=== PATIENT | male | born 1950 | race Caucasian/White ===

== ENCOUNTER 2018-01-22 11:37 | Emergency (ER) | payer BC, OTHER ==
--- OUTSIDE RECORDS SUMMARY | 2018-01-22 11:40 | XMS REPORT | Clinical Summary ---
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 Last Filed Vital Signs Not on file Plan of Treatment Health Maintenance Due Date Last Done Comments COLON CANCER SCREENING 2001 SHINGRIX VACCINE (1 of 2) 2001 ZOSTER VACCINE 2011 PNEUMOCOCCAL POLYSACCHARIDE VACCINE AGE 65 AND OVER 01/29/2016 PNEUMOCOCCAL-13 01/29/2016 INFLUENZA VACCINE 09/21/2017 Procedures Procedure Name Priority Date/Time Associated Diagnosis Comments CARDIAC MRI Routine 02/15/2017 12:24 PM Disorder of iron Results for this FUNCTION ONLY NON INDOOR LANDSCAPE ARCHITECT metabolism procedure are in CONTRAST Hepatic cirrhosis the results due to primary section. biliary cholangitis after 01/21/2017 Results Cardiac mri heart fx only noncontrast (02/15/2017 12:24 PM INDOOR LANDSCAPE ARCHITECT) Narrative Performed At [facility] CMR Report Name: DORIAN TOMAS :1950 Scan Date: 2017-02-15 12:15:13 Signed by Bakari Dykes M.D. (uid:20) 14:18:55. SUMMARY LIMITED STUDY TO ASSESS FOR IRON OVERLOAD. 1.There is no CMR criteria for cardiac iron overload (cardiac T2* 28 msec). Borderline criteria for hepatic iron overload (T2* 8msec ). CORE EXAM MEASUREMENTS IRON QUANTIFICATION MYOCARDIAL T2*:28 msec LIVER T2*:8 msec VASCULAR SCAN INFO GENERAL SEDATION SEDATION USED?:No CONTRAST AGENT FEMALE:No OR BLACK:Unknown VITALS HEIGHT:70 in HEIGHT:177.8 cm BODY WEIGHT:284.99 lbs BODY WEIGHT:129.27 kgs BSA::2.43 m^2 SYSTOLIC BP:131 mmHg DIASTOLIC BP:66 mmHg HEART RATE:68 BPM HEART RHYTHM:Sinus Rhythm PULSE SEQUENCE PULSE SEQUENCES:Other... OTHER, DESCRIBE::Spoiled gradient echo SETUP TYPE:Clinical INPATIENT:No LOCATION:[facility] INCOMPLETE SCAN:No REASON(S) FOR SCAN:Iron Overload Assessment ATTENDING PHYSICIAN:Segundo Canales TECHNICIANS:Cuate MORA ASSISTANTS:1) Jennifer Berman RN 2) Hugh Humphries Patient Account [id number] CPT Codes 25308 ICD10 Codes E83.19 Procedure Note Interface, Radiology Results In - 02/16/2017 2:19 PM RIMA [facility]on CMR Report Name: DORIAN TOMAS : 1950 Scan Date: 2017-02-15 12:15:13 Signed by Bakari Dykes M.D. (uid:20) 14:18:55. SUMMARY LIMITED STUDY TO ASSESS FOR IRON OVERLOAD. 1. There is no CMR criteria for cardiac iron overload (cardiac T2* 28 msec). Borderline criteria for hepatic iron overload (T2* 8 msec ). CORE EXAM MEASUREMENTS IRON QUANTIFICATION MYOCARDIAL T2*: 28 msec LIVER T2*: 8 msec VASCULAR SCAN INFO GENERAL SEDATION SEDATION USED?: No CONTRAST AGENT FEMALE: No OR BLACK: Unknown VITALS HEIGHT: 70 in HEIGHT: 177.8 cm BODY WEIGHT: 284.99 lbs BODY WEIGHT: 129.27 kgs BSA:: 2.43 m^2 SYSTOLIC BP: 131 mmHg DIASTOLIC BP: 66 mmHg HEART RATE: 68 BPM HEART RHYTHM: Sinus Rhythm PULSE SEQUENCE PULSE SEQUENCES: Other... OTHER, DESCRIBE:: Spoiled gradient echo SETUP TYPE: Clinical INPATIENT: No LOCATION: [facility] INCOMPLETE SCAN: No REASON(S) FOR SCAN: Iron Overload Assessment ATTENDING PHYSICIAN: Segundo Canales TECHNICIANS: Cuate Alonso RT ASSISTANTS: 1) Jennifer Berman RN 2) Hugh Humphries Patient Account [id number] CPT Codes 76685 ICD10 Codes E83.19 Performing Organization Address City/State/Zipcode Phone Number [facility] [address] [place] [address] after 01/21/2017 Insurance Payer Benefit Plan / Group Subscriber ID Type Phone Address BCBS BCBS CHOICE PPO/FEDERAL EMPL PPO xxxxxxxxxxxx PPO Advance Directives Patient has advance care planning documents on file. For more information, please contact:Chace Britton[address] [place] [address]
[2018-01-22 13:15] LABS: Absolute Lymphocytes (CBC) 1.2 K/uL (0.7-4.9); Absolute Monocytes 0.9 K/uL (0.1-1.3); Absolute Neutrophil 5.6 K/uL (1.8-8.0); Basophils % 0.5 % (0-1.3); Eosinophils % 0.6 % (0-4.4); Hematocrit 39.1 % (39.6-49.0); Lymphocytes % 15.8 % (15.3-44.8); MCV 101.1 fL (80-100); Monocytes % 11.2 % (3.3-12.3); RBC Red Blood Cell Count 3.87 M/uL (4.33-5.43)
[2018-01-22 13:19] LABS: Protime INR 1.18
[2018-01-22] MEDS ORDERED: NA CHLORIDE 0.9% 1,000 ML ONE (13:20)
[2018-01-22] MEDS ORDERED: ONDANSETRON 4 MG/2 ML VIAL ONE (13:20)
[2018-01-22] MEDS ORDERED: FENTANYL CITR 100 MCG/2 ML ONE (13:20)
[2018-01-22 13:33] LABS: Albumin 2.6 g/dL (3.4-5.0); Bilirubin Total 2.4 mg/dL (0.2-1.0); Potassium 4.1 mmol/L (3.5-5.1); Protein, Total 6.9 g/dL (6.4-8.2)
--- NOTE | 2018-01-22 13:40 | RAD REPORT ---
EXAM DESCRIPTION: CT - Spine Lumbar Wo Con - 01/22/2018 1:24 pm CLINICAL HISTORY: Back pain, radiculopathy COMPARISON: CT abdomen December 2014 -multiplanar reconstruction performed at the time of the study TECHNIQUE: Thin section axial imaging of the lumbar spine was performed. Sagittal and coronal recon struction images were generated and reviewed. All CT scans are performed using dose optimization technique as appropriate and may include automated exposure control or mA/KV adjustment according to patient size. FINDINGS: L2 body shows approximately 30% compression fracture deformity primarily involving the olegario tral aspect of the superior endplate. Posterior wall height is preserved. No acute fracture line seen in 2014 CT study shows this to be a stable finding. Remaining lumbar bodies are normal in height. Endplate spurring is seen in the lumbar spine. No lytic , sclerotic or expansile bony destructive process. Canal is 11 mm at the L1-2 disc level. Mild broad-based bulging of disc material seen at L2-3 with ce ntral canal 12 mm. Facet degenerative changes are present at this level. Mild disc bulging present at L3-4 with facet degenerative change. Thecal sac is 11 mm. No significant foraminal encroachment. Advanced L4-5 facet joint degenerative change along with disc bulge. There is encroachment on all shweta es of the thecal sac with the canal borderline stenotic at 10 mm. Bilateral foraminal encroachment pr esent. L5-S1 shows no central spinal stenosis. Facet degenerative change contributes to bilateral foraminal encroachment. IMPRESSION: L4-5 borderline central spinal stenosis along with bilateral foraminal encroachment from prominent facet hypertrophy, endplate spurring and disc bulge. Bilateral L5-S1 foraminal encroachment from uncovertebral joint hypertrophy, disc bulge and facet hyp ertrophy. Approximately 30% L2 compression fracture deformity along the superior endplate. This is stable.
--- NOTE | 2018-01-22 14:12 | EDPHYS ---
Physician Documentation [facility] Name: Dorian Cruz Age: 67 yrs Sex: Male : 1950 Arrival Date: 01/22/2018 Time: 11:43 Bed 23 Private MD: Jan Kenney ED Physician Fredrick Bell HPI: 01/22 12:53 This 67 yrs old Male presents to ER via Wheelchair with complaints of Leg ranjan Swelling, Leg Pain. 12:53 The patient presents with decreased range of motion. The complaints affect the lateral ranjan aspect of right thigh, right hamstring, medial aspect of right thigh and right quadriceps. Context: The problem was sustained at an unknown site. Onset: The symptoms/episode began/occurred 2 day(s) ago. Modifying factors: The symptoms are alleviated by remaining still, the symptoms are aggravated by movement. Associated signs and symptoms: The patient has no apparent associated signs or symptoms. Severity of symptoms: At their worst the symptoms were mild, moderate, in the emergency department the symptoms are unchanged. The patient has not experienced similar symptoms in the past. Historical: - Allergies: 12:26 No Known Allergies; aj1 - Home Meds: 12:26 Diuretic oral tab [Active]; aj1 - PMHx: 12:26 Cirrhosis; Hepatitis; aj1 - PSHx: 12:26 steel plate in left knee; Tonsillectomy; aj1 - Immunization history:: Flu vaccine is not up to date. - Social history:: Smoking status: Patient/guardian denies using tobacco. - Ebola Screening: : Patient denies travel to an Ebola-affected area in the 21 days before illness onset. - Family history:: not pertinent. ROS: 12:53 Constitutional: Negative for fever, chills, and weight loss, Eyes: Negative for injury, ranjan pain, redness, and discharge, ENT: Negative for injury, pain, and discharge, Neck: Negative for injury, pain, and swelling, Cardiovascular: Negative for chest pain, palpitations, and edema, Respiratory: Negative for shortness of breath, cough, wheezing, and pleuritic chest pain, Abdomen/GI: Negative for abdominal pain, nausea, vomiting, diarrhea, and constipation, : Negative for injury, bleeding, discharge, and swelling, Skin: Negative for injury, rash, and discoloration, Neuro: Negative for headache, weakness, numbness, tingling, and seizure, Psych: Negative for depression, anxiety, suicide ideation, homicidal ideation, and hallucinations, Allergy/Immunology: Negative for hives, rash, and allergies, Endocrine: Negative for neck swelling, polydipsia, polyuria, polyphagia, and marked weight changes, Hematologic/Lymphatic: Negative for swollen nodes, abnormal bleeding, and unusual bruising. 12:53 Back: Positive for decreased range of motion, pain at rest, of the lumbar area. Exam: 12:53 Constitutional: This is a well developed, well nourished patient who is awake, alert, ranjan and in no acute distress. Head/Face: Normocephalic, atraumatic. Eyes: Pupils equal round and reactive to light, extra-ocular motions intact. Lids and lashes normal. Conjunctiva and sclera are non-icteric and not injected. Cornea within normal limits. Periorbital areas with no swelling, redness, or edema. ENT: Nares patent. No nasal discharge, no septal abnormalities noted. Tympanic membranes are normal and external auditory canals are clear. Oropharynx with no redness, swelling, or masses, exudates, or evidence of obstruction, uvula midline. Mucous membranes moist. Neck: Trachea midline, no thyromegaly or masses palpated, and no cervical lymphadenopathy. Supple, full range of motion without nuchal rigidity, or vertebral point tenderness. No Meningismus. Chest/axilla: Normal chest wall appearance and motion. Nontender with no deformity. No lesions are appreciated. Cardiovascular: Regular rate and rhythm with a normal S1 and S2. No gallops, murmurs, or rubs. Normal PMI, no JVD. No pulse deficits. Respiratory: Lungs have equal breath sounds bilaterally, clear to auscultation and percussion. No rales, rhonchi or wheezes noted. No increased work of breathing, no retractions or nasal flaring. Abdomen/GI: Soft, non-tender, with normal bowel sounds. No distension or tympany. No guarding or rebound. No evidence of tenderness throughout. Back: No spinal tenderness. No costovertebral tenderness. Full range of motion. Skin: Warm, dry with normal turgor. Normal color with no rashes, no lesions, and no evidence of cellulitis. Neuro: Awake and alert, GCS 15, oriented to person, place, time, and situation. Cranial nerves II-XII grossly intact. Motor strength 5/5 in all extremities. Sensory grossly intact. Cerebellar exam normal. Normal gait. Psych: Awake, alert, with orientation to person, place and time. Behavior, mood, and affect are within normal limits. 12:53 Musculoskeletal/extremity: ROM: intact in all extremities, full active range of motion, Pulses: noted to be 4+ in the bilateral radial, brachial, femoral, popliteal, posterior tibial and and dorsalis pedis arteries., Sensation intact. Compartment Syndrome exam of affected extremity: is normal. DVT Exam: no swelling, negative Homans' sign noted on exam, no appreciated bluish discoloration, no erythema, no increased warmth, pain, tenderness. Vital Signs: 12:26 BP 117 / 56; Pulse 85; Resp 18; Temp 99.8(O); Pulse Ox 99% on R/A; Weight 134.[address] [facility] (R); Height 5 ft. 10 in. (177.80 cm) (R); Pain 6/10; 12:50 BP 122 / 75; Pulse 80; Resp 18; Pulse Ox 97% on R/A; aj1 14:06 BP 110 / 69; Pulse 79; Resp 18; Pulse Ox 97% on R/A; aj1 12:26 Body Mass Index 42.47 (134.26 kg, 177.[address] cm) [facility] MDM: 12:50 Patient medically screened. [facility] 12 12:53 Order name: CBC with Diff; Complete Time: 13:59 [facility] 01/22 12:53 Order name: Comprehensive Metabolic Panel; Complete Time: 13:59 [facility] 01/22 12:53 Order name: Lipase; Complete Time: 13:59 [facility] 01/22 12:53 Order name: AMMONIA; Complete Time: 13:59 [facility] 01/22 12:53 Order name: PT-INR; Complete Time: 13:59 [facility] 01/22 12:53 Order name: CT Lumbar Spine Wo Con; Complete Time: 13:59 [facility] 01/22 12:57 Order name: US Extremity Venous W Compression Laurent ranjan Administered Medications: 13:36 Drug: NS 0.9% 1000 ml Route: IV; Rate: 125 ml/hr; Site: right antecubital; [facility] 15:00 Follow up: IV Status: Completed infusion; IV Intake: 250ml [facility] 13:36 Drug: fentaNYL (PF) 25 mcg Route: IVP; Site: right antecubital; aj1 14:00 Follow up: Response: No adverse reaction aj1 13:36 Drug: Zofran 4 mg Route: IVP; Site: right antecubital; aj1 14:00 Follow up: Response: No adverse reaction aj1 14:43 Drug: Decadron - Dexamethasone 10 mg Route: IVP; Site: right antecubital; aj1 15:00 Follow up: Response: No adverse reaction aj1 15:16 Not Given (Patient Refused): fentaNYL (PF) 25 mcg IVP once mg2 Disposition: 01/22/18 14:11 Discharged to Home. Impression: Unspecified cirrhosis of liver, Low back pain, Fracture of second lumbar vertebra - compression , 30%, stable, Spinal stenosis, lumbar region, Sciatica, Obesity, unspecified. - Condition is Stable. - Discharge Instructions: Back Pain, Adult, Chronic Back Pain, Musculoskeletal Pain, Obesity, Adult, Back Injury Prevention, Twza-kg-Sjsd, Back Pain, Adult, Qsoz-ar-[id number]. - Prescriptions for Valium 2 mg Oral Tablet - take 1 tablet by ORAL route every 8 hours As needed; 20 tablet. Tramadol 50 mg Oral Tablet - take 1 tablet by ORAL route every 8 hours as needed; 24 tablet. Medrol (Nakul) 4 mg Oral Tablets, Dose Pack - take 1 tablet by ORAL route as directed - follow package instructions; 1 packet. - Medication Reconciliation Form, Thank You Letter, Antibiotic Education, Prescription Opioid Use, Work release form form. - Follow up: Jan Kenney MD; When: 2 - 3 days; Reason: Recheck today's complaints, Continuance of care, Re-evaluation by your physician. - Problem is new. - Symptoms have improved. Signatures: Dispatcher [employer] EDNH Luz Li RN RN aj1 Fredrick Bell MD MD cha Gardose, Michele RN RN mg2 Corrections: (The following items were deleted from the chart) 14:35 12:30 Extremity Venous Uni Ltd+[email or web address] ordered. [facility] 15:18 14:11 01/22/2018 14:11 Discharged to Home. Impression: Unspecified cirrhosis of liver; mg2 Low back pain; Fracture of second lumbar vertebra - compression , 30%, stable; Spinal stenosis, lumbar region; Sciatica; Obesity, unspecified. Condition is Stable. Forms are Medication Reconciliation Form, Thank You Letter, Antibiotic Education, Prescription Opioid Use. Follow up: Jan Kenney; When: 2 - 3 days; Reason: Recheck today's complaints, Continuance of care, Re-evaluation by your physician. Problem is new. Symptoms have improved. ranjan
--- NOTE | 2018-01-22 14:12 | ER ---
Nurse's Notes [facility] Name: Dorian Cruz Age: 67 yrs Sex: Male : 1950 Arrival Date: 01/22/2018 Time: 11:43 Bed 23 Private MD: Jan Kenney Diagnosis: Unspecified cirrhosis of liver;Low back pain;Fracture of second lumbar vertebra-compression , 30%, stable;Spinal stenosis, lumbar region;Sciatica;Obesity, unspecified Presentation: 01/22 12:24 Presenting complaint: Patient states: "Jere night I thought I had a bruise on my aj1 right hip, yesterday I tried icy hot and a heading pad and they didn't do a thing for me. My sister is telling me that my right leg is bigger than my left and I'm afraid that I might have a blood clot." Patient reports that blood clots run in his family. Transition of care: patient was not received from another setting of care. Onset of symptoms was January 20, 2018. Risk Assessment: Do you want to hurt yourself or someone else? Patient reports no desire to harm self or others. Initial Sepsis Screen: Does the patient meet any 2 criteria? No. Patient's initial sepsis screen is negative. Does the patient have a suspected source of infection? No. Patient's initial sepsis screen is negative. Care prior to arrival: None. 12:24 Method Of Arrival: Wheelchair aj1 12:24 Acuity: NGOC 3 aj1 Triage Assessment: 12:26 General: Appears in no apparent distress. uncomfortable, Behavior is calm, cooperative, aj1 appropriate for age. Pain: Complains of pain in right leg Pain currently is 6 out of 10 on a pain scale. Neuro: Level of Consciousness is awake, alert, obeys commands. Cardiovascular: Patient's skin is warm and dry. Respiratory: Airway is patent Respiratory effort is even, unlabored, Respiratory pattern is regular, symmetrical. Historical: - Allergies: 12:26 No Known Allergies; aj1 - Home Meds: 12:26 Diuretic oral tab [Active]; aj1 - PMHx: 12:26 Cirrhosis; Hepatitis; aj1 - PSHx: 12:26 steel plate in left knee; Tonsillectomy; aj1 - Immunization history:: Flu vaccine is not up to date. - Social history:: Smoking status: Patient/guardian denies using tobacco. - Ebola Screening: : Patient denies travel to an Ebola-affected area in the 21 days before illness onset. - Family history:: not pertinent. Screenin:50 Abuse screen: Denies threats or abuse. Denies injuries from another. Nutritional aj1 screening: No deficits noted. Tuberculosis screening: No symptoms or risk factors identified. 15:18 Fall Risk IV access (20 points). Ambulatory Aid- None/Bed Rest/Nurse Assist (0 pts). mg2 Assessment: 12:50 General: Appears in no apparent distress. uncomfortable, Behavior is calm, cooperative, aj1 appropriate for age. Pain: Complains of pain in low back area and right leg. Neuro: Level of Consciousness is awake, alert, obeys commands. Cardiovascular: Heart tones S1 S2 present Patient's skin is warm and dry. Rhythm is regular. Respiratory: Airway is patent Respiratory effort is even, unlabored, Respiratory pattern is regular, symmetrical, Denies shortness of breath. GI: No signs and/or symptoms were reported involving the gastrointestinal system. : No signs and/or symptoms were reported regarding the genitourinary system. EENT: No signs and/or symptoms were reported regarding the EENT system. Derm: No signs and/or symptoms reported regarding the dermatologic system. Skin is pink, warm \\T\\ dry. normal. Musculoskeletal: Swelling present in right leg. 14:06 Reassessment: Patient appears in no apparent distress at this time. No changes from aj1 previously documented assessment. Patient and/or family updated on plan of care and expected duration. Pain level reassessed. Patient is alert, oriented x 3, equal unlabored respirations, skin warm/dry/pink. Vital Signs: 12:26 BP 117 / 56; Pulse 85; Resp 18; Temp 99.8(O); Pulse Ox 99% on R/A; Weight 134.26 kg aj1 (R); Height 5 ft. 10 in. (177.80 cm) (R); Pain 6/10; 12:50 BP 122 / 75; Pulse 80; Resp 18; Pulse Ox 97% on R/A; aj1 14:06 BP 110 / 69; Pulse 79; Resp 18; Pulse Ox 97% on R/A; aj1 12:26 Body Mass Index 42.47 (134.26 kg, 177.80 cm) aj1 ED Course: 11:43 Patient arrived in ED. sb2 11:43 Jan Kenney MD is Private Physician. sb2 12:25 Triage completed. aj1 12:26 Arm band placed on Patient placed in waiting room, Patient notified of wait time. aj1 12:50 Fredrick Bell MD is Attending Physician. ranjan 12:50 Patient has correct armband on for positive identification. Placed in gown. Bed in low aj1 position. Call light in reach. nuclear monitoring technician on. Pulse ox on. NIBP on. 12:50 No provider procedures requiring assistance completed. Inserted saline lock: 22 gauge aj1 in right antecubital area, using aseptic technique. Blood collected. 12:53 Luz Li, RN is Primary Nurse. aj1 13:23 CT completed. Patient moved to CT via stretcher. Patient moved back from CT. cw1 13:24 CT Lumbar Spine Wo Con In Process Unspecified. EDMS 14:08 Jan Kenney MD is Referral Physician. ranjan 14:35 US Extremity Venous W Compression Laurent In Process Unspecified. EDMS 15:18 IV discontinued, intact, bleeding controlled, No redness/swelling at site. Pressure mg2 dressing applied. Administered Medications: 13:36 Drug: NS 0.9% 1000 ml Route: IV; Rate: 125 ml/hr; Site: right antecubital; aj1 15:00 Follow up: IV Status: Completed infusion; IV Intake: 250ml aj1 13:36 Drug: fentaNYL (PF) 25 mcg Route: IVP; Site: right antecubital; aj1 14:00 Follow up: Response: No adverse reaction aj1 13:36 Drug: Zofran 4 mg Route: IVP; Site: right antecubital; aj1 14:00 Follow up: Response: No adverse reaction aj1 14:43 Drug: Decadron - Dexamethasone 10 mg Route: IVP; Site: right antecubital; aj1 15:00 Follow up: Response: No adverse reaction aj1 15:16 Not Given (Patient Refused): fentaNYL (PF) 25 mcg IVP once mg2 Intake: 15:00 IV: 250ml; Total: 250ml. aj1 Outcome: 14:11 Discharge ordered by . ranjan 15:18 Discharged to home via wheelchair, with family. mg2 15:18 Condition: stable 15:18 Discharge instructions given to patient, family, Instructed on discharge instructions, follow up and referral plans. medication usage, Demonstrated understanding of instructions, follow-up care, medications, Prescriptions given X 3. 15:18 Patient left the ED. mg2 Signatures: Dispatcher [employer] EDLuz So, RN RN aj1 Fredrick Bell MD MD cha Woodley, Crystal cw1 Stephanie Gandhi sb2 Robin Oliver RN RN mg2
[2018-01-22] MEDS ORDERED: DEXAMETHASONE 10 MG/ML VIAL ONE (14:44)
--- NOTE | 2018-01-22 14:55 | RAD REPORT ---
EXAM DESCRIPTION: US - Extrem Venous W Compress Laurent - 01/22/2018 2:34 pm CLINICAL HISTORY: Bilateral leg pain and swelling COMPARISON: None. TECHNIQUE: Real-time sonographic evaluation of the bilateral lower extremity common femoral, superfi cial femoral, popliteal and posterior tibial veins was performed. FINDINGS: Normal compressibility, flow augmentation, phasic flow and spontaneous flow are identified in the left and right lower extremity common femoral, superficial femoral, popliteal and posterior t ibial veins. No intraluminal filling defects seen. IMPRESSION: No DVT in either lower extremity.
== END 2018-01-22 15:18 | disposition home or self-care (01) ==
LOC: ER 11:37
DX: S32.028A Other fracture of second lumbar vertebra, initial encounter for closed fracture (principal); M48.061 Spinal stenosis, lumbar region without neurogenic claudication; M54.30 Sciatica, unspecified side; K74.60 Unspecified cirrhosis of liver; E66.9 Obesity, unspecified
CPT/HCPCS: 36415; 72131; 80053; 82140; 83690; 85025; 85610; 93970; 96361; 96374; 96375; 99285; J1100; J2405; J3010; J7030

== ENCOUNTER 2018-07-24 08:36 | Day surgery (SDC) | payer OTHER ==
--- OUTSIDE RECORDS SUMMARY | 2018-07-24 08:50 | XMS REPORT ---
:1950 Author Organization [employer] Care Team Providers Name Role Phone TobarRenato Provider Role Unavailable Allergies, Adverse Reactions, Alerts Substance Reaction Event Type codeine Info Not Available Drug Allergy Problems Problem Type Condition Code Onset Dates Condition Status Problem Sciatica, right side M54.31 Active Problem Strain of left patellar tendon, S86.812A Active initial encounter Problem Pain, joint, knee, left M25.562 Active Assessment Strain of left patellar tendon, S86.812D Active subsequent encounter Assessment Sciatica, right side M54.31 Active Assessment Pain, joint, knee, left M25.562 Active Medications Medication Code Code Instructions Start End Status Dosage System Date Date spironolactone NDC 0 Active not defined Furosemide NDC 0 Active not defined Meloxicam [facility] [id number] 15 MG Orally Mar 29, June 27, Active 1 tablet Once a day 2018 2018 Results No Known Results Summary Purpose [employer] Submission
--- OUTSIDE RECORDS SUMMARY | 2018-07-24 08:50 | XMS REPORT | Clinical Summary ---
:1950 Author Organization [facility] Address [address] [place] [address] Care Team Providers Name Role Phone Jan Kenney MD Primary Care Provider Allergies Not on File Medications Not on file Active Problems Not on file Social History Tobacco Use Types Packs/Day Years [...] Last Done Comments COLON CANCER SCREENING 2001 SHINGLES VACCINES (#1) 2001 65+ PNEUMOCOCCAL VACCINE (1 of 2 - PCV13) 01/29/2016 PNEUMOCOCCAL POLYSACCHARIDE VACCINE AGE 65 AND OVER 01/29/2016 INFLUENZA VACCINE 09/21/2018 Results Not on fileafter 07/23/2017 Advance Directives Patient has advance care planning documents on file. For more information, please contact:[address] [address]
[2018-07-24] MEDS ORDERED: BALANCED SALT IRRIG PLAIN 500 ML BTL IRR ONE (09:26)
[2018-07-24] MEDS ORDERED: EPINEPHRINE/PF 1 MG/ML AMP ONE (09:26)
[2018-07-24] MEDS ORDERED: NS 0.9% VIAL 10 ML ONE (09:26)
[2018-07-24] MEDS ORDERED: MOXIFLOXACIN HCL 10 DROPS/ML **OR USE OPTH ONE (09:26)
[2018-07-24] MEDS ORDERED: DUOVISC 1 KIT OPTH ONE (09:26)
[2018-07-24] MEDS ORDERED: LIDOCAINE 2% MPF 5 ML VIAL ONE ×2 (09:35→10:40)
[2018-07-24] MEDS ORDERED: BUPIVACAINE 0.25% PF 10 ML VIAL ONE (09:36)
[2018-07-24] MEDS ORDERED: NA CHLORIDE 0.9% 500 ML ONE (09:36)
[2018-07-24] MEDS ORDERED: TETRACAINE HCL 0.5% 4ML OPTH ONE (09:36)
[2018-07-24] MEDS: CYCLOPENTOLATE 1% OPTH 2 ML ONE ×3 (09:49→10:01)
[2018-07-24] MEDS: PHENYLEPHRINE 10% OPTH 5ML ONE ×3 (09:49→10:01)
[2018-07-24] MEDS ORDERED: PROPOFOL 200 MG/20 ML VIAL IV ONE (10:40)
--- NOTE | 2018-07-24 11:26 | P.BOP ---
Preoperative diagnosis: Nuclear sclerotic, anterior and posterior subcapsular cataract OD Postoperative diagnosis: Same Primary procedure: Phacoemulsification with IOL OD Estimated blood loss: None Anesthesia: Local (Subtenon's infusion with anesthesia for cataract surgery) Complications: None Implants: [id number] +12.0 Transferred to: Other (Day surgery) Condition: Good
--- NOTE | 2018-07-24 22:48 | OP ---
Date of Procedure: 07/24/2018 Surgeon: Ernestina Milian MD Anesthesiologist: Shazia Dick CRNA; Chuy Ferris MD. Preoperative Diagnoses: Nuclear sclerotic cataract, anterior and posterior subcapsular cataract, rig ht eye. Operation Performed: Phacoemulsification with intraocular lens implant, right eye. Anesthesia: Per cataract surgery. Complications: None. Description Of Procedure: In day surgery, the patient was prepped with Betadine and draped. A conju nctival incision was made in the inferior nasal quadrant with Fredi scissors. A sub-Tenon block c onsisting of a 1:1 mixture of 2% Xylocaine and 0.25% bupivacaine was placed through the conjunctival incision with a blunt cannula. A Honan balloon was placed over the eye and the patient was transferr ed to the operating room. In the operating room the patient was prepped and draped in the usual sterile fashion for ophthalmic surgery. A lid speculum was placed in the right eye. Two paracentesis sites were made superiorly an d inferiorly in the limbal cornea. Viscoat was placed in the anterior chamber and a crescent blade w as used to make a corneal groove and tunnel, and a keratome was used to enter the anterior chamber. Provisc was placed in the anterior chamber and a 360 degree capsulotomy was performed with a cystitom e. The lens was hydrodissected with BSS and rotated freely. The lens was removed with a stop and ch op technique. 17.78 Phaco CDE was used to remove the lens. Residual cortex was removed with the irr igation and aspiration. Provisc was placed in the capsular bag. A ZCB00 +12.0 lens was placed in th e capsular bag without complications. Irrigation and aspiration were used to remove residual viscoel astic. The paracentesis sites were hydrated with BSS. The wound and paracentesis sites were inspect ed and found to be watertight. Vigamox 0.07 cc was placed intracamerally at the end of the procedure . The eye was irrigated with balanced salt solution. The eye was patched with a soft cotton patch a nd Cade metal shield. The patient was returned to day surgery in good condition. Comments: Discharge Instructions: Mr. Cruz is discharged to home in good condition and is to follow up with Dr Shelby Milian in the morning. JAIRO/MODL Voice ID: [id number] Report ID: [id number]
== END 2018-07-24 11:59 | disposition home or self-care (01) ==
LOC: OR 08:36
PROVIDERS: ATTEND Ophthalmology Retina Specialist
PROC: 08RJ3JZ Replacement of Right Lens with Synthetic Substitute, Percutaneous Approach (ICD-10-PCS; principal; 2018-07-24 10:45)
DX: H25.11 Age-related nuclear cataract, right eye (principal); H25.031 Anterior subcapsular polar age-related cataract, right eye; H25.041 Posterior subcapsular polar age-related cataract, right eye; Z88.6 Allergy status to analgesic agent; Z83.3 Family history of diabetes mellitus; Z83.518 Family history of other specified eye disorder
CPT/HCPCS: 66984; J2704; J0171

== ENCOUNTER → 2018-09-18 | Day surgery (SDC) | payer OTHER ==
[~2018-09-18] MED LIST: BALANCED SALT IRRIG PLAIN 500 ML BTL IRR ONE; BSS OPTHALMIC SOL 15 ML BOT OPTH ONE; BUPIVACAINE 0.25% PF 10 ML VIAL ONE; DUOVISC 1 KIT OPTH ONE; EPINEPHRINE/PF 1 MG/ML AMP ONE; LIDOCAINE 1% MPF 2 ML AMPULE ONE; LIDOCAINE 2% MPF 5 ML VIAL ONE; LIDOCAINE HCL/PF 3.5% OPTH GEL ONE; MIDAZOLAM HCL 2 MG/2 ML INJ ONE; MOXIFLOXACIN HCL 10 DROPS/ML **OR USE OPTH ONE; NA CHLORIDE 0.9% 500 ML ONE; TETRACAINE HCL 0.5% 4ML OPTH ONE
--- OUTSIDE RECORDS SUMMARY | 2018-09-18 11:33 | XMS REPORT ---
[...] Furosemide NDC 0 Active not defined Meloxicam [facility] [id number] 15 MG Orally Mar 29, June 27, Active 1 tablet Once a day 2018 2018 Results No Known Results Summary Purpose eClinicalWorks Submission
--- OUTSIDE RECORDS SUMMARY | 2018-09-18 11:33 | XMS REPORT | Clinical Summary ---
:1950 [address] [facility] Address [address] [place] [address] Care Team Providers Name Role Phone Jan [...] Health Maintenance Due Date Last Done Comments COLONOSCOPY SCREENING 2001 SHINGLES VACCINES (#1) 2001 65+ PNEUMOCOCCAL VACCINE (1 of 2 - PCV13) 01/29/2016 INFLUENZA VACCINE 09/21/2018 Results Not on fileafter 09/17/2017 Advance Directives Patient has advance care planning documents on file. For more information, please contact:[place] [id number] [place] [address]
[2018-09-18] MEDS: PHENYLEPHRINE 10% OPTH 5ML ONE ×3 (12:30→12:40)
[2018-09-18] MEDS: CYCLOPENTOLATE 1% OPTH 2 ML ONE ×3 (12:30→12:40)
--- NOTE | 2018-09-18 13:59 | P.BOP ---
Preoperative diagnosis: Nuclear sclerotic, anterior and posterior subcapsular cataract OS Postoperative diagnosis: Same Primary procedure: Phacoemulsification with IOL OS Estimated blood loss: None Anesthesia: Local (Topical with anesthesia for cataract surgery) Complications: None Implants: ZCB00 +14.0 Transferred to: Other (Day surgery) Condition: Good
--- NOTE | 2018-09-19 00:58 | OP ---
Surgeon: Ernestina Milian MD Anesthesiologist: Luis Felipe CRNA and Nadeem Herrera MD Preoperative Diagnosis: Nuclear sclerotic anterior and posterior subcapsular cataract, left eye. Procedure Performed: Phacoemulsification with intraocular lens implant, left eye. Anesthesia: Per cataract surgery. Complications: None. Description Of Procedure: In the operating room the patient was prepped and draped in the usual ster ile fashion for ophthalmic surgery. A lid speculum was placed in the OS. Two paracentesis sites wer e made superiorly and inferiorly in the limbal cornea. Viscoat was placed in the anterior chamber an d a crescent blade was used to make a corneal groove and tunnel, and a keratome was used to enter the anterior chamber. Provisc was placed in the anterior chamber and a 360 degree capsulotomy was perfo rmed with a cystitome. The lens was hydrodissected with BSS and rotated freely. The lens was remove d with a stop and chop technique. 8.7 phaco CDE was used to remove the lens. Residual cortex was re moved with the irrigation and aspiration. Provisc was placed in the capsular bag. A ZCB00 +14.0 sandor s was placed in the capsular bag without complications. Irrigation and aspiration was used to remove residual viscoelastic. The paracentesis sites were hydrated with BSS. The wound and paracentesis s ites were inspected and found to be watertight. Vigamox 0.07 cc was placed intracamerally at the end of the procedure. The eye was irrigated with balanced salt solution. The eye was patched with a so ft cotton patch and Cade metal shield. Comments: Akten was placed in the eye in Day Surgery and irrigated out of the eye with BSS in the OR . Preservative-free 1% lidocaine was placed in the anterior chamber prior to Viscoat. The lens was slightly loose. Discharge Instructions: Mr. Cruz was discharged to home in good condition and is to follow up with Shobha Milian in the morning. JAIRO/AMPARO Voice ID: [id number] Report ID: [id number]
== END | disposition home or self-care (01) ==
LOC: OR 11:25
PROVIDERS: ATTEND Ophthalmology Retina Specialist
PROC: 08RK3JZ Replacement of Left Lens with Synthetic Substitute, Percutaneous Approach (ICD-10-PCS; principal; 2018-09-18 11:30)
DX: H25.012 Cortical age-related cataract, left eye (principal); H25.042 Posterior subcapsular polar age-related cataract, left eye
CPT/HCPCS: 66984; 36415; 84132; J0171; J2250; J2001

== ENCOUNTER 2020-02-02 13:24 | Emergency (ER) | payer OTHER ==
--- OUTSIDE RECORDS SUMMARY | 2020-02-02 13:26 | XMS REPORT | Summary of Care ---
:1950 Author Organization [facility] Address [address] [place] [address] Care Team Providers Name Role Phone Pcp, Patient Does Not Have A Primary Care Provider +1-000-00 0-0000 Encounter Details Date Type Department Care Team Description 12/25/2019 Letter (Out) [facility] [employer] Message s Doctor Unassigned, No [address] [facility] [place] [address] [address] [facility] [phone] [place] [address] Allergies Not on Filedocumented as of this encounter (statuses as of 12/25/2019) Medications Not on filedocumented as of this encounter (statuses as of 12/25/2019) Active Problems Not on filedocumented as of this encounter (statuses as of 12/25/2019) Social History Tobacco Use Types Packs/Day Years Used Date Never Assessed Sex Assigned at Date Recorded Not on file documented as of this encounter Last Filed Vital Signs Not on filedocumented in this encounter Plan of Treatment Date Type Specialty Care Team Description 12/25/2019 Laboratory Only Family Medicine Ammy Patten, FN P [address] [facility] [address] [place] [address] [phone] Contact with or Lab, Adc Fam Pob I exposure to viral disease (Primar y Dx) Health Maintenance Due Date Last Done Comments HEPATITIS C (HCV) SCREEN 1950 Depression Screening 1962 DTaP,Tdap,and Td Vaccines (1 - Tdap) 1970 COLON CANCER SCREENING ANNUAL FIT/FOBT 2001 COLON CANCER SCREENING FIT DNA EVERY 3 YEARS 2001 COLON CANCER SCREENING SIGMOIDOSCOPY EVERY 5 YEARS 2001 COLONOSCOPY 2001 Colorectal Cancer Screening 2001 Zoster Recombinant Vaccine (SHINGRIX) (1 of 2) 2001 Medicare Wellness Visit 01/29/2016 PNEUMOCOCCAL VACCINES 65+ (1 of 1 - PPSV23) 01/29/2016 INFLUENZA VACCINE (#1) 2019 documented as of this encounter Results Not on filedocumented in this encounter Insurance Payer Benefit Plan / Subscriber ID Effective Dates Phone Addre ss Type Group MEDICARE MEDICARE PART [id number] 2017-Subhash [phone] Medicare A [address] t [id number] [place] [id number] documented as of this encounter
--- OUTSIDE RECORDS SUMMARY | 2020-02-02 13:26 | XMS REPORT | Summary of Care ---
:1950 Author Organization [facility] [place] Address [address] [place] [address] Care Team Providers Name Role Phone Pcp, Patient Does Not Have A Primary Care Provider +1-000-00 0-0000 Reason for Visit Reason Comments LAB covid testing- weakness and fatigue Encounter Details Date Type Department Care Team Description 12/25/2019 Laboratory Only [facility] Ammy Calzada, SOFTBALL CORE MOLDER [address] [facility] [address] [place] [address] Contact with or Medicine - [facility], Adc Fam Pob I exposure to viral [address] [facility] disease (P rimary Dx) [place] [address] Allergies Not on Filedocumented as of this encounter (statuses as of 12/25/2019) Medications Not on filedocumented as of this encounter (statuses as of 12/25/2019) Active Problems Not on filedocumented as of this encounter (statuses as of 12/25/2019) Social History Tobacco Use Types Packs/Day Years Used Date Never Assessed Sex Assigned at Date Recorded Not on file COVID-19 Exposure Response Date Recorded In the last month, have you been in contact with No / Unsure 12/25/2019 5:05 PM RECREATION ADVISER someone who was confirmed or suspected to have Coronavirus / COVID-19? documented as of this encounter Last Filed Vital Signs Not on filedocumented in this encounter Nursing Notes Yumi Billings MA - 12/25/2019 5:00 PM CSTMitthomas Cruz is a 69 year old male here for COVID Screening with a Nasopharyngeal Swab All droplet and contact precautions taken with appropriate PPE worn while interacting with patient. ? Goggles ? N95 Mask ? Gloves ? Gown RR 20 Pulse Ox 93-94% Patient educated on plan of care for visit, swabbing technique, risks and benefits of test and length of time to receive results. Verbal consent obtained to perform test. CDC Fact Sheet for Patients nCoV Diagnostic Panel dated 05/06/2019 and Factsheet What to Do if Sick with COVID 19 04/16/19 provided. Patient swabbed per appropriate nasopharyngeal technique, and patient tolerated well. Patient was discharged from the testing clinic in stable condition. Yumi Stone MA 12/25/2019 5:06 PM Bilate nares swabbed during COVID19 nasopharyngeal swab. EATION ADVISER documented in this encounter Plan of Treatment Name Type Priority Associated Diagnoses Order S chedule COVID-19 ([facility] Routine Contact with or exposure Expected: 12/25/2019, TESTING) to viral disease Expires: Health Maintenance Due Date Last Done Comments [...] Results Not on filedocumented in this encounter Visit Diagnoses Diagnosis Contact with or exposure to viral diseas e - Primary Contact with or exposure to other viral diseases documented in this encounter Additional Health Concerns Infection Onset Date Last Indicated Resolved Time COVID-19 Rule Out 12/25/2019 12/25/2019 documented as of this encounter Insurance Payer Benefit Plan / Subscriber ID Effective Dates Phone Addre ss Type Group MEDICARE MEDICARE PART [id number] 2017-Subhash [phone] [address] [facility] Medicare A & B t 2 [id number] [place] [id number] documented as of this encounter
--- OUTSIDE RECORDS SUMMARY | 2020-02-02 13:26 | XMS REPORT | Clinical Summary ---
:1950 Author Organization [facility] Address [address] [place] [address] Care Team Providers Name Role Phone MD Anne Marie Primary Care Provider Allergies Not on File Medications Not on file Active Problems Not on file Social History Tobacco Use Types Packs/Day Years Used Date Never Assessed Sex Assigned at Date Recorded Not on file Last Filed Vital Signs Not on file Plan of Treatment Health Maintenance Due Date Last Done Comments COLONOSCOPY SCREENING 2001 SHINGLES VACCINES (#1) 2001 65+ PNEUMOCOCCAL VACCINE (1 of 1 - PPSV23) 01/29/2016 INFLUENZA VACCINE 09/22/2019 Results Not on fileafter 02/01/2019 Advance Directives For more information, please contact: [phone] Type Date Recorded 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
--- OUTSIDE RECORDS SUMMARY | 2020-02-02 13:26 | XMS REPORT | Summary of Care ---
:1950 Author Organization [facility] Address [address] [place] [address] Care Team Providers Name Role Phone Pcp, Patient Does Not Have A Primary Care Provider +1-000-00 0-0000 Reason for Visit Reason Comments LAB covid testing- weakness and fatigue Encounter Details Date Type Department Care Team Description 12/25/2019 Laboratory Only [facility] Ammy Calzada, FLIGHT SERVICE AGENT [address] [facility] [address] [place] [address] Contact with or Medicine - [facility], Adc Fam Pob I exposure to viral [address] [facility] disease (P rimary Dx) [place] [address] Allergies Not on Filedocumented as [...] with No / Unsure 12/25/2019 5:05 PM REACTOR KETTLE OPERATOR someone who was confirmed or suspected to [...] Bilate nares swabbed during COVID19 nasopharyngeal swab. TOR KETTLE OPERATOR documented in this encounter Plan of Treatment Date Type Specialty Care Team Description 12/25/2019 Urgent Care Family Medicine Ammy Patten, GERARDO P [address] [facility] [address] [place] [address] [phone] Provider, [facility] Name Type Priority Associated Diagnoses Order S [...] Addre ss Type Group MEDICARE MEDICARE PART [id number] 2017-Subhash [phone] Medicare A & B t 2 [id number] [place] [id number] documented as of this encounter
--- OUTSIDE RECORDS SUMMARY | 2020-02-02 13:26 | XMS REPORT | Summary of Care ---
:1950 Author Organization [facility] - [facility] Address [address] [place] [id number] Care Team Providers Name Role Phone Pcp, Patient Does Not Have A Primary Care Provider [id number] Reason for Visit Reason Comments Shortness of Breath 2 weeks WHEEZING 2 weeks Cough 2 weeks Encounter Details Date Type Department Care Team Description 12/25/2019 Urgent Care [facility] Ammy Calzada, LEASE PICKER [address] [facility] [address] [facility] [address] [place], [place] [address] Viral illness (Primary Dx); Medicine - [place] Provider, [facility] Urgent Care Cough; [address] [facility] SOB (short ness of breath); Drive Exposure to COVID-19 [place] [id number] Allergies No Known Allergiesdocumented as of this encounter (statuses as of 12/25/2019) Medications Medication Sig Dispensed Refills Start Date End Date Status albuterol 90 Inhale 2 Puffs 8.5 g 0 12/25/2019 A ctive mcg/actuation every 6 (six) hours inhalerIndications: as needed for Cough, SOB (shortness Wheezing, Shortness of breath) of Breath or Chest tightness. documented as of this encounter (statuses as of 12/25/2019) Active Problems No known active problemsdocumented as of this encounter (statuses as of 12/25/2019) Social History Tobacco Use Types Packs/Day Years Used Date Never Smoker Smokeless Tobacco: Never Used Sex Assigned at Date Recorded Not on file COVID-19 Exposure Response Date Recorded In the last month, have you been in contact with No / Unsure 12/25/2019 5:05 PM CADDY/CADDIE SUPERVISOR someone who was confirmed or suspected to have Coronavirus / COVID-19? documented as of this encounter Last Filed Vital Signs Vital Sign Reading Time Taken Comments Blood Pressure 129/71 12/25/2019 5:13 PM CADDY/CADDIE SUPERVISOR Pulse 73 12/25/2019 5:13 PM CADDY/CADDIE SUPERVISOR Temperature 37.3 C (99.1 F) 12/25/2019 5:13 PM CADDY/CADDIE SUPERVISOR Respiratory Rate 20 12/25/2019 5:13 PM CADDY/CADDIE SUPERVISOR Oxygen Saturation 94% 12/25/2019 5:15 PM CADDY/CADDIE SUPERVISOR Inhaled Oxygen Concentration - - Weight 124.7 kg (275 lb) 12/25/2019 5:13 PM CADDY/CADDIE SUPERVISOR Height 177.8 cm (5' 10") 12/25/2019 5:13 PM CADDY/CADDIE SUPERVISOR Body Mass Index 39.46 12/25/2019 5:13 PM CADDY/CADDIE SUPERVISOR documented in this encounter Patient Instructions Patient InstructionsAmmy Patten FNP - 12/25/2019 5:20 PM CST1. Viral illness 2. Cough 3. SOB (shortness of breath) - albuterol 90 mcg/actuation inhaler; Inhale 2 Puffs every 6 (six) hours as needed for Wheezing, Shortness of Breath or Chest tightness. Dispense: 8.5 g; Refill: 0 - XR CHEST 2 VW; Future - counseled patient about at home care: Use Advil Cold/Sinus as needed for fever and/or congestion Use Robitussin DM or Mucinex DM to help with cough Tylenol and Ibuprofen as needed for pain and fever Rest Raise head of bed Increase fluids -HYDRATION WITH CLEAR LIQUIDS Vitamin C Warm salt water gargles or CEPACOL sprays for sore throat. Breath humidified air (steam) SIPPING WARM DRINKS may help. Warm Compresses (if sinus pressure or pain). HAND HYGIENE (with alcohol gels or hand washing) Advised to take Tylenol or Ibuprofen as per label recommendation as needed for pain or fever Honey 10mL (2 teaspoons) has been shown to relieve cough at bedtime. Dark Chocolate helps with cough (xanthenes) Avoidance of cigarette smoke, alcoholic drinks, diving into deep water and air travel is useful. Irrigate your nose with normal saline moisture spray 2 or 3 times a day. You may use a spray, squeeze bottle, or nasal pot. ? Nasal Congestion (Stopped Up): Oxymetazoline HCl (Afrin, 4-Way, & more) 0.05 % nasal spray, 1 spray each nostril at bedtime. Limit to 5 nights. If use twice a day then limit to 3 days. - Advised to follow up with PCP, return to Urgent Care, or go to the nearest Emergency Department sooner for any new, worsening, persistent, or concerning symptoms. 4. Exposure to COVID-19 virus - COVID-19 (PCR MOLECULAR TESTING); Future - COVID-19 (PCR MOLECULAR TESTING) - Quarantine until your COVID results are back Criteria met - Covid testing - pending. This test can take 2-3 days to be resulted. While the test is pending...Please socially isolate your self - do not go out to stores or out in public. We will contact you once we have the results. If you are negative - continue with symptomatic treatment. (see below) Patients who have positive results will be contacted by the health department to enforce quarantine measures and for additional community contact tracing. The Infection Control Department will also undertake evaluation of exposures in our healthcare facility. If symptoms worsen - please call your Primary Care Doctor - do not go into the clinic. Call first. Educated on the following at home care: - Discussed likely viral diagnosis and treatment plan with pt. - pt advised on frequent effective handwashing - pt advised to increase fluid intake , stay hydrated and get plenty of rest. - advised to have the pt take OTC to treat symptoms. - Pt advised to administer Tylenol as per label recommendation as needed for pain or fever - Cover mouth when coughing, wear mask - Stay in your own bedroom and use a separate bathroom - Keep at least 6 feet from you and others - Avoid sharing personal household items, dishes, glasses, cups, towels -Clean high traffic/touch areas daily. These include but not limited to: doorknobs, refrigerator/cabinet handles, phones, keyboards, tablets, light switches. - AVS and Written/handout materials appropriate to problem and teaching provided. - advised to go to the nearest Emergency Department sooner for any new, worsening, persistent, or concerning symptoms - Patient verbalized understanding of all instructions - Follow-up with PCP as needed, if no improvement EDUCATION: Handouts given: Patient educated on plan of care for visit, swabbing technique,risks and benefits of test and lengthof time to receive results. Verbal consent obtained to perform test. CDC Fact Sheet for patients nCoV Diagnostic Panel dated 05/06/2019 provided. "What to do if you are sick with COVID-19" CDC information guide reviewed with the patient and handout given to patient Education given to self quarantine until results are back. Will notify patient with results. Patient states understanding and all questions answered. Plan of care, goals and medications discussed with patient. Patient voices understanding. Barriers to care: none Ability to manage care: good FOLLOW UP: Pt advised to call 911 or go to the nearest Emergency Department sooner for any worsening, persistent, or concerning symptoms ER precautions given Plan of care, desired health behaviors, goals, and medication discussed with patient. Education resources provided and reviewed with AVS. Patient/guardian/family verbalized understanding & agrees to plan of care. Urgent Care precautions and follow up : 1. Return to clinic if your symptoms should worsen or fail to improve within 72 hours. 2. The care provided in the urgent care was for acute problems only. 3. You should follow up with your primary care provider within 72 hours. 4. Fill and take all your medications as prescribed. 5. Make sure you are staying adequately hydrated. MAY FOLLOW-UP WITH A PROVIDER OF YOUR CHOICE, SUCH : 1. A PHYSICIAN OF YOUR CHOICE OR, IF YOU WISH TO FOLLOW-UP WITHIN THE [facility], MAY TRY THESE OPTIONS (CLINIC APPOINTMENTS AVAILABLE ON RAPL-DC-BSOG BASIS): 1. SCHEDULE AN APPOINTMENT ONLINE AT WWW[facility] 2. OR CALL THE [facility] ACCESS CENTER AT OR 3. OR CALL YOUR [facility] PHYSICIAN'S OFFICE DIRECTLY IF YOU ARE ALREADY AN ESTABLISHED [facility] PATIENT. After hours care nurse access center available by calling [phone] 24 hours 7 days per week. Ammy MCDONALD [facility] Y/CADDIE SUPERVISOR documented in this encounter Progress Notes Ammy Patten FNP - 12/25/2019 5:20 PM CST Cc: Chief Complaint Patient presents with Shortness of Breath 2 weeks WHEEZING 2 weeks Cough 2 weeks Dorian Anthony is a 69 year old male presents with concern for cough and sob. He started about 2 weekago with cough. Now with worsening cough. Some sinus congestion and drainage. He's not taking any otc medications. Some sob when coughing. Denies any fever, chills or body aches. Eating/drinking good.His cousin tested positive for covid. URI Presenting symptoms: congestion, cough and rhinorrhea Presenting symptoms: no ear pain, no facial pain, no fatigue, no fever and no sore throat Congestion: Location: Nasal Interferes with sleep: no Interferes with eating/drinking: no Cough: Cough characteristics: Dry Severity: Mild Onset quality: Gradual Duration: 2 weeks Timing: Intermittent Progression: Unchanged Chronicity: New Rhinorrhea: Quality: Clear Severity: Mild Duration: 2 weeks Timing: Intermittent Progression: Unchanged Severity: Mild Onset quality: Gradual Duration: 2 weeks Timing: Intermittent Progression: Unchanged Chronicity: New Relieved by: None tried Worsened by: Nothing Ineffective treatments: None tried Associated symptoms: sneezing Associated symptoms: no arthralgias, no headaches, no myalgias, no neck pain, no sinus pain, no swollen glands and no wheezing Risk factors: being elderly and sick contacts Risk factors: no immunosuppression, no recent illness and no recent travel Allergies Dorian has No Known Allergies. Medications No outpatient medications prior to visit. No facility-administered medications prior to visit. Histories History reviewed. No pertinent past medical history. History reviewed. No pertinent surgical history. Social History Socioeconomic History Marital status: Single Spouse name: Not on file Number of children: Not on file Years of education: Not on file Highest education level: Not on file Occupational History Not on file Social Needs Financial resource strain: Not on file Food insecurity Worry: Not on file Inability: Not on file Transportation needs Medical: Not on file Non-medical: Not on file Tobacco Use Smoking status: Never Smoker Smokeless tobacco: Never Used Substance and Sexual Activity Alcohol use: Not on file Drug use: Not on file Sexual activity: Not on file Lifestyle Physical activity Days per week: Not on file Minutes per session: Not on file Stress: Not on file Relationships Social connections Talks on phone: Not on file Gets together: Not on file Attends mandaeism service: Not on file Active member of club or organization: Not on file Attends meetings of clubs or organizations: Not on file Relationship status: Not on file Intimate partner violence Fear of current or ex partner: Not on file Emotionally abused: Not on file Physically abused: Not on file Forced sexual activity: Not on file Other Topics Concern Not on file Social History Narrative Not on file History reviewed. No pertinent family history. Review of Systems Constitutional: Negative for activity change, appetite change, chills, fatigue and fever. HENT: Positive for congestion, postnasal drip, rhinorrhea and sneezing. Negative for ear pain, sinuspain and sore throat. Respiratory: Positive for cough and shortness of breath. Negative for wheezing and stridor. Gastrointestinal: Negative for diarrhea, nausea and vomiting. Musculoskeletal: Negative for arthralgias, myalgias and neck pain. Skin: Negative for rash. Neurological: Negative for dizziness, weakness and headaches. All other systems reviewed and are negative. Vital Signs BP 129/71 | Pulse 73 | Temp 37.3 C (99.1 F) (Oral) | Resp 20 | Ht 5' 10" (1.778 m) | Wt 275lb (124.7 kg) | SpO2 94% | BMI 39.46 kg/m Physical Exam Vitals signs and nursing note reviewed. Constitutional: Appearance: He is well-developed. HENT: Head: Normocephalic and atraumatic. Right Ear: Tympanic membrane, ear canal and external ear normal. Left Ear: Tympanic membrane, ear canal and external ear normal. Nose: Congestion and rhinorrhea present. No nasal tenderness. Mouth/Throat: Lips: [place]. Mouth: Mucous membranes are moist. Pharynx: Oropharynx is clear. No pharyngeal swelling, oropharyngeal exudate, posterior oropharyngeal erythema or uvula swelling. Tonsils: No tonsillar exudate or tonsillar abscesses. 1+ on the right. 1+ on the left. Eyes: Conjunctiva/sclera: Conjunctivae normal. Neck: Musculoskeletal: Normal range of motion and neck supple. Cardiovascular: Rate and Rhythm: Normal rate and regular rhythm. Heart sounds: Normal heart sounds. No murmur. No friction rub. No gallop. Pulmonary: Effort: Pulmonary effort is normal. No accessory muscle usage or respiratory distress. Breath sounds: Normal breath sounds. No decreased breath sounds, wheezing, rhonchi or rales. Musculoskeletal: Normal range of motion. Skin: General: Skin is warm and dry. Findings: No rash. Neurological: Mental Status: He is alert and oriented to person, place, and time. Psychiatric: Behavior: Behavior normal. Assessment/Plan Dorian Cruz is a 69 year old male presents with concern for cough and sob. 1. Viral illness 2. Cough 3. SOB (shortness of breath) - albuterol 90 mcg/actuation inhaler; Inhale 2 Puffs every 6 (six) hours as needed for Wheezing, Shortness of Breath or Chest tightness. Dispense: 8.5 g; Refill: 0 - XR CHEST 2 VW; Future - counseled patient about at home care: Use Advil Cold/Sinus as needed for fever and/or congestion Use Robitussin DM or Mucinex DM to help with cough Tylenol and Ibuprofen as needed for pain and fever Rest Raise head of bed Increase fluids -HYDRATION WITH CLEAR LIQUIDS Vitamin C Warm salt water gargles or CEPACOL sprays for sore throat. Breath humidified air (steam) SIPPING WARM DRINKS may help. Warm Compresses (if sinus pressure or pain). HAND HYGIENE (with alcohol gels or hand washing) Advised to take Tylenol or Ibuprofen as per label recommendation as needed for pain or fever Honey 10mL (2 teaspoons) has been shown to relieve cough at bedtime. Dark Chocolate helps with cough (xanthenes) Avoidance of cigarette smoke, alcoholic drinks, diving into deep water and air travel is useful. Irrigate your nose with normal saline moisture spray 2 or 3 times a day. You may use a spray, squeeze bottle, or nasal pot. ? Nasal Congestion (Stopped Up): Oxymetazoline HCl (Afrin, 4-Way, & more) 0.05 % nasal spray, 1 spray each nostril at bedtime. Limit to 5 nights. If use twice a day then limit to 3 days. - Advised to follow up with PCP, return to Urgent Care, or go to the nearest Emergency Department sooner for any new, worsening, persistent, or concerning symptoms. 4. Exposure to COVID-19 virus - COVID-19 (PCR MOLECULAR TESTING); Future - COVID-19 (PCR MOLECULAR TESTING) - Quarantine until your COVID results are back Criteria met - Covid testing - pending. This test can take 2-3 days to be resulted. While the test is pending...Please socially isolate your self - do not go out to stores or out in public. We will contact you once we have the results. If you are negative - continue with symptomatic treatment. (see below) Patients who have positive results will be contacted by the health department to enforce quarantine measures and for additional community contact tracing. The Infection Control Department will also undertake evaluation of exposures in our healthcare facility. If symptoms worsen - please call your Primary Care Doctor - do not go into the clinic. Call first. Educated on the following at home care: - Discussed likely viral diagnosis and treatment plan with pt. - pt advised on frequent effective handwashing - pt advised to increase fluid intake , stay hydrated and get plenty of rest. - advised to have the pt take OTC to treat symptoms. - Pt advised to administer Tylenol as per label recommendation as needed for pain or fever - Cover mouth when coughing, wear mask - Stay in your own bedroom and use a separate bathroom - Keep at least 6 feet from you and others - Avoid sharing personal household items, dishes, glasses, cups, towels -Clean high traffic/touch areas daily. These include but not limited to: doorknobs, refrigerator/cabinet handles, phones, keyboards, tablets, light switches. - AVS and Written/handout materials appropriate to problem and teaching provided. - advised to go to the nearest Emergency Department sooner for any new, worsening, persistent, or concerning symptoms - Patient verbalized understanding of all instructions - Follow-up with PCP as needed, if no improvement EDUCATION: Handouts given: Patient educated on plan of care for visit, swabbing technique,risks and benefits of test and lengthof time to receive results. Verbal consent obtained to perform test. CDC Fact Sheet for patients nCoV Diagnostic Panel dated 05/06/2019 provided. "What to do if you are sick with COVID-19" CDC information guide reviewed with the patient and handout given to patient Education given to self quarantine until results are back. Will notify patient with results. Patient states understanding and all questions answered. Plan of care, goals and medications discussed with patient. Patient voices understanding. Barriers to care: none Ability to manage care: good FOLLOW UP: Pt advised to call 911 or go to the nearest Emergency Department sooner for any worsening, persistent, or concerning symptoms ER precautions given Plan of care, desired health behaviors, goals, and medication discussed with patient. Education resources provided and reviewed with AVS. Patient/guardian/family verbalized understanding & agrees to plan of care. Urgent Care precautions and follow up : 1. Return to clinic if your symptoms should worsen or fail to improve within 72 hours. 2. The care provided in the urgent care was for acute problems only. 3. You should follow up with your primary care provider within 72 hours. 4. Fill and take all your medications as prescribed. 5. Make sure you are staying adequately hydrated. MAY FOLLOW-UP WITH A PROVIDER OF YOUR CHOICE, SUCH : 1. A PHYSICIAN OF YOUR CHOICE OR, IF YOU WISH TO FOLLOW-UP WITHIN THE [facility], MAY TRY THESE OPTIONS (CLINIC APPOINTMENTS AVAILABLE ON [id number] BASIS): 1. SCHEDULE AN APPOINTMENT ONLINE AT WWW[facility] 2. OR CALL THE [facility] AT OR 3. OR CALL YOUR [facility] PHYSICIAN'S OFFICE DIRECTLY IF YOU ARE ALREADY AN ESTABLISHED [facility] PATIENT. After hours care nurse access center available by calling [phone] 24 hours 7 days per week. Ammy MCDONALD [facility] documented in this encounter Plan of Treatment Name Type Priority Associated Diagnoses Date/Ti me XR CHEST 2 VW IMAGING STAT Cough 12/25/2019 6:15 PM CADDY/CADDIE SUPERVISOR SOB (shortness of breath) Name Type Priority Associated Diagnoses Order S chedule XR CHEST 2 VW IMAGING STAT Cough Expected: 12/25/2019, SOB (shortness of breath) Ex ligia: 12/24/2020 Health Maintenance Due Date Last Done Comments [...] filedocumented in this encounter Visit Diagnoses Diagnosis Viral illness - Primary Unspecified viral infection, in conditio ns classified elsewhere and of unspecified site Cough SOB (shortness of breath) Shortness of breath Exposure to COVID-19 virus documented in this encounter Additional Health Concerns Infection Onset Date Last Indicated Resolved Time COVID-19 Rule Out 12/25/2019 12/25/2019 documented as of this encounter Insurance Payer Benefit Plan / Subscriber ID Effective Dates Phone Addre ss Type Group MEDICARE MEDICARE PART [id number] 2017-Subhash [phone] Medicare A & B t [address] [id number] [place] [id number] documented as of this encounter
--- OUTSIDE RECORDS SUMMARY | 2020-02-02 13:26 | XMS REPORT | Continuity of Care Document ---
:1950 Author Organization [facility] t Address [address] [place] [address] Care Team Providers Name Role Phone Anne Marie WARD Primary Care Physician Provider, Urgent Care Attending Clinician Unavailable Problems Condition Condition Condition Status Onset Resolution Last Treating Co mments Source Name Details Category Date Date Treatment Clinician Date Sciatica, Sciatica, Diagnosis Active [facility] right side right side [facility] Strain of Strain of Problem Active [facility] patellar patellar [facility] tendon, tendon, l initial initial Outpati encounter encounter ent Clinics Pain, Pain, Diagnosis Active [facility] joint, joint, [facility], left knee, left [facility] Strain of Strain of Diagnosis Active [facility] left left [facility] patellar patellar [facility] tendon, tendon, l subsequent subsequent Ou tpati encounter encounter ent Clinics Allergies, Adverse Reactions, Alerts Allergy Allergy Status Severity Reaction(s) Onset Inactive Treating Comm ents Source Name Type Date Date Clinician codeine Adverse Active Info Not [facility] Reaction Available [facility] Social History Social Habit Start Date Stop Date Quantity Comments Source Sex Assigned At Nina Britton Medications Ordered Filled Start Stop Current Ordering Indication Dosage Frequency Signature Comments Components Source Medication Medication Date Date Medication? Clinician (SIG) Name Name Meloxicam Meloxicam 2019- No Renato [address] [facility] [id number] Amadou Tracy - 00:00: 00:00 [facility] spironolact spironolact Yes Renato not [facility] one one Amadou defined [facility] Furosemide Furosemide Yes Renato not [facility] defined [facility] Procedures This patient has no known procedures. Plan of Care Planned Activity Planned Date Details Comments Source Future Scheduled 2019-09-22 INFLUENZA VACCINE [place] [facility] 00:00:00 [code = INFLUENZA VACCINE] Future Scheduled 2016-01-29 65+ PNEUMOCOCCAL [facility] Test 00:00:00 VACCINE (1 of 1 - PPSV23) [code = 65+ PNEUMOCOCCAL VACCINE (1 of 1 - PPSV23)] Future Scheduled 2001 COLONOSCOPY SCREENING [place] [facility] Test 00:00:00 [code = COLONOSCOPY SCREENING] Future Scheduled 2001 SHINGLES VACCINES (#1) [place] [facility] Test 00:00:00 [code = SHINGLES VACCINES (#1)] Encounters Start End Encounter Admission Attending Care Care Encounter Source Date/Time Date/Time Type Type Clinicians Facility Department ID 2020-01-04 2020-01-04 Urgent Provider, [facility] [id number] 11:30:05 11:50:05 Care [facility] [id number] Care [place] [id number] Professio [phone] nal [address] 2019-12-25 2019-12-25 Urgent Provider, [facility] [id number] 17:09:55 18:06:32 Care [facility] [id number] Care [place] [id number] Professio [phone] nal [address] 2018-05-01 2018-05-01 [facility] [id number] 15:00:00 15:00:00 [facility] Results This patient has no known results.
--- OUTSIDE RECORDS SUMMARY | 2020-02-02 13:27 | XMS REPORT | Summary of Care ---
:1950 Author Organization [facility] Address [address] [place] [address] Care Team Providers Name Role Phone Pcp, Patient Does Not Have A Primary Care Provider +[id number] 0-0000 Reason for Visit Reason Comments Fever since yesterday felt feveris h Diarrhea >15 yesterday Encounter Details Date Type Department Care Team Description 01/04/2020 Urgent Care [facility] Family Vicky Davis PA [address] [place] [phone] Diarrhea, unspecified type (Primary Dx); [facility] Provider, [facility] Exposure to SARS-associated coronavirus; [address] [place] [address] [place] [phone] Allergies No Known Allergiesdocumented as of this encounter (statuses as of 01/04/2020) Medications Medication Sig Dispensed Refills Start Date End Date Status albuterol 90 Inhale 2 Puffs 8.5 g 0 12/25/2019 A ctive mcg/actuation every 6 (six) inhalerIndications: hours as needed Cough, SOB for Wheezing, (shortness of Shortness of breath) Breath or Chest tightness. benzonatate Take 1 capsule by 42 capsule 0 01/04/2020 01/18/20 20 Active (TESSALON PERLES) mouth 3 (three) 100 mg times daily for capsuleIndications: 14 days. Cough documented as of this encounter (statuses as of 01/04/2020) Active Problems No known active problemsdocumented as of this encounter (statuses as of 01/04/2020) Social History Tobacco Use Types Packs/Day Years Used Date Never Smoker Smokeless Tobacco: Never Used Sex Assigned at Date Recorded Not on file COVID-19 Exposure Response Date Recorded In the last month, have you been in contact with No / Unsure 01/04/2020 11:36 AM REPEAT CHIEF someone who was confirmed or suspected to have Coronavirus / COVID-19? documented as of this encounter Last Filed Vital Signs Vital Sign Reading Time Taken Comments Blood Pressure 135/72 01/04/2020 11:33 AM REPEAT CHIEF Pulse 78 01/04/2020 11:33 AM REPEAT CHIEF Temperature 37.5 C (99.5 F) 01/04/2020 11:33 AM REPEAT CHIEF Respiratory Rate 20 01/04/2020 11:33 AM REPEAT CHIEF Oxygen Saturation 96% 01/04/2020 11:33 AM REPEAT CHIEF Inhaled Oxygen Concentration - - Weight 122.5 kg (270 lb) 01/04/2020 11:33 AM REPEAT CHIEF Height 177.8 cm (5' 10") 01/04/2020 11:33 AM REPEAT CHIEF Body Mass Index 38.74 01/04/2020 11:33 AM REPEAT CHIEF documented in this encounter Patient Instructions Patient InstructionsMali Denny FNP - 01/04/2020 11:20 AM REPEAT CHIEF Patient Education Treating Diarrhea Diarrhea happens when you have loose, watery, or frequent bowel movements. It is a common problem with many causes. Most cases of diarrhea clear up on their own. But certain cases may need treatment. Be sure to see your healthcare providerif your symptoms don't get better in a few days. Getting relief Treatment of diarrhea depends on its cause. Diarrhea caused by bacterial or parasite infection is often treated with antibiotics. Diarrhea caused by other factors, such as a stomach virus, often improves with simple home treatment. The tips below may also help ease your symptoms. Drink plenty of fluids. This helps prevent too much fluid loss (dehydration). Water, clear soups,and electrolyte solutions are good choices. Don't take alcohol, coffee, tea, or milk. These can irritate your intestines andmake symptoms worse. Suck on ice chips if drinking makes you queasy. Return to your normal diet slowly. You may want to eat bland foods at first, such as rice and toast. Also, you may need to stay away from certain foods for a while, such as dairy products. These canmake symptoms worse. Ask yourhealthcare providerif there are any other foods you should stay away from. If you were prescribed antibiotics, take them as directed. Don't take anti-diarrhea medicines without asking yourproviderfirst. Call your healthcare provider Call your healthcare provider if you have any of the following: A fever of 100.4 F ( 38.0C) or higher, or as directed by your provider Chills Severe pain Worsening diarrhea or diarrhea for more than 2 days Bloody vomit or stool Signs of dehydration (dizziness, dry mouth and tongue, rapid pulse, dark urine) [employer] last reviewed this educational content on 07/22/201819990801-5102 [employer]. [address] [place] [address]. All rights reserved. This information is not intended as a substitute for professional medical care. Always follow your healthcare professional's instructions. Patient Education Preventing Common Respiratory Infections Respiratory infections such as colds and the flu (influenza) are common in winter. These infections are often caused by viruses. They may share some symptoms. But not all respiratory infections are thesame. Some make you more sick than others. You can take steps to prevent common respiratory infections. And if you get sick, you can take care of yourself to keep the infection from getting worse. What is a cold? Symptoms include runny nose, coughing and sneezing, and sore throat. Cold symptoms tend to be milder than flu symptoms. Symptoms tend to come on slowly. They last for a few days to about a week. With a cold, you can still do most of the things you normally do. What is the flu? Symptoms include fever, headache, extreme tiredness (fatigue), cough, sore throat, runny nose, and muscle aches. Children may have upset stomach and vomiting, but adults often dont. Symptoms tend to come on quickly. Some, such as fatigue and cough, can last a few weeks. With the flu, you may feel worn out and not able to do normal activities. Its most likely not the flu if an adult has vomiting or diarrhea for a day or two. This so-called stomach flu is probably a GI (gastrointestinal) infection. When the infection gets worse Without proper care, a respiratory infection can get worse. It can lead to serious complications anddeath. If you arent getting better, call your healthcare provider. Complications can include: Bronchitis (infection of the airways that leads to shortness of breath and coughing up thick yellow or green mucus) Pneumonia (infection of the lungs in which fluid and mucus settle in the lungs, making breathing difficult) Worsening of chronic conditions such as heart failure, chronic lung disease, asthma, or diabetes Severe dehydration (loss of fluids) Sinus problems Ear infections Get a flu vaccine A fluvaccine protects you from influenza (but not other colds or infections). Get a vaccine each fall, before flu season starts. This can be done at a clinic, healthcare providers office, pharmacy, select specialty hospital center, or through your workplace. Get pneumococcal vaccines Pneumonia can be a complication of influenza. There are 2 pneumococcal pneumonia vaccines that protect against many types of pneumonia. Talk with your healthcare provider about these important vaccines. Keep germs from spreading No one likes getting sick. To protect yourself and others from cold and flu germs: Wash your hands often with warm water and soap. Scrub them for 15 to 20 seconds. Use alcohol-based hand radio reporter when you dont have access to soap and water. Dont touch your eyes, nose, and mouth. This may help you keep germs out of your body. Try to stay away from people with respiratory infections. You may want to stay out of crowds during flu season (winter). Ask your healthcare provider if you should get a pneumonia vaccination. Don't smoke and don't let others smoke in your home or car How to wash your hands Use warm water and plenty of soap. Work up a good lather. Clean your whole hand, under your nails, between your fingers, and up your wrists. Wash for at least 15 to 20 seconds. Dont just wiperub well. Rinse. Let the water run down your fingertips, not up your wrists. In a public restroom, use a paper towel to turn off the faucet and open the door. [employer] last reviewed this educational content on 12/22/201819996464-2939 [employer]. All rights reserved. This information is not intended as a substitute for professional medical care. Always follow your healthcare professional's instructions. AT CHIEF documented in this encounter Progress Notes Mali Denny FNP - 01/04/2020 11:20 AM CST Cc: Chief Complaint Patient presents with Fever since yesterday felt feverish Diarrhea >15 yesterday Dorian Cruz is a 69 year old male. Patient is here with diarrhea, he was seen on 12/24 for his URI symptoms. He continues to have cough, states his cough. Covid test was negative at the time, chest X-ray unremarkable. Diarrhea Quality: Semi-solid Severity: Moderate Onset quality: Gradual Number of episodes: 10 Duration: 1 day Timing: Intermittent Progression: Improving Relieved by: Nothing Worsened by: Nothing Ineffective treatments: None tried Associated symptoms: cough Associated symptoms: no abdominal pain, no chills and no vomiting Cough: Cough characteristics: Productive Sputum characteristics: Nondescript Severity: Moderate Onset quality: Gradual Timing: Intermittent Progression: Unchanged Chronicity: New Risk factors: no recent antibiotic use, no sick contacts and no suspicious food intake Allergies Dorian has No Known Allergies. Medications Outpatient Medications Prior to Visit Medication Sig Dispense Refill albuterol 90 mcg/actuation inhaler Inhale 2 Puffs every 6 (six) hours as needed for Wheezing, Shortness of Breath or Chest tightness. 8.5 g 0 No facility-administered medications prior to visit. Histories No past medical history on file. No past surgical history on file. Social History Socioeconomic History Marital status: Single [...] file Gets together: Not on file Attends mosque service: Not on file Active member of [...] file Social History Narrative Not on file No family history on file. Review of Systems Constitutional: Negative. Negative for chills. Eyes: Negative. Respiratory: Negative for chest tightness and shortness of breath. Cardiovascular: Negative. Negative for chest pain and palpitations. Gastrointestinal: Positive for diarrhea. Negative for abdominal pain and vomiting. Neurological: Negative. Negative for syncope, weakness and light-headedness. Psychiatric/Behavioral: Negative. Endocrine: Endocrine negative Vital Signs BP 135/72 | Pulse 78 | Temp 37.5 C (99.5 F) (Oral) | Resp 20 | Ht 5' 10" (1.778 m) | Wt 270lb (122.5 kg) | SpO2 96% | BMI 38.74 kg/m Physical Exam Vitals signs and nursing note reviewed. Constitutional: General: He is not in acute distress. Appearance: He is well-developed. HENT: Head: Normocephalic. Right Ear: Hearing and external ear normal. Left Ear: External ear normal. Nose: Nose normal. Mouth/Throat: Lips: [place]. Mouth: Mucous membranes are moist. Pharynx: Oropharynx is clear. Eyes: Conjunctiva/sclera: Conjunctivae normal. Cardiovascular: Rate and Rhythm: Normal rate and regular rhythm. Heart sounds: Normal heart sounds. No murmur. No friction rub. No gallop. Pulmonary: Effort: Pulmonary effort is normal. No respiratory distress. Breath sounds: Normal breath sounds. No stridor. No wheezing or rales. Chest: Chest wall: No tenderness. Abdominal: General: Bowel sounds are normal. There is no distension. Palpations: Abdomen is soft. Tenderness: There is no abdominal tenderness. There is no right CVA tenderness or left CVA tenderness. Lymphadenopathy: Head: Right side of head: No submental, submandibular, tonsillar, preauricular or posterior auricular adenopathy. Left side of head: No submental, submandibular, tonsillar, preauricular or posterior auricular adenopathy. Cervical: No cervical adenopathy. Skin: General: Skin is warm and dry. Capillary Refill: Capillary refill takes less than 2 seconds. Neurological: Mental Status: He is alert and oriented to person, place, and time. Psychiatric: Mood and Affect: Mood normal. Assessment/Plan Diarrhea, unspecified type (primary encounter diagnosis) Comment: let it take it's course, if no improvement in 2 days, take OTC imodium or pepto as needed and as directed Plan: RTC if no improvement or worse Exposure to SARS-associated coronavirus Comment: will re-test due to new symptoms Plan: COVID-19 (MOLECULAR TESTING NUCLEIC ACID AMPLIFICATION), COVID-19 (MOLECULAR TESTING NUCLEIC ACID AMPLIFICATION) cough Comment: will ad benzonate Plan: benzonatate (TESSALON PERLES) 100 mg capsule Educated on the following at home care: -Take OTC Mucinex DM or Robitussin DM or tessalon (patient already has at home) as needed -Increase water intake -Take over the counter vitamin C/multivitamin with vitamin C -Take Tylenol as needed, avoid nsaids -REST -Wash hands often -Cover mouth when coughing -Wear mask with in the same room/car as others -Gargle with warm salt water as needed -Drink warm liquids as needed. -Throat lozenges as needed -Quarantine until your COVID results are back -Stay in your own bedroom and use a separate bathroom -Keep at least 6 feet from you and others -Avoid sharing personal household items, dishes, glasses, cups, towels -Clean high traffic/touch areas daily. These include but not limited to: doorknobs, refrigerator/cabinet handles, phones, keyboards, tablets, light switches. -Monitor your symptoms. Take your temperature 2 times daily. -Follow-up with PCP as needed, if no improvement. -Monitor your symptoms. Go to the ED if worsening symptoms: chest pain, difficulty breathing, coughing up blood, weakness, dizziness, passing out, AMS. -CDC handout provided Plan of care, desired health behaviors, goals, and medication discussed with patient. Education resources provided and reviewed with AVS. Patient/guardian/family verbalized understanding & agrees to plan of care. This visit did not involve counseling and coordination that comprised more than 50% of the visit time. If applicable, the [place] [employer] database was accessed to review any controlled substance prescription claims data. The [employer] prescription claims data in [employer] was reviewed to assess patient compliance with the medication treatment plan. AT CHIEF documented in this encounter Plan of Treatment Name Type Priority Associated Diagnoses Order S chedule COVID-19 (MOLECULAR LAB Routine Exposure to Expected : 01/04/2020, TESTING SARS-associated Expires: 021 NUCLEIC ACID coronavirus AMPLIFICATION) Health Maintenance Due Date Last Done Comments [...] filedocumented in this encounter Visit Diagnoses Diagnosis Diarrhea, unspecified type - Primary Exposure to SARS-associated coronavirus Cough documented in this encounter Additional Health Concerns Infection Onset Date Last Indicated Resolved Time COVID-19 Rule Out 01/04/2020 01/04/2020 documented as of this encounter Insurance Payer Benefit Plan / Subscriber ID Effective Dates Phone Addre ss Type Group MEDICARE MEDICARE PART [id number] 2017-Subhash [phone] [address] Medicare A & B t 2 [id number] KATIANA CARPIO [id number] MALLORY ROGERS [id number] 2020-Pres PPO ent documented as of this encounter
--- OUTSIDE RECORDS SUMMARY | 2020-02-02 13:27 | XMS REPORT | Summary of Care ---
:1950 Author Organization [facility] Address [address] [place] [address] Care Team Providers Name Role Phone Pcp, Patient Does Not Have A Primary Care Provider +1-000-00 0-0000 Reason for Visit Reason Comments Shortness of Breath 2 weeks WHEEZING 2 weeks Cough 2 weeks Encounter Details Date Type Department Care Team Description 12/25/2019 Urgent Care [facility] Ammy Calzada, SCHOOL ADMINISTRATOR [address] [facility] [address] [place], [place] [phone] Viral illness (Primary Dx); Medicine - [place] Provider, [facility] Cough; [address] [facility] SOB (short ness of breath); Drive Exposure to COVID-19 [place] [phone] Allergies No Known Allergiesdocumented as of this [...] with No / Unsure 12/25/2019 5:05 PM WAGE AND SALARY ADMINISTRATOR someone who was confirmed or suspected to have Coronavirus / COVID-19? documented as of this encounter Last Filed Vital Signs Vital Sign Reading Time Taken Comments Blood Pressure 129/71 12/25/2019 5:13 PM WAGE AND SALARY ADMINISTRATOR Pulse 73 12/25/2019 5:13 PM WAGE AND SALARY ADMINISTRATOR Temperature 37.3 C (99.1 F) 12/25/2019 5:13 PM WAGE AND SALARY ADMINISTRATOR Respiratory Rate 20 12/25/2019 5:13 PM WAGE AND SALARY ADMINISTRATOR Oxygen Saturation 94% 12/25/2019 5:15 PM WAGE AND SALARY ADMINISTRATOR Inhaled Oxygen Concentration - - Weight 124.7 kg (275 lb) 12/25/2019 5:13 PM WAGE AND SALARY ADMINISTRATOR Height 177.8 cm (5' 10") 12/25/2019 5:13 PM WAGE AND SALARY ADMINISTRATOR Body Mass Index 39.46 12/25/2019 5:13 PM WAGE AND SALARY ADMINISTRATOR documented in this encounter Patient Instructions Patient [...] IF YOU WISH TO FOLLOW-UP WITHIN THE [facility], MAY TRY THESE OPTIONS (CLINIC APPOINTMENTS AVAILABLE ON [id number] BASIS): 1. SCHEDULE AN APPOINTMENT ONLINE AT [email or web address] 2. OR CALL THE [facility] AT OR 3. OR CALL YOUR [facility] PHYSICIAN'S OFFICE DIRECTLY IF YOU ARE ALREADY AN ESTABLISHED [facility] PATIENT. After hours care nurse access center available by calling [phone] 24 hours 7 days per week. Ammy MCDONALD [facility] AND SALARY ADMINISTRATOR documented in this encounter Progress Notes Ammy [...] file Gets together: Not on file Attends nondenominational service: Not on file Active member of [...] rhinorrhea present. No nasal tenderness. Mouth/Throat: Lips: [place]. Mouth: Mucous membranes are moist. Pharynx: Oropharynx [...] place, and time. Psychiatric: Behavior: Behavior normal. Study Result XR CHEST 2 VW HISTORY: cough and sob COMPARISON: None available IMPRESSION FINDINGS/IMPRESSION: 1. Linear peripheral infiltrates in the right lower lung likely represent subsegmental atelectasis. Atypical infectious process cannot be excluded. 2. No pneumothorax or pleural effusion. The heart size is within normal limits. 3. No acute osseous abnormality. Preliminary Report Dictated by Resident: Cecil Cohen Assessment/Plan Dorian Cruz is a 69 year [...] IF YOU WISH TO FOLLOW-UP WITHIN THE [facility], MAY TRY THESE OPTIONS (CLINIC APPOINTMENTS AVAILABLE ON [id number] BASIS): 1. SCHEDULE AN APPOINTMENT ONLINE AT [email or web address] 2. OR CALL THE [facility] AT OR 3. OR CALL YOUR [facility] PHYSICIAN'S OFFICE DIRECTLY IF YOU ARE ALREADY AN ESTABLISHED [facility] PATIENT. After hours care nurse access center available by calling [phone] 24 hours 7 days per week. Ammy MCDONALD [facility] documented in this encounter Plan of Treatment Name Type Priority Associated Diagnoses Date/Ti me XR CHEST 2 VW IMAGING STAT Cough 12/25/2019 6:15 PM WAGE AND SALARY ADMINISTRATOR SOB (shortness of breath) Health Maintenance Due Date Last Done Comments [...] Addre ss Type Group MEDICARE MEDICARE PART [id number] 2017-Subhash [phone] [address] Medicare A & B t 2 [id number] KATIANA CARPIO [id number] documented as of this encounter
--- OUTSIDE RECORDS SUMMARY | 2020-02-02 13:27 | XMS REPORT | Summary of Care ---
:1950 Author Organization [facility] Address [address] [place] [address] Care Team Providers Name Role Phone Pcp, Patient Does Not Have A Primary Care Provider +1-000-00 0-0000 Reason for Visit Auth/Cert Status Reason Specialty Diagnoses / Procedures Referred By Maria Elena potts Referred To Contact Radiology [facility] [address] [place] [address] Phone: Fax: Encounter Details Date Type Department Care Team Description 12/25/2019 Hospital Encounter [facility] Maria Elena Patten FNP Arrived [place] [facility] [address] [facility] [address] [facility] [place] [address] [address] [place], [place] [address] Allergies No Known Allergiesdocumented as of this encounter (statuses as of 12/26/2019) Medications Medication Sig Dispensed Refills Start Date End Date Status albuterol 90 Inhale 2 Puffs 8.5 g 0 12/25/2019 A ctive mcg/actuation every 6 (six) hours inhalerIndications: as needed for Cough, SOB (shortness Wheezing, Shortness of breath) of Breath or Chest tightness. documented as of this encounter (statuses as of 12/26/2019) Active Problems No known active problemsdocumented as of this encounter (statuses as of 12/26/2019) Social History Tobacco Use Types Packs/Day Years Used Date Never Smoker Smokeless Tobacco: Never Used Sex Assigned at Date Recorded Not on file COVID-19 Exposure Response Date Recorded In the last month, have you been in contact with No / Unsure 12/25/2019 5:05 PM MANAGER PRIMARY CARE someone who was confirmed or suspected to have Coronavirus / COVID-19? documented as of this encounter Last Filed Vital Signs Not on filedocumented in this encounter Plan of Treatment Health Maintenance Due Date [...] (#1) 2019 documented as of this encounter Procedures Procedure Name Priority Date/Time Associated Diagnosis Comme nts XR CHEST 2 VW STAT 12/25/2019 6:15 PM Cough Results for this MANAGER PRIMARY CARE SOB (shortness of procedure are in the breath) results section . documented in this encounter Results XR CHEST 2 VW (12/25/2019 6:15 PM MANAGER PRIMARY CARE) Specimen Impressions Performed At FINDINGS/IMPRESSION: PACS/VR/DOSE 1. Linear peripheral opacities in the right lower dandre ng likely represent subsegmental atelectasis and/or attenuation artifact. Atypical infectious process cannot be excluded. 2. No pneumothorax or pleural effusion. The heart si ze is within normal limits. 3. No acute osseous abnormality. Preliminary Report Dictated by Resident: Yuko Cui MD., have reviewe d this study and agree with the above report. Narrative Performed At XR CHEST 2 VW PACS/VR/DOSE HISTORY: cough and sob COMPARISON: None available Procedure Note [facility], Radiant Results Inft User - 2019 8:56 PM MANAGER PRIMARY CARE XR CHEST 2 VW HISTORY: cough and sob COMPARISON: None available IMPRESSION FINDINGS/IMPRESSION: 1. Linear peripheral opacities in the r ight lower lung likely represent subsegmental atelectasis and/or attenuat ion artifact. Atypical infectious process cannot be excluded. 2. No pneumothorax or pleural effusion. The heart size is within normal limits. 3. No acute osseous abnormality. Preliminary Report Dictated by Resident: Yuko Cui MD., have reviewed this study and agree with the above report. Performing Organization Address City/State/Zipcode Phone Number PACS/VR/DOSE documented in this encounter Visit Diagnoses Diagnosis Cough SOB (shortness of breath) Shortness of breath documented in this encounter Additional Health Concerns Infection Onset Date Last Indicated Resolved Time COVID-19 Rule Out 12/25/2019 12/25/2019 documented as of this encounter Insurance Payer Benefit Plan / Subscriber ID Effective Dates Phone Addre ss Type Group MEDICARE MEDICARE PART [id number] 2017-Subhash [phone] [address] Medicare A & B t 2 [id number] KATIANA CARPIO [id number] documented as of this encounter
--- OUTSIDE RECORDS SUMMARY | 2020-02-02 13:27 | XMS REPORT | Summary of Care ---
:1950 Author Organization [facility] - [facility] Address [address] [place] [id number] Care Team Providers Name Role Phone Pcp, Patient Does Not Have A Primary Care Provider +[id number] Reason for Visit Reason Comments Shortness of Breath 2 weeks WHEEZING 2 weeks Cough 2 weeks Auth/Cert Status Reason Specialty Diagnoses / Procedures Referred By Maria Elena potts Referred To Contact Radiology [facility] [address] [place] [address] Phone: Fax: Encounter Details Date Type Department Care Team Description 12/25/2019 Urgent Care [facility] Family Sandor, Ammy, COSMETIC SURGEON [address] [facility] [address] [place] [address] Viral illness (Primary Dx); Medicine - [place] Provider, [facility] Cough; [address] [facility] SOB (short ness of breath); Drive Exposure to COVID-19 [place] [id number] Allergies No Known Allergiesdocumented as of this [...] with No / Unsure 12/25/2019 5:05 PM SOX ANALYST someone who was confirmed or suspected to have Coronavirus / COVID-19? documented as of this encounter Last Filed Vital Signs Vital Sign Reading Time Taken Comments Blood Pressure 129/71 12/25/2019 5:13 PM SOX ANALYST Pulse 73 12/25/2019 5:13 PM SOX ANALYST Temperature 37.3 C (99.1 F) 12/25/2019 5:13 PM SOX ANALYST Respiratory Rate 20 12/25/2019 5:13 PM SOX ANALYST Oxygen Saturation 94% 12/25/2019 5:15 PM SOX ANALYST Inhaled Oxygen Concentration - - Weight 124.7 kg (275 lb) 12/25/2019 5:13 PM SOX ANALYST Height 177.8 cm (5' 10") 12/25/2019 5:13 PM SOX ANALYST Body Mass Index 39.46 12/25/2019 5:13 PM SOX ANALYST documented in this encounter Patient Instructions Patient [...] IF YOU WISH TO FOLLOW-UP WITHIN THE [facility], MAY TRY THESE OPTIONS (CLINIC APPOINTMENTS AVAILABLE ON TWXC-XT-OGEA BASIS): 1. SCHEDULE AN APPOINTMENT ONLINE AT [facility] 2. OR CALL THE [facility] ACCESS CENTER AT OR 3. OR CALL YOUR [facility] PHYSICIAN'S OFFICE DIRECTLY IF YOU ARE ALREADY AN ESTABLISHED [facility] PATIENT. After [facility] care nurse access center available by calling [phone] 24 hours 7 days per week. Ammy [facility]CDON[facility] ANALYST documented in this encounter Progress Notes Ammy Patten FNP - 12/25/2019 5:20 PM CST Cc: Chief Complaint Patient presents with Shortness of Breath 2 weeks WHEEZING 2 weeks Cough 2 weeks Dorian Cruz is a 69 year old [...] file Gets together: Not on file Attends [employer] service: Not on file Active member of [...] rhinorrhea present. No nasal tenderness. Mouth/Throat: Lips: [place]. Mouth: Mucous membranes are moist. Pharynx: Oropharynx [...] IF YOU WISH TO FOLLOW-UP WITHIN THE [facility], MAY TRY THESE OPTIONS (CLINIC APPOINTMENTS AVAILABLE ON DCTZ-WD-HEPP BASIS): 1. SCHEDULE AN APPOINTMENT ONLINE AT [facility] 2. OR CALL THE [facility] AT OR 3. OR CALL YOUR [facility] PHYSICIAN'S OFFICE DIRECTLY IF YOU ARE ALREADY AN ESTABLISHED [facility] PATIENT. After hours care nurse access center available by calling [phone] 24 hours 7 days per week. Ammy [facility]ON[facility] documented in this encounter Plan of Treatment Health [...] 2019 documented as of this encounter Results XR CHEST 2 VW (12/25/2019 6:15 PM SOX ANALYST) Specimen Impressions Performed At FINDINGS/IMPRESSION: PACS/VR/DOSE 1. [...] Results Inft User - 2019 8:56 PM SOX ANALYST XR CHEST 2 VW HISTORY: cough and [...] documented in this encounter Visit Diagnoses Diagnosis Viral [...] Addre ss Type Group MEDICARE MEDICARE PART [id number] 2017-Subhash [phone] Medicare A & B t 2 [id number] [place] CARPIO [phone] documented as of this encounter
[2020-02-02] MEDS ORDERED: ACETAMINOPHEN 500 MG TAB ONE (14:30)
[2020-02-02 15:28] LABS: Absolute Lymphocytes (CBC) 0.7 K/uL (0.7-4.9); Basophils % 0.1 % (0-1.3); Hematocrit 42.3 % (39.6-49.0); Lymphocytes % 6.5 % (15.3-44.8); MPV 8.4 fL (7.6-11.3); RBC Red Blood Cell Count 4.12 M/uL (4.33-5.43)
[2020-02-02] MEDS ORDERED: CEFTRIAXONE/SWI 1gm 1 GM/10 ML SYR ONE (15:31)
--- NOTE | 2020-02-02 15:37 | RAD REPORT ---
[facility] 3[facility]15 pm CLINICAL HISTORY: Cough COMPARISON: 2009 FINDINGS: The lungs appear clear of acute infiltrate. The heart is normal size. Elevation of the ri ght hemidiaphragm unchanged
[2020-02-02 15:55] LABS: Albumin 2.8 g/dL (3.4-5.0); Bilirubin Direct 1.7 mg/dL (0-0.2); CKMB Creatine Kinase MB 2.2 ng/mL (0.3-3.6); Ferritin 295.7 ng/mL (26-388); Potassium 4.1 mmol/L (3.5-5.1); Protein, Total 5.8 g/dL (6.4-8.2); Troponin (Emerg Dept Use Only) 0.02 ng/mL (0.0-0.045)
[2020-02-02 15:58] LABS: Protime INR 1.27
[2020-02-02 16:00] LABS: Bilirubin Total 5.4 mg/dL (0.2-1.0)
[2020-02-02] MEDS ORDERED: NA CHLORIDE 0.9% 500 ML ONE (16:26)
[2020-02-02] MEDS ORDERED: ALBUTEROL 2.5 MG/3 ML NEB SOL ONE (17:54)
[2020-02-02] MEDS ORDERED: predniSONE 20 MG TAB ONE (17:54)
[2020-02-02] MEDS ORDERED: HYDROCODONE/CHLORPHEN 5 ML/OSYR ONE (17:54)
[2020-02-02] MEDS ORDERED: IPRATROPIUM BROM 0.5MG/2.5ML ONE (17:54)
--- NOTE | 2020-02-02 18:36 | ER ---
[facility] Name: Dorian Cruz Age: 70 yrs Sex: Male : 1950 Arrival Date: 02/02/2020 Time: 13:26 Bed 17 Private MD: Diagnosis: Acute upper respiratory infection, unspecified Presentation: 02/01 13:58 Chief complaint: Patient states: Cough \T\ shortness of breath x 5 weeks and fever for jl7 unknown amount of time. Bloating and epigastric pain x 3 weeks. Coronavirus screen: Client denies travel out of the [place] in the last 14 days. cough unrelated to allergies, diarrhea, fever, shortness of breath, Client presents with at least one sign or symptom that may indicate coronavirus-19. Standard/surgical mask placed on the client. Provider contacted for isolation considerations. The client reports previous COVID testing was negative. Date of collection: December 25, 2019. Coronavirus screen: The client reports previous COVID testing was negative. Date of collection: January 11, 2020. Ebola Screen: No symptoms or risks identified at this time. Initial Sepsis Screen: Does the patient meet any 2 criteria? RR > 20 per min. Temp <36.0*C (96.8*F)) or > 38.3*C (100.9*F). HR > 90 bpm. Yes Does the patient have a suspected source of infection? Yes: Productive cough/pneumonia. Risk Assessment: Do you want to hurt yourself or someone else? Patient reports no desire to harm self or others. Onset of symptoms was December 2019. Care prior to arrival: None. 13:58 Method Of Arrival: Wheelchair [facility] 13:58 Acuity: NGOC 2 jl7 Triage Assessment: 14:08 General: Appears in no apparent distress. uncomfortable, Behavior is calm, cooperative, jl7 appropriate for age. Pain: Complains of pain in epigastric area Pain currently is 2 out of 10 on a pain scale. Neuro: Historical: - Allergies: 14:08 No Known Allergies; jl7 - Home Meds: 14:08 Diuretic Oral tab [Active]; jl7 14:11 furosemide 20 mg Oral tab [Active]; Spironolactone Oral [Active]; jl7 - PMHx: 14:08 Cirrhosis; Hepatitis; jl7 - PSHx: 14:08 Tonsillectomy; steel plate in left knee; jl7 - Immunization history:: Adult Immunizations not up to date. - Social history:: Smoking status: Patient denies any tobacco usage or history of. Screenin:30 Abuse screen: Denies threats or abuse. Denies injuries from another. Nutritional ca1 screening: No deficits noted. Tuberculosis screening: No symptoms or risk factors identified. Fall Risk IV access (20 points). Assessment: 14:30 General: Appears in no apparent distress. comfortable, Behavior is calm, cooperative, ca1 appropriate for age, Reports fever for 1-2 days, feeling ill for 1-2 days. Pain: Denies pain. Neuro: Level of Consciousness is awake, alert, obeys commands, Oriented to person, place, time, situation. Cardiovascular: Heart tones S1 S2 present Capillary refill < 3 seconds Patient's skin is warm and dry. Rhythm is sinus tachycardia. Respiratory: Reports shortness of breath on exertion cough that is Airway is patent Respiratory effort is even, unlabored, Respiratory pattern is regular, symmetrical, Breath sounds are clear bilaterally. GI: Abdomen is round non-distended, Bowel sounds present X 4 quads. Abd is soft and non tender X 4 quads. : No signs and/or symptoms were reported regarding the genitourinary system. EENT: No signs and/or symptoms were reported regarding the EENT system. Derm: Skin is intact, is healthy with good turgor, Skin is pink, warm \T\ dry. Musculoskeletal: Circulation, motion, and sensation intact. Capillary refill < 3 seconds. 15:30 Reassessment: Patient appears in no apparent distress at this time. Patient and/or ca1 family updated on plan of care and expected duration. Pain level reassessed. Patient is alert, oriented x 3, equal unlabored respirations, skin warm/dry/pink. 16:30 Reassessment: Patient appears in no apparent distress at this time. Patient and/or ca1 family updated on plan of care and expected duration. Pain level reassessed. Patient is alert, oriented x 3, equal unlabored respirations, skin warm/dry/pink. Refused straight cath. Attempted to urinate a few times, unuccessful. 17:30 Reassessment: Patient appears in no apparent distress at this time. Patient and/or ca1 family updated on plan of care and expected duration. Pain level reassessed. Patient is alert, oriented x 3, equal unlabored respirations, skin warm/dry/pink. 18:37 Reassessment: Patient appears in no apparent distress at this time. Patient and/or ca1 family updated on plan of care and expected duration. Pain level reassessed. Patient is alert, oriented x 3, equal unlabored respirations, skin warm/dry/pink. Vital Signs: 13:58 BP 141 / 61; Pulse 102; Resp 27; Temp 102.5; Pulse Ox 92% ; Weight 136.08 kg; Height 5 jl7 ft. 8 in. (172.72 cm); Pain 2/10; 14:45 BP 96 / 51; Pulse 103; Resp 20 S; Pulse Ox 94% on R/A; ca1 15:31 BP 108 / 45; Pulse 98; Resp 22 S; Temp 99.6; Pulse Ox 95% on R/A; ca1 16:13 BP 128 / 62; Pulse 110; Resp 23 S; Pulse Ox 94% on R/A; ca1 17:30 BP 122 / 59; Pulse 101; Resp 22 S; Pulse Ox 100% on R/A; ca1 18:37 BP 105 / 64; Pulse 100; Resp 16 S; Temp 99.6(O); Pulse Ox 97% on R/A; ca1 13:58 Body Mass Index 45.61 (136.08 kg, 172.72 cm) jl7 ED Course: 13:26 Patient arrived in ED. ag5 14:04 Triage completed. jl7 14:08 Arm band placed on right wrist. jl7 14:30 Patient has correct armband on for positive identification. Placed in gown. Bed in low ca1 position. Call light in reach. Side rails up X2. residential monitor on. Pulse ox on. NIBP on. 14:31 Jaimie Dacosta, JENNIFER is Primary Nurse. ca1 14:32 Tavo Gutierrez NP is PHCP. pm1 14:32 Fredrick Bell MD is Attending Physician. pm1 14:50 Inserted saline lock: 20 gauge in right antecubital area, using aseptic technique. ca1 Blood collected. 14:50 Initial lab(s) drawn, by nv, sent to lab. First set of blood cultures drawn by nv. ca1 14:56 Flu Sent. ca1 14:56 Strep Sent. ca1 15:15 Chest Single View XRAY In Process Unspecified. EDMS 16:01 Notified Nurse Practitioner and/or Physician Auto Collision Repair Instructor of a critical lab result(s), T ca1 Laurent 5.4. 16:03 Second set of blood cultures drawn by lab staff. ca1 18:41 No provider procedures requiring assistance completed. ca1 18:46 IV discontinued, intact, bleeding controlled, No redness/swelling at site. Pressure ca1 dressing applied. Administered Medications: 14:20 Drug: Tylenol 1000 mg Route: PO; jl7 15:30 Follow up: Response: No adverse reaction; Temperature is decreased ca1 14:57 Not Given (Physician Discretion): NS 0.9% (30 ml/kg) 30 ml/kg IV at bolus once; Sepsis ca1 Protocol 16:04 Drug: Rocephin 1 grams Route: IV; Rate: calculated rate; Site: right antecubital; ca1 16:30 Follow up: Response: No adverse reaction; IV Status: Completed infusion ca1 16:36 Drug: NS 0.9% 500 ml Route: IV; Rate: bolus; Site: right antecubital; ca1 17:10 Follow up: Response: No adverse reaction; IV Status: Completed infusion; IV Intake: ca1 500ml 17:38 Drug: Tussionex Pennkinetic ER 5 ml Route: PO; ca1 18:15 Follow up: Response: No adverse reaction; Marked relief of symptoms ca1 17:39 Drug: predniSONE 60 mg Route: PO; ca1 18:10 Follow up: Response: No adverse reaction ca1 17:40 Drug: Albuterol - atroVENT (3:1) (2.5 mg - 0.5 mg) 3 ml Route: Nebulizer; ca1 18:13 Follow up: Response: No adverse reaction; Marked relief of symptoms ca1 Intake: 17:10 IV: 500ml; Total: 500ml. ca1 Outcome: 18:34 Discharge ordered by . pm1 18:46 Discharged to home ambulatory, with family. ca1 18:46 Condition: stable 18:46 Discharge instructions given to patient, family, sister Instructed on discharge instructions, follow up and referral plans. medication usage, Demonstrated understanding of instructions, follow-up care, medications, Prescriptions given X 3. 18:46 Patient left the ED. ca1 Addendum: 02/05/2020 09:35 Addendum: Culture Results: Positive blood culture. Bacteria is resistant to, has s v intermediate sensitivity, or is not tested against prescribed antibiotics. Report given to XIAO for further evaluation and then to seed technician for follow up with patient. Prescription called-in to pharmacy of choice. [facility] [place]. Signatures: Dispatcher [employer] EDMS Ava Michaels, RN RN sv Tavo Gutierrez, SOLAR SALES REPRESENTATIVE SOLAR SALES REPRESENTATIVE pm1 Oumou Kumar, RN RN jl7 Jaimie Dacosta RN RN ca1 David De León ag5 Corrections: (The following items were deleted from the chart) 02/01 15:19 15:16 Second set of blood cultures drawn by lab staff. ca1 ca1 15:30 14:56 CORONAVIRUS+MR.LAB.BRZ drawn and sent. ca1 EDMS 18:41 14:30 Respiratory: Airway is patent Respiratory effort is even, unlabored, Respiratory ca1 pattern is regular, symmetrical, Breath sounds are clear bilaterally. ca1
--- NOTE | 2020-02-02 18:36 | EDPHYS ---
Physician Documentation [facility] Name: Dorian Cruz Age: 70 yrs Sex: Male : 1950 Arrival Date: 02/02/2020 Time: 13:26 Bed 17 Private MD: ED Physician Fredrick Bell HPI: 02/01 14:38 This 70 yrs old Male presents to ER via Wheelchair with complaints of Fever, pm1 Cough. 14:38 The patient or guardian reports cough, with productive sputum. Onset: The pm1 symptoms/episode began/occurred 6 week(s) ago. Modifying factors: The symptoms are alleviated by nothing. the symptoms are aggravated by nothing. Associated signs and symptoms: Pertinent positives: shortness of breath, subjective fevers, Pertinent negatives: chest pain, ear ache, nausea, sore throat, vomiting. Severity of symptoms: in the emergency department the symptoms are worse Pain is currently a 0 / 10. Patient seen by his PCP for the same complaint at onset of his symptoms. Patient had negative chest x-ray on 12/24 and has had two negative covid tests since then. 14:38 Patient denied any abdominal pain with me. pm1 Historical: - Allergies: 14:08 No Known Allergies; jl7 - Home Meds: 14:08 Diuretic Oral tab [Active]; jl7 14:11 furosemide 20 mg Oral tab [Active]; Spironolactone Oral [Active]; jl7 - PMHx: 14:08 Cirrhosis; Hepatitis; jl7 - PSHx: 14:08 Tonsillectomy; steel plate in left knee; jl7 - Immunization history:: Adult Immunizations not up to date. - Social history:: Smoking status: Patient denies any tobacco usage or history of. ROS: 14:38 Eyes: Negative for injury, pain, redness, and discharge, ENT: Negative for injury, pm1 pain, and discharge, Neck: Negative for injury, pain, and swelling, Cardiovascular: Negative for chest pain, palpitations, and edema. 14:38 Abdomen/GI: Negative for abdominal pain, nausea, vomiting, diarrhea, and constipation, Back: Negative for injury and pain, MS/Extremity: Negative for injury and deformity, Skin: Negative for injury, rash, and discoloration. 14:38 Neuro: Negative for headache, weakness, numbness, tingling, and seizure. 14:38 Constitutional: Positive for fever, Negative for poor PO intake. 14:38 Respiratory: Positive for cough, shortness of breath. Exam: 14:38 Constitutional: This is a well developed, well nourished patient who is awake, alert, pm1 and in no acute distress. Head/Face: Normocephalic, atraumatic. 14:38 Skin: Warm, dry with normal turgor. Normal color with no rashes, no lesions, and no evidence of cellulitis. MS/ Extremity: Pulses equal, no cyanosis. Neurovascular intact. Full, normal range of motion. 14:38 Cardiovascular: Rate: tachycardic, actual rate is 103 bpm, Rhythm: regular, Pulses: no pulse deficits are appreciated, Edema: pedal edema. 14:38 Respiratory: the patient does not display signs of respiratory distress, Respirations: normal, Breath sounds: are clear throughout. 14:38 Abdomen/GI: Inspection: obese Palpation: abdomen is soft and non-tender, in all quadrants. 14:38 Neuro: Exam negative for acute changes, Orientation: is normal, Mentation: is normal, Motor: moves all fours. Vital Signs: 13:58 BP 141 / 61; Pulse 102; Resp 27; Temp 102.5; Pulse Ox 92% ; Weight 136.08 kg; Height 5 jl7 ft. 8 in. (172.72 cm); Pain 2/10; 14:45 BP 96 / 51; Pulse 103; Resp 20 S; Pulse Ox 94% on R/A; ca1 15:31 BP 108 / 45; Pulse 98; Resp 22 S; Temp 99.6; Pulse Ox 95% on R/A; ca1 16:13 BP 128 / 62; Pulse 110; Resp 23 S; Pulse Ox 94% on R/A; ca1 17:30 BP 122 / 59; Pulse 101; Resp 22 S; Pulse Ox 100% on R/A; ca1 18:37 BP 105 / 64; Pulse 100; Resp 16 S; Temp 99.6(O); Pulse Ox 97% on R/A; ca1 13:58 Body Mass Index 45.61 (136.08 kg, 172.72 cm) jl7 MDM: 14:32 Patient medically screened. ranjan 14:57 ED course: IV fluids not given due to patient with 2+ pitting edema. Breath sounds pm1 clear bilateral. Will reassess and monitor vital signs. 18:09 Data reviewed: vital signs. pm1 18:09 Counseling: I had a detailed discussion with the patient and/or guardian regarding: the pm1 historical points, exam findings, and any diagnostic results supporting the discharge/admit diagnosis, lab results, radiology results, the need for outpatient follow up, to return to the emergency department if symptoms worsen or persist or if there are any questions or concerns that arise at home. 18:09 ED course: Patient presents to the ER with complaint of cough, shortness of breath, and pm1 fever. Negative chest x-ray and WBC and procalcitonin with normal limits. Negative covid, flu, and strep. Patient improved after steroids and breathing treatment. Impression is URI/bronchitis which likely explains duration of cough. Will discharge the patient home with steroids, inhaler, and cough expectorant. Patient educated on return precautions. 02/01 14:38 Order name: Amylase, Serum; Complete Time: 16:24 pm1 02/01 14:38 Order name: Basic Metabolic Panel; Complete Time: 16:24 pm1 02/01 14:38 Order name: Blood Culture Adult (2) pm1 02/01 14:38 Order name: CBC with Diff; Complete Time: 15:35 pm1 02/01 14:38 Order name: Ckmb; Complete Time: 16:24 pm1 02/01 14:38 Order name: CPK; Complete Time: 16:24 pm1 02/01 14:38 Order name: Lactate; Complete Time: 15:43 pm1 02/01 14:38 Order name: LFT's; Complete Time: 16:24 pm1 02/01 14:38 Order name: Lipase; Complete Time: 16:24 pm1 02/01 14:38 Order name: Procalcitonin; Complete Time: 15:54 pm1 02/01 14:38 Order name: Protime (+inr); Complete Time: 16:24 pm1 02/01 14:38 Order name: Ptt, Activated; Complete Time: 16:24 pm1 02/01 14:38 Order name: Troponin (emerg Dept Use Only); Complete Time: 16:24 pm1 02/01 14:38 Order name: Chest Single View XRAY; Complete Time: 15:41 pm1 02/01 14:39 Order name: Ferritin; Complete Time: 16:24 pm1 02/01 14:39 Order name: Flu; Complete Time: 16:24 pm1 02/01 14:39 Order name: Strep; Complete Time: 15:54 pm1 02/01 14:40 Order name: CRP; Complete Time: 15:55 pm1 02/01 15:51 Order name: Throat Culture EDMS 02/01 16:22 Order name: SARS-COV-2 RT PCR; Complete Time: 16:24 EDMS 02/01 14:38 Order name: Cardiac monitoring; Complete Time: 15:33 pm1 02/01 14:38 Order name: EKG - Nurse/Tech; Complete Time: 15:33 pm1 02/01 14:38 Order name: IV Saline Lock - Large Bore; Complete Time: 14:54 pm1 02/01 14:38 Order name: Labs collected and sent; Complete Time: 14:54 pm1 02/01 14:38 Order name: O2 Per Protocol; Complete Time: 14:54 pm1 02/01 14:38 Order name: O2 Sat Monitoring; Complete Time: 14:54 pm1 12 14:39 Order name: Droplet/Contact Precautions; Complete Time: 14:56 pm1 Administered Medications: 14:20 Drug: Tylenol 1000 mg Route: PO; jl7 15:30 Follow up: Response: No adverse reaction; Temperature is decreased ca1 14:57 Not Given (Physician Discretion): NS 0.9% (30 ml/kg) 30 ml/kg IV at bolus once; Sepsis ca1 Protocol 16:04 Drug: Rocephin 1 grams Route: IV; Rate: calculated rate; Site: right antecubital; ca1 16:30 Follow up: Response: No adverse reaction; IV Status: Completed infusion ca1 16:36 Drug: NS 0.9% 500 ml Route: IV; Rate: bolus; Site: right antecubital; ca1 17:10 Follow up: Response: No adverse reaction; IV Status: Completed infusion; IV Intake: ca1 500ml 17:38 Drug: Tussionex Pennkinetic ER 5 ml Route: PO; ca1 18:15 Follow up: Response: No adverse reaction; Marked relief of symptoms ca1 17:39 Drug: predniSONE 60 mg Route: PO; ca1 18:10 Follow up: Response: No adverse reaction ca1 17:40 Drug: Albuterol - atroVENT (3:1) (2.5 mg - 0.5 mg) 3 ml Route: Nebulizer; ca1 18:13 Follow up: Response: No adverse reaction; Marked relief of symptoms ca1 Disposition: 02/02 18:05 Co-signature as Attending Physician, Fredrick Bell MD I agree with the assessment and [facility] plan of care. Disposition: 02/02/20 18:34 Discharged to Home. Impression: Acute upper respiratory infection, unspecified. - Condition is Stable. - Discharge Instructions: Antibiotic Resistance, Upper Respiratory Infection, Adult, Viral Respiratory Infection. - Prescriptions for Tessalon Perles 100 mg Oral Capsule - take 1 capsule by ORAL route every 8 hours As needed; 15 capsule. Medrol (Nakul) 4 mg Oral Tablets, Dose Pack - take 1 tablet by ORAL route as directed - follow package instructions; 1 packet. Albuterol Sulfate 90 mcg/actuation - inhale 1-2 puff by INHALATION route every 4-6 hours; 1 Inhaler. - Medication Reconciliation Form, Thank You Letter, Antibiotic Education, Prescription Opioid Use form. - Follow up: Emergency Department; When: As needed; Reason: Worsening of condition. Follow up: Private Physician; When: 2 - 3 days; Reason: Recheck today's complaints, Continuance of care, Re-evaluation by your physician. - Problem is new. - Symptoms have improved. Signatures: Dispatcher [employer] Fredrick Degroot MD MD cha Marinas, Patrick, CARTRIDGE LOADER CARTRIDGE LOADER pm1 Oumou Kumar, RN RN jl7 Jaimie Dacosta RN RN ca1 Corrections: (The following items were deleted from the chart) 02/01 15:30 14:39 CORONAVIRUS+MR.LAB.BRZ ordered. [facility] 16:37 14:38 Accucheck ordered. pm1 ca1 18:37 14:38 Urine Dipstick-Ancillary ordered. pm1 ca1 18:39 14:39 UA MICROSCOPIC+U.LAB.BRZ ordered. [facility] 18:46 18:34 02/02/2020 18:34 Discharged to Home. Impression: Acute upper respiratory ca1 infection, unspecified. Condition is Stable. Forms are Medication Reconciliation Form, Thank You Letter, Antibiotic Education, Prescription Opioid Use. Follow up: Emergency Department; When: As needed; Reason: Worsening of condition. Follow up: Private Physician; When: 2 - 3 days; Reason: Recheck today's complaints, Continuance of care, Re-evaluation by your physician. Problem is new. Symptoms have improved. pm1
[2020-02-06 18:50] VITALS: TEMP 99.6
[2020-02-06 18:54] VITALS: BP 105/64; O2SAT 97
== END 2020-02-02 18:46 | disposition home or self-care (01) ==
LOC: ER 13:24
DX: J06.9 Acute upper respiratory infection, unspecified (principal); Z20.828 Contact with and (suspected) exposure to other viral communicable diseases
CPT/HCPCS: 96365; 96361; 93005; 87040 ×2; 87070; 85025; 80048; 36415; 82150; 82550; 87205 ×3; 85610; 80076; 87081; 83605 ×2; 85730; 87077 ×2; 87186 ×2; 84484; 82553; 82728; 83690; 84145; 86140; 87804 ×2; 71045; 99285; U0003; J0696; J7040; J7512

== ENCOUNTER 2020-02-16 09:01 | Inpatient (IN) | payer OTHER ==
--- OUTSIDE RECORDS SUMMARY | 2020-02-16 09:04 | XMS REPORT | Continuity of Care Document ---
:1950 Author Organization [facility] t Address [address] [place] [address] Care Team Providers Name Role Phone Anne [...] 2019- No Renato [address] [facility] 03[facility]29 Amadou Tracy - 00:00: 00:00 [facility] 00 [facility] spironolact spironolact Yes Renato not [facility] defined [facility] Furosemide Furosemide Yes Renato not [facility] defined [facility] Procedures This patient has no known procedures. Plan of Care Planned Activity Planned Date Details Comments Source Future Scheduled 2019-09-22 INFLUENZA VACCINE [place] 00:00:00 [code = INFLUENZA VACCINE] Future Scheduled 2016-01-29 65+ PNEUMOCOCCAL [facility] 00:00:00 VACCINE (1 of 1 - PPSV23) [code = 65+ PNEUMOCOCCAL VACCINE (1 of 1 - PPSV23)] Future Scheduled 2001 COLONOSCOPY SCREENING [place] [facility] 00:00:00 [code = COLONOSCOPY SCREENING] Future Scheduled 2001 SHINGLES VACCINES (#1) [facility] 00:00:00 [code = SHINGLES VACCINES (#1)] Future Scheduled 1967 COVID-19 VACCINE (#1) [place] [facility] 00:00:00 [code = COVID-19 VACCINE (#1)] Encounters Start End Encounter Admission Attending Care Care Encounter Source Date/Time Date/Time Type Type Clinicians Facility Department ID 2020-01-04 2020-01-04 Urgent Provider, [facility] [id number] 11:30:05 11:50:05 [facility] [id number] Care [place] [id number] Professio [phone] nal [address] 2019-12-25 2019-12-25 Urgent Provider, [facility] [id number] 17:09:55 18:06:32 [facility] [id number] Care [place] [id number] Professio [phone] nal 044 [address] One 2018-05-01 2018-05-01 [facility] [id number] 15:00:00 15:00:00 t [facility] Results This patient has no known results.
--- OUTSIDE RECORDS SUMMARY | 2020-02-16 09:04 | XMS REPORT | Clinical Summary ---
:1950 Author Organization [facility] Address [address] [place] [id number] Care Team Providers Name Role Phone MD Anne Marie Primary Care Provider Allergies Not on File Medications Not on file Active Problems Not on file Social History Tobacco Use Types Packs/Day Years Used Date Never Assessed Sex Assigned at Date Recorded Not on file Last Filed Vital Signs Not on file Plan of Treatment Health Maintenance Due Date Last Done Comments COVID-19 VACCINE (#1) 1967 COLONOSCOPY SCREENING 2001 SHINGLES VACCINES (#1) 2001 65+ PNEUMOCOCCAL VACCINE (1 of 1 - PPSV23) 01/29/2016 INFLUENZA VACCINE 09/22/2019 Results Not on fileafter 02/15/2019 Advance Directives For more information, please contact: [phone] Type Date 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
[2020-02-16] MEDS ORDERED: FUROSEMIDE 40 MG/4 ML VIAL ONE ×2 (09:56→20:54)
[2020-02-16 10:16] LABS: Protime INR 1.23
[2020-02-16 10:17] LABS: Absolute Lymphocytes (CBC) 1.3 K/uL (0.7-4.9); Basophils % 0.7 % (0-1.3); Hematocrit 37.6 % (39.6-49.0); MPV 9.1 fL (7.6-11.3); RBC Red Blood Cell Count 3.56 M/uL (4.33-5.43)
[2020-02-16 10:35] LABS: Albumin 2.5 g/dL (3.4-5.0); Bilirubin Direct 1.3 mg/dL (0-0.2); Bilirubin Total 4.8 mg/dL (0.2-1.0); Magnesium 2.1 mg/dL (1.8-2.4); Potassium 4.2 mmol/L (3.5-5.1); Protein, Total 5.1 g/dL (6.4-8.2); Troponin (Emerg Dept Use Only) 0.02 ng/mL (0.0-0.045)
[2020-02-16 10:52] LABS: Blood Morphology Comment NOTED (NOT SEEN); Macrocytosis 2+; Platelet Estimate DECR; White Blood Cell Scan OK (OK)
--- NOTE | 2020-02-16 13:23 | RAD REPORT ---
EXAM DESCRIPTION: RAD - Chest Single View - 02/16/2020 10:09 am CLINICAL HISTORY: shortness of breath Chest pain. COMPARISON: Chest Single View dated 02/02/2020; CHEST SINGLE VIEW dated 01/20/2015; CHEST PA AND LAT 2 VIEW dated 08/29/2009 FINDINGS: Portable technique limits examination quality. Moderate pulmonary edema is again noted. The heart is mildly enlarged in size with a tortuous thoraci c aorta. No displaced fractures. IMPRESSION: Moderate CHF.
--- NOTE | 2020-02-16 15:56 | RAD REPORT ---
EXAM DESCRIPTION: CTAbdomen Pelvis W Contrast - 02/16/2020 2:59 pm CLINICAL HISTORY: Abdominal pain. ABDOMINAL SWELLING, SHORTNESS OF BREATH COMPARISON: No comparisons TECHNIQUE: Biphasic CT imaging of the abdomen and pelvis was performed with 100 ml non-ionic IV cont rast. All CT scans are performed using dose optimization technique as appropriate and may include automated exposure control or mA/KV adjustment according to patient size. FINDINGS: The lung bases are clear. The liver is small in size and nodular in contour compatible with cirrhosis. Spleen is normal sized. The pancreas, adrenal glands and kidneys are all normal limits. Small stones may be present in the ga llbladder. Mild ascites is present. There is a significant anasarca pattern noted. No bowel obstruction evident. No free air evident. The appendix is not identified as a discrete structure, however, no secondary f indings of appendicitis are identified. No evidence of significant lymphadenopathy. No lytic or blastic bone lesion. IMPRESSION: Advanced liver cirrhosis. Significant anasarca. Mild ascites. Suspected cholelithiasis.
--- NOTE | 2020-02-16 20:49 | ER ---
Nurse's Notes [facility] Name: Dorian Cruz Age: 70 yrs Sex: Male : 1950 Arrival Date: 02/16/2020 Time: 09:04 Bed 17 Private MD: Jan Kenney Diagnosis: Edema, unspecified Presentation: 02/15 09:13 Chief complaint: Patient states: "I am all swollen, my belly is swollen, my legs are aa5 swollen and my liver doctor said to come to the ER". Pt reports mild SOB. Reports productive cough for weeks, pt reports he had 3 negative COVID-19 test. 09:13 Ebola Screen: Patient negative for fever greater than or equal to 101.5 degrees aa5 Fahrenheit, and additional compatible Ebola Virus Disease symptoms. Initial Sepsis Screen: Does the patient meet any 2 criteria? RR > 20 per min. Does the patient have a suspected source of infection? Yes: Productive cough/pneumonia. Risk Assessment: Do you want to hurt yourself or someone else? Patient reports no desire to harm self or others. Onset of symptoms was January 2020. 09:13 Acuity: NGOC 2 aa5 09:13 Method Of Arrival: Ambulatory aa5 09:13 Coronavirus screen: cough unrelated to allergies, The client reports previous COVID aa5 testing was negative. Triage Assessment: 09:21 General: Appears in no apparent distress. uncomfortable, Behavior is cooperative, bp appropriate for age, anxious. Pain: Complains of pain in right foot and left foot. EENT: No deficits noted. Neuro: No deficits noted. Cardiovascular: Rhythm is sinus rhythm. Respiratory: Airway is patent Respiratory effort is even, unlabored, Breath sounds are coarse bilaterally. GI: Abdomen is round. : No signs and/or symptoms were reported regarding the genitourinary system. Derm: No deficits noted. Musculoskeletal: Swelling present in abdomen, right leg and left leg. Historical: - Allergies: : No Known Allergies; aa5 - Home Meds: : furosemide 20 mg Oral tab [Active]; Spironolactone Oral [Active]; aa5 - PMHx: Cirrhosis; Hepatitis; aa5 - PSHx: : Tonsillectomy; steel plate in left knee; aa5 - Immunization history:: Adult Immunizations up to date. - Social history:: Smoking status: Patient denies any tobacco usage or history of. Screenin:23 Abuse screen: Denies threats or abuse. Denies injuries from another. Nutritional bp screening: No deficits noted. Tuberculosis screening: No symptoms or risk factors identified. Fall Risk None identified. Assessment: 09:22 General: SEE TRIAGE NOTE. bp 10:21 Reassessment: No changes from previously documented assessment. Patient and/or family bp updated on plan of care and expected duration. Pain level reassessed. Patient is alert, oriented x 3, equal unlabored respirations, skin warm/dry/pink. 11:30 Reassessment: No changes from previously documented assessment. Patient and/or family bp updated on plan of care and expected duration. Pain level reassessed. Patient is alert, oriented x 3, equal unlabored respirations, skin warm/dry/pink. PT DIURESING AFTER LASIX IVP. 12:27 Reassessment: No changes from previously documented assessment. Patient and/or family bp updated on plan of care and expected duration. Pain level reassessed. Patient is alert, oriented x 3, equal unlabored respirations, skin warm/dry/pink. PROVIDER AT B/S FOR RE-EVAL AND DISPO. 14:00 Reassessment: No changes from previously documented assessment. Patient and/or family bp updated on plan of care and expected duration. Pain level reassessed. Patient is alert, oriented x 3, equal unlabored respirations, skin warm/dry/pink. PT TO CT. 15:00 Reassessment: No changes from previously documented assessment. Patient and/or family bp updated on plan of care and expected duration. Pain level reassessed. Patient is alert, oriented x 3, equal unlabored respirations, skin warm/dry/pink. PT RETURNED FROM LATEST CT. 16:00 Reassessment: No changes from previously documented assessment. Patient and/or family bp updated on plan of care and expected duration. Pain level reassessed. Patient is alert, oriented x 3, equal unlabored respirations, skin warm/dry/pink. ALL CURRENT ORDERS COMPLETED, DISPO PENDING. 18:00 Reassessment: No changes from previously documented assessment. Patient and/or family bp updated on plan of care and expected duration. Pain level reassessed. Patient is alert, oriented x 3, equal unlabored respirations, skin warm/dry/pink. LAB DRAWN BY PHLEBOTOMY. PT OOB TO B/S COMMODE. 19:00 General: Appears in no apparent distress. pt states he needs urinal. one provided at ll2 bedside. Behavior is calm, cooperative. Vital Signs: 09:13 BP 132 / 77; Pulse 86; Resp 24 S; Temp 98.1(O); Pulse Ox 90% on R/A; aa5 10:21 BP 122 / 64; Pulse 76; Resp 15; Pulse Ox 95% on R/A; bp 11:00 BP 102 / 68; Pulse 82; Resp 21; Pulse Ox 94% ; bp 12:00 BP 106 / 61; Pulse 76; Resp 16; Pulse Ox 94% ; bp 13:00 BP 110 / 54; Pulse 75; Resp 19; Pulse Ox 97% ; bp 14:00 BP 131 / 79; Pulse 87; Resp 17; Pulse Ox 94% ; bp 15:00 BP 126 / 70; Pulse 77; Resp 16; Pulse Ox 95% ; bp 16:00 BP 117 / 66; Pulse 81; Resp 15; Pulse Ox 96% ; bp 17:00 BP 122 / 100; Pulse 75; Resp 20; Pulse Ox 94% ; bp 18:00 BP 136 / 62; Pulse 77; Resp 18; Pulse Ox 96% ; bp ED Course: 09:04 Patient arrived in ED. ag5 09:05 Jan Kenney MD is Private Physician. ag5 09:13 [facility] jmm 09:18 Madi Martin, JENNIFER is Primary Nurse. bp 09:18 Fredrick Bell MD is Attending Physician. ranjan 09:22 Arm band placed on. bp 09:23 Patient has correct armband on for positive identification. Bed in low position. Call bp light in reach. Side rails up X2. 09:24 Triage completed. aa5 09:50 Inserted saline lock: 20 gauge in right antecubital area, using aseptic technique. bp Blood collected. 10:10 XRAY Chest (1 view) In Process Unspecified. EDMS 15:00 CT Abd/Pelvis - IV Contrast Only In Process Unspecified. EDMS 16:16 Transfer center at [facility] contacted to initiate transfer with no answer. em1 16:23 Transfer center at [facility] contacted to initiate transfer, diabetes education coordinator spoke em1 with J[facility] and confirmed bed availability. They are now in the process of coordinating conference with the receiving provider. 18:00 Transfer center at [facility] contacted to inquire on the transfer status with no answer.em1 19:00 Contacted transfer center at [facility] and followed up on the transfer status. Was tt3 informed that they were still waiting to receive a call back from a physician. 20:48 Fran Galvan MD is Hospitalizing Provider. jon Administered Medications: 09:50 Drug: Lasix 40 mg Route: IVP; Site: right antecubital; bp 12:28 Follow up: Response: No adverse reaction bp 21:24 Drug: Lasix 40 mg Route: IVP; Site: left antecubital; ll2 22:15 Follow up: Response: No adverse reaction ll2 22:15 Drug: Lasix 20 mg Route: IVP; Site: left antecubital; ll2 Outcome: 20:48 Decision to Hospitalize by Provider. jon 02/16 10:28 Patient left the ED. iw Signatures: Dispatcher [employer] EDMS Fredrick Bell MD MD cha Mickail, Joel, PA PA Patricia Currie, RN RN Thom Lawrence em1 Laura Warren, RN RN aa5 Madi Martin RN RN David Morales ag5 Lindy Mazariegos, RN RN ll2 Ray Bell tt3 Corrections: (The following items were deleted from the chart) 02/15 16:10 16:00 Reassessment: ALL CURRENT ORDERS COMPLETED, DISPO PENDING bp bp
--- NOTE | 2020-02-16 20:50 | EDPHYS ---
Physician Documentation [facility] Name: Dorian Cruz Age: 70 yrs Sex: Male : 1950 Arrival Date: 02/16/2020 Time: 09:04 Bed 17 Private MD: Jan Kenney ED Physician Fredrick Bell HPI: 02/15 09:32 This 70 yrs old Male presents to ER via Ambulatory with complaints of jmm Abdominal Swelling, Leg Swelling, Feet Swelling. 09:32 The patient has shortness of breath at rest. Onset: The symptoms/episode began/occurred jmm gradually. Duration: The symptoms are continuous. The patient's shortness of breath has no apparent modifying factors. This is a 70 year old male with a history of cirrhosis that presents to the ED with complains of shortness of breath, leg swelling beginning approx 3 month ago. Patient states he did not take his lasix this summer. Began taking it again this fall. Complains of increased weight gain as well. . Historical: - Allergies: 09:26 No Known Allergies; aa5 - Home Meds: 09:26 furosemide 20 mg Oral tab [Active]; Spironolactone Oral [Active]; aa5 - PMHx: 09:26 Cirrhosis; Hepatitis; aa5 - PSHx: 09:26 Tonsillectomy; steel plate in left knee; aa5 - Immunization history:: Adult Immunizations up to date. - Social history:: Smoking status: Patient denies any tobacco usage or history of. ROS: 09:32 Constitutional: Negative for fever, chills, and weight loss. jmm 09:32 Respiratory: Positive for shortness of breath. 09:32 All other systems are negative. Exam: 09:32 Constitutional: This is a well developed, well nourished patient who is awake, alert, jmm and in no acute distress. Head/Face: atraumatic. Eyes: EOMI, no conjunctival erythema appreciated ENT: Moist Mucus Membranes Neck: Trachea midline, Supple Chest/axilla: Normal chest wall appearance and motion. Cardiovascular: Regular rate and rhythm. No edema appreciated Respiratory: Normal respirations, no respiratory distress appreciated 09:32 Abdomen/GI: Inspection: distension, Bowel sounds: normal. 09:32 Musculoskeletal/extremity: swelling noted to the legs bilaterally. 09:32 Neuro: Orientation: is normal, Mentation: is normal, Memory: is normal. 09:32 Psych: Behavior/mood is pleasant, cooperative. Vital Signs: 09:13 BP 132 / 77; Pulse 86; Resp 24 S; Temp 98.1(O); Pulse Ox 90% on R/A; aa5 10:21 BP 122 / 64; Pulse 76; Resp 15; Pulse Ox 95% on R/A; bp 11:00 BP 102 / 68; Pulse 82; Resp 21; Pulse Ox 94% ; bp 12:00 BP 106 / 61; Pulse 76; Resp 16; Pulse Ox 94% ; bp 13:00 BP 110 / 54; Pulse 75; Resp 19; Pulse Ox 97% ; bp 14:00 BP 131 / 79; Pulse 87; Resp 17; Pulse Ox 94% ; bp 15:00 BP 126 / 70; Pulse 77; Resp 16; Pulse Ox 95% ; bp 16:00 BP 117 / 66; Pulse 81; Resp 15; Pulse Ox 96% ; bp 17:00 BP 122 / 100; Pulse 75; Resp 20; Pulse Ox 94% ; bp 18:00 BP 136 / 62; Pulse 77; Resp 18; Pulse Ox 96% ; bp MDM: 09:18 Patient medically screened. ranjan 20:45 Data reviewed: vital signs, nurses notes. Counseling: I had a detailed discussion with verónica the patient and/or guardian regarding: the historical points, exam findings, and any diagnostic results supporting the discharge/admit diagnosis, lab results, the need for further work-up and treatment in the hospital. ED course: Patient developed scrotal swelling during ER evaluation. Due to the anasarca and scrotal edema will admit for IV diuretics. I attempted to contact [facility] but unsuccessful in getting in contact with the patient's lines tender. I did initially discuss the patient's case with Dr. Galvan whom advised to attempt to transfer for continuity of care but otherwise would accept the patient to his service for admission. . 02/15 09:25 Order name: Basic Metabolic Panel; Complete Time: 10:57 [facility] 02/15 09:25 Order name: CBC with Diff; Complete Time: 10:57 [facility] 02/15 09:25 Order name: LFT's; Complete Time: 10:57 [facility] 02/15 09:25 Order name: Magnesium; Complete Time: 10:57 [facility] 02/15 09:25 Order name: NT PRO-BNP; Complete Time: 10:57 [facility] 02/15 09:25 Order name: PT-INR; Complete Time: 10:57 [facility] 02/15 09:25 Order name: Troponin (emerg Dept Use Only); Complete Time: 10:57 [facility] 02/15 09:25 Order name: XRAY Chest (1 view); Complete Time: 13:27 [facility] 02/15 10:37 Order name: CBC Smear Scan; Complete Time: 10:57 [facility] 02/15 16:25 Order name: AMMONIA; Complete Time: 18:00 [facility] 02/15 19:36 Order name: SARS-COV-2 RT PCR; Complete Time: 19:41 [facility] 02/16 04:42 Order name: CBC with Automated Diff [facility] 02/16 05:05 Order name: Comprehensive Metabolic Panel [facility] 02/15 09:25 Order name: EKG; Complete Time: 09:26 [facility] 02/15 09:25 Order name: Cardiac monitoring; Complete Time: 10:21 [facility] 02/15 09:25 Order name: EKG - Nurse/Tech; Complete Time: 10:21 [facility] 02/15 09:25 Order name: IV Saline Lock; Complete Time: 10:02 [facility] 02/15 09:25 Order name: Labs collected and sent; Complete Time: 10:02 [facility] 02/15 09:25 Order name: O2 Per Protocol; Complete Time: 10:02 [facility] 02/15 09:25 Order name: O2 Sat Monitoring; Complete Time: 10:01 [facility] 02/15 13:55 Order name: CT Abd/Pelvis - IV Contrast Only; Complete Time: 15:57 [facility] 02/15 20:32 Order name: Mckay; Complete Time: 21:15 [facility] Administered Medications: 09:50 Drug: Lasix 40 mg Route: IVP; Site: right antecubital; bp 12:28 Follow up: Response: No adverse reaction bp 21:24 Drug: Lasix 40 mg Route: IVP; Site: left antecubital; ll2 22:15 Follow up: Response: No adverse reaction ll2 22:15 Drug: Lasix 20 mg Route: IVP; Site: left antecubital; ll2 Disposition: 02/16 17:05 Co-signature as Attending Physician, Fredrick Bell MD I agree with the assessment and ranjan plan of care. Disposition: 02/16/20 20:48 Hospitalization ordered by Fran Galvan for Observation. Preliminary diagnosis is Edema, unspecified. - Bed requested for Telemetry/MedSurg (observation). - Status is Observation. iw - Condition is Stable. - Problem is new. - Symptoms are unchanged. Signatures: Dispatcher [employer] EDRI Fredrick Bell MD MD cha Mickail, Joel, PA PA [facility] Patricia Watts, RN RN iw Brett, Thom em1 Laura Warren RN RN aa5 Amol Márquez, AGRICULTURAL EQUIPMENT SALESPERSON-C AGRICULTURAL EQUIPMENT SALESPERSON-Cla1 Lien Denson, RN RN cg Madi Martin, RN RN Lindy Addison RN RN ll2 Corrections: (The following items were deleted from the chart) 02/15 18:41 16:13 CORONAVIRUS+MR.LAB.BRZ ordered. [facility] 22:14 20:48 Hospitalization Ordered by Fran Galvan MD for Observation. Preliminary cg diagnosis is Edema, unspecified. Bed requested for Telemetry/MedSurg (observation). Status is Observation. Condition is Stable. Problem is new. Symptoms are unchanged. [facility] 02/16 09:32 02/15 22:14 02/16/2020 20:48 Hospitalization Ordered by Fran Galvan MD for em1 Observation. Preliminary diagnosis is Edema, unspecified. Bed requested for [facility] ER HOLD. Status is Observation. Condition is Stable. Problem is new. Symptoms are unchanged. 02/16 10:28 09:32 02/16/2020 20:48 Hospitalization Ordered by Fran Galvan MD for Observation. iw Preliminary diagnosis is Edema, unspecified. Bed requested for Telemetry/MedSurg (observation). Status is Observation. Condition is Stable. Problem is new. Symptoms are unchanged. em1
[2020-02-16] MEDS ORDERED: FUROSEMIDE 20 MG/ 2ML VIAL ONE (21:58)
--- NOTE | 2020-02-16 23:56 | P.HP ---
Certification for Inpatient Patient admitted to: Observation With expected LOS: <2 Midnights Patient will require the following post-hospital care: None Practitioner: I am a practitioner with admitting privileges, knowledge of patient current condition, hospital course, and medical plan of care. Services: Services provided to patient in accordance with Admission requirements found in Title 42 Section 412.3 of the Code of Federal Regulations Patient History Date of Service: 02/16/20 Reason for admission: Cirrhosis, volume overload History of Present Illness: 70-year-old male with history of cirrhosis secondary to hepatitis presents emergency department for swelling of the lower extremities. Patient sees hepatology at [facility] in takes spironolactone and Lasix. Patient noticed increased swelling to lower extremities over the last couple of weeks. Patient was evaluated in the emergency department, labs relatively unremarkable aside from liver function which is to be expected. ED provider attempted to reach out to [facility] hepatology department but was unable to reach anybody. Initially plan to discharge patient on increased dose of Lasix but during his emergency department stay the patient developed significant scrotal edema. The decision was made to place a Mckay catheter to prevent any urinary retention. Mckay catheter in place, patient was administered 60 mg of Lasix in the emergency department, is diuresing well. ED provider wishes to admit patient for further evaluation and management. When I saw the patient in the ER he was awake, alert, oriented x3. Patient's only complaint is swelling of the lower extremities and scrotum. Will diurese patient overnight, likely discharge tomorrow. Patient made aware that we do not have hepatology or GI operations officer in that this admission is primarily for diuresis. Patient is amenable to this. Allergies Hydrocodone-Acetaminophen Adverse Reaction (Uncoded 09/12/18 11:19) CONFUSION Home Medications: Furosemide [Lasix*] 20 mg PO DAILY 07/21/18 Meloxicam 15 mg PO DAILY 07/21/18 Spironolactone [Aldactone*] 50 mg PO DAILY 07/21/18 - Past Medical/Surgical History -: Cirrhosis secondary to hepatitis -: Left knee surgery Psychosocial/ Personal History: Patient lives at home alone - Family History Family History: Reviewed- Non-Contributory - Social History Smoking Status: Never smoker Alcohol use: No CD- Drugs: No Caffeine use: No Place of Residence: Home Review of Systems 10-point ROS is otherwise unremarkable Cardiovascular: Edema Physical Examination - Physical Exam General: Alert, In no apparent distress HEENT: Atraumatic, PERRLA, Mucous membr. moist/pink Neck: Supple, 2+ carotid pulse no bruit, No LAD Respiratory: Clear to auscultation bilaterally, Normal air movement Cardiovascular: Regular rate/rhythm, Normal S1 S2, Edema (1+ pitting edema bilateral lower extremities, swelling to the scrotum noted.) Gastrointestinal: Normal bowel sounds, No tenderness Musculoskeletal: No tenderness Integumentary: No rashes Neurological: Normal speech, Normal strength at 5/5 x4 extr, Normal tone - Studies Laboratory Data (last 24 hrs) 02/16/20 09:50: PT 14.4 H, INR 1.23 02/16/20 09:50: WBC 8.6 D, Hgb 12.6 L, Hct 37.6 L, Plt Count 84 L 02/16/20 09:50: Sodium 141, Potassium 4.2, BUN 19 H, Creatinine 1.28, Glucose 118 H, Magnesium 2.1, Total Bilirubin 4.8 H, AST 68 H, ALT 68, Alkaline Phosphatase 114 Assessment and Plan - Plan Assessment Volume overload secondary to cirrhosis of the liver Plan Volume overload secondary to cirrhosis of the liver: Mckay catheter placed due to increased scrotal swell, continue with IV diuresis overnight. From a hepatology/gastroenterology standpoint patient need to follow up with his protection mgr. Patient aware of this, states usually his protection mgr tells him to call their office on Tuesday if he is in the ER on the weekend. Patient without any hypoxia at this time, continue with IV diuresis. DVT prophylaxis with SCDs due to patient's low platelet count. Discharge Plan: Home Plan to discharge in: 24 Hours - Advance Directives Does patient have a Living Will: No Does patient have a Durable POA for Healthcare: No - Code Status/Comfort Care Code Status Assessed: Yes (Full code) Critical Care: No Time Spent Managing Pts Care (In Minutes): 55
[2020-02-17 03:45] VITALS: BMI 46.0
[2020-02-17] MEDS ORDERED: MORPHINE 2 MG/ML SYR IV PRN (03:45)
[2020-02-17 04:36] LABS: Absolute Lymphocytes (CBC) 1.1 K/uL (0.7-4.9); Basophils % 0.4 % (0-1.3); Hematocrit 37.2 % (39.6-49.0); Lymphocytes % 10.6 % (15.3-44.8); MPV 9.2 fL (7.6-11.3); RBC Red Blood Cell Count 3.54 M/uL (4.33-5.43)
[2020-02-17 04:53] LABS: Albumin 2.4 g/dL (3.4-5.0); Potassium 4.9 mmol/L (3.5-5.1); Protein, Total 4.9 g/dL (6.4-8.2)
[2020-02-17 05:05] LABS: Bilirubin Total 6.2 mg/dL (0.2-1.0)
[2020-02-17] MEDS: SPIRONOLACTONE 25 MG TABLET PO SCH (09:00)
[2020-02-17] MEDS: FUROSEMIDE 40 MG/4 ML VIAL IV SCH ×2 (09:00→16:34)
--- NOTE | 2020-02-17 09:38 | P.PN ---
Subjective Date of Service: 02/17/20 Chief Complaint: Cirrhosis, volume overload Subjective: Improving (Patient is feeling better been complaining of progressive lower extremity edema and abdominal distention has a history of cirrhosis of the liver) Review of Systems General: Weakness Respiratory: Shortness of Breath Cardiovascular: Edema Physical Examination - Vital Signs Temperature: 98.6 F Blood Pressure: 158/92 Pulse: 91 Respirations: 27 Pulse Ox (%): 94 - Physical Exam General: Alert, In no apparent distress, Oriented x3 Neck: Supple Respiratory: Clear to auscultation bilaterally Cardiovascular: Edema (4+ edema) Gastrointestinal: Normal bowel sounds, Soft and benign, No rebound, No guarding - Studies Laboratory Data (last 24 hrs) 02/16/20 09:50: PT 14.4 H, INR 1.23 02/16/20 09:50: WBC 8.6 D, Hgb 12.6 L, Hct 37.6 L, Plt Count 84 L 02/16/20 09:50: Sodium 141, Potassium 4.2, BUN 19 H, Creatinine 1.28, Glucose 118 H, Magnesium 2.1, Total Bilirubin 4.8 H, AST 68 H, ALT 68, Alkaline Phosphatase 114 Assessment & Plan - Problems (Diagnosis) (1) Cirrhosis of liver Current Visit: Yes Status: Acute Plan: Patient is 70 years of age presented with decompensated cirrhosis of the liver his current worse in the last few days continue with present medications vital s igns reviewed abdomen is not distended Qualifiers: Ascites presence: with ascites
[2020-02-17] MEDS ORDERED: FUROSEMIDE 40 MG/4 ML VIAL ONE (10:13)
[2020-02-18] MEDS: SPIRONOLACTONE 25 MG TABLET PO SCH (09:59)
[2020-02-18] MEDS: FUROSEMIDE 40 MG/4 ML VIAL IV SCH (09:59)
[2020-02-18] MEDS: ALBUMIN HUMAN 25% 12.5 GM, FUROSEMIDE 100 MG in NA CHLORIDE 0.9% 40 ML IV SCH ×3 (14:10→23:20)
[2020-02-19] MEDS: ALBUMIN HUMAN 25% 12.5 GM, FUROSEMIDE 100 MG in NA CHLORIDE 0.9% 40 ML IV SCH ×4 (04:18→20:43)
[2020-02-19] MEDS: SPIRONOLACTONE 25 MG TABLET PO SCH (09:22)
[2020-02-19 11:00] LABS: Basophils % 0.7 % (0-1.3); Hematocrit 31.9 % (39.6-49.0); Lymphocytes % 12.3 % (15.3-44.8); MPV 8.8 fL (7.6-11.3); RBC Red Blood Cell Count 3.06 M/uL (4.33-5.43)
[2020-02-19 11:24] LABS: Albumin 2.6 g/dL (3.4-5.0); Bilirubin Total 4.4 mg/dL (0.2-1.0); Magnesium 2.1 mg/dL (1.8-2.4); Phosphorus 3.1 mg/dL (2.5-4.9); Potassium 3.7 mmol/L (3.5-5.1); Protein, Total 4.8 g/dL (6.4-8.2)
[2020-02-19] MEDS ORDERED: INFLUENZA VACCINE (for 3y+) 0.5 ML DOSE IMVAC ONE (12:00)
[2020-02-19] MEDS ORDERED: LACTULOSE 20 GM/30 ML UCUP PO ONE (13:40)
[2020-02-19] MEDS ORDERED: POTASSIUM 25 MEQ EFFERV TAB PO ONE (13:40)
[2020-02-19 15:14] LABS: Urine Appearance CLEAR; Urine Bilirubin NEGATIVE (NEG); Urine Blood 3+ (NEG); Urine Color YELLOW; Urine Glucose NEGATIVE (NEG); Urine Protein NEGATIVE (NEG)
[2020-02-19 15:19] LABS: Urine Microscopic Reflex ORDER UMIC
[2020-02-19 15:28] LABS: Urine RBC 20-50 /HPF (NONE SEEN)
[2020-02-19 15:29] LABS: Urine Bacteria <20 /HPF (NONE SEEN); Urine Mucus 2+ /HPF (NONE SEEN)
[2020-02-19] MEDS: LACTULOSE 20 GM/30 ML UCUP PO SCH (20:44)
[2020-02-20] MEDS: SPIRONOLACTONE 25 MG TABLET PO SCH (08:47)
[2020-02-20] MEDS: LACTULOSE 20 GM/30 ML UCUP PO SCH ×2 (08:47→20:25)
--- NOTE | 2020-02-20 09:42 | P.PN ---
Subjective Date of Service: 02/18/20 Patient still with significant anasarca diffusely. Patient will be diuresed with an albumin and Lasix drip. Secondary to hypoalbuminemia out from cirrhosis. Patient with a history of alcoholic liver cirrhosis. Review of Systems 10-point ROS is otherwise unremarkable Physical Examination - Vital Signs Temperature: 98.7 F Blood Pressure: 113/53 Pulse: 88 Respirations: 19 Pulse Ox (%): 91 - Physical Exam General: Alert, In no apparent distress, Oriented x3 HEENT: Atraumatic, PERRLA, EOMI Neck: Supple, JVD not distended Respiratory: Diminished, Crackles/rales, Expiratory wheezes Cardiovascular: Regular rate/rhythm, Normal S1 S2, Systolic murmur Gastrointestinal: Normal bowel sounds, Soft and benign, Non-distended, No tenderness Musculoskeletal: No clubbing, No tenderness, Swelling Integumentary: No rashes Neurological: Sensation intact, Cranial nerves 3-12 intact - Studies Medications List Reviewed: Yes Assessment & Plan - Problems (Diagnosis) (1) Alcoholic cirrhosis of liver Current Visit: Yes Status: Acute (2) Anasarca Current Visit: Yes Status: Acute (3) Hypoalbuminemia Current Visit: Yes Status: Acute (4) Scrotal edema Current Visit: Yes Status: Acute - Plan Plan: 1. Continue with albumin/Lasix drip 2. Monitor volume status closely 3. Out of bed and ambulate 4. Check ammonia level 5. Daily weight 6. Strict input and output 7. Monitor LFTs and renal function 8. GI and DVT prophylax is Discharge Plan: Home Plan to discharge in: Greater than 2 days - Advance Directives Does patient have a Living Will: No Does patient have a Durable POA for Healthcare: No - Code Status/Comfort Care Code Status Assessed: Yes Code Status: Full Code Critical Care: No Time Spent Managing PTS Care (In Minutes): 35
--- NOTE | 2020-02-20 09:45 | P.PN ---
Subjective Date of Service: 02/19/20 Patient feeling better. Can tell the swelling has gone down. Had 3 L of urine output. Scrotal edema has improved. Ammonia level is elevated. Started lactulose. Started physical therapy. Arranging for discharge home soon with physical therapy and nursing care at discharge. He will need to follow with the GI doctor or maybe even a general magistrate. Bilirubin has been increased. Review of Systems 10-point ROS is otherwise unremarkable Physical Examination - Vital Signs Temperature: 98.7 F Blood Pressure: 113/53 Pulse: 88 Respirations: 19 Pulse Ox (%): 91 - Physical Exam General: Alert, In no apparent distress, Oriented x3 Respiratory: Crackles/rales Cardiovascular: Regular rate/rhythm, Normal S1 S2, Systolic murmur Gastrointestinal: Normal bowel sounds, Soft and benign, Non-distended, No te nderness Musculoskeletal: No clubbing, No tenderness, Swelling Neurological: Normal strength at 5/5 x4 extr, Sensation intact, Cranial nerves 3-12 intact - Studies Medications List Reviewed: Yes Assessment & Plan - Problems (Diagnosis) (1) Alcoholic cirrhosis of liver Current Visit: Yes Status: Acute (2) Anasarca Current Visit: Yes Status: Acute (3) Hypoalbuminemia Current Visit: Yes Status: Acute (4) Scrotal edema Current Visit: Yes Status: Acute - Plan Plan: Continue with plan of care as mentioned below 1. Will discontinue albumin/Lasix drip today 2. Monitor volume status closely 3. Out of bed and ambulate; appreciate physical therapy assistance 4. Ammonia level elevated and started lactulose 5. Daily weight 6. Strict input and output 7. Monitor LFTs and renal function 8. GI and DVT prophylax is Discharge Plan: Home Plan to discharge in: Greater than 2 days - Advance Directives Does patient have a Living Will: No Does patient have a Durable POA for Healthcare: No - Code Status/Comfort Care Code Status: Full Code Critical Care: No Time Spent Managing PTS Care (In Minutes): 35
[2020-02-20 11:06] LABS: Basophils % 0.3 % (0-1.3); Hematocrit 30.8 % (39.6-49.0); Lymphocytes % 9.3 % (15.3-44.8); MPV 9.3 fL (7.6-11.3); RBC Red Blood Cell Count 2.96 M/uL (4.33-5.43)
[2020-02-20 11:19] LABS: Albumin 2.7 g/dL (3.4-5.0); Bilirubin Total 4.3 mg/dL (0.2-1.0); Potassium 3.4 mmol/L (3.5-5.1); Protein, Total 4.6 g/dL (6.4-8.2)
[2020-02-20 11:45] LABS: Blood Morphology Comment NOT SEEN (NOT SEEN); Platelet Estimate DECR; White Blood Cell Scan OK (OK)
[2020-02-20] MEDS ORDERED: PANTOPRAZOLE 40MG TABLET PO ONE (12:55)
--- NOTE | 2020-02-21 08:39 | P.PN ---
Subjective Date of Service: 02/20/20 Patient is improving. Still has significant scrotal swelling which is making it difficult for him to ambulate. Abdominal is still slightly distended. Will do an abdominal ultrasound scrotal ultrasound. Getting close to discharge over the next 48 hr Review of Systems 10-point ROS is otherwise unremarkable Physical Examination - Vital Signs Temperature: 98.5 F Blood Pressure: 108/50 Pulse: 76 Respirations: 20 Pulse Ox (%): 92 - Physical Exam General: Alert, In no apparent distress, Oriented x3 Respiratory: Clear to auscultation bilaterally, Normal air movement Cardiovascular: Regular rate/rhythm, Normal S1 S2, No murmurs Gastrointestinal: Normal bowel sounds, No tenderness, Distended Musculoskeletal: No clubbing, No swelling, No tenderness Integumentary: No rashes Neurological: Sensation intact, Cranial nerves 3-12 intact External genitalia: Edema - Studies Medications List Reviewed: Yes Assessment & Plan - Problems (Diagnosis) (1) Alcoholic cirrhosis of liver Current Visit: Yes Status: Acute (2) Anasarca Current Visit: Yes Status: Acute (3) Hypoalbuminemia Current Visit: Yes Status: Acute (4) Scrotal edema Current Visit: Yes Status: Acute - Plan Plan: Continue with plan of care as mentioned below 1. Continue gentle diuresing 2. Abdominal ultrasound & scrotal ultrasound 3. Out of bed and ambulate; appreciate physical therapy assistance 4. Ammonia level elevated and started lactulose 5. Daily weight 6. Strict input and output 7. Monitor LFTs and renal function 8. GI and DVT prophylax is Discharge Plan: Home Plan to discharge in: 48 Hours - Advance Directives Does patient have a Living Will: No Does patient have a Durable POA for Healthcare: No - Code Status/Comfort Care Code Status: Full Code Critical Care: No Time Spent Managing PTS Care (In Minutes): 35
[2020-02-21] MEDS: LACTULOSE 20 GM/30 ML UCUP PO SCH ×2 (09:00→21:01)
[2020-02-21] MEDS: SPIRONOLACTONE 25 MG TABLET PO SCH (09:54)
[2020-02-21 10:51] LABS: Absolute Lymphocytes (CBC) 1.1 K/uL (0.7-4.9); Basophils % 0.3 % (0-1.3); Hematocrit 32.1 % (39.6-49.0); Lymphocytes % 12.2 % (15.3-44.8); MPV 8.4 fL (7.6-11.3); RBC Red Blood Cell Count 3.08 M/uL (4.33-5.43)
[2020-02-21 11:41] LABS: Albumin 2.8 g/dL (3.4-5.0); Folic Acid, (Folate) 8.4 ng/mL (3.1-17.5); Magnesium 1.9 mg/dL (1.8-2.4); Potassium 3.5 mmol/L (3.5-5.1); Protein, Total 4.8 g/dL (6.4-8.2)
[2020-02-21 11:42] LABS: Bilirubin Total 5.4 mg/dL (0.2-1.0)
[2020-02-21 11:44] LABS: Protime INR 1.51
[2020-02-21] MEDS: FUROSEMIDE 20 MG/ 2ML VIAL IV SCH ×2 (13:53→17:23)
--- NOTE | 2020-02-21 14:02 | RAD REPORT ---
EXAM DESCRIPTION: US - Abdomen Exam Complete - 02/21/2020 1:00 pm CLINICAL HISTORY: ASCITES , abdominal pain COMPARISON: Abdomen Pelvis W Contrast dated 02/16/2020 FINDINGS: Well filled gallbladder shows multiple 10 mm sized gallstones near the neck of the gallbla dder. No gallbladder wall thickening. Ascites is present matching the CT study. Common bile duct is n ormal with no common duct stone identified. Liver is 13 cm with heterogeneous, coarsened echogenicity and nodular capsular contour. This is a pat tern commonly seen with cirrhosis. No focal liver parenchymal lesions seen. No portal vein abnormalit y identified. Spleen is 14 cm with no focal splenic lesion. The pancreas is grossly normal but partially obscured by bowel. No pancreatic focal abnormality on February 15 CT study. No hydronephrosis or suspicious mass in either kidney. Aorta and IVC show no significant finding. No mass or bulky lymphadenopathy. IMPRESSION: Multi stone cholelithiasis without gallbladder wall thickening. No biliary tree abnormal ity. Cirrhotic liver with no focal liver lesion. Ascites is present matching the CT study.
--- NOTE | 2020-02-21 14:04 | RAD REPORT ---
EXAM DESCRIPTION: US - Scrotum Testicles - 02/21/2020 1:00 pm CLINICAL HISTORY: ASCITES/SCROTAL EDEMA COMPARISON: CT imaging February 15 FINDINGS: Homogeneous testicular tissue with no focal testicular lesion. Doppler evaluation shows no rmal blood flow within the testicular tissue. No epididymis enlargement or hyperemia. No hydrocele or other extratesticular abnormality. Scrotal wall thickening is present, not uncommon in patients with ascites. IMPRESSION: Scrotal wall thickening probably related to the underlying ascites and systemic disease. Normal blood flow within the testicles. No focal testicular lesion.
--- NOTE | 2020-02-21 19:10 | P.PN ---
Subjective Date of Service: 02/21/20 Patient is improving. Still has scrotal swelling which is making it difficult for him to ambulate. The swelling has improved. Abdominal is still slightly distended. Will do an abdominal ultrasound scrotal ultrasound. Getting close to discharge over the next 48 hr Review of Systems 10-point ROS is otherwise unremarkable Physical Examination - Vital Signs Temperature: 98 F Blood Pressure: 125/60 Pulse: 82 Respirations: 19 Pulse Ox (%): 93 - Physical Exam General: Alert, In no apparent distress, Oriented x3 Respiratory: Clear to auscultation bilaterally, Normal air movement Cardiovascular: Regular rate/rhythm, Normal S1 S2, No murmurs Gastrointestinal: Normal bowel sounds, Soft and benign, Non-distended, No tenderness Musculoskeletal: No clubbing, No tenderness, Swelling Integumentary: No rashes Neurological: Normal speech, Normal tone, Cranial nerves 3-12 intact - Studies Medications List Reviewed: Yes Assessment & Plan - Problems (Diagnosis) (1) Alcoholic cirrhosis of liver Status: Acute (2) Anasarca Status: Acute (3) Hypoalbuminemia Status: Acute (4) Scrotal edema Status: Acute - Plan Plan: Continue with plan of care as mentioned below 1. Continue gentle diuresing; abdominal swelling and scrotal swelling is better 2. Abdominal ultrasound & scrotal ultrasound 3. Out of bed and ambulate; appreciate physical therapy assistance 4. Ammonia level elevated and started lactulose 5. Daily weight 6. Strict input and output 7. Monitor LFTs and renal function 8. GI and DVT prophylax is Discharge Plan: Home Plan to discharge in: Greater than 2 days - Advance Directives Does patient have a Living Will: No Does patient have a Durable POA for Healthcare: No - Code Status/Comfort Care Code Status: Full Code Critical Care: No Time Spent Managing PTS Care (In Minutes): 30
[2020-02-21] MEDS ORDERED: FUROSEMIDE 20 MG/ 2ML VIAL IV SCH (20:00)
[2020-02-22] MEDS: FUROSEMIDE 20 MG/ 2ML VIAL IV SCH ×3 (00:36→16:07)
[2020-02-22] MEDS: SPIRONOLACTONE 25 MG TABLET PO SCH (09:36)
[2020-02-22] MEDS: LACTULOSE 20 GM/30 ML UCUP PO SCH ×3 (09:37→21:09)
[2020-02-22 11:14] LABS: Absolute Lymphocytes (CBC) 1.2 K/uL (0.7-4.9); Basophils % 0.4 % (0-1.3); Hematocrit 31.9 % (39.6-49.0); Lymphocytes % 14.4 % (15.3-44.8); MPV 8.6 fL (7.6-11.3); RBC Red Blood Cell Count 3.09 M/uL (4.33-5.43)
[2020-02-22 11:30] LABS: Albumin 2.7 g/dL (3.4-5.0); Potassium 3.3 mmol/L (3.5-5.1); Protein, Total 4.8 g/dL (6.4-8.2)
[2020-02-22] MEDS ORDERED: LACTULOSE 20 GM/30 ML UCUP PO ONE (15:07)
[2020-02-23] MEDS: FUROSEMIDE 20 MG/ 2ML VIAL IV SCH ×2 (01:12→09:57)
[2020-02-23] MEDS: LACTULOSE 20 GM/30 ML UCUP PO SCH ×2 (03:53→09:57)
[2020-02-23 05:37] LABS: Absolute Lymphocytes (CBC) 1.2 K/uL (0.7-4.9); Basophils % 0.4 % (0-1.3); Hematocrit 33.5 % (39.6-49.0); Lymphocytes % 17.6 % (15.3-44.8); RBC Red Blood Cell Count 3.21 M/uL (4.33-5.43)
[2020-02-23 06:06] LABS: Albumin 2.6 g/dL (3.4-5.0); Bilirubin Total 4.4 mg/dL (0.2-1.0); Magnesium 1.9 mg/dL (1.8-2.4); Potassium 3.1 mmol/L (3.5-5.1); Protein, Total 4.6 g/dL (6.4-8.2)
[2020-02-23] MEDS: SPIRONOLACTONE 25 MG TABLET PO SCH (08:38)
--- NOTE | 2020-02-23 08:39 | P.PN ---
Subjective Date of Service: 02/22/20 Patient is improving. plan was to discharge him but his ammonia level came back significantly elevated. Discharge was held and anticipate discharge in the morning. Review of Systems 10-point ROS is otherwise unremarkable Physical Examination - Vital Signs Temperature: 97.4 F Blood Pressure: 101/53 Pulse: 75 Respirations: 18 Pulse Ox (%): 91 - Physical Exam General: Alert, In no apparent distress, Oriented x3 Respiratory: Clear to auscultation bilaterally, Normal air movement Cardiovascular: Regular rate/rhythm, Normal S1 S2, Systolic murmur Gastrointestinal: Normal bowel sounds, Soft and benign, Non-distended, No tenderness Musculoskeletal: No clubbing, Swelling Neurological: Normal gait, Normal tone, Sensation intact, Abnormal strength (S lightly diminished strength at 4+ over 5) - Studies Medications List Reviewed: Yes Assessment & Plan - Problems (Diagnosis) (1) Alcoholic cirrhosis of liver Current Visit: Yes Status: Acute (2) Anasarca Current Visit: Yes Status: Acute (3) Hypoalbuminemia Current Visit: Yes Status: Acute (4) Scrotal edema Current Visit: Yes Status: Acute (5) Hyperammonemia Current Visit: Yes Status: Acute - Plan Plan: Continue with plan of care as mentioned below 1. increase lactulose dosing 2. Abdominal ultrasound & scrotal ultrasound with no substantial fluid collection 3. Out of bed and ambulate; appreciate physical therapy assistance; patient doing well 4. Ammonia level elevated and increase lactulose dosing 5. Daily weight 6. Strict input and output 7. Monitor LFTs and renal function 8. GI and DVT prophylax is Discharge Plan: Home Plan to discharge in: Greater than 2 days - Advance Directives Does patient have a Living Will: No Does patient have a Durable POA for Healthcare: No - Code Status/Comfort Care Code Status: Full Code Critical Care: No Time Spent Managing PTS Care (In Minutes): 35
[2020-02-23 10:33] VITALS: O2SAT 94
--- NOTE | 2020-02-25 23:28 | P.DS ---
Discharge Date: 02/23/20 Disposition: ROUTINE DISCHARGE Discharge Condition: GOOD Reason for Admission: Cirrhosis, volume overload - Problems (1) Alcoholic cirrhosis of liver Status: Acute (2) Anasarca Status: Acute (3) Hypoalbuminemia Status: Acute (4) Scrotal edema Status: Acute (5) Hyperammonemia Status: Acute Brief History of Present Illness: Patient is a 70-year-old male with history of cirrhosis secondary to hepatitis presents emergency department for swelling of the lower extremities. Patient sees hepatology at [facility] in takes spironolactone and Lasix. Patient noticed increased swelling to lower extremities over the last couple of weeks. Patient was evaluated in the emergency department, labs relatively unremarkable aside from liver function which is to be expected. ED provider attempted to reach out to [facility] hepatology department but was unable to reach anybody. Initially plan to discharge patient on increased dose of Lasix but during his emergency department stay the patient developed significant scrotal edema. The decision was made to place a Mckay catheter to prevent any urinary retention. Mckay catheter in place, patient was administered 60 mg of Lasix in the emergency department, is diuresing well. ED provider wishes to admit patient for further evaluation and management. When I saw the patient in the ER he was awake, alert, oriented x3. Patient's only complaint is swelling of the lower extremities and scrotum. Will diurese patient overnight, likely discharge tomorrow. Patient made aware that we do not have hepatology or GI home health occupational therapist in that this admission is primarily for diuresis. Patient is amenable to this. Hospital Course: Patient was diuresed extensively. Patient had significant amount of urine output. Patient's edema improved quite a bit. Patient also has some scrotal edema that has improved. Patient has cirrhosis and we gave him information regarding follow-up with a operations support coordinator. At this time, patient is stable for discharge home with outpatient follow. Vital Signs/Physical Exam: Temp Pulse Resp BP Pulse Ox 97.4 F 79 18 124/59 L 91 02/23/20 08:38 02/23/20 09:57 02/23/20 08:38 02/23/20 09:57 02/23/20 08:38 General: Alert, In no apparent distress, Oriented x3 Laboratory Data at Discharge: WBC 7.0 K/uL (4.3-10.9) D 02/23/20 05:21 Hgb 11.2 g/dL (13.6-17.9) L 02/23/20 05:21 Hct 33.5 % (39.6-49.0) L 02/23/20 05:21 Plt Count 82 K/uL (152-406) L 02/23/20 05:21 PT 17.7 SECONDS (9.5-12.5) H 02/21/20 10:39 INR 1.51 02/21/20 10:39 APTT 34.7 SECONDS (24.3-36.9) 02/21/20 10:39 Sodium 139 mmol/L (136-145) 02/23/20 05:21 Potassium 3.1 mmol/L (3.5-5.1) L 02/23/20 05:21 BUN 23 mg/dL (7-18) H 02/23/20 05:21 Creatinine 1.25 mg/dL (0.55-1.3) 02/23/20 05:21 Glucose 117 mg/dL (74-106) H 02/23/20 05:21 Phosphorus 3.0 mg/dL (2.5-4.9) 02/23/20 05:21 Magnesium 1.9 mg/dL (1.8-2.4) 02/23/20 05:21 Total Bilirubin 4.4 mg/dL (0.2-1.0) H 02/23/20 05:21 AST 40 U/L (15-37) H 02/23/20 05:21 ALT 41 U/L (12-78) 02/23/20 05:21 Alkaline Phosphatase 90 U/L (45-117) 02/23/20 05:21 Home Medications: Meloxicam 15 mg PO DAILY 07/21/18 Spironolactone [Aldactone*] 50 mg PO DAILY 07/21/18 Furosemide [Lasix*] 20 mg PO BID #60 tab 02/23/20 Lactulose [Cephulac*] 30 ml PO Q8HR #2000 ml 02/23/20 Spironolactone [Aldactone*] 25 mg PO BID #30 tab 02/23/20 New Medications: Spironolactone [Aldactone*] 25 mg PO BID #30 tab Lactulose [Cephulac*] 30 ml PO Q8HR #2000 ml Furosemide [Lasix*] 20 mg PO BID #60 tab Patient Discharge Instructions: OK TO DC IV AND DC HOME. FOLLOW-UP WITH PRIMARY CARE PROVIDER IN 1-2 WEEKS. FOLLOW-UP WITH Gastroenterology and Hepatology IN 1-2 WEEKS. RETURN TO THE ER IF symptoms worsen. CALL or TEXT DR. FLORES AT [phone] IF ANY QUESTIONS REGARDING HOSPITAL STAY. PLEASE CALL THE FLOOR AT [phone] IF ANY MEDICATION OR NURSING QUESTIONS. Diet: Renal Activity: Fall precautions Followup: Jan Kenney MD [Primary Care Provider] - Andrew Botello MD [ASSOCIATE-ACTIVE - CAN ADMIT] - Time spent managing pt's care (in minutes): 35
[2020-02-25 23:33] VITALS: BP 125/60; TEMP 98
== END 2020-02-23 12:20 | disposition home or self-care (01) | DRG 433 ==
LOC: ER 09:01 → ERHOLD 22:44 → 2ND 02-17 10:08 → OBSVTOIN 02-17 19:39
PROVIDERS: ADMIT Internal Medicine Sleep Medicine; ATTEND Hospitalist
DX: K70.31 Alcoholic cirrhosis of liver with ascites (principal); E72.20 Disorder of urea cycle metabolism, unspecified; E88.09 Other disorders of plasma-protein metabolism, not elsewhere classified; N50.89 Other specified disorders of the male genital organs; Z88.5 Allergy status to narcotic agent; Z60.2 Problems related to living alone; Z79.899 Other long term (current) drug therapy; Z20.822 Contact with and (suspected) exposure to COVID-19
CPT/HCPCS: 36415; 71045; 74177; 76700; 76870; 80048; 80053; 80076; 81003; 81015; 82140; 82607; 82746; 83540; 83735; 83880; 84100; 84484; 85025; 85610; 85730; 93005; 97110; 97112; 97116; 97161; 97530; 99284; G0378; J1940; P9047; Q9967; U0003

== ENCOUNTER 2020-03-11 15:09 | Inpatient (IN) | payer OTHER ==
--- OUTSIDE RECORDS SUMMARY | 2020-03-11 15:30 | XMS REPORT | Continuity of Care Document ---
:[address] [facility] t Address [address] [place] [address] Care Team Providers Name Role Phone Anne [...] - 00:00: 00:00 [facility] spironolact spironolact Yes Renato not [facility] Furosemide Furosemide Yes Renato not [facility] defined [facility] Procedures This patient has no known procedures. Plan of Care Planned Activity Planned Date Details Comments Source Future Scheduled 2019-09-22 INFLUENZA VACCINE [place] [facility] 00:00:00 [code = INFLUENZA VACCINE] Future Scheduled 2016-01-29 65+ PNEUMOCOCCAL [facility] 00:00:00 VACCINE (1 of 1 - PPSV23) [code = 65+ PNEUMOCOCCAL VACCINE (1 of 1 - PPSV23)] Future Scheduled 2001 [facility] S[facility]ENING [facility] 00:00:00 [code = COLONOSCOPY SCREENING] Future Scheduled 2001 SHINGLES VACCINES (#1) [place] [facility] 00:00:00 [code = SHINGLES VACCINES (#1)] Future Scheduled 1967 COVID-19 VACCINE (1 of [place] [facility] 00:00:00 2) [code = COVID-19 VACCINE (1 of 2)] Encounters Start End Encounter Admission Attending Care Care Encounter Source Date/Time Date/Time Type Type Clinicians Facility Department ID 2020-01-04 2020-01-04 Urgent Provider, [facility] [id number] 11:30:05 11:50:05 Care [facility] [id number] Care [place] [id number] Professio [phone] nal [phone] 2019-12-25 2019-12-25 Urgent Provider, [facility] [id number] 17:09:55 18:06:32 Care [facility] [id number] Care [place] [id number] Professio [phone] nal [phone] [address] 2018-05-01 2018-05-01 [facility] [id number] [address] 15:00:00 15:00:00 [facility] Results This patient has no known results.
--- OUTSIDE RECORDS SUMMARY | 2020-03-11 15:30 | XMS REPORT | Clinical Summary ---
:1950 Author Organization [facility] Address [address] [place] [id number] Care Team Providers Name Role Phone MD Anne Marie Primary Care Provider Allergies Not on File Medications Not on file Active Problems Not on file Social History Tobacco Use Types Packs/Day Years Used Date Never Assessed Sex Assigned at Date Recorded Not on file Last Filed Vital Signs Not on file Plan of Treatment Health Maintenance Due Date Last Done Comments COVID-19 VACCINE (1 of 2) 1967 COLONOSCOPY SCREENING 2001 SHINGLES VACCINES (#1) 2001 65+ PNEUMOCOCCAL VACCINE (1 of 1 - PPSV23) 01/29/2016 INFLUENZA VACCINE 09/22/2019 Results Not on fileafter 03/11/2019 Advance Directives For more information, please contact: [phone] Type Date Recorded 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
[2020-03-11 17:43] LABS: Absolute Lymphocytes (CBC) 1.2 K/uL (0.7-4.9); Basophils % 0.6 % (0-1.3); Hematocrit 34.2 % (39.6-49.0); Lymphocytes % 12.4 % (15.3-44.8); MPV 8.1 fL (7.6-11.3); RBC Red Blood Cell Count 3.22 M/uL (4.33-5.43)
--- NOTE | 2020-03-11 17:43 | RAD REPORT ---
EXAM DESCRIPTION: RAD - Chest Single View - 03/11/2020 4:59 pm CLINICAL HISTORY: SOB COMPARISON: Portable February 16, 2020 TECHNIQUE: AP portable chest image was obtained 03/11/2020 4:59 pm . FINDINGS: Lung volumes are low. Interstitial pattern is increased over on already prominent baseline pattern. Heart size is normal range. Vasculature is mildly prominent. No peripheral consolidation or mass. No measurable pleural effusion and no pneumothorax. No acute bony abnormality seen. No acute a ortic findings suspected. IMPRESSION: Prominent interstitial pattern believed to be mild edema accentuated by large body habit us and low lung volumes.
[2020-03-11 17:45] LABS: Protime INR 1.28
[2020-03-11 17:55] LABS: ALT/SGPT 48 U/L (12-78); AST/SGOT 48 U/L (15-37); Albumin 2.9 g/dL (3.4-5.0); Alkaline Phosphatase 123 U/L (45-117); BUN Blood Urea Nitrogen 25 mg/dL (7-18); Bicarbonate 29 mmol/L (21-32); Bilirubin Direct 1.5 mg/dL (0-0.2); Bilirubin Total 4.6 mg/dL (0.2-1.0); Glucose Level 118 mg/dL (74-106); Magnesium 2.4 mg/dL (1.8-2.4); NT PRO-BNP 205 pg/mL (<125); Potassium 4.4 mmol/L (3.5-5.1); Protein, Total 5.7 g/dL (6.4-8.2); Sodium Level 138 mmol/L (136-145); Troponin (Emerg Dept Use Only) < 0.02 ng/mL (0.0-0.045)
--- NOTE | 2020-03-11 18:25 | RAD REPORT ---
EXAM DESCRIPTION: US - Extrem Venous W Compress Laurent - 03/11/2020 5:59 pm CLINICAL HISTORY: SWELLING COMPARISON: None. TECHNIQUE: Real-time sonographic evaluation of the bilateral lower extremity common femoral, superfi cial femoral, popliteal and posterior tibial veins was performed. FINDINGS: Normal compressibility, flow augmentation, phasic flow and spontaneous flow are identified in the left and right lower extremity common femoral, superficial femoral, and popliteal veins. Bila teral posterior tibial veins were not well visualized. Thrombus is not suspected. No intraluminal alberto ling defects seen. IMPRESSION: No DVT in either lower extremity.
[2020-03-11] MEDS ORDERED: FUROSEMIDE 40 MG/4 ML VIAL ONE (18:52)
[2020-03-11 19:55] LABS: Blood Morphology Comment NOTED (NOT SEEN); Macrocytosis SLIGHT; Platelet Estimate DECR; White Blood Cell Scan OK (OK)
--- NOTE | 2020-03-11 19:55 | RAD REPORT ---
EXAM DESCRIPTION: CT - Chest Abdomen Pelvis W Cont - 03/11/2020 7:16 pm CLINICAL HISTORY: Abdominal distention;SOB COMPARISON: Chest Single View dated 03/11/2020 TECHNIQUE: Following dynamic enhancement using 100 milliliters nonionic IV contrast, axial imaging o f the chest, abdomen and pelvis was performed. Biphasic technique was utilized through the abdomen. No oral contrast. All CT scans are performed using dose optimization technique as appropriate and may include automated exposure control or mA/KV adjustment according to patient size. FINDINGS: No suspicious mass or consolidation identified. Interstitial pattern is thickened suggesti ng underlying edema. No pleural effusion, pleural thickening or pneumothorax. No significant aortic o r pulmonary arterial tree finding. Mediastinal and hilar regions show no mass or abnormal lymphadenop athy. No chest wall mass or axillary lymphadenopathy. The liver is small with a nodular capsular contour. No focal liver lesions identifiable. Gallbladder is difficult to assess being isodense to the ascites. Gallstones are questionable. No biliary tree di latation. No spleen or pancreatic abnormality. Symmetric renal function is seen with no mass or hydronephrosis. No adrenal abnormalities. No bladder abnormality seen. No gastric dilatation or gastric wall thickening. Assessment is limited. The absence of intra lumen c ontent accentuates wall thickness. No dilated large or small bowel loops. A few bowel loops show prom inent wall thickness which is probably a secondary response to the cirrhosis and ascites. Patient has numerous dilated varices near the GE junction and in the right lower abdomen and pelvis. No free air or pneumatosis. Moderately large volume of ascites present. This is primarily collecting around the liver. Patient has significant fluid retention in the subcutaneous fatty tissues. Prominent mid and lower lumbar degenerative change. No acute or pathologic process identifiable. No b ulky lymphadenopathy or suspicious soft tissue mass. No acute vascular finding. IMPRESSION: No significant CT chest finding. Patient likely has interstitial edema. Moderately large volume of ascites with extensive fluid retention in the subcutaneous fatty tissues. Mild wall thickening in several small bowel loops probably a systemic response to the liver disease a nd ascites. Cirrhotic liver changes in the small liver. No focal liver lesion identifiable. Suspected cholelithiasis. No biliary tree dilatation.
--- NOTE | 2020-03-11 20:22 | ER ---
Nurse's Notes [facility] Name: Dorian Cruz Age: 70 yrs Sex: Male : 1950 Arrival Date: 03/11/2020 Time: 15:12 Bed 19 Private MD: Jan Kenney Diagnosis: Pulmonary edema;Unspecified cirrhosis of liver;Ascites;Orthopnea Presentation: 03/11 15:17 Chief complaint: Patient states: I have extra 35 lbs of water on me. Am seeing a liver ca1 specialist Dr. Canales in [place], he prescribed me meds to lose this extra water, but it is not working. Denies abdominal pain. Reports pain and swelling on both scrotum, pain is worse on the R side. Pt has Liver Cirrhosis since 4 years ago. Reports cough and SOB with exertion x 2 weeks. Denies fever. Coronavirus screen: Client denies travel out of the [place] in the last 14 days. cough unrelated to allergies, shortness of breath, Client presents with at least one sign or symptom that may indicate coronavirus-19. Standard/surgical mask placed on the client. Provider contacted for isolation considerations. Ebola Screen: Patient negative for fever greater than or equal to 101.5 degrees Fahrenheit, and additional compatible Ebola Virus Disease symptoms Patient denies exposure to infectious person. Patient denies travel to an Ebola-affected area in the 21 days before illness onset. No symptoms or risks identified at this time. Initial Sepsis Screen: Does the patient meet any 2 criteria? No. Patient's initial sepsis screen is negative. Does the patient have a suspected source of infection? No. Patient's initial sepsis screen is negative. Risk Assessment: Do you want to hurt yourself or someone else? Patient reports no desire to harm self or others. Onset of symptoms was March 11, 2020. 15:17 Method Of Arrival: Wheelchair ca1 15:17 Acuity: NGOC 3 ca1 Triage Assessment: 16:35 General: Appears distressed, uncomfortable, obese, Behavior is cooperative, appropriate bp for age, anxious. Pain: Complains of pain in abdomen. EENT: No deficits noted. Neuro: No deficits noted. Cardiovascular: No deficits noted. Respiratory: No deficits noted. GI: Abdomen is noted to have ascites. : No signs and/or symptoms were reported regarding the genitourinary system. Derm: No deficits noted. Musculoskeletal: No deficits noted. Historical: - Allergies: 15:24 Codeine; ca1 - PMHx: 15:23 Cirrhosis; Hepatitis; ca1 - PSHx: 15:23 Tonsillectomy; steel plate in left knee; ca1 - Immunization history:: Pneumococcal vaccine is not up to date, Flu vaccine is not up to date. - Social history:: Smoking status: Patient denies any tobacco usage or history of. Screenin:36 Abuse screen: Denies threats or abuse. Denies injuries from another. Nutritional bp screening: No deficits noted. Tuberculosis screening: No symptoms or risk factors identified. Fall Risk None identified. Assessment: 16:36 General: SEE TRIAGE NOTE. bp 17:28 Reassessment: No changes from previously documented assessment. Patient and/or family bp updated on plan of care and expected duration. Pain level reassessed. Patient is alert, oriented x 3, equal unlabored respirations, skin warm/dry/pink. U/S PENDING. 18:30 Reassessment: No changes from previously documented assessment. Patient and/or family bp updated on plan of care and expected duration. Pain level reassessed. Patient is alert, oriented x 3, equal unlabored respirations, skin warm/dry/pink. ALL CURRENT ORDERS COMPLETED. 19:00 Reassessment: Patient appears in no apparent distress at this time. Patient and/or jb4 family updated on plan of care and expected duration. Pain level reassessed. Patient is alert, oriented x 3, equal unlabored respirations, skin warm/dry/pink. 20:00 Reassessment: Patient appears in no apparent distress at this time. Patient and/or jb4 family updated on plan of care and expected duration. Pain level reassessed. Patient is alert, oriented x 3, equal unlabored respirations, skin warm/dry/pink. 21:00 Reassessment: Patient appears in no apparent distress at this time. Patient and/or jb4 family updated on plan of care and expected duration. Pain level reassessed. Patient is alert, oriented x 3, equal unlabored respirations, skin warm/dry/pink. Vital Signs: 15:17 BP 133 / 78; Pulse 82; Resp 20 S; Temp 97.9(TE); Pulse Ox 95% on R/A; Weight 138.35 kg ca1 (R); Height 5 ft. 10 in. (177.80 cm) (R); Pain 2/10; 17:28 BP 115 / 53; Pulse 74; Resp 16; Pulse Ox 97% ; bp 18:30 BP 110 / 52; Pulse 72; Resp 16; Pulse Ox 96% ; bp 19:30 BP 119 / 63; Pulse 79; Resp 16; Pulse Ox 99% on R/A; jb4 20:30 BP 114 / 55; Pulse 78; Resp 16; Pulse Ox 95% on R/A; jb4 21:30 BP 126 / 77; Pulse 80; Resp 17; Pulse Ox 98% ; jb4 15:17 Body Mass Index 43.76 (138.35 kg, 177.80 cm) ca1 ED Course: 15:12 Patient arrived in ED. am4 15:13 Jan Kenney MD is Private Physician. am4 15:22 Triage completed. ca1 15:23 Arm band placed on right wrist. ca1 16:30 Fredrick Harris PA is PHCP. cp 16:30 Fredrick Bell MD is Attending Physician. cp 16:33 Madi Martin, JENNIFER is Primary Nurse. bp 16:36 Patient has correct armband on for positive identification. Bed in low position. Call bp light in reach. Side rails up X2. 16:59 XRAY Chest (1 view) In Process Unspecified. EDMS 17:17 Warm blanket given. digital content manager on. Pulse ox on. NIBP on. mh5 17:17 EKG done, by ED staff, reviewed by Fredrick Bell MD. mh5 17:25 Inserted saline lock: 20 gauge in right antecubital area, using aseptic technique. bp Blood collected. 17:59 US Extremity Venous W Compression Laurent In Process Unspecified. EDMS 19:16 CT Chest, Abdomen, Pelvis - W/Contrast In Process Unspecified. EDMS 20:20 Jan Kenney MD is Hospitalizing Provider. cp 21:58 No provider procedures requiring assistance completed. Patient admitted, IV remains in jb4 place. Administered Medications: 18:40 Drug: Lasix 40 mg Route: IVP; Site: right antecubital; bp 21:27 Drug: Lasix 20 mg Route: IVP; Site: right antecubital; jb4 Outcome: 20:21 Decision to Hospitalize by Provider. cp 21:58 Admitted to Med/surg accompanied by tech, via stretcher, with chart. jb4 21:58 Condition: stable 21:58 Discharge instructions given to patient, Instructed on the need for admit, Demonstrated understanding of instructions. 22:19 Patient left the ED. carol ann Signatures: Dispatcher [employer] EDNathan Cardoza RN RN Fredrick Pino PA PA cp Bryson, James RN RN Sandra Carvalho Madi Jeffery RN RN bp Acob, Cheryl, RN RN ca1 Martinez, Ashley am4 Corrections: (The following items were deleted from the chart) 15:24 15:23 Allergies: No Known Allergies; ca1 ca1
--- NOTE | 2020-03-11 20:23 | EDPHYS ---
Physician Documentation [facility] Name: Dorian Cruz Age: 70 yrs Sex: Male : 1950 Arrival Date: 03/11/2020 Time: 15:12 Bed 19 Private MD: Jan Kenney ED Physician Fredrick Bell HPI: 03/11 16:55 This 70 yrs old Male presents to ER via Wheelchair with complaints of Cough, cp Abdominal Swelling. 16:55 The patient or guardian reports cough. cp 16:55 Onset: The symptoms/episode began/occurred gradually, and became worse 2 week(s) ago. cp 16:55 Severity of symptoms: in the emergency department the symptoms are unchanged, despite cp home interventions. Associated signs and symptoms: Pertinent negatives: chest pain, fever, vomiting. The patient has experienced similar episodes in the past, multiple times. Patient reports history of hepatitis with cirrhosis and ascitis. Historical: - Allergies: 15:24 Codeine; ca1 - PMHx: 15:23 Cirrhosis; Hepatitis; ca1 - PSHx: 15:23 Tonsillectomy; steel plate in left knee; ca1 - Immunization history:: Pneumococcal vaccine is not up to date, Flu vaccine is not up to date. - Social history:: Smoking status: Patient denies any tobacco usage or history of. ROS: 17:00 Constitutional: Negative for body aches, chills, fever, poor PO intake. cp 17:00 Eyes: Negative for injury, pain, redness, and discharge. cp 17:00 ENT: Negative for ear pain, sore throat, difficulty swallowing, difficulty handling secretions. 17:00 Cardiovascular: Positive for edema, Negative for chest pain, palpitations. 17:00 Respiratory: Positive for cough, with no reported sputum, shortness of breath, at rest. Negative for wheezing. 17:00 Abdomen/GI: Positive for abdominal distension. 17:00 Back: Negative for pain at rest, pain with movement. 17:00 Neuro: Negative for altered mental status, dizziness, headache, syncope, weakness. 17:00 All other systems are negative. Exam: 17:05 Constitutional: The patient appears in no acute distress, alert, awake, cp non-diaphoretic, non-toxic, well developed, well nourished, obese. 17:05 Head/Face: Normocephalic, atraumatic. cp 17:05 Eyes: Periorbital structures: appear normal, Conjunctiva: normal, no exudate, no injection, Sclera: no appreciated abnormality, Lids and lashes: appear normal, bilaterally. 17:05 ENT: External ear(s): are unremarkable, Nose: is normal, Mouth: Lips: moist, Oral mucosa: moist, Posterior pharynx: Airway: no evidence of obstruction, patent. 17:05 Neck: ROM/movement: is normal, is supple, without pain, no range of motions limitations. 17:05 Chest/axilla: Inspection: normal, Palpation: is normal, no crepitus, no tenderness. 17:05 Cardiovascular: Rate: normal, Rhythm: regular, Edema: pedal edema, that is moderate, ankle edema, that is marked, JVD: is not appreciated. 17:05 Respiratory: the patient does not display signs of respiratory distress, Respirations: labored breathing, that is mild, intercostal retractions, are absent, shallow respirations, are not present, Breath sounds: decreased breath sounds, that are mild, throughout, stridor, is not appreciated, wheezing: is not appreciated. 17:05 Abdomen/GI: Inspection: distension, that is severe, Bowel sounds: active, all quadrants, Palpation: soft, in all quadrants, mild abdominal tenderness, in all quadrants, rebound tenderness, is not appreciated, voluntary guarding, is not appreciated, involuntary guarding, is not appreciated. 17:05 Back: ROM is normal. 17:05 Skin: cellulitis, is not appreciated, no rash present. 17:05 Neuro: Orientation: to person, place \T\ time. Mentation: is normal, Motor: moves all fours, strength is normal, Sensation: no obvious gross deficits. 17:15 ECG was reviewed by the Attending Physician. cp Vital Signs: 15:17 BP 133 / 78; Pulse 82; Resp 20 S; Temp 97.9(TE); Pulse Ox 95% on R/A; Weight 138.35 kg ca1 (R); Height 5 ft. 10 in. (177.80 cm) (R); Pain 2/10; 17:28 BP 115 / 53; Pulse 74; Resp 16; Pulse Ox 97% ; bp 18:30 BP 110 / 52; Pulse 72; Resp 16; Pulse Ox 96% ; bp 19:30 BP 119 / 63; Pulse 79; Resp 16; Pulse Ox 99% on R/A; jb4 20:30 BP 114 / 55; Pulse 78; Resp 16; Pulse Ox 95% on R/A; jb4 21:30 BP 126 / 77; Pulse 80; Resp 17; Pulse Ox 98% ; jb4 15:17 Body Mass Index 43.76 (138.35 kg, 177.80 cm) ca1 MDM: 16:38 Patient medically screened. ranjan 17:20 Differential Diagnosis: Pneumonia Other CHF, ascites, liver failure, DVT. cp 20:15 Data reviewed: vital signs, nurses notes, lab test result(s), EKG, radiologic studies, cp CT scan, plain films, and as a result, I will admit patient. 20:15 Test interpretation: by ED physician or midlevel provider: ECG, plain radiologic cp studies. Counseling: I had a detailed discussion with the patient and/or guardian regarding: the historical points, exam findings, and any diagnostic results supporting the discharge/admit diagnosis, lab results, radiology results, the need for further work-up and treatment in the hospital. 20:17 Physician consultation: Jan Kenney MD was called at 20:15, was contacted at 20:15, regarding admission, to the telemetry unit. patient's condition, would like consultation with Dr. valiente and DR Bryan. 03/11 17:00 Order name: Basic Metabolic Panel 03/11 17:00 Order name: CBC with Diff; Complete Time: 20:05 03/11 18:26 Interpretation: Normal except: RBC 3.22; HGB 11.8; HCT 34.2; MCV 106.0; MCH 36.7; PLT cp 118; RDW 16.7; LYM% 12.4. 03/11 17:00 Order name: LFT's; Complete Time: 18:26 03/11 18:27 Interpretation: Normal except: AST 48; ALK 123; BILIT 4.6; BILID 1.5; TP 5.7; ALB 2.9; cp A/G 1.0. 03/11 17:00 Order name: Magnesium; Complete Time: 18:26 03/11 17:00 Order name: NT PRO-BNP; Complete Time: 18:26 03/11 17:00 Order name: PT-INR; Complete Time: 18:26 03/11 20:08 Interpretation: Reviewed. 03/11 17:00 Order name: Troponin (emerg Dept Use Only); Complete Time: 18:26 03/11 17:00 Order name: Ptt, Activated; Complete Time: 18:26 03/11 17:01 Order name: Basic Metabolic Panel; Complete Time: 18:26 EDIN 03/11 20:07 Interpretation: Normal except: GLUC 118; BUN 25; GFR 56; CA 8.4. 03/11 19:07 Order name: SARS-COV-2 RT PCR; Complete Time: 20:05 EDIN 03/11 19:55 Order name: CBC Smear Scan; Complete Time: 20:05 EDIN 03/11 20:16 Order name: AMMONIA 03/11 20:54 Order name: Basic Metabolic Panel EDIN 03/11 16:39 Order name: XRAY Chest (1 view); Complete Time: 18:26 03/11 17:00 Order name: EKG; Complete Time: 17:01 03/11 17:00 Order name: Cardiac monitoring; Complete Time: 17:14 03/11 17:00 Order name: EKG - Nurse/Tech; Complete Time: 17:13 03/11 17:01 Order name: US Extremity Venous W Compression Laurent; Complete Time: 18:30 03/11 18:28 Order name: CT Chest, Abdomen, Pelvis - W/Contrast; Complete Time: 20:05 03/11 20:54 Order name: Basic Metabolic Panel [facility] 03/11 20:54 Order name: CBC with Automated Diff EDIN 03/11 20:54 Order name: CBC with Automated Diff EDIN 03/11 20:54 Order name: NT PRO-BNP EDIN 03/11 20:54 Order name: NT PRO-BNP EDIN 03/11 20:54 Order name: Troponin I EDIN 03/11 20:54 Order name: Troponin I EDIN 03/11 20:54 Order name: Troponin I EDIN 03/11 17:00 Order name: IV Saline Lock; Complete Time: 17:28 03/11 17:00 Order name: Labs collected and sent; Complete Time: 17:28 03/11 17:00 Order name: O2 Per Protocol; Complete Time: 17:13 03/11 17:00 Order name: O2 Sat Monitoring; Complete Time: 17:13 cp EC:15 Rate is 74 beats/min. Rhythm is regular. UT interval is normal. QRS interval is cp prolonged at 116 msec. QT interval is normal. T waves are Inverted in lead aVR. Interpreted by me. Reviewed by me. Administered Medications: 18:40 Drug: Lasix 40 mg Route: IVP; Site: right antecubital; bp 21:27 Drug: Lasix 20 mg Route: IVP; Site: right antecubital; jb4 Disposition: 03/12 06:33 Co-signature as Attending Physician, Fredrick Bell MD I agree with the assessment and [facility] plan of care. Disposition: 03/11/20 20:21 Hospitalization ordered by Jan Kenney for Inpatient Admission. Preliminary diagnosis are Pulmonary edema, Unspecified cirrhosis of liver, Ascites, Orthopnea. - Bed requested for Telemetry/MedSurg (Inpatient). - Status is Inpatient Admission. sg - Condition is Fair. - Problem is an ongoing problem. - Symptoms have improved. Signatures: Dispatcher [employer] EDMS Nathan Fernandez RN RN sg Anderson, Corey, MD MD cha Page, Corey, PA PA cp Yves Tolentino, JENNIFER RN jb4 Madi Martin RN RN bp Jaimie Dacosta RN RN ca1 Corrections: (The following items were deleted from the chart) 03/11 15:24 15:23 Allergies: No Known Allergies; ca1 ca1 18:17 17:01 CORONAVIRUS+ ordered. EDMS EDMS 18:27 18:26 Normal except: AST 48; ALK 123; BILIT 4.6; BILID 1.5; TP 5.7; ALB 2.9. cp cp 20:07 18:31 Normal except: GLUC 118; BUN 25; GFR 56. cp cp 21:30 20:21 Hospitalization Ordered by Jan Kenney MD for Inpatient Admission. Preliminary sg diagnosis is Pulmonary edema; Unspecified cirrhosis of liver; Ascites; Orthopnea. Bed requested for Telemetry/MedSurg (Inpatient). Status is Inpatient Admission. Condition is Fair. Problem is an ongoing problem. Symptoms have improved. cp 22:19 21:30 03/11/2020 20:21 Hospitalization Ordered by Jan Kenney MD for Inpatient sg Admission. Preliminary diagnosis is Pulmonary edema; Unspecified cirrhosis of liver; Ascites; Orthopnea. Bed requested for Telemetry/MedSurg (Inpatient). Status is Inpatient Admission. Condition is Fair. Problem is an ongoing problem. Symptoms have improved. sg
[2020-03-11] MEDS ORDERED: ONDANSETRON 4 MG/2 ML VIAL IV PRN (20:51)
[2020-03-11] MEDS ORDERED: FUROSEMIDE 20 MG/ 2ML VIAL ONE (21:37)
[2020-03-12 06:11] LABS: Basophils % 0.9 % (0-1.3); Hematocrit 31.7 % (39.6-49.0); Lymphocytes % 12.3 % (15.3-44.8); MPV 7.9 fL (7.6-11.3); RBC Red Blood Cell Count 2.99 M/uL (4.33-5.43)
[2020-03-12 06:33] LABS: Potassium 4.4 mmol/L (3.5-5.1)
[2020-03-12] MEDS: FUROSEMIDE 40 MG/4 ML VIAL IV SCH (08:40)
--- NOTE | 2020-03-12 11:59 | RAD REPORT ---
EXAM DESCRIPTION: US - Abdomen Exam Limited - 03/12/2020 11:13 am CLINICAL HISTORY: Ascites COMPARISON: March 11, 2020 cat scan FINDINGS: Patient presented for a paracentesis. The amount of ascites within the abdomen and pelvis has diminished since the prior exam. Only a relatively small amount of ascites is noted. Examination was discussed with the referring physician and the procedure was canceled. IMPRESSION: Small amount of ascites diminished from the prior exam
--- NOTE | 2020-03-12 12:11 | EKG ---
Test Date: 2020-03-11 Test Time: 17:08:25 Cruise Staff Member: JOSE CRUZ MEASUREMENT RESULTS: Intervals: Rate: 74 MI: 152 QRSD: 116 QT: 406 QTc: 450 [place]: P: 21 MI: 152 QRS: -28 T: 58 INTERPRETIVE STATEMENTS: Normal sinus rhythm Left ventricular hypertrophy with QRS widening Abnormal ECG Compared to ECG 02/16/2020 10:14:11 Left ventricular hypertrophy now present Left-axis deviation no longer present Intraventricular conduction delay no longer present Electronically Signed On 03-12-20 12:10:27 BIOINFORMATICS SUPPORT SPECIALIST by Edson Hernandez
--- NOTE | 2020-03-12 13:13 | ECHO ---
HEIGHT: 5 ft 10 in WEIGHT: 308 lb 0 oz DATE OF STUDY: 03/12/[address]: Edson Hernandez MD 2-DIMENSIONAL: YES M.MODE: YES DOPPLER: NO COLOR FLOW: NO TDS: PORTABLE: DEFINITY: BUBBLE STUDY: DIAGNOSIS: SHORTNESS OF BREATH CARDIAC HISTORY: CATHERIZATION: NO SURGERY: NO PROSTHETIC VALVE: NO PACEMAKER: NO MEASUREMENTS (cm) DIASTOLIC (NORMALS) SYSTOLIC (NORMALS) IVSd 1.1 (0.6-1.2) LA Diam 4.1 (1.9-4.0) LVEF 69% LVIDd 3.0 (3.5-5.7) LVIDs 1.9 (2.0-3.5) %FS 37% LVPWd 1.2 (0.6-1.2) Ao Diam 2.7 (2.0-3.7) 2 DIMENSIONAL ASSESSMENT: RIGHT ATRIUM: NORMAL LEFT ATRIUM: NORMAL RIGHT VENTRICLE: NORMAL LEFT VENTRICLE: NORMAL TRICUSPID VALVE: NORMAL MITRAL VALVE: NORMAL PULMONIC VALVE: NORMAL AORTIC VALVE: NORMAL PERICARDIAL EFFUSION: NONE AORTIC ROOT: NORMAL LEFT VENTRICULAR WALL MOTION: NORMAL DOPPLER/COLOR FLOW: NOT REQUESTED COMMENTS: NORMAL 2-DIMENSIONAL ECHOCARDIOGRAM. NORMAL EJECTION FRACTION. NO WALL MOTION ABNORMALITY. NO EFFUSION. TECHNOLOGIST: YUAN MURO
[2020-03-12] MEDS: SPIRONOLACTONE 25 MG TABLET PO SCH (22:11)
[2020-03-13 06:00] VITALS: BMI 43.7
[2020-03-13 06:04] LABS: Potassium 4.3 mmol/L (3.5-5.1)
[2020-03-13 06:11] LABS: Absolute Lymphocytes (CBC) 1.2 K/uL (0.7-4.9); Basophils % 0.7 % (0-1.3); Lymphocytes % 14.6 % (15.3-44.8); MPV 8.3 fL (7.6-11.3); RBC Red Blood Cell Count 3.15 M/uL (4.33-5.43)
[2020-03-13] MEDS: SPIRONOLACTONE 25 MG TABLET PO SCH ×2 (08:38→21:21)
[2020-03-13] MEDS: FUROSEMIDE 40 MG/4 ML VIAL IV SCH (08:38)
--- NOTE | 2020-03-13 11:01 | CON ---
Reason For Consultation: Cirrhosis, ascites. History Of Presenting Illness: The patient is a 70-year-old gentleman with known history of hepatiti s C, cirrhosis, ascites, who [facility], specifically Dr. Canales, but he was on diuret ics, but since April of last year the patient states that he has not taken any diuretics because he r an out and never followed up. He recently was restarted back on diuretics after he had spoken on the phone with Dr. Canales's office, but his swelling got worse and he came to the ER. When I saw the abigail clifford, he already had improved somewhat with IV diuretics. Initial CT head revealed a large volume a scites, but repeat imaging show a decreased amount of ascites. Allergies: CODEINE. Past Medical History: History of cirrhosis, hepatitis C. Past Surgical History: Tonsillectomy, steel plate in the left knee. Family History: Noncontributory. Social History: History of alcohol abuse in the past. Review of Systems: GI: As in HPI, otherwise negative. Remainder of 10-point review of systems is negative. Physical Examination: Vital Signs: Blood pressure 133/78, pulse 82, respiratory rate 20, temperature 97.9. HEENT: Head is atraumatic and normocephalic. Pupils equally reactive. Neck: Supple. Chest: Bilateral air entry. Abdomen: Mild distention, but abdominal wall thickened due to edema. Laboratory Data: Reviewed. Impression: A 70-year-old gentleman with decompensated cirrhosis, noncompliant with followup, now ge tting fluid overload and anasarca secondary to the lack of diuretics. Appears to have improved alrea dy. Fluid not enough for paracentesis. Plan: Continue current management. Continue Lasix as instructed by Dr. Canales as well I will add sp ironolactone 50 mg b.i.d. to the current regimen. He should follow up with Dr. Canales upon discharge . US/MODL Voice ID: [id number] Report ID: [id number]
--- NOTE | 2020-03-13 11:55 | PN ---
Date of Progress Note: 03/12/2020 The patient states he just does not feel right however, and there was not enough fluid to do a parace ntesis. He has significant cirrhosis and has been seen by physicians in [place]. He was recently ad mitted here as well with altered mental status with liver failure; however, at present, he is fully o rientated. We will discuss further with Dr. Bryan as far as disposition and treatment. HR/MODL Voice ID: [id number] Report ID: [id number]
--- NOTE | 2020-03-13 14:22 | HP ---
Date of Admission: 03/11/2020 Entrance Complaint: Fluid retention, swelling in the abdomen, general malaise. History Of Present Illness: The patient was diagnosed with hepatitis C a number of years ago and the n developed cirrhosis. Since that time, ascites has been an issue. He has been seen in the [facility] [place]. I think was indicated according to the patient. However, he was on diuretics and h as been admitted in the past couple weeks for altered mental status, increased ammonia level and asci asher. Once he was treated, he improved significantly, he was oriented. He was discharged. Continued on medication, to recontact the [facility], which I think he has done by telemedicine only. He st ated over the past few days he has noticed that the swelling has increased again. He was therefore p resented to the emergency room as he felt he needed some diuresis. Past History: As above. Other than a relatively good health. Family History: Noncontributory. Social History: Nonsmoker. The patient has had history of alcohol a number of years ago. Physical Examination: General: The patient is an obese, obese, uncomfortable looking male. Vital signs: Stable . Head and neck: Normocephalic. Pupils are equal and reactive to light accommodation. Fundi negative. Trachea midline. Thyroid not palpable. ENT: Negative. Chest: Clear to P and A. Cardiovascular: PMI midclavicular line. Heart: Sounds normal. Peripheral pulses are present and equal bilaterally. Abdomen: Obese, slightly tender subcostal area, slightly distended. Bowel sounds hyperactive. Extremities: Good tone and movement bilaterally. Reflexes are physiologic. Rectal: Deferred. Impression: Ascites secondary to cirrhosis. Plan: The patient will be admitted and placed on IV diuresis and if necessary a paracentesis will be done and also consult with Dr. Bryan. HR/MODL Voice ID: [id number]
--- NOTE | 2020-03-13 15:40 | PN ---
Date of Progress Note: 03/13/2020 The patient states he feels somewhat better today. His edema is slowly receding. There was not enou gh in the abdomen as mentioned to do a paracentesis. However, his extremities and subcutaneous tissu e did have some fluid which is now going down slowly. On further questioning, the patient states he has been rather erratic, but taken his diuretics and this was emphasized that he has to stay on a reg ular basis in order to at least maintain his status quo. He probably can go home in the a.m. with di uretic been getting IV and p.o. form and spironolactone. HR/MODL Voice ID: [id number] Report ID: [id number]
[2020-03-14] MEDS: FUROSEMIDE 40 MG/4 ML VIAL IV SCH (08:33)
[2020-03-14] MEDS: SPIRONOLACTONE 25 MG TABLET PO SCH (08:33)
[2020-03-14 10:43] LABS: Basophils % 0.5 % (0-1.3); Hematocrit 32.8 % (39.6-49.0); Lymphocytes % 13.2 % (15.3-44.8); MPV 8.3 fL (7.6-11.3); RBC Red Blood Cell Count 3.07 M/uL (4.33-5.43)
[2020-03-14 12:13] VITALS: O2SAT 97
[2020-03-14 16:41] VITALS: BP 114/58; TEMP 97.4
--- NOTE | 2020-03-14 18:20 | PN ---
Date of Progress Note: 03/14/2020 The patient states he feels somewhat better today. He has continued to diurese. Somewhat decreased swelling of his abdomen and legs and upper extremities. I feel he could be discharged to continue on spironolactone, Lasix twice a day and his situation is to follow up with Dr. Suero next week and my self on a p.r.n. basis. He was informed that if he develops some more swelling to return to the ER. HR/MODL Voice ID: [id number] Report ID: [id number]
--- NOTE | 2020-03-17 09:22 | CON ---
Date of Consultation: 03/12/[address] Kenney on 03/11/2020. I saw the patient 03/12/2020. Reason For Consultation: Anasarca, ascites, cough, and possible congestive heart failure. History Of Present Illness: Mr. Alarcon is a 70-year-old, came in with complaint of cough, abdomina l swelling. This has been going on for about 2-4 weeks. He denied any chest pain, fever, or vomitin g. Has had similar episodes in the past. He has a history of chronic hepatitis, chronic cirrhosis, and chronic ascites. He denied palpitation or syncope. Denied any fever or chills. Allergies: INCLUDE CODEINE. Past Medical History: Includes cirrhosis and hepatitis, surgery on his left knee. He has had a tons illectomy before. Review of Systems: Negative. Social History: Negative. Family History: Noncontributory. Medications: At home included Lasix 40 mg b.i.d., spironolactone, and lactulose. Physical Examination: Vital Signs: He weighed 305 pounds. Vital signs were otherwise stable. Afebrile. HEENT: Negative. Neck: Supple with no bruit, lymphadenopathy, JVD, or thyromegaly. Chest: Clear to auscultation and percussion. Cardiac: Revealed a regular rhythm and rate. No murmurs, gallops, or rubs. Abdomen: Obese with ascites. Extremities: Revealed 2 to 3+ edema. He also has scrotal edema. Diagnostic Data: Basically, he had a normal creatinine. Hemoglobin is 11.3. His white count was no rmal. His glucose was 124. Chest x-ray showed mild interstitial edema. EKG showed left ventricular hypertrophy with normal sinus rhythm. Venous Doppler was negative for DVT. Chest and abdominal CT revealed interstitial edema, large ascites, cirrhosis, cholelithiasis. Impression And Plan: I think the patient's interstitial edema, cirrhosis, scrotal edema and lower ex tremity edema are probably more secondary to liver failure than cardiac failure. I agree with his pr esent regimen. I think we need to get a 2D echocardiogram on him to rule out congestive heart failur e and pericardial effusion. I think he needs a GI consultation for possible thoracentesis and parace ntesis. We will see what his echocardiogram shows before making further decisions. I will discuss t he case further with Dr. Kenney. RHONDA/AMPARO Voice ID: [id number] Report ID: [id number]
--- NOTE | 2020-04-28 15:01 | DS ---
Date of Discharge: 03/14/2020 Hospital Course: The patient was admitted to the hospital on 03/11, presented to the emergency room with cough and generalized swelling. The patient's known cirrhosis is secondary to hepatitis C. He has been seen by physicians locally and in [place]. Apparently, there has been some miscommunication as far as taking his diuretic. In any event, he presented with altered mental status and marked gagan ma and was treated accordingly with IV Lasix, put back on his lactulose, and his ammonia level droppe d. When this happened, his altered mental status improved and his general condition also improved. His appetite started to come back. He was placed on Lasix and spironolactone at the time of discharg e and was instructed to follow up with his marketing business analyst, Dr. Canales in [place]. During his hospital stay, the question of CHF was also considered. He was seen by Dr. Hernandez. He felt it was more cirr hotic driven than CHF. He was discharged in fair condition with decreased amount of swelling through out. The anasarca improved considerably. The was enough fluid at this time to do paracen tesis. He was discharged therefore home on , follow up with me, marketing business analyst in [place], in fair c on. Final Diagnoses: Cirrhosis, secondary to hepatitis C, acute exacerbation of chronic ascites. ____ anasarca, altered mental status. HR/MODL Voice ID: [id number] Report ID: [id number]
== END 2020-03-14 18:25 | disposition home health service (06) | DRG 433 ==
LOC: ER 15:09 → ERHOLD 21:46 → 2ND 22:06
PROVIDERS: ADMIT Family Medicine; ATTEND Family Medicine
DX: K74.60 Unspecified cirrhosis of liver (principal); R18.8 Other ascites; Z68.41 Body mass index [BMI] 40.0-44.9, adult; E66.9 Obesity, unspecified; N50.89 Other specified disorders of the male genital organs; Z88.5 Allergy status to narcotic agent; Z20.822 Contact with and (suspected) exposure to COVID-19
CPT/HCPCS: 36415; 71045; 71260; 74177; 76705; 80048; 80076; 82140; 83735; 83880; 84484; 85025; 85610; 85730; 93005; 93307; 93970; 96374; 99285; J1940; Q9967; U0003

== ENCOUNTER 2020-04-24 14:32 | Inpatient (IN) | payer OTHER ==
--- OUTSIDE RECORDS SUMMARY | 2020-04-24 14:35 | XMS REPORT | Continuity of Care Document ---
:1950 Author Organization [facility] t Address [address] Melissa. [address] [place] [address] Care Team Providers Name Role Phone Anne Marie WARD Primary Care Physician Bailee WARD, [facility] Attending Clinician Azeem WARD Attending Clinician Jeannie WARD Attending Clinician Bo Rodarte MD Attending Clinician Provider, Urgent Care Attending Clinician Unavailable AZEEM Admitting Clinician Unavailable Payers Payer Name Policy Type Policy Effective Date Expiration Date Sour ce Number MEDICAREMEDICARE PART [id number] 2017 [facility] AND 00:00:00 Religious [id number] 2017- 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 [id number] 2018 [place] MEDICARE 00:00:00 Religious [id number] 2017-PresentComme rcial Problems Condition Condition Condition Status Onset Resolution Last Treating Co mments Source Name Details Category Date Date Treatment Clinician Date Generalize Generalize Disease Active H eve d edema d edema 04-14 Methodi 00:00: st 00 Hyperammon Hyperammon Disease Active H eve emia emia 04-14 Methodi 00:00: st 00 Hypoalbumi Hypoalbumi Disease Active H eve nemia nemia 04-14 Methodi 00:00: st 00 Neuralgia Neuralgia Disease Active Nina ston of right of right 04-14 Method i sciatic sciatic 00:00: st nerve nerve 00 Pain in Pain in Disease Active [place] left knee left knee 04-14 Meth asif 00:00: st 00 Scrotal Scrotal Disease Active [place] edema edema 04-14 Methodi 00:00: st 00 Strain of Strain of Disease Active Nina ston left left 04-14 Methodi patellar patellar 00:00: st tendon tendon 00 Shortness Shortness Disease Active Nina ston of breath of breath 04-01 Meth asif 00:00: st 00 Hepatic Hepatic Disease Active [place] cirrhosis cirrhosis 04-01 Meth asif 00:00: st 00 Pain, Pain, Diagnosis Active [facility], [facility], left knee, left [facility] Strain of Strain of Diagnosis Active [facility] left left [facility] patellar patellar Memori a tendon, tendon, l subsequent subsequent Ou tpati encounter encounter ent Clinics Sciatica, Sciatica, Diagnosis Active [facility] right side right side Trina kes - [facility] Strain of Strain of Problem Active [facility] left left [facility] - patellar patellar Memori a tendon, tendon, l initial initial Outpati encounter encounter ent Clinics Electrolyt Electrolyt Disease Resolve 2020-04-14 2020-04-14 [place] e and e and d 04-01 00:00:00 08:33:16 Method i fluid fluid 00:00: st disorder disorder 00 Allergies, Adverse Reactions, Alerts Allergy Allergy Status Severity Reaction(s) Onset Inactive Treating Comm ents Source Name Type Date Date Clinician Rudy Vance Active Other (See Yordan martel ty to Comments) 04-01 puts him Metho di adverse 00:00: in other st reaction 00 world s to drug codeine Adverse Active Info Not [facility] Reaction Available [facility] Social History Social Habit Start Date Stop Date Quantity Comments Source History [facility] Meth odist Alcohol Std Drinks History [facility] Meth odist Alcohol Binge Sex Assigned At [facility] ethodist Tobacco use and 2020-04-01 2020-04-01 Never used [facility] ethodist exposure 00:00:00 00:00:00 Alcohol intake 2020-04-01 2020-04-01 Lifetime Mas Me thodist 00:00:00 00:00:00 non-drinker (finding) History SDOH 2020-04-01 2020-04-01 1 Chace Meth odist Alcohol Frequency 00:00:00 00:00:00 Smoking Status Start Date Stop Date Source Never smoker Mas Methodis t Medications Ordered Filled Start Stop Current Ordering Indication Dosage Frequency Signature Comments Components Source Medication Medication Date Date Medication? Clinician (SIG) Name Name lactulose 2020- No 20g Q.[id number] Take 20 g Mas 10 gram/15 -04-14 [id number] by mouth 3 Methodi mL (15 mL) 16:38: 00:00 3D (three) st solution 55 :00 times a day. 4am, 12pm, 8pm spironolact 2020- No 50mg Q.5D Take 50 mg Mas one 04-14 by mouth 2 Methodi (ALDACTONE) 16:38: 00:00 (two) st 50 MG 55 :00 times a tablet day. furosemide 2020- No 40mg Q.5D Take 40 mg Mas (LASIX) 40 04-14 by mouth 2 Me thodi mg tablet 16:38: 00:00 (two) st 55 :00 times a day. cyanocobala Yes 1{tbl} QD Take 1 [place], 2-22 tablet by Methodi vitamin 16:38: mouth st B-12, 53 daily. (VITAMIN B-12 ORAL) COQ10, Yes 1[facility] capsule by Met hodi ORAL 16:38: mouth st 53 daily. SAW Yes 1{capsu QD Take 1 Mas PALMETTO 2-22 le} capsule by Metho di ORAL 16:38: mouth st 53 daily. lactulose Yes 20g Q.25D Take 30 mL [place] 20 gram/30 2-22 (20 g Methodi mL solution 00:00: total) by s t 00 mouth 4 (four) times a day. tamsulosin Yes .4mg QD Take 1 [place] (FLOMAX) 2-22 capsule Methodi 0.4 mg 00:00: (0.[address] capsule 00 total) by mouth daily with dinner. spironolact 2021- Yes 100mg Q.5D Take 1 Mateo martel one 04-14 tablet Methodi (ALDACTONE) 00:00: 23:59 ([address] 100 MG 00 :00 total) by tablet mouth 2 (two) times a day. torsemide 2021- Yes 60mg Q.5D Take 3 [place] (DEMADEX) 04-14 tablets Method i 20 MG 00:00: 23:59 ([address] tablet 00 :00 total) by mouth 2 (two) times a day. midodrine 2020- Yes 5mg Q.[id number] Take 1 Mas (PROAMATINE 04-14 [id number] tablet (5 Methodi ) 5 MG 00:00: 23:59 3D mg total) st tablet 00 :00 by mouth 3 (three) times a day for 30 days. Meloxicam Meloxicam 2019- No Renato [address] [facility] 206 05-07 Amadou Tracy - 00:00: 00:00 Memoria 00 :00 l Outpati ent Clinics spironolact spironolact Yes Renato not [facility] one one Amaodu defined [facility] Furosemide Furosemide Yes Renato not [facility] Amadou defined [facility] Immunizations Ordered Immunization Filled Immunization Date Status Commen ts Source Name Name FLUZONE HIGH-DOSE PF 2020-04-14 Completed Kody lópez 00:00:00 Religious Vital Signs Vital Name Observation Time Observation Value Comments Source Systolic blood 2020-04-14 08:17:47 109 mm[Hg] Christa n Religious pressure Diastolic blood 2020-04-14 08:17:47 55 mm[Hg] Theodore on Religious pressure Heart rate 2020-04-14 08:17:47 74 /min Chace Britton Body temperature 2020-04-14 08:17:47 36.22 Radha Kody Britton Respiratory rate 2020-04-14 08:17:47 20 /min Kody Britton Oxygen saturation in 2020-04-14 08:17:47 98 /min Chace Britton Arterial blood by Pulse oximetry Body weight 2020-04-14 05:14:00 117.618 kg Chace Britton BMI 2020-04-14 05:14:00 37.21 kg/m2 Chace Britton Body height 2020-04-01 00:22:00 177.8 cm Chace Britton Procedures Procedure Date / Time Performing Clinician Source Performed BASIC METABOLIC PANEL 2020-04-14 04:30:00 Vu, Ronna Britton CBC WITH PLATELET AND 2020-04-14 04:30:00 Vu, Ronna Britton DIFFERENTIAL HEPATIC FUNCTION PANEL 2020-04-14 04:30:00 Vu, Ronna Jaimes on Religious MAGNESIUM LEVEL 2020-04-14 04:30:00 Vu, Ronna Mas Meth odist PHOSPHORUS LEVEL 2020-04-14 04:30:00 Vu, Ronna gamez PROTHROMBIN TIME WITH INR 2020-04-14 04:30:00 Vu, Ronna Britton ESTIMATED GFR 2020-04-14 04:30:00 DinakarKrishna Bo MANUAL DIFFERENTIAL 2020-04-14 04:30:00 DinakarKrishna XR PANOREX 2020-04-13 09:17:49 FaIlene gates Hi thodist BASIC METABOLIC PANEL 2020-04-13 05:20:00 Dinakar, Krishna Soriano HC COMPLETE BLD COUNT 2020-04-13 05:20:00 DinKrishna arroyo W/AUTO DIFF Bo MAGNESIUM LEVEL 2020-04-13 05:20:00 DinakarKrishna odist Bo HEPATIC FUNCTION PANEL 2020-04-13 05:20:00 DinjazmynrKrishna Religious Bo PHOSPHORUS LEVEL 2020-04-13 05:20:00 Dinakar, Krishna Mas Met vera Soriano PROTHROMBIN TIME WITH INR 2020-04-13 05:20:00 DinKrishna arroyo Bo ESTIMATED GFR 2020-04-13 05:20:00 DinjazmynrKrishna odist Bo BASIC METABOLIC PANEL 2020-04-12 05:40:00 Dinakar, Krishna mccray Religious Bo HC COMPLETE BLD COUNT 2020-04-12 05:40:00 Dinakar, Krishna mccray Religious W/AUTO DIFF Bo MAGNESIUM LEVEL 2020-04-12 05:40:00 Dinakar, Krishna Umaña odist Bo HEPATIC FUNCTION PANEL 2020-04-12 05:40:00 Dinakar, Krishna Jaimes on Religious Bo PHOSPHORUS LEVEL 2020-04-12 05:40:00 Dinakar, Krishna Mas Met hodrosanna Choprara PROTHROMBIN TIME WITH INR 2020-04-12 05:40:00 Dinakar, Krishna martel Religious Bo ESTIMATED GFR 2020-04-12 05:40:00 Dinakamone, Krishna Umaña odrosanna Bo HC COMPLETE BLD COUNT 2020-04-11 04:30:00 Dinakar, Krishna mccray Religious W/AUTO DIFF Bo PROTHROMBIN TIME WITH INR 2020-04-11 04:30:00 Dinakar, Krishna martel Religious Bo BASIC METABOLIC PANEL 2020-04-11 04:00:00 Dinakar, Krishna mccray Religious Bo MAGNESIUM LEVEL 2020-04-11 04:00:00 Dinakar, Krishna moy Bo HEPATIC FUNCTION PANEL 2020-04-11 04:00:00 Dinakar, Krishna Jaimes on Religious Bo PHOSPHORUS LEVEL 2020-04-11 04:00:00 Dinakar, Krishna Chorpara ESTIMATED GFR 2020-04-11 04:00:00 Dinakar, Krishna Choprara XR ABDOMEN 1 VW PORTABLE 2020-04-10 14:20:49 Ilene Berkowitz Religious US ABDOMINAL LIMITED 2020-04-10 12:30:00 Ilene Berkowitz on Religious HC COMPLETE BLD COUNT 2020-04-10 05:20:00 Dinakar, Krishna mccray Religious W/AUTO DIFF Bo PROTHROMBIN TIME WITH INR 2020-04-10 05:20:00 Dinakar, Krishna martel Religious Bo BASIC METABOLIC PANEL 2020-04-10 04:00:00 Dinakar, Krishna mccray Religious Bo MAGNESIUM LEVEL 2020-04-10 04:00:00 Dinakar, Krishna Umaña odist Bo HEPATIC FUNCTION PANEL 2020-04-10 04:00:00 Dinakar, Krishna Jaimes on Religious Bo PHOSPHORUS LEVEL 2020-04-10 04:00:00 Dinakamone, Krishna Choprara ESTIMATED GFR 2020-04-10 04:00:00 Dinakar, Krishna Umaña odist Bo BASIC METABOLIC PANEL 2020-04-09 06:03:00 Dinakar, Krishna mccray Religious Bo HC COMPLETE BLD COUNT 2020-04-09 06:03:00 Dinakar, Krishna Membrenoist W/AUTO DIFF Bo MAGNESIUM LEVEL 2020-04-09 06:03:00 Dinakar, Krishna Umaña odist Bo HEPATIC FUNCTION PANEL 2020-04-09 06:03:00 Dinakar, rKishna fernández Religious Bo PROTHROMBIN TIME WITH INR 2020-04-09 06:03:00 Dinakar, Krishna martel Religious Bo PHOSPHORUS LEVEL 2020-04-09 06:03:00 Dinakar, Krishna Choprara ESTIMATED GFR 2020-04-09 06:03:00 Dinakar, Krishna Choprara CBC WITH PLATELET AND 2020-04-08 05:20:00 Dinakar, Krishna mccray Religious DIFFERENTIAL Bo PROTHROMBIN TIME WITH INR 2020-04-08 05:20:00 Dinakar, Krishna Membrenoist Bo MANUAL DIFFERENTIAL 2020-04-08 05:20:00 DinakarKrishna Bo BASIC METABOLIC PANEL 2020-04-08 04:00:00 Dinakar, Krishna mccray Religious Bo MAGNESIUM LEVEL 2020-04-08 04:00:00 Dinakar, Krishna Umaña odist Bo HEPATIC FUNCTION PANEL 2020-04-08 04:00:00 Dinakar, Krishna Jaimes on Religious Bo PHOSPHORUS LEVEL 2020-04-08 04:00:00 Dinakar, Krishna Choprara ESTIMATED GFR 2020-04-08 04:00:00 Dinakar, Krishna Umaña odist Bo HC COMPLETE BLD COUNT 2020-04-07 01:35:00 BurnsTyshawn kwan on Religious W/AUTO DIFF BASIC METABOLIC PANEL 2020-04-07 01:35:00 BurnsTyshawn brown on Religious HEPATIC FUNCTION PANEL 2020-04-07 01:35:00 BurnsTyshawn kwan ton Religious MAGNESIUM LEVEL 2020-04-07 01:35:00 Tyshawn Burns Met hodist PROTHROMBIN TIME WITH INR 2020-04-07 01:35:00 Tyshawn Burns Religious ESTIMATED GFR 2020-04-07 01:35:00 Tyshawn Burns Met hodist HC COMPLETE BLD COUNT 2020-04-06 04:00:00 Tyshawn Burns on Religious W/AUTO DIFF BASIC METABOLIC PANEL 2020-04-06 04:00:00 Tyshawn Burns on Religious HEPATIC FUNCTION PANEL 2020-04-06 04:00:00 BurnsTyshawn kwan Religious MAGNESIUM LEVEL 2020-04-06 04:00:00 Tyshawn Burns Met hodist PROTHROMBIN TIME WITH INR 2020-04-06 04:00:00 Tyshawn Burns Religious ESTIMATED GFR 2020-04-06 04:00:00 Tyshawn Burns Met hodist HC COMPLETE BLD COUNT 2020-04-05 05:00:00 Tyshawn Burns on Religious W/AUTO DIFF BASIC METABOLIC PANEL 2020-04-05 05:00:00 BurnsTyshawn kwan on Religious HEPATIC FUNCTION PANEL 2020-04-05 05:00:00 Tyshawn Burns Religious MAGNESIUM LEVEL 2020-04-05 05:00:00 Tyshawn Burns Met hodist PROTHROMBIN TIME WITH INR 2020-04-05 05:00:00 Tyshawn Burns Religious ESTIMATED GFR 2020-04-05 05:00:00 Tyshawn Burns Met hodist HC COMPLETE BLD COUNT 2020-04-04 04:05:00 Tyshawn Burns on Religious W/AUTO DIFF BASIC METABOLIC PANEL 2020-04-04 04:05:00 BurnsTyshawn brownt on Religious HEPATIC FUNCTION PANEL 2020-04-04 04:05:00 BurnsTyshawn brown ton Religious MAGNESIUM LEVEL 2020-04-04 04:05:00 Girma Burnstor Mas Met hodist PROTHROMBIN TIME WITH INR 2020-04-04 04:05:00 Tyshawn Burns Religious ESTIMATED GFR 2020-04-04 04:05:00 Girma Burnstor Mas Met hodist HC COMPLETE BLD COUNT 2020-04-03 05:40:00 Tyshawn Burns on Religious W/AUTO DIFF BASIC METABOLIC PANEL 2020-04-03 05:40:00 BurnsTyshawn kwan on Religious HEPATIC FUNCTION PANEL 2020-04-03 05:40:00 Tyshawn Burns Religious MAGNESIUM LEVEL 2020-04-03 05:40:00 Tyshawn Burns Met hodist PHOSPHORUS LEVEL 2020-04-03 05:40:00 Tyshawn Burns Me thodist PROTHROMBIN TIME WITH INR 2020-04-03 05:40:00 Tyshawn Burns Religious ESTIMATED GFR 2020-04-03 05:40:00 Azeem Tyshawn Mas Met hodist TTE COMPLETE, W CONTRAST, 2020-04-02 22:00:00 Ilene Berkowitz W DOPPLER ([id number]) PROTEIN, MISC FLUID 2020-04-02 10:39:00 Ilene Berkowitz Religious ALBUMIN, MISC FLUID 2020-04-02 10:39:00 Ilene Berkowitz Religious AEROBIC CULTURE 2020-04-02 10:39:00 Vignesh Dennis Meth odist ANAEROBIC CULTURE 2020-04-02 10:39:00 Vignesh Dennis Me thodist GRAM STAIN 2020-04-02 10:39:00 Vignesh Dennis Meth odist CELL COUNT AND 2020-04-02 10:38:00 Vignesh Dennis Meth odist DIFFERENTIAL, BODY FLUID BODY FLUID CONSULT 2020-04-02 10:38:00 Vignesh Dennis ethodist US ABDOMINAL PARACENTESIS 2020-04-02 10:35:00 Vignesh Dennis [place] Religious IMAGING CBC WITH PLATELET AND 2020-04-02 04:40:00 Tyshawn Burns on Religious DIFFERENTIAL BASIC METABOLIC PANEL 2020-04-02 04:40:00 Tyshawn Burns on Religious HEPATIC FUNCTION PANEL 2020-04-02 04:40:00 Tyshawn Burns Religious MAGNESIUM LEVEL 2020-04-02 04:40:00 Tyshawn Burns Met hodist PHOSPHORUS LEVEL 2020-04-02 04:40:00 Tyshawn Burns Me thodist PROTHROMBIN TIME WITH INR 2020-04-02 04:40:00 Tyshawn Burns B NATRIURETIC PEPTIDE 2020-04-02 04:40:00 Tyshawn Burns on Religious ESTIMATED GFR 2020-04-02 04:40:00 Tyshawn Burns Met hodist MANUAL DIFFERENTIAL 2020-04-02 04:40:00 Tyshawn Burns Religious FIBRINOGEN 2020-04-01 15:00:00 Cecy Martinez Met hodist Shirley HC COMPLETE BLD COUNT 2020-04-01 05:00:00 Tyshawn Burns on Religious W/AUTO DIFF BASIC METABOLIC PANEL 2020-04-01 05:00:00 Tyshawn Burns on Religious HEPATIC FUNCTION PANEL 2020-04-01 05:00:00 Tyshawn Burns Religious MAGNESIUM LEVEL 2020-04-01 05:00:00 Tyshawn Burns Met hodist PHOSPHORUS LEVEL 2020-04-01 05:00:00 Tyshawn Burns Me thodist PROTHROMBIN TIME WITH INR 2020-04-01 05:00:00 Tyshawn Burns Religious HEMOGLOBIN A1C 2020-04-01 05:00:00 Tyshawn Burns Met hodist THYROID STIMULATING 2020-04-01 05:00:00 Tyshawn Burns Religious HORMONE T4 2020-04-01 05:00:00 Tyshawn Burns Met hodist B NATRIURETIC PEPTIDE 2020-04-01 05:00:00 Tyshawn Burns on Religious ALPHA FETOPROTEIN 2020-04-01 05:00:00 Tyshawn Burns M ethodist ESTIMATED GFR 2020-04-01 05:00:00 Tyshawn Burns Met hodist URINALYSIS, AUTOMATED WITH 2020-04-01 02:50:00 Tyshawn Burns Religious MICROSCOPY TROPONIN 2020-04-01 01:20:00 Bailee Ronna-Karen [facility] Chace Religious CT ABDOMEN PELVIS WO 2020-04-01 00:53:40 Dawn Figueredo CONTRAST Vanda US ABDOMINAL DOPPLER 2020-04-01 00:10:00 Dawn Figueredo Vanda US ABDOMEN COMPLETE 2020-03-31 23:30:00 Dawn Figueredo COVID-19 QUALITATIVE PCR 2020-03-31 22:33:00 Dawn Figueredo Religiousrosanna Dc PROTHROMBIN TIME WITH INR 2020-03-31 22:26:00 Dawn Figueredo Religiousrosanna Dc PARTIAL THROMBOPLASTIN 2020-03-31 22:26:00 Dawn Figueredo on Religious TIME (PTT) Vanda LIPASE LEVEL 2020-03-31 22:26:00 Dawn Figueredo Meth odist Vanda TROPONIN 2020-03-31 22:26:00 Bailee Ronna-[facility] Chace Religious HC COMPLETE BLD COUNT 2020-03-31 21:12:00 Bailee Ronna-[facility] Felecia prado Religious W/AUTO DIFF COMPREHENSIVE METABOLIC 2020-03-31 21:12:00 Bailee Ronna-[facility]aren [facility] Chace Religious PANEL TROPONIN 2020-03-31 21:12:00 Bailee Ronna-[facility] Chace Religious B NATRIURETIC PEPTIDE 2020-03-31 21:12:00 Morocho[facility] Felecia eve Membrenoist ESTIMATED GFR 2020-03-31 21:12:00 [facility] Religious US DUPLEX VENOUS LOWER 2020-03-31 20:50:00 Dawn Figueredo on Religious EXTREMITY BILATERAL Vanda XR CHEST 1 VW PORTABLE 2020-03-31 20:04:53 Dawn Figueredo on Religious Vanda ECG 12-LEAD 2020-03-31 18:22:47 [facility] Religious Plan of Care Planned Activity Planned Date Details Comments Source Future Scheduled 2016-01-29 65+ PNEUMOCOCCAL Mas Religious Test 00:00:00 VACCINE (1 of 1 - PPSV23) [code = 65+ PNEUMOCOCCAL VACCINE (1 of 1 - PPSV23)] Future Scheduled 2001 COLONOSCOPY SCREENING [place] Religious Test 00:00:00 [code = COLONOSCOPY SCREENING] Future Scheduled 2001 SHINGLES VACCINES (#1) H eve Religious Test 00:00:00 [code = SHINGLES VACCINES (#1)] Future Scheduled 1969 Hepatitis C screening [place] Religious Test 00:00:00 (procedure) [code = 403027078] Future Scheduled 1967 COVID-19 VACCINE (1 of H eve Religious Test 00:00:00 2) [code = COVID-19 VACCINE (1 of 2)] Encounters Start End Encounter Admission Attending Care Care Encounter Source Date/Time Date/Time Type Type Clinicians Facility Department ID 2020-03-31 2020-04-14 Inpatient AZEEM [facility] [id number] [place] 00:00:00 00:00:00 TYSHAWN [address] 2020-01-04 2020-01-04 Urgent Provider, [facility] [id number] 11:30:05 11:50:05 Care [facility] [id number] Care [place] [id number] [place] [id number] nal [address] 2019-12-25 2019-12-25 Urgent Provider, [facility] [id number] 17:09:55 18:06:32 Care [facility] [id number] [facility] [id number] [facility] [id number] nal 0[address] 2018-05-01 2018-05-01 Outpatient Robin Castillo [id number] 15:00:00 15:00:00 [facility] Clinics Results Test Description Test Time Test Comments Results Result Comments Source CBC with platelet and differential 2020-04-14 14:04:20 Test Item Value Reference Range Interpretation Comme nts WBC (test code = 93302-2) 8.57 See_Comment [ Automated message] The system which generated this result transmitted ref erence range: 4.50 - 11.00 k/ uL. The reference range was not used to interpret this result as normal/abnormal . RBC (test code = 31532-9) 2.57 m/uL 4.4-6 L HGB (test code = 718-7) 9.6 g/dL 14-18 L HCT (test code = 4544-3) 28.6 % 41-51 L MCV (test code = 787-2) 111.3 fL 82-100 H MCH (test code = 785-6) 37.4 pg 27-34 H MCHC (test code = 786-4) 33.6 g/dL 31-37 RDW - SD (test code = 24408-5) 60.5 fL 37-55 H MPV (test code = 92945-1) 10.5 fL 8.8-13.2 Platelet count (test code = 95 See_Comment L [Automated message] The system 60837-8) which generated this result transmitted ref erence range: 150 - 400 k/uL. The reference range was not u sed to interpret this result as normal/abnormal. Nucleated RBC (test code = 0.00 See_Comment [Automated message] The system 18716-1) which generated this result transmitted ref erence range: /100 WBC. The r eference range was not used to interpret this result as darling l/abnormal. Neutrophils (test code = 54.0 % 39-69 79413-3) Lymphocytes (test code = 19.0 % 25-45 L 69445-7) Monocytes (test code = 13.0 % 0-10 H 38559-7) Eosinophils (test code = 12.0 % 0-5 H 68886-4) Basophils (test code = 0.0 % 0-1 76627-8) Lab Interpretation (test code Abnormal = 73171-3) [place] [facility] [id number] 14:04:20 Test Item Value Reference Range Interpretation Comments Manual differential (test code = PERFORMED 68076-3) Neutrophils (test code = 54.0 % 39-69 86004-6) Lymphocytes (test code = 19.0 % 25-45 L 79306-9) Monocytes (test code = 42339-2) 13.0 % 0-10 H Eosinophils (test code = 12.0 % 0-5 H 65038-3) Basophils (test code = 03456-0) 0.0 % 0-1 Metamyelocytes (test code = 1 % 740-1) Myelocytes (test code = 749-2) 1 % Promyelocytes (test code = 0 % 783-1) Platelet slide review (test code Smauel slt decr = 50409-2) Toxic granulation (test code = Slight 803-7) Anisocytosis (test code = 702-1) Moderate Polychromasia (test code = Moderate 11674-4) Tear drop cells (test code = Occasional 7791-7) Ovalocytes (test code = 774-0) Moderate Enlarged platelets (test code = Moderate A 52963-5) Lab Interpretation (test code = Abnormal 75461-3) [place] [facility] metabolic [id number] 06:45:54 Test Item Value Reference Range Interpretation Comments Sodium (test code = 140 See_Comment [Automa almita message] 2951-2) The system [employer] generated this result transmit almita reference range : 135 - 148 mEq/L. Th e reference range was not used to interpret this result as normal/abnormal . Potassium (test code = 3.9 See_Comment [Aut omated message] 9083-3) The system [employer] generated this result transmit almita reference range : 3.5 - 5.0 mEq/L. Th e reference range was not used to interpret this result as normal/abnormal . Chloride (test code = 96 See_Comment L [Auto mated message] 2075-0) The system [employer] generated this result transmit almita reference range : 98 - 112 mEq/L. Th e reference range was not used to interpret this result as normal/abnormal . CO2 (test code = 32 See_Comment H [Automated message] 2027-10) The system [employer] generated this result transmit almita reference range : 24 - 31 mEq/L. The reference range was not used to interpret this result as normal/abnormal . Anion gap (test code = 12@ANIO See_Comment [Aut omated message] 55738-9) The system [employer] generated this result transmit almita reference range : 7 - 15 mEq/L. The reference range was not used to interpret this result as normal/abnormal . BUN (test code = 20 mg/dL 8-23 3094-0) Creatinine (test code = 1.15 mg/dL 0.7-1.2 0-0) Glucose (test code = 83 mg/dL 65-99 5-7) Calcium (test code = 9.2 mg/dL 8.8-10.2 50546-5) Lab Interpretation Abnormal (test code = 11662-4) [place] MethodistHepatic function [id number] 06:45:54 Test Item Value Reference Range Interpretation Comments Albumin (test code = 3.8 g/dL 3.5-5 1750-7) Total bilirubin (test 3.6 mg/dL 0-1.2 H code = 1974-03) Bilirubin direct (test 0.7 mg/dL 0-0.3 H code = 1967-08) Alkaline phosphatase 74 U/L 40-129 (test code = 6768-6) Protein (test code = 5.6 g/dL 6.3-8.3 L -[place] n 2885-2) 4.6-7.0 g /dL1 week 4.4-7.6 g/dL 7 months-1year 5.1-7.3 g/dL 1-2 years 5.6-7.5 g/dL>3 years 6.0-8.0 g/fG62-888 6.3-8. 3 g/dL ALT (test code = 1742-6) 25 U/L 5-50 AST (test code = 1920-8) 36 U/L 10-50 Lab Interpretation (test Abnormal code = 67698-9) [place] MethodistMagnesium [id number] 06:45:54 Test Item Value Reference Range Interpretation Comments Magnesium (test code = 86265-2) 2.0 mg/dL 1.6-2.4 Mas MethodistEstimated [id number] 06:45:54 Test Item Value Reference Range Interpretation Comments Estimated GFR (test 64 mL/min/1.73 m2 Tammie zhang Units code = 5488) InterpretationG 1 >=90 Normal or highG2 60-89 Mildly yzfgnkhqcE8x 45-59 Mildly to mode rately lazonvkgoH5w 30-44 Moderately to severely decreasedG4 15-29 Severely decre asedG5 <15 Kidn ey failureThe eGFR was calculated usin g the Chronic Kidney Disease Epidemiology Co llaboration (CKD-EPI) equat ion. Interpretation is based on recommendations of the National Kidney Foundation-Kidn ey Disease Outcomes Qualit y Initiative (NKF-KDOQI) pub lished in 2013. Mas MethodistPhosphorus [id number] 06:45:51 Test Item Value Reference Range Interpretation Comments Phosphorus (test code = 2777-1) 2.7 mg/dL 2.4-4.5 Mas TemiistProthrombin time with [id number] 06:25:18 Test Item Value Reference Range Interpretation Comments Prothrombin time (test 19.1 See_Comment H [Aut omated message] code = 5902-2) The system [employer] generated this result transmitted ref erence range: 11.5 - 1 4.5 sec. The refere nce range was not u sed to interpret this result as normal/abnor mal. INR (test code = 1.6 The Interna tional 20294-2) Normalized Rati o (INR) is a therapeuti c monitoring tool for patients who ar e stable on oral anticoagulant t herapy. An INR of 2.0-3 .0 is suggested for d eep vein thrombosis/pulm onary embolism. Lab Interpretation Abnormal (test code = 31874-4) [facility]ace MethodistXR [id number] 09:25:18Hm Interface, Radiology Results - 04/13/2020 9:28 AM CSTEXAMINATION: XR PANOREXCLINICAL HISTORY: missing teeth rule out infection in setting of hepatic encephalopathyCOMPARISON: NoneIMPRESSION:A single Panorex is provided.There are multiple missing teeth and multiple dental restorations.Noworrisome periapical lucency is identified.[facility]-[id number] MethodistXR Abdomen 1 Vw Portable 2020-04-10 14:24:12Hm Interface, Radiology Results Incoming - 04/10/2020 2:27 PM CSTEXAM: XR ABDOMEN 1 VW PORTABLECLINICAL: Nausea vomiting, rule out ileus or constipationCOMPARISON: None.IMPRESSION: 1.Nonspecific bowel gas pattern without radiographic evidence of obstruction.2.Mild degenerative changes in the spine.[facility]-[id number] MethodistUS Abdominal [id number] 13:01:07Hm Interface, Radiology Results Incoming - 04/10/2020 1:04 PM CSTEXAMINATION: US ABDOMINAL LIMITEDINDICATION: Ascites.COMPARISON: 04/02/2020IMPRESSION:Targeted ultrasound of the 4 quadrants of the abdomen was performed which demonstrates an overall small volume of ascites.[place] MethodistAnaerobic wxazbfj0652-20-52 08:46:23 Test Item Value Reference Range Interpretation Comments Anaerobic No anaerobic Specimen culture isolate organisms InformationS pecimen (test code = isolated. Source: Abdomin al 552) fluidSpecimen S ite: Abdomen [place] MethodistA[facility] [id number] 16:09:29 Test Item Value Reference Range Interpretation Comments Aerobic culture No growth Specimen isolate (test after 3 days. InformationSp ecimen code = 498) Source: Abdomin al fluidSpecimen S ite: Abdomen [place] MethodistTransthoracic Echocardiogram Complete, (w Contrast, Strain and 3D if needed)2020-04-03 15:24:00Interface, Radiology Results In - 04/03/2020 3:25 PM OIL PROCESS [facility] Echocardiography Report [id number]Name: SRIKANTH TOMAS Pat.ID: [id number].Date: 04/02/2020 Refer.MD: VIGNESH DENNIS MD Exam Time: 9:19:00 PM Study Type:Routine Echo Height: 70in Weight: 320lb BSA: 2.55 m2 Age: 12 1950,70Y Sex: MALE BP: 123/56 HR: 81 bpm Sonogrphr: YOMI Montoya /Mikala Krishna, MDPat. Stat.:Inpatient Room: [place] [address] Study Status:Final Echo Event ID:[id number] Order ID: [id number] Reason for Study:fluid overload rule out cardiac etiology, cardiacmurmurProcedures: 2D Echo, Colorflow Doppler, Strain, Portable, IntravenousLumason ContrastRace: D --------- SUMMARY: LV size is normal.Biplane LV EF is 68%. FINDINGS: -LV:LV size is normal. Biplane LV ejection fraction= 68% LV EF is normal. Overall wall motion is normal.RV: RV size is normal. RV free wall strain is normal at -27.8%. RV systolic function is normal.LA: LA volume is moderately enlarged. LA reservior strain is normal at 43.9%.RA: RA size is normal.AO: Aortic root diameter is normal.YOVANY: No pericardial effusion.AV: Mild thickening and calcification of AV leaflets.MV: Mild mitral annular calcification.PV: Pulmonic valve not well seen.TV: No structural TV abnormalities noted.Other: Insufficient TR jet to estimate PA systolic pressure. MEASU REMENTS: 2DParasternal Long Wilson Ao An 2 cm LVPWd 1 cm Ao Rtd 3.3 cm Index 1.3 cm/m2 LA Ds 4.5 cm IVSd 1 cm RWT 0.4 LVIDd 5.5 cm Index 2.1 cm/m2 LV Mass 211.3 g (122-174) LVIDs 3.2 cm LVM Index 82.9 g/m2 LV%fs 41.6 % LVOT 2 cm LV EF Biplane LVEDV 146 ml (65-193) Index 57.2 ml/m2 LV CI 3.1 l/m/m2 LVESV 46.7 ml Index18.3 ml/m2 LV SV 99.3 ml LV EF 68 % (63-77) HR81 bpm LV CO 8 l/min LA Sng Plane LA Area 28.4 cm2 (8.8-23.4) LA Vol 111.1 ml Index 43.6 ml/m2 LA LngAx 5.9 cm RA Sng Plane RA Vol 27 ml Index 10.6 ml/m2 RA LngAx 5.6 cm RA Area 13.5 cm2 (8.3-19.5)LVOT LVOT Area 3.2 cm2 DOPPLERAVFor Flow/LIZETTE AV pkVel 188.7 cm/s (100-170) AV AC/ET 0.2 AV mnVel 153.3 cm/s AV TVI 36.5 cm AV pkPG 14.2 mmHg AVpkAcRt 6393.3 cm/s2 AV Mean G 10.5 mmHg AV DeRt 791.4 cm/s2 AV ET 238 msec AV AC 57 msec (83-118)Aortic Valve AV DI 0.9 AV Area 2.8 cm2 (3-5)LVOT For Flow LVOT TVI 32.5 cm LVOTpkPG 10.2 mmHg LVOTpkVel 159.6 cm/s LVOTmnPG 6.3 mmHgLVOT LVOT SV 103.5 ml LVOT CO 8.4 l/min SVi 40.6 ml/m2 LVOT CI 3.3 l/m/m2LVOT Stroke Vol & CardiacOut HR 81 bpm Mitral Valve MV pkE 117.5 cm/s (60-130) MV pkA 105.2 cm/s Signed 04/03/2020 03:24 PMSherif Keisha Deluna MethodistCell count and differential, body fluid 2020-04-03 13:57:23 Test Item Value Reference Range Interpretation Comments [facility] [place] Paracentesis (test code = 63070-6) Color, fluid (test Yellow code = 6824-7) Appearance, fluid Slightly hazy (test code = 9335-1) RBC, fluid (test SEE COMMENT See_Comment 1+ (0 - 500 RBC/CMM) code = 17216-1) [Automated m essage] The system Naveraic h generated this result transmit almita reference range : /CMM. The refer ence range was not u sed to interpret th is result as normal/abnormal . Nucleated cells, 424 See_Comment [Automated message] fluid (test code = The syste m which 53109-0) generated this result transmit almita reference range : /CMM. The refer ence range was not u sed to interpret th is result as normal/abnormal . Fluid mononuclear See Diff cell (test code = 1407) Neutrophils, fluid 46 % (test code = 39632-5) Lymphocytes, fluid 4 % (test code = 64194-2) Mesothelial cells, 13 % fluid (test code = 36703-0) Macrophages, fluid 37 % (test code = 23575-1) [facility] wwfchht5750-94-02 13:57:23 Test Item Value Reference Range Interpretation Comments Body fluid consult Done Reactive mesthelial cells (test code = 987) with mixed inflammation( including macro phages, neutrophils and lymphocytes.Rev iewed by Ruth Sosa M.D. [facility] HospitalGram qbshn2592-29-57 18:42:13Gram stain isolateFew WBC'sNo organisms seen Comment: Specimen InformationSpecimen Source: Abdominal fluidSpecimen Site: Abdomen [facility] [id number] 15:53:03Hm Interface, Radiology Results Incoming - 04/02/2020 3:56 PM CSTPROCEDURE:Ultrasound-guided paracen tesisAttending Physician: Dr. CedilloPerforming Clinician:Ccey Martinez [facility] Assistants:NonePre Procedure Diagnosis:ASCITESPost Procedure Diagnosis:ASCITESIndication:AscitesComplications:No immediate post procedure complications.IMPRESSION:1.Technically successful ultrasound-guided diagnostic/therapeutic paracentesis.2.There is a moderate simple ascites.3.No residual ascites is seen on postprocedure ultrasound.PLAN:The patient will be monitored in the recovery area for approximately 30 minutesto evaluate vital signs and blood pressure. PROCEDURE SUMMARY:Access of the peritoneal space using ultrasound guidancePROCEDURE DETAILS:Pre-procedure:Comparison studies: NoneWritten and informed consent for the procedure and monitored conscious sedation was obtained from the patient.Prophylactic antibiotics: NonePreparation: Theright upper quadrant of the abdomen was prepared and draped using all elements of maximal sterile barrier technique including sterile gloves, sterile gown, catheter, mask, large sterile sheet, sterile ultrasound probe cover, hand hygiene and cutaneous antisepsis using chlorhexidine.Anesthesia/Sedation:Level of anesthesia: None (Lidocaine only)Medications used: 1% lidocaineDuration of anesthesia/sedation: N/AAccess:Local anesthesia was administered. The right upper quadrant was evaluated with preprocedure ultrasound. Real-time ultrasound was used to visualize needle entry into the peritoneal space.Access technique:One-step CatheterParacentesis:Fluid Color: YellowVolume Removed: 3200 mLFluid Analysis: The fluid was sent for laboratory tests ordered by the primary teamClosure:The One-step catheterwas removed and hemostasis was achieved with manual compression. A sterile dressing was applied.Additional details:Estimated blood loss: Less than 10 [facility]-[id number] [facility] [place] 2020-04-02 12:27:20 Test Item Value Reference Range Interpretation Comments Fluid type (test Ascitic code = 76787-9) Albumin, fluid <0.2 g/dL The reference interval(s) (test code = and other metho d performance 1747-5) specifications have not been established for this body fluid. The test results must be integrated i nto the clinical contex t for interpretation. This test has been modified f rom the manufacturers i nstructions. The performance characteristics were determined by Felecia sevilla in a manner consiste nt with CLIA requirements. This test has not been cleare d or approved by the U.[place] Gali d and Drug Administration. Chace BrittonProtein, [facility] [id number] 12:27:20 Test Item Value Reference Range Interpretation Comments Fluid type (test Ascitic code = 04047-1) Protein, fluid 0.8 g/dL The reference interval(s) (test code = and other metho d 2881-1) performance spe cifications have not been e stablished for this body f luid. The test results mu st be integrated into the clinical contex t for interpretation. This test has been modifi ed from the manufacturers i nstructions. The performanc e characteristics were determined by Felecia sevilla in a manner consiste nt with CLIA requirements. This test has not been cl eared or approved by the U.S. Food and Drug Admini stration. Chace BrittonB natriuretic nwkqavz1852-85-31 10:10:42 Test Item Value Reference Range Interpretation Comments BNP (test code = 19833-7) 136 pg/mL 0-100 H Lab Interpretation (test code = Abnormal 04019-6) Chace BrittonBtazfqcefRtgdxkynlf7416-04-26 16:25:45 Test Item Value Reference Range Interpretation Comments Fibrinogen (test code = 53163-1) 228 mg/dL 200-450 Chcae BrittonECG 12 unjh6437-26-96 16:11:35 Test Item Value Reference Range Interpretation Comments Ventricular rate 75 (test code = 253) Atrial rate (test 75 code = 255) TX interval (test 166 code = 266) QRSD interval (test 116 code = 260) QT interval (test 394 code = 264) QTC interval (test 439 code = 265) P axis 1 (test code = 16 267) QRS axis 1 (test code -23 = 268) T wave axis (test 66 code = 270) EKG impression (test Normal sinus rhythm-Left code = 273) ventricular hypertrophy with QRS widening and repolarization abnormality-Abnormal ECG-No previous ECGs available- Chace BrittonHemoglobin [id number] 08:24:10 Test Item Value Reference Range Interpretation Comments Hemoglobin A1C (test 4.5 % 4-5.6 HbA1c c utoffs for code = 58246-2) diagnosing d iabetes:4.0% - 5.6% = normal 5.7% - 6.4% = increase d risk for diabetes (prediabetes)9> =6.5% = pqhdmgne3Xqxfj for glycemic contro l (ADA 2016)< 7.0% Ta rget for non tuan lts with diabetes. More or less stringent targe ts may be appropriate for individual gaby ents. <7.5% Target for Children and ad olescents with type 1 sonia betes. Chace MembrenoistAlpha brgyvwmwyrv4615-74-61 06:10:58 Test Item Value Reference Range Interpretation Comments Alpha fetoprotein 1.9 ng/mL 0-8.3 The Unique 8000 AFP (test code = immunoassay was used. 34629-9) Results obtaine d with different assay methods or kits should not be used interchang eably and may be differen t. Chace BrittonWxobysbunO77171-17-26 06:05:31 Test Item Value Reference Range Interpretation Comments T4 (test code = 3026-2) 4.0 ug/dL 4.5-11.7 L Lab Interpretation (test code = Abnormal 98980-9) Chace BrittonThyroid stimulating zhpfzki9912-69-05 06:05:31 Test Item Value Reference Range Interpretation Comments TSH (test code = 3016-3) 4.63 See_Comment H [A utomated message] The system YaBattle generated this result transmitted ref erence range: 0.27 - 4 .20 uIU/mL. The ref erence range was not u sed to interpret this result as normal/abnor mal. Lab Interpretation (test Abnormal code = 10176-5) Chace BrittonCOVID-19 qualitative [id number] 04:32:42 Test Item Value Reference Range Interpretation Comments Interpretation (test Negative results do code = 5752196) not preclude 2019-nCoV infection and should not be used as the sole basis for treatment or other patient management decisions. Negative results must be combined with clinical observations, patient history, and epidemiological information. COVID-19 qualitative Not-Detected Not-Detected PCR result (test code = 23523-9) COVID-19 qualitative See link below for C ase Number: PCR (test code = PDF Lab Report [id number]) [place] MethodistUrinalysis, automated with jqycucxcpg8235-66-16 03:55:01 Test Item Value Reference Range Interpretation Comments Color, UA (test code = Straw 5778-6) Appearance, UA (test Clear code = 5767-9) Specific gravity, UA 1.011 1.001-1.035 (test code = 5811-5) pH, UA (test code = 6.0 5.0-8.5 5803-2) Protein, UA (test code = Negative Negative 33558-1) Glucose, UA (test code = Negative Negative 37871-1) Ketones, UA (test code = Negative Negative 2514-8) Bilirubin, UA (test code Negative Negative = 5770-3) Blood, UA (test code = Negative Negative 5794-3) Nitrite, UA (test code = Negative Negative 5802-4) Urobilinogen, UA (test <2.0 <2.0 code = 72690-6) Leukocyte esterase, UA Negative Negative (test code = 5799-2) Epithelial cells, UA <1 See_Comment [Autom ated message] (test code = 5787-7) The sys tem which generated this result transmit almita reference range : /HPF. The refer ence range was not u sed to interpret th is result as normal/abnormal . WBC, UA (test code = 2 See_Comment H [Autom ated message] 5821-4) The system Naveraic GigsTime generated this result transmit almita reference range : 0 - 1 /HPF. The reference range was not used to interpret this result as normal/abnormal . RBC, UA (test code = 2 See_Comment [Autom ated message] 53457-0) The system Naveraic h generated this result transmit almita reference range : 0 - 5 /HPF. The reference range was not used to interpret this result as normal/abnormal . Bacteria, UA (test code None seen None seen = 77953-3) Hyaline casts, UA (test 3 See_Comment [Au tomated message] code = 5796-8) The system SimpleMist generated this result transmit almita reference range : /LPF. The refer ence range was not u sed to interpret th is result as normal/abnormal . Yeast, UA (test code = None seen 78163-5) Yeast with pseudohyphae, None seen UA (test code = 25743-9) Lab Interpretation (test Abnormal code = 78020-0) Chace DavisHbkgtrrrgXojtqhcx3381-90-46 02:10:12 Test Item Value Reference Range Interpretation Comments Troponin (test code 0.008 ng/mL 0-0.04 In patie nts suspected = 48581-8) of having a marnie cardial infarction, antonio de los santos with all other appro priate clinical measur es and actions includi ng ECG and other diagn ostics as appropriate, measure Ultra TnI at 0 hrs and at 3 hrs.Myocar dial infarction VERY LIKELYThe 0 hr TnI level is > 0.10 ng/mL -------- -------- -------- --------Myocard ial infarction LIKE LYThe 0 hr TnI level is > 0.04 ng/mL and 3 hr level is increased or de creased by at least 0.0 20 ng/mL -------- -------- -------- ---Myocardial infarction VERY UNLIKELYBoth th e 0 hr and 3 hr TnI le vels <= 0.04 ng/mL(with in normal limits) OR 0 hr is > 0.04 ng/mL and 3 hr is increased OR decreased by le ss than 0.020 ng/mL Chace Le Abdominal Uartnif5945-72-69 01:18:53Hm Interface, Radiology Results - 04/01/2020 1:22 AM CSTEXAMINATION: US ABDOMINAL DOPPLERC LINICAL HISTORY: r o thrombusCOMPARISON: Complete abdominal ultrasound performed on the same dayTECHNIQUE: Ortiz scale, color Doppler and spectral waveform analysis of the hepatic vasculature.IMPRESSION:1. PORTAL VEINS: *Main portal vein: The main portal vein is patent. Portal vein velocity is 16.6 c m/sec. The main portal vein measures 0.8 cm.*Left Portal Vein: The left portal vein is patent.*RightPortal Vein:The right portal vein is patent.2. HEPATIC VEINS: *Right Hepatic Vein: The right hepaticvein is patent.*Middle Hepatic Vein: The middle hepatic vein is patent.*Left Hepatic Vein: The left hepatic vein is patent.3. HEPATIC ARTERIES: *Right Hepatic Artery: The right hepatic artery is patent. Peak systolic velocity is 62.5 cm/s.*Left Hepatic Artery: The left hepatic artery is patent. Peak systolic velocity is 36.6 cm/s.*Proper hepatic artery: The proper hepatic artery is patent. Peak systolic velocity is 167.0 cm/s.4. IVC: The inferior vena cava is patent.5. SMV: The superior mesenteric vein is not well seen.6. SPLENIC ARTERY/VEINS: *Splenic Artery/Vein at Spleen: The splenic artery/vein at the spleen are patent. Splenic artery peak systolic velocity is 75.8 cm/s.*Splenic Artery/Vein at Midline: The splenic artery/vein at the midline are not well seen.[facility] Abdomen Omtlacgn5959-86-98 01:13:36Hm Interface, Radiology Results 04/01/2020 1:16 AM CSTEXAM: US ABDOMEN COMPLETECLINICAL DATA: distentionCOMPARISON: CT abdomen/pelvis 04/01/2020FINDINGS: LIVER: The liver has a nodular contour with coarsened echotexture, consistent with cirrhosis. No focal hepatic lesion is identified.MPV: Doppler evaluation of the portal vein demonstrates normal hepatopetal flow. 0.9 cm.GALLBLADDER: The gallbladder contains multiple stones. No gallbladder wall thickening is identified.CBD: 5.4 mm.PANCREAS: The visualized portions of the pancreas are within normal limits.SPLEEN: The spleen is homogeneous and not enlarged measuring 12.0 cmRIGHT KIDNEY: The right kidney is normal in size and echogenicity. There is no evidence of mass, calculi, or hydronephrosis. The right kidney measures 11.3 X5.6 X 5.8 cm.LEFT KIDNEY: The left kidney is normal in size and echogenicity. There is no evidence of mass, calculi, or hydronephrosis. The left kidney measures 12.3 X 6.7 X 5.0 cm.AORTA: The visualized upper abdominal aorta demonstrates no evidence of ectasia or aneurysm.IVC: The visualized portions of the inferior vena cava are unremarkable.ASCITES: Moderate volume ascites is noted.PLEURAL EFFUSION: There are no pleural effusions.IMPRESSION: Cirrhotic liver morphology with moderate volume ascites.Cholelithiasis without sonographic evidence of cholecystitis.1D2RAD_PS08[facility] MethodistCT Abdomen Pelvis Wo Contrast 2020-04-01 01:02:13Hm Interface, Radiology Results 04/01/2020 1:05 AM CSTExamination: CT ABDOMEN PELVIS WOCONTRASTClinical History: abd distentionComparison: None.Findings:CT scans are performed using radiation dose reduction techniques. Technical factors are evaluated and adjusted to ensure appropriate moderation of exposure. Automated dose management technology is applied to adjust radiation exposure while achieving a diagnostic quality image. CT imaging was performed with iterative reconstruction techniques and/or automated exposure control to reduce radiation dose.CT scan of the abdomen and pelviswas performed without intravenous contrast.The liver is nodular in contour and small in size consistent with cirrhosis. Spleen, pancreas, and adrenal glands are unremarkable. Gallbladder shows gallstones but no gallbladder wall thickening.The kidneys are within normal limits without hydronephrosis or u rinary calculus.Moderate ascites is seen throughout the abdomen and pelvis. This limits evaluation for bowel wall thickening. The appendix is not visualized. No fat stranding is seen although is limited by the ascites. No free air is seen.Diffuse subcutaneous edema is noted. Right inguinal hernia is noted which contains ascites.The visualized lung bases are clear.The visualized bony structures show no acute abnormality.IMPRESSION:1. Hepatic cirrhosis with ascites and diffuse subcutaneous edema.2. Cholelithiasis without CT evidence for cholecystitis.3. Right inguinal hernia containing ascites.1D2RAD_PS01[facility] MethodistLipase pizqn7557-99-02 22:57:45 Test Item Value Reference Range Interpretation Comments Lipase (test code = 3040-3) 113 U/L 13-60 H Lab Interpretation (test code = Abnormal 96424-8) Mas MethodistPartial thromboplastin time, xwewnveqm5953-18-96 22:48:47 Test Item Value Reference Range Interpretation Comments PTT (test code = 35.6 See_[place] [address]-5) unfractionated heparin is61.0-112.0 se conds which corresponds to Anti-Xa0.3-0.7 U/ml. [Automat ed message] The system YaBattle generated this result tra nsmitted reference range : 23.0 - 36.0 sec. The refere nce range was not used to int erpret this result as darling l/abnormal. [place] MethodistComprehensive metabolic [id number] 22:12:52 Test Item Value Reference Range Interpretation Comments Sodium (test code = 138 See_Comment [Automa almita message] 936-2) The system YaBattle generated this result transmit almita reference range : 135 - 148 mEq/L. Th e reference range was not used to interpret this result as normal/abnormal . Potassium (test code = 5.2 See_Comment H [Aut omated message] 2583-3) The system YaBattle generated this result transmit almita reference range : 3.5 - 5.0 mEq/L. Th e reference range was not used to interpret this result as normal/abnormal . Chloride (test code = 102 See_Comment [Auto mated message] ) The system YaBattle generated this result transmit almita reference range : 98 - 112 mEq/L. Th e reference range was not used to interpret this result as normal/abnormal . CO2 (test code = 26 See_Comment [Automated message] 2027-10) The system YaBattle generated this result transmit almita reference range : 24 - 31 mEq/L. The reference range was not used to interpret this result as normal/abnormal . Anion gap (test code = 10@ANIO See_Comment [Aut omated message] 73004-7) The system YaBattle generated this result transmit almita reference range : 7 - 15 mEq/L. The reference range was not used to interpret this result as normal/abnormal . BUN (test code = 25 mg/dL 8-23 H 3094-0) Creatinine (test code = 1.32 mg/dL 0.7-1.2 H 2160-0) Glucose (test code = 112 mg/dL 65-99 H 2345-7) Calcium (test code = 8.9 mg/dL 8.8-10.2 38422-2) Protein (test code = 5.3 g/dL 6.3-8.3 L -[place] n 2885-2) 4.6-7.0 g/ dL1 week 4.4-7.6 g/dL7 months-1year 5.1-7.3 g/dL1 -2 years 5.6-7.5 g/dL>3 years 6.0-8.0 g/dL18- 150 6.3-8.3 g/dL Albumin (test code = 2.5 g/dL 3.5-5 L 1751-7) A/G ratio (test code = 0.9 0.7-3.8 1759-0) Alkaline phosphatase 115 U/L 40-129 (test code = 6768-6) AST (test code = 59 U/L 10-50 H 1920-8) ALT (test code = 44 U/L 5-50 1742-6) Total bilirubin (test 4.0 mg/dL 0-1.2 H code = 1974-2) Lab Interpretation Abnormal (test code = 15160-3) [facility] duplex venous lower zfbkgkzlq9037-23-90 21:27:00Interface, Radiology Results In - 03/31/2020 9:28 PM OIL PROCESS [facility] Lower Extremity Venous [address] [place] [address] Pat.Name: SRIKANTH TOMAS Pat.ID: [id number] .Date: 03/31/2020 Refer.MD: PHYSICIAN, EMERGENCY, Exam Time: 8:17:00 PM Study Type:LE Venous Age: 12 1950,70Y Sex: MALE Sonogrphr: Jose Burton, BREA, RCS Pat. Stat.:Inpatient Room: [facility] ED E24 Tape Vol: SHANIA, CPT - 4: 47004 Echo Event ID:[id number] Order ID: [id number] Reason for Study:Leg swelling , DVT suspected.Procedures: Colorflow, Grayscale/2D, Pulsed wave DopplerRace: D SUMMARY: DUPLEX SCAN OBSERVATIONS Deep Veins Superficial Veins Right Left Right Left GSV (prox) Normal NormalCFV Normal Normal (above knee)Femoral Normal Normal GSV (dist) Normal NormalProfunda Normal Normal (below knee)Popliteal Normal NormalPT (prox) Not Visualized Not visualized SSV Normal Not VisualizedPT (dist) Normal Normal Peroneal Not Visualized Not Visualized Gastrocs Normal NormalRIGHT: There is normal compressibility with no evidence of echogenicmaterial noted within the lumen of the visualized veins. Color flowand Doppler signals are normal.LEFT: There is normal compressibility with no evidence ofechogenic material noted within the lumen of the visualized veins.Color flow and Doppler signals are normal.PRELIMINARY FINDINGS:1. No evidence of venous thrombosis of t he visualized veins,bilaterally.2. Technically difficult study due to leg swelling, bilaterally.*Preliminary result reported to KATIANA Gaston 2100 on 03/31/20.PHYSICIAN INTERPRETATION: Venous examination of the both lower extremities demonstrated noevidence of venous thrombosis in the visualized vei ns. Normalcompressibility and augmentation of all veins visualized. ---FINDINGS: ----MEASUREMENTS: DOPPLERGeneral Anatomy General Anatomy 0.527 s Signed 03/31/2020 09:27 PMEsvin Manuel MD, [facility] MethodistXR Chest 1 Vw Portable 2020-03-31 20:15:52Hm Interface, Radiology Results Incoming - 03/31/2020 8:18 PM CSTStudy:XR CHEST 1 VW PORTABLEHistory: SOBCOMPARISON: None.IMPRESSION:A single view of the chest. There is no focal consolidation, pleural effusion or pneumothorax. Cardiac silhouette is normal. Visualized osseous structures are withoutacute abnormality.[facility]-[id number] Religious
[2020-04-24 15:27] LABS: Absolute Lymphocytes (CBC) 1.3 K/uL (0.7-4.9); Basophils % 0.9 % (0-1.3); Hematocrit 36.6 % (39.6-49.0); Lymphocytes % 21.2 % (15.3-44.8); MPV 8.5 fL (7.6-11.3); RBC Red Blood Cell Count 3.36 M/uL (4.33-5.43)
[2020-04-24] MEDS ORDERED: ONDANSETRON 4 MG/2 ML VIAL ONE ×2 (15:34→16:35)
[2020-04-24] MEDS ORDERED: PANTOPRAZOLE 40 MG INJ ONE (15:34)
[2020-04-24 15:42] LABS: Protime INR 1.33
[2020-04-24 15:45] LABS: Albumin 4.1 g/dL (3.4-5.0); Bilirubin Direct 1.2 mg/dL (0-0.2); Bilirubin Total 4.2 mg/dL (0.2-1.0)
[2020-04-24] MEDS: OCTREOTIDE 500 MCG in NA CHLORIDE 0.9% 500 ML IV SCH (16:00)
[2020-04-24] MEDS: PANTOPRAZOLE INJ 80 MG in NA CHLORIDE 0.9% 250 ML IV SCH (16:00)
[2020-04-24] MEDS ORDERED: LACTULOSE 20 GM/30 ML UCUP ONE (16:36)
[2020-04-24] MEDS ORDERED: CEFTRIAXONE/SWI 1gm 1 GM/10 ML SYR ONE (16:36)
--- NOTE | 2020-04-24 16:46 | ER ---
Nurse's Notes [facility] Name: Dorian Cruz Age: 70 yrs Sex: Male : 1950 Arrival Date: 04/24/2020 Time: 14:37 Bed 4 Private MD: Jan Kenney Diagnosis: Hepatic Encephalopathy;Hematemesis;Acute kidney failure;Other cirrhosis of liver Presentation: 04/24 14:51 Chief complaint: Patient states: Fatigue, AMS for 2 days. N/V for 1 day. Coronavirus ll1 screen: Client denies travel out of the [place] in the last 14 days. At this time, the client does not indicate any symptoms associated with coronavirus-19. Ebola Screen: Patient denies travel to an Ebola-affected area in the 21 days before illness onset. Initial Sepsis Screen: Does the patient meet any 2 criteria? No. Patient's initial sepsis screen is negative. Does the patient have a suspected source of infection? Yes: Acute abdominal pain. Risk Assessment: Do you want to hurt yourself or someone else? Patient reports no desire to harm self or others. Onset of symptoms was April 23, 2020. 14:51 Method Of Arrival: Wheelchair ll1 14:51 Acuity: NGOC 2 ll1 Historical: - Allergies: 14:55 Codeine; ll1 - PMHx: 14:55 Cirrhosis; Hepatitis; ll1 - PSHx: 14:55 Tonsillectomy; steel plate in left knee; ll1 - Immunization history:: Flu vaccine is up to date. - Social history:: Smoking status: Patient denies any tobacco usage or history of. Screenin:27 Abuse screen: Denies threats or abuse. Denies injuries from another. Nutritional ph screening: No deficits noted. Tuberculosis screening: No symptoms or risk factors identified. Fall Risk None identified. Assessment: 15:24 General: Appears in no apparent distress. comfortable, Behavior is calm, cooperative, ph appropriate for age. Pain: Denies pain. Neuro: Level of Consciousness is awake, alert, obeys commands, Oriented to person, place. Cardiovascular: Capillary refill < 3 seconds in bilateral fingers Patient's skin is warm and dry. Respiratory: Airway is patent Respiratory effort is even, unlabored. GI: Abdomen is non-distended, Reports nausea, vomiting, Patient currently denies abdominal pain. Derm: Skin is intact, Skin is jaundiced. Musculoskeletal: Circulation, motion, and sensation intact. Range of motion: intact in all extremities. 16:30 Reassessment: Patient appears in no apparent distress at this time. Patient and/or ph family updated on plan of care and expected duration. Pain level reassessed. Pt awake and alert, oriented to person and place, denies pain, c/o nausea, medication given, rectal tube inserted per ERP order for Lactulose administration, pt tolerated well. 18:38 Reassessment: Patient appears in no apparent distress at this time. Patient and/or ph family updated on plan of care and expected duration. Pain level reassessed. Pt resting quietly, denies nausea at this time. Vital Signs: 14:51 BP 121 / 86; Pulse 80; Resp 18; Temp 98.3; Pulse Ox 99% ; Weight 108.86 kg; Height 5 ll1 ft. 8 in. (172.72 cm); Pain 6/10; 17:16 BP 102 / 51 LA; Pulse 76; Resp 18; Pulse Ox 94% on R/A; ph 18:38 BP 98 / 47; Pulse 76; Resp 18; Pulse Ox 96% on R/A; ph 20:45 BP 101 / 52; Pulse 76; Resp 18; Pulse Ox 97% on R/A; mg2 14:51 Body Mass Index 36.49 (108.86 kg, 172.72 cm) ll1 17:16 pt lying on L side ph ED Course: 14:37 Patient arrived in ED. am2 14:37 Jan Kenney MD is Private Physician. am2 14:54 Triage completed. ll1 14:54 Arm band placed on Patient placed in an exam room, on a stretcher. ll1 15:00 Mojgan Fuller RN is Primary Nurse. ph 15:05 Tim Cotton PA is PHCP. jr8 15:05 Jaspal Garcia MD is Attending Physician. jr8 15:10 Inserted saline lock: 20 gauge in right antecubital area, using aseptic technique. ds4 Blood collected. 15:20 TS Sent. ds4 15:26 Patient has correct armband on for positive identification. Placed in gown. Bed in low ph position. Call light in reach. Side rails up X 1. monitor car operator on. Pulse ox on. NIBP on. Door closed. Noise minimized. Warm blanket given. 16:35 No provider procedures requiring assistance completed. rectal tube inserted for ph medication administration, pt tolerated well. Patient admitted, IV remains in place. 16:44 Jan Kenney MD is Hospitalizing Provider. jr8 17:53 Inserted saline lock: 20 gauge in left forearm, using aseptic technique. Blood ss collected. Administered Medications: 15:23 Drug: Zofran (Ondansetron) 4 mg Route: IVP; Site: right antecubital; ph 18:39 Follow up: Response: No adverse reaction ph 15:24 Drug: ProTONIX 40 mg Route: IVP; Site: right antecubital; ph 18:39 Follow up: Response: No adverse reaction ph 15:59 Drug: ProTONIX 8 mg/hr Route: IV; Rate: 25 ml/hr; Site: right antecubital; ph 18:40 Follow up: Response: No adverse reaction; IV Status: Infusion continued upon admission ph 15:59 Drug: Octreotide Infusion (50 mcg/hr) - (Octreotide 500 mcg, NS 0.9% 500 ml) Route: IV; ph Rate: 50 ml/hr; Site: right antecubital; 18:40 Follow up: Response: No adverse reaction; IV Status: Infusion continued upon admission ph 16:30 Drug: Zofran (Ondansetron) 4 mg Route: IVP; Site: right antecubital; ph 18:40 Follow up: Response: No adverse reaction; Nausea is decreased ph 17:00 Drug: Lactulose 200 grams Route: [place]; ph 18:40 Follow up: Response: No adverse reaction ph 17:30 Drug: Rocephin 1 grams Route: IV; Rate: calculated rate; Site: left forearm; ph 17:45 Follow up: Response: No adverse reaction; IV Status: Completed infusion ph Outcome: 16:45 Decision to Hospitalize by Provider. jr8 20:54 Admitted to Med/surg accompanied by tech, via stretcher, room 215, with chart, Report mg2 called to JENNIFER Gibson 20:54 Condition: stable 20:54 Instructed on the need for admit, Demonstrated understanding of instructions. 20:55 Patient left the ED. mg2 Signatures: Stefany Mcconnell RN RN ss Tim Cotton PA PA jr8 Andres Salomon ds4 Mojgan Fuller RN RN ph Nhi Gutierrez am2 Robin Oliver RN RN mg2 Jose Maria RN RN ll1 Corrections: (The following items were deleted from the chart) 17:19 17:16 Pulse 76bpm; Resp 18bpm; Pulse Ox 94% RA; ph ph
--- NOTE | 2020-04-24 16:46 | EDPHYS ---
Physician Documentation [facility] Name: Dorian Cruz Age: 70 yrs Sex: Male : 1950 Arrival Date: 04/24/2020 Time: 14:37 Bed 4 Private MD: Jan Kenney ED Physician Jaspal Garcia HPI: 04/24 15:08 This 70 yrs old Male presents to ER via Wheelchair with complaints of jr8 Vomiting, Altered Mental Status. 15:08 The patient presents to the emergency department with vomiting, that is intermittent. jr8 Onset: The symptoms/episode began/occurred today. Possible causes:. Patient presents after family was called by PCP to bring him to ED. She reports he was LKN Tuesday04/22/20. He has since become altered and started vomiting. She reports he was recently at [facility] and removed 6L of fluid off of him. PMHx: Liver cirrhosis . Historical: - Allergies: 14:55 Codeine; ll1 - PMHx: 14:55 Cirrhosis; Hepatitis; ll1 - PSHx: 14:55 Tonsillectomy; steel plate in left knee; ll1 - Immunization history:: Flu vaccine is up to date. - Social history:: Smoking status: Patient denies any tobacco usage or history of. ROS: 15:11 Cardiovascular: Negative for chest pain, palpitations, and edema, Respiratory: Negative jr8 for shortness of breath, cough, wheezing, and pleuritic chest pain. 15:11 Eyes: Positive for icterus, sunken appearance. 15:11 Abdomen/GI: Positive for vomiting, abdominal distension, hematemesis. 15:11 Neuro: Positive for altered mental status. Exam: 15:12 Cardiovascular: Regular rate and rhythm with a normal S1 and S2. No gallops, murmurs, jr8 or rubs. Normal PMI, no JVD. No pulse deficits. Respiratory: Lungs have equal breath sounds bilaterally, clear to auscultation and percussion. No rales, rhonchi or wheezes noted. No increased work of breathing, no retractions or nasal flaring. 15:12 Eyes: Periorbital structures: are sunken, Sclera: icterus. 15:12 Abdomen/GI: Inspection: distension, that is mild, Bowel sounds: normal, in all quadrants, Palpation: soft, in all quadrants, Liver: is enlarged. 15:12 Skin: juandice. 15:12 Neuro: Orientation: to person, Mentation: responsive to voice confused, Memory: Vital Signs: 14:51 BP 121 / 86; Pulse 80; Resp 18; Temp 98.3; Pulse Ox 99% ; Weight 108.86 kg; Height 5 ll1 ft. 8 in. (172.72 cm); Pain 6/10; 17:16 BP 102 / 51 LA; Pulse 76; Resp 18; Pulse Ox 94% on R/A; ph 18:38 BP 98 / 47; Pulse 76; Resp 18; Pulse Ox 96% on R/A; ph 20:45 BP 101 / 52; Pulse 76; Resp 18; Pulse Ox 97% on R/A; mg2 14:51 Body Mass Index 36.49 (108.86 kg, 172.72 cm) ll1 17:16 pt lying on L side ph MDM: 15:05 Patient medically screened. [facility] 15:15 Data reviewed: vital signs, lab test result(s), EKG. Data interpreted: patient monitor: [facility] rate is 80 beats/min, rhythm is normal sinus rhythm, Pulse oximetry: on room air is 99 %. Interpretation: normal. 04/24 15:06 Order name: Basic Metabolic Panel; Complete Time: 15:47 8 04/24 15:06 Order name: CBC with Diff; Complete Time: 15:37 04/24 15:06 Order name: Hepatic Function; Complete Time: 15:47 8 04/24 15:06 Order name: Lipase; Complete Time: 15:47 jr8 04/24 15:06 Order name: TS; Complete Time: 16:43 jr8 04/24 15:06 Order name: Protime (+inr); Complete Time: 16:01 jr8 04/24 15:06 Order name: Ptt, Activated; Complete Time: 16:01 jr8 04/24 15:06 Order name: AMMONIA; Complete Time: 15:44 jr04/24 17:06 Order name: SARS-COV-2 RT PCR; Complete Time: 17:11 EDMS 04/24 18:42 Order name: ABO/RH no charge EDMS 04/24 15:06 Order name: IV Saline Lock; Complete Time: 15:14 jr8 04/24 15:06 Order name: Labs collected and sent; Complete Time: 15:14 04/24 15:06 Order name: EKG - Nurse/Tech; Complete Time: 15:47 04/24 15:06 Order name: EKG; Complete Time: 15:07 04/24 18:44 Order name: CONS Physician Consult EDMS Administered Medications: 15:23 Drug: Zofran (Ondansetron) 4 mg Route: IVP; Site: right antecubital; ph 18:39 Follow up: Response: No adverse reaction ph 15:24 Drug: ProTONIX 40 mg Route: IVP; Site: right antecubital; ph 18:39 Follow up: Response: No adverse reaction ph 15:59 Drug: ProTONIX 8 mg/hr Route: IV; Rate: 25 ml/hr; Site: right antecubital; ph 18:40 Follow up: Response: No adverse reaction; IV Status: Infusion continued upon admission ph 15:59 Drug: Octreotide Infusion (50 mcg/hr) - (Octreotide 500 mcg, NS 0.9% 500 ml) Route: IV; ph Rate: 50 ml/hr; Site: right antecubital; 18:40 Follow up: Response: No adverse reaction; IV Status: Infusion continued upon admission ph 16:30 Drug: Zofran (Ondansetron) 4 mg Route: IVP; Site: right antecubital; ph 18:40 Follow up: Response: No adverse reaction; Nausea is decreased ph 17:00 Drug: Lactulose 200 grams Route: [place]; ph 18:40 Follow up: Response: No adverse reaction ph 17:30 Drug: Rocephin 1 grams Route: IV; Rate: calculated rate; Site: left forearm; ph 17:45 Follow up: Response: No adverse reaction; IV Status: Completed infusion ph Disposition: 21:57 Co-signature as Attending Physician, Jaspal Garcia MD I agree with the assessment and kdr plan of care. Disposition: 04/24/20 16:45 Hospitalization ordered by Jan Kenney for Inpatient Admission. Preliminary diagnosis are Hepatic Encephalopathy, Hematemesis, Acute kidney failure, Other cirrhosis of liver. - Bed requested for Telemetry/MedSurg (Inpatient). - Status is Inpatient Admission. mg2 - Condition is Fair. - Problem is new. - Symptoms have improved. Signatures: Dispatcher [employer] EDMS Jaspal Garcia MD MD [facility] Tim Cotton PA PA jr8 Mojgan Fuller, RN RN Lien Denson, JENNIFER RN Robin Oliver RN RN [facility] Jose Maria RN RN ll1 Corrections: (The following items were deleted from the chart) 16:10 15:44 CORONAVIRUS+.BRZ ordered. [facility] 16:45 16:45 Hospitalization Ordered by Jan Kenney MD for Inpatient Admission. Preliminary jr8 diagnosis is Hepatic Encephalopathy; Hematemesis; Acute kidney failure. Bed requested for Telemetry/MedSurg (Inpatient). Status is Inpatient Admission. Condition is Fair. Problem is new. Symptoms have improved. jr8 20:02 16:45 04/24/2020 16:45 Hospitalization Ordered by Jan Kenney MD for Inpatient cg Admission. Preliminary diagnosis is Hepatic Encephalopathy; Hematemesis; Acute kidney failure; Other cirrhosis of liver. Bed requested for Telemetry/MedSurg (Inpatient). Status is Inpatient Admission. Condition is Fair. Problem is new. Symptoms have improved. 8 20:55 20:02 04/24/2020 16:45 Hospitalization Ordered by Jan Kenney MD for Inpatient mg2 Admission. Preliminary diagnosis is Hepatic Encephalopathy; Hematemesis; Acute kidney failure; Other cirrhosis of liver. Bed requested for Telemetry/MedSurg (Inpatient). Status is Inpatient Admission. Condition is Fair. Problem is new. Symptoms have improved. cg
[2020-04-24] MEDS ORDERED: ONDANSETRON 4 MG/2 ML VIAL IV PRN (21:34)
[2020-04-25] MEDS: OCTREOTIDE 500 MCG in NA CHLORIDE 0.9% 500 ML IV SCH ×4 (02:00→22:00)
[2020-04-25] MEDS: PANTOPRAZOLE INJ 80 MG in NA CHLORIDE 0.9% 250 ML IV SCH ×4 (02:00→22:00)
[2020-04-25 02:30] VITALS: BMI 33.4
[2020-04-25 04:34] LABS: Absolute Lymphocytes (CBC) 1.6 K/uL (0.7-4.9); Basophils % 0.5 % (0-1.3); Hematocrit 33.5 % (39.6-49.0); Lymphocytes % 24.4 % (15.3-44.8); MPV 8.8 fL (7.6-11.3); RBC Red Blood Cell Count 3.07 M/uL (4.33-5.43)
[2020-04-25 04:46] LABS: Albumin 3.6 g/dL (3.4-5.0); Bilirubin Direct 1.1 mg/dL (0-0.2); Bilirubin Total 4.7 mg/dL (0.2-1.0); Potassium 4.9 mmol/L (3.5-5.1); Protein, Total 6.2 g/dL (6.4-8.2)
[2020-04-25 05:40] LABS: Blood Morphology Comment NOTED (NOT SEEN); Macrocytosis 1+; Platelet Estimate ADEQ; White Blood Cell Scan OK (OK)
[2020-04-25] MEDS ORDERED: Ringers Lactate 1,000 ML IV ONE (14:44)
[2020-04-25] MEDS ORDERED: propofoL 200 MG/20 ML VIAL IV ONE (16:09)
[2020-04-25] MEDS ORDERED: LIDOCAINE 1% MPF 5 ML VIAL ONE (16:09)
[2020-04-25] MEDS ORDERED: Phenylephrine HCl 10 MG/ML 1 ML VIAL ONE (16:39)
--- NOTE | 2020-04-25 16:49 | ENDO RPT ---
[address], [address] EGD PROCEDURE REPORT EXAM DATE: 04/25/2020 PATIENT NAME: Dorian Cruz MR#: [id number] BIRTHDATE: 1950 ATTENDING: Andrew Botello Dr STATUS: inpatient - [facility] MANAGER: Homa Greene RN and Alcira Paz INDICATIONS: The patient is a 70 yr old Male here for an EGD due to upper G.I. bleeding and hematemesis PROCEDURE PERFORMED: EGD, diagnostic MEDICATIONS: Per Anesthesia. TOPICAL ANESTHETIC: none CONSENT: The patient understands the risks and benefits of the procedure and understands that these risks include, but are not limited to: sedation, allergic reaction, infection, perforation and/or bleeding. Alternative means of evaluation and treatment include, among others: physical exam, x-rays, and/or surgical intervention. The patient elects to proceed with this endoscopic procedure. DESCRIPTION OF PROCEDURE: During intra-op preparation period all mechanical medical equipment was checked for proper function. Hand hygiene and appropriate measures for infection prevention was taken. Procedure, possible complications, and alternatives including but not limited to the possibility of bleeding, perforation, tear, infection, sepsis, need for surgery, need for blood transfusion, and anesthesia related complications were explained to the patient. After the risks, benefits and alternatives of the procedure were thoroughly explained, Informed consent was verified, confirmed and timeout was successfully executed by the treatment team. The patient was placed in the left lateral position. The patient was anesthetized with topical anesthesia. Through the anesthetized oropharyngeal area, the scope was passed without any difficulty. The Pentax EG-[id number] ([id number]) endoscope was introduced through the mouth and advanced to the second portion of the duodenum. large gastric varix. The gastroscope was then slowly withdrawn and removed. 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 Severe gastritis was found in the antrum. Duodenitis was found in the bulb of the duodenum. ADVERSE EVENTS: There were no complications. IMPRESSIONS: 1. 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 2. Severe gastritis was found in the antrum 3. Duodenitis was found in the bulb of the duodenum RECOMMENDATIONS: 1. tertiary center for EUS guided coil placement and/or cyanoacrylate glue injection into large gastric varix (not available at this hospital) 2. acid suppression therapy 3. goal hgb 7-8 4. continue IV Octreotide and IV Cefriaxone REPEAT EXAM: Andrew Botello Dr eSigned: Andrew Botello Dr 04/25/2020 4:48 PM cc: Jan Kenney CPT CODES: ICD9 CODES: PATIENT NAME: Anthony Dorian Deidra MR#: [id number]
--- NOTE | 2020-04-25 16:52 | ENDO RPT ---
[address], [address] EGD PROCEDURE REPORT EXAM DATE: 04/25/2020 PATIENT NAME: Dorian Cruz MR#: [id number] BIRTHDATE: 1950 ATTENDING: Andrew Botello Dr STATUS: inpatient - [facility] CERTIFIED MEDICINE AIDE: Homa Greene RN and Alcira Paz INDICATIONS: The patient is a 70 yr old Male here for an EGD due to upper G.I. bleeding and hematemesis PROCEDURE PERFORMED: EGD, diagnostic MEDICATIONS: Per Anesthesia. TOPICAL ANESTHETIC: none CONSENT: The patient understands the risks and benefits of the procedure and understands that these risks include, but are not limited to: sedation, allergic reaction, infection, perforation and/or bleeding. Alternative means of evaluation and treatment include, among others: physical exam, x-rays, and/or surgical intervention. The patient elects to proceed with this endoscopic procedure. DESCRIPTION OF PROCEDURE: During intra-op preparation period all mechanical medical equipment was checked for proper function. Hand hygiene and appropriate measures for infection prevention was taken. Procedure, possible complications, and alternatives including but not limited to the possibility of bleeding, perforation, tear, infection, sepsis, need for surgery, need for blood transfusion, and anesthesia related complications were explained to the patient. After the risks, benefits and alternatives of the procedure were thoroughly explained, Informed consent was verified, confirmed and timeout was successfully executed by the treatment team. The patient was placed in the left lateral position. The patient was anesthetized with topical anesthesia. Through the anesthetized oropharyngeal area, the scope was passed without any difficulty. The Pentax EG-[id number] ([id number]) endoscope was introduced through the mouth and advanced to the second portion of the duodenum. large gastric varix. The gastroscope was then slowly withdrawn and removed. 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 Severe hemorrhagic gastritis was found in the antrum. Duodenitis was found in the bulb of the duodenum. ADVERSE EVENTS: There were no complications. IMPRESSIONS: 1. 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 2. Severe hemorrhagic gastritis in the antrum 3. Duodenitis in the bulb of the duodenum RECOMMENDATIONS: 1. tertiary center for EUS guided coil placement and/or cyanoacrylate glue injection into large gastric varix (not available at this hospital) 2. acid suppression therapy 3. goal hgb 7-8 4. continue IV Octreotide and IV Cefriaxone REPEAT EXAM: Andrew Botello Dr eSigned: Andrew Botello Dr 04/25/2020 4:52 PM Revised: 04/25/2020 4:52 PM cc: Jan Kenney CPT CODES: ICD9 CODES: PATIENT NAME: Dorian Cruz MR#: [id number]
--- NOTE | 2020-04-25 18:03 | P.CNS ---
Date of Consult: 04/25/20 History of Present Illness: Pt is a 70 y/o male with past medical hx of hypertension, cirrhosis presented with concerns of nasea and vomiting x 1 day. Pt was noted to have blood stained emesis. He was taken to see his pcp and was told to present to the ER for further evaluation. On arrival pt was noted to have an elevated creatinine of 1.9 compared to baseline of 1.0 to 1.1. Blood pressures in the 80s/60s. Renal has been consulted for SANYA. Of note, pt is s/p paracentesis. Hx is obtained per EMR as pt is currently altered Allergies Hydrocodone-Acetaminophen Adverse Reaction (Uncoded 09/12/18 11:19) CONFUSION Home Medications: Lactulose [Cephulac*] 30 ml PO Q8HR #2000 ml 02/23/20 Spironolactone [Aldactone*] 50 mg PO BID 03/12/20 - Past Medical/Surgical History Diabetic: No -: Cirrhosis secondary to hepatitis -: Left knee surgery Psychosocial/ Personal History: Patient lives at home alone - Social History Alcohol use: No CD- Drugs: No Caffeine use: Yes Place of Residence: Home Review of Systems is unable to be obtained (due to altered mentation) Physical Examination Temp Pulse Resp BP Pulse Ox 97.0 F 67 18 95/52 L 93 04/25/20 16:50 04/25/20 16:50 04/25/20 16:50 04/25/20 16:50 04/25/20 12:00 General: Confused HEENT: Atraumatic, Normocephalic, PERRLA Neck: Without JVD or thyroid abnormality Respiratory: Clear to auscultation bilaterally Cardiovascular: No edema, Normal pulses Gastrointestinal: Normal bowel sounds, Soft and benign, Non-distended Musculoskeletal: No tenderness Integumentary: No rashes Neurological: Other (limited due to inability to follow commands. Spontaneously moving upper extremites) Conclusions/Impression: Problems SANYA most likely secondary to prerenal etiology as well as ischemic atn from hypotensive episodes and GI bleed Hypotension Cirrhosis Nausea and comiting Plan Will start on albumin 25gm q 6h x 48h Hold all diuretics Start midodrine 10mg tid to maintain maps >65 Transfuse for hgb <7 Strict i/o. Avoid acei/arbs, contrast, nsaids, fleet enema. Renally dose adjust medications. Thank you for this interesting consult. Will continue to follow
[2020-04-25] MEDS: CEFTRIAXONE/SWI 1gm 1 GM/10 ML SYR IVP SCH (19:07)
--- NOTE | 2020-04-25 19:55 | PN ---
Date of Progress Note: 04/25/2020 The patient is down for EGD. Still hypotensive. I have not reinstituted following EGD __ which managed to introduce some more lactulose. However, according to the nurses, he is mor e stable today. HR/MODL Voice ID: [id number] Report ID: [id number]
[2020-04-25] MEDS: MIDODRINE HCL 5 MG TABLET PO SCH (20:32)
--- NOTE | 2020-04-25 20:34 | CON ---
Date of Consultation: 04/25/2020 Reason For Consultation: Hematemesis in the setting of cirrhosis. History Of Present Illness: This patient is a 70-year-old white male with history of cirrhosis secondary to hepatitis C and alcohol abuse in the past. This patient presented to the hospital with upper GI bleeding, hematemesis. Hemoglobin found to be 12.4 and down to 11.4 since admission yesterday. The patient has a history of cirrhosis, hepatitis C, alcohol abuse in the past, ascites, hepatic encephalopathy, tonsillectomy, and steel plate in the left knee. The patient is a poor historian. He has hepatic encephalopathy. Cannot recall, but it has been noted he had hematemesis prior to this admission. Past Medical History: Significant for: 1. Cirrhosis of the liver secondary to hepatitis C and alcohol abuse in the past. 2. Hepatitis C. It looks like he has been treated in the past. 3. Hepatic encephalopathy. 4. Ascites secondary to cirrhosis of liver. 5. Tonsillectomy. 6. Steel plate in the left knee. Allergies: HYDROCODONE, ACETAMINOPHEN, PROBABLY NORCO OR VICODIN. Medications: At home include Aldactone, Lasix. Medications in the hospital include IV octreotide, pantoprazole, Zofran, ceftriaxone. Social History: Single, never , no children. No tobacco. Alcohol, quit 3 months ago he states. Family History: Father of old age. Mother of complications of diabetes. Review of Systems: The patient has hematemesis and confusion. No seizures, syncope, lower extremity muscle aches, joint aches, backaches. He does have lower extremity edema. No depression or anxiety. He does have confusion however. Physical Examination: Vital Signs: The patient is 5 feet 8 inches, 220 pounds. BMI of 33.5 kg/sq m. Temperature 97 degrees Fahrenheit, pulse 67, respirations 18, blood pressure 95/52, O2 saturation 97%. General: He is an obese male, lying in bed, in no acute distress, active and talkative. HEENT: Normocephalic, atraumatic. Anicteric. Pupils equal, round, and reactive to light. Extraocular movements intact. Oropharynx is clear. Neck: Supple. No masses. Respirations: Clear to auscultation bilaterally. Cardiac: Regular rate and rhythm. No gallops or rubs. Abdomen: Positive bowel sounds. Soft, nondistended, mildly obese. Mild dullness in the flanks, but no real fluid wave. Extremities: No clubbing, cyanosis, or edema. Some lower extremity edema present, mild. Neurologic: Alert and oriented x2. Slightly confused. Laboratory Data: The patient has a white count of 6.6; hemoglobin of 11.4, down from 12.4 yesterday; hemoglobin of 34; MCV of 109; platelet count 115; polys of 59%; lymphocytes 24%; monocytes 13%; eosinophils 3%. PT of 15.3, INR 1.33, PTT 32.6. Sodium 139, potassium 4.9, chloride 102, bicarb 27, BUN 34, creatinine of 1.95, glucose 134, calcium 9.4, direct bilirubin 1.1, total bilirubin 4.7. AST 38, ALT 38, alkaline phosphatase 93. Ammonia 95, down from 130 yesterday. Total protein 6.2, albumin 2.5, globulin 2.6. Lipase 268, normal today. COVID- 19 testing was negative. No imaging performed. Impression: 1. Hematemesis with hemoglobin down to 11.4, slightly low with mild anemia. 2. Ammonia level of 130, down to 95 overnight with hepatic encephalopathy. 3. History of cirrhosis of liver secondary to hepatitis C, alcohol abuse, none in past 3 months with secondary ascites on diuretics and hepatic encephalopathy. He also has history of tonsillectomy and plate in left knee. Recommendations: 1. Proceed with EGD. Serial H and H. Transfuse to goal hemoglobin of 7 to 8. 2. Continue IV octreotide. Add IV ceftriaxone. 3. Check hepatitis C RNA PCR and alpha fetoprotein. CT scan was last done in January 2020, approximately 2 months ago. Negative imaging of liver. Addendum: EGD performed. The patient has large single gastric varices, severe hemorrhagic gastritis in the antrum of the stomach and some mild duodenitis of the bulb. He will need to continue PPI therapy for gastritis, but will need to be transferred to tertiary center where endoscopic ultrasound placement of coils and/or cyanoacrylate glue could be placed in the varices for therapy for this large gastric varix (therapy not available at this hospital). MICHELLE/AMPARO Voice ID: [id number] Report ID: [id number] MTDD
[2020-04-26] MEDS: LACTULOSE 20 GM/30 ML UCUP PO SCH ×3 (00:23→16:57)
[2020-04-26] MEDS: ALBUMIN HUMAN 25% 100 ML IV SCH ×5 (00:27→23:50)
[2020-04-26] MEDS: PANTOPRAZOLE INJ 80 MG in NA CHLORIDE 0.9% 250 ML IV SCH ×2 (02:28→14:43)
[2020-04-26] MEDS: OCTREOTIDE 500 MCG in NA CHLORIDE 0.9% 500 ML IV SCH ×3 (04:15→22:52)
[2020-04-26 05:16] LABS: Albumin 3.4 g/dL (3.4-5.0); Bilirubin Total 4.4 mg/dL (0.2-1.0); Potassium 4.3 mmol/L (3.5-5.1); Protein, Total 5.8 g/dL (6.4-8.2)
[2020-04-26] MEDS: MIDODRINE HCL 5 MG TABLET PO SCH ×3 (08:41→20:51)
[2020-04-26] MEDS: CEFTRIAXONE/SWI 1gm 1 GM/10 ML SYR IVP SCH (08:41)
--- NOTE | 2020-04-26 09:44 | P.PN ---
Subjective Date of Service: 04/26/20 Chief Complaint: nausea, vomiting, Pt seen today. Alert and oriented x 3. Wants to walk around. Feels very well. Review of Systems 10-point ROS is otherwise unremarkable Physical Examination - Vital Signs Temperature: 98.3 F Blood Pressure: 135/58 Pulse: 65 Respirations: 19 Pulse Ox (%): 97 - Physical Exam General: Alert, In no apparent distress HEENT: Atraumatic, PERRLA, EOMI Neck: Supple, JVD not distended Respiratory: Clear to auscultation bilaterally, Normal air movement Cardiovascular: Regular rate/rhythm, Normal S1 S2 Gastrointestinal: Normal bowel sounds, No tenderness Musculoskeletal: No tenderness Integumentary: No rashes Neurological: Normal speech, Normal tone, Normal affect Assessment & Plan Physician Review Additional Text: Problems SANYA most likely secondary to prerenal etiology as well as ischemic atn from hypotensive episodes and GI bleed Hypotension Cirrhosis GI bleed Nausea and comiting Plan C/w albumin 25gm q 6h x 48h Continue to hold all diuretics Continue midodrine 10mg tid to maintain maps >65. Transfuse for hgb <7 On protonix and octreotide for gi bleed Strict i/o. Avoid acei/arbs, contrast, nsaids, fleet enema. Renally dose adjust medications. Will continue to follow
--- NOTE | 2020-04-26 15:07 | P.PN ---
Subjective Date of Service: 04/26/20 Chief Complaint: Hematemesis, anemia, nausea, vomiting, Subjective: Improving (No N/V nor GI bleeding noted on therapy (PPI and IV Octreotide/Ceftriaxone). Tolerating CLs. Gastric varix therapy (cyanoacrylate glue and/or coils) not available at our hospital.) Review of Systems 10-point ROS is otherwise unremarkable General: Weakness (Improved. ) Neurological: Confusion (Improved. ) Physical Examination - Vital Signs Temperature: 98.1 F Blood Pressure: 121/59 Pulse: 65 Respirations: 18 Pulse Ox (%): 96 - Physical Exam General: Alert, In no apparent distress, Oriented x3, Cooperative HEENT: Atraumatic, Normocephalic, PERRLA, EOMI Neck: Supple Respiratory: Normal air movement Cardiovascular: Normal pulses, Edema (mild) Neurological: Normal speech Assessment And Plan - Current Problems (Diagnosis) (1) Hematemesis Current Visit: Yes Status: Acute (2) Upper GI bleeding Current Visit: Yes Status: Acute (3) Hepatic encephalopathy Current Visit: Yes Status: Acute (4) History of ascites Current Visit: Yes Status: Acute (5) Anemia Current Visit: Yes Status: Acute (6) Cirrhosis of liver Current Visit: No Status: Acute Qualifiers: Ascites presence: with ascites (7) Hyperammonemia Current Visit: No Status: Acute - Plan REC: 1) continue IV Protonix and Octreotide with wean off after 3 days 2) this coming week -> outpatient gastric varix therapy at tertiary center in [place], [place] (transfer not possible with [facility] crowded due to COVID- 19 and not accepting transfers at this time & he is stable tolerating po diet at this time. 3) continue Lactulose and use Xifaxan therapy as outpatient (with continued Lasix and Aldactone) 4) GI clinic f/u Physician Review Additional Text: Problems SANYA most likely secondary to prerenal etiology as well as ischemic atn from hypotensive episodes and GI bleed Hypotension Cirrhosis GI bleed Nausea and comiting Plan C/w albumin 25gm q 6h x 48h Continue to hold all diuretics Continue midodrine 10mg tid to maintain maps >65. Transfuse for hgb <7 On protonix and octreotide for gi bleed Strict i/o. Avoid acei/arbs, contrast, nsaids, fleet enema. Renally dose adjust medications. Will continue to follow
--- NOTE | 2020-04-26 20:54 | PN ---
Date of Progress Note: 04/26/2020 The patient seems somewhat better today, both physically and mentally. He underwent EGD. He is jessie g to require procedure, which is available in [place] after discussion with Dr. Botello. Once he is d ischarged, he will make arrangements to do this on an outpatient basis. In the meantime, he has not had a bowel movement. However, he is tolerating his diet. We will increase his diet and add to the lactulose as well. The possibility may be to discharge tomorrow. HR/MODL Voice ID: [id number] Report ID: [id number]
[2020-04-27] MEDS: PANTOPRAZOLE INJ 80 MG in NA CHLORIDE 0.9% 250 ML IV SCH ×2 (04:08→16:30)
[2020-04-27] MEDS: ALBUMIN HUMAN 25% 100 ML IV SCH ×3 (05:44→19:00)
[2020-04-27] MEDS: MIDODRINE HCL 5 MG TABLET PO SCH ×3 (09:23→21:42)
[2020-04-27] MEDS: CEFTRIAXONE/SWI 1gm 1 GM/10 ML SYR IVP SCH (09:23)
[2020-04-27] MEDS: LACTULOSE 20 GM/30 ML UCUP PO SCH ×3 (10:57→19:10)
[2020-04-27 12:49] LABS: Absolute Lymphocytes (CBC) 1.5 K/uL (0.7-4.9); Basophils % 0.5 % (0-1.3); Lymphocytes % 25.4 % (15.3-44.8); MPV 8.5 fL (7.6-11.3); RBC Red Blood Cell Count 2.99 M/uL (4.33-5.43)
[2020-04-27 13:08] LABS: Potassium 4.3 mmol/L (3.5-5.1)
[2020-04-27] MEDS: OCTREOTIDE 500 MCG in NA CHLORIDE 0.9% 500 ML IV SCH ×2 (13:50→21:43)
--- NOTE | 2020-04-27 16:56 | P.PN ---
Subjective Date of Service: 04/27/20 Chief Complaint: Hematemesis, anemia, nausea, vomiting, Subjective: Improving (No GI bleeding / hematemesis on therapy. He reports light brown stool today. Hgb stable at 11.1; has not required blood transfusion. Large gastric varix at GEJ/cardia & hemorrhagic gastritis in antrum, on IV Octreotide & Protonix. Sister (4/8 sibs) visiting today.) Review of Systems 10-point ROS is otherwise unremarkable General: Weakness (Improved.) Physical Examination - Vital Signs Temperature: 98.2 F Blood Pressure: 106/58 Pulse: 64 Respirations: 18 Pulse Ox (%): 97 - Physical Exam General: Alert, In no apparent distress, Oriented x3, Cooperative HEENT: Atraumatic, Normocephalic, PERRLA, EOMI, Scleral icterus Neck: Supple Respiratory: Normal air movement Cardiovascular: Normal pulses, Edema (mild in LEs) Gastrointestinal: Soft and benign, No tenderness, No rebound, No guarding Neurological: Normal speech Assessment And Plan - Current Problems (Diagnosis) (1) Hematemesis Current Visit: Yes Status: Acute Comment: None since admission. EGD revealed large gastric varix at GEJ/cardia and hemorrhagic gastritis in antrum. (2) Upper GI bleeding Current Visit: Yes Status: Acute (3) Hepatic encephalopathy Current Visit: Yes Status: Acute (4) History of ascites Current Visit: Yes Status: Acute (5) Anemia Current Visit: Yes Status: Acute (6) Cirrhosis of liver Current Visit: No Status: Acute Qualifiers: Ascites presence: with ascites (7) Hyperammonemia Current Visit: No Status: Acute - Plan REC: 1) continue IV Protonix and Octreotide with wean off after 3 days 2) this coming week -> outpatient gastric varix therapy at tertiary center in [place], [place] (transfer not possible with [facility] crowded due to COVID- 19 and not accepting transfers at this time & he is stable tolerating po diet at this time. 3) continue Lactulose and use Xifaxan therapy as outpatient (with continued Lasix and Aldactone) 4) GI clinic f/u Physician Review Additional Text: Problems SANYA most likely secondary to prerenal etiology as well as ischemic atn from hypotensive episodes and GI bleed Hypotension Cirrhosis GI bleed Nausea and comiting Plan C/w albumin 25gm q 6h x 48h Continue to hold all diuretics Continue midodrine 10mg tid to maintain maps >65. Transfuse for hgb <7 On protonix and octreotide for gi bleed Strict i/o. Avoid acei/arbs, contrast, nsaids, fleet enema. Renally dose adjust medications. Will continue to follow
--- NOTE | 2020-04-27 18:17 | P.PN ---
Subjective Date of Service: 04/27/20 Chief Complaint: Hematemesis, anemia, nausea, vomiting, Pt seen today. Alert and oriented x 3. Wants to walk around. Feels very well. Physical Examination - Vital Signs Temperature: 98.2 F Blood Pressure: 106/58 Pulse: 64 Respirations: 18 Pulse Ox (%): 97 Assessment & Plan Physician Review Additional Text: Problems SANYA most likely secondary to prerenal etiology as well as ischemic atn from hypotensive episodes and GI bleed Hypotension Cirrhosis GI bleed Nausea and comiting Plan C/w albumin 25gm q 6h x 48h Continue to hold all diuretics Continue midodrine 10mg tid to maintain maps >65. Transfuse for hgb <7 On protonix and octreotide for gi bleed Strict i/o. Avoid acei/arbs, contrast, nsaids, fleet enema. Renally dose adjust medications. Will continue to follow
--- NOTE | 2020-04-27 18:58 | PN ---
Date of Progress Note: 04/27/2020 The patient states he feels somewhat better today. He has had a bowel movement this morning first ti me since he has been in here. His serum ammonia has now dropped and his vital signs are stable and h e seems much more alert and possibly, he is going home tomorrow and then setting up for a procedure as an outpatient later on in the week as a possibility. He was supposed to see his liver s pecialist a couple days ago, but obviously, he was in the hospital, so this may be necessary as well. HR/MODL Voice ID: [id number] Report ID: [id number]
[2020-04-28] MEDS: LACTULOSE 20 GM/30 ML UCUP PO SCH ×3 (00:37→16:30)
[2020-04-28] MEDS: PANTOPRAZOLE INJ 80 MG in NA CHLORIDE 0.9% 250 ML IV SCH ×2 (00:39→10:00)
[2020-04-28] MEDS: ALBUMIN HUMAN 25% 100 ML IV SCH ×3 (00:39→12:48)
[2020-04-28] MEDS: OCTREOTIDE 500 MCG in NA CHLORIDE 0.9% 500 ML IV SCH (01:44)
[2020-04-28] MEDS: MIDODRINE HCL 5 MG TABLET PO SCH ×3 (08:05→20:58)
[2020-04-28] MEDS: CEFTRIAXONE/SWI 1gm 1 GM/10 ML SYR IVP SCH (08:05)
[2020-04-28] MEDS ORDERED: OCTREOTIDE 500 MCG in NA CHLORIDE 0.9% 500 ML IV SCH (13:00)
[2020-04-28] MEDS: PANTOPRAZOLE 40MG TABLET PO SCH (16:30)
--- NOTE | 2020-04-28 16:39 | P.PN ---
Subjective Date of Service: 04/28/20 Chief Complaint: Hematemesis, anemia, nausea, vomiting, Subjective: Improving (No further GI bleeding. He has appt for next Tuesday with Dr. Canales, his technical services representative.) Physical Examination - Vital Signs Temperature: 98.2 F Blood Pressure: 119/60 Pulse: 62 Respirations: 18 Pulse Ox (%): 97 Assessment And Plan - Current Problems (Diagnosis) (1) Hematemesis Current Visit: Yes Status: Acute Comment: None since admission. EGD revealed large gastric varix at GEJ/cardia and hemorrhagic gastritis in antrum. (2) Upper GI bleeding Current Visit: Yes Status: Acute (3) Hepatic encephalopathy Current Visit: Yes Status: Acute (4) History of ascites Current Visit: Yes Status: Acute (5) Anemia Current Visit: Yes Status: Acute (6) Cirrhosis of liver Current Visit: No Status: Acute Qualifiers: Ascites presence: with ascites (7) Hyperammonemia Current Visit: No Status: Acute - Plan REC: 1) switch to po Protonix and wean off Octreotide 2) this week -> outpatient gastric varix therapy at tertiary center in [place], [place] (transfer not possible with [facility] crowded due to COVID-19 and not accepting transfers at this time & he is stable tolerating po diet at this time). Will try to get Parker to see patient this week instead of next Tuesday 3) continue Lactulose and use Xifaxan therapy as outpatient (with continued Lasix and Aldactone) 4) GI clinic f/u Physician Review Additional Text: Problems SANYA most likely secondary to prerenal etiology as well as ischemic atn from hypotensive episodes and GI bleed Hypotension Cirrhosis GI bleed Nausea and comiting Plan C/w albumin 25gm q 6h x 48h Continue to hold all diuretics Continue midodrine 10mg tid to maintain maps >65. Transfuse for hgb <7 On protonix and octreotide for gi bleed Strict i/o. Avoid acei/arbs, contrast, nsaids, fleet enema. Renally dose adjust medications. Will continue to follow
[2020-04-28 18:35] LABS: Hematocrit 30.5 % (39.6-49.0); RBC Red Blood Cell Count 2.75 M/uL (4.33-5.43)
[2020-04-28 18:36] LABS: Absolute Lymphocytes (CBC) 1.8 K/uL (0.7-4.9); Basophils % 0.7 % (0-1.3); Lymphocytes % 31.4 % (15.3-44.8); MPV 9.3 fL (7.6-11.3)
--- NOTE | 2020-04-28 19:04 | P.PN ---
Subjective Date of Service: 04/28/20 Chief Complaint: Hematemesis, anemia, nausea, vomiting, Pt seen today. Alert and oriented x 3. Feels well. Review of Systems 10-point ROS is otherwise unremarkable Physical Examination - Vital Signs Temperature: 98.2 F Blood Pressure: 106/58 Pulse: 64 Respirations: 18 Pulse Ox (%): 97 - Physical Exam General: Alert, In no apparent distress HEENT: Atraumatic, PERRLA, EOMI Neck: Supple, JVD not distended Cardiovascular: Regular rate/rhythm, Normal S1 S2 Gastrointestinal: Normal bowel sounds, No tenderness Musculoskeletal: No tenderness Integumentary: No rashes Assessment & Plan Physician Review Additional Text: Problems SANYA most likely secondary to prerenal etiology as well as ischemic atn from hypotensive episodes and GI bleed Hypotension Cirrhosis GI bleed Nausea and comiting Plan Finished course of albumin Continue to hold all diuretics and blood pressure medications Will wean midodrine to 5mg po tid and assess maps Transfuse for hgb <7 On protonix and octreotide for gi bleed Strict i/o. Avoid acei/arbs, contrast, nsaids, fleet enema. Renally dose adjust medications. Will continue to follow
[2020-04-28 19:10] LABS: Magnesium 2.7 mg/dL (1.8-2.4); Phosphorus 2.6 mg/dL (2.5-4.9); Potassium 4.8 mmol/L (3.5-5.1)
--- NOTE | 2020-04-28 19:10 | PN ---
Date of Progress Note: 04/28/2020 The patient continues to improve both clinically and symptomatically. Therefore, discontinue his sim vastatin and his IV fluids, and we will start him on p.o. Protonix. If tolerated, he can be discharg ed tomorrow. He has an appointment with his cvicu rn in [place], Dr. Canales, a week from today. HR/MODL Voice ID: [id number] Report ID: [id number]
[2020-04-29] MEDS: LACTULOSE 20 GM/30 ML UCUP PO SCH ×3 (00:45→16:18)
[2020-04-29 05:35] LABS: Absolute Lymphocytes (CBC) 1.4 K/uL (0.7-4.9); Basophils % 0.8 % (0-1.3); Hematocrit 30.4 % (39.6-49.0); Lymphocytes % 23.9 % (15.3-44.8); MPV 8.6 fL (7.6-11.3); RBC Red Blood Cell Count 2.77 M/uL (4.33-5.43)
[2020-04-29 05:49] LABS: Potassium 4.9 mmol/L (3.5-5.1)
[2020-04-29] MEDS: CEFTRIAXONE/SWI 1gm 1 GM/10 ML SYR IVP SCH (09:01)
[2020-04-29] MEDS: MIDODRINE HCL 5 MG TABLET PO SCH (09:02)
[2020-04-29] MEDS: PANTOPRAZOLE 40MG TABLET PO SCH ×2 (09:02→16:30)
[2020-04-29 14:41] VITALS: BP 105/52; TEMP 97.5
[2020-04-29 14:54] LABS: Hepatitis C Virus RNA (PCR)log <1.18 log IU/mL
--- NOTE | 2020-04-29 18:05 | P.PN ---
Subjective Date of Service: 04/29/20 Chief Complaint: Hematemesis, anemia, nausea, vomiting, Pt seen today. Alert and oriented x 3. Feels well. Review of Systems 10-point ROS is otherwise unremarkable Physical Examination - Vital Signs Temperature: 97.5 F Blood Pressure: 105/52 Pulse: 58 Respirations: 18 Pulse Ox (%): 96 - Physical Exam General: Alert, In no apparent distress HEENT: Atraumatic, PERRLA, EOMI Neck: Supple, JVD not distended Respiratory: Clear to auscultation bilaterally, Normal air movement Cardiovascular: Regular rate/rhythm, Normal S1 S2 Gastrointestinal: Normal bowel sounds, No tenderness Musculoskeletal: No tenderness Integumentary: No rashes Neurological: Normal speech, Normal tone, Normal affect Assessment & Plan Physician Review Additional Text: Problems SANYA most likely secondary to prerenal etiology as well as ischemic atn from hypotensive episodes and GI bleed Hypotension Cirrhosis GI bleed Nausea and comiting Plan Midodrine discontinued. Blood pressure stable Transfuse for hgb <7 Strict i/o. Avoid acei/arbs, contrast, nsaids, fleet enema. Renally dose adjust medications. Renally clear for discharge Can follow in the outpt in 2 - 3weeks Will continue to follow
--- NOTE | 2020-04-29 19:47 | PN ---
Date of Progress Note: 04/29/2020 The patient continues to improve, definitely back to baseline. His sister was present at this conver sati. She states it was a mix of his medication the day prior to coming in. I think this has been the issue on a few occasions. In any event, his serum ammonia is as low as it has been. His vital signs are stable. He has the appointment with Dr. Canales for Tuesday and advised to keep this appoint ment and the fact that he could move it up to check with them tomorrow. He is to go back on his usua l medication, Protonix and aldactone as well, and return to see me in [address] Botello and Dr[address] Canales as well. He had no further episodes of bleeding. HR/MODL Voice ID: [id number] Report ID: [id number]
[2020-04-29 20:02] VITALS: O2SAT 96
--- NOTE | 2020-05-29 21:52 | HP ---
Date of Admission: 04/24/2020 Entrance Complaint: Vomiting, confusion. History Of Present Illness: The patient presented to the emergency room with the above outlined symp toms. He stated it had been going on for approximately 1 day. The altered mental status has been in termittent, however, the patient has recently been diagnosed with hepatic failure secondary to cirrho sis, secondary to hepatitis. He has been seen both here and in [place] and is admitted for this. Ho wever, the vomiting which he states has been somewhat tinged with blood is relatively new. He was se en in the emergency room, given Zofran, Protonix orally and IV and started on octreotide drip, and ad mitted for further treatment and evaluation. Rocephin was also utilized. Past Medical History: As above. The patient medication for this in the past. Social History: No alcohol. No smoking. Physical Examination: General: The patient is a slightly confused, elderly, moderately obese male. Vital Signs: Stable. Head and Neck: Normocephalic. Pupils equal and reactive to light and accommodation. Fundi negative . Trachea midline. Thyroid not palpable. ENT: Negative. Chest: Clear to P and A. Cardiovascular: PMI in the fifth intercostal space. Peripheral pulses present and equal bilaterally . Abdomen: Tenderness in mid epigastric area and right upper quadrant. No guarding, rebound, tenderne ss, or rigidity. Bowel sounds hyperactive. Extremities: Moderately dehydrated. Good tone and movement bilaterally. Reflexes physiologic. Rectal: Deferred. Impression: Renal insufficiency, altered mental status, anemia. Plan: The patient will be admitted and placed on IV drips to maintain his blood pressure octreotide, was seen by GI for an endoscopy procedure as necessary. The patient will be transferred back to in [place]. HR/MODL Voice ID: [id number]
--- NOTE | 2020-05-29 21:52 | DS ---
Date of Discharge: 04/29/2020 Hospital Course: The patient was admitted to the hospital on 04/24, presented to emergency room with altered mental status, vomiting, and some hematemesis. Restart him on IV drips, octreotide. Once h e is stable, we will plan for an EGD. Blood pressure medicine was held. He was maintained on his la ctulose and actually the dose was increased somewhat. There is some question of how he tolerated at home and on this regimen, his altered mental status improved considerably. He did have an elevated c reatinine and was felt probably a hydration problem, although has been somewhat of a problem in the p ast as well and Renal was also consulted. At the time of the EGD, there was a large gastric varix fr om the cardia extending from the GE junction to the cardia, fundus, severe hemorrhagic gastritis was also found in the antrum . After a few days of maintenance therapy, it was gradually decre ased and his diet was advanced. His altered mental status is improved, renal status is improved, and he had no further GI bleeding. It was felt he was well enough to be discharged to follow up ___. Final Diagnoses: Acute gastrointestinal bleed, hematemesis secondary to large gastric varix, hemorrh agic gastritis, cirrhosis secondary to hepatitis, altered mental status, acute on chronic renal disea se. HR/MODL Voice ID: [id number] Report ID: [id number]
== END 2020-04-29 16:38 | disposition home health service (06) | DRG 299 ==
LOC: ER 14:32 → ERHOLD 18:43 → 2ND 20:42
PROVIDERS: ADMIT Family Medicine; ATTEND Family Medicine
PROC: 0DJ08ZZ Inspection of Upper Intestinal Tract, Via Natural or Artificial Opening Endoscopic (ICD-10-PCS; principal; 2020-04-25 15:00)
DX: I86.4 Gastric varices (principal); K29.71 Gastritis, unspecified, with bleeding; N17.9 Acute kidney failure, unspecified; R18.8 Other ascites; E72.20 Disorder of urea cycle metabolism, unspecified; I10 Essential (primary) hypertension; K29.80 Duodenitis without bleeding; K74.60 Unspecified cirrhosis of liver; K72.90 Hepatic failure, unspecified without coma; D64.9 Anemia, unspecified; Z88.5 Allergy status to narcotic agent; Z60.2 Problems related to living alone; Z79.899 Other long term (current) drug therapy; Z20.822 Contact with and (suspected) exposure to COVID-19
CPT/HCPCS: 36415; 80048; 80053; 80076; 82140; 82947; 83690; 83735; 84100; 85018; 85025; 85610; 85730; 86850; 86900; 86901; 87522; 93005; 99285; C9113; J0696; J2354; J2370; J2405; J2704; J7040; J7050; J7120; P9047; U0003

== ENCOUNTER 2020-06-19 11:29 | Inpatient (IN) | payer OTHER ==
--- OUTSIDE RECORDS SUMMARY | 2020-06-19 11:34 | XMS REPORT | Continuity of Care Document ---
:1950 Author Organization [facility] t Address [address] [place] [address] Care Team Providers Name Role Phone Anne Marie WARD Primary Care Physician Ronaldo Garcia MD Attending Clinician Bo Webb MD Attending Clinician Azeem WARD Attending Clinician Sho CRENSHAW Attending Clinician Zen Enriquez RN Attending Clinician Unavailable Xiang WARD Attending Clinician Alvino RN Attending Clinician Unavailable Bailee WARD, [facility] Attending Clinician Jeannie WARD Attending Clinician Provider, Urgent Care Attending Clinician Unavailable RONALDO GARCIA Admitting Clinician Unavailable AZEEM Admitting Clinician Unavailable Payers Payer Name Policy Type Policy Effective Date Expiration Date Sour ce Number MEDICAREMEDICARE PART [id number] 2017 Mateo martel A AND 00:00:00 Holiness [id number] 2018- ANAI [employer] 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 [id number] 2018 [place] MEDICARE 00:00:00 Holiness [id number] 2017-PresentComme rcial Problems Condition Condition Condition Status Onset Resolution Last Treating Co mments Source Name Details Category Date Date Treatment Clinician Date Cirrhosis Cirrhosis Disease Active Nina ston of liver of liver 3-18 Method i 00:00: st 00 Generalize Generalize Disease Active [place] edema d edema 04-14 Methodi 00:00: st 00 Hyperammon Hyperammon Disease Active H [place] emia emia 04-14 Methodi 00:00: st 00 Hypoalbumi Hypoalbumi Disease Active [place] nemia nemia 04-14 Methodi 00:00: st 00 Neuralgia Neuralgia Disease Active Nina ston of right of right 04-14 Method i sciatic sciatic 00:00: st nerve nerve 00 Pain in Pain in Disease Active [place] left knee left knee 04-14 Meth asif 00:00: st 00 Scrotal Scrotal Disease Active [place] edema edema 04-14 Methodi 00:00: st 00 Strain of Strain of Disease Active Nina ston left left 04-14 Methodi patellar patellar 00:00: st tendon tendon 00 Shortness Shortness Disease Active Nina ston of breath of breath 2- Meth asif 00:00: st 00 Hepatic Hepatic Disease Active [place] cirrhosis cirrhosis 2 Meth asif 00:00: st 00 Pain, Pain, [...] Clinics Electrolyt Electrolyt Disease Resolve 2020-04-14 2020-04-14 [place] e and e and d 04-01 00:00:00 08:33:16 Method i fluid fluid 00:00: st disorder disorder 00 Allergies, Adverse Reactions, Alerts Allergy Allergy Status Severity Reaction(s) Onset Inactive Treating Comm ents Source Name Type Date Date Clinician Rudy Vance Active Other (See Yordan martel ty to Comments) 2 puts him Metho di adverse 00:00: in other st reaction 00 world s to drug codeine Adverse Active Info Not [facility] Reaction Available [facility] Social History Social Habit Start Date Stop Date Quantity Comments [facility] Std Drinks [facility] Alcohol Binge Tobacco use and 2020-05-15 2020-05-15 Never used Chace Wolfe ethodist exposure 00:00:00 00:00:00 Alcohol intake 2020-05-15 2020-05-[address] thodist 00:00:00 00:00:00 non-drinker (finding) History SDOH 2020-04-02 2020-04-02 1 Mas Meth odist Alcohol Frequency 00:00:00 00:00:00 Sex [birth year] At [birth year] Chace Wolfe ethodist 00:00:00 00:00:00 Smoking Status Start Date Stop Date Source Never smoker Mas Methodis t Medications Ordered Filled Start Stop Current Ordering Indication Dosage Frequency Signature Comments Components Source Medication Medication Date Date Medication? Clinician (SIG) Name Name cyanocobala Yes 1{tbl} QD Take 1 [place] min, 3-26 tablet by Methodi vitamin 17:19: mouth st B-12, 50 daily. (VITAMIN B-12 ORAL) COQ10, Yes 1{capsu QD Take 1 [facility] n UBIQUINOL, - le} capsule by Met hodi ORAL 17:19: mouth st 50 daily. SAW Yes 1{capsu QD Take 1 Mas PALMETTO 3-26 le} capsule by Metho di ORAL 17:19: mouth st 50 daily. sucralfate Yes 1g Q.5D Take 1 g Nina ston (CARAFATE) - by mouth 2 Met hodi 1 gram 17:19: (two) st tablet 50 times a day. pantoprazol Yes 20mg QD Take 20 mg Mas e 3-26 by mouth Methodi (PROTONIX) 17:19: daily. st 20 MG EC 50 tablet spironolact No 100mg Q.5D Take 1 [place] one 3-26 04-25 tablet Methodi (ALDACTONE) 00:00: 23:59 ([address] 100 MG 00 :00 total) by tablet mouth 2 (two) times a day for 30 days. lactulose 2020-2020- No 20g Q.[id number] Take 20 g Mas 10 gram/15 04-14 [id number] by mouth 3 Methodi mL (15 mL) 16:38: 00:00 3D (three) st solution 55 :00 times a day. 4am, 12pm, 8pm spironolact 2020-2020- No 50mg Q.5D Take 50 mg Mas one 04-14 by mouth 2 Methodi (ALDACTONE) 16:38: 00:00 (two) st 50 MG 55 :00 times a tablet day. furosemide 2020-2020- No 40mg Q.5D Take 40 mg Mas (LASIX) 40 04-14 by mouth 2 Me thodi mg tablet 16:38: 00:00 (two) st 55 :00 times a day. lactulose Yes 20g Q.25D Take 30 mL [place] 20 gram/30 04-14 (20 g Methodi mL solution 00:00: total) by s t 00 mouth 4 (four) times a day. spironolact 2020- No 100mg Q.5D Take 1 [place] one 04-14 tablet Methodi (ALDACTONE) 00:00: 00:00 ([address] 100 MG 00 :00 total) by tablet mouth 2 (two) times a day. midodrine 2020-2020- No 5mg Q.[id number] Take 1 Mas (PROAMATINE 04-14 [id number] tablet (5 Methodi ) 5 MG 00:00: 00:00 3D mg total) st tablet 00 :00 by mouth 3 (three) times a day for 30 days. torsemide 2020-2020- No 60mg Q.5D Take 3 [place] (DEMADEX) 04-14 tablets Method i 20 MG 00:00: 00:00 ([address] tablet 00 :00 total) by mouth 2 (two) times a day. tamsulosin 2020-2020- No .4mg QD Take 1 [place] (FLOMAX) 04-14 capsule Methodi 0.4 mg 00:00: 00:00 (0.[address] capsule 00 :00 total) by mouth daily with dinner. Meloxicam Meloxicam 2019-0 2019- No Renato [address] [facility] 2-06 05-07 [facility] spironolact spironolact Yes Renato not [facility] one one [facility] defined [facility] Furosemide Furosemide Yes Renato not [facility] Immunizations Ordered Immunization Filled Immunization Date Status Commen ts Source Name Name FLUZONE HIGH-DOSE PF 2020-04-14 Completed [place] 00:00:00 [facility] Vital Signs Vital Name Observation Time Observation Value Comments Source Systolic blood 2020-05-16 11:32:11 125 mm[Hg] [place] [facility] pressure Diastolic blood 2020-05-16 11:32:11 58 mm[Hg] [place] Holiness pressure Heart rate 2020-05-16 11:32:11 76 /min Chace Britton Body temperature 2020-05-16 11:32:11 36.39 Radha [facility] ton Holiness Respiratory rate 2020-05-16 11:32:11 19 /min [facility] Oxygen saturation in 2020-05-16 11:32:11 96 /min Chace Britton Arterial blood by Pulse oximetry Body weight 2020-05-16 04:10:21 100.88 kg Chace Britton BMI 2020-05-16 04:10:21 31.91 kg/m2 [place] [facility] Body height 2020-05-08 15:11:30 177.8 cm Mas Holiness Procedures Procedure Date / Time Performing Clinician Source Performed SPIROMETRY, DIFFUSION, LUNG 2020-05-16 14:33:19 Dahlia Otoole VOLUMES, MIPS/MEPS HC COMPLETE BLD COUNT 2020-05-16 04:30:00 Donald Burns on Holiness W/AUTO DIFF BASIC METABOLIC PANEL 2020-05-16 04:30:00 Donald Burns on Holiness HEPATIC FUNCTION PANEL 2020-05-16 04:30:00 Donald Burns PHOSPHORUS LEVEL 2020-05-16 04:30:00 Donald Burns Me thodist MAGNESIUM LEVEL 2020-05-16 04:30:00 Donald Burns Met hodist PROTHROMBIN TIME WITH INR 2020-05-16 04:30:00 Donald Burns ESTIMATED GFR 2020-05-16 04:30:00 Donald Burns Met hodist IR VENOUS EMBOLIZATION 2020-05-15 16:34:00 VarunuriaIlene Holiness XR CHEST 2 VW 2020-05-15 13:00:00 Maurisio Otoole Holiness HC COMPLETE BLD COUNT 2020-05-15 05:00:00 Donald Burns on Holiness W/AUTO DIFF COMPREHENSIVE METABOLIC 2020-05-15 05:00:00 Donald Burns Holiness PANEL PHOSPHORUS LEVEL 2020-05-15 05:00:00 Donald Burns Me thodist MAGNESIUM LEVEL 2020-05-15 05:00:00 Donald Burns Met hodrosanna PROTHROMBIN TIME WITH INR 2020-05-15 05:00:00 Donald Burns MISCELLANEOUS REFERRAL TEST 2020-05-15 05:00:00 Segundo Canales ESTIMATED GFR 2020-05-15 05:00:00 Donald Burns Met hodist HC COMPLETE BLD COUNT 2020-05-14 05:51:00 Donald Burns on Holiness W/AUTO DIFF COMPREHENSIVE METABOLIC 2020-05-14 05:51:00 Donald Burns Holiness PANEL PHOSPHORUS LEVEL 2020-05-14 05:51:00 Donald Burns Me thodist MAGNESIUM LEVEL 2020-05-14 05:51:00 Donald Burns Met hodrosanna PROTHROMBIN TIME WITH INR 2020-05-14 05:51:00 Donald Burns ESTIMATED GFR 2020-05-14 05:51:00 Donald Burns Met hodrosanna PROTEIN, URINE, 24 HOUR 2020-05-14 00:30:[address] ABDOMEN WWO CONTRAST 2020-05-13 12:24:08 Ilene Berkowitz PELVIS W CONTRAST HC COMPLETE BLD COUNT 2020-05-13 05:25:00 Donald Burns on Holiness W/AUTO DIFF COMPREHENSIVE METABOLIC 2020-05-13 05:25:00 Donald Burns PANEL PHOSPHORUS LEVEL 2020-05-13 05:25:00 Donald Burns Me thodist MAGNESIUM LEVEL 2020-05-13 05:25:00 Donald Burns Met hodist PROTHROMBIN TIME WITH INR 2020-05-13 05:25:00 Donald Burns ESTIMATED GFR 2020-05-13 05:25:00 Donald Burns Met hodist ECG 12-LEAD 2020-05-12 23:00:37 Maurisio Otoole CV RIGHT HEART CATH 2020-05-12 19:06:21 Maurisio Otoole SELECTIVE CORONARY HLA TRANSPLANT EVALUATION 2020-05-12 16:11:00 Segundo Canales LOW RESOLUTION FULL TYPING 2020-05-12 16:11:00 Segundo Canales BY SSO SINGLE ANTIGEN BEADS 2020-05-12 16:11:00 Segundo Canales C1Q CLASS 1 & 2 ANTIBODY 2020-05-12 16:11:00 Segundo Canales US CAROTID DUPLEX BILATERAL 2020-05-12 15:10:30 Segundo Canales HEMOCHROMATOSIS (HFE) 3 2020-05-12 14:14:00 Segundo Canales MUTATIONS CYTOMEGALOVIRUS AB, IGG 2020-05-12 14:13:00 Segundo Canales CYTOMEGALOVIRUS AB, IGM 2020-05-12 14:13:00 Segundo Canales SYPHILIS TOTAL ANTIBODY 2020-05-12 14:13:00 Segundo Canales HEPATITIS A ANTIBODY TOTAL 2020-05-12 14:13:00 Segundo Canales HEPATITIS A ANTIBODY IGM 2020-05-12 14:13:00 Segundo Canales HEPATITIS B SURFACE ANTIGEN 2020-05-12 14:13:00 Segundo Canales HEPATITIS B SURFACE 2020-05-12 14:13:00 Seugndo Canales n Holiness ANTIBODY HEPATITIS BE AG 2020-05-12 14:13:00 Segundo Canales Me thodist HEPATITIS BE AB 2020-05-12 14:13:00 Parker, Segundo Mas De thodist HEPATITIS C ANTIBODY 2020-05-12 14:13:00 Segundo Canales Holiness TYPE AND SCREEN 2020-05-12 14:09:00 Segundo Canales thodist PARTIAL THROMBOPLASTIN TIME 2020-05-12 14:08:00 Segundo Canales (PTT) FIBRINOGEN 2020-05-12 14:08:00 Segundo Canales De thodist HEMOGLOBIN A1C 2020-05-12 14:07:00 Segundo Canales De thodist DRUG VAZQUEZ 9, SER/DARRIUS, SCRN 2020-05-12 14:07:00 Segundo Canales W/RFLX TO CONF ZINC LEVEL, SERUM 2020-05-12 13:35:00 Segundo Canales CORTISOL, FREE BY 2020-05-12 13:35:00 Segundo Canales ED/LC-MS/MS CT CHEST WO CONTRAST 2020-05-12 12:10:00 Segundo Canales HIV AG/AB COMBINATION 2020-05-12 10:17:00 Segundo Canales HEPATITIS B CORE ANTIBODY 2020-05-12 10:17:00 Segundo Canales TOTAL ANTI MITOCHONDRIA SCREEN 2020-05-12 10:17:00 Segundo Canales T3, FREE 2020-05-12 10:17:00 Segundo Canales De thodist CARCINOEMBRYONIC ANTIGEN 2020-05-12 10:17:00 Segundo Canales (CEA) CANCER ANTIGEN 125 2020-05-12 10:17:00 Segundo Canales CANCER ANTIGEN 19-9 2020-05-12 10:17:00 Segundo Canales PROSTATE SPECIFIC ANTIGEN 2020-05-12 10:17:00 Segundo Canales MISCELLANEOUS REFERRAL TEST 2020-05-12 10:17:00 Segundo Canales HARPREET-FELDMAN VIRUS ANTIBODY 2020-05-12 10:16:00 Segundo Canales TEST PREALBUMIN LEVEL 2020-05-12 10:16:00 Segundo Canales ethodist C-REACTIVE PROTEIN 2020-05-12 10:16:00 Segundo Canales VITAMIN D 25 HYDROXY LEVEL 2020-05-12 10:16:00 Segundo Canales CERULOPLASMIN LEVEL 2020-05-12 10:16:00 Segundo Canales ALPHA-1 ANTITRYPSIN LEVEL 2020-05-12 10:16:00 Segundo Canales CREATININE CLEARANCE, 2020-05-12 10:16:00 Segundo Canales URINE, 24 HOUR CORTISOL LEVEL, RANDOM 2020-05-12 10:16:00 Segundo Canales SERUM ELECTROPHORESIS 2020-05-12 10:16:00 Segundo Canales LIPID PANEL 2020-05-12 10:16:00 Segundo Canales De jez ESTIMATED GFR 2020-05-12 10:16:00 Segundo Canales De jez HC COMPLETE BLD COUNT 2020-05-12 05:00:00 Krishna Webb W/AUTO DIFF Bo PROTHROMBIN TIME WITH INR 2020-05-12 05:00:00 Krishna Webb BASIC METABOLIC PANEL 2020-05-12 04:00:00 Krishna Webb MAGNESIUM LEVEL 2020-05-12 04:00:00 Krishna Webb HEPATIC FUNCTION PANEL 2020-05-12 04:00:00 DinKrishna [place] Holiness Bo PHOSPHORUS LEVEL 2020-05-12 04:00:00 Dindina, Krishna Mas Met hodrosanna Choprara ESTIMATED GFR 2020-05-12 04:00:00 Dinjazmynr, Krishna Mas Meth odist Bo BASIC METABOLIC PANEL 2020-05-11 05:00:00 DinjazmynrKrishna Holiness Bo HC COMPLETE BLD COUNT 2020-05-11 05:00:00 Dinakar, Krishna mccray Holiness W/AUTO DIFF Bo MAGNESIUM LEVEL 2020-05-11 05:00:00 Dinakar, Krishna Umaña odist Bo HEPATIC FUNCTION PANEL 2020-05-11 05:00:00 DinakarKrishna on Holiness Bo PHOSPHORUS LEVEL 2020-05-11 05:00:00 Dindina, Krishna Srivastava hodrosanna Choprara PROTHROMBIN TIME WITH INR 2020-05-11 05:00:00 DinKrishna [place] Holiness Bo ESTIMATED GFR 2020-05-11 05:00:00 Dinakar, Krishna Umaña odist Bo BASIC METABOLIC PANEL 2020-05-10 05:05:00 DinKrishna [place] Holiness Bo HC COMPLETE BLD COUNT 2020-05-10 05:05:00 Dindina, Krishna mccray Holiness W/AUTO DIFF Bo MAGNESIUM LEVEL 2020-05-10 05:05:00 Dindina, Krishna moy Bo HEPATIC FUNCTION PANEL 2020-05-10 05:05:00 DinjazmynrKrishna on Holiness Bo PHOSPHORUS LEVEL 2020-05-10 05:05:00 Dindina, Krishna Srivastava hodrosanna Choprara PROTHROMBIN TIME WITH INR 2020-05-10 05:05:00 DinKrishna [place]o Holiness Bo ESTIMATED GFR 2020-05-10 05:05:00 Dinjazmynr, Krishna Mas Meth odist Bo PROTHROMBIN TIME WITH INR 2020-05-09 04:40:00 Mateo Garcia Holiness Mynor COMPREHENSIVE METABOLIC 2020-05-09 04:40:00 Kody Garcia Hol[facility] PANEL [facility] HC COMPLETE BLD COUNT 2020-05-09 04:40:00 Christa Garcia Holiness W/AUTO DIFF Mynor ESTIMATED GFR 2020-05-09 04:40:00 Chace Garcia URINE CULTURE 2020-05-08 18:47:00 Segundo Canales De thodist URINALYSIS SCREEN AND 2020-05-08 18:47:00 Segundo Canales Holiness MICROSCOPY, WITH REFLEX TO CULTURE US ABDOMINAL DOPPLER 2020-05-08 18:15:00 Chace Garcia US HEPATIC 2020-05-08 18:15:00 Chace Garcia COVID-19 QUALITATIVE PCR 2020-05-08 17:01:00 Nina Garcia HC COMPLETE BLD COUNT 2020-05-08 17:01:00 Christa Garcia Holiness W/AUTO DIFF Mynor PROTHROMBIN TIME WITH INR 2020-05-08 17:01:00 Mateo Garcia COMPREHENSIVE METABOLIC 2020-05-08 17:01:00 Kody Garcia Holiness PANEL Mynor MAGNESIUM LEVEL 2020-05-08 17:01:00 Chace Garcia PHOSPHORUS LEVEL 2020-05-08 17:01:00 Chace Garcia Met hodrosanna Lowe ESTIMATED GFR 2020-05-08 17:01:00 Chace Garcia TYPE AND SCREEN 2020-05-08 17:01:00 Segundo Canales De thodist TOTAL IRON BINDING CAPACITY 2020-05-08 17:01:00 Segundo Canales ALPHA FETOPROTEIN 2020-05-08 17:01:00 Segundo Canales THYROID STIMULATING HORMONE 2020-05-08 17:01:00 Segundo Canales FERRITIN LEVEL 2020-05-08 17:01:00 Segundo Canales De thodist BLOOD CULTURE, AEROBIC & 2020-05-08 16:50:00 Segundo Canales ANAEROBIC BLOOD CULTURE, AEROBIC & 2020-05-08 16:20:00 GalatiSegundo ANAEROBIC BASIC METABOLIC PANEL 2020-04-14 04:30:00 Vu, Ronna Britton CBC WITH PLATELET AND 2020-04-14 04:30:00 Vu, Ronna Britton DIFFERENTIAL HEPATIC FUNCTION PANEL 2020-04-14 04:30:00 Vu, Ronna fernández Holiness MAGNESIUM LEVEL 2020-04-14 04:30:00 Vu, Ronna Mas Meth odist PHOSPHORUS LEVEL 2020-04-14 04:30:00 Vu, Ronna Mas Met vera PROTHROMBIN TIME WITH INR 2020-04-14 04:30:00 Vu, Ronna Britton ESTIMATED GFR 2020-04-14 04:30:00 DinakarKrishna MANUAL DIFFERENTIAL 2020-04-14 04:30:00 DinakarKrishna XR PANOREX 2020-04-13 09:17:49 FauriaIlene De thodist BASIC METABOLIC PANEL 2020-04-13 05:20:00 DinakarKrishna HC COMPLETE BLD COUNT 2020-04-13 05:20:00 DinakarKrishna W/AUTO DIFF Bo MAGNESIUM LEVEL 2020-04-13 05:20:00 DinakaKrishna [place] HEPATIC FUNCTION PANEL 2020-04-13 05:20:00 DinakarKrishna Holiness Bo PHOSPHORUS LEVEL 2020-04-13 05:20:00 DinakarKrishna Met vera Soriano PROTHROMBIN TIME WITH INR 2020-04-13 05:20:00 DinKrishna [place] ESTIMATED GFR 2020-04-13 05:20:00 DinakarKrishna odist Bo BASIC METABOLIC PANEL 2020-04-12 05:40:00 Dinakar, Krishna Choprara HC COMPLETE BLD COUNT 2020-04-12 05:40:00 Dinakar, Krishna [place] [facility] W/AUTO DIFF Bo MAGNESIUM LEVEL 2020-04-12 05:40:00 Dinakar, Krishna Umaña odist Bo HEPATIC FUNCTION PANEL 2020-04-12 05:40:00 Dinakar, Krishna [place] Holiness Bo PHOSPHORUS LEVEL 2020-04-12 05:40:00 Dinakar, Krishna Mas Met vera Choprara PROTHROMBIN TIME WITH INR 2020-04-12 05:40:00 Dinakar, Krishna martel Holiness Bo ESTIMATED GFR 2020-04-12 05:40:00 Dinakar, Krishna Umaña odist Bo HC COMPLETE BLD COUNT 2020-04-11 04:30:00 Dinakar, Krishna mccray Holiness W/AUTO DIFF Bo PROTHROMBIN TIME WITH INR 2020-04-11 04:30:00 Dinakar, Krishna martel Holiness Bo BASIC METABOLIC PANEL 2020-04-11 04:00:00 Dinakar, Krishna mccray Holiness Bo MAGNESIUM LEVEL 2020-04-11 04:00:00 Dinakar, Krishna Umaña odist Bo HEPATIC FUNCTION PANEL 2020-04-11 04:00:00 Dinakar, Krishna [place] [facility] Bo PHOSPHORUS LEVEL 2020-04-11 04:00:00 Dinakar, Krishna Mas Met vera Soriano ESTIMATED GFR 2020-04-11 04:00:00 Dinakar, Krishna Choprara XR ABDOMEN 1 VW PORTABLE 2020-04-10 14:20:49 Ilene Berkowitzist US ABDOMINAL LIMITED 2020-04-10 12:30:00 Ilene Berkowitz on Holiness HC COMPLETE BLD COUNT 2020-04-10 05:20:00 Dinakar, Krishna mccray Holiness W/AUTO DIFF Bo PROTHROMBIN TIME WITH INR 2020-04-10 05:20:00 Dinakamone, Krishna martel Holiness Bo BASIC METABOLIC PANEL 2020-04-10 04:00:00 Dinakar, Krishna mccray Holiness Bo MAGNESIUM LEVEL 2020-04-10 04:00:00 Dinakar, Krishna Umaña odist Bo HEPATIC FUNCTION PANEL 2020-04-10 04:00:00 Dinakar, Krishna [place] [facility]iness Bo PHOSPHORUS LEVEL 2020-04-10 04:00:00 Dinakar, Krishna Soriano ESTIMATED GFR 2020-04-10 04:00:00 Dinakar, Krishna Mas Meth odist Bo BASIC METABOLIC PANEL 2020-04-09 06:03:00 Dinakar, Krishna mccray Holiness Bo HC COMPLETE BLD COUNT 2020-04-09 06:03:00 Dinakar, Krishna mccray Holiness W/AUTO DIFF Bo MAGNESIUM LEVEL 2020-04-09 06:03:00 Dinakar, Krishna Umaña odist Bo HEPATIC FUNCTION PANEL 2020-04-09 06:03:00 Dinakar, Krishna [place] [facility] Bo PROTHROMBIN TIME WITH INR 2020-04-09 06:03:00 DinakarKrishna Holiness Bo PHOSPHORUS LEVEL 2020-04-09 06:03:00 Dinakar, Krishna Soriano ESTIMATED GFR 2020-04-09 06:03:00 Dinakar, Krishna Choprara CBC WITH PLATELET AND 2020-04-08 05:20:00 Dinakar, Krishna mccray Holiness DIFFERENTIAL Bo PROTHROMBIN TIME WITH INR 2020-04-08 05:20:00 Dinakar, Krishna martel Holiness Bo MANUAL DIFFERENTIAL 2020-04-08 05:20:00 DinakarKrishnaist Bo BASIC METABOLIC PANEL 2020-04-08 04:00:00 Dinakar, Krishna mccray Holiness Bo MAGNESIUM LEVEL 2020-04-08 04:00:00 Dinakar, Krishna Umaña odist Bo HEPATIC FUNCTION PANEL 2020-04-08 04:00:00 Dinakar, Krishna [place] Holiness Bo PHOSPHORUS LEVEL 2020-04-08 04:00:00 Dinakar, Krishna Choprara ESTIMATED GFR 2020-04-08 04:00:00 Dinakar, Krishna Mas Meth odist Bo HC COMPLETE BLD COUNT 2020-04-07 01:35:00 Donald Burns on Holiness W/AUTO DIFF BASIC METABOLIC PANEL 2020-04-07 01:35:00 Donald Burns on Holiness HEPATIC FUNCTION PANEL 2020-04-07 01:35:00 Donald Burns Holiness MAGNESIUM LEVEL 2020-04-07 01:35:00 Girma Burnstor Mas Met hodist PROTHROMBIN TIME WITH INR 2020-04-07 01:35:00 Donald Burns [facility]iness ESTIMATED GFR 2020-04-07 01:35:00 Donald Burns Met hodist HC COMPLETE BLD COUNT 2020-04-06 04:00:00 Donald Burns on Holiness W/AUTO DIFF BASIC METABOLIC PANEL 2020-04-06 04:00:00 Donald Burns on Holiness HEPATIC FUNCTION PANEL 2020-04-06 04:00:00 Donald Burns Holiness MAGNESIUM LEVEL 2020-04-06 04:00:00 Donald Burns Met hodist PROTHROMBIN TIME WITH INR 2020-04-06 04:00:00 Donald Burns Holiness ESTIMATED GFR 2020-04-06 04:00:00 Donald Burns Met hodist HC COMPLETE BLD COUNT 2020-04-05 05:00:00 Donald Burns on Holiness W/AUTO DIFF BASIC METABOLIC PANEL 2020-04-05 05:00:00 Donald Burns on Holiness HEPATIC FUNCTION PANEL 2020-04-05 05:00:00 Donald Burns Holiness MAGNESIUM LEVEL 2020-04-05 05:00:00 Donald Burns Met hodist PROTHROMBIN TIME WITH INR 2020-04-05 05:00:00 Donald Burns Hol[facility] ESTIMATED GFR 2020-04-05 05:00:00 oDnald Burns Met hodist HC COMPLETE BLD COUNT 2020-04-04 04:05:00 Donald Burns on Holiness W/AUTO DIFF BASIC METABOLIC PANEL 2020-04-04 04:05:00 Donald Burns on Holiness HEPATIC FUNCTION PANEL 2020-04-04 04:05:00 BurnsDonald brown Holiness MAGNESIUM LEVEL 2020-04-04 04:05:00 Girma Burnstor Mas Met hodist PROTHROMBIN TIME WITH INR 2020-04-04 04:05:00 Donald Burns Holiness ESTIMATED GFR 2020-04-04 04:05:00 Girma Burnstor Mas Met hodist HC COMPLETE BLD COUNT 2020-04-03 05:40:00 Donald Burns on Holiness W/AUTO DIFF BASIC METABOLIC PANEL 2020-04-03 05:40:00 BurnsDonald brown on Holiness HEPATIC FUNCTION PANEL 2020-04-03 05:40:00 Donald Burns Holiness MAGNESIUM LEVEL 2020-04-03 05:40:00 Girma Burnstor Mas Met hodist PHOSPHORUS LEVEL 2020-04-03 05:40:00 Donald Burns Me thodist PROTHROMBIN TIME WITH INR 2020-04-03 05:40:00 Donald Burns Holiness ESTIMATED GFR 2020-04-03 05:40:00 Girma Burnstor Mas Met hodist TTE COMPLETE, W CONTRAST, W 2020-04-02 22:00:00 Thalia Berkowitz DOPPLER ([id number]) AEROBIC CULTURE 2020-04-02 10:39:00 Nuria Dennis odist ANAEROBIC CULTURE 2020-04-02 10:39:00 Nuria Dennis Me thodist GRAM STAIN 2020-04-02 10:39:00 Nuria Dennis odist PROTEIN, MISC FLUID 2020-04-02 10:39:00 Ilene Berkowitz ALBUMIN, MISC FLUID 2020-04-02 10:39:00 Ilene Berkowitzist CELL COUNT AND 2020-04-02 10:38:00 Nuria Dennis odist DIFFERENTIAL, BODY FLUID BODY FLUID CONSULT 2020-04-02 10:38:00 Nuria Dennis ethfarzaneh US ABDOMINAL PARACENTESIS 2020-04-02 10:35:00 LiNuria Holiness IMAGING CBC WITH PLATELET AND 2020-04-02 04:40:00 Donald Burns on Holiness DIFFERENTIAL BASIC METABOLIC PANEL 2020-04-02 04:40:00 Donald Burns on Holiness HEPATIC FUNCTION PANEL 2020-04-02 04:40:00 Donald Burns Holiness MAGNESIUM LEVEL 2020-04-02 04:40:00 Donald Burns Met hodist PHOSPHORUS LEVEL 2020-04-02 04:40:00 Donald Burns Me thodist PROTHROMBIN TIME WITH INR 2020-04-02 04:40:00 Donald Burns Holiness B NATRIURETIC PEPTIDE 2020-04-02 04:40:00 Donald Burns on Holiness ESTIMATED GFR 2020-04-02 04:40:00 Donald Burns Met hodist MANUAL DIFFERENTIAL 2020-04-02 04:40:00 Donald Burns Holiness FIBRINOGEN 2020-04-01 15:00:00 Cecy Martinez Met hodist Shirley HC COMPLETE BLD COUNT 2020-04-01 05:00:00 Donald Burns on Holiness W/AUTO DIFF BASIC METABOLIC PANEL 2020-04-01 05:00:00 Donald Burns on Holiness HEPATIC FUNCTION PANEL 2020-04-01 05:00:00 Donald Burns Hol[facility] MAGNESIUM LEVEL 2020-04-01 05:00:00 Donald Burns Met hodist PHOSPHORUS LEVEL 2020-04-01 05:00:00 Donald Burns Me thodist PROTHROMBIN TIME WITH INR 2020-04-01 05:00:00 Donald Burns Holiness HEMOGLOBIN A1C 2020-04-01 05:00:00 Donald [facility] THYROID STIMULATING HORMONE 2020-04-01 05:00:00 Donald Burns Hol[facility] T4 2020-04-01 05:00:00 Donald Burns [facility] B NATRIURETIC PEPTIDE 2020-04-01 05:00:00 Donald [facility] ALPHA FETOPROTEIN 2020-04-01 05:00:00 Donald Burns M ethodist ESTIMATED GFR 2020-04-01 05:00:00 Donald Burns hodist URINALYSIS, AUTOMATED WITH 2020-04-01 02:50:00 Donald Burns MICROSCOPY TROPONIN 2020-04-01 01:20:00 Saad Morochooc-Karen Karen Chace Britton CT ABDOMEN PELVIS WO 2020-04-01 00:53:40 Dawn Figueredo CONTRAST Vanda US ABDOMINAL DOPPLER 2020-04-01 00:10:00 Dawn Figueredo Vanda US ABDOMEN COMPLETE 2020-03-31 23:30:00 Dawn Figueredo COVID-19 QUALITATIVE PCR 2020-03-31 22:33:00 Dawn Figueredo stomahendra Dc PROTHROMBIN TIME WITH INR 2020-03-31 22:26:00 Dawn Figueredo Holinessrosanna Dc PARTIAL THROMBOPLASTIN TIME 2020-03-31 22:26:00 Dawn Figueredo (PTT) Vanda LIPASE LEVEL 2020-03-31 22:26:00 Dawn Figueredo Meth odist Vanda TROPONIN 2020-03-31 22:26:00 Ronna Morocho-Karen Karen Chace Britton HC COMPLETE BLD COUNT 2020-03-31 21:12:00 Bailee Ronna-Karen Karen Felecia Britton W/AUTO DIFF COMPREHENSIVE METABOLIC 2020-03-31 21:12:00 Saad Morochooc-Karen Karen Chace Britton PANEL TROPONIN 2020-03-31 21:12:00 Saad Morochooc-Karen Karen Chace Britton B NATRIURETIC PEPTIDE 2020-03-31 21:12:00 Saad Morochooc-Karen Karen Felecia Britton ESTIMATED GFR 2020-03-31 21:12:00 Saad Morochooc-Karen Karen Mas Holiness US DUPLEX VENOUS LOWER 2020-03-31 20:50:00 Dawn Figueredo on Holiness EXTREMITY BILATERAL Vanda XR CHEST 1 VW PORTABLE 2020-03-31 20:04:53 Dawn Figueredo on [facility] Vanda ECG 12-LEAD 2020-03-31 18:22:47 Ronna Morocho-Karen [facility] Plan of Care Planned Activity Planned Date Details Comments Source Future Scheduled 2020-09-21 INFLUENZA VACCINE Kodyto n [facility] Test 00:00:00 [code = INFLUENZA VACCINE] Future Scheduled 2001 COLONOSCOPY SCREENING Ho maribel [facility] Test 00:00:00 [code = COLONOSCOPY SCREENING] Future Scheduled 2001 SHINGLES VACCINES (#1) H eve [facility] Test 00:00:00 [code = SHINGLES VACCINES (#1)] Future Scheduled 1967 COVID-19 VACCINE (1) Ninafernando torresmahendra [facility] Test 00:00:00 [code = COVID-19 VACCINE (1)] Future Scheduled 1957 65+ PNEUMOCOCCAL [place] [facility] Test 00:00:00 VACCINE (1 of 2 - PPSV23) [code = 65+ PNEUMOCOCCAL VACCINE (1 of 2 - PPSV23)] Encounters Start End Encounter Admission Attending Care Care Encounter Source Date/Time Date/Time Type Type Clinicians Facility Department ID 2020-05-08 2020-05-16 Inpatient AZEEM [facility] [id number] [place] 00:00:00 00:00:00 DONALD [address] 2020-03-31 2020-04-14 [id number] [place] 00:00:00 00:00:00 DONALD [address] 2020-01-04 2020-01-04 Urgent Provider, [facility] [id number] 11:30:05 11:50:05 [facility] [id number] Care [place] [id number] Professio [id number] nal [address] 2019-12-25 2019-12-25 Urgent [place], [place] [id number] 17:09:55 18:06:32 [facility] [id number] [facility] [id number] [facility] [phone] nal 0[address] 2018-05-01 2018-05-01 Outpatient Robin Castillo [id number] 15:00:00 15:00:00 [facility] Clinics Results Test Description Test Time Test Comments Results Result Comments Source C1Q class 1 & 2 antibody 2020-05-29 16:15:13 Test Item Value Reference Range Interpretation Comme nts Interpretation (test code = 1214778) Unable to analyze due to high background Case number (test code = [id number]) [id number] C1Q class 1 & 2 antibody (test code = See link below for PDF Lab Re port [id number]) [facility] resolution full typing by [id number] 15:49:43 Test Item Value Reference Range Interpretation Comments Interpretation (test Note: HLA typing was code = 4723184) performed by PCR-SSO DNA based procedures.Note: The serological phenotype is an interpretation based on molecular typing data. Case number (test code [id number] = [id number]) Low resolution full See link below for PDF typing by SSO (test Lab Report code = 1359) [place] [facility] Venous [id number] 15:29:30Hm Interface, Radiology Results - 05/17/2020 3:32 PM CDT Performing RadiologistMaria [facility] Anesthesia TypeModerate sedation was administered by the procedure nurse and monitored by the procedure physician for a rkcypjrfd-nb-txdw sedation time of 118 minutes. Lidocaine 1% was also used for local anesthetic. Pre Procedure DiagnosisBleeding gastric varices in the setting of portal hypertensionPost Procedure DiagnosisAs aboveProcedureCoil-assisted retrograde transvenous obliteration (CARTO)TechniqueWritten informed consent was obtained prior to the procedure. All elements of maximal sterile barrier technique were followed. The patient's right groin was sterilely prepared and draped in the routine manner. Lidocaine1% was used for local anesthetic. Using real-time ultrasound guidance, a 21-gauge micropuncture needle was used to access the right common femoral vein. A 0.018 inch guidewire was advanced centrally under fluoroscopy. The needle was removed, and a micropuncture sheath system was then placed over the guidewire. Under ultrasound guidance, documentation of vessel patency, needle access with permanent recording, and reporting are performed followed by placement of a sheath in the right common femoral vein. The inner dilator and guidewire were then removed, and a 0.035 inch superstiff Amplatz wire was advanced through the micropuncture sheath and into the inferior vena cava under fluoroscopy. Using a combination of a 5 [place] Islander C2 catheter and a 0.035 inch Glidewire, the left renal vein was accessed. A left renal venogram demonstrated a patent left renal vein. Next, an aberrant varix was appreciated off of the left renal vein. Venogram did not demonstrate access to the gastric varices.Ultimately, an additional abnormal connection was accessed more medially along the superior aspect of the left renal vein. Contrast injection demonstrated supply to the left phrenic in addition to dilated gastric varices. This vein appeared to correlate with findings on CT.The right common femoral venous access was then upsized to a 10 [place] Islander vascular sheath. Over a wire, the vascular sheath was advanced into the abnormal varix. Next, a 14 mm balloon was partially inflated in the proximal portion of the varix. Afterinflation, a balloon occlusion antegrade venogram was performed, which demonstrated both prominent phrenic veins in addition to the dilated perigastric varices. This is best seen on series 8 image 302.The balloon was removed over a wire. Next, a 5 [place] Islander glide catheter was placed proximally within thevarix while a 2.8 [place] Islander renegade high flow microcatheter was utilized access the dilated perigastric /gastric veins. Contrast injection confirmed access to the abnormal veins as seen on series 11.Multiple 0.035 inch Joshua detachable coils were placed in the proximal varix. Contrast injection through the microcatheter was utilized to ensure absence of retrograde flow back into the left renal vein. Once retrograde flow was confirmed to be occluded, sclerotherapy was performed to stasis using 3% sodiumtetradecyl sulfate (STS) foam and then subsequent thick Gelfoam slurry. Once stasis was confirmed, the renegade high flow microcatheter was removed. All subsequent wires, catheters, and sheaths were removed and hemostasis was obtained with manual compression. The patient tolerated the procedure well.R adiation DoseKa,r = 118 mGy ComplicationsNone Specimens RemovedNone Estimated Blood LossLess than 10mL Blood/Blood Products AdministeredNone Grafts/ImplantsAs described in the above report Impression:1. Balloon assisted antegrade venogram demonstrated dilated perigastric varices emanating from the left renal vein.2. Successful coil assisted retrograde transvenous obliteration (CARTO), a variant of balloon occlusion retrograde transvenous obliteration (BRTO), to stasis of dilated perigastric varices as described above.[facility]-[id number] Hol[facility] Spirometry, diffusion, lung volumes, MIPS/[id number] 14:33:19 Test Item Value Reference Range Interpretation Comments FEV1 Pre (test code 3.1 L 2.50-4.08 = 5348) FEV1/FVC % Pre (test 86.15 % 64.13-83.49 code = 5361) MVV Pre (test code = 64.25 L/min 107.25-145.10 5590) FVC Pre (test code = 3.6 L 3.53-5.40 5354) PEF Pre (test code = 8.98 L/s 6.14-10.77 5367) FEF 25-75% Pre (test 4.64 L/s 0.93-4.12 code = 5547) MIP Pre (test code = 31.51 See_Comment [Autom ated message] 5469) The system [employer] generated this result transmitted ref erence range: 29.11 - 136.03 cmH2O. The refe rence range was not u sed to interpret this result as normal/abnor mal. MEP Pre (test code = 70.06 See_Comment [Autom ated message] 5463) The system [employer] generated this result transmitted ref erence range: 83.46 - 180.80 cmH2O. The refe rence range was not u sed to interpret this result as normal/abnor mal. DLCO Pre (test code 11.69 See_Comment [Automa almita message] = 5493) The system [employer] generated this result transmitted ref erence range: 18.41 - 34.34 ml/(min*mmHg). The reference range was not used to int erpret this result as normal/abnormal . DL/VA Pre (test code 2.72 See_Comment [Autom ated message] = 5437) The system [employer] generated this result transmitted ref erence range: 2.77 - 5 .17 ml/(min*mmHg*L) . The reference range was not used to int erpret this result as normal/abnormal . VA SB Pre (test code 4.3 L 5.46-8.19 = 5444) DLCOc Pre (test code 13.77 See_Comment [Autom ated message] = 5430) The system [employer] generated this result transmitted ref erence range: 18.41 - 34.34 ml/(min*mmHg). The reference range was not used to int erpret this result as normal/abnormal . KCOc SB Pre (test 3.2 See_Comment [Automate d message] code = 5535) The system [employer] generated this result transmitted ref erence range: 2.77 - 5 .17 ml/(min*mmHg*L) . The reference range was not used to int erpret this result as normal/abnormal . Hb Pre (test code = 10.2 g(Hb)/dL 5540) R0.5IN Pre (test 0.51 See_Comment [Automated message] code = 5514) The system [employer] generated this result transmitted ref erence range: 3.06 - 3 .06 cmH2O*s/L. The reference range was not used to int erpret this result as normal/abnormal . FRCpl Pre (test code 3.42 L 2.70-4.68 = 5388) RV Pre (test code = 1.97 L 1.94-3.29 5402) TLC Pre (test code = 5.63 L 5.97-8.28 5416) RV % TLC Pre (test 34.91 % 31.89-49.85 code = 5409) VC Pre (test code = 3.66 L 3.53-5.40 5374) ERV Pre (test code = 1.45 L 1.07-1.07 5381) IC Pre (test code = 2.21 L 3.19-3.19 5395) sR0.5IN Pre (test 2.04 cmH2O*s code = 5521) Raw Pre (test code = 1.6 See_Comment [Autom ated message] 5507) The system whic h generated this result transmitted ref erence range: 3.06 - 3 .06 cmH2O*s/L. The reference range was not used to int erpret this result as normal/abnormal . sGaw Predicted (test 0.16 See_Comment [Autom ated message] code = 5528) The system ic h generated this result transmitted ref erence range: 0.08 - 0 .08 1/(cmH2O*s). Th e reference range was not used to int erpret this result as normal/abnormal . FEV1 Predicted (test 3.29 code = 5302) FEV1 LLN (test code 2.5 = 5347) FEV1 % Pre of 94.3 % Predicted (test code = 5308) FVC Predicted (test 4.46 code = 5307) FVC LLN (test code = 3.53 5353) FVC % Pre of 80.7 % Predicted (test code = 5355) FEV1/FVC % Predicted 74 (test code = 5359) FEV1/FVC % LLN (test 64 code = 5360) FEV1/FVC % Pre of 116.7 % Predicted (test code = 5362) FEF 25-75% Predicted 2.52 (test code = 5546) FEF 25-75% LLN (test 0.93 code = 5545) FEF 25-75% % Pre of 184 % Predicted (test code = 5548) PEF Predicted (test 8.46 code = 5310) PEF LLN (test code = 6.14 5366) PEF % Pre of 106.2 % Predicted (test code = 5368) VC Predicted (test 4.46 code = 5372) VC LLN (test code = 3.53 5373) VC % Pre of 82.1 % Predicted (test code = 5375) ERV Predicted (test 1.07 code = 5379) ERV LLN (test code = 1.07 5380) ERV % Pre of 135.2 % Predicted (test code = 5382) FRCpl % Predicted 3.69 (test code = 5386) FRCpl % LLN (test 2.7 code = 5387) FRCpl % Pre of 92.6 % Predicted (test code = 5389) IC Predicted (test 3.19 code = 5393) IC LLN (test code = 3.19 5394) IC % Pre of 69.4 % Predicted (test code = 5396) RV Predicted (test 2.62 code = 5400) RV LLN (test code = 1.94 5401) RV % Pre of 75.1 % Predicted (test code = 5403) RV % TLC Predicted 41 (test code = 5407) RV % TLC LLN (test 32 code = 5408) RV % TLC % Pre of 85.4 % Predicted (test code = 5410) TLC Predicted (test 7.13 code = 5414) TLC LLN (test code = 5.97 5415) TLC % Pre of 79 % Predicted (test code = 5417) Raw Predicted (test 3.06 code = 5505) Raw LLN (test code = 3.06 5506) Raw % Pre of 52.2 % Predicted (test code = 5508) R0.5IN Predicted 3.06 (test code = 5512) R0.5IN LLN (test 3.06 code = 5513) R0.5IN % Pre of 16.6 % Predicted (test code = 5515) sGaw Predicted (test 0.08 code = 5526) sGaw LLN (test code 0.08 = 5527) sGaw % Pre of 187.2 % Predicted (test code = 5529) DLCO Predicted (test 26.38 code = 5421) DLCO LLN (test code 18.41 = 5422) DLCO % Pre of 44.3 % Predicted (test code = 5424) DLCOc Predicted 26.38 (test code = 5428) DLCOc LLN (test code 18.41 = 5429) DLCOc % Pre of 52.2 % Predicted (test code = 5431) DL/VA Predicted 3.97 (test code = 5435) DL/VA LLN (test code 2.77 = 5436) DL/VA % Pre of 68.5 % Predicted (test code = 5438) KCOc SB Predicted 3.97 (test code = 5533) KCOc SB LLN (test 2.77 code = 5534) KCOc SB % Pre of 80.7 % Predicted (test code = 5536) VA SB Predicted 6.82 (test code = 5442) VA SB LLN (test code 5.46 = 5443) VA SB % Pre of 63.1 % Predicted (test code = 5445) MIP Predicted (test 82.57 code = 5449) MIP LLN (test code = 29.11 5450) MIP % Pre of 38.2 % Predicted (test code = 5452) MEP Predicted (test 132.13 code = 5456) MEP LLN (test code = 83.46 5457) MEP % Pre of 53 % Predicted (test code = 5459) MVV Predicted (test 126 code = 5544) MVV LLN (test code = 107 5543) MVV % Pre of 50.9 % Predicted (test code = 5587) [facility] [id number] 19:23:28 Test Item Value Reference Range Interpretation Comments SAB serum ID (test code [id number] = 5866) SAB serum collection D&T 05/12/2020 04:11 PM (test code = 5867) SAB class I antibody Negative assignment (test code = 5870) SAB cPRA class I (test 0 code = 5868) SAB class II antibody Negative assignment (test code = 5871) SAB cPRA class II (test 0 code = 5869) Case number (test code = [id number]) Single antigen beads See link below for (test code = 4604) PDF [facility] [id number] 13:32:44Hm Interface, Radiology Results - 05/15/2020 1:35 PM CDT Examination: XR CHEST 2 VWClinical History: Liver Transplant EvaluationComparison: 03/31/2020Technique: Frontal and lateral views of the chestImpression:Subtle basilar peripheral reticulations raising possibility of mild interstitial edema or trace fibrosis.No acute airspace disease or pleural effusion.Normal heart size and pulmonary vascularity.[id number] MethodistEC[facility] 12 [id number] 23:19:55 Test Item Value Reference Range Interpretation Comments Ventricular rate 74 (test code = 253) Atrial rate (test 74 code = 255) NH interval (test 198 code = 266) QRSD interval (test 124 code = 260) QT interval (test 424 code = 264) QTC interval (test 470 code = 265) P axis 1 (test code = 41 267) QRS axis 1 (test code -27 = 268) T wave axis (test 71 code = 270) EKG impression (test Normal sinus rhythm-Left code = 273) ventricular hypertrophy with QRS widening and repolarization abnormality ( R in aVL , Ramone product )-Cannot rule out Septal infarct , age undetermined-Abnormal ECG-In automated comparison with ECG of 31-MAR-2020 18:22,-Minimal criteria for Septal infarct are now present- [facility] Abdomen WWO Contrast, Pelvis W [id number] 12:57:35Hm Interface, Radiology Results - 05/13/2020 1:00 PM CDT EXAMINATION: CT ABDOMEN WWO CONTRAST PELVIS W CONTRASTCLINICAL HISTORY: cirrhosis evaluate portal veinCOMPARISON: 04/01/2020, 05/12/2020TECHNIQUE: CT of the abdomen and pelvis with intravenous contrast. Noncontrast images obtained of the abdomen.CT imaging was performed with iterative reconstruction techniques and/or automated exposure control to reduce radiation dose. FINDINGS:LOWER THORAX: There are some stable areas of subpleural scarring within the lung bases. Moderate scattered coronary calcifications.HEPATOBILIARY: A previously discussed punctate focus of air in t he hepatic dome peripherally is no longer present. There is no evidence of portal venous air on today's examination.The liver is cirrhotic. There is no focal hepatic lesion identified. There is conventional hepatic arterial anatomy. The portal veins are patent, they are diffusely small. The hepatic veins are suboptimally visualized on this examination.There are some stones within the gallbladder. There is no biliary ductal dilatation.SPLEEN: Enlarged measuring 14.5 cm in length.PANCREAS: There is a 1.3 cm cystic lesion at the junction of the body and tail of the pancreas. There is question of a second cystic lesion in the head measuring 9 mm. There is no pancreatic ductal dilatation. Pancreas isatrophic in the region of the neck and proximal body.ADRENALS: No adrenal nodules.KIDNEYS: No hydronephrosis, stones or solid masses.GI TRACT: The appendix is normal. There is wall thickening withinthe ascending colon and very terminal ileum. Reidentified is a 1.5 cm lipoma in the hepatic flectureof the colon. There is no evidence of bowel obstruction.PERITONEUM/RETROPERITONEUM: There is some gastrohepatic and roz hepatic adenopathy which was present on prior. This probably reactive to the cirrhosis. Attention on follow-up. There is no retroperitoneal adenopathy. There is a slightly prominent stable right external iliac node measuring 1 cm, also favored to be reactive. Previous ascites hasmarkedly improved. There is trace pelvic ascites. No free air.VASCULATURE: There is a very large mesenteric collateral in the right lower quadrant between the SMV and IVC. there is a small re-canalizedumbilical vein. There are some additional smaller collaterals in the left upper quadrant with a spontaneous left splenorenal shunt. There are some varices in the region of the cardia of the stomach.Mild atherosclerosis of the abdominal aorta which is nonaneurysmal. Retroaortic left renal vein.PELVIC ORGANS/BLADDER: Mild nonspecific bladder wall thickening.BONES AND SOFT TISSUES: Mild anasarca. Degenerative changes in the spine. There is a stable mild compression deformity of the superior endplate of L2.IMPRESSION:1.Hepatic cirrhosis without suspicious hepatic lesion.2.Portal hypertension manifested by splenomegaly, trace pelvic ascites and abdominal collaterals as described above. This includes a large mesenteric collateral on the right and some gastric varices. The portal veins are patent, butdiffusely small.3.There is no evidence of portal venous air on today's examination.4.Wall thickeningwithin the right colon and very terminal ileum is nonspecific. This may represent portal colopathy/enteropathy. Other colitides are not excluded. Follow-up direct visualization can be performed if not done so recently to exclude any other pathology.5.1.3 cm cystic lesion within the body/tail of the pancreas. Questionable second cystic lesion within the pancreatic head. 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 1-2 year follow-up MRI with MRCP versus CT scan is recommended for surveillance.6.Additional fi ndings as above.[id number]_PS08Houayde PhillipsA transplant [id number] 16:13:41 Test Item Value Reference Range Interpretation Comments HLA transplant evaluation See link below for (test code = 64369-4) PDF Lab Report Case number (test code = [id number]) Chace Delarosa carotid [id number] 15:42:00Interface, Radiology Results In - 05/12/2020 3:42 PM CDTFormatting of this note might be different f rom the original. Vascular Ultrasound Laboratory Carotid Artery Duplex Report [id number] [facility], [facility] [address], [place] [address] For quality assurance technician purposes, the categorization of thedegree of the stenosis of this exam is based on criteria described in the IAC carotid stenosis grading white paper( www.intersocietal.org/Vascular) and Yaima Lundberg., Wu Bhagat., et al. Carotid artery stenosis: ortiz-scale and Doppler US diagnosis--Society of Radiologists in Ultrasound Consensus Conference. Radiology. 2003 Dec; 229(2):340-6. Pat.Name: SRIKANTH TOMAS Pat.ID: [id number] St.Date: 05/12/2020 Refer.MD: SAMM WEBB MDExam Time: 2:21:00 PM Study Type:Carotid Height: 70in Weight: 224lb BSA: 2.19 m2 Age: 12 1950,70Y Sex: MALE Sonogrphr: Tim Camar[place] RVT Pat. Stat.:Inpatient Room: [address] Vol: , CPT - 4: 97195 Echo Event ID:[id number] Order ID: [id number] Reason for Study:Pre-operative forl liver transplant. History ofcirrhosis of liver.Procedures: Colorflow, Grayscale/2D, Pulsed wave DopplerRace: D SUMMARY: PHYSICAL ASSESSMENT Blood Pulses Carotid Pressure Carotid Temporal BruitRight IV + + 0Left 113/59 + + 0CAROTID ARTERY SCANRIGHT: There is smooth intimal lining seen in the common carotidartery. There is hard and calcified plaque seen in the bulb e xtendinginto proximal internal and external carotid artery. Colorflow andDoppler signals are present. There is antegrade flow seen in thevertebral artery. LEFT: There is smooth intimal lining seen in the common carotidartery. There is hard and calcified plaque seen in the bulb extendinginto proximal internal carotid artery. The external carotid artery isclear. Colorflow and Doppler signals are present. There is antegradeflow seen in the vertebral artery. Elevated velocity is seen at thesubclavian artery. PRELIMINARY FINDINGS1. <50% stenosis of bulb and internal carotid artery, bilaterally.2. <50% stenosis of right external carotid artery.3. Antegrade flow seen in the vertebral artery, bila terally. 4. Elevated velocity is seen at the left subclavian artery. PHYSICIAN INTERPRETATION Bilateral carotid duplex examination demonstrated atheroscleroticplaques in the bulbs. Less than 50% stenosis in the bulb and internal carotid artery,bilaterally.Both vertebral arteries are antegrade.>50% left subclavian artery stenosis. FINDINGS: Carotid Findings: Right Left Verteb.Flw Antegrade Antegrade Subclavian Triphasic Triphasic MEASUREMENTS: ----- DOPPLERRight CCA Dist CCA Dist PSV 90.1 cm/s CCA Dist EDV 26.7 cm/sRight CCA Mid CCA Mid PSV 117 cm/s CCA Mid EDV 22 cm/sRight CCA Prox CCA Prox PSV 141 cm/s CCA Prox EDV 20.9 cm/sRight ECA Prox ECA Prox PSV 155 cm/s ECA Prox EDV 22.9 cm/sRight ICA Dist ICA Dist PSV 108 cm/s ICADist EDV 38.1 cm/sRight ICA Mid ICA Mid PSV 108 cm/s ICA Mid EDV 31.7 cm/sRight ICA Prox ICA Prox PSV 108 cm/s ICA Prox EDV 31.8 cm/sRight Vertebral VertebralPSV 58.9 cm/s Vertebral EDV 12.1 cm/sLeft CCA Dist CCA Dist PSV 129 cm/sCCA Dist EDV 26.8 cm/sLeft CCA Mid CCA Mid PSV 114 cm/s CCA Mid EDV 25.2 cm/sLeft CCA Prox CCA Prox PSV 104 cm/s CCA Prox EDV 20.4 cm/sLeft ECA Prox ECA Prox PSV 145 cm/s ECA Prox EDV 24.8 cm/sLeft ICA Dist ICA Dist PSV 97.8 cm/Archana Dist EDV 30.5 cm/sLeft ICA Mid ICA Mid PSV 110 cm/s ICA Mid EDV 34.7 cm/sLeft ICA Prox ICA Prox PSV 123 cm/s ICA Prox EDV 32.7 cm/sLeft Vertebral Vertebral PSV 64.2 cm/s Vertebral EDV 17.1 cm/sRight SCA Prox SCA Prox PSV 181 cm/s Left SCA Prox SCA Prox PSV 314 cm/s Right ICA/CCA Ratio ICA/CCA PSV 0.923 Left ICA/CCA Ratio ICA/CCA PSV 1.08 Signed 05/12/2020 03:42 PMDahliasolt Kaleb MD, [facility] MethodistCT Chest Wo [id number] 14:14:10Addendum by Otto Person MD on 05/13/2020 7:57 AM ADDENDUM #2 Upon rereview, there is a 1.7 cm lipoma in the region of the hepatic flecture of the colon. ADDENDUM #[address] Canales's nurse Myriam 05/12/2020 at 2:34 PM. She verbalized understanding. Addendum by Otto Person MD on 05/12/2020 2:34 PM ADDENDUM #[address] Canales's nurse Myriam 05/12/2020 at 2:34 PM. She verbalized understanding. [facility], Radiology Results Incoming - 05/12/2020 2:17 PM CDT EXAMINATION: CT CHEST WO CONTRASTCLINICAL HISTORY: Liver Transplant EvaluationTECHNIQUE: Axial images of the chest were obtained without intravenous contrast. The lack of intravenous contrast reduces the sensitivity of the exam and evaluating vasculature. CT imaging was performed with iterative reconstruction technique and/or automated exposure control to reduce radiation dose.COMPARISON: 04/01/2020FINDINGS:Lungs and airways: Mild stable subpleural scarring withinthe lung bases. There is no consolidation, suspicious nodule or central airway abnormality. Pleura: No pleural effusion or pneumothorax.Mediastinum and lymph nodes: A few upper limits of normal mediastinal lymph nodes are likely reactive and can be reevaluated on follow-up. Calcified subcarinal lymph node from previous granulomatous disease. Cardiovascular: Ascending thoracic aorta is mildly aneurysmal measuring 4 cm. It tapers in the arch. Mild calcifications in the arch. Main pulmonary artery is normal in caliber. Moderate coronary calcifications. Mild cardiac enlargement.Upper abdomen: The liver is cirrhotic. There are some upper abdominal collaterals. There is suggestion of very minimal air in the right hepatic dome peripherally (series 2, image 84). Minimal portal venous air is possible. There are stones within the gallbladder. Previous abdominal ascites has resolved. There is some mild edema of the upper abdominal fat. There are some slightly prominent roz hepatic lymph node which are likely reactive. There is suggestion of a 1.8 cm fluid density lesion in the body/tail region of the pancreas.Musculoskeletal: Mild anasarca. 1.2 cm area of nodularity in the upper inner quadrant of theleft breast. Degenerative changes in the spine and shoulders.IMPRESSION:1.Questionable small focus of portal venous air in the right hepatic dome. CT scan of the abdomen and pelvis with contrast is renetta mmended for further evaluation and to exclude a component of bowel ischemia/pneumatosis. Correlationwith lactic acid can also be performed.2.1.8 cm fluid density lesion in the region of the pancreaticbody and tail may represent cystic pancreatic neoplasm such as a sidebranch IPMN. It can be further c haracterized at the time of the contrast enhanced CT scan of the abdomen and pelvis.3.No acute consolidation, effusion or suspicious lung nodule.4.1.2 cm area of nodularity in the upper inner quadrant of the left breast is favored to represent nodular fibroglandular tissue. Recommend follow-up breast ultrasound for further characterization and to exclude other pathology.5.Hepatic cirrhosis6.Additional findings as above.7.Callback was performed to the office of Dr. Canales 05/12/2020 at 12:55 PM and 2:10 PM. My callback number was provided to discuss these findings.HMRM-WPHYDPKHousmaribel Matson [id number] 20:32:59 Test Item Value Reference Range Interpretation Comments Urine culture (test SEE COMMENT Bacteriu fernando screen code = [id number]) negative. Chace Delarosa [id number] 19:32:36Hm Interface, Radiology Results Incoming - 05/08/2020 7:35 PM CDT EXAMINATION: US HEPATIC HISTORY: 70 years old Male. Liver cirrhosis.COMPARISON: CT abdomen pelvis 04/01/2020FINDINGS: Liver: Heterogeneous in echogenicity and coarsened in echotexture with nodular contour. Measures 13.8 cm in long axis.Bile ducts: Common duct is normal and measures 4.7 mm. No intrahepatic ductal dilatation.Gallbladder: Normal in size. Wall thickness is 3.3 mm. Contains cholelithiasis. No pericholecystic fluid. Sonographic Castillo's sign is not reported.Vasculature: Appropriate flow is visualized in the portal veins. IMPRESSION: 1. Nodular, cirrhotic liver.2. Cholelithiasis.[id number] Chace Delarosa Abdominal [id number] 19:30:30Hm Interface, Radiology Results Incoming - 05/08/2020 7:33 PM CDTFormatting of this note might be di fferent from the original.EXAMINATION: US ABDOMINAL DOPPLERCLINICAL HISTORY: Liver cirrhosisCOMPARISON: CT abdomen pelvis July 30, 2020, liver ultrasound 05/08/2020TECHNIQUE: Ortiz scale, color Dopplerand spectral waveform analysis of the hepatic vasculature.IMPRESSION:1. PORTAL VEINS: *Main portal vein: Patent with appropriate direction of flow. Portal vein velocity is 19.0 cm/sec. *Left Portal Vein: Patient with appropriate direction of flow.*Right Portal Vein:Patent with appropriate direction of flow.2. HEPATIC VEINS: *Right Hepatic Vein: Patent.*Middle Hepatic Vein: Patent.*Left Hepatic Vein: Patent.3. HEPATIC ARTERIES: *Right Hepatic Artery: Patent with a normal resistive index.*Left Hepatic Artery: Patent with a normal resistive index.4. IVC: The inferior vena cava is patent.5. SMV: Not visualized.6. SPLENIC ARTERY/VEINS: *Splenic Artery/Vein at Spleen: The splenic artery/vein at the spleen are patent.*Splenic Artery/Vein at Midline: Not visualized.[place] TemiistXR [id number] 09:25:18Hm Interface, Radiology Results Incoming 04/13/2020 9:28 AM CST EXAMINATION: XR PANOREXCLINICAL HISTORY: missing teeth rule out infectionin setting of hepatic encephalopathyCOMPARISON: NoneIMPRESSION:A single Panorex is provided.There are multiple missing teeth and multiple dental restorations.No worrisome periapical lucency is identified.[facility]-[id number] MethodistXR Abdomen 1 Vw [id number] 14:24:12Hm Interface, Radiology Results Incoming 04/10/2020 2:27 PM CSTFormatting of this note might be di fferent from the original.EXAM: XR ABDOMEN 1 VW PORTABLECLINICAL: Nausea vomiting, rule out ileus or constipationCOMPARISON: None.IMPRESSION: 1.Nonspecific bowel gas pattern without radiographic evidence of obstruction.2.Mild degenerative changes in the spine.[facility]-[id number] TemiistUS Abdominal [id number] 13:01:07Hm Interface, Radiology Results Incoming - 04/10/2020 1:04 PM CST EXAMINATION: US ABDOMINAL LIMITEDINDICATION: Ascites.COMPARISON: 04/02/2020IMPRESSION:Targeted ultrasound of the 4 quadrants of the abdomen was performed which demonstrates an overall small volume of ascites.[facility] CenterTransthoracic Echocardiogram Complete, (w Contrast, Strain and 3D if needed)2020-04-03 15:24:00Interface, Radiology Results In 04/03/2020 3:25 PM CST Echocardiography Report [id number] [address].Name: SRIKANTH TOMAS [facility].ID: [id number] .Date: 04/02/2020 Refer.MD: NURIA DENNIS MD Exam Time: 9:19:00 PM Study Type:Routine Echo Height: 70in Weight: 320lb BSA: 2.55 m2 Age: 12 1950,70Y Sex: MALE BP: 123/56 HR: 81 bpm Sonogrphr: YOMI Montoya /Mikala Keller MDPat. Stat.:Inpatient Room: [place] [address] Study Status:Final Echo Event ID:[id number] Order ID: [id number] Reason for Study:fluid overload rule out cardiac etiology, cardiacmurmurProcedures: 2D Echo, Colorflow Doppler, Strain, Portable, IntravenousLumason ContrastRace: D SUMMARY:----- LV size is normal.Biplane LV EF is 68%. ------FINDINGS: LV: LV size is normal. Biplane LV ejection fraction= 68% LV EF is normal. Overall wall motion is normal.RV: RV size is normal. RVfree wall strain is normal at -27.8%. RV systolic function is normal.LA: LA volume ismoderately enlarged. LA reservior strain is normal at 43.9%.RA: RA size is normal.AO: Aortic root diameter is normal.YOVANY: No pericardial effusion.AV: Mild thickening andcalcification of AV leaflets.MV: Mild mitral annular calcification.PV: Pulmonic valve not well seen.TV: No structural TV abnormalities noted.Other: Insufficient TR jet to estimate PA systolic pressure. MEASUREMENTS: 2DParasternal Long Harris Ao An 2 cm LVPWd 1 cm [...] LV CI 3.1 l/m/m2 LVESV 46.7 ml Index 18.3 ml/m2 LV SV 99.3 ml LV EF 68 % (63-77) HR 81 bpm LV CO 8 l/min LA Sng Plane LA Area 28.4 cm2 (8.8-23.4) LA Vol 111.1 ml Index 43.6 ml/m2 LA LngAx 5.9 cm RA Sng Plane RA Vol 27 ml Index 10.6ml/m2 RA LngAx 5.6 cm RA Area 13.5 cm2 (8.3-19.5)LVOT LVOT Area 3.2 cm2 DOPPLERAV For Flow/LIZETTE AV pkVel 188.7 cm/s (100-170) AV [...] LVOT CI 3.3 l/m/m2LVOT Stroke Vol & Cardiac Out HR 81 bpm Mitral Valve MV pkE 117.5 cm/s (60-130) MV pkA 105.2 cm/s Signed 04/03/2020 03:24 PMSherif Chuckie Ron M.D.[facility] Abdominal Paracentesis [id number] 15:53:03Hm Interface, Radiology Results 04/02/2020 3:56 PM CST PROCEDURE:Ultrasound-guided paracentesisAttending Physician: Dr. CedilloPerforming Clinician:JASSI RiveroHEYWOOD HOSPITALGagandeep Assistants:NonePre Procedure Diagnosis:ASCITESPost Procedure Diagnosis:ASCITESIndication:AscitesComplications:No immediate post procedure complications.IMPRESSION:1.Technically successful ultrasound-guided diagnostic/therapeutic paracentesis.2.There is a moderate simple ascites.3.No residual ascites is seen on postprocedure ultrasound.PLAN:The patient will be monitored in the recovery area for approximately 30 minutes to evaluate vital signs and blood pressu re. PRO CEDURE SUMMARY:Access of the peritoneal space using ultrasound guidancePROCEDURE DETAILS:Pre-procedure:Comparison studies: NoneWritten and informed consent for the procedure and monitored conscious sedation was obtained from the patient.Prophylactic antibiotics: NonePreparation: The right upper quadrant of the abdomen wasprepared and draped using all elements of maximal sterile barrier technique including sterile gloves, sterile gown, catheter, mask, large sterile sheet, sterile ultrasound probe cover, hand hygiene andcutaneous antisepsis using chlorhexidine.Anesthesia/Sedation:Level of anesthesia: None (Lidocaine onl y)Medications used: 1% lidocaineDuration of anesthesia/sedation: N/AAccess:Local anesthesia was administered. The right upper quadrant was evaluated with preprocedure ultrasound. Real-time ultrasound was used to visualize needle entry into the peritoneal space. Access technique:One-step CatheterParacentesis:Fluid Color: YellowVolume Removed: 3200 mLFluid Analysis: The fluid was sent for laboratory tests ordered by the primary teamClosure:The One-step catheter was removed and hemostasis was achievedwith manual compression. A sterile dressing was applied.Additional details:Estimated blood loss: Less than 10 [facility]-[id number] MethodistUS Abdomen [id number] 01:13:36Hm Interface, Radiology Results 04/01/2020 1:16 AM CST EXAM: US ABDOMEN COMPLETECLINICAL DATA: distentionCOMPARISON: CT abdomen/pelvis 04/01/2020FINDINGS: LIVER: The liver has a nodular contour with coarsened echotexture, consistent with cirrhosis. No focal hepatic lesion is identified.MPV: Doppler evaluation of the portal veindemonstrates normal hepatopetal flow. 0.9 cm.GALLBLADDER: The gallbladder contains multiple stones. No gallbladder wall thickening is identified.CBD: 5.4 mm.PANCREAS: The visualized portions of the pancreas are within normal limits.SPLEEN: The spleen is homogeneous and not enlarged measuring 12.0cmRIGHT KIDNEY: The right kidney is normal in size and echogenicity. There is no evidence of mass, calculi, or hydronephrosis. The right kidney measures 11.3 X 5.6 X 5.8 cm.LEFT KIDNEY: The left kidney is normal in size and echogenicity. There is no evidence of mass, calculi, or hydronephrosis. Theleft kidney measures 12.3 X 6.7 X 5.0 cm.AORTA: The visualized upper abdominal aorta demonstrates no evidence of ectasia or aneurysm.IVC: The visualized portions of the inferior vena cava are unremark able.ASCITES: Moderate volume ascites is noted.PLEURAL EFFUSION: There are no pleural effusions.IMPRESSION: Cirrhotic liver morphology with moderate volume ascites.Cholelithiasis without sonographic evidence of cholecystitis.[id number] [place] MethodistCT Abdomen Pelvis Wo [id number] 01:02:13Hm Interface, Radiology Results Incoming - 04/01/2020 1:05 AM CST Examination: CT ABDOMEN PELVIS WO CONTRASTClinical History: abd distentionComparison: None.Findings:CT scans are performed using radiation dose reduction techniques. Technical factors are evaluated and adjusted to ensure appropriate moderation of exposure. Automated dose management technology is applied to adjust radiation exposure while achieving a diagnostic quality image. CT imaging was performed with iterative reconstruction techniques and/or automated exposure control to reduce radiation dose.CT scan of the abdomen and pelvis was performed without intravenous contra st.The liver is nodular in contour and small in size consistent with cirrhosis. Spleen, pancreas, and adrenal glands are unremarkable. Gallbladder shows gallstones but no gallbladder wall thickening.The kidneys are within normal limits without hydronephrosis or urinary calculus.Moderate ascites is seen throughout the abdomen [...] evidence for cholecystitis.3. Right inguinal hernia containing ascites.[id number] MethodistUs duplex venous lower [id number] 21:27:00Interface, Radiology Results In - 03/31/2020 9:28 PM CST Vascular Ultrasound Laboratory Lower Extremity Venous Report [id number] [place] [address] Pat.Name: SRIKANTH TOMAS Pat.ID: [id number] St.Date: 03/31/2020 Refer.MD: PHYSICIAN, EMERGENCY, Exam Time: 8:17:00PM Study Type:LE Venous Age: 12 1950,70Y Sex: MALE Sonogrphr: BREA Santiago RCS Pat. Stat.:Inpatient Room:[facility] ED E24 Tape Vol: JM, CPT - 4: 58258 Echo Event ID:[id number] Order ID: [id number] Reason for Study:Leg swelling , DVT suspected.Procedures: Colorflow, Grayscale/2D, Pulsed wave DopplerRace: D -- SUMMARY: DUPLEX SCAN OBSERVATIONS Deep Veins Superficial Veins Right Left Right Left GSV (prox) Normal NormalCFV Normal Normal (above knee)Femoral Normal Normal GSV (dist) Normal NormalProfunda Normal Normal (below knee)Popliteal Normal NormalPT (prox) Not Visualized Not visualized SSV Normal Not VisualizedPT (dist) NormalNormal Peroneal Not Visualized Not Visualized Gastrocs Normal NormalRIGHT: There is normal compressibility with no evidence of echogenicmaterial noted within the lumen of the visualized veins. Color flowand Doppler signals are normal.LEFT: There is normal compressibility with no evidence ofechogenic material noted within the lumen of the visualized veins.Color flow and Doppler signals are normal.PRELIMINARY FINDINGS:1. No evidence of venous thrombosis of the visualized veins,bilaterally.2. Technically difficult study due to leg swelling, bilaterally.*Preliminary result reported to KATIANA Gaston 2100 on 03/31/20.PHYSICIAN INTERPRETATION: Venous examination of the both lower extremities demonstrated noevidence of venous thrombosis in the visualized veins. Normalcompressibility and augmentation of all veins visualized. FINDINGS: ---- MEASUREMENTS: DOPPLERGeneral Anatomy General Anatomy 0.527 s Signed 03/31/2020 09:27 Qamar Manuel MD, RPMichell BrittonXR Chest 1 Vw [id number] 20:15:52Hm Interface, Radiology Results Incoming - 03/31/2020 8:18 PM CSTFormatting of this note might be di fferent from the original.Study:XR CHEST 1 VW PORTABLEHistory: SOBCOMPARISON: None.IMPRESSION:A single view of the chest. There is no focal consolidation, pleural effusion or pneumothorax. Cardiac silhouette is normal. Visualized osseous structures are without acute abnormality.[facility]-[id number] Methodist
[2020-06-19 12:26] LABS: Absolute Lymphocytes (CBC) 1.2 K/uL (0.7-4.9); Basophils % 0.7 % (0-1.3); Hematocrit 33.9 % (39.6-49.0); Lymphocytes % 18.9 % (15.3-44.8); MPV 8.5 fL (7.6-11.3); RBC Red Blood Cell Count 3.22 M/uL (4.33-5.43)
[2020-06-19 12:49] LABS: Albumin 2.9 g/dL (3.4-5.0); Bilirubin Direct 1.2 mg/dL (0-0.2); Bilirubin Total 3.5 mg/dL (0.2-1.0); Potassium 3.6 mmol/L (3.5-5.1)
[2020-06-19 13:00] LABS: Blood Morphology Comment NOTED (NOT SEEN); Macrocytosis 1+; Platelet Estimate DECR; White Blood Cell Scan OK (OK)
[2020-06-19] MEDS ORDERED: ONDANSETRON 4 MG/2 ML VIAL IV PRN (14:43)
--- NOTE | 2020-06-19 14:46 | EDPHYS ---
Physician Documentation [facility] Name: Dorian Cruz Age: 70 yrs Sex: Male : 1950 Arrival Date: 06/19/2020 Time: 11:32 Bed 3 Private MD: Jan Kenney ED Physician Jaspal Garcia HPI: 06/19 15:45 This 70 yrs old Male presents to ER via Wheelchair with complaints of kb Dehydration. 15:45 The patient presents to the emergency department with nausea, vomiting. Onset: The kb symptoms/episode began/occurred 7 day(s) ago. Possible causes: dehydration, liver disease. The symptoms are aggravated by nothing. The symptoms are alleviated by nothing. Associated signs and symptoms: Pertinent positives: nausea, vomiting. Severity of symptoms: At their worst the symptoms were moderate in the emergency department the symptoms are unchanged. The patient has experienced similar episodes in the past. The patient has been recently seen by a physician:. Pt reports his liver specialist doubled his diuretic dose a couple of weeks ago which has made him urinate too much. States he has been losing weight, then on Tuesday started having nausea and vomiting. States he is unable to tolerate anything by mouth and he has started to have some confusion.. Historical: - Allergies: 11:42 Codeine; tw2 - Home Meds: 11:42 furosemide 20 mg Oral tab [Active]; spironolactone 100 mg oral tab 1 tab once daily tw2 [Active]; lactulose 20 gram/30 mL Oral soln 30 mL 3 times per day [Active]; Carafate 1 gram Oral tab 1 tab 4 times per day [Active]; 12:26 torsemide 20 mg oral tab 3 tabs twice a day [Active]; spironolactone 50 mg Oral tab 1 sv tab 2 times per day [Active]; nadolol 20 mg oral tab 1 tab once daily [Active]; sucralfate 1 gram Oral tab 1 tab 2 times per day [Active]; Protonix 20 mg Oral TbEC 1 tab once daily [Active]; 12:27 lactulose 20 gram/30 mL Oral soln 30 mL 3 times per day [Active]; sv - PMHx: 11:42 Cirrhosis; Hepatitis; tw2 - PSHx: 11:42 Tonsillectomy; steel plate in left knee; tw2 - Immunization history:: Adult Immunizations. - Social history:: Smoking status: . ROS: 15:51 Constitutional: Negative for fever, chills, and weight loss, Cardiovascular: Negative kb for chest pain, palpitations, and edema, Respiratory: Negative for shortness of breath, cough, wheezing, and pleuritic chest pain, MS/Extremity: Negative for injury and deformity, Skin: Negative for injury, rash, and discoloration, Neuro: Negative for headache, weakness, numbness, tingling, and seizure. 15:51 Abdomen/GI: Positive for nausea and vomiting. 15:51 Neuro: Positive for confusion. Exam: 15:52 Constitutional: This is a well developed, well nourished patient who is awake, alert, kb and in no acute distress. Head/Face: Normocephalic, atraumatic. Cardiovascular: Regular rate and rhythm with a normal S1 and S2. No gallops, murmurs, or rubs. No pulse deficits. Respiratory: Respirations even and unlabored. No increased work of breathing, no retractions or nasal flaring. Abdomen/GI: Soft, non-tender. No distention MS/ Extremity: Pulses equal, no cyanosis. Neurovascular intact. Full, normal range of motion. Neuro: Awake and alert, GCS 15, oriented to person, place, time, and situation. Moves all extremities. Normal gait. 15:52 Skin: Appearance: Color: jaundiced. Vital Signs: 11:37 BP 98 / 48; Pulse 62; Resp 17; Temp 97.8(TE); Pulse Ox 98% on R/A; Weight 102.51 kg; tw2 13:32 BP 90 / 48; Pulse 51; Resp 18 S; Pulse Ox 100% on R/A; ca1 13:56 BP 97 / 43 Supine; Pulse 48; Resp 18 S; Pulse Ox 100% on R/A; ca1 13:58 BP 93 / 56 Sitting; Pulse 51; Resp 18 S; Pulse Ox 100% on R/A; ca1 14:00 BP 91 / 50 Standing; Pulse 52; Resp 18 S; Pulse Ox 100% on R/A; ca1 15:00 BP 108 / 66; Pulse 50; Resp 16; Pulse Ox 99% ; sv 16:18 BP 93 / 51; Pulse 49; Resp 16; Pulse Ox 100% ; sv 18:31 BP 87 / 56; Pulse 52; Resp 17; Pulse Ox 98% on R/A; hb 19:36 BP 93 / 47; Pulse 49; Resp 18; Temp 98.0; Pulse Ox 100% on R/A; mg2 MDM: 11:52 Patient medically screened. kb 14:39 Data reviewed: vital signs, nurses notes. Data interpreted: Pulse oximetry: on room air kb is 100 %. Interpretation: normal. Counseling: I had a detailed discussion with the patient and/or guardian regarding: the historical points, exam findings, and any diagnostic results supporting the discharge/admit diagnosis, lab results, the need for further work-up and treatment in the hospital. Physician consultation: Carlos Hooper MD was contacted at 14:39, regarding admission, to the medical/surgical unit. patient's condition, and will see patient in ED. 06/19 11:52 Order name: Basic Metabolic Panel; Complete Time: 12:49 kb 06/19 11:52 Order name: CBC with Diff; Complete Time: 13:05 kb 06/19 11:52 Order name: Hepatic Function; Complete Time: 12:49 kb 06/19 11:52 Order name: Lipase; Complete Time: 12:49 kb 06/19 12:04 Order name: AMMONIA; Complete Time: 12:42 kb 06/19 12:28 Order name: CBC Smear Scan; Complete Time: 13:05 EDMS 06/19 14:46 Order name: Basic Metabolic Panel EDWA 06/19 14:46 Order name: Basic Metabolic Panel EDWA 06/19 14:47 Order name: Magnesium EDWA 06/19 14:47 Order name: Magnesium EDWA 06/19 14:47 Order name: Urinalysis EDWA 06/19 14:48 Order name: COVID-19 : Document "Date of Symptom Onset" if Symptomatic. sv 06/19 18:44 Order name: SARS-COV-2 RT PCR; Complete Time: 18:45 EDMS 06/19 11:52 Order name: IV Saline Lock; Complete Time: 13:20 kb 06/19 11:52 Order name: Labs collected and sent; Complete Time: 13:20 kb 06/19 11:52 Order name: Orthostatics; Complete Time: 14:05 kb 06/19 13:48 Order name: Orthostatics; Complete Time: 14:05 kb 06/19 14:46 Order name: Regular EDMS Administered Medications: 14:47 Drug: NS 0.9% 500 ml Route: IV; Rate: bolus; Site: left antecubital; sv 15:30 Follow up: Response: No adverse reaction; IV Status: Completed infusion; IV Intake: sv 500ml 14:47 Drug: Lactulose 30 grams Volume: 45 ml; Route: PO; sv 15:30 Follow up: Response: No adverse reaction sv 18:41 Drug: NS 0.9% 500 ml Route: IV; Rate: bolus; Site: left antecubital; hb Disposition: 06/20 08:03 Co-signature as Attending Physician, Jaspal Garcia MD I agree with the assessment and kdr plan of care. Disposition: 06/19/20 14:45 Hospitalization ordered by Carlos Hooper for Inpatient Admission. Preliminary diagnosis is Encephalopathy, unspecified - hepatic. - Bed requested for Telemetry/MedSurg (Inpatient). - Status is Inpatient Admission. mg2 - Condition is Stable. - Problem is an acute exacerbation. - Symptoms are unchanged. Signatures: [facility] Reyna Torres, TAMARA-C BREAD PACKER-Ava Hull, RN RN Jaspal Garcia MD MD [facility] Lien Denson, JENNIFER RN Angi Nichols, JENNIFER RN Ileana Hardy, JENNIFER RN tw2 Robin Oliver, JENNIFER RN mg2 Corrections: (The following items were deleted from the chart) 06/19 19:22 14:45 Hospitalization Ordered by Carlos Hooper MD for Inpatient Admission. Preliminary cg diagnosis is Encephalopathy, unspecified - hepatic. Bed requested for Telemetry/MedSurg (Inpatient). Status is Inpatient Admission. Condition is Stable. Problem is an acute exacerbation. Symptoms are unchanged. kb 19:25 19:22 06/19/2020 14:45 Hospitalization Ordered by Carlos Hooper MD for Inpatient cg Admission. Preliminary diagnosis is Encephalopathy, unspecified - hepatic. Bed requested for Telemetry/MedSurg (Inpatient). Status is Inpatient Admission. Condition is Stable. Problem is an acute exacerbation. Symptoms are unchanged. cg 19:43 19:25 06/19/2020 14:45 Hospitalization Ordered by Carlos Hooper MD for Inpatient mg2 Admission. Preliminary diagnosis is Encephalopathy, unspecified - hepatic. Bed requested for Telemetry/MedSurg (Inpatient). Status is Inpatient Admission. Condition is Stable. Problem is an acute exacerbation. Symptoms are unchanged.
--- NOTE | 2020-06-19 14:46 | ER ---
Nurse's Notes [facility] Name: Dorian Cruz Age: 70 yrs Sex: Male : 1950 Arrival Date: 06/19/2020 Time: 11:32 Bed 3 Private MD: Jan Kenney Diagnosis: Encephalopathy, unspecified-hepatic Presentation: 06/19 11:37 Chief complaint: pts sister states he is severely dehydration, since last Tuesday he has tw2 nauseous, since the kidney dr increased his diuretic and he lost 5 pounds a day since Tuesday and we cant get his electrolytes, he cant keep anything down. Coronavirus screen: nausea, vomiting. Client presents with at least one sign or symptom that may indicate coronavirus-19. Standard/surgical mask placed on the client. Provider contacted for isolation considerations. Ebola Screen: Patient denies travel to an Ebola-affected area in the 21 days before illness onset. Initial Sepsis Screen: Does the patient meet any 2 criteria? No. Patient's initial sepsis screen is negative. Does the patient have a suspected source of infection? No. Patient's initial sepsis screen is negative. Risk Assessment: Do you want to hurt yourself or someone else? Patient reports no desire to harm self or others. Onset of symptoms was June 19, 2020. 11:37 Method Of Arrival: Wheelchair tw2 11:37 Acuity: NGOC 2 tw2 Triage Assessment: 11:42 General: Appears ill, Behavior is calm, cooperative, appropriate for age. Pain: Denies tw2 pain. GI: Reports nausea, vomiting. Derm: Skin is jaundiced. Historical: - Allergies: 11:42 Codeine; tw2 - Home Meds: 11:42 furosemide 20 mg Oral tab [Active]; spironolactone 100 mg oral tab 1 tab once daily tw2 [Active]; lactulose 20 gram/30 mL Oral soln 30 mL 3 times per day [Active]; Carafate 1 gram Oral tab 1 tab 4 times per day [Active]; 12:26 torsemide 20 mg oral tab 3 tabs twice a day [Active]; spironolactone 50 mg Oral tab 1 sv tab 2 times per day [Active]; nadolol 20 mg oral tab 1 tab once daily [Active]; sucralfate 1 gram Oral tab 1 tab 2 times per day [Active]; Protonix 20 mg Oral TbEC 1 tab once daily [Active]; 12:27 lactulose 20 gram/30 mL Oral soln 30 mL 3 times per day [Active]; sv - PMHx: 11:42 Cirrhosis; Hepatitis; tw2 - PSHx: 11:42 Tonsillectomy; steel plate in left knee; tw2 - Immunization history:: Adult Immunizations. - Social history:: Smoking status: . Screenin:15 Abuse screen: Denies threats or abuse. Denies injuries from another. Nutritional sv screening: No deficits noted. Tuberculosis screening: No symptoms or risk factors identified. Fall Risk None identified. Assessment: 12:30 General: Appears in no apparent distress. Behavior is calm, cooperative. Pain: Denies hb pain. Neuro: Level of Consciousness is obeys commands, lethargic, Oriented to person, place, time, situation. Cardiovascular: Patient's skin is warm and dry. Respiratory: Airway is patent Respiratory effort is even, unlabored, Respiratory pattern is regular, symmetrical. GI: Reports nausea, vomiting. : No signs and/or symptoms were reported regarding the genitourinary system. EENT: No signs and/or symptoms were reported regarding the EENT system. Derm: Skin is dry, Skin is jaundiced, Skin temperature is warm. Musculoskeletal: No signs and/or symptoms reported regarding the musculoskeletal system. 13:45 Reassessment: Patient appears in no apparent distress at this time. No changes from hb previously documented assessment. Patient and/or family updated on plan of care and expected duration. Pain level reassessed. 14:45 Reassessment: Patient appears in no apparent distress at this time. No changes from hb previously documented assessment. Patient and/or family updated on plan of care and expected duration. Pain level reassessed. 16:00 Reassessment: Patient appears in no apparent distress at this time. Patient and/or hb family updated on plan of care and expected duration. Pain level reassessed. Patient is alert, oriented x 3, equal unlabored respirations, skin warm/dry/pink. 17:00 Reassessment: Patient appears in no apparent distress at this time. Patient and/or hb family updated on plan of care and expected duration. Pain level reassessed. Patient is alert, oriented x 3, equal unlabored respirations, skin warm/dry/pink. 18:00 Reassessment: Patient appears in no apparent distress at this time. No changes from hb previously documented assessment. Patient and/or family updated on plan of care and expected duration. Pain level reassessed. Patient is alert, oriented x 3, equal unlabored respirations, skin warm/dry/pink. 18:31 Reassessment: SBP 87, HR 50s. 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 hb Admission ordered, waiting room assignment at this time. Vital Signs: 11:37 BP 98 / 48; Pulse 62; Resp 17; Temp 97.8(TE); Pulse Ox 98% on R/A; Weight 102.51 kg; tw2 13:32 BP 90 / 48; Pulse 51; Resp 18 S; Pulse Ox 100% on R/A; ca1 13:56 BP 97 / 43 Supine; Pulse 48; Resp 18 S; Pulse Ox 100% on R/A; ca1 13:58 BP 93 / 56 Sitting; Pulse 51; Resp 18 S; Pulse Ox 100% on R/A; ca1 14:00 BP 91 / 50 Standing; Pulse 52; Resp 18 S; Pulse Ox 100% on R/A; ca1 15:00 BP 108 / 66; Pulse 50; Resp 16; Pulse Ox 99% ; sv 16:18 BP 93 / 51; Pulse 49; Resp 16; Pulse Ox 100% ; sv 18:31 BP 87 / 56; Pulse 52; Resp 17; Pulse Ox 98% on R/A; hb 19:36 BP 93 / 47; Pulse 49; Resp 18; Temp 98.0; Pulse Ox 100% on R/A; mg2 ED Course: 11:32 Patient arrived in ED. mr 11:33 Jan Kenney MD is Private Physician. mr 11:37 Arm band placed on. tw2 11:40 Triage completed. tw2 11:51 Reyna Torres FNP-C is [facility]. kb 11:51 Jaspal Garcia MD is Attending Physician. kb 12:06 Ava Michaels, JENNIFER is Primary Nurse. sv 12:15 Patient has correct armband on for positive identification. Placed in gown. Bed in low sv position. Call light in reach. Adult w/ patient. Pulse ox on. NIBP on. Door closed. Head of bed elevated. 12:15 Inserted saline lock: 20 gauge in left antecubital area, using aseptic technique. Blood sv collected. Flushed left antecubital with 5 ml normal saline. 14:45 Carlos Hooper MD is Hospitalizing Provider. kb 19:07 Primary Nurse role handed off by Ava Michaels, JENNIFER sv 19:27 Robin Oliver, RN is Primary Nurse. mg2 19:37 No provider procedures requiring assistance completed. Patient admitted, IV remains in mg2 place. Administered Medications: 14:47 Drug: NS 0.9% 500 ml Route: IV; Rate: bolus; Site: left antecubital; sv 15:30 Follow up: Response: No adverse reaction; IV Status: Completed infusion; IV Intake: sv 500ml 14:47 Drug: Lactulose 30 grams Volume: 45 ml; Route: PO; sv 15:30 Follow up: Response: No adverse reaction sv 18:41 Drug: NS 0.9% 500 ml Route: IV; Rate: bolus; Site: left antecubital; hb Intake: 15:30 IV: 500ml; Total: 500ml. sv Outcome: 14:45 Decision to Hospitalize by Provider. kb 19:27 Admitted to Med/surg accompanied by tech, via stretcher, room 203, with chart, Report mg2 called to JENNIFER Silva 19:36 Condition: stable mg2 19:43 Patient left the ED. mg2 Signatures: Reyna Torres, CARDIAC SPECIALIST-C CARDIAC SPECIALIST-Ckb Ava Michaels, RN JENNIFER Nichole Ingram NicholsAngi RN RN Ileana Hardy RN RN tw2 Robin Oliver, JENNIFER RODRIGUEZ [facility] Jaimie Dacosta RN RN ca1 Corrections: (The following items were deleted from the chart) 11:43 11:37 Pulse 62bpm; Resp 17bpm; Pulse Ox 98% RA; Temp 97.8F Temporal; 102.51 kg; tw2 tw2 19:37 19:27 Admitted to Med/surg mg2 mg2
--- NOTE | 2020-06-19 14:48 | P.HP ---
Certification for Inpatient Patient admitted to: Observation With expected LOS: <2 Midnights Patient will require the following post-hospital care: None Practitioner: I am a practitioner with admitting privileges, knowledge of patient current condition, hospital course, and medical plan of care. Services: Services provided to patient in accordance with Admission requirements found in Title 42 Section 412.3 of the Code of Federal Regulations Patient History Date of Service: 06/19/20 Reason for admission: dehydration, hepatic encephalopathy, hyperammonemia. 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 he reported a visit to his GI physician and his material liaison prior to this encounter and that his Aldactone dose was doubled for better volume management. he reported feeling weak more after this visit. he denied any fever, abd pain, diarrhea or cough. he seems slightly confused. he was noted to have elevated creatinine of 1.44 on labs and he also had anemia with hb of 11 and elevated ammonia of 123. Allergies Hydrocodone-Acetaminophen Adverse Reaction (Uncoded 09/12/18 11:19) CONFUSION Home medications list reviewed: Yes Home Medications: Lactulose [Cephulac*] 30 ml PO Q8HR #2000 ml 02/23/20 Spironolactone [Aldactone*] 50 mg PO BID 03/12/20 Pantoprazole [Protonix Tab] 40 mg PO BIDAC #60 tab 04/29/20 - Past Medical/Surgical History Diabetic: No -: Cirrhosis secondary to hepatitis -: Left knee surgery Psychosocial/ Personal History: Patient lives at home alone - Social History Smoking Status: Unknown if ever smoked Alcohol use: No CD- Drugs: No Caffeine use: Yes Place of Residence: Home Review of Systems General: Weakness, Malaise Eyes: Unremarkable ENT: Unremarkable Respiratory: Unremarkable Cardiovascular: Unremarkable Gastrointestinal: Nausea, Vomiting, Unremarkable Genitourinary: Unremarkable Musculoskeletal: Unremarkable Integumentary: Unremarkable Neurological: Confusion Physical Examination - Physical Exam General: Alert, Cooperative, Confused HEENT: Atraumatic, Normocephalic Neck: Supple Respiratory: Clear to auscultation bilaterally Cardiovascular: No edema, Regular rate/rhythm, Normal S1 S2 Gastrointestinal: Soft and benign Musculoskeletal: No swelling Neurological: Normal speech, Normal strength at 5/5 x4 extr, Normal affect - Studies Laboratory Data (last 24 hrs) 06/19/20 12:15: WBC 6.60, Hgb 11.6 L, Hct 33.9 L, Plt Count 105 L 06/19/20 12:15: Sodium 140, Potassium 3.6, BUN 31 H, Creatinine 1.44 H, Glucose 129 H, Total Bilirubin 3.5 H, AST 47 H, ALT 36, Alkaline Phosphatase 143 H, Lipase 262 Assessment and Plan - Plan 1.Dehyration: deemed due to volume loss from his vomiting episode and poor intake of fluid. we will continue iv hydration with isotonic fluid for now. we will monitor volume status closely and hold diuretic dose. 2.hepatic encephalopathy: he is s/p TIPS procedure and this could be confounding issues. we will add rifaximin to his lactulose therapy as he has elevated ammonia of 123. we will follow his levels closely. 3.hx of GI bleed: we will continue pantoprazole. 4.Elevated creatinine: His creatinine is elevated at 1.44. he does not meet criteria for SANYA as his last creatinine was 1.20 in May 19 2020. we will hydrate and monitor closely. Discharge Plan: Home - Advance Directives Does patient have a Living Will: No Does patient have a Durable POA for Healthcare: No
[2020-06-19] MEDS ORDERED: NA CHLORIDE 0.9% 500 ML ONE ×2 (14:54→18:53)
[2020-06-19] MEDS ORDERED: LACTULOSE 20 GM/30 ML UCUP ONE (14:54)
[2020-06-19] MEDS: NEOMYCIN SULFATE 500 MG TAB PO SCH (18:00)
[2020-06-19] MEDS: NA CHLORIDE 0.9% 1,000 ML IV SCH (20:43)
[2020-06-19] MEDS: PANTOPRAZOLE 40MG TABLET PO SCH (20:44)
[2020-06-19] MEDS: LACTULOSE 20 GM/30 ML UCUP PO SCH (20:45)
[2020-06-19] MEDS ORDERED: Rifaximin 550 MG Tab PO SCH (21:00)
[2020-06-20] MEDS: NEOMYCIN SULFATE 500 MG TAB PO SCH
[2020-06-20] MEDS: LACTULOSE 20 GM/30 ML UCUP PO SCH ×3 (01:04→16:29)
[2020-06-20 01:48] LABS: Urine Appearance CLEAR (Clear); Urine Bilirubin NEGATIVE (Negative); Urine Blood NEGATIVE (Negative); Urine Color YELLOW (Yellow); Urine Glucose NEGATIVE (Negative); Urine Protein NEGATIVE (Negative); Urine Specific Gravity 1.015 (1.005-1.030); Urine pH 6.5 (5.0-7.0)
[2020-06-20 02:19] LABS: Urine Microscopic Reflex NO UMIC
[2020-06-20 03:19] VITALS: BMI 32.4
[2020-06-20] MEDS: NA CHLORIDE 0.9% 1,000 ML IV SCH (04:20)
[2020-06-20 06:41] LABS: Magnesium 2.4 mg/dL (1.8-2.4); Potassium 3.6 mmol/L (3.5-5.1)
[2020-06-20] MEDS: PANTOPRAZOLE 40MG TABLET PO SCH ×2 (08:15→16:29)
[2020-06-20] MEDS ORDERED: POTASSIUM CL SA 10 MEQ TAB PO ONE (09:00)
--- NOTE | 2020-06-20 09:06 | P.PN ---
Subjective Date of Service: 06/20/20 Primary Care Provider: Dr. Kenney; Hepatology-Dr. Canales; Nephrology-Dr. Warner Chief Complaint: dehydration, hepatic encephalopathy, hyperammonemia. Subjective: Improving (Patient mentation within normal range. Blood pressure still slightly low. Patient was hydrated overnight with IV fluids.) Physical Examination - Vital Signs Temperature: 97.6 F Blood Pressure: 99/50 Pulse: 56 Respirations: 16 Pulse Ox (%): 97 - Studies Laboratory Data (last 24 hrs) 06/19/20 12:15: WBC 6.60, Hgb 11.6 L, Hct 33.9 L, Plt Count 105 L 06/19/20 12:15: Sodium 140, Potassium 3.6, BUN 31 H, Creatinine 1.44 H, Glucose 129 H, Total Bilirubin 3.5 H, AST 47 H, ALT 36, Alkaline Phosphatase 143 H, Lipase 262 Assessment & Plan Discharge Plan: Home Plan to discharge in: 24 Hours Physician Review Additional Text: Physical exam: Patient alert, cooperative. No significant distress. Blood pressures around 9 0-110 systolic. Heart: Regular rate and rhythm Lungs: Clear to auscultation Abdomen: Soft nontender nondistended Extremities: Show no focal deficits. No significant edema. Dry skin noted. Impression: Weakness secondary to acute on chronic renal disease stage III likely with dehydration Hepatic encephalopathy with underlying cirrhosis History of GI bleed related to gastric varices with recent TIPS procedure Anemia of chronic disease with chronic thrombocytopenia Plan: Weakness secondary to acute on chronic renal disease stage III likely with dehydration: Patient improved. Patient likely dehydrated. He had seen his boring mill operator for metal recently after TIPS procedure. His diuretic therapy was increased at that time. His Aldactone was increased to 50 mg 2 pills twice daily and torsemide increased to 20 mg 4 pills twice daily. Both medications have been held in this stay. We will also continue to hold nadolol. We will continue with IV fluids. We will start midodrine 5 mg TID. Will consult nephrology here for further recommendation. Physical therapy to ambulate. Orthostatics this am: lying 95/46 with a rate of around 55, sitting 95/52 with a rate of 59, and standing 89/46 with a rate of 50. We will continue to monitor closely. Await further recommendations from nephrology. Patient likely needs to be monitored overnight. Likely discharge in the next 24 hours. Cirrhosis with history of hepatic encephalopathy: Ammonia level was elevated but no confusion noted. Continue lactulose and Xifaxan. He has reported that Xifaxan is very expensive. Recommend that this be further addressed as an outpatient to see if this can be provided to him with the help of his stitcher utility. History of GI bleed related to gastric varices with recent TIPS procedure: Continue Protonix Anemia of chronic disease with chronic thrombocytopenia: Globin and platelet count stable. Monitor closely. Time Spent Managing Pts Care (In Minutes): 55
[2020-06-20] MEDS: MIDODRINE HCL 5 MG TABLET PO SCH ×3 (09:27→20:27)
[2020-06-20] MEDS ORDERED: NA CHLORIDE 0.9% 1,000 ML IV SCH (10:00)
[2020-06-20] MEDS: SUCRALFATE 1 GM TABLET PO SCH (20:27)
[2020-06-21] MEDS: LACTULOSE 20 GM/30 ML UCUP PO SCH ×4 (00:42→17:14)
[2020-06-21 06:17] LABS: Potassium 3.8 mmol/L (3.5-5.1)
[2020-06-21] MEDS ORDERED: PANTOPRAZOLE 40MG TABLET PO SCH (07:30)
[2020-06-21] MEDS: CYANOCOBALAMIN 1,000 MCG TAB PO SCH (08:42)
[2020-06-21] MEDS: SUCRALFATE 1 GM TABLET PO SCH ×2 (08:45→21:11)
[2020-06-21] MEDS: MIDODRINE HCL 5 MG TABLET PO SCH ×3 (08:45→21:11)
[2020-06-21] MEDS: SAW PALMETTO 500 MG PO SCH (08:51)
[2020-06-21] MEDS ORDERED: HOME MED 1 EA UNK (Pantoprazole Sodium [Protonix] 20 MG Tablet.Dr) PO SCH (09:00)
[2020-06-21] MEDS ORDERED: TORSEMIDE 20 MG TAB PO SCH (09:00)
[2020-06-21] MEDS ORDERED: POTASSIUM CL SA 10 MEQ TAB PO ONE (09:00)
--- NOTE | 2020-06-21 09:12 | P.DS ---
Admission Date: 06/20/20 Discharge Date: 06/21/20 Primary Care Provider: Dr. Kenney; Hepatology-Dr. Canales; Nephrology-Dr. Warner Disposition: ROUTINE DISCHARGE Discharge Condition: GOOD Reason for Admission: dehydration, hepatic encephalopathy, hyperammonemia. Consultations: Nephrology-Dr. 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 Patient reported that he recent patient reports that he recently saw his tree care foreman where he increased his Aldactone and Demadex. Both medication were doubled. Patient found to have acute on chronic renal disease likely dehydration. Ammonia level was elevated. Patient admitted for treatment. Hospital Course: Patient presented with patient presented with weakness secondary to acute on chronic renal disease stage III likely with dehydration. This may have been related to recent increase in medication by his tree care foreman. Both of his di uretic therapy were doubled. Both medications were held during his stay. Patient received IV fluids with improvement. Patient required midodrine. Patient also reports that he recently had a TIPS procedure due to his cirrhosis and history of gastric varices. Patient has done well. At discharge patient ambulating well without any orthostatic changes. At discharge patient will continue with a 1500 cc/day fluid restriction and low-salt diet. Recommend to monitor his weight daily. If his weight increases by more than 5 pounds he is to contact his PCP or tree care foreman for further recommendation. At discharge patient will continue with midodrine 5 mg 1 pill 3 times a day to maintain his blood pressure. Recommend to hold medication if blood pressure systolic greater than 130. As for his diuretic therapy, patient will continue with lower doses of Aldactone and Demadex. Patient will continue with Aldactone 25 mg daily and Demadex 20 mg daily. He is to hold medication if blood pressure systolic less than 110 or if no significant edema to the lower extremity/ascites. Recommend follow-up with PCP in 1 week to follow-up hospitalization and to follow his care. Also recommend follow-up with nephrology in 1 week to follow-up his hospitalization and to further adjust his medication. Education on chronic renal disease, hypertension, orthostatic hypotension provided. Recommend to recheck labBMP in 1 week to monitor his renal function. Fall precautions in place. Patient with cirrhosis. History of hepatic encephalopathy. Patient recently had TIPS procedure for his gastric varices. No bleeding noted at this time. Ammonia level was initially elevated but no confusion noted. At discharge patient will continue with lactulose 20 g 4 times a day. He is to maintain 3-4 bowel movements per day. Patient is to get Xifaxan twice daily. He is getting patient assistance for this through the help of his GI doctor. Recommend follow-up with GI to further ensure in getting his medication. As mentioned patient with history of GI bleed with prior gastric varices. Patient with recent TIPS procedure. No bleeding noted at this time. At discharge patient will continue with Protonix 20 mg daily along with Carafate twice daily. Patient also takes nadolol 20 mg daily for his varices. Blood pressures have been low therefore medication has been held. Patient may continue his medication but hold if blood pressure systolic less than 110. Further adjustment in medication can be done by GI or his PCP. Patient with anemia of chronic disease and chronic thrombocytopenia. Overall stable. Recommend to recheck CBC in 2 to 4 weeks to monitor his progress. Patient will continue with his vitamin supplementation including B12. Vital Signs/Physical Exam: Temp Pulse Resp BP Pulse Ox 98.0 F 63 18 114/56 L 98 06/21/20 08:00 06/21/20 08:43 06/21/20 08:00 06/21/20 08:43 06/21/20 08:00 General: Alert, In no apparent distress, Oriented x3, Cooperative HEENT: Atraumatic Neck: Supple Respiratory: Clear to auscultation bilaterally, Normal air movement Cardiovascular: Normal pulses, Regular rate/rhythm Gastrointestinal: Normal bowel sounds, No tenderness, No masses, No rebound, No guarding Musculoskeletal: No erythema, No tenderness, No warmth Integumentary: No tenderness/swelling Neurological: Normal speech, Normal strength at 5/5 x4 extr, Normal tone, Normal affect, Other (Patient appears better hydrated ) Laboratory Data at Discharge: WBC 6.60 K/uL (4.3-10.9) 06/19/20 12:15 Hgb 11.6 g/dL (13.6-17.9) L 06/19/20 12:15 Hct 33.9 % (39.6-49.0) L 06/19/20 12:15 Plt Count 105 K/uL (152-406) L 06/19/20 12:15 Sodium 142 mmol/L (136-145) 06/21/20 05:16 Potassium 3.8 mmol/L (3.5-5.1) 06/21/20 05:16 BUN 20 mg/dL (7-18) H 06/21/20 05:16 Creatinine 1.13 mg/dL (0.55-1.3) 06/21/20 05:16 Glucose 105 mg/dL (74-106) 06/21/20 05:16 Magnesium 2.4 mg/dL (1.8-2.4) 06/20/20 05:54 Total Bilirubin 3.5 mg/dL (0.2-1.0) H 06/19/20 12:15 AST 47 U/L (15-37) H 06/19/20 12:15 ALT 36 U/L (12-78) 06/19/20 12:15 Alkaline Phosphatase 143 U/L (45-117) H 06/19/20 12:15 Lipase 262 U/L (73-393) 06/19/20 12:15 Home Medications: Cyanocobalamin (Vitamin B-12) [Vitamin B-12] 1 cap PO DAILY 06/20/20 Lactulose 30 ml PO QID 06/20/20 Pantoprazole Sodium [Protonix] 1 tab PO DAILY 06/20/20 Saw [place] 1 tab PO DAILY 06/20/20 Sucralfate [Carafate*] 1 tab PO BID 06/20/20 Ubidecarenone/Vit E Acet [Co Q-10 100 mg Softgel] 1 cap PO DAILY 06/20/20 nadoloL [Nadolol] 1 tab PO DAILY 06/20/20 Midodrine HCl [Proamatine*] 5 mg PO TID #90 tab 06/21/20 Spironolactone [Aldactone] 25 mg PO DAILY #30 tab 06/21/20 Torsemide [Demadex*] 20 mg PO DAILY #30 tab 06/21/20 New Medications: Spironolactone [Aldactone] 25 mg PO DAILY #30 tab Torsemide [Demadex*] 20 mg PO DAILY #30 tab Midodrine HCl [Proamatine*] 5 mg PO TID #90 tab Physician Discharge Instructions: Patient presented with patient presented with weakness secondary to acute on chronic renal disease stage III likely with dehydration. This may have been related to recent increase in medication by his tree care foreman. Both of his diuretic therapy were doubled. Both medications were held during his stay. Patient received IV fluids with improvement. Patient required midodrine. Patient also reports that he recently had a TIPS procedure due to his cirrhosis and history of gastric varices. Patient has done well. At discharge patient ambulating well without any orthostatic changes. At discharge patient will continue with a 1500 cc/day fluid restriction and low-salt diet. Recommend to monitor his weight daily. If his weight increases by more than 5 pounds he is to contact his PCP or tree care foreman for further recommendation. At discharge patient will continue with midodrine 5 mg 1 pill 3 times a day to maintain his blood pressure. Recommend to hold medication if blood pressure systolic greater than 130. As for his diuretic therapy, patient will continue with lower doses of Aldactone and Demadex. Patient will continue with Aldactone 25 mg daily and Demadex 20 mg daily. He is to hold medication if blood pressure systolic less than 110 or if no significant edema to the lower extremity/ascites. Recommend follow-up with PCP in 1 week to follow-up hospitalization and to follow his c are. Also recommend follow-up with nephrology in 1 week to follow-up his hospitalization and to further adjust his medication. Education on chronic renal disease, hypertension, orthostatic hypotension provided. Recommend to recheck labBMP in 1 week to monitor his renal function. Fall precautions in place. Patient with cirrhosis. History of hepatic encephalopathy. Patient recently had TIPS procedure for his gastric varices. No bleeding noted at this time. Ammonia level was initially elevated but no confusion noted. At discharge patient will continue with lactulose 20 g 4 times a day. He is to maintain 3-4 bowel movements per day. Patient is to get Xifaxan twice daily. He is getting patient assistance for this through the help of his GI doctor. Recommend follow-up with GI to further ensure in getting his medication. As mentioned patient with history of GI bleed with prior gastric varices. Patient with recent TIPS procedure. No bleeding noted at this time. At discharge patient will continue with Protonix 20 mg daily along with Carafate twice daily. Patient also takes nadolol 20 mg daily for his varices. Blood pressures have been low therefore medication has been held. Patient may continue his medication but hold if blood pressure systolic less than 110. Further adjustment in medication can be done by GI or his PCP. Patient with anemia of chronic disease and chronic thrombocytopenia. Overall stable. Recommend to recheck CBC in 2 to 4 weeks to monitor his progress. Diet: AHA Activity: Fall precautions Followup: Jan Kenney MD [Primary Care Provider] - Time spent managing pt's care (in minutes): 55
[2020-06-21] MEDS: PANTOPRAZOLE 40MG TABLET PO SCH (09:16)
--- NOTE | 2020-06-21 11:03 | P.PN ---
Subjective Date of Service: 06/21/20 Primary Care Provider: Dr. Kenney; Hepatology-Dr. Canales; Nephrology-Dr. Warner Chief Complaint: dehydration, hepatic encephalopathy, hyperammonemia. Subjective: Improving, Other (When I saw the patient earlier today he was without any significant nausea or vomiting. When nephrology went by she had reported that he was having some nausea and poor BM. Patient able to ambulate appropriately.) Physical Examination - Vital Signs Temperature: 98.0 F Blood Pressure: 114/56 Pulse: 63 Respirations: 18 Pulse Ox (%): 98 Assessment & Plan Discharge Plan: Home Plan to discharge in: 24 Hours Physician Review Additional Text: Physical exam: Patient alert, cooperative. No significant distress. Blood pressure improved. Heart: Regular rate and rhythm Lungs: Clear to auscultation Abdomen: Soft nontender nondistended Extremities: Show no focal deficits. No significant edema. Dry skin noted. Impression: Weakness secondary to acute on chronic renal disease stage III likely with dehydration Hepatic encephalopathy with underlying cirrhosis History of GI bleed related to gastric varices with recent TIPS procedure Anemia of chronic disease with chronic thrombocytopenia Plan: Weakness secondary to acute on chronic renal disease stage III likely with dehydration: Patient continues to improve. Continue oral hydration. Spoke with nephrology. Nephrology recommends to hold discharge at least 1 more day. She wants to make sure patient is well-hydrated. Patient was having some nausea earlier. We will continue with IV medication as needed. Will increase lactulose to every 6 hours to ensure good bowel movement. Patient alert, cooperative. Continue to hold diuretic therapy. Continue physical therapy. Continue to hold nadolol. Continue midodrine. We will continue to reassess. Anticipate discharge for tomorrow. Will discuss further with nephrology. Cirrhosis with history of hepatic encephalopathy: Patient improved. Continue lactulose. Will increase lactulose every 6 hours. He has reported that Xifaxan is very expensive. He is trying to get patient assistance through his GI specialist to get Xifaxan as an outpatient. History of GI bleed related to gastric varices with recent TIPS procedure: Continue Protonix and Carafate Anemia of chronic disease with chronic thrombocytopenia: Labs stable. Will monitor closely. Time Spent Managing Pts Care (In Minutes): 55
[2020-06-22] MEDS: LACTULOSE 20 GM/30 ML UCUP PO SCH ×4 (00:01→17:03)
[2020-06-22 06:38] LABS: Potassium 4.1 mmol/L (3.5-5.1)
[2020-06-22] MEDS: SUCRALFATE 1 GM TABLET PO SCH ×2 (08:13→21:56)
[2020-06-22] MEDS: MIDODRINE HCL 5 MG TABLET PO SCH ×3 (08:13→21:56)
[2020-06-22] MEDS: PANTOPRAZOLE 40MG TABLET PO SCH (08:14)
[2020-06-22] MEDS: CYANOCOBALAMIN 1,000 MCG TAB PO SCH (08:14)
[2020-06-22] MEDS: SAW PALMETTO 500 MG PO SCH (08:14)
--- NOTE | 2020-06-22 10:59 | P.PN ---
Subjective Date of Service: 06/22/20 Primary Care Provider: Dr. Kenney; Hepatology-Dr. Canales; Nephrology-Dr. Warner Chief Complaint: dehydration, hepatic encephalopathy, hyperammonemia. Subjective: Improving Physical Examination - Vital Signs Temperature: 98.3 F Blood Pressure: 103/54 Pulse: 65 Respirations: 16 Pulse Ox (%): 95 Assessment & Plan Discharge Plan: Home Plan to discharge in: 24 Hours Physician Review Additional Text: Physical exam: Patient alert, cooperative. No significant distress. Blood pressure improved and stable. Heart: Regular rate and rhythm Lungs: Clear to auscultation Abdomen: Soft nontender nondistended Extremities: Show no focal deficits. No significant edema. Dry skin noted. Impression: Weakness secondary to acute on chronic renal disease stage III likely with dehydration Hepatic encephalopathy with underlying cirrhosis History of GI bleed related to gastric varices with recent TIPS procedure Anemia of chronic disease with chronic thrombocytopenia Plan: Weakness secondary to acute on chronic renal disease stage III likely with dehydration: Patient continues to improve. Continue oral hydration. Creatinine slightly elevated. Will check orthostatics again today. Continue to hold diuretic therapy. Physical therapy to ambulate. Continue lactulose. Patient had BM this morning. Also continue to hold nadolol. Await nephrology evaluation and recommendation. Possible discharge as early as today but still may require 1 more day of monitoring. I will turn the service over to the hospitalist team tomorrow. I will go plan of care with him. PCP-Dr. Kenney will take over tomorrow. Cirrhosis with history of hepatic encephalopathy: Patient improved. Continue lactulose. He has reported that Xifaxan is very expensive. He is trying to get patient assistance through his GI specialist to get Xifaxan as an outpatient. History of GI bleed related to gastric varices with recent TIPS procedure: Continue Protonix and Carafate Anemia of chronic disease with chronic thrombocytopenia: Labs stable. Will monitor closely. Time Spent Managing Pts Care (In Minutes): 55
[2020-06-23] MEDS: LACTULOSE 20 GM/30 ML UCUP PO SCH ×4 (00:29→17:49)
[2020-06-23] MEDS: SUCRALFATE 1 GM TABLET PO SCH ×2 (09:00→21:43)
[2020-06-23] MEDS: SAW PALMETTO 500 MG PO SCH (09:00)
[2020-06-23] MEDS: CYANOCOBALAMIN 1,000 MCG TAB PO SCH (09:34)
[2020-06-23] MEDS: MIDODRINE HCL 5 MG TABLET PO SCH ×3 (09:35→21:43)
[2020-06-23] MEDS: PANTOPRAZOLE 40MG TABLET PO SCH (09:35)
--- NOTE | 2020-06-23 13:03 | P.CNS ---
Date of Consult: 06/21/20 Primary Care Provider: Dr. Kenney; Hepatology-Dr. Canales; Nephrology-Dr. Warner Chief Complaint: dehydration, hepatic encephalopathy, hyperammonemia. History of Present Illness: Pt is a 70 y/o male with past medical hx of cirrhosis, hypertension who presented with complaints of nausea, vomiting and generalized weakness. Of note, pts diuretics were recently increased. On arrival pt was noted to have an SANYA with an elevated creatinine of 0.9 to 1.0. Ammonia level was 123. Pt started on lactulose and rifaximin.Pt was starte don ivf x 1 with some improvement in SANYA. Renal has been consulted for SANYA. Denies amy nsaid use, contrast exposure, recent infections or illnesses Allergies codeine Adverse Reaction (Verified 06/20/20 03:35) Nausea/Vomiting Home Medications: Cyanocobalamin (Vitamin B-12) [Vitamin B-12] 1 cap PO DAILY 06/20/20 Lactulose 30 ml PO QID 06/20/20 Pantoprazole Sodium [Protonix] 1 tab PO DAILY 06/20/20 Saw [place] 1 tab PO DAILY 06/20/20 Sucralfate [Carafate*] 1 tab PO BID 06/20/20 Ubidecarenone/Vit E Acet [Co Q-10 100 mg Softgel] 1 cap PO DAILY 06/20/20 nadoloL [Nadolol] 1 tab PO DAILY 06/20/20 Midodrine HCl [Proamatine*] 5 mg PO TID #90 tab 06/21/20 Spironolactone [Aldactone] 25 mg PO DAILY #30 tab 06/21/20 Torsemide [Demadex*] 20 mg PO DAILY #30 tab 06/21/20 - Past Medical/Surgical History Diabetic: No -: Cirrhosis secondary to hepatitis -: Left knee surgery Psychosocial/ Personal History: Patient lives at home alone - Social History Alcohol use: No CD- Drugs: No Caffeine use: No Place of Residence: Home Review of Systems General: Unremarkable Eyes: Unremarkable ENT: Unremarkable Respiratory: Unremarkable Cardiovascular: Unremarkable Gastrointestinal: Nausea, Vomiting Genitourinary: Unremarkable Musculoskeletal: Unremarkable Integumentary: Unremarkable Neurological: Unremarkable Physical Examination Temp Pulse Resp BP Pulse Ox 97.4 F 70 17 98/54 L 99 06/23/20 12:00 06/23/20 12:00 06/23/20 12:00 06/23/20 12:00 06/23/20 12:00 General: Alert, Oriented x3 HEENT: Atraumatic, PERRLA, Mucous membr. moist/pink, EOMI, Sclerae nonicteric Neck: Supple, 2+ carotid pulse no bruit, No LAD, Without JVD or thyroid abnormality Respiratory: Clear to auscultation bilaterally, Normal air movement Cardiovascular: Regular rate/rhythm, Normal S1 S2 Capillary refill: <2 Seconds Gastrointestinal: Normal bowel sounds, No tenderness Musculoskeletal: No tenderness Integumentary: No rashes Neurological: Normal gait, Normal speech, Normal tone, Normal affect Lymphatics: No axilla or inguinal lymphadenopathy Conclusions/Impression: Problems Generalized weakness form hypovolemia and dehydration SANYA mostly prerenal from overdiuresis with associated nausea and vomiting Hyperammonemia Nausea and vomiting Hypertension Liver cirrhosis PLAN Will start albumin 25gm q 4hr for 1 day Continue to hold diuretics Strict i/o Avoid contrasted studies. Antiemetics for nausea and vomiting Lactulose for hyperammonemia GI on board for lover cirrhosis and hyperammonemia Thank you for this interesting consult. Will continue to follow.
[2020-06-23 14:07] LABS: Potassium 4.1 mmol/L (3.5-5.1)
[2020-06-24] MEDS: LACTULOSE 20 GM/30 ML UCUP PO SCH ×4 (00:58→17:02)
[2020-06-24 05:57] LABS: Absolute Lymphocytes (CBC) 1.2 K/uL (0.7-4.9); Basophils % 0.5 % (0-1.3); Hematocrit 26.6 % (39.6-49.0); Lymphocytes % 17.8 % (15.3-44.8); MPV 8.8 fL (7.6-11.3); RBC Red Blood Cell Count 2.54 M/uL (4.33-5.43)
[2020-06-24 06:08] LABS: Magnesium 2.4 mg/dL (1.8-2.4); Potassium 4.3 mmol/L (3.5-5.1)
[2020-06-24 06:52] LABS: White Blood Cell Scan OK (OK)
[2020-06-24 06:53] LABS: Blood Morphology Comment NOTED (NOT SEEN); Macrocytosis 1+; Platelet Estimate DECR
[2020-06-24] MEDS: SUCRALFATE 1 GM TABLET PO SCH ×2 (08:04→21:43)
[2020-06-24] MEDS: MIDODRINE HCL 5 MG TABLET PO SCH ×3 (08:04→21:43)
[2020-06-24] MEDS: CYANOCOBALAMIN 1,000 MCG TAB PO SCH (08:04)
[2020-06-24] MEDS: SAW PALMETTO 500 MG PO SCH (08:05)
[2020-06-24] MEDS: PANTOPRAZOLE 40MG TABLET PO SCH (08:05)
--- NOTE | 2020-06-24 09:28 | P.PN ---
Date of Service: 06/23/20 Subjective Subjective: Patient continues to improve. Patient looks well and possible discharge today. However, PCP will come by and will discuss the case with him. Physical Examination - Vital Signs reviewed Physical exam: Patient alert, cooperative. More awake & alert; No significant distress. Blood pressure improved and stable. Heart: Regular rate and rhythm Lungs: Clear to auscultation Abdomen: Soft nontender nondistended Extremities: Show no focal deficits. No significant edema. Dry skin noted Assessment & Plan Assessment: 1. Weakness secondary to acute on chronic renal disease stage III likely with dehydration 2. Hepatic encephalopathy with underlying cirrhosis 3. History of GI bleed related to gastric varices with recent TIPS procedure 4. Anemia of chronic disease with chronic thrombocytopenia Plan: 1. Continue oral hydration. 2. Creatinine slightly elevated. 3. Will check orthostatics again today. 4. Continue to hold diuretic therapy. 5. Physical therapy to ambulate. 6. Continue lactulose. 7. Patient continues with diarrhea 8. Also continue to hold nadolol. 9. Await nephrology evaluation and recommendation. 10. Possible discharge as early as today but still may require 1 more day of monitoring. 11. Spoke with Dr. Kenney. He will take over in the morning. He does not feel patient is at baseline was to hold discharge. Will follow his recommendations. 12. Continue with Rifaximin 13. Continue Protonix and Carafate
[2020-06-24] MEDS ORDERED: LACTULOSE 20 GM/30 ML UCUP PR ONE (09:45)
--- NOTE | 2020-06-24 20:03 | PN ---
Date of Progress Note: 06/24/2020 The patient has had lactulose enema with good result. Apparently, had some obstipation since then. He cleared the significant amount of stool and feels like he needs to go again. Perhaps, this ____ as far as his overall state is concerned as he continues to deteriorate somewhat. His ammonia l evel has increased. His H and H have dropped. His orientation is variable, although he mobilizes an d does eat some. His blood pressure still shows some postural hypotension. We will therefore increa se his midodrine to 10 mg 3 times a day. Continue to hold his Aldactone and Demadex. His kidney fun ction seemed to stabilize somewhat. We will monitor him again in the morning with his blood work is concerned and consult Dr. Botello, has seen him in relatively recent past when he did the EGD prior to his procedure. The patient states he feels that the diuresis with the increased dose res ulted in some of his symptoms and we will continue to hold as mentioned above until further stabiliza tion. HR/MODL Voice ID: [id number] Report ID: [id number]
[2020-06-24] MEDS ORDERED: Rifaximin 550 MG Tab PO SCH (21:00)
[2020-06-25 00:40] VITALS: O2SAT 95
[2020-06-25] MEDS: LACTULOSE 20 GM/30 ML UCUP PO SCH ×4 (00:43→18:06)
[2020-06-25 06:18] LABS: Absolute Lymphocytes (CBC) 1.2 K/uL (0.7-4.9); Basophils % 0.6 % (0-1.3); Hematocrit 28.1 % (39.6-49.0); Lymphocytes % 21.8 % (15.3-44.8); MPV 8.3 fL (7.6-11.3); RBC Red Blood Cell Count 2.67 M/uL (4.33-5.43)
[2020-06-25 07:00] LABS: ALT/SGPT 35 U/L (12-78); AST/SGOT 38 U/L (15-37); Albumin 2.3 g/dL (3.4-5.0); Alkaline Phosphatase 111 U/L (45-117); BUN Blood Urea Nitrogen 20 mg/dL (7-18); Bicarbonate 27 mmol/L (21-32); Bilirubin Total 2.6 mg/dL (0.2-1.0); Glucose Level 120 mg/dL (74-106); Magnesium 2.4 mg/dL (1.8-2.4); Potassium 3.9 mmol/L (3.5-5.1); Protein, Total 4.9 g/dL (6.4-8.2); Sodium Level 138 mmol/L (136-145)
[2020-06-25] MEDS ORDERED: POTASSIUM CL SA 10 MEQ TAB PO ONE (09:00)
[2020-06-25] MEDS ORDERED: SAW PALMETTO 500 MG PO SCH (09:00)
[2020-06-25] MEDS: SUCRALFATE 1 GM TABLET PO SCH (09:33)
[2020-06-25] MEDS: MIDODRINE HCL 5 MG TABLET PO SCH ×2 (09:33→14:11)
[2020-06-25] MEDS: PANTOPRAZOLE 40MG TABLET PO SCH (09:33)
[2020-06-25] MEDS: CYANOCOBALAMIN 1,000 MCG TAB PO SCH (09:33)
[2020-06-25 18:19] VITALS: BP 108/54; TEMP 97.8
--- NOTE | 2020-06-25 22:10 | PN ---
Date of Progress Note: 06/25/2020 The patient seems much better, both physically and mentally and his lab work is much improved as well . His CBC is stabilized and slightly elevated today with variables I feel are related to his hydrati on. His renal function is stabilized and is normal. His ammonia level is also better. He has had a couple of bowel movements today, so I think the lactulose pills is correct for him. Differences in the medication list are the increased midodrine 2.5 mg 3 times a day to 10 mg t.i.d., and his blood p ressure has stabilized. He was instructed to hold his aldactone and Demadex unless his blood pressur e is over 120 or he gains more than 5 pounds. Otherwise, he is to continue on the same medication an d see him in the office in 48 hours to be seen by his manager field service in 10 days. He was discharged sta ble in fair condition given his underlying disease process. HR/MODL Voice ID: [id number] Report ID: [id number]
== END 2020-06-25 20:41 | disposition home or self-care (01) | DRG 918 ==
LOC: ER 11:29 → ERHOLD 14:44 → 2ND 19:37 → OBSVTOIN 06-20 13:21
PROVIDERS: ADMIT Family Medicine; ATTEND Family Medicine
DX: T50.0X1A Poisoning by mineralocorticoids and their antagonists, accidental (unintentional), initial encounter (principal); N17.9 Acute kidney failure, unspecified; E72.20 Disorder of urea cycle metabolism, unspecified; E86.0 Dehydration; K72.90 Hepatic failure, unspecified without coma; I12.9 Hypertensive chronic kidney disease with stage 1 through stage 4 chronic kidney disease, or unspecified chronic kidney disease; N18.30 Chronic kidney disease, stage 3 unspecified; E86.1 Hypovolemia; D69.6 Thrombocytopenia, unspecified; K74.60 Unspecified cirrhosis of liver; T50.1X1A Poisoning by loop [high-ceiling] diuretics, accidental (unintentional), initial encounter; D64.9 Anemia, unspecified; Z88.5 Allergy status to narcotic agent; Z79.899 Other long term (current) drug therapy; Z60.2 Problems related to living alone; Z20.822 Contact with and (suspected) exposure to COVID-19
CPT/HCPCS: 36415; 80048; 80053; 80076; 81003; 82140; 82248; 82274; 82607; 82746; 83540; 83690; 83735; 85025; 96360; 97116; 97161; 97530; 99285; G0378; J2405; J7030; J7040; U0003

== ENCOUNTER 2020-06-26 14:31 | Emergency (ER) | payer OTHER ==
--- OUTSIDE RECORDS SUMMARY | 2020-06-26 14:37 | XMS REPORT | Continuity of Care Document ---
:1950 Author Organization [facility] t Address [address] [place] [address] Care Team Providers Name Role Phone Anne Marie WARD Primary Care Physician Ronaldo Garcia MD Attending Clinician Bo Webb MD Attending Clinician Azeem WARD Attending Clinician Sho CRENSHAW Attending Clinician Zen Enriquez RN Attending Clinician Unavailable Xiang WARD Attending Clinician Alvino RN Attending Clinician Unavailable Bailee WARD, [facility] Attending Clinician Jeannie WARD Attending Clinician Provider, Urgent Care Attending Clinician Unavailable RONALDO GARCIA Admitting Clinician Unavailable AZEEM Admitting Clinician Unavailable Payers Payer Name Policy Type Policy Effective Date Expiration Date Sour ce Number MEDICAREMEDICARE PART [id number] 2017 Mateo martel A AND 00:00:00 Anabaptism [id number] 2018- ANAI [employer] 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 [id number] 2018 [place] MEDICARE 00:00:00 Anabaptism [id number] 2017-PresentComme rcial Problems Condition Condition Condition Status [...] 00 Pain in Pain in Disease Active [place] left knee left knee 04-14 Meth asif 00:00: st 00 Scrotal Scrotal Disease Active [place] edema edema 04-14 Methodi 00:00: st 00 Strain of Strain of Disease Active Nina ston left left 04-14 Methodi patellar patellar 00:00: st tendon tendon 00 Shortness Shortness Disease Active Nina ston of breath of breath 04-01 Meth asif 00:00: st 00 Hepatic Hepatic Disease Active [place] cirrhosis cirrhosis 2 Meth asif 00:00: st 00 Sciatica, Sciatica, Diagnosis Active C [facility] [...] subsequent Ou tpati encounter encounter ent Clinics Electrolyt Electrolyt Disease Resolve 2020-04-14 2020-04-14 [place] e and e and d 04-01 00:00:00 [...] Active Info Not [facility] Reaction Available [facility] Arjun lazaro [facility] Social History Social Habit Start Date Stop Date Quantity Comments Source [facility] Std Drinks [facility] Alcohol Binge Tobacco use and [...] ORAL) COQ10, Yes 1{capsu QD Take 1 [facility] n UBIQUINOL, - le} capsule [...] for 30 days. lactulose 2020-2020- No 20g [id number] Take 20 g Mas 10 gram/15 04-14 [id number] by mouth 3 Methodi mL (15 mL) [...] times a day. midodrine 2020-2020- No 5mg [id number] Take 1 Mas (PROAMATINE 04-14 [id number] tablet (5 Methodi ) 5 MG 00:00: [...] No Renato [address] [facility] 2-06 -07 [facility] Furosemide Furosemide Yes Renato not [facility] defined [facility] spironolact spironolact Yes Renato not [facility] one one [facility] defined [facility] Immunizations Ordered Immunization Filled Immunization Date Status Commen ts Source Name Name FLUZONE HIGH-DOSE PF 2020-04-14 Completed [place] 00:[place]:00 [facility]abaptism Vital Signs Vital Name Observation Time Observation Value Comments Source Systolic blood 2020-05-16 11:32:11 125 mm[Hg] [place] [facility] pressure Diastolic blood 2020-05-16 11:32:11 58 mm[Hg] [place] Anabaptism pressure Heart rate 2020-05-16 11:32:11 76 /min Chace Britton Body temperature 2020-05-16 11:32:11 36.39 Radha [facility] ton Anabaptism Respiratory rate 2020-05-16 11:32:11 19 /min [facility] ton Anabaptism Oxygen saturation in 2020-05-16 11:32:11 96 /min Chace Britton Arterial blood by Pulse oximetry Body weight 2020-05-16 04:10:21 100.88 kg Chace Britton BMI 2020-05-16 04:10:21 31.91 kg/m2 [place] An[facility]aptism Body height 2020-05-08 15:11:30 177.8 cm Mas Anabaptism Procedures Procedure Date / Time Performing Clinician Source Performed SPIROMETRY, DIFFUSION, LUNG 2020-05-16 14:33:19 Dahlia Otoole VOLUMES, MIPS/MEPS HC COMPLETE BLD COUNT 2020-05-16 04:30:00 Donald Burns on Anabaptism W/AUTO DIFF BASIC METABOLIC PANEL 2020-05-16 04:30:00 Donald Burns on Anabaptism HEPATIC FUNCTION PANEL 2020-05-16 04:30:00 Donald Burns PHOSPHORUS LEVEL 2020-05-16 04:30:00 Donald Burns Me thodist MAGNESIUM LEVEL 2020-05-16 04:30:00 Donald Burns Met hodist PROTHROMBIN TIME WITH INR 2020-05-16 04:30:00 Donald Burns ESTIMATED GFR 2020-05-16 04:30:00 Donald Burns Met hodist IR VENOUS EMBOLIZATION 2020-05-15 16:34:00 VarunuriaIlene Anabaptism XR CHEST 2 VW 2020-05-15 13:00:00 Maurisio Otoole Anabaptism HC COMPLETE BLD COUNT 2020-05-15 05:00:00 Donald Burns on Anabaptism W/AUTO DIFF COMPREHENSIVE METABOLIC 2020-05-15 05:00:00 Donald Burns Anabaptism PANEL PHOSPHORUS LEVEL 2020-05-15 05:00:00 Donald Burns Me thodist MAGNESIUM LEVEL 2020-05-15 05:00:00 Donald Burns Met hodrosanna PROTHROMBIN TIME WITH INR 2020-05-15 05:00:00 Donald Burns MISCELLANEOUS REFERRAL TEST 2020-05-15 05:00:00 Segundo Canales ESTIMATED GFR 2020-05-15 05:00:00 Donald Burns Met hodist HC COMPLETE BLD COUNT 2020-05-14 05:51:00 Donald Burns on Anabaptism W/AUTO DIFF COMPREHENSIVE METABOLIC 2020-05-14 05:51:00 Donald Burns Anabaptism PANEL PHOSPHORUS LEVEL 2020-05-14 05:51:00 Donald Burns Me thodist MAGNESIUM LEVEL 2020-05-14 05:51:00 Donald Burns Met hodrosanna PROTHROMBIN TIME WITH INR 2020-05-14 05:51:00 Donald Burns ESTIMATED GFR 2020-05-14 05:51:00 Dnoald Burns Met hodrosanna PROTEIN, URINE, 24 HOUR 2020-05-14 00:30:[address] ABDOMEN WWO CONTRAST 2020-05-13 12:24:08 Ilene Berkowitz PELVIS W CONTRAST HC COMPLETE BLD COUNT 2020-05-13 05:25:00 Donald Burns on Anabaptism W/AUTO DIFF COMPREHENSIVE METABOLIC 2020-05-13 05:25:00 Donald [...] LOW RESOLUTION FULL TYPING 2020-05-12 16:11:00 Segundo Caanles BY SSO SINGLE ANTIGEN BEADS 2020-05-12 16:11:00 Segundo Canales C1Q CLASS 1 & 2 ANTIBODY 2020-05-12 16:11:00 Segnudo Canales US CAROTID DUPLEX BILATERAL 2020-05-12 15:10:30 [...] Segundo Canales HEPATITIS B SURFACE 2020-05-12 14:13:00 Segundo Canales n Anabaptism ANTIBODY HEPATITIS BE AG 2020-05-12 14:13:00 Segundo Canales Me thodist HEPATITIS BE AB 2020-05-12 14:13:00 Parker, Segundo Mas Hi thodist HEPATITIS C ANTIBODY 2020-05-12 14:13:00 Segundo Canales Anabaptism TYPE AND SCREEN 2020-05-12 14:09:00 Segundo Canales thodist PARTIAL THROMBOPLASTIN TIME 2020-05-12 14:08:00 Segundo Canales (PTT) FIBRINOGEN 2020-05-12 14:08:00 Segundo Canales Hi thodist HEMOGLOBIN A1C 2020-05-12 14:07:00 Segundo Canales Hi thodist DRUG VAZQUEZ 9, SER/DARRIUS, SCRN 2020-05-12 [...] Canales T3, FREE 2020-05-12 10:17:00 Segundo Canales Hi thodist CARCINOEMBRYONIC ANTIGEN 2020-05-12 10:17:00 Segundo Canales [...] Canales LIPID PANEL 2020-05-12 10:16:00 Segundo Canales Hi jez ESTIMATED GFR 2020-05-12 10:16:00 Segundo Canales Hi jez HC COMPLETE BLD COUNT 2020-05-12 05:00:00 Krishna Webb W/AUTO DIFF Bo PROTHROMBIN TIME WITH INR 2020-05-12 05:00:00 Krishna Webb BASIC METABOLIC PANEL 2020-05-12 04:00:00 Krishna Webb MAGNESIUM LEVEL 2020-05-12 04:00:00 Krishna Webb HEPATIC FUNCTION PANEL 2020-05-12 04:00:00 DinKrishna [place] on Anabaptism Bo PHOSPHORUS LEVEL 2020-05-12 04:00:00 Dindina, Krishna Mas Met hodrosanna Choprara ESTIMATED GFR 2020-05-12 04:00:00 Dinjazmynr, Krishna Mas Meth odist Bo BASIC METABOLIC PANEL 2020-05-11 05:00:00 DinjazmynrKrishna Anabaptism Bo HC COMPLETE BLD COUNT 2020-05-11 05:00:00 Dinakar, Krishna mccray Anabaptism W/AUTO DIFF Bo MAGNESIUM LEVEL 2020-05-11 05:00:00 Dinakar, Krishna Umaña odist Bo HEPATIC FUNCTION PANEL 2020-05-11 05:00:00 DinakarKrishna on Anabaptism Bo PHOSPHORUS LEVEL 2020-05-11 05:00:00 Dindina, Krishna Srivastava hodrosanna Choprara PROTHROMBIN TIME WITH INR 2020-05-11 05:00:00 DinKrishna arroyo Anabaptism Bo ESTIMATED GFR 2020-05-11 05:00:00 Dinakar, Krishna Umaañ odist Bo BASIC METABOLIC PANEL 2020-05-10 05:05:00 DinKrishna [place]o Anabaptism Bo HC COMPLETE BLD COUNT 2020-05-10 05:05:00 Dindina, Krishna mccray Anabaptism W/AUTO DIFF Bo MAGNESIUM LEVEL 2020-05-10 05:05:00 Dindina, Krishna moy Bo HEPATIC FUNCTION PANEL 2020-05-10 05:05:00 DinjazmynrKrishna on Anabaptism Bo PHOSPHORUS LEVEL 2020-05-10 05:05:00 Dindina, Krishna Sirvastava hodrosanna Choprara PROTHROMBIN TIME WITH INR 2020-05-10 05:05:00 DinKrishna ar[place]o Anabaptism Bo ESTIMATED GFR 2020-05-10 05:05:00 Dinjazmynr, Krishna Mas Meth odist Bo PROTHROMBIN TIME WITH INR 2020-05-09 04:40:00 Mateo Garcia Anabaptism Mynor COMPREHENSIVE METABOLIC 2020-05-09 04:40:00 Kody Garcia Anabaptism PANEL [facility] HC COMPLETE BLD COUNT 2020-05-09 04:40:00 Christa Garcia Anabaptism W/AUTO DIFF Mynor ESTIMATED GFR 2020-05-09 04:40:00 Chace Garcia URINE CULTURE 2020-05-08 18:47:00 Segundo Canales Hi thodist URINALYSIS SCREEN AND 2020-05-08 18:47:00 Segundo Canales Anabaptism MICROSCOPY, WITH REFLEX TO CULTURE US ABDOMINAL DOPPLER 2020-05-08 18:15:00 Chace Garcia US HEPATIC 2020-05-08 18:15:00 Chace Garcia COVID-19 QUALITATIVE PCR 2020-05-08 17:01:00 Nina Garcia HC COMPLETE BLD COUNT 2020-05-08 17:01:00 Christa Garcia Anabaptism W/AUTO DIFF Mynor PROTHROMBIN TIME WITH INR 2020-05-08 17:01:00 Mateo Garcia COMPREHENSIVE METABOLIC 2020-05-08 17:01:00 Kody Garcia Anabaptism PANEL Mynor MAGNESIUM LEVEL 2020-05-08 17:01:00 Chace Garcia PHOSPHORUS LEVEL 2020-05-08 17:01:00 Chace Garcia Met hodrosanna Lowe ESTIMATED GFR 2020-05-08 17:01:00 Chace Garcia TYPE AND SCREEN 2020-05-08 17:01:00 Segundo Canales Hi thodist TOTAL IRON BINDING CAPACITY 2020-05-08 17:01:00 Segundo Canales ALPHA FETOPROTEIN 2020-05-08 17:01:00 Segundo Canales THYROID STIMULATING HORMONE 2020-05-08 17:01:00 Segundo Canales FERRITIN LEVEL 2020-05-08 17:01:00 Segundo Canales Hi thodist BLOOD CULTURE, AEROBIC & 2020-05-08 16:50:00 Segundo Canales ANAEROBIC BLOOD CULTURE, AEROBIC & 2020-05-08 16:20:00 GalatiSegundo ANAEROBIC BASIC METABOLIC PANEL 2020-04-14 04:30:00 Vu, Ronna Britton CBC WITH PLATELET AND 2020-04-14 04:30:00 Vu, Ronna Britton DIFFERENTIAL HEPATIC FUNCTION PANEL 2020-04-14 04:30:00 Vu, Ronna fernández Anabaptism MAGNESIUM LEVEL 2020-04-14 04:30:00 Vu, Ronna Mas Meth odist PHOSPHORUS LEVEL 2020-04-14 04:30:00 Vu, Ronna Mas Met vera PROTHROMBIN TIME WITH INR 2020-04-14 04:30:00 Vu, Ronna Britton ESTIMATED GFR 2020-04-14 04:30:00 DinakarKrishna MANUAL DIFFERENTIAL 2020-04-14 04:30:00 DinakarKrishna XR PANOREX 2020-04-13 09:17:49 FauriaIlene Hi thodist BASIC METABOLIC PANEL 2020-04-13 05:20:00 DinakarKrishna HC COMPLETE BLD COUNT 2020-04-13 05:20:00 DinakarKrishna W/AUTO DIFF Bo MAGNESIUM LEVEL 2020-04-13 05:20:00 DinakaKrishna [place] HEPATIC FUNCTION PANEL 2020-04-13 05:20:00 DinakarKrishna Anabaptism Bo PHOSPHORUS LEVEL 2020-04-13 05:20:00 DinakarKrishna Met vera Soriano PROTHROMBIN TIME WITH INR 2020-04-13 05:20:00 DinKrishna arroyo ESTIMATED GFR 2020-04-13 05:20:00 DinakarKrishna odist Bo BASIC METABOLIC PANEL 2020-04-12 05:40:00 Dinakar, Krishna Choprara HC COMPLETE BLD COUNT 2020-04-12 05:40:00 Dinakar, Krishna [place] [facility]ism W/AUTO DIFF Bo MAGNESIUM LEVEL 2020-04-12 05:40:00 Dinakar, Krishna Umaña odist Bo HEPATIC FUNCTION PANEL 2020-04-12 05:40:00 Dinakar, Krishna [place] on Anabaptism Bo PHOSPHORUS LEVEL 2020-04-12 05:40:00 Dinakar, Krishna Mas Met vera Choprara PROTHROMBIN TIME WITH INR 2020-04-12 05:40:00 Dinakar, Krishna martel Anabaptism Bo ESTIMATED GFR 2020-04-12 05:40:00 Dinakar, Krishna Umaña odist Bo HC COMPLETE BLD COUNT 2020-04-11 04:30:00 Dinakar, Krishna mccray Anabaptism W/AUTO DIFF Bo PROTHROMBIN TIME WITH INR 2020-04-11 04:30:00 Dinakar, Krishna martel Anabaptism Bo BASIC METABOLIC PANEL 2020-04-11 04:00:00 Dinakar, Krishna mccray Anabaptism Bo MAGNESIUM LEVEL 2020-04-11 04:00:00 Dinakar, Krishna Umaña odist Bo HEPATIC FUNCTION PANEL 2020-04-11 04:00:00 Dinakar, Krishna [place] Anabaptism Bo PHOSPHORUS LEVEL 2020-04-11 04:00:00 Dinakar, Krishna Mas Met vera Soriano ESTIMATED GFR 2020-04-11 04:00:00 Dinakar, Krishna Choprara XR ABDOMEN 1 VW PORTABLE 2020-04-10 14:20:49 Ilene Berkowitzist US ABDOMINAL LIMITED 2020-04-10 12:30:00 Ilene Berkowitz on Anabaptism HC COMPLETE BLD COUNT 2020-04-10 05:20:00 Dinakar, Krishna mccray Anabaptism W/AUTO DIFF Bo PROTHROMBIN TIME WITH INR 2020-04-10 05:20:00 Dinakamone, Krishna martel Anabaptism Bo BASIC METABOLIC PANEL 2020-04-10 04:00:00 Dinakar, Krishna mccray Anabaptism Bo MAGNESIUM LEVEL 2020-04-10 04:00:00 Dinakar, Krishna Umaña odist Bo HEPATIC FUNCTION PANEL 2020-04-10 04:00:00 Dinakar, Krishna [place] Anabaptism Bo PHOSPHORUS LEVEL 2020-04-10 04:00:00 Dinakar, Krishna Soriano ESTIMATED GFR 2020-04-10 04:00:00 Dinakar, Krishna Mas Meth odist Bo BASIC METABOLIC PANEL 2020-04-09 06:03:00 Dinakar, Krishna mccray Anabaptism Bo HC COMPLETE BLD COUNT 2020-04-09 06:03:00 Dinakar, Krishna mccray Anabaptism W/AUTO DIFF Bo MAGNESIUM LEVEL 2020-04-09 06:03:00 Dinakar, Krishna Umaña odist Bo HEPATIC FUNCTION PANEL 2020-04-09 06:03:00 Dinakar, Krishna [place] Anabaptism Bo PROTHROMBIN TIME WITH INR 2020-04-09 06:03:00 DinakarKrishna Anabaptism Bo PHOSPHORUS LEVEL 2020-04-09 06:03:00 Dinakar, Krishna Soriano ESTIMATED GFR 2020-04-09 06:03:00 Dinakar, Krishna Choprara CBC WITH PLATELET AND 2020-04-08 05:20:00 Dinakar, Krishna mccray Anabaptism DIFFERENTIAL Bo PROTHROMBIN TIME WITH INR 2020-04-08 05:20:00 Dinakar, Krishna martel Anabaptism Bo MANUAL DIFFERENTIAL 2020-04-08 05:20:00 DinakarKrishnaist Bo BASIC METABOLIC PANEL 2020-04-08 04:00:00 Dinakar, Krishna mccray Anabaptism Bo MAGNESIUM LEVEL 2020-04-08 04:00:00 Dinakar, Krishna Umaña odist Bo HEPATIC FUNCTION PANEL 2020-04-08 04:00:00 Dinakar, Krishna [place] Anabaptism Bo PHOSPHORUS LEVEL 2020-04-08 04:00:00 Dinakar, Krishna Choprara ESTIMATED GFR 2020-04-08 04:00:00 Dinakar, Krishna Mas Meth odist Bo HC COMPLETE BLD COUNT 2020-04-07 01:35:00 Donald Burns on Anabaptism W/AUTO DIFF BASIC METABOLIC PANEL 2020-04-07 01:35:00 Donald Burns on Anabaptism HEPATIC FUNCTION PANEL 2020-04-07 01:35:00 Donald Burns Anabaptism MAGNESIUM LEVEL 2020-04-07 01:35:00 Girma Burnstor Mas Met hodist PROTHROMBIN TIME WITH INR 2020-04-07 01:35:00 Donald Burns Anabaptism ESTIMATED GFR 2020-04-07 01:35:00 Donald Burns Met hodist HC COMPLETE BLD COUNT 2020-04-06 04:00:00 Donald Burns on Anabaptism W/AUTO DIFF BASIC METABOLIC PANEL 2020-04-06 04:00:00 Donald Burns on Anabaptism HEPATIC FUNCTION PANEL 2020-04-06 04:00:00 Donald Burns Anabaptism MAGNESIUM LEVEL 2020-04-06 04:00:00 Donald Burns Met hodist PROTHROMBIN TIME WITH INR 2020-04-06 04:00:00 Donald Burns Anabaptism ESTIMATED GFR 2020-04-06 04:00:00 Donald Burns Met hodist HC COMPLETE BLD COUNT 2020-04-05 05:00:00 Donald Burns on Anabaptism W/AUTO DIFF BASIC METABOLIC PANEL 2020-04-05 05:00:00 Donald Burns on Anabaptism HEPATIC FUNCTION PANEL 2020-04-05 05:00:00 Donald Burns Anabaptism MAGNESIUM LEVEL 2020-04-05 05:00:00 Donald Burns Met hodist PROTHROMBIN TIME WITH INR 2020-04-05 05:00:00 Donald Burns Anabaptism ESTIMATED GFR 2020-04-05 05:00:00 Donald Burns Met hodist HC COMPLETE BLD COUNT 2020-04-04 04:05:00 Donald Burns on Anabaptism W/AUTO DIFF BASIC METABOLIC PANEL 2020-04-04 04:05:00 Donald Burns on Anabaptism HEPATIC FUNCTION PANEL 2020-04-04 04:05:00 BurnsDonald brown Anabaptism MAGNESIUM LEVEL 2020-04-04 04:05:00 Girma Burnstor Mas Met hodist PROTHROMBIN TIME WITH INR 2020-04-04 04:05:00 Donald Burns Anabaptism ESTIMATED GFR 2020-04-04 04:05:00 Girma Burnstor Mas Met hodist HC COMPLETE BLD COUNT 2020-04-03 05:40:00 Donald Burns on Anabaptism W/AUTO DIFF BASIC METABOLIC PANEL 2020-04-03 05:40:00 BurnsDonald brown on Anabaptism HEPATIC FUNCTION PANEL 2020-04-03 05:40:00 Donald Burns Anabaptism MAGNESIUM LEVEL 2020-04-03 05:40:00 Girma Burnstor Mas Met hodist PHOSPHORUS LEVEL 2020-04-03 05:40:00 Donald Burns Me thodist PROTHROMBIN TIME WITH INR 2020-04-03 05:40:00 Donald Burns Anabaptism ESTIMATED GFR 2020-04-03 05:40:00 Girma Burnstor Mas [...] [email or web address] US ABDOMINAL PARACENTESIS 2020-04-02 10:35:00 LiNuria Anabaptism IMAGING CBC WITH PLATELET AND 2020-04-02 04:40:00 Donald Burns on Anabaptism DIFFERENTIAL BASIC METABOLIC PANEL 2020-04-02 04:40:00 Donald Burns on Anabaptism HEPATIC FUNCTION PANEL 2020-04-02 04:40:00 Donald Burns Anabaptism MAGNESIUM LEVEL 2020-04-02 04:40:00 Donald Burns Met hodist PHOSPHORUS LEVEL 2020-04-02 04:40:00 Donald Burns Me thodist PROTHROMBIN TIME WITH INR 2020-04-02 04:40:00 Donald Burns Anabaptism B NATRIURETIC PEPTIDE 2020-04-02 04:40:00 Donald Burns on Anabaptism ESTIMATED GFR 2020-04-02 04:40:00 Donald Burns Met hodist MANUAL DIFFERENTIAL 2020-04-02 04:40:00 Donald Burns Anabaptism FIBRINOGEN 2020-04-01 15:00:00 Cecy Martinez Met hodist [place] HC COMPLETE BLD COUNT 2020-04-01 05:00:00 Donald Burns on Anabaptism W/AUTO DIFF BASIC METABOLIC PANEL 2020-04-01 05:00:00 Donald Burns on Anabaptism HEPATIC FUNCTION PANEL 2020-04-01 05:00:00 Donald Burns Anabaptism MAGNESIUM LEVEL 2020-04-01 05:00:00 Donald Burns Met hodist PHOSPHORUS LEVEL 2020-04-01 05:00:00 Donald Burns Me thodist PROTHROMBIN TIME WITH INR 2020-04-01 05:00:00 Donald Burns Anabaptism HEMOGLOBIN A1C 2020-04-01 05:00:00 Donald Burns Met hodist THYROID STIMULATING HORMONE 2020-04-01 05:00:00 Donald Burns Anabaptism T4 2020-04-01 05:00:00 Donald Burns Met hodist B NATRIURETIC PEPTIDE 2020-04-01 05:00:00 Donald Burns on Anabaptism ALPHA FETOPROTEIN 2020-04-01 05:00:00 Donald Burns M [...] TIME WITH INR 2020-03-31 22:26:00 Dawn Figueredo Anabaptismrosanna Dc PARTIAL THROMBOPLASTIN TIME 2020-03-31 22:26:00 Dawn Figueredo (PTT) Vanda LIPASE LEVEL 2020-03-31 22:26:00 Dawn Figueredo Meth odist Vanda TROPONIN 2020-03-31 22:26:00 Ronna Morocho-Karen Karen Chace Britton HC COMPLETE BLD COUNT 2020-03-31 21:12:00 Bailee Ronna-Karen Karen Feleica Britton W/AUTO DIFF COMPREHENSIVE METABOLIC 2020-03-31 21:12:00 Saad Morochooc-Karen Karen Chace Britton PANEL TROPONIN 2020-03-31 21:12:00 Saad Morochooc-Karen Karen Chace Britton B NATRIURETIC PEPTIDE 2020-03-31 21:12:00 Saad Morochooc-Karen Karen Felecia Britton ESTIMATED GFR 2020-03-31 21:12:00 Saad Morochooc-Karen Karen Mas Anabaptism US DUPLEX VENOUS LOWER 2020-03-31 20:50:00 Dawn Figueredo on Anabaptism EXTREMITY BILATERAL Vanda XR CHEST 1 VW PORTABLE 2020-03-31 20:04:53 Dawn Figueredo on Anabaptism Vanda ECG 12-LEAD 2020-03-31 18:22:47 Ronna Morocho-Karen [facility] Anabaptism Plan of Care Planned Activity Planned Date Details Comments Source Future Scheduled 2020-09-21 INFLUENZA VACCINE Kodyto n Anabaptism Test 00:00:00 [code = INFLUENZA VACCINE] Future Scheduled 2001 COLONOSCOPY SCREENING Ho maribel Anabaptism Test 00:00:00 [code = COLONOSCOPY SCREENING] Future Scheduled 2001 SHINGLES VACCINES (#1) H eve Anabaptism Test 00:00:00 [code = SHINGLES VACCINES (#1)] Future Scheduled 1967 COVID-19 VACCINE (1) Ninafernando torresmahendra Anabaptism Test 00:00:00 [code = COVID-19 VACCINE (1)] Future Scheduled 1957 65+ PNEUMOCOCCAL [place] [facility] Test 00:00:00 VACCINE (1 of 2 - PPSV23) [code = 65+ PNEUMOCOCCAL VACCINE (1 of 2 - PPSV23)] Encounters Start End Encounter Admission Attending Care Care Encounter Source Date/Time Date/Time Type Type Clinicians Facility Department ID 2020-05-08 2020-05-16 Inpatient AZEEM [facility] [id number] [place] 00:00:00 00:00:00 DONALD [address] 2020-03-31 2020-04-14 [id number] [place] 00:00:00 00:00:00 DONALD [address] 2020-01-04 2020-01-04 Urgent Provider, [facility] [id number] 11:30:05 11:50:05 [facility] [id number] Care [place] [id number] Professio [phone] nal [address] 2019-12-25 2019-12-25 Ur[place] [id number] 17:09:55 18:06:32 [facility] [id number] [facility] [id number] [facility] [phone] nal [address] 2018-05-01 2018-05-01 Outpatient Robin Castillo [id number] 15:00:00 15:00:00 [facility] ent Clinics Results Test Description Test Time Test Comments Results Result Comments Source C1Q class 1 & 2 antibody 2020-05-29 16:15:13 Test Item Value Reference Range Interpretation Comme nts Interpretation (test code = 8379996) Unable to analyze due to high background Case number (test code = [id number]) [id number] C1Q class 1 & 2 antibody (test code = See link below for PDF Lab Re port [id number]) [facility] resolution full typing by [id number] 15:49:43 Test Item Value Reference Range Interpretation Comments Interpretation (test Note: HLA typing was code = 3323037) performed by PCR-SSO DNA based procedures.Note: The serological phenotype is an interpretation based on molecular typing data. Case number (test code [id number] = [id number]) Low resolution full See link below for PDF typing by SSO (test Lab Report code = 1359) [place] [facility] Venous [id number] 15:29:30Hm Interface, Radiology Results - 05/17/2020 3:32 PM CDT [facility] Anesthesia TypeModerate sedation was administered by the procedure nurse and monitored by the procedure physician for a ghlejvouk-nx-dkhc sedation time of 118 minutes. Lidocaine 1% [...] fluoroscopy. Using a combination of a 5 Kyrgyz C2 catheter and a 0.035 inch Glidewire, [...] access was then upsized to a 10 Kyrgyz vascular sheath. Over a wire, the vascular [...] removed over a wire. Next, a 5 Kyrgyz glide catheter was placed proximally within thevarix while a 2.8 Kyrgyz renegade high flow microcatheter was utilized access the dilated perigastric /gastric veins. Contrast injection confirmed access to the abnormal veins as seen on series 11.Multiple 0.035 inch Kerline detachable coils were placed in the proximal [...] stasis of dilated perigastric varices as described above.[facility]-[id number] Anabaptism Spirometry, diffusion, lung volumes, MIPS/[id number] 14:33:19 Test Item Value Reference Range Interpretation [...] code = 31.51 See_Comment [Autom ated message] 5439) The system ID.me generated this result transmitted ref erence range: 29.11 - 136.03 cmH2O. The refe rence range was not u sed to interpret this result as normal/abnor mal. MEP Pre (test code = 70.06 See_Comment [Autom ated message] 5496) The system ID.me generated this result transmitted ref erence range: 83.46 - 180.80 cmH2O. The refe rence range was not u sed to interpret this result as normal/abnor mal. DLCO Pre (test code 11.69 See_Comment [Automa almita message] = 5413) The system ID.me generated this result transmitted ref erence range: 18.41 - 34.34 ml/(min*mmHg). The reference range was not used to int erpret this result as normal/abnormal . DL/VA Pre (test code 2.72 See_Comment [Autom ated message] = 5437) The system ID.me generated this result transmitted ref erence range: 2.77 - 5 .17 ml/(min*mmHg*L) . The reference range was not used to int erpret this result as normal/abnormal . VA SB Pre (test code 4.3 L 5.46-8.19 = 5444) DLCOc Pre (test code 13.77 See_Comment [Autom ated message] = 5430) The system ID.me generated this result transmitted ref erence range: 18.41 - 34.34 ml/(min*mmHg). The reference range was not used to int erpret this result as normal/abnormal . [facility] SB Pre (test 3.2 See_Comment [Automate d message] code = 5535) The system ID.me generated this result transmitted ref erence range: 2.77 - 5 .17 ml/(min*mmHg*L) . The reference range was not used to int erpret this result as normal/abnormal . Hb Pre (test code = 10.2 g(Hb)/dL 5540) R0.5IN Pre (test 0.51 See_Comment [Automated message] code = 5514) The system ID[employer]me generated this result transmitted ref erence range: [...] % Predicted (test code = 5587) [facility] [id number] 19:23:28 Test Item Value Reference Range Interpretation Comments SAB serum ID (test code [id number] = 5866) SAB serum collection D&T 05/12/2020 04:11 PM (test code = 5867) SAB class I antibody Negative assignment (test code = 5870) SAB cPRA class I (test 0 code = 5868) SAB class II antibody Negative assignment (test code = 5871) SAB cPRA class II (test 0 code = 5869) Case number (test code = [id number]) Single antigen beads See link below for (test code = 4604) PDF [facility] Report [facility] 2 [id number] 13:32:44Hm Interface, Radiology Results - 05/15/2020 1:35 PM CDT Examination: XR CHEST 2 VWClinical History: Liver Transplant EvaluationComparison: 03/31/2020Technique: Frontal and lateral views of the chestImpression:Subtle basilar peripheral reticulations raising possibility of mild interstitial edema or trace fibrosis.No acute airspace disease or pleural effusion.Normal heart size and pulmonary vascularity.1D2RAD_PS04[facility] MethodistECG 12 [id number] 23:19:55 Test Item Value Reference Range Interpretation Comments Ventricular rate 74 (test code = 253) Atrial rate (test 74 code = 255) MN interval (test 198 code = 266) QRSD [...] criteria for Septal infarct are now present- [facility] Abdomen WWO Contrast, Pelvis W [id number] 12:57:35Hm Interface, Radiology Results - 05/13/2020 1:00 [...] surveillance.6.Additional fi ndings as above.1D2RAD_PS08Houayde PhillipsA transplant [id number] 16:13:41 Test Item Value Reference Range Interpretation Comments HLA transplant evaluation See link below for (test code = 23803-8) PDF Lab Report Case number (test code = [id number]) Chace Delarosa carotid [id number] 15:42:00Interface, Radiology Results In - 05/12/2020 3:42 PM CDTFormatting of this note might be different f rom the original. Vascular Ultrasound Laboratory Carotid Artery Duplex Report [id number] [facility], [facility] [address], [place] [address] For quality assurance qa lab analyst purposes, the categorization of thedegree of the stenosis of this exam is based on criteria described in the IAC carotid stenosis grading white paper( www.intersocietal.org/Vascular) and Yaima Lundberg., Wu Bhagat., et al. Carotid artery stenosis: ortiz-scale and Doppler US diagnosis--Society of Radiologists in Ultrasound Consensus Conference. Radiology. 2003 Dec; 229(2):340-6. Pat.Name: SRIKANTH TOMAS Pat.ID: [id number] St.Date: 05/12/2020 Refer.MD: SAMM WEBB MDExam Time: 2:21:00 PM Study Type:Carotid Height: 70in Weight: 224lb BSA: 2.19 m2 Age: 12 1950,70Y Sex: MALE Sonogrphr: Tim Camarillo RVT Pat. Stat.:Inpatient Room: [address] Vol: , CPT - 4: 36071 Echo Event ID:[id number] Order ID: [id number] Reason for Study:Pre-operative forl liver transplant. History [...] 1.08 Signed 05/12/2020 03:42 PMDahliasolt Kaleb MD, [facility] MethodistCT Chest Wo [id number] 14:14:10Addendum by Otto Person MD on 05/13/2020 [...] 05/12/2020 at 2:34 PM. She verbalized understanding. [facility], Radiology Results Incoming - 05/12/2020 2:17 [...] was provided to discuss these findings.HMRM-WPHYDPKHousmaribel Matson [id number] 20:32:59 Test Item Value Reference Range Interpretation Comments Urine culture (test SEE COMMENT Bacteriu fernando screen code = [id number]) negative. Chace Delarosa [id number] 19:32:36Hm Interface, Radiology Results Incoming - 05/08/2020 [...] Nodular, cirrhotic liver.2. Cholelithiasis.1D2RAD_PS02 Chace Delarosa Abdominal [id number] 19:30:30Hm Interface, Radiology Results Incoming - 05/08/2020 [...] spleen are patent.*Splenic Artery/Vein at Midline: Not visualized.[place] TemiistXR [id number] 09:25:18Hm Interface, Radiology Results Incoming 04/13/2020 9:28 AM CST EXAMINATION: XR PANOREXCLINICAL HISTORY: missing teeth rule out infectionin setting of hepatic encephalopathyCOMPARISON: NoneIMPRESSION:A single Panorex is provided.There are multiple missing teeth and multiple dental restorations.No worrisome periapical lucency is identified.[facility]-[id number] MethodistXR Abdomen 1 Vw [id number] 14:24:12Hm Interface, Radiology Results Incoming 04/10/2020 2:27 PM CSTFormatting of this note might be di fferent from the original.EXAM: XR ABDOMEN 1 VW PORTABLECLINICAL: Nausea vomiting, rule out ileus or constipationCOMPARISON: None.IMPRESSION: 1.Nonspecific bowel gas pattern without radiographic evidence of obstruction.2.Mild degenerative changes in the spine.[facility]-[id number] TemiistUS Abdominal [id number] 13:01:07Hm Interface, Radiology Results Incoming - 04/10/2020 1:04 PM CST EXAMINATION: US ABDOMINAL LIMITEDINDICATION: Ascites.COMPARISON: 04/02/2020IMPRESSION:Targeted ultrasound of the 4 quadrants of the abdomen was performed which demonstrates an overall small volume of ascites.[facility] HospitalTransthoracic Echocardiogram Complete, (w Contrast, Strain and 3D if needed)2020-04-03 15:24:00Interface, Radiology Results In 04/03/2020 3:25 PM CST Echocardiography Report [id number] [address].Name: SRIKANTH TOMAS [facility].ID: [id number] .Date: 04/02/2020 Refer.MD: NURIA DENNIS MD Exam Time: 9:19:00 PM Study Type:Routine Echo Height: 70in Weight: 320lb BSA: 2.55 m2 Age: 12 1950,70Y Sex: MALE BP: 123/56 HR: 81 bpm Sonogrphr: YOMI Montoya /Mikala Keller MDPat. Stat.:Inpatient Room: [place] [address] Study Status:Final Echo Event ID:[id number] Order ID: [id number] Reason for Study:fluid overload rule out cardiac [...] estimate PA systolic pressure. MEASUREMENTS: 2DParasternal Long Matthews Ao An 2 cm LVPWd 1 cm [...] cm/s Signed 04/03/2020 03:24 PMSherif Chuckie Ron M.D.[place] [facility]iAl[facility]quer[facility] Abdominal Paracentesis [id number] 15:53:03Hm Interface, Radiology Results 04/02/2020 3:56 PM CST PROCEDURE:Ultrasound-guided paracentesisAttending Physician: Dr. CedilloPerforming Clinician:JASSI RiveroWHITINSVILLE HOSPITALGagandeep Assistants:NonePre Procedure Diagnosis:ASCITESPost Procedure Diagnosis:ASCITESIndication:AscitesComplications:No immediate [...] applied.Additional details:Estimated blood loss: Less than 10 [facility]-[id number] MethodistUS Abdomen [id number] 01:13:36Hm Interface, Radiology Results 04/01/2020 1:16 AM [...] volume ascites.Cholelithiasis without sonographic evidence of cholecystitis.1D2RAD_PS08 [place] MethodistCT Abdomen Pelvis Wo [id number] 01:02:13Hm Interface, Radiology Results Incoming - 04/01/2020 [...] hernia containing ascites.1D2RAD_PS01[facility] MethodistUs duplex venous lower [id number] 21:27:00Interface, Radiology Results In - 03/31/2020 9:28 PM CST Vascular Ultrasound Laboratory Lower Extremity Venous Report [address] [place] [address] Pat.Name: SRIKANTH TOMAS Pat.ID: [id number] St.Date: 03/31/2020 Refer.MD: PHYSICIAN, EMERGENCY, Exam Time: 8:17:00PM Study Type:LE Venous Age: 12 1950,70Y Sex: MALE Sonogrphr: BREA Santiago RCS Pat. Stat.:Inpatient Room:[facility] ED E24 Tape Vol: JM, CPT - 4: 78717 Echo Event ID:[id number] Order ID: [id number] Reason for Study:Leg swelling , DVT suspected.Procedures: [...] Manuel MD, RPMichell BrittonXR Chest 1 Vw [id number] 20:15:52Hm Interface, Radiology Results Incoming - 03/31/2020 8:18 PM CSTFormatting of this note might be di fferent from the original.Study:XR CHEST 1 VW PORTABLEHistory: SOBCOMPARISON: None.IMPRESSION:A single view of the chest. There is no focal consolidation, pleural effusion or pneumothorax. Cardiac silhouette is normal. Visualized osseous structures are without acute abnormality.[facility]-[id number] Methodist
--- NOTE | 2020-06-26 15:37 | RAD REPORT ---
EXAM DESCRIPTION: CT - Head Brain Wo Cont - 06/26/2020 3:17 pm CLINICAL HISTORY: Dizziness COMPARISON: None TECHNIQUE: Computed axial tomography of the head was obtained. IV contrast was not requested. All CT scans are performed using dose optimization technique as appropriate and may include automated exposure control or mA/KV adjustment according to patient size. FINDINGS: An intracranial bleed is not seen . The ventricles are normal in caliber. No extra-axial fluid collection is noted. Mild low-density areas within periventricular, deep and subcortical white matter likely represent isc hemic changes secondary to small vessel disease. Fluid within the sinuses/ mastoids is not seen. IMPRESSION: No acute intracranial abnormality is seen. If patient's symptoms persist MRI of the bra in would be recommended.
[2020-06-26 15:50] LABS: Arterial Blood Carboxyhemoglob 2.9 % (0-1.5); Blood Gas Oxyhemoglobin 91.3 % (94-97); Blood O2 Saturation 94.8 % (92-98.5)
--- NOTE | 2020-06-26 16:21 | RAD REPORT ---
EXAM DESCRIPTION: Jason Single View06/26/2020 3:51 pm CLINICAL HISTORY: Cough COMPARISON: February 2020 FINDINGS: The lungs appear clear of acute infiltrate. The heart is normal size IMPRESSION: No acute abnormalities displayed
[2020-06-26 16:32] LABS: Absolute Lymphocytes (CBC) 0.5 K/uL (0.7-4.9); Basophils % 0.3 % (0-1.3); Hematocrit 30.7 % (39.6-49.0); Lymphocytes % 4.6 % (15.3-44.8); MPV 8.4 fL (7.6-11.3)
--- NOTE | 2020-06-26 16:41 | ER ---
Nurse's Notes [facility] Name: Dorian Cruz Age: 70 yrs Sex: Male : 1950 Arrival Date: 06/26/2020 Time: 14:32 Bed 23 Private MD: Jan Kenney Diagnosis: Altered mental status, unspecified;Unspecified cirrhosis of liver;Encephalopathy, unspecified-hepatic;Anemia, unspecified;Gastrointestinal hemorrhage, unspecified Presentation: 06/26 15:42 Chief complaint: Patient sister brought him in via POV and wheelchair. Sister states he kg just left here from being admitted last night at 21:30. Sister states he took 3 torsemides this morning and he was only suppose to take one and he has AMS and lethargic. Coronavirus screen: Client denies travel out of the [place] in the last 14 days. The client reports previous COVID testing was negative. Ebola Screen: Patient negative for fever greater than or equal to 101.5 degrees Fahrenheit, and additional compatible Ebola Virus Disease symptoms Patient denies exposure to infectious person. Patient denies travel to an Ebola-affected area in the 21 days before illness onset. No symptoms or risks identified at this time. Initial Sepsis Screen: Does the patient meet any 2 criteria? Altered Mental Status. Yes Does the patient have a suspected source of infection? No. Patient's initial sepsis screen is negative. Risk Assessment: Do you want to hurt yourself or someone else? Patient reports no desire to harm self or others. Onset of symptoms was June 26, 2020. 15:42 Method Of Arrival: Wheelchair kg 15:42 Acuity: NGOC 3 kg - Family history:: not pertinent. - Hospitalizations: : The patient was recently seen at [facility], and discharged 1 day(s) ago. Screenin:59 Abuse screen: Denies threats or abuse. Nutritional screening: No deficits noted. kg Tuberculosis screening: No symptoms or risk factors identified. Fall Risk None identified. No fall in past 12 months (0 pts). No secondary diagnosis (0 pts). IV access (20 points). Ambulatory Aid- Furniture (30 pts.). Gait- Weak (10 pts.). Mental Status- Overestimates/Forgets Limitations (15 pts.). Total [place] Fall Scale indicates High Risk Score (45 or more points). Assessment: 18:33 Reassessment: Report given to Steve RODRIGUEZ [facility]. kg 18:34 General: Appears in no apparent distress. Behavior is calm, cooperative, drowsy. Pain: kg Denies pain. Neuro: Level of Consciousness is obeys commands, confused, lethargic, Oriented to person, place, time, Assistant Unit Forester are weak bilaterally Moves all extremities. Cardiovascular: No deficits noted. Respiratory: No deficits noted. GI: No deficits noted. : No deficits noted. EENT: No deficits noted. Derm: No deficits noted. Musculoskeletal: Weakness. 19:54 Reassessment: [facility] picked pt up to transfer and and EMS stated he had low kg B/P. When arriving back to pt room, B/P was 86/45. Dr. Bell placed 18G EJ to Right side and 1 bag of NS bolus through bag. . 20:05 Reassessment: Pt responded well to fluid bolus. [facility] taking pt to [facility]. Vital Signs: 15:42 BP 100 / 55; Pulse 82; Resp 18; Temp 99.1(O); Pulse Ox 97% on R/A; Weight 108.86 kg; kg Height 5 ft. 10 in. (177.80 cm); Pain 0/10; 18:30 BP 100 / 55; Pulse 70; Resp 18; Pulse Ox 100% on R/A; kg 19:35 BP 86 / 45; Pulse 70; Resp 18; Pulse Ox 96% ; Pain 0/10; kg 20:04 BP 105 / 58; Pulse 67; Resp 18; Pulse Ox 97% ; Pain 0/10; kg 15:42 Body Mass Index 34.44 (108.86 kg, 177.80 cm) kg ED Course: 14:32 Patient arrived in ED. am2 14:32 Jan Kenney MD is Private Physician. am2 15:02 Fredrick Bell MD is Attending Physician. ranjan 15:42 Dunia Billings is Primary Nurse. kg 15:45 Triage completed. kg 15:50 Inserted saline lock: 20 gauge in left antecubital area, using aseptic technique. kg 16:01 XRAY Chest (1 view) In Process Unspecified. EDMS 16:46 initiated transfer to [facility], denied due to full capacity. mt 16:50 initiated transfer to [facility]. mt 17:[address] Dr to report with [facility] hospitalist. mt 17:34 Admin approval given by Ban Faye at [facility] to the hospitalist, Dr. Delgadillo, co going to room 926. 18:36 Dunia giving nurse to nurse report to JENNIFER Wilson. mt 18:44 called [facility] to request transport, 15 min ETA. mt 19:03 Type And Screen Sent. kg 19:54 Inserted saline lock: 18 gauge in right EJ, using aseptic technique. kg 20:06 Arm band placed on right wrist. kg 20:06 IV is patent, is intact. kg Administered Medications: 19:02 Drug: Rocephin (cefTRIAXone) 2 grams Route: IV; Rate: per protocol; Site: left kg antecubital; 19:02 Drug: Lactulose 30 grams Volume: 45 ml; Route: PO; kg 19:02 Drug: Vitamin K1 (phytonadione) 10 mg Route: Sub-Q; Site: left upper arm; kg 19:03 Drug: NS 0.9% 1000 ml Route: IV; Rate: 125 ml/hr; Site: left antecubital; kg 20:00 Drug: NS 0.9% 1000 ml Route: IV; Rate: 1 bolus; Site: left antecubital; kg 20:04 Follow up: Response: No adverse reaction kg 20:00 Drug: NS 0.9% 1000 ml Route: IV; Rate: 1 bolus; Site: left antecubital; kg 20:03 Follow up: Response: No adverse reaction; Marked relief of symptoms; IV Status: kg Completed infusion; IV Intake: 1000ml Intake: 20:03 IV: 1000ml; Total: 1000ml. kg Outcome: 16:39 ER care complete, transfer ordered by . ranjan 20:07 Patient left the ED. kg Signatures: Dispatcher [employer] Fredrick Degroot MD MD cha Moreno, Nhi Burleson, Dunia Hardin mt kg Corrections: (The following items were deleted from the chart) 17:13 16:46 initiate transfer to [facility], denied due to full capacity [facility]
--- NOTE | 2020-06-26 16:42 | EDPHYS ---
Physician Documentation [facility] Name: Dorian Cruz Age: 70 yrs Sex: Male : 1950 Arrival Date: 06/26/2020 Time: 14:32 Bed 23 Private MD: Jan Kenney ED Physician Fredrick Bell HPI: 06/26 16:29 This 70 yrs old Male presents to ER via Wheelchair with complaints of Altered ranjan Mental Status, drowsiness. 16:29 The patient presents with confusion, decreased mental status, decreased responsiveness. ranjan Onset: The symptoms/episode began/occurred 1 day(s) ago. Possible causes: drug use, sepsis. Associated signs and symptoms: Pertinent positives: combativeness, confusion, dizziness, lightheadedness. Current symptoms: In the emergency department the patient's symptoms have worsened, mildly. Patient's baseline: Neuro: alert and fully oriented, Motor: no deficits, Ambulation: unable to walk, Speech: normal, normal for age. The patient has experienced similar episodes in the past, several times. - Family history:: not pertinent. - Hospitalizations: : The patient was recently seen at [facility], and discharged 1 day(s) ago. ROS: 16:30 Constitutional: Negative for fever, chills, and weight loss, Eyes: Negative for injury, ranjan pain, redness, and discharge, ENT: Negative for injury, pain, and discharge, Neck: Negative for injury, pain, and swelling, Cardiovascular: Negative for chest pain, palpitations, and edema, Respiratory: Negative for shortness of breath, cough, wheezing, and pleuritic chest pain, Abdomen/GI: Negative for abdominal pain, nausea, vomiting, diarrhea, and constipation, Back: Negative for injury and pain, : Negative for injury, bleeding, discharge, and swelling, Psych: Negative for depression, anxiety, suicide ideation, homicidal ideation, and hallucinations, Allergy/Immunology: Negative for hives, rash, and allergies, Endocrine: Negative for neck swelling, polydipsia, polyuria, polyphagia, and marked weight changes. 16:30 MS/extremity: Positive for decreased range of motion, swelling, of the right leg and left leg. 16:30 Skin: Positive for pallor. 16:30 Neuro: Positive for weakness. Exam: 16:30 Constitutional: This is a well developed, well nourished patient who is awake, alert, ranjan and in no acute distress. Head/Face: Normocephalic, atraumatic. ENT: Nares patent. No nasal discharge, no septal abnormalities noted. Tympanic membranes are normal and external auditory canals are clear. Oropharynx with no redness, swelling, or masses, exudates, or evidence of obstruction, uvula midline. Mucous membranes moist. Neck: Trachea midline, no thyromegaly or masses palpated, and no cervical lymphadenopathy. Supple, full range of motion without nuchal rigidity, or vertebral point tenderness. No Meningismus. Chest/axilla: Normal chest wall appearance and motion. Nontender with no deformity. No lesions are appreciated. Cardiovascular: Regular rate and rhythm with a normal S1 and S2. No gallops, murmurs, or rubs. Normal PMI, no JVD. No pulse deficits. Respiratory: Lungs have equal breath sounds bilaterally, clear to auscultation and percussion. No rales, rhonchi or wheezes noted. No increased work of breathing, no retractions or nasal flaring. Back: No spinal tenderness. No costovertebral tenderness. Full range of motion. Skin: Warm, dry with normal turgor. Normal color with no rashes, no lesions, and no evidence of cellulitis. MS/ Extremity: Pulses equal, no cyanosis. Neurovascular intact. Full, normal range of motion. Psych: Awake, alert, with orientation to person, place and time. Behavior, mood, and affect are within normal limits. 16:30 Eyes: Pupils: no acute changes, equal, round, and reactive to light and accomodation, Extraocular movements: intact throughout, Conjunctiva: pale, Corneas: are normal, no acute changes, Sclera: icterus, Nystagmus: is not appreciated. 16:30 Abdomen/GI: Inspection: distension, Bowel sounds: active, Palpation: nontender, Rectal exam: rectal tone normal, Stool: guaiac positive, hemorrhoid(s), are not appreciated, mass, is not appreciated, swelling, is not appreciated, tenderness, is not appreciated, Liver: no appreciated palpable abnormalities, Hernia: not appreciated. Vital Signs: 15:42 BP 100 / 55; Pulse 82; Resp 18; Temp 99.1(O); Pulse Ox 97% on R/A; Weight 108.86 kg; kg Height 5 ft. 10 in. (177.80 cm); Pain 0/10; 18:30 BP 100 / 55; Pulse 70; Resp 18; Pulse Ox 100% on R/A; kg 19:35 BP 86 / 45; Pulse 70; Resp 18; Pulse Ox 96% ; Pain 0/10; kg 20:04 BP 105 / 58; Pulse 67; Resp 18; Pulse Ox 97% ; Pain 0/10; kg 15:42 Body Mass Index 34.44 (108.86 kg, 177.80 cm) kg MDM: 15:02 Patient medically screened. ranjan 16:34 Differential Diagnosis altered mental status, sepsis. Differential Diagnosis: CVA, ranjan electrolyte abnormality, hypoglycemia, intracranial bleed, overdose, sepsis, TIA, UTI, volume depletion. Data reviewed: vital signs, nurses notes, lab test result(s), EKG, radiologic studies, CT scan, plain films. Data interpreted: nuclear monitoring technician: Pulse oximetry: on room air is 97 %. Test interpretation: by ED physician or midlevel provider: ECG, plain radiologic studies. Counseling: I had a detailed discussion with the patient and/or guardian regarding: the historical points, exam findings, and any diagnostic results supporting the discharge/admit diagnosis, lab results, radiology results, the need to transfer to another facility, for higher level of care, [facility] does not immediately have the required specialist. 06/26 15:06 Order name: Basic Metabolic Panel; Complete Time: 17:13 [facility] 06/26 15:06 Order name: CBC with Diff; Complete Time: 17:13 [facility] 06/26 15:06 Order name: LFT's; Complete Time: 17:13 [facility] 06/26 15:06 Order name: Magnesium; Complete Time: 17:13 [facility] 06/26 15:06 Order name: NT PRO-BNP; Complete Time: 17:13 [facility] 06/26 15:06 Order name: PT-INR; Complete Time: 17:13 [facility] 06/26 15:06 Order name: Troponin (emerg Dept Use Only); Complete Time: 17:13 [facility] 06/26 15:06 Order name: ABG [facility] 06/26 15:06 Order name: Acetaminophen; Complete Time: 17:13 [facility] 06/26 15:06 Order name: ETOH Level; Complete Time: 17:13 [facility] 06/26 15:06 Order name: Ptt, Activated; Complete Time: 17:13 [facility] 06/26 15:06 Order name: Salicylate; Complete Time: 17:13 [facility] 06/26 15:06 Order name: Urine Drug Screen [facility] 06/26 15:06 Order name: Urine Culture [facility] 06/26 15:06 Order name: XRAY Chest (1 view); Complete Time: 16:28 [facility] 06/26 15:06 Order name: CT Head Brain wo Cont [facility] 06/26 15:06 Order name: Lactate; Complete Time: 17:13 [facility] 06/26 15:38 Order name: CT; Complete Time: 16:17 [facility] 06/26 15:51 Order name: ABG Arterial Blood Gas; Complete Time: 16:17 [facility] 06/26 16:17 Order name: AMMONIA; Complete Time: 19:43 [facility] 06/26 17:46 Order name: SARS-COV-2 RT PCR; Complete Time: 19:43 [facility] 06/26 19:32 Order name: Urine Dipstick-Ancillary; Complete Time: 19:43 [facility] 06/26 20:07 Order name: Lactate Sepsis 2 HR Follow-up [facility] 06/26 15:06 Order name: Cardiac monitoring [facility] 06/26 15:06 Order name: EKG - Nurse/Tech [facility] 06/26 15:06 Order name: IV Saline Lock [facility] 06/26 15:06 Order name: Labs collected and sent [facility] 06/26 15:06 Order name: O2 Per Protocol [facility] 06/26 15:06 Order name: O2 Sat Monitoring [facility] 06/26 15:06 Order name: Suicide Screening ([place]) [facility] 06/26 15:06 Order name: Urine Dipstick-Ancillary (obtain specimen) [facility] Administered Medications: 19:02 Drug: Rocephin (cefTRIAXone) 2 grams Route: IV; Rate: per protocol; Site: left kg antecubital; 19:02 Drug: Lactulose 30 grams Volume: 45 ml; Route: PO; kg 19:02 Drug: Vitamin K1 (phytonadione) 10 mg Route: Sub-Q; Site: left upper arm; kg 19:03 Drug: NS 0.9% 1000 ml Route: IV; Rate: 125 ml/hr; Site: left antecubital; kg 20:00 Drug: NS 0.9% 1000 ml Route: IV; Rate: 1 bolus; Site: left antecubital; kg 20:04 Follow up: Response: No adverse reaction kg 20:00 Drug: NS 0.9% 1000 ml Route: IV; Rate: 1 bolus; Site: left antecubital; kg 20:03 Follow up: Response: No adverse reaction; Marked relief of symptoms; IV Status: kg Completed infusion; IV Intake: 1000ml Disposition: 06/26/20 16:39 Transfer ordered to [facility]. Diagnosis are Altered mental status, unspecified, Unspecified cirrhosis of liver, Encephalopathy, unspecified - hepatic, Anemia, unspecified, Gastrointestinal hemorrhage, unspecified. - Reason for transfer: Higher level of care. - Accepting physician is to liver center. - Condition is Fair. - Problem is new. - Symptoms have improved. Signatures: Dispatcher [employer] EDDE Fredrick Bell MD MD cha Graham, Kristen kg Corrections: (The following items were deleted from the chart) 16:58 16:30 CORONAVIRUS+MR.LAB.BRZ ordered. [facility] 20:07 16:39 06/26/2020 16:39 Transfer ordered to [facility]. Diagnosis is Altered kg mental status, unspecified; Unspecified cirrhosis of liver; Encephalopathy, unspecified - hepatic; Anemia, unspecified; Gastrointestinal hemorrhage, unspecified. Reason for transfer: Higher level of care. Accepting physician is to liver center. Condition is Fair. Problem is new. Symptoms have improved. ranjan
[2020-06-26 16:55] LABS: ALT/SGPT 45 U/L (12-78); AST/SGOT 54 U/L (15-37); Albumin 2.7 g/dL (3.4-5.0); Alkaline Phosphatase 137 U/L (45-117); BUN Blood Urea Nitrogen 23 mg/dL (7-18); Bicarbonate 29 mmol/L (21-32); Bilirubin Direct 1.2 mg/dL (0-0.2); Bilirubin Total 4.2 mg/dL (0.2-1.0); Glucose Level 130 mg/dL (74-106); Magnesium 2.4 mg/dL (1.8-2.4); NT PRO-BNP 264 pg/mL (<125); Potassium 4.3 mmol/L (3.5-5.1); Protein, Total 5.5 g/dL (6.4-8.2); Sodium Level 136 mmol/L (136-145); Troponin (Emerg Dept Use Only) < 0.02 ng/mL (0.0-0.045)
[2020-06-26 16:58] LABS: Protime INR 1.38
[2020-06-26] MEDS ORDERED: CEFTRIAXONE/SWI 1gm 2 GM/20 ML SYR ONE (19:05)
[2020-06-26] MEDS ORDERED: LACTULOSE 20 GM/30 ML UCUP ONE (19:05)
[2020-06-26] MEDS ORDERED: PANTOPRAZOLE 40 MG INJ ONE (19:05)
[2020-06-26] MEDS ORDERED: NA CHLORIDE 0.9% 1,000 ML ONE ×2 (19:05→20:11)
[2020-06-26] MEDS ORDERED: VITAMIN K (ADULT) 10 MG/ML ONE (19:05)
[2020-06-26 19:33] LABS: Urine Blood Negative (Negative); Urine Glucose Negative (Negative); Urine Protein Negative (Negative); Urine Specific Gravity 1.025 (1.005-1.030)
[2020-06-26 19:47] LABS: Barbiturates NEGATIVE (NEGATIVE); Benzodiazepines NEGATIVE (NEGATIVE); Cocaine NEGATIVE (NEGATIVE); METHAMPHETAM NEGATIVE (NEGATIVE); Methadone NEGATIVE (NEGATIVE); Opiates NEGATIVE (NEGATIVE); Phencyclidine NEGATIVE (NEGATIVE); THC Cannibis NEGATIVE (NEGATIVE)
[2020-06-26 20:17] VITALS: TEMP 99.1
[2020-06-26 20:22] VITALS: BP 105/58; O2SAT 97
== END 2020-06-26 20:07 | disposition short-term general hospital (02) ==
LOC: ER 14:31
DX: K72.90 Hepatic failure, unspecified without coma (principal); K74.60 Unspecified cirrhosis of liver; D64.9 Anemia, unspecified; K92.2 Gastrointestinal hemorrhage, unspecified; Z20.822 Contact with and (suspected) exposure to COVID-19
CPT/HCPCS: 85025; 87086; 80048; 36415; 80320; 82140; 83735; 80329 ×2; 85610; 80076; 80307 ×8; 83605 ×2; 85730; 81003; 84484; 83880; 70450; 71045; 82805; 96372; 96374; 99284; U0003; J3430; C9113; J0696; J7030 ×2; 87088

== ENCOUNTER 2020-09-26 10:44 | Emergency (ER) | payer OTHER ==
--- OUTSIDE RECORDS SUMMARY | 2020-09-26 10:52 | XMS REPORT | Continuity of Care Document ---
:1950 Author Organization [facility] t Address [address] [place] [address] Care Team Providers Name Role Phone Anne Marie WARD Primary Care Physician Alli ESTRADA Attending Clinician Unavailable Wilfredo Carmichael MD Attending Clinician Rishi Baker MD Attending Clinician Ronaldo Burrell MD Attending Clinician Azeem WARD Attending Clinician Hu WARD WShelby Attending Clinician Felton Fang MD Attending Clinician Zen Enriquez RN Attending Clinician Unavailable RONALDO BURRELL MD Attending Clinician Unavailable Parker WARD, SShelby Attending Clinician Sho Webb MD Attending Clinician MD SHO WEBB Attending Clinician Unavailable ANNIE DELGADILLO Attending Clinician Unavailable Annie Delgadillo MD Attending Clinician Dario WARD Attending Clinician Sabiha Dwyer MD Attending Clinician Sho CRENSHAW Attending Clinician Xiang WARD Attending Clinician Alvino RODRIGUEZ Attending Clinician Unavailable Bailee WARD, [facility] Attending Clinician Jeannie WARD Attending Clinician MD AZEEM Attending Clinician Unavailable Provider, Urgent Care Attending Clinician Unavailable RONALDO BURRELL Admitting Clinician Unavailable RONALDO BURRELL MD Admitting Clinician Unavailable TRACEY Admitting Clinician Unavailable MD SHO WEBB Admitting Clinician Unavailable SABIHA DWYER Admitting Clinician Unavailable AZEEM Admitting Clinician Unavailable MD AZEEM Admitting Clinician Unavailable Payers Payer Name Policy Type Policy Effective Date Expiration Date Sour ce Number MEDICAREMEDICARE PART [id number] 2017 [facility] A AND 00:00:00 [facility] [id number] 2017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 [id number] 2018 [facility] MEDICARE 00:00:00 [facility] [id number] 2017-PresentComme rcial MEDICAREMEDICARE A [id number] 2017 [place] Tracy [id number] 2017- 00:00:00 [facility] [id number] [place] SUPPLEMENT/INDIVIDUAL 00:00:00 - M edical [facility] MEDICARE Center [id number] 2017-PresentMedig ap Problems Condition Condition Condition Status Onset Resolution Last Treating Co mments Source Name Details Category Date Date Treatment Clinician Date Anemia Anemia Disease Active Methodi 08-11 00:00: Hospita 00 l Hematemesi Hematemesi Disease Active M ethodi s s 08-11 00:00: Hospita 00 l History of History of Disease Active M ethodi ascites ascites 08-11 00:00: Hospita 00 l Disorder Disorder Disease Active Metho di of liver of liver 08-01 00:00: Hospita 00 l Fluid Fluid Disease Active Methodi overload overload 08-01 00:00: Hospita 00 l Encephalop Encephalop Disease Active M ethodi athy, athy, 06-26 st portal portal 00:00: Hospita systemic systemic 00 l Cirrhosis Cirrhosis Disease Active Met hodi of liver of liver 05-08 st 00:00: Hospita 00 l Generalize Generalize Disease Active M ethodi d edema d edema 04-14 st 00:00: Hospita 00 l Hyperammon Hyperammon Disease Active M ethodi emia emia 04-14 st 00:00: Hospita 00 l Hypoalbumi Hypoalbumi Disease Active M ethodi nemia nemia 04-14 st 00:00: Hospita 00 l Neuralgia Neuralgia Disease Active Met hodi of right of right 04-14 sciatic sciatic 00:00: Hospita nerve nerve 00 l Pain in Pain in Disease Active Methodi left knee left knee 04-14 00:00: Hospita 00 l Scrotal Scrotal Disease Active Methodi edema edema 04-14 00:00: Hospita 00 l Strain of Strain of Disease Active Met hodi left left 04-14 st patellar patellar 00:00: Hospit a tendon tendon 00 l Shortness Shortness Disease Active Met hodi of breath of breath 04-01 00:00: Hospita 00 l Hepatic Hepatic Disease Active Methodi cirrhosis cirrhosis 04-01 st 00:00: Hospita 00 l Pain, Pain, Diagnosis Active [facility] joint, [...] initial initial Outpati encounter encounter ent Clinics Allergies, Adverse Reactions, Alerts Allergy Allergy Status Severity Reaction(s) Onset Inactive Treating Comm ents Source Name Type Date Date Clinician Codeine Drug Active Other (See Patient [facility] Allergy Comments) [facility] when he Center last took medicatio n Codeine Propensi Active Other (See Loopy - Me thodi ty to Comments) 04-[address] adverse 00:00: in other Hospita reaction 00 world l s to drug codeine Adverse Active Info Not [facility] Reaction Available Rossana Donis Eelangelina lazaro Outpati ent Clinics Social History Social Habit Start Date Stop Date Quantity Comments Source History SDOH [facility] Alcohol Std Drinks Hospit al History SDOH [facility] Alcohol Binge Hospital Exposure to Not sure [facility] SARS-CoV-2 (event) Hospit al Tobacco use and 2020-09-19 2020-09-19 Never used [facility] exposure 00:00:00 00:00:00 Hospital Alcohol intake 2020-09-19 2020-09-19 Lifetime [facility] 00:00:00 00:00:00 non-drinker Hospital (finding) History SDOH 2020-04-02 2020-04-02 1 [facility] Alcohol Frequency 00:00:00 00:00:00 Hospita l Sex Ass[birth year] At [birth year] [facility] 00:00:00 00:00:00 Hospital Smoking Status Start Date Stop Date Source Never smoker [facility] Hospit al Medications Ordered Filled Start Stop Current Ordering Indication Dosage Frequency Signature Comments Components Source Medication Medication Date Date Medication? Clinician (SIG) Name Name torsemide Yes 80mg Q.5D Take 4 Method i (DEMADEX) 8-[address] 20 MG 00:00: (80 mg Hospita tablet 00 total) by l mouth 2 (two) times a day. COQ10, Yes 1{capsu QD Take 1 Method i UBIQUINOL, 7-30 le} capsule by st ORAL 15:16: mouth Hospita 25 daily. l SAW Yes 1{capsu QD Take 1 Methodi PALMETTO 7-30 le} capsule by st ORAL 15:16: mouth Hospita 25 daily. l sucralfate Yes 1g Q.5D Take 1 g Met hodi (CARAFATE) 7-[address] 1 gram 15:16: (two) Hospita tablet 25 times a l day. midodrine Yes 10mg Q.[id number] Take 10 mg Methodi (PROAMATINE 7-30 [id number] by mouth 3 st ) 10 MG 15:16: 3D (three) Hospita tablet 25 times a l day. riFAXimin Yes 550mg Q.5D Take 550 Met hodi (XIFAXAN) 7-[address] 550 mg 15:16: mouth 2 Hospita tablet 25 (two) l times a day. cyanocobala Yes 1{tbl} QD Take 1 Me thodi min, 7-[address] vitamin 15:16: mouth Hospita B-12, 25 daily. l (VITAMIN B-12 ORAL) pantoprazol 2020- No 20mg QD Take 20 mg Methodi e 7-12 07-[address] (PROTONIX) 20:58: 00:00 daily. Hosp george 20 MG EC 54 :00 l tablet pantoprazol Yes 40mg Q.5D Take 1 Meth asif e 7-12 tablet (40 st (PROTONIX) 00:00: mg total) Ho spita 40 MG EC 00 by mouth 2 l tablet (two) times a day. ergocalcife 2020- Yes [id number] Q7D Take 1 M ethodi rol 08-22 09-[address] (VITAMIN 00:00: 04:59 (50,000 Hospi ta D2) 50,000 00 :00 Units l unit total) by capsule mouth once a week for 84 days. torsemide 2020- No 60mg Q.5D Take 60 mg M ethodi (DEMADEX) 08-[address] 20 MG 00:00: 00:00 (two) Hospita tablet 00 :00 times a l day. spironolact 2020- No 100mg QD Take 1 Me thodi one 08-12 07-[address] (ALDACTONE) 00:00: 00:00 (100 mg Ho spita 100 MG 00 :00 total) by l tablet mouth daily. magnesium 2020- No 400mg QD Take 400 Me thodi oxide 08-11 06-[address] (MAG-OX) 21:50: 00:00 mouth Hospita 400 mg 28 :00 daily. l (241.3 mg magnesium) tablet torsemide 2020- No 60mg Q.5D Take 3 Metho di (DEMADEX) 6-21 07-[address] 20 MG 00:00: 00:00 (60 mg Hospita tablet 00 :00 total) by l mouth 2 (two) times a day. doxycycline 2020- No 100mg Q.5D Take 1 Me thodi (DORYX) 100 08-[address] MG EC 00:00: 04:59 (100 mg Hospita tablet 00 :00 total) by l mouth 2 (two) times a day for 7 days. riFAXimin 2020- No 550mg Q.5D Take 1 Meth asif (XIFAXAN) 08-[address] 550 mg 00:00: 00:00 (550 mg Hospita tablet 00 :00 total) by l mouth 2 (two) times a day for 30 days. pantoprazol Yes 40mg QD Take [address] [facility] e 5-07 by mouth [facility] - (PROTONIX) 15:53: daily. Medic al 40 MG 19 Center tablet spironolact Yes 25mg QD Take [address] [facility] one 5-07 by mouth [facility] - (ALDACTONE) 15:53: daily Hold Medical 25 MG 19 if bp less Center tablet than 100 . torsemide Yes 20mg QD Take [address] (DEMADEX) 5-07 by mouth [facility] - 20 MG 15:53: daily. Medical tablet 19 Center cyanocobala Yes 1000ug QD Take 1,[address] min, 5-07 mcg by [facility] - vitamin 15:53: mouth Medical B-12, 1000 19 daily. Center MCG tablet lactulose Yes 20g Q.25D Take [address] (CHRONULAC) 5-07 by mouth 4 Trina kes - 20 gram/30 15:53: (four) Medic al mL solution 19 times Center daily. sucralfate Yes 1g Q.5D Take [address] [facility] (CARAFATE) 5-07 by mouth 2 Beverley es - 1 gram 15:53: (two) Medical tablet 19 times Center daily. coenzyme Yes 100mg QD Take [address] Q10 100 mg 5-07 mg by [facility] - capsule 15:53: mouth Medical 19 daily. Center saw 2021-0 Yes 160mg Q.5D Take [address] palmetto 5-07 mg by [facility] - 160 MG 15:53: mouth 2 Medical capsule 19 (two) Center times daily. midodrine Yes 10mg Q.[id number] Take [address] (PROAMATINE 5-07 [id number] by mouth 3 [facility] - ) 10 MG 15:53: 3D (three) Medical tablet 19 times Center daily. spironolact 2020- No 100mg Q.5D Take 1 Me thodi one - 04-[address] (ALDACTONE) 00:00: 04:59 (100 mg Ho spita 100 MG 00 :00 total) by l tablet mouth 2 (two) times a day for 30 days. lactulose 2020- No 20g Q.[id number] Take 20 g Methodi 10 gram/15 04-14- [id number] by mouth 3 st mL (15 mL) 22:38: 00:00 3D (three) Hos kayleigh solution 55 :00 times a l day. 4am, 12pm, 8pm spironolact 2020- No 50mg Q.5D Take 50 mg Methodi one 04-[address] (ALDACTONE) 22:38: 00:00 (two) [facility]osp [facility] 50 MG 55 :00 times a l tablet day. furosemide 2020- No 40mg Q.5D Take 40 mg Methodi (LASIX) 40 04-14- by mouth 2 st mg tablet 22:38: 00:00 (two) Hospit a 55 :00 times a l day. lactulose Yes 20g Q.25D Take 30 mL M ethodi 20 gram/30 - ([address] mL solution 00:00: total) by H ospita 00 mouth 4 l (four) times a day. spironolact 2020- No 100mg Q.5D Take 1 Me thodi one -12 05- tablet st (ALDACTONE) 00:00: 00:00 (100 mg Ho spita 100 MG 00 :00 total) by l tablet mouth 2 (two) times a day. midodrine 2020- No 5mg Q.[id number] Take 1 Methodi (PROAMATINE 04-14 [id number] tablet (5 st ) 5 MG 00:00: 00:00 3D mg total) Hospi ta tablet 00 :00 by mouth 3 l (three) times a day for 30 days. torsemide 2020- No 60mg Q.5D Take 3 Metho di (DEMADEX) 04-[address] 20 MG 00:00: 00:00 (60 mg Hospita tablet 00 :00 total) by l mouth 2 (two) times a day. tamsulosin 2020- No .4mg QD Take 1 Meth asif (FLOMAX) 04-[address] 0.4 mg 00:00: 00:00 (0.4 mg Hospita capsule 00 :00 total) by l mouth daily with dinner. Meloxicam Meloxicam 2019- No Renato [address] [facility] 00 :00 l Outpati ent Clinics spironolact spironolact Yes Renato not [facility] one one Tobar defined [facility] Furosemide Furosemide Yes Renato not [facility] defined [facility] Immunizations Ordered Immunization Filled Immunization Date Status Commen ts Source Name Name FLUZONE HIGH-DOSE PF 2020-04-14 Completed Meth odist 00:00:00 Hospital Vital Signs Vital Name Observation Time Observation Value Comments Source Body height 2020-09-19 15:15:00 177.8 cm [facility] Body weight 2020-09-19 15:15:00 110.496 kg [facility] BMI 2020-09-19 15:15:00 34.95 kg/m2 [facility] Systolic blood 2020-09-01 13:08:47 113 mm[Hg] Method ist Hospital pressure Diastolic blood 2020-09-01 13:08:47 58 mm[Hg] [facility] Hospital pressure Heart rate 2020-09-01 13:08:47 62 /min [facility] Body temperature 2020-09-01 13:08:47 36.39 Radha [facility] Respiratory rate 2020-09-01 13:08:47 20 /min [facility] Oxygen saturation in 2020-09-01 13:08:47 99 /min [facility] Arterial blood by Pulse oximetry Systolic blood 2020-06-27 10:41:00 103 mm[Hg] [facility] Diastolic blood 2020-06-27 10:41:00 52 mm[Hg] [facility] Heart rate 2020-06-27 10:41:00 75 /min [facility] Body temperature 2020-06-27 10:41:00 36.11 [facility] Respiratory rate 2020-06-27 10:41:00 18 /min [facility] Oxygen saturation in 2020-06-27 10:41:00 98 /min [facility] Arterial blood by Medical Ce nter Pulse oximetry Body weight 2020-06-27 06:00:00 106.595 kg [facility] BMI 2020-06-27 06:00:00 33.72 kg/m2 [facility] Body height 2020-06-26 23:19:00 177.8 cm [facility] Procedures Procedure Date / Time Performing Source Performed Clinician HC COMPLETE BLD COUNT W/AUTO DIFF 2020-09-01 Tobi Garcia 09:37:00 [facility] BASIC METABOLIC PANEL 2020-09-01 Tobi Garcia 09:37:00 [facility] HEPATIC FUNCTION PANEL 2020-09-01 Tobi Garcia 09:37:00 [facility] MAGNESIUM LEVEL 2020-09-01 Tobi Garcia 09:37:00 [facility] PHOSPHORUS LEVEL 2020-09-01 Tobi Garcia 09:37:00 [facility] PROTHROMBIN TIME WITH INR 2020-09-01 Temi Garciat 09:37:00 [facility] ESTIMATED GFR 2020-09-01 Tobi Garcia 09:37:00 [facility] SMEAR REVIEW 2020-09-01 Tobi Garcia 09:37:00 [facility] HEMOGLOBIN & HEMATOCRIT 2020-09-01 Delmi Garcia t 03:19:00 [facility] HC COMPLETE BLD COUNT W/AUTO DIFF 2020-08-31 Tobi Garcia 10:29:00 [facility] BASIC METABOLIC PANEL 2020-08-31 Tobi Garcia 10:29:00 [facility] HEPATIC FUNCTION PANEL 2020-08-31 Tobi Garcia 10:29:00 [facility] MAGNESIUM LEVEL 2020-08-31 Tobi Garcia 10:29:00 [facility] PHOSPHORUS LEVEL 2020-08-31 Tobi Garcia 10:29:00 [facility] PROTHROMBIN TIME WITH INR 2020-08-31 Ronaldo Burrell Method ist 10:29:00 [facility] ESTIMATED GFR 2020-08-31 Tobi Garcia 10:29:00 [facility] SMEAR REVIEW 2020-08-31 Tobi Garcia 10:29:00 [facility] TRANSFUSE RED BLOOD CELLS 2020-08-30 Temi Garcia ist 23:54:39 [facility] ESOPHAGOGASTRODUODENOSCOPY (EGD) 2020-08-30 Otto Lui 18:18:00 Hospital TRANSFUSE RED BLOOD CELLS 2020-08-30 Temi Garcia ist 18:09:03 [facility] TTE COMPLETE W AGITATED SALINE W 2020-08-30 Segundo Canalesist CONT W DOP 15:00:00 Hospital HC COMPLETE BLD COUNT W/AUTO DIFF 2020-08-30 Tobi Garcia 10:06:00 [facility] BASIC METABOLIC PANEL 2020-08-30 Tobi Garcia 10:06:00 [facility] HEPATIC FUNCTION PANEL 2020-08-30 Tobi Garcia 10:06:00 [facility] MAGNESIUM LEVEL 2020-08-30 Tobi Garcia 10:06:00 [facility] PHOSPHORUS LEVEL 2020-08-30 Tobi Garcia 10:06:00 [facility] PROTHROMBIN TIME WITH INR 2020-08-30 Ronaldo Burrell Method ist 10:06:00 [facility] ESTIMATED GFR 2020-08-30 Tobi Garcia 10:06:00 [facility] SMEAR REVIEW 2020-08-30 Tobi Garcia 10:06:00 [facility] US ABDOMINAL DOPPLER 2020-08-29 Ilene Berkowitz 22:45:05 Hospital HEMOGLOBIN & HEMATOCRIT 2020-08-29 Ilene Berkowitz Method ist 19:03:00 Hospital POTASSIUM LEVEL 2020-08-29 Aubrey Carmichael Taoist 17:40:00 [facility] HEMOGLOBIN & HEMATOCRIT 2020-08-29 Ilene Berkowitz Method ist 17:40:00 Hospital POTASSIUM LEVEL 2020-08-29 Tobi Garcia 13:15:00 [facility] HC COMPLETE BLD COUNT W/AUTO DIFF 2020-08-29 Tobi Garcia 10:09:00 [facility] BASIC METABOLIC PANEL 2020-08-29 Tobi Garcia 10:09:00 [facility] HEPATIC FUNCTION PANEL 2020-08-29 Tobi Garcia 10:09:00 [facility] MAGNESIUM LEVEL 2020-08-29 Tobi Garcia 10:09:00 [facility] PHOSPHORUS LEVEL 2020-08-29 Tobi Garcia 10:09:00 [facility] PROTHROMBIN TIME WITH INR 2020-08-29 Temi Garcia 10:09:00 [facility] ESTIMATED GFR 2020-08-29 Tobi Garcia 10:09:00 [facility] URINE CULTURE 2020-08-29 Tobi Garcia 07:15:00 [facility] URINALYSIS SCREEN AND MICROSCOPY, 2020-08-29 Tobi Garcia WITH REFLEX TO CULTURE 07:15:00 [facility] BLOOD CULTURE, AEROBIC & ANAEROBIC 2020-08-29 Temi Garciaist 05:56:00 [facility] BLOOD CULTURE, AEROBIC & ANAEROBIC 2020-08-29 Tobi Garcia 05:38:00 [facility] COVID-19 QUALITATIVE RT-PCR 2020-08-29 Rhoda Baker odist 04:33:00 [facility] HEMOGLOBIN & HEMATOCRIT 2020-08-29 Delmi Garcia t 04:00:00 [facility] [place] CRITICAL CARE, E/M 30-74 2020-08-28 SamuelRuddyRhoda Meth odist MINUTES 22:17:31 [facility] ECG ED PRELIMINARY INTERPRETATION 2020-08-28 Rhoda Baker 22:17:31 [facility] HC COMPLETE BLD COUNT W/AUTO DIFF 2020-08-28 Rhoda Baker 21:57:00 [facility] PROTHROMBIN TIME WITH INR 2020-08-28 Rhoda Baker ist 21:57:00 [facility] TYPE AND SCREEN 2020-08-28 Rhoda Baker 21:57:00 [facility] COMPREHENSIVE METABOLIC PANEL 2020-08-28 Rhoda Baker thodist 21:57:00 [facility] LIPASE LEVEL 2020-08-28 Rhoda Baker 21:57:00 [facility] PARTIAL THROMBOPLASTIN TIME (PTT) 2020-08-28 Rhoda Baker 21:57:00 [facility] ESTIMATED GFR 2020-08-28 Maxx Doan 21:57:00 Hospital PREPARE RBC 2020-08-28 Tobi Garcia 21:57:00 [facility] ECG 12-LEAD 2020-08-28 Rhoda Baker 21:47:56 [facility] MAGNESIUM LEVEL 2020-08-20 Aubrey Carmichael 12:16:00 [facility] BASIC METABOLIC PANEL 2020-08-20 Aubrey Carmichael 12:14:00 [facility] ABN TEST REFUSAL 2020-08-20 Aubrey Carmichael 12:14:00 [facility] PARATHYROID HORMONE 2020-08-20 Aubrey Carmichael 12:14:00 [facility] CBC WITH PLATELET AND DIFFERENTIAL 2020-08-11 Jimbo Berkowitz 10:00:00 [facility] BASIC METABOLIC PANEL 2020-08-11 Krishna Webb 10:00:00 [facility] HEPATIC FUNCTION PANEL 2020-08-11 Krishna Webb 10:00:00 [facility] MAGNESIUM LEVEL 2020-08-11 Krishna Webb 10:00:00 [facility] PROTHROMBIN TIME WITH INR 2020-08-11 Krishna Webb ist 10:00:00 [facility] PHOSPHORUS LEVEL 2020-08-11 Krishna Webb Taoist 10:00:00 [facility] ESTIMATED GFR 2020-08-11 Krishna Webb Taoist 10:00:00 [facility] HC COMPLETE BLD COUNT W/AUTO DIFF 2020-08-10 Santy Berkowitz gold Taoist 10:38:00 [facility] COMPREHENSIVE METABOLIC PANEL 2020-08-10 Krishna Webb thodist 10:38:00 [facility] PROTHROMBIN TIME WITH INR 2020-08-10 Krishna Webb Method ist 10:38:00 [facility] ESTIMATED GFR 2020-08-10 Krishna Webb Taoist 10:38:00 [facility] US ABDOMINAL PARACENTESIS IMAGING 2020-08-09 Martha Burns or Taoist 21:30:00 [facility] HC COMPLETE BLD COUNT W/AUTO DIFF 2020-08-09 Santy Berkowitz gold Taoist 10:27:00 Hospital RETICULOCYTE COUNT 2020-08-09 Donald Burns Taoist 10:27:00 [facility] COMPREHENSIVE METABOLIC PANEL 2020-08-09 Donald Burns M ethodist 10:27:00 Hospital PROTHROMBIN TIME WITH INR 2020-08-09 Donald Burns [facility] 10:27:00 Hospital FIBRINOGEN 2020-08-09 BurnsGirma kwantor Taoist 10:27:00 Hospital ESTIMATED GFR 2020-08-09 Girma Burnstor Taoist 10:27:00 Hospital POC GLUCOSE 2020-08-09 Girma Burnstor Taoist 02:24:00 Hospital HEMOGLOBIN & HEMATOCRIT 2020-08-08 Santy Berkowitzina Method ist 21:46:00 Hospital HC COMPLETE BLD COUNT W/AUTO DIFF 2020-08-08 Martha Burns or [facility]ist 09:39:00 Hospital MAGNESIUM LEVEL 2020-08-08 Girma Burnstor Taoist 09:39:00 Hospital PHOSPHORUS LEVEL 2020-08-08 Girma Burnstor Taoist 09:39:00 Hospital HEPATIC FUNCTION PANEL 2020-08-08 Donald Burns Methodis t 09:39:00 Hospital PROTHROMBIN TIME WITH INR 2020-08-08 Azeem, Donald [facility] 09:39:00 Hospital BASIC METABOLIC PANEL 2020-08-08 Azeem Donald Taoist 09:39:00 Hospital ESTIMATED GFR 2020-08-08 Azeem Donald [facility] 09:39:00 Hospital HC COMPLETE BLD COUNT W/AUTO DIFF 2020-08-07 Girma Burnst or [facility]ist 10:05:00 Hospital PROTHROMBIN TIME WITH INR 2020-08-07 Girma Bunrstor [facility] dist 10:05:00 Hospital BASIC METABOLIC PANEL 2020-08-07 Burns, Donald [facility]ist 09:00:00 Hospital HEPATIC FUNCTION PANEL 2020-08-07 Girma Burnstor Methodis t 09:00:00 Hospital MAGNESIUM LEVEL 2020-08-07 Azeem Donald Taoist 09:00:00 Hospital PHOSPHORUS LEVEL 2020-08-07 Azeem, Donald [facility] 09:00:00 Hospital ESTIMATED GFR 2020-08-07 Girma Burnstor [facility] 09:00:00 Hospital US ABDOMINAL LIMITED 2020-08-06 Ilene Berkowitz [facility] 22:47:44 Hospital BASIC METABOLIC PANEL 2020-08-06 Azeem Donald [facility]ist 09:36:00 Hospital HEPATIC FUNCTION PANEL 2020-08-06 Girma Burnstor Methodis t 09:36:00 Hospital HC COMPLETE BLD COUNT W/AUTO DIFF 2020-08-06 Martha Burns or [facility]ist 09:36:00 Hospital MAGNESIUM LEVEL 2020-08-06 Azeem Donald [facility]ist 09:36:00 Hospital PHOSPHORUS LEVEL 2020-08-06 Burns, Donald Taoist 09:36:00 Hospital FOLATE LEVEL 2020-08-06 Azeem Donald Taoist 09:36:00 Hospital VITAMIN B12 LEVEL 2020-08-06 Girma Burnstor Taoist 09:36:00 Hospital RETICULOCYTE COUNT 2020-08-06 Azeem Donald Taoist 09:36:00 Hospital FERRITIN LEVEL 2020-08-06 Azeem Donald [facility] 09:36:00 Hospital HAPTOGLOBIN 2020-08-06 Azeem Donald Taoist 09:36:00 Hospital TOTAL IRON BINDING CAPACITY 2020-08-06 Donald Burns hodist 09:36:00 Hospital LDH 2020-08-06 Donald Burnsist 09:36:00 Hospital DIRECT KATIE' (MIRZA) 2020-08-06 Donald Burns Taoist 09:36:00 Hospital PERIPHERAL SMEAR 2020-08-06 Donald Burns Taoist 09:36:00 Hospital PROTHROMBIN TIME WITH INR 2020-08-06 Donald Burns [facility] 09:36:00 Hospital TYPE AND SCREEN 2020-08-06 Donald Burns Taoist 09:36:00 Hospital ESTIMATED GFR 2020-08-06 Donald Burns 09:36:00 Hospital BASIC METABOLIC PANEL 2020-08-05 Donald Burns Taoist 09:39:00 Hospital HEPATIC FUNCTION PANEL 2020-08-05 Donald Burns t 09:39:00 Hospital HC COMPLETE BLD COUNT W/AUTO DIFF 2020-08-05 Martha Burns or Taoist 09:39:00 Hospital MAGNESIUM LEVEL 2020-08-05 Donald Burns Taoist 09:39:00 Hospital PHOSPHORUS LEVEL 2020-08-05 Donald Burnsist 09:39:00 Hospital PROTHROMBIN TIME WITH INR 2020-08-05 Donald Burns [facility] 09:39:00 Hospital ESTIMATED GFR 2020-08-05 Donald Burns [facility] 09:39:00 Hospital HC COMPLETE BLD COUNT W/AUTO DIFF 2020-08-04 Gary Webb Taoist 09:31:00 [facility] PROTHROMBIN TIME WITH INR 2020-08-04 Krishna Webb ist 09:31:00 [facility] BASIC METABOLIC PANEL 2020-08-04 Krishna Webb 09:31:00 [facility] HEPATIC FUNCTION PANEL 2020-08-04 Krishna Webb 09:31:00 [facility] PHOSPHORUS LEVEL 2020-08-04 Krishna Webb 09:31:00 [facility] MAGNESIUM LEVEL 2020-08-04 Krishna Webb 09:31:00 [facility] ESTIMATED GFR 2020-08-04 Krishna Webb Taoist 09:31:00 [facility] HC COMPLETE BLD COUNT W/AUTO DIFF 2020-08-03 Gary Webb Taoist 10:26:00 [facility] PROTHROMBIN TIME WITH INR 2020-08-03 Krishna Webb Method ist 10:26:00 [facility] BASIC METABOLIC PANEL 2020-08-03 Krishna Webb Taoist 10:26:00 [facility] HEPATIC FUNCTION PANEL 2020-08-03 Krishna Webb Taoist 10:26:00 [facility] PHOSPHORUS LEVEL 2020-08-03 Krishna Webb Taoist 10:26:00 [facility] MAGNESIUM LEVEL 2020-08-03 Krishna Webb Taoist 10:26:00 [facility] ESTIMATED GFR 2020-08-03 Krishna Webb Taoist 10:26:00 [facility] SMEAR REVIEW 2020-08-03 Krishna Webb Taoist 10:26:00 [facility] US ABDOMINAL PARACENTESIS IMAGING 2020-08-02 Gary Webb Taoist 16:00:00 [facility] AEROBIC CULTURE 2020-08-02 Krishna Webb Taoist 15:58:00 [facility] ANAEROBIC CULTURE 2020-08-02 Krishna Webb 15:58:00 [facility] GRAM STAIN 2020-08-02 Krishna Webb Taoist 15:58:00 [facility] PROTEIN, MISC FLUID 2020-08-02 Krishna Webb Taoist 15:58:00 [facility] CELL COUNT AND DIFFERENTIAL, BODY 2020-08-02 Gary Webb Taoist FLUID 15:58:00 [facility] ALBUMIN, MISC FLUID 2020-08-02 Krishna Webb Taoist 15:58:00 [facility] HC COMPLETE BLD COUNT W/AUTO DIFF 2020-08-02 Gary Webb Taoist 09:42:00 [facility] PROTHROMBIN TIME WITH INR 2020-08-02 Krishna Webb Method ist 09:42:00 [facility] BASIC METABOLIC PANEL 2020-08-02 Krishna Webb Taoist 09:42:00 [facility] HEPATIC FUNCTION PANEL 2020-08-02 RoldanrKrishna 09:42:00 [facility] PHOSPHORUS LEVEL 2020-08-02 RoldanrKrishna 09:42:00 [facility] MAGNESIUM LEVEL 2020-08-02 RoldanrKrishnaist 09:42:00 [facility] HEMOGLOBIN A1C 2020-08-02 RoldanrKrishna 09:42:00 [facility] ESTIMATED GFR 2020-08-02 Krishna Webb 09:42:00 [facility] URINE CULTURE 2020-08-02 Krishna Webb 04:57:00 [facility] URINALYSIS SCREEN AND MICROSCOPY, 2020-08-02 Gary Webb WITH REFLEX TO CULTURE 04:57:00 [facility] COVID-19 QUALITATIVE RT-PCR 2020-08-02 Krishna Webb 04:33:00 [facility] BLOOD CULTURE, AEROBIC & ANAEROBIC 2020-08-02 Elisabeth Webb 03:34:00 [facility] HC COMPLETE BLD COUNT W/AUTO DIFF 2020-08-02 Gary Webb 03:34:00 [facility] BASIC METABOLIC PANEL 2020-08-02 Krishna Webb 03:33:00 [facility] HEPATIC FUNCTION PANEL 2020-08-02 Krishna Webb 03:33:00 [facility] MAGNESIUM LEVEL 2020-08-02 Krishna Webb 03:33:00 [facility] PHOSPHORUS LEVEL 2020-08-02 Krishna Webb 03:33:00 [facility] PROTHROMBIN TIME WITH INR 2020-08-02 Krishna Webb ist 03:33:00 [facility] ESTIMATED GFR 2020-08-02 Krishna Webb 03:33:00 [facility] TYPE AND SCREEN 2020-08-02 Krishna Webb 03:32:00 [facility] PREPARE RBC 2020-08-02 Krishna Webb 03:32:00 [facility] BLOOD CULTURE, AEROBIC & ANAEROBIC 2020-08-02 Elisabeth Webb 03:24:00 [facility] XR CHEST 1 VW PORTABLE 2020-08-02 Krishna Webb 01:42:40 [facility] ECG 12-LEAD 2020-08-02 Krishna Webb 00:49:23 [facility] BLOOD CULTURE 2020-06-[address] [facility] - 09:03:00 [facility] BASIC METABOLIC PANEL (7) 2020-06-27 [facility] - 04:36:00 [facility] CBC W/PLT COUNT & AUTO 2020-06-27 [facility], Zack [facility] - DIFFERENTIAL 04:36:00 [facility] HEPATIC FUNCTION PANEL 2020-06-[address] [facility]es - 04:36:00 [facility] AMMONIA 2020-06-26 [facility] - 23:40:00 [facility] COMPREHENSIVE METABOLIC PANEL 2020-06-26 [facility], [facility]redondo [facility] - 23:26:00 [facility] APTT 2020-06-26 [facility], [facility] - 23:26:00 [facility] PROTHROMBIN TIME/INR 2020-06-26 [facility], Zack [facility] - 23:26:00 [facility] MAGNESIUM 2020-06-26 [facility] - 23:26:00 [facility] POCT-GLUCOSE METER 2020-06-[address] [facility] - 21:27:00 [facility] SPIROMETRY, DIFFUSION, LUNG 2020-05-16 Butkevich, Meth odist VOLUMES, MIPS/MEPS 19:33:19 [facility] HC COMPLETE BLD COUNT W/AUTO DIFF 2020-05-16 Martha Burns or Taoist 09:30:00 Hospital BASIC METABOLIC PANEL 2020-05-16 Donald Burns 09:30:00 Hospital HEPATIC FUNCTION PANEL 2020-05-16 Donald Burns t 09:30:00 Hospital PHOSPHORUS LEVEL 2020-05-16 Donald Burns 09:30:00 Hospital MAGNESIUM LEVEL 2020-05-16 Donald Burns 09:30:00 Hospital PROTHROMBIN TIME WITH INR 2020-05-16 Burns, Donald Metho dist 09:30:00 Hospital ESTIMATED GFR 2020-05-16 Burns, Donald Taoist 09:30:00 Hospital IR VENOUS EMBOLIZATION 2020-05-[address] 21:34:00 Hospital XR CHEST 2 VW 2020-05-15 Tobi Otoole 18:00:00 [facility] HC COMPLETE BLD COUNT W/AUTO DIFF 2020-05-15 BurnsGirma kwant or Taoist 10:00:00 Hospital COMPREHENSIVE METABOLIC PANEL 2020-05-15 Burns, Kervin ethodist 10:00:00 Hospital PHOSPHORUS LEVEL 2020-05-15 Burns, Donald Taoist 10:00:00 Hospital MAGNESIUM LEVEL 2020-05-15 Burns, Donald Taoist 10:00:00 Hospital PROTHROMBIN TIME WITH INR 2020-05-15 Burns, Donald Metho dist 10:00:00 Hospital MISCELLANEOUS REFERRAL TEST 2020-05-15 Segundo Canales thodist 10:00:00 Hospital ESTIMATED GFR 2020-05-15 Burns, Donald Taoist 10:00:00 Hospital HC COMPLETE BLD COUNT W/AUTO DIFF 2020-05-14 BurnsGirma kwant or Taoist 10:51:00 [facility] COMPREHENSIVE METABOLIC PANEL 2020-05-14 Burns, Kervin ethodist 10:51:00 Hospital PHOSPHORUS LEVEL 2020-05-14 Burns, Donald Taoist 10:51:00 Hospital MAGNESIUM LEVEL 2020-05-14 Burns, Donald Taoist 10:51:00 Hospital PROTHROMBIN TIME WITH INR 2020-05-14 Burns, Donald Metho dist 10:51:00 Hospital ESTIMATED GFR 2020-05-14 Burns, Donald Taoist 10:51:00 Hospital PROTEIN, URINE, 24 HOUR 2020-05-14 Delmi Otoole t 05:30:[address] [facility] [address] ABDOMEN WWO CONTRAST PELVIS W 2020-05-13 Hannah Berkowitz na Taoist CONTRAST 17:24:08 Hospital HC COMPLETE BLD COUNT W/AUTO DIFF 2020-05-13 Martha Burns 10:25:00 Hospital COMPREHENSIVE METABOLIC PANEL 2020-05-13 Donald Burns ethfarzaneh 10:25:00 Hospital PHOSPHORUS LEVEL 2020-05-13 Donald Burns 10:25:00 Hospital MAGNESIUM LEVEL 2020-05-13 Donald Burns 10:25:00 Hospital PROTHROMBIN TIME WITH INR 2020-05-13 Donald Burns Metho dist 10:25:00 Hospital ESTIMATED GFR 2020-05-13 Donald Burns 10:25:00 Hospital ECG 12-LEAD 2020-05-13 Tobi Otoole 04:00:37 [facility] CV RIGHT HEART CATH SELECTIVE 2020-05-13 Me jez Otoole CORONARY 00:06:21 [facility] HLA TRANSPLANT EVALUATION 2020-05-12 Segundo Canales odrosanna 21:11:00 Hospital LOW RESOLUTION FULL TYPING BY SSO 2020-05-12 Segundo Canales 21:11:00 [facility] SINGLE ANTIGEN BEADS 2020-05-12 Segundo Canales 21:11:00 [facility] C1Q CLASS 1 & 2 ANTIBODY 2020-05-12 Segundo Canaleso dist 21:11:00 [facility] US CAROTID DUPLEX BILATERAL 2020-05-12 Segundo Canales thodist 20:10:30 [facility] HEMOCHROMATOSIS (HFE) 3 MUTATIONS 2020-05-12 Segundo Canales 19:14:00 Hospital CYTOMEGALOVIRUS AB, IGG 2020-05-12 Segundo Canales Method ist 19:13:00 Hospital CYTOMEGALOVIRUS AB, IGM 2020-05-12 Segundo Canales Method ist 19:13:00 Hospital SYPHILIS TREPONEMA SCREEN WITH RPR 2020-05-12 Tremaine Canales CONFIRMATION (REVERSE ALGORITHM) 19:13:00 Hospital HEPATITIS A ANTIBODY TOTAL 2020-05-12 Segundo Canales hodist 19:13:00 Hospital HEPATITIS A ANTIBODY IGM 2020-05-12 Segundo Canaleso dist 19:13:00 Hospital HEPATITIS B SURFACE ANTIGEN 2020-05-12 Segundo Canales Sd thodist 19:13:00 Hospital HEPATITIS B SURFACE ANTIBODY 2020-05-12 Segundo Canales ethodist 19:13:00 Hospital HEPATITIS BE AG 2020-05-12 Segundo Canales 19:13:00 Hospital HEPATITIS BE AB 2020-05-12 Segundo Canales 19:13:00 Hospital HEPATITIS C ANTIBODY 2020-05-12 Parker, Segundo Britton 19:13:00 Hospital TYPE AND SCREEN 2020-05-12 Segundo Canales 19:09:00 Hospital PARTIAL THROMBOPLASTIN TIME (PTT) 2020-05-12 Segundo Canales 19:08:00 Hospital FIBRINOGEN 2020-05-12 Segundo Canales 19:08:00 Hospital HEMOGLOBIN A1C 2020-05-12 Parker, Segundo Britton 19:07:00 Hospital DRUG VAZQUEZ 9, SER/DARRIUS, SCRN W/RFLX 2020-05-12 Segundo Canales TO CONF 19:07:00 Hospital ZINC LEVEL, SERUM 2020-05-12 Segundo Canales 18:35:00 Hospital CORTISOL, FREE BY ED/LC-MS/MS 2020-05-12 Segundo Canales 18:35:[address] CHEST WO CONTRAST 2020-05-12 Segundo Canales 17:10:00 Hospital HIV AG/AB COMBINATION 2020-05-12 Segundo Canales t 15:17:00 Hospital HEPATITIS B CORE ANTIBODY TOTAL 2020-05-12 Segundo Canales 15:17:00 Hospital ANTI MITOCHONDRIA SCREEN 2020-05-12 Segundo Canaleso dist 15:17:00 Hospital T3, FREE 2020-05-12 Segundo Canales 15:17:00 Hospital CARCINOEMBRYONIC ANTIGEN (CEA) 2020-05-12 Segundo Canales 15:17:00 Hospital CANCER ANTIGEN 125 2020-05-12 Segundo Canales 15:17:00 Hospital CANCER ANTIGEN 19-9 2020-05-12 Segundo Canales 15:17:00 Hospital PROSTATE SPECIFIC ANTIGEN 2020-05-12 Segundo Canales odrosanna 15:17:00 Hospital MISCELLANEOUS REFERRAL TEST 2020-05-12 Segundo Canales Me thodist 15:17:00 Hospital HARPREET-FELDMAN VIRUS ANTIBODY TEST 2020-05-12 Segundo Canales 15:16:00 Hospital PREALBUMIN LEVEL 2020-05-12 Segundo Canales 15:16:00 Hospital C-REACTIVE PROTEIN 2020-05-12 Segundo Canales 15:16:00 Hospital VITAMIN D 25 HYDROXY LEVEL 2020-05-12 Segundo Canales Met hodist 15:16:00 Hospital CERULOPLASMIN LEVEL 2020-05-12 Segundo Canales 15:16:00 Hospital ALPHA-1 ANTITRYPSIN LEVEL 2020-05-12 Segundo Canales 15:16:00 Hospital CREATININE CLEARANCE, URINE, 24 2020-05-12 Segundo Canales HOUR 15:16:00 Hospital CORTISOL LEVEL, RANDOM 2020-05-[address] 15:16:00 Hospital SERUM ELECTROPHORESIS 2020-05-12 Segundo Canales t 15:16:00 Hospital LIPID PANEL 2020-05-12 Segundo Canales 15:16:00 Hospital ESTIMATED GFR 2020-05-12 Segundo Canales 15:16:00 Hospital HC COMPLETE BLD COUNT W/AUTO DIFF 2020-05-12 Gary Webb 10:00:00 [facility] PROTHROMBIN TIME WITH INR 2020-05-12 Krishna Webb ist 10:00:00 [facility] BASIC METABOLIC PANEL 2020-05-12 Krishna Webb 09:00:00 [facility] MAGNESIUM LEVEL 2020-05-12 Krishna Webb 09:00:00 [facility] HEPATIC FUNCTION PANEL 2020-05-12 Krishna Webb 09:00:00 [facility] PHOSPHORUS LEVEL 2020-05-12 Krishna Webb 09:00:00 [facility] ESTIMATED GFR 2020-05-12 Krishna Webb 09:00:00 [facility] BASIC METABOLIC PANEL 2020-05-11 Krishna Webb 10:00:00 [facility] HC COMPLETE BLD COUNT W/AUTO DIFF 2020-05-11 Dinakar, Satis h Taoist 10:00:00 [facility] MAGNESIUM LEVEL 2020-05-11 Dinakar, Krishna Taoist 10:00:00 [facility] HEPATIC FUNCTION PANEL 2020-05-11 Dinakar, Krishna Taoist 10:00:00 [facility] PHOSPHORUS LEVEL 2020-05-11 Dinakar, Krishna Taoist 10:00:00 [facility] PROTHROMBIN TIME WITH INR 2020-05-11 Dinakar, Krishna Method ist 10:00:00 [facility] ESTIMATED GFR 2020-05-11 Dinakar, Krishna Taoist 10:00:00 [facility] BASIC METABOLIC PANEL 2020-05-10 Dinakar, Krishna Taoist 10:05:00 [facility] HC COMPLETE BLD COUNT W/AUTO DIFF 2020-05-10 Dinakar, Gary soto Taoist 10:05:00 [facility] MAGNESIUM LEVEL 2020-05-10 Dinakar, Krishna Taoist 10:05:00 [facility] HEPATIC FUNCTION PANEL 2020-05-10 Dinakar, Krishna Taoist 10:05:00 [facility] PHOSPHORUS LEVEL 2020-05-10 Dinakar, Krishna Taoist 10:05:00 [facility] PROTHROMBIN TIME WITH INR 2020-05-10 Dinakar, Krishna Method ist 10:05:00 [facility] ESTIMATED GFR 2020-05-10 Dinakar, Krishna Taoist 10:05:00 [facility] PROTHROMBIN TIME WITH INR 2020-05-09 Temi Garcia ist 09:40:00 [facility] COMPREHENSIVE METABOLIC PANEL 2020-05-09 Me Jose thodist 09:40:00 [facility] HC COMPLETE BLD COUNT W/AUTO DIFF 2020-05-09 Tobi Garcia 09:40:00 [facility] ESTIMATED GFR 2020-05-09 Tobi Garcia 09:40:00 [facility] URINE CULTURE 2020-05-08 Segundo Canales 23:47:00 Hospital URINALYSIS SCREEN AND MICROSCOPY, 2020-05-08 Segundo Canales WITH REFLEX TO CULTURE 23:47:00 [facility] US ABDOMINAL DOPPLER 2020-05-08 Tobi Garcia 23:15:00 [facility] US HEPATIC 2020-05-08 Tobi Garcia 23:15:00 [facility] COVID-19 QUALITATIVE RT-PCR 2020-05-08 Leeroy Garcia 22:01:00 [facility] HC COMPLETE BLD COUNT W/AUTO DIFF 2020-05-08 Tobi Garcia 22:01:00 [facility] PROTHROMBIN TIME WITH INR 2020-05-08 Ronaldoalayna Burrell Method ist 22:01:00 [facility] COMPREHENSIVE METABOLIC PANEL 2020-05-08 [facility] Indra Sd thodist 22:01:00 [facility] MAGNESIUM LEVEL 2020-05-08 Tobi Garcia 22:01:00 [facility] PHOSPHORUS LEVEL 2020-05-08 [facility] Tobi Burrell 22:01:00 [facility] ESTIMATED GFR 2020-05-08 Tobi Garcia 22:01:00 [facility] TYPE AND SCREEN 2020-05-08 Segundo Canales 22:01:00 Hospital TOTAL IRON BINDING CAPACITY 2020-05-08 Segundo Canales Sd thodist 22:01:00 Hospital ALPHA FETOPROTEIN 2020-05-08 Segundo Canales 22:01:00 [facility] THYROID STIMULATING HORMONE 2020-05-08 Segundo Canales thodist 22:01:00 Hospital FERRITIN LEVEL 2020-05-08 Segundo Canales 22:01:00 Hospital BLOOD CULTURE, AEROBIC & ANAEROBIC 2020-05-08 Tremaine Canales h Mirna Britton 21:50:00 Hospital BLOOD CULTURE, AEROBIC & ANAEROBIC 2020-05-08 Tremaine Canales 21:20:00 Hospital HEPATIC FUNCTION PANEL 2020-04-14 Vu, Ronna K. Taoist 10:30:00 Hospital MAGNESIUM LEVEL 2020-04-14 Vu, Ronna K. Taoist 10:30:00 Hospital PHOSPHORUS LEVEL 2020-04-14 Vu, Ronna K. Taoist 10:30:00 Hospital PROTHROMBIN TIME WITH INR 2020-04-14 Vu, Ronna K. Method ist 10:30:00 [facility] ESTIMATED GFR 2020-04-14 Dinakar, Krishna Taoist 10:30:00 [facility] MANUAL DIFFERENTIAL 2020-04-14 DinKrishna arroyo Taoist 10:30:00 [facility] BASIC METABOLIC PANEL 2020-04-14 Vu, Ronna K. Taoist 10:30:00 Hospital CBC WITH PLATELET AND DIFFERENTIAL 2020-04-14 Vu, Ronna K. Taoist 10:30:00 Hospital XR PANOREX 2020-04-13 Fauria, Ilene Taoist 15:17:49 [facility] BASIC METABOLIC PANEL 2020-04-13 Dinakar, Krishna Taoist 11:20:00 [facility] HC COMPLETE BLD COUNT W/AUTO DIFF 2020-04-13 DinakarGary Taoist 11:20:00 [facility] MAGNESIUM LEVEL 2020-04-13 Dinakar, Krishna Taoist 11:20:00 [facility] HEPATIC FUNCTION PANEL 2020-04-13 Dinakar, Krishna Taoist 11:20:00 [facility] PHOSPHORUS LEVEL 2020-04-13 Dinakar, Krishna Taoist 11:20:00 [facility] PROTHROMBIN TIME WITH INR 2020-04-13 Dinakar, Krishna Method ist 11:20:00 [facility] ESTIMATED GFR 2020-04-13 Dinakar, Krishna Taoist 11:20:00 [facility] BASIC METABOLIC PANEL 2020-04-12 Dinakar, Krishna Taoist 11:40:00 [facility] HC COMPLETE BLD COUNT W/AUTO DIFF 2020-04-12 Dinakar, Gary soto Taoist 11:40:00 [facility] MAGNESIUM LEVEL 2020-04-12 Dinakar, Krishna Taoist 11:40:00 [facility] HEPATIC FUNCTION PANEL 2020-04-12 Dinakar, Krishna Taoist 11:40:00 [facility] PHOSPHORUS LEVEL 2020-04-12 Dinakar, Krishna Taoist 11:40:00 [facility] PROTHROMBIN TIME WITH INR 2020-04-12 Dinakar, Krishna Method ist 11:40:00 [facility] ESTIMATED GFR 2020-04-12 Dinakar, Krishna Taoist 11:40:00 [facility] HC COMPLETE BLD COUNT W/AUTO DIFF 2020-04-11 Dinakar, Satis h Taoist 10:30:00 [facility] PROTHROMBIN TIME WITH INR 2020-04-11 Dinakar, Krishna Method ist 10:30:00 [facility] BASIC METABOLIC PANEL 2020-04-11 Dinakar, Krishna Taoist 10:00:00 [facility] MAGNESIUM LEVEL 2020-04-11 Dinakar, Krishna Taoist 10:00:00 [facility] HEPATIC FUNCTION PANEL 2020-04-11 Dinakar, Krishna Taoist 10:00:00 [facility] PHOSPHORUS LEVEL 2020-04-11 Dinakar, Krishna Taoist 10:00:00 [facility] ESTIMATED GFR 2020-04-11 Dinakar, Krishna Taoist 10:00:00 [facility] XR ABDOMEN 1 VW PORTABLE 2020-04-10 Ilene Berkowitz Metho dist 20:20:49 Hospital US ABDOMINAL LIMITED 2020-04-10 Ilene Berkowitz 18:30:00 Hospital HC COMPLETE BLD COUNT W/AUTO DIFF 2020-04-10 Dinakar, Satis h Taoist 11:20:00 [facility] PROTHROMBIN TIME WITH INR 2020-04-10 Dinakar, Krishna Method ist 11:20:00 [facility] BASIC METABOLIC PANEL 2020-04-10 Dinakar, Krishna Taoist 10:00:00 [facility] MAGNESIUM LEVEL 2020-04-10 Dinakar, Krishna Taoist 10:00:00 [facility] HEPATIC FUNCTION PANEL 2020-04-10 Dinakar, Krishna Taoist 10:00:00 [facility] PHOSPHORUS LEVEL 2020-04-10 Dinakar, Krishna Taoist 10:00:00 [facility] ESTIMATED GFR 2020-04-10 Dinakar, Krishna Taoist 10:00:00 [facility] BASIC METABOLIC PANEL 2020-04-09 Dinakar, Krishna Taoist 12:03:00 [facility] HC COMPLETE BLD COUNT W/AUTO DIFF 2020-04-09 Dinakar, Satis h Taoist 12:03:00 [facility] MAGNESIUM LEVEL 2020-04-09 Dinakar, Krishna Taoist 12:03:00 [facility] HEPATIC FUNCTION PANEL 2020-04-09 Dinakar, Krishna Taoist 12:03:00 [facility] PROTHROMBIN TIME WITH INR 2020-04-09 Dinakar, Krishna Method ist 12:03:00 [facility] PHOSPHORUS LEVEL 2020-04-09 Dinakar, Krishna Taoist 12:03:00 [facility] ESTIMATED GFR 2020-04-09 Dinakar, Krishna Taoist 12:03:00 [facility] CBC WITH PLATELET AND DIFFERENTIAL 2020-04-08 Dinakar, Sati sh Taoist 11:20:00 [facility] PROTHROMBIN TIME WITH INR 2020-04-08 Dinakar, Krishna Method ist 11:20:00 [facility] MANUAL DIFFERENTIAL 2020-04-08 Dinakar, Krishna Taoist 11:20:00 [facility] BASIC METABOLIC PANEL 2020-04-08 Dinakar, Krishna Taoist 10:00:00 [facility] MAGNESIUM LEVEL 2020-04-08 Dinakar, Krishna Taoist 10:00:00 [facility] HEPATIC FUNCTION PANEL 2020-04-08 Dinakar, Krishna Taoist 10:00:00 [facility] PHOSPHORUS LEVEL 2020-04-08 Dinakar, Krishna Taoist 10:00:00 [facility] ESTIMATED GFR 2020-04-08 Dinakar, Krishna Taoist 10:00:00 [facility] HC COMPLETE BLD COUNT W/AUTO DIFF 2020-04-07 Martha Burns or Taoist 07:35:00 [facility] BASIC METABOLIC PANEL 2020-04-07 Girma Burnstor Taoist 07:35:00 Hospital HEPATIC FUNCTION PANEL 2020-04-07 Girma Burnstor Methodis t 07:35:00 Hospital MAGNESIUM LEVEL 2020-04-07 Azeem Donald Taoist 07:35:00 Hospital PROTHROMBIN TIME WITH INR 2020-04-07 Burns, Donald Metho dist 07:35:00 Hospital ESTIMATED GFR 2020-04-07 Girma Burnstor Taoist 07:35:00 Hospital HC COMPLETE BLD COUNT W/AUTO DIFF 2020-04-06 Girma Burnst or Taoist 10:00:00 Hospital BASIC METABOLIC PANEL 2020-04-06 Girma Burnstor Taoist 10:00:00 Hospital HEPATIC FUNCTION PANEL 2020-04-06 Burns, Donald Methodis t 10:00:00 Hospital MAGNESIUM LEVEL 2020-04-06 Burns, Donald Taoist 10:00:00 Hospital PROTHROMBIN TIME WITH INR 2020-04-06 Burns, Donald Metho dist 10:00:00 Hospital ESTIMATED GFR 2020-04-06 Burns, Donald Taoist 10:00:00 Hospital HC COMPLETE BLD COUNT W/AUTO DIFF 2020-04-05 Burns, Hect or Taoist 11:00:00 Hospital BASIC METABOLIC PANEL 2020-04-05 Burns, Donald Taoist 11:00:00 Hospital HEPATIC FUNCTION PANEL 2020-04-05 Burns, Donald Methodis t 11:00:00 Hospital MAGNESIUM LEVEL 2020-04-05 Burns, Donald Taoist 11:00:00 Hospital PROTHROMBIN TIME WITH INR 2020-04-05 Burns, Donald Metho dist 11:00:00 Hospital ESTIMATED GFR 2020-04-05 Burns, Donald Taoist 11:00:00 Hospital HC COMPLETE BLD COUNT W/AUTO DIFF 2020-04-04 Burns Hect or Taoist 10:05:00 Hospital BASIC METABOLIC PANEL 2020-04-04 Burns, Donald Taoist 10:05:00 Hospital HEPATIC FUNCTION PANEL 2020-04-04 Burns, Donald Methodis t 10:05:00 Hospital MAGNESIUM LEVEL 2020-04-04 Burns, Donald Taoist 10:05:00 Hospital PROTHROMBIN TIME WITH INR 2020-04-04 Burns, Donald Metho dist 10:05:00 Hospital ESTIMATED GFR 2020-04-04 Burns, Donald Taoist 10:05:00 Hospital HC COMPLETE BLD COUNT W/AUTO DIFF 2020-04-03 Burns Hect or Taoist 11:40:00 Hospital BASIC METABOLIC PANEL 2020-04-03 Burns, Donald Taoist 11:40:00 Hospital HEPATIC FUNCTION PANEL 2020-04-03 Burns, Donald Methodis t 11:40:00 Hospital MAGNESIUM LEVEL 2020-04-03 Burns, Donald Taoist 11:40:00 Hospital PHOSPHORUS LEVEL 2020-04-03 Burns, Donald Taoist 11:40:00 Hospital PROTHROMBIN TIME WITH INR 2020-04-03 Donald Burns Metho dist 11:40:00 Hospital ESTIMATED GFR 2020-04-03 Donald Burns Taoist 11:40:00 Hospital TTE COMPLETE, W CONTRAST, W 2020-04-03 Ilene Berkowitz Sd thodist DOPPLER ([id number]) 04:00:00 Hospital AEROBIC CULTURE 2020-04-02 Nuria Dennis 16:39:00 Hospital ANAEROBIC CULTURE 2020-04-02 Nuria Dennis Taoist 16:39:00 Hospital GRAM STAIN 2020-04-02 Nuria Dennis Taoist 16:39:00 Hospital PROTEIN, MISC FLUID 2020-04-02 Ilene Berkowitz 16:39:00 Hospital ALBUMIN, MISC FLUID 2020-04-02 Ilene Berkowitz 16:39:00 Hospital CELL COUNT AND DIFFERENTIAL, BODY 2020-04-02 Nuria Dennis FLUID 16:38:00 Hospital BODY FLUID CONSULT 2020-04-02 Nuria Dennis Taoist 16:38:00 Hospital US ABDOMINAL PARACENTESIS IMAGING 2020-04-02 Nuria Dennis Taoist 16:35:00 Hospital CBC WITH PLATELET AND DIFFERENTIAL 2020-04-02 Girma Burns Taoist 10:40:00 Hospital BASIC METABOLIC PANEL 2020-04-02 Donald Burns Taoist 10:40:00 Hospital HEPATIC FUNCTION PANEL 2020-04-02 Donald Burns Methodis t 10:40:00 Hospital MAGNESIUM LEVEL 2020-04-02 Donald Burns Taoist 10:40:00 Hospital PHOSPHORUS LEVEL 2020-04-02 Girma Burnstor Taoist 10:40:00 Hospital PROTHROMBIN TIME WITH INR 2020-04-02 Girma Burnstor Metho dist 10:40:00 Hospital B NATRIURETIC PEPTIDE 2020-04-02 Donald Burns Taoist 10:40:00 Hospital ESTIMATED GFR 2020-04-02 Girma Burnstor Taoist 10:40:00 Hospital MANUAL DIFFERENTIAL 2020-04-02 Donald Burns Taoist 10:40:00 Hospital FIBRINOGEN 2020-04-01 MartinezCecy murphy Taoist 21:00:00 [facility] HC COMPLETE BLD COUNT W/AUTO DIFF 2020-04-01 Martha Burns or Taoist 11:00:00 Hospital BASIC METABOLIC PANEL 2020-04-01 Donald Burns Taoist 11:00:00 Hospital HEPATIC FUNCTION PANEL 2020-04-01 Donald Burns Methodis t 11:00:00 Hospital MAGNESIUM LEVEL 2020-04-01 Donald Burns Taoist 11:00:00 Hospital PHOSPHORUS LEVEL 2020-04-01 Donald Burns Taoist 11:00:00 Hospital PROTHROMBIN TIME WITH INR 2020-04-01 Donald Burns Metho dist 11:00:00 Hospital HEMOGLOBIN A1C 2020-04-01 Donald Burns Taoist 11:00:00 Hospital THYROID STIMULATING HORMONE 2020-04-01 Donald Burns Met hodist 11:00:00 Hospital T4 2020-04-01 Donald Burns Taoist 11:00:00 Hospital B NATRIURETIC PEPTIDE 2020-04-01 Donald Burns Taoist 11:00:00 Hospital ALPHA FETOPROTEIN 2020-04-01 Donald Burns Taoist 11:00:00 Hospital ESTIMATED GFR 2020-04-01 Donald Burns Taoist 11:00:00 [facility] URINALYSIS, AUTOMATED WITH 2020-04-01 Donald Burns Meth odist MICROSCOPY 08:50:00 Hospital TROPONIN 2020-04-01 Morocho, Ronna-[facility] Taoist 07:20:00 [facility] CT ABDOMEN PELVIS WO CONTRAST 2020-04-01 Dawn Figueredo thodist 06:53:40 [facility] US ABDOMINAL DOPPLER 2020-04-01 Dawn Figueredo 06:10:00 [facility] US ABDOMEN COMPLETE 2020-04-01 Dawn Figueredo 05:30:00 [facility] COVID-19 QUALITATIVE RT-PCR 2020-04-01 Dawn Figueredo odist 04:33:00 [facility] PROTHROMBIN TIME WITH INR 2020-04-01 Dawn Figueredo ist 04:26:00 [facility] PARTIAL THROMBOPLASTIN TIME (PTT) 2020-04-01 Sharlene Figueredo 04:26:00 [facility] LIPASE LEVEL 2020-04-01 Dawn Figueredoist 04:26:00 [facility] TROPONIN 2020-04-01 Ba[facility] Taoist 04:26:00 [facility] HC COMPLETE BLD COUNT W/AUTO DIFF 2020-04-01 Saad Morochooc-[facility] Taoist 03:12:00 [facility] COMPREHENSIVE METABOLIC PANEL 2020-04-01 Bailee [facility] M ethodist 03:12:00 [facility] TROPONIN 2020-04-01 Bailee [facility] Taoist 03:12:00 [facility] B NATRIURETIC PEPTIDE 2020-04-01 [facility] Taoist 03:12:00 [facility] ESTIMATED GFR 2020-04-01 Bailee [facility] Taoist 03:12:00 [facility] US DUPLEX VENOUS LOWER EXTREMITY 2020-04-01 Dawn Figueredo BILATERAL 02:50:00 [facility] XR CHEST 1 VW PORTABLE 2020-04-01 Dawn Figueredo 02:04:53 [facility] ECG 12-LEAD 2020-04-01 Bailee [facility] Taoist 00:22:47 [facility] Plan of Care Planned Activity Planned Date Details Comments Source Future Scheduled 2020-02-[address] [facility] - Test 00:00:00 (12+) [code = Medical Center DEPRESSION SCREENING (12+)] Future Scheduled 2018-06-[address] [facility] [address] [facility] - Test 00:00:00 WELLNESS (YEAR 2 or [facility] Center FIRST YEAR if no IPPE) [code = MEDICARE ANNUAL WELLNESS (YEAR 2 or FIRST YEAR if no IPPE)] Future Scheduled 2016-01-29 PNEUMOCOCCAL 65+ YRS [facility] - Test 00:00:00 (1 of 1 - Medical Center [id number] PCV13) [code = PNEUMOCOCCAL 65+ YRS (1 of 1 - [id number]_Sctrujo PCV13)] Future Scheduled 2001 SHINGLES VACCINES ([address] [facility] - Test 00:00:00 of 2) [code = SHINGLES Medic al Center VACCINES (1 of 2)] Future Scheduled 1970 DTAP/TDAP/TD VACCINES [facility] 00:[facility]:00 (1 - Tdap) [code = Medical C enter DTAP/TDAP/TD VACCINES (1 - Tdap)] Future Scheduled 1969 HEPATITIS C SCREENING [facility] 00:00:00 [code = HEPATITIS C Medical Center SCREENING] Future Scheduled 1963 COVID-19 VACCINE (1) [facility] Test 00:00:00 [code = COVID-[address] VACCINE (1)] Future Scheduled [address] [facility]00 [facility] colon (procedure) [code = 320821220] Future Scheduled 65+ [facility]OCO[facility] VACCINE (1 of 4 - PCV13) [code = 65+ PNEUMOCOCCAL VACCINE (1 of 4 - PCV13)] Future Scheduled COVID-19 VACCINE (1) [facility] Test [code = COVID-19 VACCINE (1)] Future Scheduled [facility] [code = COLONOSCOPY SCREENING] Future Scheduled SHINGLES VACCINES (#1) [facility] [code = SHINGLES VACCINES (#1)] Future Scheduled INFLUENZA [facility]ACCINE [facility] [code = INFLUENZA VACCINE] Encounters Start End Encounter Admission Attending Care Care Encounter Source Date/Time Date/Time Type Type Clinicians Facility Department ID 2020-09-23 2020-09-23 Telephone Alli 1.2.840.2 [id number] Methodi 00:00:00 00:00:[address] 3.430.2.7 Hospit a .3.210360 l .8 2020-09-19 2020-09-19 Office Margaret Carmichael2.840.5 [id number] Methodi 10:10:33 10:57:26 Visit Aubrey 58941.1.[address] Wilfredo 3.430.2.7 Hospit a .3.279909 l .8 2020-09-19 2020-09-19 Travel 1.2.840.1 1.2.133.856 [id number] Methodi 00:00:00 00:00:[address] 3.430.2.7 0.2.7.3.698 Ho spita .3.943211 084.8 l .8 2020-09-19 2020-09-19 Outpatient [facility] [id number] 00:00:00 00:00:00 AUBREY [address] 2020-08-28 2020-09-01 [facility] 1.2.840 .1 [id number] Methodi 16:40:00 15:58:00 Encounter Mynor Garcia 97581.1.[address] Burns, Donald 3.430.2.7 Hospita .3.886177 l .8 2020-08-28 2020-09-01 [facility] [id number] [place] 00:00:00 00:00:00 DONALD [address] 2020-08-30 2020-08-30 Surgery Hu, 1.2.840.1 [id number] Methodi 14:02:00 15:02:00 Otto Will 30795.1.[address] 3.430.2.7 Hospit a .3.976575 l .8 2020-08-30 2020-08-30 Anesthesia Annalisa, 1.2.840.1 [id number] 21 [id number] Methodi 13:18:00 13:51:00 [place] [address].1.[address] 3.430.2.7 Hospit a .3.399840 l .8 2020-08-29 2020-08-29 Documentat Mina, 1.2.840.1 [id number] 21 [id number] Methodi 00:00:00 00:00:00 tian Gavin [address]007.1.[address] Zen 3.430.2.7 Hospit a .3.415645 l .8 2020-08-22 2020-08-22 Telephone Amol, 1.2.840.4 [id number] Methodi 10:02:06 15:56:55 Consult Aubrey 49662.1.[address] Wilfredo 3.430.2.7 Hospit a .3.775939 l .8 2020-08-22 2020-08-22 [facility] [id number] [place] 00:00:00 00:00:00 AUBREY [address] 2020-08-21 2020-08-21 Travel 1.2.840.1 1.2.405.095 0007 [id number] Methodi 00:00:00 00:00:[address] 3.430.2.7 0.2.7.3.698 Ho spita .3.566106 084.8 l .8 2020-08-20 2020-08-20 Orders Amol, 1.2.840.5 [id number] Methodi 00:00:00 00:00:00 Only Aubrey 73256.1.[address] Wilfredo 3.430.2.7 Hospit a .3.394683 l .8 2020-08-20 2020-08-20 Orders Amol, 1.2.840.8 [id number] Methodi 00:00:00 00:00:00 Only Aubrey 78788.1.[address] Wilfredo 3.430.2.7 Hospit a .3.420227 l .8 2020-08-15 2020-08-15 Orders Parker 1.2.840.1 [id number] 1094 Methodi 00:00:00 00:00:00 Only Segundo Bradley 92080.1.[address] 3.430.2.7 Hospit a .3.919372 l .8 2020-08-01 2020-08-11 [facility] Krishna Webb 1.2.840.1 [id number] Methodi 17:40:00 16:48:00 Donald Gallardo 33954.1.[address] 3.430.2.7 Hospit a .3.137206 l .8 2020-08-01 2020-08-11 [facility] [id number] [address] 00:00:00 00:00:00 [facility] [address] 2020-08-08 2020-08-08 Documentat Delcano, 1.2.840.1 [id number] 21 [id number] Methodi 00:00:00 00:00:00 ion Romaine 34673.1.[address] Zen 3.430.2.7 Hospit a .3.693534 l .8 2020-08-08 2020-08-08 Orders Galati, 1.2.840.1 [id number] 3981 Methodi 00:00:00 00:00:00 Only Segundo Bradley 41915.1.[address] 3.430.2.7 Hospit a .3.351166 l .8 2020-08-07 2020-08-07 Documentat Delcano, 1.2.840.1 [id number] 21 [id number] Methodi 00:00:00 00:00:00 ion Romaine 94404.1.[address] Zen 3.430.2.7 Hospit a .3.224227 l .8 2020-08-05 2020-08-05 Documentat Delcano, 1.2.840.1 [id number] 21 [id number] Methodi 00:00:00 00:00:00 ion Romaine 05452.1.[address] Zen 3.430.2.7 Hospit a .3.866636 l .8 2020-08-04 2020-08-04 [facility] Galati, 1.2.840.1 [id number] Methodi 23:59:00 23:59:00 Encounter Segundo S. 54562.1.[address] 3.430.2.7 Hospit a .3.897025 l .8 2020-08-01 2020-08-01 Orders Galati, 1.2.840.1 [id number] Methodi 00:00:00 00:00:00 Only Segundo SShelby 81425.1.[address] 3.430.2.7 Hospit a .3.760322 l .8 2020-07-31 2020-07-31 Travel 1.2.840.1 1.2.876.967 1588 [id number] Methodi 00:00:00 00:00:[address] 3.430.2.7 0.2.7.3.698 Ho spita .3.960132 084.8 l .8 2020-07-31 2020-07-31 Transcribe Parker, 1.2.840.1 [id number] 698 [id number] Methodi 00:00:00 00:00:00 Orders Segundo Bradley 19112.1.[address] 3.430.2.7 Hospit a .3.646571 l .8 2020-05-08 2020-05-16 [facility] Mynor Garcia 1.2.840.1 [id number] Methodi 15:04:00 17:19:00 Encounter Krishna Webb 93950.1.[address] Burns [place] 3.430.2.7 Hospita .3.093077 l .8 2020-05-16 2020-05-16 Documentat Fakody, 1.2.840.1 [id number] Methodi 00:00:00 00:00:00 ion Ilene 46092.1.[address] 3.430.2.7 Hospit a .3.501765 l .8 2020-05-16 2020-05-16 Telephone Mina 1.2.840.1 [id number] [id number] Methodi 00:00:00 00:00:[address] Zen 3.430.2.7 Hospit a .3.118609 l .8 2020-05-08 2020-05-16 [facility] 012 [id number] 00:00:00 00:00:00 DONALD [address] 2020-05-15 2020-05-15 Documentat Delaldoo, 1.2.840.1 [id number] 21 [id number] Methodi 00:00:00 00:00:00 ion Romaine 63452.1.[address] Zen 3.430.2.7 Hospit a .3.650604 l .8 2020-05-12 2020-05-12 Surgery [facility], 1.2.840.1 [id number] 454 [id number] Methodi 20:05:00 21:05:[address] 3.430.2.7 Hospit a .3.547414 l .8 2020-05-12 2020-05-12 Telephone Mina, 1.2.840.1 [id number] 680 [id number] Methodi 00:00:00 00:00:[address] Zen 3.430.2.7 Hospit a .3.350595 l .8 2020-05-12 2020-05-12 Telephone Mina, 1.2.840.1 [id number] 492 [id number] Methodi 00:00:00 00:00:[address] Zen 3.430.2.7 Hospit a .3.142783 l .8 2020-05-12 2020-05-12 Telephone De Oliveira, 1.2.840.1 [id number] 2099 [id number] Methodi 00:00:00 00:00:[address] 3.430.2.7 Hospit a .3.482679 l .8 2020-05-08 2020-05-08 Travel 1.2.840.1 1.2.703.240 1486 [id number] Methodi 00:00:00 00:00:[address] 3.430.2.7 0.2.7.3.698 Ho spita .3.941965 084.8 l .8 2020-03-31 2020-04-14 [facility] 1.2.840.1 10 [id number] Methodi 18:34:00 16:38:00 [facility] Donald Burns 50822.1.[address] Nuria Dennis 3.430.2.7 [facility] Krishna Cornejo .3.969932 l .8 2020-03-31 2020-04-14 Inpatient AZEEM [facility] 064 [id number] 00:00:00 00:00:00 DONALD [address] 2020-01-04 2020-01-04 [place] 1.2.862.964 0043 5431 11:30:05 11:50:05 [facility] 350.1.13.10 Care [place] 4.2.7.2.686 Professio [phone] nal [address] 2019-12-25 2019-12-25 [place] 1.2.684.844 2203 3230 17:09:55 18:06:32 [facility] 350.1.13.10 [facility] [place] 4.2.7.2.686 Professio [id number] nal 044 [address] 2018-05-01 2018-05-01 [id number] [facility] [address] 15:00:00 15:00:00 [facility] ent Clinics Results Test Description Test Time Test Results Result Source Comments Comments Transthoracic 2020-08-21 [facility] Echocardiogram [address] [place] [address] Complete, (w 21:00:00 Contrast, Strain Echocardiography and 3D if needed) Report [address] [place] [address] Pat.Name: SRIKANTH TOMAS Pat.ID: [id number] .Date: 08/30/2020 Refer.MD: DOUG ALONSO MD, SEGUNDO CANALES MDExam Time: 9:52:00 AM Study Type:Routine Echo Height: 70in Weight: 213lb BSA: 2.15 m2 Age: 12 1950,70Y Sex: MALE BP: 90/55 HR: 53 bpm Sonogrphr: YOMI Santos Pat. Stat.:Inpatient Room: D1065 Study Status:Final Echo Event ID:[id number] Order ID: [id number] Reason for Study:pre liver transplantProcedures : 2D Echo, Colorflow Doppler, Portable, Intravenous LumasonContrast, Intravenous Saline ContrastRace: C SUM KATIE: -LV EF is normal.Estimated EF is 65-69%RV systolic function is normal.Delayed contrast appears in the left atrium after 5 cardiac cyclesconsistent with transpulmonary shunting. The shunt is significant. FIND INGS: -LV: LV size is normal. LV EF is normal. Overall wall motion is normal. Estimated EF is 65-69%RV: RV size is normal. RV systolic function is normal.LA: LA volume is severely enlarged.RA: RA size is normal.AO: Aortic root diameter is normal.YOVANY: No pericardial effusion.Cntrst: Delayed contrast appears in the left atrium after 5 cardiac cycles consistent with transpulmonary shunting.AV: Mild thickening and calcification of AV leaflets.MV: Mild mitral annular calcification.PV: No structural PV abnormalities noted.TV: No structural TV abnormalities noted.Other: Estimated PA systolic pressure is 32 mmHg, assuming a mean RAP of 5 mmHg. -MEASUREMENTS:------ 2DParasternal Long [place] Ao An 2 cm LVPWd 0.86 cm Ao Rtd 3 cm Index 1.4 cm/m2 LA Ds 4.3 cm IVSd 1.1 cm RWT 0.32 LVIDd 5.4 cm Index 2.5 cm/m2 LV Mass 201 g (122-174) LVIDs 2.4 cm LVM Index 93 g/m2 LV%fs 56 % LA Sng Plane LA Area 29 cm2 (8.8-23.4) LA Vol 115 ml Index 53 ml/m2 LA LngAx 6.1 cm LVOT For Flow LVOT 2 cm LVOT Area 3.1 cm2 DOPPLERAV For Flow/LIZETTE AV pkVel 261 cm/s (100-170) AV TVI 56 cm AV mnVel 160 cm/s AVpkAcRt 5420 cm/s2 AV pkPG 27 mmHg AV DeRt 747 cm/s2 AV Mean G 13 mmHg AV Area 2.1 cm2 (3-5) AV ET 350 msec AV AC 100 msec (83-118) AV AC/ET 0.29 Aortic Valve AV DI 0.66 LVOT For Flow LVOT TVI 37 cm LVOTpkPG 10 mmHg LVOT SV 116 ml LVOTmnPG 5.1 mmHg LVOTpkVel 158 cm/s LVOT SVi 54 ml/m2 LVOT CI 2.9 l/m/m2 LVOT CO 6.3 l/min LVOT Stroke Vol & Cardiac Out HR 54 bpm Signed 08/30/2020 04:00 PMAndrew Irizarry M.D.Interface, Radiology Results In - 08/30/2020 4:00 PM CDT Echocardiography Report [id number]Name: SRIKANTH TOMAS Pat.ID: [id number] .Date: 08/30/2020 Refer.MD: DOUG ALONSO MD, SEGUNDO CANALES MDExestelle Time: 9:52:00 AM Study Type:Routine Echo Height: 70in Weight: 213lb BSA: 2.15 m2 Age: 12 1950,70Y Sex: MALE BP: 90/55 HR: 53 bpm Sonogrphr: YOMI Santos Pat. Stat.:Inpatient Room: D1065 Study Status:Final Echo Event ID:[id number] Order ID: [id number] Reason for Study:pre liver transplantProcedures : 2D Echo, Colorflow Doppler, Portable, Intravenous LumasonContrast, Intravenous Saline ContrastRace: C SUM KATIE: -LV EF is normal.Estimated EF is 65-69%RV systolic function is normal.Delayed contrast appears in the left atrium after 5 cardiac cyclesconsistent with transpulmonary shunting. The shunt is significant. FIND INGS: -LV: LV size is normal. LV EF is normal. Overall wall motion is normal. Estimated EF is 65-69%RV: RV size is normal. RV systolic function is normal.LA: LA volume is severely enlarged.RA: RA size is normal.AO: Aortic root diameter is normal.YOVANY: No pericardial effusion.Cntrst: Delayed contrast appears in the left atrium after 5 cardiac cycles consistent with transpulmonary shunting.AV: Mild thickening and calcification of AV leaflets.MV: Mild mitral annular calcification.PV: No structural PV abnormalities noted.TV: No structural TV abnormalities noted.Other: Estimated PA systolic pressure is 32 mmHg, assuming a mean RAP of 5 mmHg. -MEASUREMENTS:------ 2DParasternal Long [place] Ao An 2 cm LVPWd 0.86 cm Ao Rtd 3 cm Index 1.4 cm/m2 LA Ds 4.3 cm IVSd 1.1 cm RWT 0.32 LVIDd 5.4 cm Index 2.5 cm/m2 LV Mass 201 g (122-174) LVIDs 2.4 cm LVM Index 93 g/m2 LV%fs 56 % LA Sng Plane LA Area 29 cm2 (8.8-23.4) LA Vol 115 ml Index 53 ml/m2 LA LngAx 6.1 cm LVOT For Flow LVOT 2 cm LVOT Area 3.1 cm2 DOPPLERAV For Flow/LIZETTE AV pkVel 261 cm/s (100-170) AV TVI 56 cm AV mnVel 160 cm/s AVpkAcRt 5420 cm/s2 AV pkPG 27 mmHg AV DeRt 747 cm/s2 AV Mean G 13 mmHg AV Area 2.1 cm2 (3-5) AV ET 350 msec AV AC 100 msec (83-118) AV AC/ET 0.29 Aortic Valve AV DI 0.66 LVOT For Flow LVOT TVI 37 cm LVOTpkPG 10 mmHg LVOT SV 116 ml LVOTmnPG 5.1 mmHg LVOTpkVel 158 cm/s LVOT SVi 54 ml/m2 LVOT CI 2.9 l/m/m2 LVOT CO 6.3 l/min LVOT Stroke Vol & Cardiac Out HR 54 bpm Signed 08/30/2020 04:00 Flavio Irizarry M.D. Prepare RBC, 2 Units 2020-08-30 20:43:00 Test Item Value Reference Range Interpretation Comme nts Product name (test code = 25) Red Blood Cells -1, Leukored Unit number (test code = 3828287) [id number] Product code (test code = 3092) [id number] Dispense status (test code = 24) Transfused Blood expiration date (test code = 302) Blood type code (test code = 308) Blood type (test code = 1314) A POSITIVE Compatibility (test code = 6400) Compatible [facility] Abdominal [id number] 05:02:33EXAMINATION: US ABDOMINAL DOPPLER CLINICAL HISTORY: GI bleed, Portal hypertension, rule out portalvein clot COMPARISON: 08/09/2020 TECHNIQUE: Ortiz scale, color Doppler and spectral waveform analysisof the hepatic vasculature. IMPRESSION: 1. PORTAL VEINS: *Main portal vein: The main portal vein is patent with limited flow. Main portal vein measures 1 cm in diameter. Portal vein velocity is 16.3 cm/sec. *Left Portal Vein: The left portal vein is patent but diminutive.*Right Portal Vein:The right portal vein is not well seen. 2. HEPATIC VEINS: *Right Hepatic Vein: The right hepatic vein is patent.*Middle Hepatic Vein: The middle hepatic vein is patent.*Left Hepatic Vein: The left hepatic vein is patent. 3. HEPATIC ARTERIES: *Right Hepatic Artery: The right hepatic artery is patent.*Left Hepati c Artery: The left hepatic artery is patent. 4. IVC: The inferior vena cava is patent. 5. SMV: The superior mesenteric vein is not well seen. 6. SPLENIC ARTERY/VEINS: *Splenic Artery/Vein at Spleen: The splenic artery/vein at the spleen are patent.*Splenic Artery/Vein at Midline: The splenic artery/vein at the midline are not well seen. Liver is cirrhotic with heterogeneous echotexture. There is small ascites and cholelithiasis. Interface, Radiology Results Incoming - 08/30/2020 12:05 AM CDT EXAMINATION: US ABDOMINAL DOPPLERCLINICAL HISTORY: GI bleed, Portal hypertension, rule out portal vein clotCOMPARISON: 08/09/2020TECHNIQUE: Ortiz scale, color Doppler and spectral waveform analysis of the hepatic vasculature.IMPRESSION:1. PORTAL VEINS: *Main portal vein: The main portal vein is patent with limited flow. Main portal vein measures 1 cm in diameter. Portal vein velocity is 16.3 cm/sec. *Left Portal Vein: The left portal vein is patent but diminutive.*Right Portal Vein:The right portal vein is not well seen.2. HEPATIC VEINS: *Right Hepatic Vein: The right hepatic vein is patent.*Middle Hepatic Vein: The middle hepatic vein ispatent.*Left Hepatic Vein: The left hepatic vein is patent.3. HEPATIC ARTERIES: *Right Hepatic Artery : The right hepatic artery is patent.*Left Hepatic Artery: The left hepatic artery is patent.4. IVC:The inferior vena cava is patent.5. SMV: The superior mesenteric vein is not well seen.6. SPLENIC ARTERY/VEINS: *Splenic Artery/Vein at Spleen: The splenic artery/vein at the spleen are patent.*Splenic Artery/Vein at Midline: The splenic artery/vein at the midline are not well seen.Liver is cirrhotic with heterogeneous echotexture. There is small ascites and cholelithiasis.[facility] 12 [id number] 21:20:43 Test Item Value Reference Range Interpretation Comments Ventricular rate (test code = 253) Atrial rate (test code = 255) OK interval (test code = 266) QRSD interval (test code = 260) QT interval (test code = 264) QTC interval (test code = 265) P axis 1 (test code = 267) QRS axis 1 (test code = 268) T wave axis (test code = 270) EKG impression (test code = 273) [facility] [id number] 09:11:22 Test Item Value Reference Range Interpretation Comments Urine culture (test code = SEE COMMENT [id number]) [facility] RNA [Presence] in Respiratory specimen by MARC with probe [id number] 03:02:24 Test Item Value Reference Range Interpretation Comments SARS-CoV-2 (COVID-19) RNA Not detected Not-Detected [Presence] in Respiratory specimen by MARC with probe detection (test code = 58403-6) Whether patient is employed in a healthcare setting (test code = 82073-0) Whether the patient has symptoms related to condition of interest (test code = 14320-7) Patient was hospitalized because of this condition (test code = 34310-9) Whether the patient was admitted to intensive care unit (ICU) for condition of interest (test code = 40619-1) Whether patient resides in a congregate care setting (test code = 51370-0) Type and [id number] 23:06:00 Test Item Value Reference Range Interpretation Comments ABO grouping (test code = 883-9) A Rh type (test code = 13398-7) POS Antibody screen (gel) (test code = NEG 890-4) [facility] [id number] 22:17:31PateRhoda lazaro MD 09/16/2020 10:55 AMCritical CarePerformed by: Rhoda Baker MDAuthorized by: Rhoda Baker MD Critical care provider statement: Critical care time (minutes): 40 Critical care time was exclusive of: Separately billable procedures and treating other patients and teaching time Critical care was necessary to treat or prevent imminent or life- threatening deterioration of the following conditions: Circulatory failure (GI bleed) Critical care was time spent personally by me on the following activities: Development of treatment plan with patient or surrogate, discussions with consultants, examination of patient, re-evaluation of patient's condition, pulse oximetry, evaluation of patient's response to treatment, discussions with primary provider, ordering and review of laboratory studies, ordering and performing treatments and interventions and obtaining history from patient or surrogate Chepe 'yes' if you are taking over critical carefor this patient from another provider.: no Comments: Critical care time was spent in evaluatingthe patient, reviewing the diagnostic data, discussing with any family present. This patient has a high probability of sudden, clinically significant deterioration, which requires the highest level physician preparedness to intervene urgently. I managed life-threatening and/or end organ supporting interventions that require frequent physician assessment. I devoted my full attention to the direct care of this patient for the period of time of I have indicated. Time spent with family or surrogates isonly included the patient was incapable of providing the necessary information or participating in the medical decision making. Time devoted to any procedures is billed separately and not included in critical care time.[facility] ED Preliminary Interpretation - Not an [id number] 22:17:31PateRhoda lazaro MD 09/16/2020 10:55 [facility] Preliminary Interpretation - Not an OrderPerformed by: Rhoda Baker MDAuthorized by: Rhoda Baker MD ECG reviewedby ED Physician in the absence of a intensive care nurse: yes Rate: ECG rate: 72 ECG rate assessment: normal Rhythm: Rhythm: sinus rhythm ST segments: ST segments: NormalT waves: T waves: non-specific Comments: No STEMIMethodist HospitalParathyroid [id number] 19:22:00 Test Item Value Reference Range Interpretation Comments PTH (test code = 2731-8) 51 pg/mL 14-64 JUAN (test code = JUAN) RAC (test code = RAC) [facility] TEST [id number] 19:22:00 Test Item Value Reference Range Interpretation Comments ABN test refused (test code = 8251-1) JUAN (test code = JUAN) RAC (test code = RAC) [facility] Abdominal Paracentesis [id number] 23:01:27 ProcedureUltrasound-guided paracentesis. Clinical IndicationAscites. AnesthesiaLidocaine 1%. SedationNone. TechniqueWritten informed consent was obtained prior to the procedure. The patient was placed in a supine position, and ultrasound imaging over the abdomen was performed, demonstrating a moderate amount of ascites. The right lower abdomen was sterilely prepared and draped in the routine manner. Lidocaine 1% was used for local anesthetic. Using real-time ultrasound guidance, a 5 [place] Islander catheter was advanced successfully into the peritoneal cavity with return of cloudy yellow ascites. A total of 3000 mL of fluid was removed. The catheter was removed and hemostasis was achieved with manual compression. Ultrasound imaging over the abdomen following completion of the paracentesis demonstratedno significant residual ascites. The patient tolerated the procedure well. ComplicationsNone. Impression: Successful ultrasound-guided paracentesis with removal of 3000 ml of cloudy yellow ascites. [id number] Interface, Radiology Results - 08/09/2020 6:04 PM CDT ProcedureUltrasound-guided paracentesis. Clinical IndicationAscites. AnesthesiaLidocaine 1%. SedationNone. TechniqueWritten informed consent was obtained prior to the procedure. The patient was placed in a supine position, and ultrasound imaging over the abdomen was performed, demonstrating a moderate amount of ascites. The right lower abdomen was sterilely prepared and draped in the routine manner. Lidocaine 1% was used for local anesthetic. Using real-time ultrasound guidance, a 5 [place] catheter was advanced successfully into the peritoneal cavity with return of cloudy yellow ascites. A total of 3000 mL of fluid was removed. The catheter was removed and hemostasis was achieved with manual compression. Ultrasound imaging over the abdomen following completion of the paracentesis demonstrated no significant residual ascites. The patient tolerated the procedure well. ComplicationsNone. Impression: Successful ultrasound-guided paracentesis with removal of 3000 ml of cloudy yellow ascites. [id number] [facility] [id number] 02:25:54 Test Item Value Reference Range Interpretation Comments POC glucose (test code = 16367-0) 174 mg/dL 65-99 H Lab Interpretation (test code = Abnormal 47733-5) [facility] Abdominal [id number] 23:07:12EXAMINATION: US ABDOMINAL LIMITED HISTORY: 70 years old Male. Abdominal swelling ascites suspected, see if enough fluid for paracentesis. COMPARISON: None available. IMPRESSION: Four-quadrant sonographic survey for ascites is performed. There is a small to moderate volume of ascites, greatest in theright upper and right lower quadrants. [id number] Interface, Radiology Results Incoming - 6:10 PM CDT EXAMINATION: US ABDOMINAL LIMITED HISTORY: 70 years old Male. Abdominal swelling ascites suspected, see if enough fluidfor paracentesis.COMPARISON: None available.IMPRESSION: Four-quadrant sonographic survey for ascitesis performed. There is a small to moderate volume of ascites, greatest in the right upper and right lower quadrants.[facility] [id number] [facility] Katie' (MIRZA)2020-08-06 12:24:00 Test Item Value Reference Range Interpretation Comments Otyj-HnJ-C7p Polyspecific (test code = NEG 2585) Taoist MckyswpcSOEX-EhX-4 (COVID-19) RNA [Presence] in Respiratory specimen by MARC with probe [id number] 02:59:47 Test Item Value Reference Range Interpretation Comments SARS-CoV-2 (COVID-19) RNA Not detected Not-Detected [Presence] in Respiratory specimen by MARC with probe detection (test code = 41728-1) Whether patient is employed in a healthcare setting (test code = 98642-6) Whether the patient has symptoms related to condition of interest (test code = 36546-7) Patient was hospitalized because of this condition (test code = 08560-7) Whether the patient was admitted to intensive care unit (ICU) for condition of interest (test code = 16803-3) Whether patient resides in a congregate care setting (test code = 24825-3) XR Chest 1 Vw [id number] 01:55:54EXAMINATION: XR CHEST 1 VW PORTABLE CLINICAL HISTORY: fever COMPARISON: 05/15/2020 IMPRESSION: Heart and mediastinum stable. Bones are osteopenic. Low lung volumes, with mild perihilar interstitial prominence and no definite consolidation noted. [facility] [id number] Interface, Radiology Results Incoming - 08/01/2020 8:59 PM CDT EXAMINATION:XR CHEST 1 VW PORTABLECLINICAL HISTORY: feverCOMPARISON: 05/15/2020IMPRESSION:Heart and mediastinumstable. Bones are osteopenic.Low lung volumes, with mild perihilar interstitial prominence and no definite consolidation noted. [facility] [id number] [facility] - [facility]ine (Right Venipuncture)2020-07-02 13:28:00 Test Item Value Reference Range Interpretation Comments Result (test code = No growth in 5 days 6463-4) [facility] [id number] 13:28:00 Test Item Value Reference Range Interpretation Comments CULTURE (BEAKER) (test No growth in 5 days code = 1095) Hepatic function [id number] 10:13:00 Test Item Value Reference Range Interpretation Comments Protein, Total (test 4.3 See_Comment L [Autom ated code = 2885-2) message] The system which generated this result transmitted reference range : 6.0 - 8.3 gm/dL . The reference range was not used to interpr et this result as normal/abnormal . Albumin (test code = 2.2 g/dL 3.5-5 L 21745-2) Total Bilirubin (test 3.1 mg/dL 0.2-1.2 H code = 1974-2) Bilirubin, Direct 1.3 mg/dL 0.1-0.5 H (test code = 1968-7) Alkaline Phosphatase 102 U/L 40-150 (test code = 6768-6) AST (test code = 38 U/L 5-34 H 1920-8) ALT (test code = 26 U/L 6-55 1742-6) JUAN (test code = JUAN) Crushed Stone Grader ID - DBSpecimen slightly icteric Lab Interpretation Abnormal (test code = 25848-3) [facility]HEP[facility] FUNCTION [id number] 10:13:00 Test Item Value Reference Range Interpretation Comments TOTAL PROTEIN (BEAKER) (test code = 4.3 gm/dL 6.0-8.3 L 770) ALBUMIN (BEAKER) (test code = 1145) 2.2 g/dL 3.5-5.0 L BILIRUBIN TOTAL (BEAKER) (test code 3.1 mg/dL 0.2-1.2 H = 377) BILIRUBIN DIRECT (BEAKER) (test 1.3 mg/dL 0.1-0.5 H code = 706) ALKALINE PHOSPHATASE (BEAKER) (test 102 U/L 40-150 code = 346) AST (SGOT) (BEAKER) (test code = 38 U/L 5-34 H 353) ALT (SGPT) (BEAKER) (test code = 26 U/L 6-55 347) Crushed Stone Grader ID - DBSpecimen slightly ictericBasic metabolic [id number] 05:31:00 Test Item Value Reference Range Interpretation Comments Sodium (test code = 132 meq/L 136-145 L 2951-2) Potassium (test code 4.0 meq/L 3.5-5.1 = 2823-3) Chloride (test code = 103 meq/L 98-107 2075-0) CO2 (test code = 24 meq/L 22-29 2028-9) BUN (test code = 26 mg/dL 7-21 H 3094-0) Creatinine (test code 1.28 mg/dL 0.57-1.25 H = 2160-0) Glucose (test code = 134 mg/dL 70-105 H 2345-7) Calcium (test code = 7.7 mg/dL 8.4-10.2 L 41654-8) EGFR (test code = 56 mL/min/1.73 [place] [address]-9) NOT ACCURATE CREATININE CLEARANCE IN PREDICTING GLOMERULAR FILTRATION RATE . ESTIMATED GFR I S NOT APPLICABLE FOR DIALYSIS PATIENTS. JUAN (test code = JUAN) Crushed Stone Grader ID - DBSpecimen slightly icteric Lab Interpretation Abnormal (test code = 77332-7) [facility] HospitalBASI [facility]OLIC [id number] 05:31:00 Test Item Value Reference Range Interpretation Comments SODIUM (BEAKER) 132 meq/L 136-145 L (test code = 381) POTASSIUM (BEAKER) 4.0 meq/L 3.5-5.1 (test code = 379) CHLORIDE (BEAKER) 103 meq/L 98-107 (test code = 382) CO2 (BEAKER) (test 24 meq/L 22-29 code = 355) BLOOD UREA NITROGEN 26 mg/dL 7-21 H (BEAKER) (test code = 354) CREATININE (BEAKER) 1.28 mg/dL 0.57-1.25 H (test code = 358) GLUCOSE RANDOM 134 mg/dL 70-105 H (JACIAKER) (test code = 652) CALCIUM (JACIAKER) 7.7 mg/dL 8.4-10.2 L (test code = 697) EGFR (BEAKER) (test 56 mL/min/1.73 ESTIMA ALMITA GFR IS code = 1092) sq m NOT ACCURATE CREATININE CLEARANCE IN PREDICTING GLOMERULAR FILTRATION RATE . ESTIMATED GFR I S NOT APPLICABLE FOR DIALYSIS PATIEN TS. Crushed Stone Grader ID - DBSpecimen slightly ictericCBC with platelet count + automated [id number] 05:10:00 Test Item Value Reference Range Interpretation Comments WBC (test code = 6690-2) 10.2 See_Comment [A utomated message] The system [employer] generated this result transmitted ref erence range: 3.5 - 10 .5 K/L. The refe rence range was not u sed to interpret this result as normal/abnor mal. RBC (test code = 789-8) 2.30 See_Comment L [Au tomated message] The system [employer] generated this result transmitted ref erence range: 4.63 - 6 .08 M/L. The refe rence range was not u sed to interpret this result as normal/abnor mal. MCHC (test code = 786-4) 34.4 See_Comment L [A utomated message] The system [employer] generated this result transmitted ref erence range: 32.3 - 3 6.5 GM/DL. The refe rence range was not u sed to interpret this result as normal/abnor mal. Hematocrit (test code = 24.1 % 40.1-51 L 4544-3) MCV (test code = 787-2) 104.8 fL 79-92.2 H MCH (test code = 785-6) 36.1 pg 25.7-32.2 H RDW (test code = 788-0) 15.1 % 11.6-14.4 H Platelets (test code = 58 See_Comment L [Aut omated message] 777-3) The system [employer] generated this result transmitted ref erence range: 150 - 45 0 K/CU MM. The referen ce range was not u sed to interpret this result as normal/abnor mal. MPV (test code = 10.2 fL 9.4-12.4 33651-4) nRBC (test code = 413) 0 See_Comment [Aut omated message] The system [employer] generated this result transmitted ref erence range: 0 - 0 /1 00 WBC. The refere nce range was not u sed to interpret this result as normal/abnor mal. % Neutros (test code = 77 % 429) % Lymphs (test code = 11 % 430) % Monos (test code = 8 % 431) % Eos (test code = 432) 3 % % Baso (test code = 437) 1 % # Neutros (test code = 7.82 See_Comment H [Aut omated message] 670) The system [employer] generated this result transmitted ref erence range: 1.78 - 5 .38 K/L. The refe rence range was not u sed to interpret this result as normal/abnor mal. # Lymphs (test code = 1.13 See_Comment L [Auto mated message] 414) The system [employer] generated this result transmitted ref erence range: 1.32 - 3 .57 K/L. The refe rence range was not u sed to interpret this result as normal/abnor mal. # Monos (test code = 0.78 See_Comment [Autom ated message] 415) The system [employer] generated this result transmitted ref erence range: 0.30 - 0 .82 K/L. The refe rence range was not u sed to interpret this result as normal/abnor mal. # Eos (test code = 416) 0.34 See_Comment [Au tomated message] The system [employer] generated this result transmitted ref erence range: 0.04 - 0 .54 K/L. The refe rence range was not u sed to interpret this result as normal/abnor mal. # Baso (test code = 417) 0.05 See_Comment [A utomated message] The system [employer] generated this result transmitted ref erence range: 0.01 - 0 .08 K/L. The refe rence range was not u sed to interpret this result as normal/abnor mal. Immature 1 % 0-1 Granulocytes-Relative (test code = 2801) Lab Interpretation (test Abnormal code = 25435-7) [facility] W/PLT COUNT & AUTO [id number] 05:10:00 Test Item Value Reference Range Interpretation Comments WHITE BLOOD CELL COUNT (BEAKER) 10.2 K/ L 3.5-10.5 (test code = 775) RED BLOOD CELL COUNT (BEAKER) 2.30 M/ L 4.63-6.08 L (test code = 761) HEMOGLOBIN (BEAKER) (test code = 8.3 GM/DL 13.7-17.5 L 410) HEMATOCRIT (BEAKER) (test code = 24.1 % 40.1-51.0 L 411) MEAN CORPUSCULAR VOLUME (BEAKER) 104.8 fL 79.0-92.2 H (test code = 753) MEAN CORPUSCULAR HEMOGLOBIN 36.1 pg 25.7-32.2 H (BEAKER) (test code = 751) MEAN CORPUSCULAR HEMOGLOBIN CONC 34.4 GM/DL 32.3-36.5 (BEAKER) (test code = 752) RED CELL DISTRIBUTION WIDTH 15.1 % 11.6-14.4 H (BEAKER) (test code = 412) PLATELET COUNT (BEAKER) (test code 58 K/CU MM 150-450 L = 756) MEAN PLATELET VOLUME (BEAKER) 10.2 fL 9.4-12.4 (test code = 754) NUCLEATED RED BLOOD CELLS (BEAKER) 0 /100 WBC 0-0 (test code = 413) NEUTROPHILS RELATIVE PERCENT 77 % (BEAKER) (test code = 429) LYMPHOCYTES RELATIVE PERCENT 11 % (BEAKER) (test code = 430) MONOCYTES RELATIVE PERCENT 8 % (BEAKER) (test code = 431) EOSINOPHILS RELATIVE PERCENT 3 % (BEAKER) (test code = 432) BASOPHILS RELATIVE PERCENT 1 % (BEAKER) (test code = 437) NEUTROPHILS ABSOLUTE COUNT 7.82 K/ L 1.78-5.38 H (BEAKER) (test code = 670) LYMPHOCYTES ABSOLUTE COUNT 1.13 K/ L 1.32-3.57 L (BEAKER) (test code = 414) MONOCYTES ABSOLUTE COUNT (BEAKER) 0.78 K/ L 0.30-0.82 (test code = 415) EOSINOPHILS ABSOLUTE COUNT 0.34 K/ L 0.04-0.54 (BEAKER) (test code = 416) BASOPHILS ABSOLUTE COUNT (BEAKER) 0.05 K/ L 0.01-0.08 (test code = 417) IMMATURE GRANULOCYTES-RELATIVE 1 % 0-1 PERCENT (BEAKER) (test code = 2801) Comprehensive metabolic [id number] 00:14:00 Test Item Value Reference Range Interpretation Comments Protein, Total (test 4.8 See_Comment L [Autom ated code = 2885-2) message] The system which generated this result transmitted reference range : 6.0 - 8.3 gm/dL . The reference range was not used to interpr et this result as normal/abnormal . Albumin (test code = 2.5 g/dL 3.5-5 L 58574-6) Alkaline Phosphatase 114 U/L 40-150 (test code = 6768-6) Total Bilirubin (test 4.2 mg/dL 0.2-1.2 H code = 1975-2) Sodium (test code = 131 meq/L 136-145 L 2951-2) Potassium (test code 4.2 meq/L 3.5-5.1 = 2823-3) Chloride (test code = 102 meq/L 98-107 2075-0) CO2 (test code = 22 meq/L 22-29 2028-9) BUN (test code = 23 mg/dL 7-21 H 3094-0) Creatinine (test code 1.31 mg/dL 0.57-1.25 H = 2160-0) Glucose (test code = 157 mg/dL 70-105 H 2345-7) Calcium (test code = 7.6 mg/dL 8.4-10.2 L 51954-6) AST (test code = 42 U/L 5-34 H 1920-8) ALT (test code = 31 U/L 6-55 1742-6) EGFR (test code = 54 mL/min/1.[place] [address]-8) m NOT ACCURATE CREATININE CLEARANCE IN PREDICTING GLOMERULAR FILTRATION RATE . ESTIMATED GFR I S NOT APPLICABLE FOR DIALYSIS PATIENTS. JUAN (test code = JUAN) Crushed Stone Grader ID - DBSpecimen moderately icteric Lab Interpretation Abnormal (test code = 88584-0) [facility]COM[facility] [id number] 00:14:00 Test Item Value Reference Range Interpretation Comments TOTAL PROTEIN 4.8 gm/dL 6.0-8.3 L (BEAKER) (test code = 770) ALBUMIN (BEAKER) 2.5 g/dL 3.5-5.0 L (test code = 1145) ALKALINE PHOSPHATASE 114 U/L 40-150 (BEAKER) (test code = 346) BILIRUBIN TOTAL 4.2 mg/dL 0.2-1.2 H (BEAKER) (test code = 377) SODIUM (BEAKER) (test 131 meq/L 136-145 L code = 381) POTASSIUM (BEAKER) 4.2 meq/L 3.5-5.1 (test code = 379) CHLORIDE (BEAKER) 102 meq/L 98-107 (test code = 382) CO2 (BEAKER) (test 22 meq/L 22-29 code = 355) BLOOD UREA NITROGEN 23 mg/dL 7-21 H (BEAKER) (test code = 354) CREATININE (BEAKER) 1.31 mg/dL 0.57-1.25 H (test code = 358) GLUCOSE RANDOM 157 mg/dL 70-105 H (BEAKER) (test code = 652) CALCIUM (BEAKER) 7.6 mg/dL 8.4-10.2 L (test code = 697) AST (SGOT) (BEAKER) 42 U/L 5-34 H (test code = 353) ALT (SGPT) (BEAKER) 31 U/L 6-55 (test code = 347) EGFR (BEAKER) (test 54 mL/min/1.73 ESTIMA ALMITA GFR IS code = 1092) sq m NOT ACCURATE CREATININE CLEARANCE IN PREDICTING GLOMERULAR FILTRATION RATE . ESTIMATED GFR I S NOT APPLICABLE FOR DIALYSIS PATIEN TS. Crushed Stone Grader ID - DBSpecimen moderately rqqysepOngxrffnr2752-67-59 00:10:00 Test Item Value Reference Range Interpretation Comments Magnesium (test code = 1.9 mg/dL 1.6-2.6 95482-1) JUAN (test code = JUAN) Crushed Stone Grader ID - DB Lab Interpretation (test Normal code = 50018-1) [facility]UM2021-[facility] 00:10:00 Test Item Value Reference Range Interpretation Comments MAGNESIUM (BEAKER) (test code = 1.9 mg/dL 1.6-2.6 627) Crushed Stone Grader ID - WFJcmoofo7299-58-75 00:03:00 Test Item Value Reference Range Interpretation Comments Ammonia (test code = 60 See_Comment [Autom ated 85475-9) message] The system which generated this result transmit almita reference range : 18 - 72 mol/L . The reference range was not u sed to interpret th is result as normal/abnormal . JUAN (test code = JUAN) Crushed Stone Grader ID - DB Lab Interpretation Normal (test code = 17013-8) [facility]AMMONIA2021-[facility]-07 00:03:00 Test Item Value Reference Range Interpretation Comments AMMONIA (BEAKER) (test code = 348) 60 mol/L 18-72 Crushed Stone Grader ID - [id number] 23:58:00 Test Item Value Reference Range Interpretation Comments PTT (test code = 36.7 See_Comment H [Automated message] 54123-8) The system [employer] h generated this result transmitted ref erence range: 22.5 - 3 6.0 seconds. The reference range was not used to int erpret this result as normal/abnormal . Lab Interpretation (test Abnormal code = 53878-1) [facility] HospitalAPTT2021-[facility] 23:58:00 Test Item Value Reference Range Interpretation Comments PARTIAL THROMBOPLASTIN TIME 36.7 seconds 22.5-36.0 H (BEAKER) (test code = 760) Prothrombin time/[id number] 23:57:00 Test Item Value Reference Interpretation Comments Range Protime (test code = 16.8 See_Comment H [Autom ated 5902-2) message] The system which generated this result transmitted reference range : 11.9 - 14.2 seconds. The reference range was not used to interpret this result as normal/abnormal . INR (test code = 1.42 See_Comment [Automated 8691-6) message] The system which generated this result transmitted reference range : <=5.90. The reference range was not used to interpret this result as normal/abnormal . JUAN (test code = Effective 07/19/2018: JUAN) PT Reference Range ChangeNew: 11.9-14.2 Previous: 11.7-14.7 RECOMMENDED COUMADIN/WARFARIN INR THERAPY RANGESSTANDARD DOSE: 2.0-3.0 Includes: PROPHYLAXIS for venous thrombosis, systemic embolization; TREATMENT for venous thrombosis and/or pulmonary embolus.HIGH RISK: Target INR is 2.5-3.5 for patients wiht mechanical heart valves. Lab Interpretation Abnormal (test code = 80415-9) [facility] HospitalPROTHROMBIN TIME/[id number] 23:57:00 Test Item Value Reference Range Interpretation Comments PROTIME (BEAKER) 16.8 seconds 11.9-14.2 H (test code = 759) INR (BEAKER) (test 1.42 See_Comment [Automat ed message] code = 370) The system [employer] generated this result transmitted ref erence range: <=5.90. The reference range was not used to int erpret this result as normal/abnormal . Effective 07/19/2018: PT Reference Range ChangeNew: 11.9-14.2 Previous: 11.7- 14.7RECOMMENDED COUMADIN/WARFARIN INR THERAPY RANGESSTANDARD DOSE: 2.0-3.0 Includes: PROPHYLAXIS for venous thrombosis, systemic embolization; TREATMENT for venous thrombosis and/or pulmonary embolus.HIGH RISK: Target INR is2.5-3.5 for patients wiht mechanical heart valves.POC-Glucose oszon4285-06-04 21:39:00 Test Item Value Reference Range Interpretation Comments POC-Glucose Meter (test 131 mg/dL 70-110 H : TE STED AT [facility] code = 1538) [address] [facility], [address]: Crushed Stone Grader/Techni domingo ID = [id number] for Darrius Hamilton Lab Interpretation (test Abnormal code = 81088-6) [facility] HospitalPOCT-GLUCOSE [id number] 21:39:00 Test Item Value Reference Range Interpretation Comments POC-GLUCOSE METER 131 mg/dL 70-110 H : TESTED A T [facility] [address] (BEAKER) (test code = [facility], 1538) [address]: Crushed Stone Grader/Techni domingo ID = [id number] for Darrius Harmon C1Q class 1 & 2 [id number] 21:15:13 Test Item Value Reference Range Interpretation Comments Interpretation (test code Unable to analyze = 7479916) due to high background Case number (test code = [id number]) C1Q class 1 & 2 antibody See link below for (test code = 4013728) PDF Lab Report [facility] DallasLow resolution full typing by [id number] 20:49:43 Test Item Value Reference Range Interpretation Comments Interpretation (test code = 9516918) Case number (test code = [id number]) Low resolution full typing See link below for by SSO (test code = 1359) PDF Lab Report [facility] DallasIR Venous [id number] 20:29:30Performing Bryce Avina Anesthesia TypeModerate sedation was administered by the procedure nurse and monitored by the procedure physician for a total lzhg-rq-tulw sedation time of 118 minutes. Lidocaine 1% was also used for local anesthetic. Pre Procedure DiagnosisBleedinggastric varices in the setting of portal hypertension Post Procedure DiagnosisAs above ProcedureCoil- assisted retrograde transvenous obliteration (CARTO) TechniqueWritten informed consent was obtained prior to the procedure. All elements of maximal sterile barrier technique were followed. The patient's right groin was sterilely prepared and draped in the routine manner. Lidocaine 1% was used for local anesthetic. Using real-time ultrasound guidance, a 21-gauge micropuncture needle was used to access the right common femoral vein. A 0.018 inch guidewire was advanced centrally under fluoroscopy. Theneedle was removed, and a micropuncture sheath system [...] fluoroscopy. Using a combination of a 5 Fr ench C2 catheter and a 0.035 inch Glidewire, the left renal vein was accessed. A left renal venogramdemonstrated a patent left renal vein. Next, an aberrant varix was appreciated off of the left renalvein. Venogram did not demonstrate access to the gastric varices.Ultimately, an additional abnormal connection was accessed more medially along the superior aspect of the left renal vein. Contrast injection demonstrated supply to the left phrenic in addition to dilated gastric varices. This vein appeared to correlate with findings on CT. The right common femoral venous access was then upsized to a 10French vascular sheath. Over a wire, the vascular sheath was advanced into the abnormal varix. Next,a 14 mm balloon was partially inflated in the proximal portion of the varix. After inflation, a balloon occlusion antegrade venogram was performed, which demonstrated both prominent phrenic veins in addition to the dilated perigastric varices. This is best seen on series 8 image 302. The balloon was re moved over a wire. Next, a 5 [place] Islander glide catheter was placed proximally within the varix while a 2.8 [place] Islander renegade high flow microcatheter was utilized access the dilated perigastric/gastric veins. Contrast injection confirmed access to the abnormal veins as seen on series 11. Multiple 0.035 inch Kerline detachable coils were placed in the proximal varix. Contrast injection through the microcatheterwas utilized to ensure absence of retrograde flow back into the left renal vein. Once retrograde flow was confirmed to be occluded, sclerotherapy was performed to stasis using 3% sodium tetradecyl sulfate (STS) foam and then subsequent thick Gelfoam slurry. Once stasis was confirmed, the renegade high flow microcatheter was removed. All subsequent wires, catheters, and sheaths were removed and hemostasis was obtained with manual compression. The patient tolerated the procedure well. Radiation DoseKa,r = 118 mGy ComplicationsNone Specimens RemovedNone Estimated Blood LossLess than 10 mL Blood/Blood Products AdministeredNone Grafts/ImplantsAs described in the above report Impression: 1. Balloon assisted antegrade venogram demonstrated dilated perigastric varices emanating from the left renal vein.2. Successful coil assisted retrograde transvenous obliteration (CARTO), a variant of balloon occlusion retrograde transvenous obliteration (BRTO), to stasis of dilated perigastric varices as described above. [facility] [id number] Interface, Radiology Results Incoming - 05/17/2020 3:32 PM CDT Performing RadiologistKesgraciela TariqNonpat Anesthesia TypeModerate sedation was administered by the procedure nurse and monitored by the procedure physician for a total uzpl-ie-ynny sedation time of 118 minutes. Lidocaine 1% was also used for local anesthetic. Pre Procedure DiagnosisBleeding gastric varices in the setting of portal hypertensionPost Procedure DiagnosisAs aboveProcedureCoil-assisted retrograde transvenous obliteration (CARTO)TechniqueWritten informed consent was obtained prior to the procedure. All elements of maximal sterile barrier technique were followed. The patient's right groin was sterilely prepared and draped in the routine manner. Lidocaine 1% was used for local anesthetic. Using real-time [...] micropuncture sheath and into the inferior vena cavaunder fluoroscopy. Using a combination of a 5 [...] to correlate with findings on CT.The right commonfemoral venous access was then upsized to a 10 [place] Islander vascular sheath. Over a wire, the vascular sheath was advanced into the abnormal varix. Next, a 14 mm balloon was partially inflated in the proximal portion of the varix. After inflation, a balloon occlusion antegrade venogram was performed, which demonstrated both prominent phrenic veins in addition to the dilated perigastric varices. This is best seen on series 8 image 302.The balloon was removed over a wire. Next, a 5 [place] Islander glide catheter wasplaced proximally within the varix while a 2.8 [place]er renegade high flow microcatheter was utilized access the dilated perigastric/gastric veins. Contrast injection confirmed access to the abnormal veins as seen on series 11.Multiple 0.035 inch Kerline detachable coils were placed in the proximal varix.Contrast injection through the microcatheter was utilized to ensure absence of retrograde flow back into the left renal vein. Once retrograde flow was confirmed to be occluded, sclerotherapy was performed to stasis using 3% sodium tetradecyl sulfate (STS) foam and then subsequent thick Gelfoam slurry. Once stasis was confirmed, the renegade high flow microcatheter was removed. All subsequent wires, catheters, and sheaths were removed and hemostasis was obtained with manual compression. The patient t olerated the procedure well.Radiation DoseKa,r = 118 mGy ComplicationsNone Specimens RemovedNone Estimated Blood LossLess than 10 mL Blood/Blood Products AdministeredNone Grafts/ImplantsAs described inthe above report Impression: 1. Balloon assisted antegrade venogram demonstrated dilated perigastricvarices emanating from the left renal vein.2. Successful coil assisted retrograde transvenous obliteration (CARTO), a variant of balloon occlusion retrograde transvenous obliteration (BRTO), to stasis of dilated perigastric varices as described above.[facility] [id number] HospitalSpirometry, diffusion, lung volumes, MIPS/[id number] 19:33:19 Test Item Value Reference Range Interpretation Comments [...] = 5547) MIP Pre (test code = See_Comment [Autom ated message] 7835) The system [employer] generated this result transmitted ref erence range: 29.11 - 136.03 cmH2O. The refe rence range was not u sed to interpret this result as normal/abnor mal. MEP Pre (test code = See_Comment [Autom ated message] 5447) The system [employer] generated this result transmitted ref erence range: 83.46 - 180.80 cmH2O. The refe rence range was not u sed to interpret this result as normal/abnor mal. DLCO Pre (test code See_Comment [Automa almita message] = 5423) The system [employer] h generated this result transmitted ref erence range: 18.41 - 34.34 ml/(min*mmHg). The reference range was not used to int erpret this result as normal/abnormal . DL/VA Pre (test code See_Comment [Autom ated message] = 5437) The system [employer] generated this result transmitted ref erence range: 2.77 - 5 .17 ml/(min*mmHg*L) . The reference range was not used to int erpret this result as normal/abnormal . VA SB Pre (test code 4.3 L 5.46-8.19 = 5444) DLCOc Pre (test code See_Comment [Autom ated message] = 5430) The system [employer] generated this result transmitted ref erence range: 18.41 - 34.34 ml/(min*mmHg). The reference range was not used to int erpret this result as normal/abnormal . KCOc SB Pre (test See_Comment [Automate d message] code = 5535) The system [employer] generated this result transmitted ref erence range: 2.77 - 5 .17 ml/(min*mmHg*L) . The reference range was not used to int erpret this result as normal/abnormal . Hb Pre (test code = g(Hb)/dL 5540) R0.5IN Pre (test See_Comment [Automated message] code = 5514) The system [employer] generated this result transmitted ref erence range: [...] 2.21 L 3.19-3.19 5395) sR0.5IN Pre (test cmH2O*s code = 5521) Raw Pre (test code = See_Comment [Autom ated message] 5507) The system [employer] generated this result transmitted ref erence range: 3.06 - 3 .06 cmH2O*s/L. The reference range was not used to int erpret this result as normal/abnormal . sGaw Predicted (test See_Comment [Autom ated message] code = 5528) The system [employer] generated this result transmitted ref erence range: 0.08 - 0 .08 1/(cmH2O*s). Th e reference range was not used to int erpret this result as normal/abnormal . FEV1 Predicted (test code = 5302) FEV1 LLN (test code = 5347) FEV1 % Pre of 94.3 % Predicted (test code = 5308) FVC Predicted (test code = 5307) FVC LLN (test code = 5353) FVC % Pre of 80.7 % Predicted (test code = 5355) FEV1/FVC % Predicted (test code = 5359) FEV1/FVC % LLN (test code = 5360) FEV1/FVC % Pre of 116.7 % Predicted (test code = 5362) FEF 25-75% Predicted (test code = 5546) FEF 25-75% LLN (test code = 5545) FEF 25-75% % Pre of 184 % Predicted (test code = 5548) PEF Predicted (test code = 5310) PEF LLN (test code = 5366) PEF % Pre of 106.2 % Predicted (test code = 5368) VC Predicted (test code = 5372) VC LLN (test code = 5373) VC % Pre of 82.1 % Predicted (test code = 5375) ERV Predicted (test code = 5379) ERV LLN (test code = 5380) ERV % Pre of 135.2 % Predicted (test code = 5382) FRCpl % Predicted (test code = 5386) FRCpl % LLN (test code = 5387) FRCpl % Pre of 92.6 % Predicted (test code = 5389) IC Predicted (test code = 5393) IC LLN (test code = 5394) IC % Pre of 69.4 % Predicted (test code = 5396) RV Predicted (test code = 5400) RV LLN (test code = 5401) RV % Pre of 75.1 % Predicted (test code = 5403) RV % TLC Predicted (test code = 5407) RV % TLC LLN (test code = 5408) RV % TLC % Pre of 85.4 % Predicted (test code = 5410) TLC Predicted (test code = 5414) TLC LLN (test code = 5415) TLC % Pre of 79 % Predicted (test code = 5417) Raw Predicted (test code = 5505) Raw LLN (test code = 5506) Raw % Pre of 52.2 % Predicted (test code = 5508) R0.5IN Predicted (test code = 5512) R0.5IN LLN (test code = 5513) R0.5IN % Pre of 16.6 % Predicted (test code = 5515) sGaw Predicted (test code = 5526) sGaw LLN (test code = 5527) sGaw % Pre of 187.2 % Predicted (test code = 5529) DLCO Predicted (test code = 5421) DLCO LLN (test code = 5422) DLCO % Pre of 44.3 % Predicted (test code = 5424) DLCOc Predicted (test code = 5428) DLCOc LLN (test code = 5429) DLCOc % Pre of 52.2 % Predicted (test code = 5431) DL/VA Predicted (test code = 5435) DL/VA LLN (test code = 5436) DL/VA % Pre of 68.5 % Predicted (test code = 5438) KCOc SB Predicted (test code = 5533) KCOc SB LLN (test code = 5534) KCOc SB % Pre of 80.7 % Predicted (test code = 5536) VA SB Predicted (test code = 5442) VA SB LLN (test code = 5443) VA SB % Pre of 63.1 % Predicted (test code = 5445) MIP Predicted (test code = 5449) MIP LLN (test code = 5450) MIP % Pre of 38.2 % Predicted (test code = 5452) MEP Predicted (test code = 5456) MEP LLN (test code = 5457) MEP % Pre of 53 % Predicted (test code = 5459) MVV Predicted (test code = 5544) MVV LLN (test code = 5543) MVV % Pre of 50.9 % Predicted (test code = 5587) [facility] antigen [id number] 00:23:28 Test Item Value Reference Range Interpretation Comments SAB serum ID (test code [id number] = 5866) SAB serum collection D&T 05/12/2020 04:11 PM (test code = 5867) SAB class I antibody Negative assignment (test code = 5870) SAB cPRA class I (test code = 5868) SAB class II antibody Negative assignment (test code = 5871) SAB cPRA class II (test code = 5869) Case number (test code = [id number]) Single antigen beads See link below for (test code = 4604) PDF [facility] [id number] 18:32:44Examination: XR CHEST 2 VW Clinical History: Liver Transplant Evaluation Comparison: 03/31/2020 Technique: Frontal and lateral views of the chest Impression: Subtle basilar peripheral reticulations raising possibility of mild interstitial edema or trace fibrosis. No acute airspace disease or pleural effusion. Normal heart size and pulmonary vascularity. [id number] Interface, Radiology Results Incoming - 05/15/2020 1:35 PM CDT Examination: XR CHEST 2 VWClinical History: Liver Transplant EvaluationComparison: 03/31/2020Technique: Frontal and lateral views of the chestImpression:Subtle basilar peripheral reticulations raising possibility of mild interstitial edema or trace fibrosis.No acute airspace disease or pleural effusion.Normal heart size and pulmonary vascularity.[id number]vis W [id number] 17:57:35 EXAMINATION: CT ABDOMEN WWO CONTRAST PELVIS W CONTRAST CLINICAL HISTORY: cirrhosis evaluate portal vein COMPARISON: 04/01/2020, 05/12/2020 TECHNIQUE: CT of the abdomen and pelvis with intravenous contrast. Noncontrast images obtained of the abdomen. CT imaging was performed with iterative reconstruction techniques and/or automated exposure control to reduce radiation dose. FINDINGS: LOWER THORAX: There are some stable areas of subpleural scarring within the lung bases. Moderate scattered coronary calcifications. HEPATOBILIARY: A previously discussed punctate focus of air in the hepatic dome peripherally is no longer present. There is no evidence of portal venous air on today's examination. The liver is cirrhotic. There is no focal hepatic lesion identified. There is conventional hepatic arterial anatomy. The portal veins are patent, they are diffusely small. The hepatic veins are suboptimally visualized on this examination. There are some stones within the gallbladder. There is no biliary ductal dilatation. SPLEEN: Enlarged measuring 14.5 cm in length. PANCREAS: There is a 1.3 cm cystic lesion at the junction of the body and tail of the pancreas. There is question of a second cystic lesion in the head measuring 9 mm. There is no pancreatic ductal dilatation. Pancreas is atrophic in the region of the neck and proximal body. ADRENALS: No adrenal nodules. KIDNEYS: No hydronephrosis,stones or solid masses. GI TRACT: The appendix is normal. There is wall thickening within the ascending colon and very terminal ileum. Reidentified is a 1.5 cm lipoma in the hepatic flecture of the colon. There is no evidence of bowel obstruction. PERITONEUM/RETROPERITONEUM: There is some gastrohepatic and roz hepatic adenopathy which was present on prior. This probably reactive to the cirrhosis.Attention on follow-up. There is no retroperitoneal adenopathy. There is a slightly prominent stableright external iliac node measuring 1 cm, also favored to be reactive. Previous ascites has markedlyimproved. There is trace pelvic ascites. No free air. VASCULATURE: There is a very large mesenteric collateral in the right lower quadrant between the SMV and IVC. there is a small re-canalized umbilical vein. There are some additional smaller collaterals in the left upper quadrant with a spontaneous l eft splenorenal shunt. There are some varices in the region of the cardia of the stomach. Mild atherosclerosis of the abdominal aorta which is nonaneurysmal. Retroaortic left renal vein. PELVIC ORGANS/BLADDER: Mild nonspecific bladder wall thickening. BONES AND SOFT TISSUES: Mild anasarca. Degenerative changes in the spine. There is a stable mild compression deformity of the superior endplate of L2. IMPRESSION: 1.Hepatic cirrhosis without suspicious hepatic lesion. 2.Portal hypertension manifested by splenomegaly, trace pelvic ascites and abdominal collaterals as described above. This includes a large mesenteric collateral on the right and some gastric varices. The portal veins are patent, butdiffusely small. 3.There is no evidence of portal venous air on today's examination. 4.Wall thickening within the right colon and very terminal ileum is nonspecific. This may represent portal colopathy/enteropathy. Other colitides are not excluded. Follow-up direct visualization can be performed if not done so recently to exclude any other pathology. 5.1.3 cm cystic lesion within the body/tail of thepancreas. Questionable second cystic lesion within the pancreatic head. 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 1-2 year follow-up MRI with MRCP versus CT scan is recommended for surveillance. 6.Additional findings as above. [id number] Interface, Radiology Results Incoming - 05/13/2020 1:00 PM CDT EXAMINATION: CT ABDOMEN WWO CONTRAST PELVIS W CONTRASTCLINICAL HISTORY: cirrhosis evaluate portal veinCOMPARISON: 04/01/2020, 05/12/2020TE HNIQUE: CT of the abdomen and pelvis with intravenous contrast. Noncontrast images obtained of the abdomen.CT imaging was performed with iterative reconstruction techniques and/or automated exposure control to reduce radiation dose. FINDINGS:LOWER THORAX: There are some stable areas of subpleural scarring within the lung bases. Moderate scattered coronary calcifications.HEPATOBILIARY: A previouslydiscussed punctate focus of air in the hepatic dome peripherally is no longer present. There is no evidence of portal venous air on today's examination.The liver is cirrhotic. There is no focal hepaticlesion identified. There is conventional hepatic arterial anatomy. The portal veins are patent, theyare diffusely small. The hepatic veins are suboptimally [...] There is no pancreatic ductal dilatation. Pancreas is atrophic in the region of the neck and proximal body.ADRENALS: No adrenal nodules.KIDNEYS: No hydronephrosis, stones or solid masses.GI TRACT: The appendix is normal. There is wall thickening within the ascending colon and very terminal ileum. Reidentified is a 1.5 cm lipoma in the hepatic flecture of the colon. There is no evidence of bowel obstruction.PERITONEUM/RETROPERITONEUM: There is some gastrohepatic and roz hepatic adenopathy which was present on prior. This probably reactive to the cirrhosis. Attention on follow-up. There is no retroperitoneal adenopathy. There is a slightly prominent stable right external iliac node measuring 1 cm, also favored to be reactive. Previous ascites has markedly improved. There is trace pelvic ascites. No free air.VASCULATURE: There is a very large mesenteric collateral in the right lower quadrant between the SMV and IVC. there is a small re-canalized umbilical vein. There are some additional smaller collaterals inthe left upper quadrant with a spontaneous left splenorenal shunt. There are some varices in the region of the cardia of the stomach.Mild atherosclerosis of the abdominal aorta which is nonaneurysmal. Retroaortic left renal vein.PELVIC ORGANS/BLADDER: Mild nonspecific bladder wall thickening.BONES AND SOFT TISSUES: Mild anasarca. Degenerative changes in the spine. There is a stable mild compressiondeformity of the superior endplate of L2.IMPRESSION:1.Hepatic cirrhosis without suspicious hepatic lesion.2.Portal hypertension manifested by splenomegaly, trace pelvic ascites and abdominal collaterals as described above. This includes a large mesenteric collateral on the right and some gastric varice s. The portal veins are patent, but diffusely small.3.There is no evidence of portal venous air on today's examination.4.Wall thickening within the right colon and very terminal ileum is nonspecific. This may represent portal colopathy/enteropathy. Other colitides are not excluded. Follow-up direct vis ualization can be performed if not done so recently to exclude any other pathology.5.1.3 cm cystic lesion within the body/tail of the pancreas. Questionable second cystic lesion within the pancreatic head. 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 1-2 year follow-up MRI with MRCP versus CT scan is recommended for surveillance.6.Additional findings as above.[id number] transplant [id number] 21:13:41 Test Item Value Reference Range Interpretation Comments HLA transplant evaluation See link below for (test code = 18554-8) PDF Lab Report Case number (test code = [id number] Ortiz carotid [id number] 20:42:00 Vascular Ultrasound Laboratory Carotid Artery Duplex Report [id number] [facility], [facility] [address], [place] [address] For quality control inspector heading purposes, the categorization of the degree of the stenosis of this exam is based on criteria described in the IAC carotid stenosis grading white paper( www.intersocietal.org/Vascular) and Yaima Lundberg., Otilio Bhagat, et al. Carotid artery stenosis: ortiz-scale and Doppler US diagnosis--Society of Radiologists in Ultrasound Consensus Conference. Radiology. 2003 Nov; 229(2):340-6. Pat.Name: SRIKANTH TOMAS Pat.ID: [id number] St.Date: 05/12/2020 Refer.MD: SAMM WEBB MDExestelle Time: 2:21:00 PM Study Type:Carotid Height: 70in Weight: 224lb BSA: 2.19 m2 Age: 12 1950,70Y Sex: MALE Sonogrphr: Tim Camarillo RVT Pat. Stat.:Inpatient Room: [address] Vol: , CPT - 4: 38615 Echo Event ID:[id number] Order ID: [id number] Reason for Study:Pre-operative forl liver transplant. History ofcirrhosis of liver.Procedures: Colorflow, Grayscale/2D, Pulsed wave DopplerRace: D SUMMARY: PHYSICAL ASSESSMENT Blood Pulses Carotid Pressure Carotid Temporal BruitRight IV + + 0Left 113/59 + + 0CAROTID ARTERY SCANRIGHT: There is smooth intimal lining seen in the common carotidartery. There is hard and calcified plaque seen in the bulb extendinginto proximal internal and external carotid artery. Colorflow andDoppler signals are present. There is antegrade flow seen in thevertebral artery. LEFT: There is smooth intimal lining seen in the common carotidartery. There is hard and calcified plaque seen in the bulb extendinginto proximal internal carotid a rtery. The external carotid artery isclear. Colorflow and Doppler signals are present. There is antegradeflow seen in the vertebral artery. Elevated velocity is seen at thesubclavian artery. PRELIMINARY FINDINGS1. <50% stenosis of bulb and internal carotid artery, bilaterally.2. <50% stenosis of right external carotid artery.3. Antegrade flow seen in the vertebral artery, bilaterally. 4. Elevated velocity is seen at the left subclavian artery. PHYSICIAN INTERPRETATION Bilateral carotid duplex examination demonstrated atheroscleroticplaques in the bulbs. Less than 50% stenosis in the bulb and internal carotid artery,bilaterally.Both vertebral arteries are antegrade.>50% left subclavianartery stenosis. FINDINGS: Carotid Findings: Right Left Verteb.Flw [...] ICA Dist ICA Dist PSV 108 cm/s ICA Dist EDV 38.1cm/sRight ICA Mid ICA Mid PSV 108 cm/s ICA Mid EDV 31.7 cm/sRight ICA Prox ICAProx PSV 108 cm/s ICA Prox EDV 31.8 cm/sRight Vertebral Vertebral PSV 58.9 cm/s Vertebral EDV 12.1 cm/sLeft CCA Dist CCA Dist PSV 129 cm/s CCA Dist EDV 26.8 cm/sLeft CCA Mid CCA Mid PSV 114 cm/s CCA Mid EDV 25.2 cm/sLeft CCA Prox CCA Prox PSV 104 cm/s CCA Prox EDV 20.4 cm/sLeft ECA Prox ECA Prox PSV 145 cm/s ECA Prox EDV 24.8 cm/sLeft ICA Dist ICA Dist PSV 97.8 cm/s ICA Dist EDV 30.5 cm/sLeft ICA Mid ICA Mid PSV 110 cm/s ICA Mid EDV 34.7 cm/sLeft ICA Prox ICA Prox PSV 123 cm/s ICA Prox EDV 32.7 cm/sLeft Vertebral Vertebral PSV 64.2 cm/s Vertebral EDV 17.1 cm/sRight SCA Prox SCA Prox PSV 181 cm/s Left SCA ProxSCA Prox PSV 314 cm/s Right ICA/CCA Ratio ICA/CCA PSV 0.923 Left ICA/CCA Ratio ICA/CCA PSV 1.08 Signed 05/12/2020 03:42 PMEsvin Manuel MD, RPVIInterface, Radiology Results In - 05/12/2020 3:42 PM CDT Vascular Ultrasound Laboratory Carotid Artery Duplex Report [id number] [place] [address] For quality control inspector heading purposes, the categorization of the degreeof the stenosis of this exam is based on criteria described in the IAC carotid stenosis grading white paper( www.intersocietal.org/Vascular) and Toño, E.Lela., Olayinka, C.B., et al. Carotid artery stenosis: ortiz-scale and Doppler US diagnosis--Society of Radiologists in Ultrasound Consensus Conference. Radiology. 2003 Nov; 229(2):340-6. Pat.Name: SRIKANTH TOMAS Pat.ID: [id number] .Date: 05/12/2020 Refer.MD: SAMM WEBB MDExestelle Time: 2:21:00 PM Study Type:Carotid Height: 70in Weight: 224lb BSA: 2.19 m2 Age: 12 1950,70Y Sex: MALE Sonogrphr: Tim Camarillo RVT Pat. Stat.:Inpatient Room: [address] Tape Vol: , [facility] - 4: [address] Echo Event ID:[id number] Order ID: [id number] Reason for Study:Pre-operative forl liver transplant. History ofcirrhosisof liver.Procedures: Colorflow, Grayscale/2D, Pulsed wave DopplerRace: D - SUMMARY: P HYSICAL ASSESSMENTBlood Pulses Carotid Pressure Carotid Temporal BruitRight IV ++ 0Left 113/59 + + 0CAROTID ARTERY SCANRIGHT: There is smooth intimallining seen in the common carotidartery. There is hard and calcified plaque seen in the bulb extendinginto proximal internal and external carotid artery. Colorflow andDoppler signals are present. Thereis antegrade flow seen in thevertebral artery. LEFT: [...] of bulb and internal carotid artery, bilaterally.2. <50%stenosis of right external carotid artery.3. Antegrade flow seen in the vertebral artery, bilaterally. 4. Elevated velocity is seen at the left subclavian artery. PHYSICIAN INTERPRETATION Bilateral carotid duplex examination demonstrated atheroscleroticplaques in the bulbs. Less than 50% stenosis inthe bulb and internal carotid artery,bilaterally.Both vertebral arteries [...] ICA Dist ICA Dist PSV 108 cm/s ICA Dist EDV 38.1 cm/sRight ICA Mid ICA Mid PSV 108 cm/s ICA Mid EDV 31.7 cm/sRight ICA Prox ICA Prox PSV 108 cm/s ICA Prox EDV 31.8 cm/sRight Vertebral Vertebral PSV 58.9 cm/s Vertebral EDV 12.1 cm/sLeft CCA Dist CCA Dist PSV 129 cm/s CCA Dist EDV 26.8 cm/sLeft CCA Mid CCA Mid PSV 114 cm/s CCA Mid EDV 25.2 cm/sLeft CCA Prox CCA Prox PSV 104 cm/s CCA Prox EDV 20.4 cm/sLeft ECA Prox ECA Prox ADX015 cm/s ECA Prox EDV 24.8 cm/sLeft ICA Dist ICA Dist PSV 97.8 cm/s ICA Dist EDV 30.5 cm/sLeft ICA Mid ICA Mid PSV 110 cm/s ICA Mid EDV 34.7 cm/sLeft ICA Prox ICA Prox PSV 123 cm/s ICA Prox EDV 32.7 cm/sLeft Vertebral Vertebral PSV64.2 cm/s Vertebral EDV 17.1 cm/sRight SCA Prox SCA Prox PSV 181 cm/s Left SCA Prox SCA Prox PSV 314 cm/s Right ICA/CCA Ratio ICA/CCA PSV 0.923 Left ICA/CCA Ratio ICA/CCA PSV 1.08 Signed 05/12/2020 03:42 Qamar Manuel MD, [facility] Chest Wo [id number] 19:14:10Addendum by Otto Person MD on 05/13/2020 7:57 [...] 05/12/2020 at 2:34 PM. She verbalized understanding. EXAMINATION: CT CHEST WO CONTRAST CLINICAL HISTORY: Liver Transplant Evaluation TECHNIQUE: Axial images of the chest were obtained without intravenous contrast. The lack of intravenous contrast reduces the sensitivity of the exam and evaluating vasculature. CT imaging was performed with iterative reconstruction technique and/or automated exposure control to reduce radiation dose. COMPARISON: 04/01/2020 FINDINGS: Lungs and airways: Mild stable subpleural scarring within the lung bases. There is no consolidation, suspicious nodule or central airway abnormality. Pleura: No pleural effusion or pneumothorax. Mediastinum and lymph nodes: A few upper limits of normal mediastinal lymph nodes are likely reactive and can be reevaluated on follow-up. Calcified subcarinal lymph node from previous granulomatous disease. Cardiovascular: Ascending thoracic aorta is mildly aneurysmal measuring 4 cm.It tapers in the arch. Mild calcifications in the arch. Main pulmonary artery is normal in caliber. Moderate coronary calcifications. Mild cardiac enlargement. Upper abdomen: The liver is cirrhotic. There are [...] lesion in the body/tail region of the pancreas. Musculoskeletal: Mild anasarca. 1.2 cm area of nodularity in the upper inner quadrant of the left breast. Degenerative changes in the spine and shoulders. IMPRESSION: 1.Questionable small focus of portal venous air in the right hepatic dome. CT scan of the abdomen and pelvis with contrast is recommended for further evaluation and to exclude a component of bowel ischemia/pneumatosis. Correlation with lactic acid can also be performed. 2.1.8 cm fluid density lesion in the region of the pancreatic body and tail may represent cystic pancreatic neoplasm such as a sidebranch IPMN. It can be further characterized at the time of the contrast enhanced CT scan of the abdomen and pelvis. 3.No acute consolidation, effusion or suspicious lung nodule. 4.1.2 cm area of nodularity in the upper inner quadrant of the left breast is favored to represent nodular fibroglandular tissue. Recommend follow- up breast ultrasoundfor further characterization and to exclude other pathology. 5.Hepatic cirrhosis 6.Additional findings as above. 7.Callback was performed to the office of Dr. Canales 05/12/2020 at 12:55 PM and 2:10 PM. My callback number was provided to discuss these findings. [facility]-WPHYDPKHm Interface, Radiology Results Incoming - 05/12/2020 2:17 PM CDT EXAMINATION: CT CHEST WO CONTRASTCLINICAL HISTORY: Liver Transplant EvaluationTECHNIQUE: Axial images of the chest were obtained without intravenous contrast. The lack of intravenous contrast reduces the s ensitivity of the exam and evaluating vasculature. CT imaging was performed with iterative reconstruction technique and/or automated exposure control to reduce radiation dose.COMPARISON: 04/01/2020FINDINGS:Lungs and airways: Mild stable subpleural scarring within the lung bases. There is no consolidation, suspicious nodule or central airway abnormality. Pleura: No pleural effusion or pneumothorax.Mediastinum and lymph nodes: A few upper limits of normal mediastinal lymph nodes are likely reactive andcan be reevaluated on follow-up. Calcified subcarinal lymph node from previous granulomatous disease. Cardiovascular: Ascending thoracic aorta is mildly aneurysmal measuring 4 cm. It tapers in the arch. Mild calcifications in the arch. Main pulmonary artery is normal in caliber. Moderate coronary calcifications. Mild cardiac enlargement.Upper abdomen: The liver is cirrhotic. There are some upper abdo fer collaterals. There is suggestion of very minimal [...] the body/tail region of the pancreas.Musculoskeletal: Mild anasarca.1.2 cm area of nodularity in the upper inner quadrant of the left breast. Degenerative changes in the spine and shoulders.IMPRESSION:1.Questionable small focus of portal venous air in the right hepaticdome. CT scan of the abdomen and pelvis with contrast is recommended for further evaluation and to exclude a component of bowel ischemia/pneumatosis. Correlation with lactic acid can also be performed.2.1.8 cm fluid density lesion in the region of the pancreatic body and tail may represent cystic pancreatic neoplasm such as a sidebranch IPMN. It can be further characterized at the time of the contrast enhanced CT scan of the abdomen and pelvis.3.No acute consolidation, effusion or suspicious lung nod ule.4.1.2 cm area of nodularity in the upper inner quadrant of the left breast is favored to represent nodular fibroglandular tissue. Recommend follow-up breast ultrasound for further characterization and to exclude other pathology.5.Hepatic cirrhosis6.Additional findings as above.7.Callback was performed to the office of Dr. Canales 05/12/2020 at 12:55 PM and 2:10 PM. My callback number was provided to discuss these findings.[facility] 00:32:36EXAMINATION: US HEPATIC HISTORY: 70 years old Male. Liver cirrhosis. COMPARISON: CT abdomen pelvis 04/01/2020FINDINGS: Liver: Heterogeneous in echogenicity and coarsened in echotexture with nodular contour. Measures 13.8 cm in long axis.Bile ducts: Common duct is normal and measures 4.7 mm. No intrahepatic ductal dilatation. Gallbladder: Normal in size. Wall thickness is 3.3 mm. Contains cholelithiasis. No pericholecystic fluid. Sonographic Castillo's sign is not reported.Vasculature: Appropriate flow is visualized in the portal veins. IMPRESSION: 1. Nodular, cirrhotic liver.2. Cholelithiasis.1D2RAD_PS02 Interface, Radiology Results Incoming 05/08/2020 7:35 PM CDTFormatting of this notemight be different from the original.EXAMINATION: US HEPATIC HISTORY: 70 years old Male. Liver cirrho sis.COMPARISON: CT abdomen pelvis 04/01/2020FINDINGS: Liver: Heterogeneous in [...] veins. IMPRESSION: 1. Nodular, cirrhotic liver.2. Cholelithiasis.[id number]_PS02 [facility] RNA [Presence] in Respiratory specimen by MARC with probe [id number] 23:01:52 Test Item Value Reference Range Interpretation Comments SARS-CoV-2 (COVID-19) RNA Not detected Not-Detected [Presence] in Respiratory specimen by MARC with probe detection (test code = 53094-0) XR [id number] 15:25:18EXAMINATION: XR PANOREX CLINICAL HISTORY: missing teeth rule out infection in setting of hepatic encephalopathy COMPARISON: None IMPRESSION: A single Panorex is provided. There are multiple missingteeth and multiple dental restorations. No worrisome periapical lucency is identified. [facility]-[id number] Interface, Radiology Results Incoming - 04/13/2020 9:28 AM CST EXAMINATION: XR PANOREXCLINICAL HISTORY: missing teeth rule out infection in setting of hepatic encephalopathyCOMPARISON: NoneIMPRESSION:A single Panorex is provided.There are multiple missing teeth and multiple dental restorations.No worrisome periapical lucency is identified.[facility]-[id number] HospitalXR Abdomen 1 Vw [id number] 20:24:12EXAM: XR ABDOMEN 1 VW PORTABLE CLINICAL: Nausea vomiting, rule out ileus or constipation COMPARISON: None. IMPRESSION: 1.Nonspecific bowel gas pattern without radiographic evidence of obstruction.2.Mild degenerative changes in the spine. [facility]-[id number] Interface, Radiology Results Incoming - 04/10/2020 2:27 PM CST EXAM: XR ABDOMEN 1VW PORTABLECLINICAL: Nausea vomiting, rule out ileus or constipationCOMPARISON: None.IMPRESSION: 1.Nonspecific bowel gas pattern without radiographic evidence of obstruction.2.Mild degenerative changes in the spine.[facility]-[id number] HospitalTransthoracic Echocardiogram Complete, (w Contrast, Strain and 3D if needed)2020-04-03 21:24:00 Echocardiography Report [id number]Name: ANKIT TOMAS Pat.ID: [id number] .Date: 04/02/2020 Refer.MD: NURIA DENNIS MD Exam Time: 9:19:00 PM Study Type:Routine Echo Height: 70in Weight: 320lb BSA: 2.55 m2 Age: 12 1950,70Y Sex: MALE BP: 123/56 HR: 81 bpm Sonogrphr: YOMI Montoya /Luz Wells. Stat.:Inpatient Room: [place] [address] Study Status:Final Echo Event ID:[id number] Order ID: [id number] Reason for Study:fluid overload rule out cardiac etiology, cardiacmurmurProcedures: 2D Echo, Colorflow Doppler, Strain, Portable, IntravenousLumason ContrastRace: D SUMMARY: LV size is normal.Biplane LV EF is 68%. FINDINGS:-- LV: LV size is normal. Biplane LV ejection fraction= 68% LV EF is normal. Overall wall motion is normal.RV: RV size is normal. RV free wall strainis normal at -27.8%. RV systolic function is normal.LA: LA volume is moderately enlarged. LA reservior strain is normal at 43.9%.RA: RA size is normal.AO: Aortic root diameter is normal.YOVANY: No pericardial effusion.AV: Mild thickening and calcification ofAV leaflets.MV: Mild mitral annular calcification.PV: Pulmonic valve not well seen.TV: No structural TV abnormalities noted.Other: Insufficient TR jet to estimate PA systolic pressu re. MEASUREMENTS: -------- 2DParasternal Long [place] Ao An 2 cm LVPWd 1cm Ao Rtd 3.3 cm Index 1.3 cm/m2 LA Ds 4.5 cmIVSd 1 cm RWT 0.4 LVIDd 5.5 cm Index 2.1 cm/m2 LV Mass 211.3 g (122-174) LVIDs 3.2 cmLVM Index 82.9 g/m2 LV%fs 41.6 % LVOT 2 cm LV EF Biplane LVEDV 146 ml (65-193) Index 57.2 ml/m2 LV CI 3.1 l/m/m2 LVESV 46.7 ml Index 18.3 ml/m2 LV SV 99.3 ml LV EF 68 % (63- 77) HR 81 bpm LV CO 8 l/min LA Sng Plane LA Area 28.4 cm2 (8.8-23.4) LA Vol 111.1 ml Index 43.6 ml/m2 LA LngAx 5.9 cm RA Sng Plane RA Vol 27 ml Index 10.6 ml/m2RA LngAx 5.6 cm RA Area 13.5 cm2 (8.3- 19.5)LVOT LVOT Area 3.2 cm2 DOPPLERAV For Flow/LIZETTE AV pkVel 188.7 cm/s (100-170) AV AC/ET 0.2 AV mnVel 153.3 cm/s AV TVI 36.5 cm AV pkPG 14.2 m mHg AVpkAcRt 6393.3 cm/s2 AV Mean G 10.5 [...] cm/s Signed 04/03/2020 03:24 PMSherif Chuckie Ron M.D.Interface, Radiology Results In - 04/03/2020 3:25 PM CST Echocardiography Report [id number]Name: SRIKANTH TOMAS [facility].ID: [id number] .Date: 04/02/2020.MD: NURIA DENNIS MD Exam Time: 9:19:00 PM Study Type:Routine Echo Height: 70in Weight: 320lb BSA: 2.55 m2 Age: 12 1950,70Y Sex: MALE BP: 123/56 HR: 81 bpm Sonogrphr: YOMI Montoya /Luz Wells. Stat.:Inpatient Room: [place] [address] Study Status:Final Echo Event ID:[id number] Order ID: [id number] Reason for Study:fluid overload rule out cardiac etiology, cardiacmurmurProcedures: 2D Echo, Colorflow Doppler, Strain, Portable, IntravenousLumason ContrastRace: D SUMMARY: LV size is normal.Biplane LV EF is 68%. FINDINGS: LV: LV size is normal. Biplane LV [...] estimate PA systolic pressure. MEASUREMENTS: 2DParasternal Long [place] Ao An 2 cm LVPWd 1 cm [...] SV 99.3 ml LV EF 68 % (63- 77) HR 81 bpm LV CO 8 l/min LA Sng Plane LA Area 28.4 cm2 (8.8-23.4) LA Vol 111.1 ml Index 43.6 ml/m2 LA LngAx 5.9 cm RA Sng Plane RA Vol 27 ml Index10.6 ml/m2 RA LngAx 5.6 cm RA Area 13.5 cm2 (8.3-19.5)LVOT LVOT Area 3.2 cm2 DOPPLERAV For Flow/LIZETTE AV pkVel 188.7 cm/s (100-170) AV AC/ET 0.2 AV mnVel 153.3 cm/s AV TVI 36.5 cmAV pkPG 14.2 mmHg AVpkAcRt 6393.3 cm/s2 AV Mean G 10.5 mmHg AVDeRt 791.4 cm/s2 AV ET 238 msec AV AC 57 msec (83-118)Aortic Valve AV DI 0.9 AV Area 2.8 cm2 (3-5)LVOT For Flow LVOT TVI 32.5 cm LVOTpkPG 10.2 mmHg LVOTpkVel 159.6 cm/s LVOTmnPG 6. 3 mmHgLVOT LVOT SV 103.5 ml LVOT CO 8.4 l/min SVi 40.6 ml/m2 LVOT CI 3.3 l/m/m2LVOT Stroke Vol & Cardiac Out HR 81 bpm Mitral Valve MV pkE 117.5 cm/s (60-130) MV pkA 105.2 cm/s Signed 04/03/2020 03:24 PMShermedardo Ron M.D.[facility] Abdomen [id number] 07:13:36EXAM: US ABDOMEN COMPLETE CLINICAL DATA: distention COMPARISON: CT abdomen/pelvis 04/01/2020 FINDINGS: LIVER: The liver has a nodular contour with coarsened echotexture, consistent with cirrhosis. Nofocal hepatic lesion is identified. MPV: Doppler evaluation of the portal vein demonstrates normal hepatopetal flow. 0.9 cm. GALLBLADDER: The gallbladder contains multiple stones. No gallbladder wall thickening is identified. CBD: 5.4 mm. PANCREAS: The visualized portions of the pancreas are within normal limits. SPLEEN: The spleen is homogeneous and not enlarged measuring 12.0 cm RIGHT KIDNEY: The right kidney is normal in size and echogenicity. There is no evidence of mass, calculi, or hydronephrosis. The right kidney measures 11.3 X 5.6 X 5.8 cm. LEFT KIDNEY: The left kidney is normal in size and echogenicity. There is no evidence of mass, calculi, or hydronephrosis. The left kidney measures 12.3 X 6.7 X 5.0 cm. AORTA: The visualized upper abdominal aorta demonstrates no evidence of ectasia or aneurysm. IVC: The visualized portions of the inferior vena cava are unremarkable. ASCITES: Moderate volume ascites is noted. PLEURAL EFFUSION: There are no pleural effusions. IMPRESSION: Cirrhotic liver morphology with moderate volume ascites. Cholelithiasis without sonographic evidence of cholecystitis. 1D2RAD_PS08Hm Interface, Radiology Results 04/01/2020 1:16 AM CST [...] moderate volume ascites.Cholelithiasis without sonographic evidence of cholecystitis.1D2RAD_PS08[facility] 2020-04-01 07:02:13Examination: CT ABDOMEN PELVIS WO CONTRAST Clinical History: abd distention Comparison: None. Findings:CT scans are performed using radiation dose reduction techniques. Technical factors are evaluated and adjusted to ensure appropriate moderation of exposure. Automated dose management technology isapplied to adjust radiation exposure while achieving a diagnostic quality image. CT imaging was performed with iterative reconstruction techniques and/or automated exposure control to reduce radiation dose. CT scan of the abdomen and pelvis was performed without intravenous contrast. The liver is nodular in contour and small in size consistent with cirrhosis. Spleen, pancreas, and adrenal glands are unremarkable. Gallbladder shows gallstones but no gallbladder wall thickening. The kidneys are withinnormal limits without hydronephrosis or urinary calculus. Moderate ascites is seen throughout the abd omen and pelvis. This limits evaluation for bowel wall thickening. The appendix is not visualized. No fat stranding is seen although is limited by the ascites. No free air is seen. Diffuse subcutaneousedema is noted. Right inguinal hernia is noted which contains ascites. The visualized lung bases areclear. The visualized bony structures show no acute abnormality. IMPRESSION:1. Hepatic cirrhosis with ascites and diffuse subcutaneous edema.2. Cholelithiasis without CT evidence for cholecystitis.3. Right inguinal hernia containing ascites. 1D2RAD_PS01Hm Interface, Radiology Results Incoming - 04/01/2020 1:05 [...] to reduce radiation dose.CT scan of the abdomenand pelvis was performed without intravenous contrast.The liver is nodular [...] evidence for cholecystitis.3. Right inguinal hernia containing ascites.1D2RAD_PS01[facility] HealthYiyhebfoSZEU-GlI-3 (COVID-19) RNA [Presence] in Respiratory specimen by MARC with probe [id number] 04:32:02 Test Item Value Reference Range Interpretation Comments SARS-CoV-2 (COVID-19) RNA Not detected Not-Detected [Presence] in Respiratory specimen by MARC with probe detection (test code = 42828-7) Us duplex venous lower [id number] 03:27:00 Vascular Ultrasound Laboratory Lower Extremity Venous Report [id number]Name: SRIKANTH TOMAS Pat.ID: [id number] .Date: 03/31/2020 Refer.MD: PHYSICIAN, EMERGENCY, MDExam Time: 8:17:00 PM Study Type:LE Venous Age: 12 1950,70Y Sex: MALE Sonogrphr: BREA Santiago RCS Pat. Stat.:Inpatient Room: [facility] ED E24 Tape Vol: SHANIA, CPT - 4: 48657 Echo Event ID:[id number] Order ID: [id number] Reason for Study:Leg swelling , DVT suspected.Procedures: [...] venous thrombosis of the visualized veins,bilaterally.2. Technically difficultstudy due to leg swelling, bilaterally.*Preliminary result reported to KATIANA Gaston 2100 on 03/31/20.PHYSICIAN INTERPRETATION: Venous examination of the both lower extremities demonstrated noevidence of venous thrombosis in the visualized veins. Normalcompressibility and augmentation of all veins visualized. FINDINGS: MEASUREMENTS: DOPPLERGeneral Anatomy General Anatomy 0.527 s Signed 03/31/2020 09:27 PMDahliasolt Kaleb MD, RPVIInterce, Radiology Results In - 03/31/2020 9:28 PM CST Vascular Ultra sound Laboratory Lower Extremity Venous Report [id number] [place] [address] Pat.Name: SRIKANTH TOMAS Pat.ID: [id number] .Date: 03/31/2020 Refer.MD: PHYSICIAN, EMERGENCY, Exam Time: 8:17:00 PM Study Type:LE Venous Age: 12 1950,70YSex: MALE Sonogrphr: BREA Santiago, YOMI Pat. Stat.:Inpatient Room: [facility] ED E24 Tape Vol: SHANIA, CPT - 4: 80153 Echo Event ID:[id number] Order ID: [id number] Reason for Study:Leg swelling , DVT suspected.Procedures: Colorflow, Grayscale/2D, Pulsed wave DopplerRace: D SUMMARY: DUPLEXSCAN OBSERVATIONS Deep Veins Superficial Veins Right Left [...] echogenicmaterial noted within the lumen of the visualizedveins. Color flowand Doppler signals are normal.LEFT: There is normal compressibility with no ag dence ofechogenic material noted within the lumen of [...] and augmentation of all veins visualized. FINDINGS: MEASUREMENTS:-------- DOPPLERGeneral Anatomy General Anatomy 0.527 s Signed 03/31/2020 09:27 Qamar Manuel MD, [facility]
[2020-09-26 12:07] LABS: Urine Blood Negative (Negative); Urine Glucose Negative (Negative); Urine Protein Negative (Negative)
--- NOTE | 2020-09-26 14:44 | RAD REPORT ---
EXAM DESCRIPTION: CT - Spine Lumbar Wo Con - 09/26/2020 2:23 pm CLINICAL HISTORY: Radiculopathy. LOWER BACK PAIN COMPARISON: Spine Lumbar Wo Con dated 01/22/2018; Chest Abdomen Pelvis W Cont dated 03/11/2020 TECHNIQUE: Axial noncontrast CT imaging of the lumbar spine was performed with coronal and sagittal re-formatted images. All CT scans are performed using dose optimization technique as appropriate and may include automated exposure control or mA/KV adjustment according to patient size. FINDINGS: There is a fracture involving the L3 vertebral body present. The fracture involves the olegario tral portion of the vertebral body in a compression type pattern but also demonstrates vertical compo nent through the body of the vertebral body as well as posterior vertebral body cortex involvement wi th mild retropulsion. There is mild central canal stenosis caused by this. Vertebral body height loss is estimated 30-40%. There is evidence of old superior compression fracture affecting L2. Mild lower lumbar degenerative spondylosis is present. IMPRESSION: Moderate acute fracture involves the L3 vertebral body as detailed. Moderate canal steno sis is caused by this fracture.
[2020-09-26] MEDS ORDERED: ACETAMINOPHEN 325 MG TABLET ONE (15:33)
[2020-09-26] MEDS ORDERED: HYDROCODONE/APAP 10/325 TAB ONE (15:34)
[2020-09-26 15:47] LABS: Absolute Lymphocytes (CBC) 1.1 K/uL (0.7-4.9); Basophils % 0.9 % (0-1.3); Hematocrit 26.6 % (39.6-49.0); Lymphocytes % 18.4 % (15.3-44.8); RBC Red Blood Cell Count 2.68 M/uL (4.33-5.43)
[2020-09-26 15:59] LABS: Potassium 3.9 mmol/L (3.5-5.1)
--- NOTE | 2020-09-26 17:04 | EDPHYS ---
Physician Documentation [facility] Name: Dorian Cruz Age: 70 yrs Sex: Male : 1950 Arrival Date: 09/26/2020 Time: 10:49 Bed 9 Private MD: ED Physician Jaspal Garcia HPI: 09/26 21:19 This 70 yrs old Male presents to ER via Ambulatory with complaints of Back kdr Pain. 21:19 The patient presents with pain that is acute. The symptoms are located in the low back. kdr Onset: The symptoms/episode began/occurred suddenly, 10 day(s) ago. The pain does not radiate. Associated signs and symptoms: Pertinent positives: none. The problem was sustained Was reaching out when he felt acute pain in his low mid back pain is persisted since its initial onset. Modifying factors: The patient symptoms are alleviated by remaining still, specific position, lying down, the patient symptoms are aggravated by any movement. Severity of symptoms: At their worst the symptoms were mild, moderate, just prior to arrival, in the emergency department the symptoms are unchanged. The patient has not experienced similar symptoms in the past. The patient has not recently seen a physician. Historical: - Allergies: 11:01 Codeine; kg - Home Meds: 11:01 torsemide 20 mg Oral tab 3 tabs twice a day [Active]; Carafate 1 gram Oral tab 1 tab 4 kg times per day [Active]; lactulose 20 gram/30 mL Oral soln 30 mL 3 times per day [Active]; Xifaxan 550 mg oral tab 1 tab 2 times per day [Active]; midodrine 10 mg oral tab 1 tab 3 times per day [Active]; ergocalciferol (vitamin D2) 50,000 unit oral tab daily [Active]; Protonix 40 mg oral TbEC 1 tab once daily [Active]; saw palmetto oral daily [Active]; sucralfate 1 gram Oral tab 1 tab 2 times per day [Active]; Vitamin B-12 Oral daily [Active]; - PMHx: 11:01 Cirrhosis; Hepatitis; kg - PSHx: 11:01 Left knee Sx; Tonsillectomy; kg - Immunization history:: Adult Immunizations up to date, Client reports receiving the 2nd dose of the Covid vaccine, Date received: August 13, 2020 Moderna Client reports receiving the 1st dose of the Covid vaccine, June 2020 [facility]. - Social history:: Smoking status: Patient denies any tobacco usage or history of. ROS: 21:19 Constitutional: Negative for fever, chills, and weight loss, Eyes: Negative for injury, kdr pain, redness, and discharge, Neck: Negative for injury, pain, and swelling, Cardiovascular: Negative for chest pain, palpitations, and edema, Respiratory: Negative for shortness of breath, cough, wheezing, and pleuritic chest pain, Abdomen/GI: Negative for abdominal pain, nausea, vomiting, diarrhea, and constipation, : Negative for injury, bleeding, discharge, and swelling, MS/Extremity: Negative for injury and deformity, Skin: Negative for injury, rash, and discoloration, Neuro: Negative for headache, weakness, numbness, tingling, and seizure activity. Psych: Negative for depression, anxiety, suicide ideation, homicidal ideation, and hallucinations, Allergy/Immunology: Negative for hives, rash, and allergies, Endocrine: Negative for neck swelling, polydipsia, polyuria, polyphagia, and marked weight changes, Hematologic/Lymphatic: Negative for swollen nodes, abnormal bleeding, and unusual bruising. 21:19 Back: Positive for decreased range of motion, pain at rest, pain with movement, of the lumbar area. Exam: 21:19 Constitutional: This is a well developed, well nourished patient who is awake, alert, kdr and in no acute distress. Head/Face: Normocephalic, atraumatic. Eyes: Pupils equal round and reactive to light, extra-ocular motions intact. Lids and lashes normal. Conjunctiva and sclera are non-icteric and not injected. Cornea within normal limits. Periorbital areas with no swelling, redness, or edema. Neck: Trachea midline, no thyromegaly or masses palpated, and no cervical lymphadenopathy. Supple, full range of motion without nuchal rigidity, or vertebral point tenderness. No Meningismus. Chest/axilla: Normal chest wall appearance and motion. Nontender with no deformity. No lesions are appreciated. Cardiovascular: Regular rate and rhythm with a normal S1 and S2. No gallops, murmurs, or rubs. Normal PMI, no JVD. No pulse deficits. Respiratory: Lungs have equal breath sounds bilaterally, clear to auscultation and percussion. No rales, rhonchi or wheezes noted. No increased work of breathing, no retractions or nasal flaring. Abdomen/GI: Soft, non-tender, with normal bowel sounds. No distension or tympany. No guarding or rebound. No evidence of tenderness throughout. Skin: Warm, dry with normal turgor. Normal color with no rashes, no lesions, and no evidence of cellulitis. MS/ Extremity: Pulses equal, no cyanosis. Neurovascular intact. Full, normal range of motion. Neuro: Awake and alert, GCS 15, oriented to person, place, time, and situation. Cranial nerves II-XII grossly intact. Motor strength 5/5 in all extremities. Sensory grossly intact. Cerebellar exam normal. Normal gait. Psych: Awake, alert, with orientation to person, place and time. Behavior, mood, and affect are within normal limits. 21:19 Back: pain, that is mild, ROM is painful, normal spinal alignment noted, CVA tenderness, is absent. Vital Signs: 10:57 Pulse 82; Resp 20; Temp 99.2(TE); Pulse Ox 95% on R/A; Weight 109.32 kg (R); Height 5 kg ft. 10 in. (177.80 cm) (R); Pain 3/10; 10:57 BP 112 / 51; kg 17:40 BP 130 / 63; Pulse 61; Resp 18 S; Pulse Ox 100% on R/A; aa5 10:57 Body Mass Index 34.58 (109.32 kg, 177.80 cm) kg MDM: 17:04 Patient medically screened. kdr 21:19 Data reviewed: vital signs, nurses notes, lab test result(s), radiologic studies. kdr Counseling: I had a detailed discussion with the patient and/or guardian regarding: the historical points, exam findings, and any diagnostic results supporting the discharge/admit diagnosis, lab results, radiology results, the need for outpatient follow up, The patient was given the option of transfer to [facility] orthopedic and spine [facility] or discharged home with pain medication. The patient chose for discharge home. 09/26 12:07 Order name: Urine Dipstick-Ancillary EDMS 09/26 14:02 Order name: CBC with Diff; Complete Time: 16:48 kdr 09/26 14:02 Order name: CT Lumbar Spine Wo Con; Complete Time: 16:48 kdr 09/26 14:02 Order name: Chem 7; Complete Time: 16:48 kdr 09/26 18:28 Order name: COVID-19 : Document "Date of Symptom Onset" if Symptomatic. la1 Administered Medications: 15:22 Drug: Hydrocodone-Acetaminophen (10 mg-650 mg) 1 tabs Route: PO; aa5 16:45 Follow up: Response: No adverse reaction; Pain is decreased aa5 17:49 Drug: Zofran (Ondansetron) 4 mg Route: IVP; Site: left femoral; aa5 18:00 Follow up: Response: No adverse reaction; Nausea is decreased aa5 19:01 Drug: fentaNYL Patch (50 mcg/hr) 1 patches Route: Transdermal; Site: anterior chest aa5 wall; Disposition Summary: 09/26/20 17:04 Discharge Ordered Location: Home kdr Problem: an acute exacerbation kdr Symptoms: have improved kdr Condition: Stable kdr Diagnosis - Anemia, unspecified kdr - Weakness kdr - Low back pain kdr - Chronic renal failure kdr Followup: kdr - With: Jan Kenney MD - When: 2 - 3 days - Reason: If symptoms return, Further diagnostic work-up, Recheck today's complaints, Continuance of care, Re-evaluation by your physician Discharge Instructions: - Discharge Summary Sheet kdr - Anemia kdr - Musculoskeletal Pain kdr - Chronic Back Pain, Ldhv-es-Nput kdr - Weakness, Jsar-qf-Dxel kdr Forms: - Medication Reconciliation Form kdr - Thank You Letter kdr - Prescription Opioid Use kdr Prescriptions: - Zofran 4 mg Oral Tablet - take 1 tablet by ORAL route every 4-6 hours As needed; 20 tablet; Refills: 0, kdr Product Selection Permitted - Tramadol 50 mg Oral Tablet - take 1 tablet by ORAL route every 8 hours as needed; 12 tablet; Refills: 0, kdr Product Selection Permitted Signatures: Dispatcher [employer] Jaspal King MD MD kdr Laura Warren RN RN aa5 Dunia Billings RN RN kg
--- NOTE | 2020-09-26 17:04 | ER ---
Nurse's Notes [facility] Name: Dorian Cruz Age: 70 yrs Sex: Male : 1950 Arrival Date: 09/26/2020 Time: 10:49 Bed 9 Private MD: Diagnosis: Anemia, unspecified;Weakness;Low back pain;Chronic renal failure Presentation: 09/26 10:57 Chief complaint: Patient states: Back pain x 1 wk. Pt stated, "I think I have a slip kg disk, this has happened 10 yrs ago.". Coronavirus screen: Client denies travel out of the [place] in the last 14 days. At this time, unable to obtain information related to travel outside the [place] At this time, the client does not indicate any symptoms associated with coronavirus-19. Ebola Screen: Patient negative for fever greater than or equal to 101.5 degrees Fahrenheit, and additional compatible Ebola Virus Disease symptoms Patient denies exposure to infectious person. Patient denies travel to an Ebola-affected area in the 21 days before illness onset. Initial Sepsis Screen: Does the patient meet any 2 criteria? No. Patient's initial sepsis screen is negative. Does the patient have a suspected source of infection? No. Patient's initial sepsis screen is negative. Risk Assessment: Do you want to hurt yourself or someone else? Patient reports no desire to harm self or others. Onset of symptoms was September 19, 2020. 10:57 Method Of Arrival: Ambulatory kg 10:57 Acuity: NGOC 4 kg Triage Assessment: 11:01 General: Appears in no apparent distress. Behavior is calm, cooperative, appropriate kg for age, quiet. Pain: Complains of pain in lumbar area Pain currently is 3 out of 10 on a pain scale. at worst was 9 out of 10 on a pain scale. level that patient reports is acceptable is 3 out of 10 on a pain scale. Quality of pain is described as aching. Musculoskeletal: Reports pain in lumbar area since x 1 week. Pain is 3 out of 10 on a pain scale. Historical: - Allergies: 11: Codeine; kg - Home Meds: 11:01 torsemide 20 mg Oral tab 3 tabs twice a day [Active]; Carafate 1 gram Oral tab 1 tab 4 kg times per day [Active]; lactulose 20 gram/30 mL Oral soln 30 mL 3 times per day [Active]; Xifaxan 550 mg oral tab 1 tab 2 times per day [Active]; midodrine 10 mg oral tab 1 tab 3 times per day [Active]; ergocalciferol (vitamin D2) 50,000 unit oral tab daily [Active]; Protonix 40 mg oral TbEC 1 tab once daily [Active]; saw palmetto oral daily [Active]; sucralfate 1 gram Oral tab 1 tab 2 times per day [Active]; Vitamin B-12 Oral daily [Active]; - PMHx: 11:01 Cirrhosis; Hepatitis; kg - PSHx: 11:01 Left knee Sx; Tonsillectomy; kg - Immunization history:: Adult Immunizations up to date, Client reports receiving the 2nd dose of the Covid vaccine, Date received: August 13, 2020 Client reports receiving the 1st dose of the Covid vaccine, June 2020. - Social history:: Smoking status: Patient denies any tobacco usage or history of. Screenin:30 Abuse screen: Denies threats or abuse. Nutritional screening: No deficits noted. aa5 Tuberculosis screening: No symptoms or risk factors identified. Fall Risk Fall in past 12 months (25 points). IV access (20 points). Assessment: 15:00 General: Appears uncomfortable, Behavior is calm, cooperative. Pain: Complains of pain aa5 in lumbar area Pain currently is 8 out of 10 on a pain scale. Quality of pain is described as sharp, shooting, Is continuous. Neuro: Level of Consciousness is awake, alert, obeys commands, Oriented to person, place, time, situation. Cardiovascular: Patient's skin is warm and dry. Respiratory: Airway is patent Respiratory effort is even, unlabored, Respiratory pattern is regular, symmetrical. GI: Abdomen is round. : No signs and/or symptoms were reported regarding the genitourinary system. EENT: No signs and/or symptoms were reported regarding the EENT system. Derm: Skin is pink, warm \\T\\ dry. Musculoskeletal: Range of motion: intact in all extremities, Pt reports over the last week he has needed to use walker due to back pain. 15:22 Reassessment: Patient is alert, oriented x 3, equal unlabored respirations, skin aa5 warm/dry/pink. 16:45 Reassessment: Patient is alert, oriented x 3, equal unlabored respirations, skin aa5 warm/dry/pink. 17:40 Reassessment: Patient is alert, oriented x 3, equal unlabored respirations, skin aa5 warm/dry/pink. Reports pain has improved, but now c/o nausea. MD at bedside. . 17:40 Pain: Pain currently is 3 out of 10 on a pain scale. aa5 18:40 Reassessment: Patient is alert, oriented x 3, equal unlabored respirations, skin aa5 warm/dry/pink. Patient states feeling better. Patient states symptoms have improved. Dr. Garcai speaking to patient about possibility of transfer. Pt declining offer and requests to be sent home instead. . Vital Signs: 10:57 Pulse 82; Resp 20; Temp 99.2(TE); Pulse Ox 95% on R/A; Weight 109.32 kg (R); Height 5 kg ft. 10 in. (177.80 cm) (R); Pain 3/10; 10:57 BP 112 / 51; kg 17:40 BP 130 / 63; Pulse 61; Resp 18 S; Pulse Ox 100% on R/A; aa5 10:57 Body Mass Index 34.58 (109.32 kg, 177.80 cm) kg ED Course: 10:49 Patient arrived in ED. mr 11:01 Triage completed. kg 11:33 Jaspal Garcia MD is Attending Physician. kdr 14:22 CT Lumbar Spine Wo Con In Process Unspecified. EDMS 14:51 Laura Warren, JENNIFER is Primary Nurse. aa5 15:00 Patient has correct armband on for positive identification. Bed in low position. Call aa5 light in reach. Side rails up X2. 15:32 Initial lab(s) drawn, by ED staff, sent to lab. Inserted saline lock: 20 gauge in left aa5 forearm, using aseptic technique. Blood collected. 17:02 Jan Kenney MD is Referral Physician. kdr 18:30 No provider procedures requiring assistance completed. IV discontinued, intact, aa5 bleeding controlled, No redness/swelling at site. Pressure dressing applied. 18:31 initiated transfer to [facility]. eb 18:[address] [facility] called back to speak with the nurse. Was informed that the tt3 transfer could be cancelled due to acceptance elsewhere. Transfer center asking to speak with pt primary nurse or provider. 18:56 Primary Nurse role handed off by Laura Warren RN [id number] Administered Medications: 15:22 Drug: Hydrocodone-Acetaminophen (10 mg-650 mg) 1 tabs Route: PO; aa5 16:45 Follow up: Response: No adverse reaction; Pain is decreased aa5 17:49 Drug: Zofran (Ondansetron) 4 mg Route: IVP; Site: left femoral; aa5 18:00 Follow up: Response: No adverse reaction; Nausea is decreased aa5 19:01 Drug: fentaNYL Patch (50 mcg/hr) 1 patches Route: Transdermal; Site: anterior chest aa5 wall; Outcome: 17:04 Discharge ordered by . kdr 19:00 Discharged to home ambulatory, with walker, accompanied by brother aa5 19:00 Condition: improved 19:00 Discharge instructions given to patient, Instructed on discharge instructions, follow up and referral plans. medication usage, Demonstrated understanding of instructions, follow-up care, medications, Prescriptions given X 2. 19:02 Patient left the ED. aa5 Signatures: Dispatcher [employer] EDMS Jaspal Garcia MD MD kdr Ingram Nichole mr Laura Warren, JENNIFER RN aa5 Tim Cotton PA PA [id number] Tiara Hale Cheryl RN RN ca1 Ray Bell tt3 Dunia Billings RN RN kg Corrections: (The following items were deleted from the chart) 20:13 18:33 Patient left the ED. ca1 aa5
[2020-09-26] MEDS ORDERED: ONDANSETRON 4 MG/2 ML VIAL ONE (18:05)
[2020-09-26 18:40] VITALS: TEMP 99.2
[2020-09-26 18:41] VITALS: BP 130/63; O2SAT 100
[2020-09-26] MEDS ORDERED: FENTANYL 25 MCG/PATCH TD ONE ×2 (19:13→19:14)
== END 2020-09-26 19:02 | disposition home or self-care (01) ==
LOC: ER 10:44
DX: R53.1 Weakness (principal); N18.9 Chronic kidney disease, unspecified; D64.9 Anemia, unspecified; Z88.5 Allergy status to narcotic agent
CPT/HCPCS: 85025; 80048; 36415; 81003; 72131; 96374; 99284; J2405

== ENCOUNTER 2021-06-22 11:15 | Emergency (ER) | payer OTHER ==
--- OUTSIDE RECORDS SUMMARY | 2021-06-22 11:21 | XMS REPORT | Continuity of Care Document ---
:1950 Author Organization [facility] t Address [address] [place] [address] Care Team Providers Name Role Phone Anne Marie Primary Care Physician JE FREEMAN Attending Clinician Unavailable SAHAKAVEH Attending Clinician Unavailable TASTARD Attending Clinician Unavailable GERHARD Attending Clinician Unavailable BLAKE Attending Clinician Unavailable PARKER Attending Clinician Unavailable MD SHO WEBB Attending Clinician Unavailable MD PATTI Attending Clinician Unavailable Only, Test Attending Clinician Unavailable Norris WARD Attending Clinician AMOL Attending Clinician Unavailable SANTHOSH Attending Clinician Unavailable MD SANTHOSH Attending Clinician Unavailable RONALDO BURRELL Attending Clinician Unavailable MD AZEEM Attending Clinician Unavailable MARK ANTHONY Attending Clinician Unavailable CONRAD Attending Clinician Unavailable Alli ESTRADA Attending Clinician Unavailable AZEEM Attending Clinician Unavailable Hu WARD, W. Attending Clinician Felton Fang MD Attending Clinician Zen Enriquez RN Attending Clinician Unavailable TRACEY Attending Clinician Unavailable Sho CRENSHAW Attending Clinician Xiang WARD Attending Clinician Alvino RODRIGUEZ Attending Clinician Unavailable Bailee WARD, [facility] Attending Clinician Provider, Urgent Care Attending Clinician Unavailable JE FREEMAN Admitting Clinician Unavailable TASTARD Admitting Clinician Unavailable PATTI Admitting Clinician Unavailable BLAKE Admitting Clinician Unavailable TRACEY Admitting Clinician Unavailable MD SHO WBEB Admitting Clinician Unavailable SANTHOSH Admitting Clinician Unavailable MD SANTHOSH Admitting Clinician Unavailable RONALDO BURRELL Admitting Clinician Unavailable LEATHA DWYER Admitting Clinician Unavailable AZEEM Admitting Clinician Unavailable Payers Payer Name Policy Type Policy Effective Date Expiration Date Sour ce Number MEDICARE A B [id number] 2017 00:00:00 GENERIC MEDICARE [id number] 2018 SUPPLEMENT 00:00:00 MEDICAREMEDICARE PART [id number] 2017 Ri thodist A AND 00:00:00 Hospital [id number] 2017- [facility] 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 [id number] [address] [facility] MEDICARE 00:00:00 Hospital [id number] 2017-PresentComme rcial Problems Condition Condition Condition Status [...] Met hodi of liver of liver 05-08 00:00: Hospita 00 l Generalize Generalize Disease Active M ethodi d edema d edema 04-14 00:00: Hospita 00 l Hyperammon Hyperammon Disease Active M ethodi emia emia 04-14 00:00: Hospita 00 l Hypoalbumi Hypoalbumi Disease Active M ethodi nemia nemia 04-14 00:00: Hospita 00 l Neuralgia Neuralgia Disease Active Met hodi of right of right 04-14 sciatic sciatic 00:00: Hospita nerve nerve 00 l Pain in Pain in Disease Active Methodi left knee left knee 04-14 00:00: Hospita 00 l Scrotal Scrotal Disease Active Method[facility] edema edema 04-14 00:00: Hospita 00 l Strain of Strain of Disease Active Met hodi left left 04-14 patellar patellar 00:00: Hospit a tendon tendon 00 l Shortness Shortness Disease Active Met hodi of breath of breath 04-01 00:00: Hospita 00 l Hepatic Hepatic Disease Active Methodi cirrhosis cirrhosis 04-01 00:00: Hospita 00 l No known No known Disease Unive rs active active ity of problems problems [facility] Sciatica, Sciatica, Diagnosis Active C HI St [...] ents Source Name Type Date Date Clinician CODEINE Allergy [facility] Codeine Propensi Active Other (See Loopy - Me thodi ty to Comments) 04-[address] adverse 00:00: in other Hospita reaction 00 world l s to drug codeine Adverse Active Info Not [facility] Social History Social Habit Start Date Stop Date Quantity Comments Source History SDOH [facility] Alcohol Std Drinks History SDOH [facility] Alcohol Binge Exposure to Not sure [facility] SARS-CoV-2 (event) Alcohol intake 2020-09-19 2020-09-19 [facility] 00:[facility] 00:00:00 non-drinker (finding) History SDOH 2020-04-02 2020-04-02 1 [facility] Alcohol Frequency 00:00:00 00:00:00 Tobacco use and 2019-12-25 2019-12-25 Never used [facility] 00[facility]00[facility]00 [facility] Sex Ass[birth year] At [birth year] [facility] 00[facility]00[facility]00 [facility] Smoking Status Start Date Stop Date Source Never smoker [facility] Medications Ordered Filled Start Stop Current Ordering Indication Dosage Frequency Signature Comments Components Source Medication Medication Date Date Medication? Clinician (SIG) Name Name torsemide Yes 80mg Q.5D Take 4 Method i (DEMADEX) 8-[address] 20 MG 00:00: (80 mg Hospita tablet 00 total) by l mouth 2 (two) times a day. cyanocobala Yes 1{tbl} QD Take 1 Me thodi min, 7-[address] vitamin 15:16: mouth Hospita B-12, 25 daily. l (VITAMIN B-12 ORAL) COQ10, Yes 1{capsu QD Take 1 Method [...] times a l day. midodrine Yes 10mg Q.86450404 Take 10 mg Methodi (PROAMATINE 7-30 [id number] by mouth 3 st ) 10 MG 15:16: 3D (three) Hospita tablet 25 times a l day. riFAXimin Yes 550mg Q.5D Take 550 Met hodi (XIFAXAN) 7-[address] 550 mg 15:16: mouth 2 Hospita tablet 25 (two) l times a day. pantoprazol 2020- No 20mg QD Take 20 mg Methodi e 09-[address] (PROTONIX) 20:58: 00:00 daily. Hosp george 20 MG EC 54 :00 l tablet pantoprazol Yes 40mg Q.5D Take 1 Meth asif e - tablet (40 st (PROTONIX) 00:00: mg total) Ho spita 40 MG EC 00 by mouth 2 l tablet (two) times a day. ergocalcife 2020- No [id number] Q7D Take 1 M ethodi rol 08-[address] (VITAMIN 00:00: 04:59 (50,000 Hospi ta D2) 50,000 00 :00 Units l unit total) by capsule mouth once a week for 84 days. torsemide 2020- No 60mg Q.5D Take 60 mg M ethodi (DEMADEX) 08-[address] 20 MG 00:00: 00:00 (two) Hospita tablet 00 :00 times a l day. spironolact 2020- No 100mg QD Take 1 Me thodi one 08-12- tablet st (ALDACTONE) 00:00: 00:00 (100 mg Ho spita 100 MG 00 :00 total) by l tablet mouth daily. magnesium 2020- No 400mg QD Take 400 Me thodi oxide 08-11 06-[address] (MAG-OX) 21:50: 00:00 mouth Hospita 400 mg 28 :00 daily. l (241.3 mg magnesium) tablet torsemide 2020- No 60mg Q.5D Take 3 Metho di (DEMADEX) 08-11- tablets st 20 MG 00:00: 00:00 (60 mg Hospita tablet 00 :00 total) by l mouth 2 (two) times a day. doxycycline 2020- No 100mg Q.5D Take 1 Me thodi (DORYX) 100 08-11-[address] MG EC 00:00: 04:59 (100 mg Hospita tablet 00 :00 total) by l mouth 2 (two) times a day for 7 days. riFAXimin 2020-2020- No 550mg Q.5D Take 1 Meth asif (XIFAXAN) 08-[address] 550 mg 00:00: 00:00 (550 mg Hospita tablet 00 :00 total) by l mouth 2 (two) times a day for 30 days. spironolact 2020-2020- No 100mg Q.5D Take 1 Me thodi one -16 06- tablet st (ALDACTONE) 00:00: 04:59 (100 mg Ho spita 100 MG 00 :00 total) by l tablet mouth 2 (two) times a day for 30 days. lactulose 2020-0 2020- No 20g Q.[id number] Take 20 g Methodi 10 gram/15 04-14- [id number] by mouth 3 st mL (15 mL) [...] Q.5D Take 40 mg Method[facility] (LASIX) 40 04-[address] mg tablet 22:38: 00:00 (two) Hospit a 55 :00 times a l day. lactulose Yes 20g Q.25D Take 30 mL M ethodi 20 gram/30 04-14 ([address] mL solution 00:00: total) by H ospita 00 mouth 4 l (four) times a day. spironolact 2020-2020- No 100mg Q.5D Take 1 Me thodi one 04-14- tablet st (ALDACTONE) 00:00: 00:00 (100 mg Ho spita 100 MG 00 :00 total) by l tablet mouth 2 (two) times a day. midodrine 2020-2020- No 5mg Q.[id number] Take 1 Methodi (PROAMATINE 04-14 [id number] tablet (5 st ) 5 MG 00:00: 00:00 3D mg total) Hospi ta tablet 00 :00 by mouth 3 l (three) times a day for 30 days. torsemide 2020- No 60mg Q.5D Take 3 Metho di (DEMADEX) 04-[address] 20 MG 00:00: 00:00 (60 mg Hospita tablet 00 :00 total) by l mouth 2 (two) times a day. tamsulosin No .4mg QD Take 1 Meth asif (FLOMAX) 04-[address] 0.4 mg 00:00: 00:00 (0.4 mg Hospita capsule 00 :00 total) by l mouth daily with dinner. albuterol 2019-02 Yes [id number] 2{puff} Inhale 2 Univers 90 1-03 Puffs ity of mcg/actuati 00:00: every 6 Julio as on inhaler 00 (six) Medical hours as Branch needed for Wheezing, Shortness of Breath or Chest tightness. Meloxicam Meloxicam 2019- No Renato [address] [facility] [facility] 206[facility]ad[facility] Clinics spironolact spironolact Yes Renato not [facility] one one Tobar defined [facility] Furosemide Furosemide Yes Renato not [facility] Amadou defined [facility] Immunizations Ordered Immunization Filled Immunization Date Status Commen ts Source Name Name FLUZONE HIGH-DOSE PF 2020-04-14 Completed Meth odist 00:00:00 Hospital Vital Signs Vital Name Observation Time Observation Value Comments Source WEIGHT 2020-06-27 06:00:00 106.595 kg HEIGHT 2020-06-26 23:19:00 177.8 cm WEIGHT 2020-06-27 06:00:00 106.595 kg HEIGHT 2020-06-26 23:19:00 177.8 cm Body height 2020-09-19 15:15:00 177.8 cm [facility] Body weight 2020-09-19 15:15:00 110.496 kg [facility] BMI 2020-09-19 15:15:00 34.95 kg/m2 [facility] Systolic blood 2020-09-01 13:08:47 113 mm[Hg] Method [facility] Hospital pressure Diastolic blood 2020-09-01 13:08:47 58 mm[Hg] [facility] pressure Heart rate 2020-09-01 13:08:47 62 /min [facility] Body temperature 2020-09-01 13:08:47 36.39 Radha [facility] Respiratory rate 2020-09-01 13:08:47 20 /min [facility] Oxygen saturation in 2020-09-01 13:08:47 99 /min [facility] Arterial blood by Pulse oximetry Procedures Procedure Date / Time Performing Source Performed Clinician HC COMPLETE BLD COUNT W/AUTO DIFF 2020-09-01 Tobi Garcia 09:37:[address] [facility] BASIC METABOLIC PANEL 2020-09-01 Tobi Garcia 09:37:[address] [facility] HEPATIC FUNCTION PANEL 2020-09-01 Tobi Garcia 09:37:[address] [facility] MAGNESIUM LEVEL 2020-09-01 Tobi Garcia 09:37:[address] [facility] PHOSPHORUS LEVEL 2020-09-01 Tobi Garcia 09:37:[address] [facility] PROTHROMBIN TIME WITH INR 2020-09-01 Temi Garcia 09:37:[address] [facility] ESTIMATED GFR 2020-09-01 Tobi Garcia 09:37:[address] [facility] SMEAR REVIEW 2020-09-01 Tobi Garcia 09:37:[address] [facility] HEMOGLOBIN & HEMATOCRIT 2020-09-01 Delmi Garcia 03:19:[address] [facility] HC COMPLETE BLD COUNT W/AUTO DIFF 2020-08-31 Tobi Garcia 10:29:[address] [facility] BASIC METABOLIC PANEL 2020-08-31 Tobi Garcia 10:29:[address] [facility] HEPATIC FUNCTION PANEL 2020-08-31 Tobi Garcia 10:29:[address] [facility] MAGNESIUM LEVEL 2020-08-31 Tobi Garcia 10:29:[address] [facility] PHOSPHORUS LEVEL 2020-08-31 Tobi Garcia 10:29:[address] [facility] PROTHROMBIN TIME WITH INR 2020-08-31 Ronaldo Burrell Method ist 10:29:[address] [facility] ESTIMATED GFR 2020-08-31 Tobi Garcia 10:29:[address] [facility] SMEAR REVIEW 2020-08-31 Temi Garciaist 10:29:[address] [facility] TRANSFUSE RED BLOOD CELLS 2020-08-30 Ronaldo Burrell Method ist 23:54:[address] [facility] ESOPHAGOGASTRODUODENOSCOPY (EGD) 2020-08-30 Ruddy Luiist 18:18:00 [facility] TRANSFUSE RED BLOOD CELLS 2020-08-30 Ronaldo Burrell Method ist 18:09:[address] [facility] TTE COMPLETE W AGITATED SALINE W 2020-08-30 Segundo Canales CONT W DOP 15:00:00 Hospital HEPATIC FUNCTION PANEL 2020-08-30 Tobi Garcia 10:06:[address] [facility] MAGNESIUM LEVEL 2020-08-30 Tobi Garcia 10:06:[address] [facility] PHOSPHORUS LEVEL 2020-08-30 Tobi Garcia 10:06:[address] [facility] PROTHROMBIN TIME WITH INR 2020-08-30 Temi Garcia ist 10:06:[address] [facility] ESTIMATED GFR 2020-08-30 Tobi Garcia 10:06:[address] [facility] SMEAR REVIEW 2020-08-30 Tobi Garcia 10:06:[address] [facility] HC COMPLETE BLD COUNT W/AUTO DIFF 2020-08-30 Tobi Garcia 10:06:[address] [facility] BASIC METABOLIC PANEL 2020-08-30 Tobi Garcia 10:06:[address] [facility] US ABDOMINAL DOPPLER 2020-08-29 Ilene Berkowitz 22:45:05 Hospital HEMOGLOBIN & HEMATOCRIT 2020-08-29 Ilene Berkowitz Method ist 19:03:00 Hospital POTASSIUM LEVEL 2020-08-29 Aubrey Carmichael 17:40:00 [facility] HEMOGLOBIN & HEMATOCRIT 2020-08-29 Ilene Berkowitz Method ist 17:40:00 Hospital POTASSIUM LEVEL 2020-08-29 Tobi Garcia 13:15:[address] [facility] HC COMPLETE BLD COUNT W/AUTO DIFF 2020-08-29 Tobi Garcia 10:09:[address] [facility] BASIC METABOLIC PANEL 2020-08-29 Tobi Garcia 10:09:[address] [facility] HEPATIC FUNCTION PANEL 2020-08-29 Temi Garciaist 10:09:[address] [facility] MAGNESIUM LEVEL 2020-08-29 Temi Garciaist 10:09:[address] [facility] PHOSPHORUS LEVEL 2020-08-29 Temi Garciaist 10:09:[address] [facility] PROTHROMBIN TIME WITH INR 2020-08-29 Ronaldo Burrell Method ist 10:09:[address] [facility] ESTIMATED GFR 2020-08-29 Tobi Garcia 10:09:[address] [facility] URINE CULTURE 2020-08-29 Temi Garciaist 07:15:[address] [facility] URINALYSIS SCREEN AND MICROSCOPY, 2020-08-29 Tobi Garcia WITH REFLEX TO CULTURE 07:15:[address] [facility] BLOOD CULTURE, AEROBIC & ANAEROBIC 2020-08-29 Temi Garciaist 05:56:[address] [facility] BLOOD CULTURE, AEROBIC & ANAEROBIC 2020-08-29 RonaldoTemi Rauschist 05:38:[address] [facility] COVID-19 QUALITATIVE RT-PCR 2020-08-29 Rhoda Baker odist 04:33:00 [facility] HEMOGLOBIN & HEMATOCRIT 2020-08-29 Delmi Garcia t 04:00:[address] [facility] ECG ED PRELIMINARY INTERPRETATION 2020-08-28 Rhoda Baker 22:17:31 [facility] HI CRITICAL CARE, E/M 30-74 2020-08-28 Rhoda Baker Meth odist MINUTES 22:17:31 [facility] PREPARE RBC 2020-08-28 Tobi Garcia 21:57:[address] [facility] HC COMPLETE BLD COUNT W/AUTO DIFF 2020-08-28 Rhoda Baker 21:57:00 [facility] PROTHROMBIN TIME WITH INR 2020-08-28 Rhoda Baker Method ist 21:57:00 [facility] TYPE AND SCREEN 2020-08-28 Rhoda Baker 21:57:00 [facility] COMPREHENSIVE METABOLIC PANEL 2020-08-28 Rhoda Baker thodist 21:57:00 [facility] LIPASE LEVEL 2020-08-28 Rhoda Baker 21:57:00 [facility] PARTIAL THROMBOPLASTIN TIME (PTT) 2020-08-28 Rhoda Baker 21:57:00 [facility] ESTIMATED GFR 2020-08-28 Maxx Doan [facility] 21:57:00 [facility] ECG 12-LEAD 2020-08-28 Rhoda Baker 21:47:56 [facility] MAGNESIUM LEVEL 2020-08-20 Aubrey Carmichael 12:16:00 [facility] BASIC METABOLIC PANEL 2020-08-20 Aubrey Carmichael 12:14:00 [facility] ABN TEST REFUSAL 2020-08-20 Aubrey Carmichael 12:14:00 [facility] PARATHYROID HORMONE 2020-08-20 Aubrey Carmichael 12:14:00 [facility] CBC WITH PLATELET AND DIFFERENTIAL 2020-08-11 Jimbo Berkowitz [facility] 10:00:00 [facility] BASIC METABOLIC PANEL 2020-08-11 Krishna Webbist 10:00:00 [facility] HEPATIC FUNCTION PANEL 2020-08-11 Krishna Webbist 10:00:00 [facility] MAGNESIUM LEVEL 2020-08-11 Krishna Webbist 10:00:00 [facility] PROTHROMBIN TIME WITH INR 2020-08-11 Krishna Webb Method ist 10:00:00 [facility] PHOSPHORUS LEVEL 2020-08-11 Krishna Webb [facility] 10:00:00 [facility] ESTIMATED GFR 2020-08-11 Krishna Webb [facility] 10:00:00 [facility] HC COMPLETE BLD COUNT W/AUTO DIFF 2020-08-10 Santy Berkowitz [facility] 10:38:00 [facility] COMPREHENSIVE METABOLIC PANEL 2020-08-10 Krishna Webb thodist 10:38:00 [facility] PROTHROMBIN TIME WITH INR 2020-08-10 Krishna Webb Method ist 10:38:00 [facility] ESTIMATED GFR 2020-08-10 TraceyGaryh [facility] 10:38:00 [facility] US ABDOMINAL PARACENTESIS IMAGING 2020-08-09 Martha Burns or [facility] 21:30:00 Hospital HC COMPLETE BLD COUNT W/AUTO DIFF 2020-08-09 Santy Berkowitz [facility] 10:27:00 Hospital RETICULOCYTE COUNT 2020-08-09 BurnsGirma kwantor [facility] 10:27:00 Hospital COMPREHENSIVE METABOLIC PANEL 2020-08-09 Girma Burnstor M ethodist 10:27:00 Hospital PROTHROMBIN TIME WITH INR 2020-08-09 Burns, Donald [facility] 10:27:00 Hospital FIBRINOGEN 2020-08-09 Girma Burnstor [facility] 10:27:00 Hospital ESTIMATED GFR 2020-08-09 Burns, Donald [facility] 10:27:00 Hospital POC GLUCOSE 2020-08-09 Azeem Donald [facility] 02:24:00 Hospital HEMOGLOBIN & HEMATOCRIT 2020-08-08 Ilene Berkowitz Method ist 21:46:00 Hospital HC COMPLETE BLD COUNT W/AUTO DIFF 2020-08-08 Martha Burns or [facility] 09:39:00 Hospital MAGNESIUM LEVEL 2020-08-08 Azeem Donald [facility] 09:39:00 Hospital PHOSPHORUS LEVEL 2020-08-08 Azeem, Doanld [facility] 09:39:00 Hospital HEPATIC FUNCTION PANEL 2020-08-08 Donald Burns Methodis t 09:39:00 Hospital PROTHROMBIN TIME WITH INR 2020-08-08 Burns, Donald [facility] 09:39:00 Hospital BASIC METABOLIC PANEL 2020-08-08 Burns, Donald [facility] 09:39:00 Hospital ESTIMATED GFR 2020-08-08 Burns, Donald [facility] 09:39:00 Hospital HC COMPLETE BLD COUNT W/AUTO DIFF 2020-08-07 BurnsGirma kwant or [facility] 10:05:00 Hospital PROTHROMBIN TIME WITH INR 2020-08-07 Burns, Donald [facility] 10:05:00 Hospital BASIC METABOLIC PANEL 2020-08-07 Burns, Donald [facility] 09:00:00 Hospital HEPATIC FUNCTION PANEL 2020-08-07 Donald Burns Methodis t 09:00:00 Hospital MAGNESIUM LEVEL 2020-08-07 Donald Burns [facility] 09:00:00 Hospital PHOSPHORUS LEVEL 2020-08-07 Donald Burns [facility] 09:00:00 Hospital ESTIMATED GFR 2020-08-07 Donald Burns [facility] 09:00:00 Hospital US ABDOMINAL LIMITED 2020-08-06 Ilene Berkowitz 22:47:44 Hospital BASIC METABOLIC PANEL 2020-08-06 Donald Burns [facility] 09:36:00 Hospital HEPATIC FUNCTION PANEL 2020-08-06 Donald Burns t 09:36:00 Hospital HC COMPLETE BLD COUNT W/AUTO DIFF 2020-08-06 Martha Burns or [facility] 09:36:00 Hospital MAGNESIUM LEVEL 2020-08-06 Donald Burns [facility] 09:36:00 Hospital PHOSPHORUS LEVEL 2020-08-06 Donald Burns [facility] 09:36:00 Hospital FOLATE LEVEL 2020-08-06 Donald Burns [facility] 09:36:00 Hospital VITAMIN B12 LEVEL 2020-08-06 Donald Burns [facility] 09:36:00 Hospital RETICULOCYTE COUNT 2020-08-06 Donald Burns [facility] 09:36:00 Hospital FERRITIN LEVEL 2020-08-06 Donald Burns [facility] 09:36:00 Hospital HAPTOGLOBIN 2020-08-06 Donald Burns [facility] 09:36:00 Hospital TOTAL IRON BINDING CAPACITY 2020-08-06 Donald Burns Met hodist 09:36:00 Hospital LDH 2020-08-06 Donald Burns [facility] 09:36:00 Hospital DIRECT KATIE' (MIRZA) 2020-08-06 Donald Burns [facility] 09:36:00 Hospital PERIPHERAL SMEAR 2020-08-06 Donald Burns [facility] 09:36:00 Hospital PROTHROMBIN TIME WITH INR 2020-08-06 Donald Burns [facility] 09:36:00 Hospital TYPE AND SCREEN 2020-08-06 Donald Burns [facility] 09:36:00 Hospital ESTIMATED GFR 2020-08-06 Donald Burns [facility] 09:36:00 Hospital BASIC METABOLIC PANEL 2020-08-05 Donald Burns [facility] 09:39:00 Hospital HEPATIC FUNCTION PANEL 2020-08-05 Donald Burns Methodis t 09:39:00 Hospital HC COMPLETE BLD COUNT W/AUTO DIFF 2020-08-05 Martha Burns or [facility] 09:39:00 Hospital MAGNESIUM LEVEL 2020-08-05 Donald Burns [facility] 09:39:00 Hospital PHOSPHORUS LEVEL 2020-08-05 Donald Burns [facility] 09:39:00 Hospital PROTHROMBIN TIME WITH INR 2020-08-05 Donald Burns [facility] 09:39:00 Hospital ESTIMATED GFR 2020-08-05 Donald Burns [facility] 09:39:00 Hospital HC COMPLETE BLD COUNT W/AUTO DIFF 2020-08-04 Gary Webb [facility] 09:31:00 [facility] PROTHROMBIN TIME WITH INR 2020-08-04 Krishna Webb Method ist 09:31:00 [facility] BASIC METABOLIC PANEL 2020-08-04 Krishna Webb [facility] 09:31:00 [facility] HEPATIC FUNCTION PANEL 2020-08-04 Krishna Webb [facility] 09:31:00 [facility] PHOSPHORUS LEVEL 2020-08-04 Krishna Webb [facility] 09:31:00 [facility] MAGNESIUM LEVEL 2020-08-04 Krishna Webb [facility] 09:31:00 [facility] ESTIMATED GFR 2020-08-04 Tracey Krishna [facility] 09:31:00 [facility] HC COMPLETE BLD COUNT W/AUTO DIFF 2020-08-03 Gary Webb [facility] 10:26:00 [facility] PROTHROMBIN TIME WITH INR 2020-08-03 Tracey Krishna Method ist 10:26:00 [facility] BASIC METABOLIC PANEL 2020-08-03 Krishna Webb [facility] 10:26:00 [facility] HEPATIC FUNCTION PANEL 2020-08-03 Krishna Webb [facility] 10:26:00 [facility] PHOSPHORUS LEVEL 2020-08-03 Krishna Webb 10:26:00 [facility] MAGNESIUM LEVEL 2020-08-03 Krishna Webb 10:26:00 [facility] ESTIMATED GFR 2020-08-03 Krishna Webb 10:26:00 [facility] SMEAR REVIEW 2020-08-03 Krishna Webb 10:26:00 [facility] US ABDOMINAL PARACENTESIS IMAGING 2020-08-02 Gary Webb 16:00:00 [facility] AEROBIC CULTURE 2020-08-02 Krishna Webb 15:58:00 [facility] ANAEROBIC CULTURE 2020-08-02 Krishna Webb 15:58:00 [facility] GRAM STAIN 2020-08-02 Krishna Webb 15:58:00 [facility] PROTEIN, MISC FLUID 2020-08-02 Krishna Webb 15:58:00 [facility] CELL COUNT AND DIFFERENTIAL, BODY 2020-08-02 Gary Webb FLUID 15:58:00 [facility] ALBUMIN, MISC FLUID 2020-08-02 Krishna Webb 15:58:00 [facility] HC COMPLETE BLD COUNT W/AUTO DIFF 2020-08-02 Gary Webb 09:42:00 [facility] PROTHROMBIN TIME WITH INR 2020-08-02 Krishna Webb ist 09:42:00 [facility] BASIC METABOLIC PANEL 2020-08-02 Krishna Webb 09:42:00 [facility] HEPATIC FUNCTION PANEL 2020-08-02 Krishna Webb 09:42:00 [facility] PHOSPHORUS LEVEL 2020-08-02 Krishna Webb 09:42:00 [facility] MAGNESIUM LEVEL 2020-08-02 Krishna Webb 09:42:00 [facility] HEMOGLOBIN A1C 2020-08-02 Krishna Webb 09:42:00 [facility] ESTIMATED GFR 2020-08-02 Krishna Webb 09:42:00 [facility] URINE CULTURE 2020-08-02 Krishna Webb 04:57:00 [facility] URINALYSIS SCREEN AND MICROSCOPY, 2020-08-02 Gary Webb WITH REFLEX TO CULTURE 04:57:00 [facility] COVID-19 QUALITATIVE RT-PCR 2020-08-02 Krishna Webb 04:33:00 [facility] BLOOD CULTURE, AEROBIC & ANAEROBIC 2020-08-02 Roldanr, Elisabeth valdovinos [facility] 03:34:00 [facility] HC COMPLETE BLD COUNT W/AUTO DIFF 2020-08-02 Roldanr, Gary soto [facility] 03:34:00 [facility] BASIC METABOLIC PANEL 2020-08-02 Dinakar, Krishna [facility] 03:33:00 [facility] HEPATIC FUNCTION PANEL 2020-08-02 DinjazmynrKrishnaist 03:33:00 [facility] [facility] MAGNESIUM LEVEL 2020-08-02 Dinakar, Krishna Membrenoist 03:33:00 [facility] PHOSPHORUS LEVEL 2020-08-02 Dinakar, Krishna Membrenoist 03:33:00 [facility] PROTHROMBIN TIME WITH INR 2020-08-02 Roldanr, Krishna Method ist 03:33:00 [facility] ESTIMATED GFR 2020-08-02 Krishna Webb [facility]ism 03:33:00 [facility] PREPARE RBC 2020-08-02 Krishna Webb 03:32:00 [facility] TYPE AND SCREEN 2020-08-02 RoldanrKrishna Cheondoism 03:32:00 [facility] BLOOD CULTURE, AEROBIC & ANAEROBIC 2020-08-02 Roldanr, Elisabeth valdovinos [facility]ism 03:24:00 [facility] XR CHEST 1 VW PORTABLE 2020-08-02 Roldanr, Krishna Cheondoism 01:42:40 [facility] ECG 12-LEAD 2020-08-02 RoldanrKrishna Cheondoism 00:49:23 [facility] SPIROMETRY, DIFFUSION, LUNG 2020-05-16 AdamkeLeeroy bah odist VOLUMES, MIPS/MEPS 19:33:19 [facility] HC COMPLETE BLD COUNT W/AUTO DIFF 2020-05-16 Martha Burns or [facility]ism 09:30:00 Hospital BASIC METABOLIC PANEL 2020-05-16 Donald Burns [facility] 09:30:00 Hospital HEPATIC FUNCTION PANEL 2020-05-16 Donald Burns Methodis t 09:30:00 Hospital PHOSPHORUS LEVEL 2020-05-16 Azeem Donald [facility]ism 09:30:00 Hospital MAGNESIUM LEVEL 2020-05-16 Azeem, Donald [facility]ondoism 09:30:00 Hospital PROTHROMBIN TIME WITH INR 2020-05-16 Burns, Donald Metho dist 09:30:00 Hospital ESTIMATED GFR 2020-05-16 Azeem, Donald Cheondoism 09:30:00 Hospital IR VENOUS EMBOLIZATION 2020-05-[address] 21:34:00 Hospital XR CHEST 2 VW 2020-05-15 Tobi Otoole 18:00:00 [facility] HC COMPLETE BLD COUNT W/AUTO DIFF 2020-05-15 Martha Burns or [facility]ism 10:00:00 Hospital COMPREHENSIVE METABOLIC PANEL 2020-05-15 Donald Burns M ethodist 10:00:00 Hospital PHOSPHORUS LEVEL 2020-05-15 Girma Burnstor [facility]ism 10:00:00 Hospital MAGNESIUM LEVEL 2020-05-15 Azeem, Donald [facility]ism 10:00:00 Hospital PROTHROMBIN TIME WITH INR 2020-05-15 Azeem, Donald Metho dist 10:00:00 Hospital MISCELLANEOUS REFERRAL TEST 2020-05-15 Segundo Canales Ri thodist 10:00:00 Hospital ESTIMATED GFR 2020-05-15 Girma Burnstor [facility]ism 10:00:00 Hospital HC COMPLETE BLD COUNT W/AUTO DIFF 2020-05-14 Martha Burns or [facility] 10:51:00 Hospital COMPREHENSIVE METABOLIC PANEL 2020-05-14 Girma Burnstor M ethodist 10:51:00 Hospital PHOSPHORUS LEVEL 2020-05-14 Burns, Donald [facility]ism 10:51:00 Hospital MAGNESIUM LEVEL 2020-05-14 Azeem, Donald [facility]ondoism 10:51:00 Hospital PROTHROMBIN TIME WITH INR 2020-05-14 Burns, Donald Metho dist 10:51:00 Hospital ESTIMATED GFR 2020-05-14 Azeem, Donald [facility]ism 10:51:00 Hospital PROTEIN, URINE, 24 HOUR 2020-05-14 Delmi Otoole t 05:30:[address] [facility] [address] ABDOMEN WWO CONTRAST PELVIS W 2020-05-13 Hannah Berkowitz Cheondoism CONTRAST 17:24:08 Hospital HC COMPLETE BLD COUNT W/AUTO DIFF 2020-05-13 Martha Burns or Cheondoism 10:25:00 Hospital COMPREHENSIVE METABOLIC PANEL 2020-05-13 Donald Burns ethodist 10:25:00 Hospital PHOSPHORUS LEVEL 2020-05-13 Donald Burns [facility]ism 10:25:00 Hospital MAGNESIUM LEVEL 2020-05-13 Donald Burns [facility]ism 10:25:00 Hospital PROTHROMBIN TIME WITH INR 2020-05-13 Donald Burnso dist 10:25:00 Hospital ESTIMATED GFR 2020-05-13 Donald Burns 10:25:00 Hospital ECG 12-LEAD 2020-05-13 Tobi Otoole 04:00:37 [facility] CV RIGHT HEART CATH SELECTIVE 2020-05-13 Me Xiang thfarzaneh CORONARY 00:06:21 [facility] HLA TRANSPLANT EVALUATION 2020-05-12 Segundo Canales odist 21:11:00 Hospital LOW RESOLUTION FULL TYPING BY SSO 2020-05-12 Segundo Canales 21:11:00 [facility] SINGLE ANTIGEN BEADS 2020-05-12 Segundo Canales 21:11:00 [facility] C1Q CLASS 1 & 2 ANTIBODY 2020-05-12 Segundo Canaleso dist 21:11:00 [facility] US CAROTID DUPLEX BILATERAL 2020-05-12 Segundo Canales thodist 20:10:30 [facility] HEMOCHROMATOSIS (HFE) 3 MUTATIONS 2020-05-12 Segundo Canales 19:14:00 Hospital CYTOMEGALOVIRUS AB, IGG 2020-05-12 Segundo Canales Method ist 19:13:00 [facility] CYTOMEGALOVIRUS AB, IGM 2020-05-12 Segundo Canales Method ist 19:13:00 Hospital SYPHILIS TREPONEMA SCREEN WITH RPR 2020-05-12 Tremaine Canales CONFIRMATION (REVERSE ALGORITHM) 19:13:00 Hospital HEPATITIS A ANTIBODY TOTAL 2020-05-12 Segundo Canales hodist 19:13:00 Hospital HEPATITIS A ANTIBODY IGM 2020-05-12 Parker, Segundo Bradley Metho dist 19:13:00 Hospital HEPATITIS B SURFACE ANTIGEN 2020-05-12 Parker, Segundo Street thodist 19:13:00 Hospital HEPATITIS B SURFACE ANTIBODY 2020-05-12 Parker, Segundo Wolfe ethodist 19:13:00 Hospital HEPATITIS BE AG 2020-05-12 Parker, Segundo Britton 19:13:00 Hospital HEPATITIS BE AB 2020-05-12 Parker, Segundo Britton 19:13:00 Hospital HEPATITIS C ANTIBODY 2020-05-12 Parker, Segundo Britton 19:13:00 Hospital TYPE AND SCREEN 2020-05-12 Parker, Segundo Britton 19:09:00 Hospital PARTIAL THROMBOPLASTIN TIME (PTT) 2020-05-12 Parker, Segundo Britton 19:08:00 Hospital FIBRINOGEN 2020-05-12 Segundo Canales 19:08:00 Hospital HEMOGLOBIN A1C 2020-05-12 Parker, Segundo Britton 19:07:00 Hospital DRUG VAZQUEZ 9, SER/DARRIUS, SCRN W/RFLX 2020-05-12 Parker, Segundo Britton TO CONF 19:07:00 Hospital ZINC LEVEL, SERUM 2020-05-12 Segundo Canales 18:35:00 Hospital CORTISOL, FREE BY ED/LC-MS/MS 2020-05-12 Segundo Canales 18:35:[address] CHEST WO CONTRAST 2020-05-12 Segundo Canales 17:10:00 Hospital HIV AG/AB COMBINATION 2020-05-12 Segundo Canales t 15:17:00 Hospital HEPATITIS B CORE ANTIBODY TOTAL 2020-05-12 Segundo Canales 15:17:00 Hospital ANTI SMOOTH MUSCLE AB SCREEN 2020-05-12 Segundo Canales ethodi 15:17:00 Hospital T3, FREE 2020-05-12 Segundo Canales 15:17:00 Hospital CARCINOEMBRYONIC ANTIGEN (CEA) 2020-05-12 Segundo Canales 15:17:00 Hospital CANCER ANTIGEN 125 2020-05-12 Parker, Segundo Britton 15:17:00 Hospital CANCER ANTIGEN 19-9 2020-05-12 Parker, Segundo Britton 15:17:00 Hospital PROSTATE SPECIFIC ANTIGEN 2020-05-12 Parker, Segundo Umaña odist 15:17:00 Hospital MISCELLANEOUS REFERRAL TEST 2020-05-12 Segundo Canales thodist 15:17:00 Hospital HARPREET-FELDMAN VIRUS ANTIBODY TEST 2020-05-12 Parker, Segundo Britton 15:16:00 Hospital PREALBUMIN LEVEL 2020-05-12 Parker, Segundo Britton 15:16:00 Hospital C-REACTIVE PROTEIN 2020-05-12 Parker, Segundo Britton 15:16:00 Hospital VITAMIN D 25 HYDROXY LEVEL 2020-05-12 Segundo Canales hodist 15:16:00 Hospital CERULOPLASMIN LEVEL 2020-05-12 Segundo Canales 15:16:00 Hospital ALPHA-1 ANTITRYPSIN LEVEL 2020-05-12 Segundo Canales odist 15:16:00 Hospital CREATININE CLEARANCE, URINE, 24 2020-05-12 Segundo Canales HOUR 15:16:00 Hospital CORTISOL LEVEL, RANDOM 2020-05-[address] 15:16:00 [facility] SERUM ELECTROPHORESIS 2020-05-12 Segundo Canales t 15:16:00 Hospital LIPID PANEL 2020-05-12 Segundo Canales 15:16:00 Hospital ESTIMATED GFR 2020-05-12 Segundo Canales 15:16:00 Hospital HC COMPLETE BLD COUNT W/AUTO DIFF 2020-05-12 Gary Webb 10:00:00 [facility] PROTHROMBIN TIME WITH INR 2020-05-12 Krishna Webb 10:00:00 [facility] BASIC METABOLIC PANEL 2020-05-12 Krishna Webb 09:00:00 [facility] MAGNESIUM LEVEL 2020-05-12 Krishna Webb 09:00:00 [facility] HEPATIC FUNCTION PANEL 2020-05-12 Krishna Webb 09:00:00 [facility] PHOSPHORUS LEVEL 2020-05-12 Dinakar, Krishna Cheondoism 09:00:00 [facility] ESTIMATED GFR 2020-05-12 Dinakar, Krishna Cheondoism 09:00:00 [facility] BASIC METABOLIC PANEL 2020-05-11 Dinakar, Krishna Cheondoism 10:00:00 [facility] HC COMPLETE BLD COUNT W/AUTO DIFF 2020-05-11 Dinakar, Gary soto [facility]ism 10:00:00 [facility] MAGNESIUM LEVEL 2020-05-11 Dinakar, Krishna Cheondoism 10:00:00 [facility] HEPATIC FUNCTION PANEL 2020-05-11 Dinakar, Krishna Cheondoism 10:00:00 [facility] PHOSPHORUS LEVEL 2020-05-11 Dinakar, Krishna Cheondoism 10:00:00 [facility] PROTHROMBIN TIME WITH INR 2020-05-11 Dinakar, Krishna Method ist 10:00:00 [facility] ESTIMATED GFR 2020-05-11 Dinakar, Krishna Cheondoism 10:00:00 [facility] BASIC METABOLIC PANEL 2020-05-10 Dinakar, Krishna Cheondoism 10:05:00 [facility] HC COMPLETE BLD COUNT W/AUTO DIFF 2020-05-10 Dinakar, Gary soto Che[facility]ism 10:05:00 [facility] MAGNESIUM LEVEL 2020-05-10 Dinakar, Krishna Cheondoism 10:05:00 [facility] HEPATIC FUNCTION PANEL 2020-05-10 Dinakar, Krishna Cheondoism 10:05:00 [facility] PHOSPHORUS LEVEL 2020-05-10 Dinakar, Krishna Cheondoism 10:05:00 [facility] PROTHROMBIN TIME WITH INR 2020-05-10 Dinakar, Krishna Method ist 10:05:00 [facility] ESTIMATED GFR 2020-05-10 Dinakar, Krishna Cheondoism 10:05:00 [facility] PROTHROMBIN TIME WITH INR 2020-05-09 Temi Garcia ist 09:40:[address] [facility] COMPREHENSIVE METABOLIC PANEL 2020-05-09 Me Jose thodist 09:40:[address] [facility] HC COMPLETE BLD COUNT W/AUTO DIFF 2020-05-09 Tobi Garcia 09:40:[address] [facility] ESTIMATED GFR 2020-05-09 Tobi Garcia 09:40:[address] [facility] URINE CULTURE 2020-05-08 Segundo Canales 23:47:00 Hospital URINALYSIS SCREEN AND MICROSCOPY, 2020-05-08 Segundo Canales WITH REFLEX TO CULTURE 23:47:00 [facility] US ABDOMINAL DOPPLER 2020-05-08 Tobi Garcia 23:15:[address] [facility] US HEPATIC 2020-05-08 Tobi Garcia 23:15:[address] [facility] COVID-19 QUALITATIVE RT-PCR 2020-05-08 Leeroy Garcia odrosanna 22:01:[address] [facility] HC COMPLETE BLD COUNT W/AUTO DIFF 2020-05-08 Tobi Garcia 22:01:[address] [facility] PROTHROMBIN TIME WITH INR 2020-05-08 Temi Garcia ist 22:01:[address] [facility] COMPREHENSIVE METABOLIC PANEL 2020-05-08 Me Jose thodist 22:01:[address] [facility] MAGNESIUM LEVEL 2020-05-08 Tobi Garcia 22:01:[address] [facility] PHOSPHORUS LEVEL 2020-05-08 Tobi Garcia 22:01:[address] [facility] ESTIMATED GFR 2020-05-08 Tobi Garcia 22:01:[address] [facility] TYPE AND SCREEN 2020-05-08 Segundo Canales 22:01:00 Hospital TOTAL IRON BINDING CAPACITY 2020-05-08 Segundo Canales thodist 22:01:00 Hospital ALPHA FETOPROTEIN 2020-05-08 Segundo Canales 22:01:00 Hospital THYROID STIMULATING HORMONE 2020-05-08 Segundo Canales thodist 22:01:00 Hospital FERRITIN LEVEL 2020-05-08 Segundo Canales 22:01:00 Hospital BLOOD CULTURE, AEROBIC & ANAEROBIC 2020-05-08 Tremaine Canales 21:50:00 Hospital BLOOD CULTURE, AEROBIC & ANAEROBIC 2020-05-08 Tremaine Canales 21:20:00 Hospital BASIC METABOLIC PANEL 2020-04-14 Vu, Ronna K. Cheondoism 10:30:00 Hospital CBC WITH PLATELET AND DIFFERENTIAL 2020-04-14 Vu, Ronna K. Cheondoism 10:30:00 Hospital HEPATIC FUNCTION PANEL 2020-04-14 Vu, Ronna K. Cheondoism 10:30:00 Hospital MAGNESIUM LEVEL 2020-04-14 Vu, Ronna K. Cheondoism 10:30:00 Hospital PHOSPHORUS LEVEL 2020-04-14 Vu, Ronna K. Cheondoism 10:30:00 Hospital PROTHROMBIN TIME WITH INR 2020-04-14 Vu, Ronna K. Method ist 10:30:00 [facility] ESTIMATED GFR 2020-04-14 Dinakar, Krishna Cheondoism 10:30:00 [facility] MANUAL DIFFERENTIAL 2020-04-14 Dinakar, Krishna Cheondoism 10:30:00 [facility] XR PANOREX 2020-04-13 Ilene Berkowitz Cheondoism 15:17:49 [facility] BASIC METABOLIC PANEL 2020-04-13 Dinakar, Krishna Cheondoism 11:20:00 [facility] HC COMPLETE BLD COUNT W/AUTO DIFF 2020-04-13 Dinakar, Gary soto Che[facility]ism 11:20:00 [facility] MAGNESIUM LEVEL 2020-04-13 Dinakar, Krishna Cheondoism 11:20:00 [facility] HEPATIC FUNCTION PANEL 2020-04-13 Dinakar, Krishna Cheondoism 11:20:00 [facility] PHOSPHORUS LEVEL 2020-04-13 Dinakar, Krishna Cheondoism 11:20:00 [facility] PROTHROMBIN TIME WITH INR 2020-04-13 AshlynakarKrishna Method ist 11:20:00 [facility] ESTIMATED GFR 2020-04-13 Dinakar, Krishna Cheondoism 11:20:00 [facility] BASIC METABOLIC PANEL 2020-04-12 Dinakar, Krishna Cheondoism 11:40:00 [facility] HC COMPLETE BLD COUNT W/AUTO DIFF 2020-04-12 Ashlynakar, Gary soto Che[facility]ism 11:40:00 [facility] MAGNESIUM LEVEL 2020-04-12 Dinakar, Krishna Cheondoism 11:40:00 [facility] HEPATIC FUNCTION PANEL 2020-04-12 Dinakar, Krishna Cheondoism 11:40:00 [facility] PHOSPHORUS LEVEL 2020-04-12 Dinakar, Krishna Cheondoism 11:40:00 [facility] PROTHROMBIN TIME WITH INR 2020-04-12 Dinakar, Krishna Method ist 11:40:00 [facility] ESTIMATED GFR 2020-04-12 Dinakar, Krishna Cheondoism 11:40:00 [facility] HC COMPLETE BLD COUNT W/AUTO DIFF 2020-04-11 Dinakar, Satis h Cheondoism 10:30:00 [facility] PROTHROMBIN TIME WITH INR 2020-04-11 Dinakar, Krishna Method ist 10:30:00 [facility] BASIC METABOLIC PANEL 2020-04-11 Dinakar, Krishna Cheondoism 10:00:00 [facility] MAGNESIUM LEVEL 2020-04-11 Dinakar, Krishna Cheondoism 10:00:00 [facility] HEPATIC FUNCTION PANEL 2020-04-11 Dinakar, Krishna Cheondoism 10:00:00 [facility] PHOSPHORUS LEVEL 2020-04-11 Dinakar, Krishna Cheondoism 10:00:00 [facility] ESTIMATED GFR 2020-04-11 Dinakar, Krishna Cheondoism 10:00:00 [facility] XR ABDOMEN 1 VW PORTABLE 2020-04-10 FaIlene gates Metho dist 20:20:49 Hospital US ABDOMINAL LIMITED 2020-04-10 Ilene Berkowitz Cheondoism 18:30:00 [facility] HC COMPLETE BLD COUNT W/AUTO DIFF 2020-04-10 Dinakar, Satis h Che[facility]ism 11:20:00 [facility] PROTHROMBIN TIME WITH INR 2020-04-10 Dinakar, Krishna Method ist 11:20:00 [facility] BASIC METABOLIC PANEL 2020-04-10 Dinakar, Krishna Cheondoism 10:00:00 [facility] MAGNESIUM LEVEL 2020-04-10 Dinakar, Krishna Cheondoism 10:00:00 [facility] HEPATIC FUNCTION PANEL 2020-04-10 Dinakar, Krishna Cheondoism 10:00:00 [facility] PHOSPHORUS LEVEL 2020-04-10 Dinakar, Krishna Cheondoism 10:00:00 [facility] ESTIMATED GFR 2020-04-10 Dinakar, Krishna Cheondoism 10:00:00 [facility] BASIC METABOLIC PANEL 2020-04-09 Dinakar, Krishna Cheondoism 12:03:00 [facility] HC COMPLETE BLD COUNT W/AUTO DIFF 2020-04-09 Dinakar, Satis brittany Cheondoism 12:03:00 [facility] MAGNESIUM LEVEL 2020-04-09 Dinakar, Krishna Cheondoism 12:03:00 [facility] HEPATIC FUNCTION PANEL 2020-04-09 Dinakar, Krishna Cheondoism 12:03:00 [facility] PROTHROMBIN TIME WITH INR 2020-04-09 Dinakar, Krishna Method ist 12:03:00 [facility] PHOSPHORUS LEVEL 2020-04-09 Dinakar, Krishna Cheondoism 12:03:00 [facility] ESTIMATED GFR 2020-04-09 Dinakar, Krishna Cheondoism 12:03:00 [facility] CBC WITH PLATELET AND DIFFERENTIAL 2020-04-08 Dinakar, Elisabeth valdovinos [facility]ism 11:20:00 [facility] PROTHROMBIN TIME WITH INR 2020-04-08 Dinakar, Krishna Method ist 11:20:00 [facility] MANUAL DIFFERENTIAL 2020-04-08 Dinakar, Krishna Cheondoism 11:20:00 [facility] BASIC METABOLIC PANEL 2020-04-08 Dinakar, Krishna Cheondoism 10:00:00 [facility] MAGNESIUM LEVEL 2020-04-08 Dinakar, Krishna Cheondoism 10:00:00 [facility] HEPATIC FUNCTION PANEL 2020-04-08 Dinakar, Krishna Cheondoism 10:00:00 [facility] PHOSPHORUS LEVEL 2020-04-08 Dinakar, Krishna Cheondoism 10:00:00 [facility] ESTIMATED GFR 2020-04-08 Dinakar, Krishna Cheondoism 10:00:00 [facility] HC COMPLETE BLD COUNT W/AUTO DIFF 2020-04-07 Martha Burns or Cheondoism 07:35:00 Hospital BASIC METABOLIC PANEL 2020-04-07 Donald Burns [facility]ism 07:35:00 Hospital HEPATIC FUNCTION PANEL 2020-04-07 Donald Burns t 07:35:00 Hospital MAGNESIUM LEVEL 2020-04-07 Donald Burns Che[facility]ism 07:35:00 Hospital PROTHROMBIN TIME WITH INR 2020-04-07 Donald Burns Metho dist 07:35:00 Hospital ESTIMATED GFR 2020-04-07 Donald Burns Che[facility]ism 07:35:00 Hospital HC COMPLETE BLD COUNT W/AUTO DIFF 2020-04-06 Burns, Hect or Cheondoism 10:00:00 Hospital BASIC METABOLIC PANEL 2020-04-06 Burns, Donald Cheondoism 10:00:00 Hospital HEPATIC FUNCTION PANEL 2020-04-06 Burns, Donald Methodis t 10:00:00 Hospital MAGNESIUM LEVEL 2020-04-06 Burns, Donald Cheondoism 10:00:00 Hospital PROTHROMBIN TIME WITH INR 2020-04-06 Burns, Donald Metho dist 10:00:00 Hospital ESTIMATED GFR 2020-04-06 Burns, Donald Cheondoism 10:00:00 Hospital HC COMPLETE BLD COUNT W/AUTO DIFF 2020-04-05 Burns, Hect or Cheondoism 11:00:00 Hospital BASIC METABOLIC PANEL 2020-04-05 Burns, Donald Cheondoism 11:00:00 Hospital HEPATIC FUNCTION PANEL 2020-04-05 Burns, Donald Methodis t 11:00:00 Hospital MAGNESIUM LEVEL 2020-04-05 Burns, Donald Cheondoism 11:00:00 Hospital PROTHROMBIN TIME WITH INR 2020-04-05 Burns, Donald Metho dist 11:00:00 Hospital ESTIMATED GFR 2020-04-05 Burns, Donald Cheondoism 11:00:00 Hospital HC COMPLETE BLD COUNT W/AUTO DIFF 2020-04-04 Burns, Hect or Cheondoism 10:05:00 Hospital BASIC METABOLIC PANEL 2020-04-04 Burns, Donald Cheondoism 10:05:00 Hospital HEPATIC FUNCTION PANEL 2020-04-04 Burns, Donald Methodis t 10:05:00 Hospital MAGNESIUM LEVEL 2020-04-04 Burns, Donald Cheondoism 10:05:00 Hospital PROTHROMBIN TIME WITH INR 2020-04-04 Burns, Donald Metho dist 10:05:00 Hospital ESTIMATED GFR 2020-04-04 Burns, Donald Cheondoism 10:05:00 Hospital HC COMPLETE BLD COUNT W/AUTO DIFF 2020-04-03 Burns Hect or Cheondoism 11:40:00 Hospital BASIC METABOLIC PANEL 2020-04-03 Burns, Donald Cheondoism 11:40:00 Hospital HEPATIC FUNCTION PANEL 2020-04-03 Doanld Burns Methodis t 11:40:00 Hospital MAGNESIUM LEVEL 2020-04-03 Donald Burns [facility] 11:40:00 Hospital PHOSPHORUS LEVEL 2020-04-03 Girma Burnstor Cheondoism 11:40:00 Hospital PROTHROMBIN TIME WITH INR 2020-04-03 Girma Burnstor Metho dist 11:40:00 Hospital ESTIMATED GFR 2020-04-03 Donald Burns [facility] 11:40:00 Hospital TTE COMPLETE, W CONTRAST, W 2020-04-03 Ilene Berkowitz Ri thodist DOPPLER ([id number]) 04:00:00 Hospital AEROBIC CULTURE 2020-04-02 Nuria Dennis 16:39:00 Hospital ANAEROBIC CULTURE 2020-04-02 Nuria Dennis 16:39:00 Hospital GRAM STAIN 2020-04-02 Nuria Dennis 16:39:00 Hospital PROTEIN, MISC FLUID 2020-04-02 Ilene Berkowitz 16:39:00 Hospital ALBUMIN, MISC FLUID 2020-04-02 Ilene Berkowitz [facility] 16:39:00 Hospital CELL COUNT AND DIFFERENTIAL, BODY 2020-04-02 Nuria Dennis FLUID 16:38:00 Hospital BODY FLUID CONSULT 2020-04-02 Nuria Dennis 16:38:00 [facility] US ABDOMINAL PARACENTESIS IMAGING 2020-04-02 Nuria Dennis 16:35:00 Hospital CBC WITH PLATELET AND DIFFERENTIAL 2020-04-02 Girma Burns [facility] 10:40:00 Hospital BASIC METABOLIC PANEL 2020-04-02 Donald Burns [facility] 10:40:00 Hospital HEPATIC FUNCTION PANEL 2020-04-02 Donald Burns Methodis t 10:40:00 Hospital MAGNESIUM LEVEL 2020-04-02 Girma Burnstor [facility]ism 10:40:00 Hospital PHOSPHORUS LEVEL 2020-04-02 Girma Burnstor [facility] 10:40:00 Hospital PROTHROMBIN TIME WITH INR 2020-04-02 Donald Burns Metho dist 10:40:00 Hospital B NATRIURETIC PEPTIDE 2020-04-02 Donald Burns [facility] 10:40:00 Hospital ESTIMATED GFR 2020-04-02 Donald Burns [facility] 10:40:00 Hospital MANUAL DIFFERENTIAL 2020-04-02 Donald Burns [facility] 10:40:00 Hospital FIBRINOGEN 2020-04-01 Cecy Martinez [facility]ism 21:00:00 [facility] HC COMPLETE BLD COUNT W/AUTO DIFF 2020-04-01 Martha Burns or Cheondoism 11:00:00 Hospital BASIC METABOLIC PANEL 2020-04-01 Donald Burns [facility] 11:00:00 Hospital HEPATIC FUNCTION PANEL 2020-04-01 Donald Burns t 11:00:00 Hospital MAGNESIUM LEVEL 2020-04-01 Donald Burns [facility] 11:00:00 Hospital PHOSPHORUS LEVEL 2020-04-01 Donald Burns [facility] 11:00:00 Hospital PROTHROMBIN TIME WITH INR 2020-04-01 Donald Burns Metho dist 11:00:00 Hospital HEMOGLOBIN A1C 2020-04-01 Donald Burns [facility] 11:00:00 Hospital THYROID STIMULATING HORMONE 2020-04-01 Donald Burns Met hodist 11:00:00 Hospital T4 2020-04-01 Donald Burns [facility] 11:00:00 Hospital B NATRIURETIC PEPTIDE 2020-04-01 Donald Burns [facility] 11:00:00 Hospital ALPHA FETOPROTEIN 2020-04-01 Donald Burns [facility] 11:00:00 Hospital ESTIMATED GFR 2020-04-01 Donald Burns [facility] 11:00:00 Hospital URINALYSIS, AUTOMATED WITH 2020-04-01 Donald Burns Meth odist MICROSCOPY 08:50:00 Hospital TROPONIN 2020-04-01 Ronna [facility]ondoism 07:20:00 [facility] CT ABDOMEN PELVIS WO CONTRAST 2020-04-01 Dawn Figueredo thodist 06:53:40 [facility] US ABDOMINAL DOPPLER 2020-04-01 Dawn Figueredo Cheondoism 06:10:00 [facility] US ABDOMEN COMPLETE 2020-04-01 Dawn Figueredo 05:30:00 [facility] COVID-19 QUALITATIVE RT-PCR 2020-04-01 Dawn Figueredo odrosanna 04:33:00 [facility] PROTHROMBIN TIME WITH INR 2020-04-01 Dawn Figueredo ist 04:26:00 [facility] PARTIAL THROMBOPLASTIN TIME (PTT) 2020-04-01 Sharlene Figueredo 04:26:00 [facility] LIPASE LEVEL 2020-04-01 Dawn Figueredo 04:26:00 [facility] TROPONIN 2020-04-01 Morocho, Ronna-Karen Cheondoism 04:26:00 [facility] HC COMPLETE BLD COUNT W/AUTO DIFF 2020-04-01 Morocho, Ronna-A nh Cheondoism 03:12:00 [facility] COMPREHENSIVE METABOLIC PANEL 2020-04-01 Morocho, Ronna-Karen M ethodist 03:12:00 [facility] TROPONIN 2020-04-01 Morocho, Ronna-Karen Cheondoism 03:12:00 [facility] B NATRIURETIC PEPTIDE 2020-04-01 Morocho, Ronna-Karen Cheondoism 03:12:00 [facility] ESTIMATED GFR 2020-04-01 Morocho, Ronna-Karen Cheondoism 03:12:00 [facility] US DUPLEX VENOUS LOWER EXTREMITY 2020-04-01 Dawn Figueredo BILATERAL 02:50:00 [facility] XR CHEST 1 VW PORTABLE 2020-04-01 Dawn Figueredo 02:04:53 [facility] ECG 12-LEAD 2020-04-01 Morocho, Ronna-Karen Cheondoism 00:22:47 [facility] Plan of Care Planned Activity Planned Date Details Comments Source Future Scheduled Test 65+ PNEUMOCOCCAL Me [facility] VACCINE (1 of 4 - PCV13) [code = 65+ PNEUMOCOCCAL VACCINE (1 of 4 - PCV13)] Future Scheduled Test COVID-19 VACCINE (1) [facility] [code = COVID-19 VACCINE (1)] Future Scheduled Test COLONOSCOPY SCREENING [facility] [code = COLONOSCOPY SCREENING] Future Scheduled Test SHINGLES VACCINES (#1) [facility] [code = SHINGLES VACCINES (#1)] Future Scheduled Test INFLUENZA VACCINE [code [facility] = INFLUENZA VACCINE] Encounters Start End Encounter Admission Attending Care Care Encounter Source Date/Time Date/Time Type Type Clinicians Facility Department ID 2020-11-29 Inpatient ER LYDIA, KARENA Gastro [id number] [facility] 18:34:02 CHIMKAMA 2021-06-22 2021-06-22 Outpatient SAHARIA, [facility] [id number] [facility] 00:00:00 00:00:00 MARTI 551 [facility] 2021-05-27 2021-06-18 Inpatient DEVORAH, [facility] [id number] [facility] 00:00:00 00:00:00 ETELVINA 952 [facility] 2021-06-10 2021-06-10 Outpatient RUDDY HENNESSY [facility] [id number] [facility] 00:00:00 00:00:00 162 Method i 2021-05-13 2021-05-27 Inpatient SUMAYARIA, [facility] [id number] [facility] 00:00:00 00:00:00 MARTI 324 Method i 2021-05-05 2021-05-13 Inpatient BLAKE, [facility] [id number] [facility] 00:00:00 00:00:00 LORRAINE 861 Method i 2021-02-25 2021-05-05 Inpatient SUMAYARIA, [facility] [id number] 323 [facility] 00:00:00 00:00:00 MARTI 082 Method i 2021-02-26 2021-02-26 Outpatient GALAKIKO, [facility] [id number] 161 [facility] 00:00:00 00:00:00 SEGUNDO 869 Method i 2021-02-24 2021-02-24 Laboratory Only, Adc Test [place] 1.2.840. 114 [id number] [facility] 13:45:00 14:00:00 Only Iker Pisano 350.1.13.10 [facility] 4.2.7.2.686 [facility] [phone] [facility] [address] 2021-02-19 2021-02-19 Outpatient GALATI, [facility] [id number] 836 [facility] 00:00:00 00:00:00 SEGUNDO 430 Method i 2021-02-10 2021-02-10 Outpatient AMOL, [facility] [id number] 400 [facility] 00:00:00 00:00:00 AUBREY [address] 2021-01-19 2021-01-24 Inpatient NURIA DENNIS [facility] [id number] [facility] 00:00:00 00:00:[address] 2021-01-09 2021-01-09 Outpatient GALATI, [facility] [id number] 059 [facility] 00:00:00 00:00:00 SEGUNDO [address] 2021-01-01 2021-01-01 Outpatient GALATI, [facility] [id number] 558 [facility] 00:00:00 00:00:00 SEGUNDO [address] 2020-12-19 2020-12-19 Outpatient GALATI, [facility] [id number] 394 [facility] 00:00:00 00:00:00 SEGUNDO [address] 2020-12-16 2020-12-16 Outpatient AMOL, [facility] [id number] 149 [facility] 00:00:00 00:00:00 AUBREY [address] 2020-12-12 2020-12-12 Outpatient GALATI, [facility] [id number] 187 [facility] 00:00:00 00:00:00 SEGUNDO [address] 2020-12-02 2020-12-02 Outpatient GALATI, [facility] [id number] 189 [facility] 00:00:00 00:00:00 SEGUNDO [address] 2020-11-19 2020-11-19 Outpatient AMOL, [facility] [id number] 515 [facility] 00:00:00 00:00:00 AUBREY [address] 2020-11-13 2020-11-13 Outpatient AMOL, [facility] [id number] 760 [facility] 00:00:00 00:00:00 AUBREY [address] 2020-10-14 2020-10-22 Inpatient RONALDO [facility] [id number] 24 [facility] 00:00:00 00:00:00 RADHA, [address] 2020-10-07 2020-10-07 Outpatient HOPSON, [facility] [id number] 346 [facility] 00:00:00 00:00:00 SCOTTIE [address] 2020-10-02 2020-10-02 Outpatient AMOL, [facility] [id number] 296 [facility] 00:00:00 00:00:00 AUBREY [address] 2020-10-01 2020-10-01 Emergency MARTINES, [facility] [id number] 219 [facility] 00:00:00 00:00:00 SURESH [address] 2020-09-23 2020-09-23 Telephone Alli, 1.2.840.1 [id number] [facility] 00:00:00 00:00:[address] [place] [address] 3.430.2.7 Hospit a .3.388281 l .8 2020-09-19 2020-09-19 Office Amol, 1.2.840.8 [id number] [facility] 10:10:33 10:57:26 Visit Aubrey 25109.1.[address] Wilfredo 3.430.2.7 Hospit a .3.641108 l .8 2020-09-19 2020-09-19 Travel 1.2.840.1 1.2.581.782 2842 [id number] [facility] 00:00:00 00:00:[address] 3.430.2.7 0.2.7.3.698 Ho spita .3.310521 084.8 l .8 2020-08-28 2020-09-01 Hospital [facility], 1.2.840.1 [id number] [facility] 00:00:00 00:00:00 Encounter DONALD 92940.1.1 [address] .3.347294 .8 2020-08-30 2020-08-30 Surgery Hu, 1.2.840.1 [id number] [facility] 14:02:00 15:02:00 Ruddy Will [address]85.1.[address] 3.430.2.7 Hospit a .3.929277 l .8 2020-08-30 2020-08-30 Anesthesia Fang, 1.2.840.1 [id number] 21 [id number] [facility] 13:18:00 13:51:00 [place] [address].1.[address] 3.430.2.7 Hospit a .3.913137 l .8 2020-08-29 2020-08-29 Documentat Mina, 1.2.840.1 [id number] 21 [id number] [facility] 00:00:00 00:00:00 ion Romaine 18807.1.[address] Zen 3.430.2.7 Hospit a .3.799700 l .8 2020-08-22 2020-08-22 Jovanny Carmichael, 1.2.840.4 [id number] [facility] 10:02:06 15:56:55 Consult Aubrey 63741.1.[address] Wilfredo 3.430.2.7 Hospit a .3.898275 l .8 2020-08-21 2020-08-21 Travel 1.2.840.1 1.2.196.401 9783 [id number] [facility] 00:00:00 00:00:[address] 3.430.2.7 0.2.7.3.698 Ho spita .3.377459 084.8 l .8 2020-08-20 2020-08-20 Wil Carmichael, 1.2.840.6 [id number] [facility] 00:00:00 00:00:00 Only Aubrey 90768.1.[address] Wilfredo 3.430.2.7 Hospit a .3.422947 l .8 2020-08-20 2020-08-20 Wil Carmichael, 1.2.840.9 [id number] [facility] 00:00:00 00:00:00 Only Aubrey 96801.1.[address] Wilfredo 3.430.2.7 Hospit a .3.636695 l .8 2020-08-15 2020-08-15 Wil Canales 1.2.840.1 [id number] 8914 [facility] 00:00:00 00:00:00 Only Segundo Bradley [address]5580.1.[address] 3.430.2.7 Hospit a .3.209147 l .8 2020-08-01 2020-08-11 [facility], 1.2.840.1 [id number] [id number] [facility] 00:00:00 00:00:00 Encounter KRISHNA 06384.1.1 [address] .3.686248 .8 2020-08-08 2020-08-08 Documentat Delcano, 1.2.840.1 [id number] 21 [id number] [facility] 00:00:00 00:00:00 ion Romaine 76404.1.[address] Zen 3.430.2.7 Hospit a .3.752848 l .8 2020-08-08 2020-08-08 Orders [facility], 1.2.840.1 [id number] Method[facility] 00:00:00 00:00:00 Only Segundo UreñaShelby 63598.1.[address] 3.430.2.7 Hospit a .3.311465 l .8 2020-08-07 2020-08-07 [facility] 1.2.840.1 [id number] 21 [id number] Methodi 00:00:00 00:00:00 ion Romaine 84400.1.[address] Zen 3.430.2.7 Hospit a .3.641238 l .8 2020-08-05 2020-08-05 [facility], 1.2.840.1 [id number] 21 [id number] [facility] 00:00:00 00:00:00 ion Romaine 09105.1.[address] Zen 3.430.2.7 Hospit a .3.816325 l .8 2020-08-04 2020-08-[address] [facility], 1.2.840.1 [id number] 76558 [facility] 00:00:00 00:00:00 Encounter SEGUNDO 22271.1.1 [address] .3.573938 .8 2020-08-01 2020-08-01 Orders Galati, 1.2.840.1 [id number] [facility] 00:00:00 00:00:00 Only Segundo Bradley 22114.1.[address] 3.430.2.7 Hospit a .3.908073 l .8 2020-07-31 2020-07-31 Travel 1.2.840.1 1.2.270.453 1107 [id number] [facility] 00:00:00 00:00:[address] 3.430.2.7 0.2.7.3.698 Ho spita .3.482421 084.8 l .8 2020-07-31 2020-07-31 Transcribe Galati, 1.2.840.1 [id number] 035 [id number] [facility] 00:00:00 00:00:00 Orders Segundo Bradley 54800.1.[address] 3.430.2.7 Hospit a .3.421394 l .8 2020-05-08 2020-05-16 [facility] Ghazala Garciaalo 1.2.840.1 [id number] Methodi 15:04:00 17:19:00 Krishan Fontaine [address]894.1.[address] Burns, Donald 3.430.2.7 Hospita .3.817683 l .8 2020-05-16 2020-05-16 Documentat Fauria, 1.2.840.1 [id number] 792 [id number] [facility] 00:00:00 00:00:00 ion Ilene 71635.1.[address] 3.430.2.7 Hospit a .3.819730 l .8 2020-05-16 2020-05-16 Telephone Mina, 1.2.840.1 [id number] [id number] [facility] 00:00:00 00:00:[address] Zen 3.430.2.7 Hospit a .3.770071 l .8 2020-05-15 2020-05-15 Documentat Mina, 1.2.840.1 [id number] 21 [id number] [facility] 00:00:00 00:00:00 ion Romaine 44193.1.[address] Zen 3.430.2.7 Hospit a .3.648293 l .8 2020-05-12 2020-05-12 Surgery [facility], 1.2.840.1 [id number] 981 [id number] Methodi 20:05:00 21:05:[address] 3.430.2.7 Hospit a .3.645129 l .8 2020-05-12 2020-05-12 Telephone Mina, 1.2.840.1 [id number] 976 [id number] [facility] 00:00:00 00:00:[address] Zen 3.430.2.7 Hospit a .3.466954 l .8 2020-05-12 2020-05-12 Telephone Sergeo, 1.2.840.1 [id number] [facility] 00:00:00 00:00:[address] Zen 3.430.2.7 Hospit a .3.672421 l .8 2020-05-12 2020-05-12 Telephone De Oliveira, 1.2.840.1 [id number] 2099 [id number] [facility] 00:00:00 00:00:[address] 3.430.2.7 Hospit a .3.465373 l .8 2020-05-08 2020-05-08 Travel 1.2.840.1 1.2.704.131 4351 [id number] [facility] 00:00:00 00:00:[address] 3.430.2.7 0.2.7.3.698 sherrieta .3.749543 084.8 l .8 2020-03-31 2020-04-14 [facility] 1.2.840.1 10 [id number] Methodi 18:34:00 16:38:00 Donald Gallardo 12962.1.[address] [place] 3.430.2.7 Krishna Arita .3.034992 l .8 2020-01-04 2020-01-04 Urgent Provider, [facility] [[email or web address]] 1.2.390.308 [id number] 5431 11:30:05 11:50:05 Care [facility] 350.1.13.10 Care [place] 4.2.7.2.686 Professio [phone] nal [address] 2019-12-25 2019-12-25 Urgent Provider, [facility] [[email or web address]] 1.2.617.161 7209 3230 17:09:55 18:06:32 Care [facility] 350.1.13.10 Care [place] 4.2.7.2.686 Professio [phone] nal 0[address] 2018-05-01 2018-05-01 [facility] [address] 15:00:00 15:00:00 [facility] ent Clinics Results Test Description Test Time Test Comments Results Result Comments Source SARS-CoV-2 (COVID-19) RNA [Presence] in Respiratory sp ecimen by 2021-06-16 18:46:50 MARC with probe detection Test Item Value Reference Range Interpretation Comme nts SARS-CoV-2 (COVID-19) RNA [Presence] in Respiratory specimen by Not detected MARC with probe detection (test code = 81036-4) Whether patient is employed in a healthcare setting (test code = Un known 11442-4) Whether the patient has symptoms related to condition of interest U nknown (test code = 00682-0) Whether the patient was hospitalized for condition of interest Unkn own (test code = 39236-5) Whether the patient was admitted to intensive care unit (ICU) for U nknown condition of interest (test code = 86343-0) Whether patient resides in a congregate care setting (test code = U nknown 24467-5) status (test code = 39563-4) Unknown Date and time of symptom onset (test code = 77211-5) Unknown SARS-CoV-2 (COVID-19) RNA [Presence] in Respiratory specimen by MARC with probe axsraisaf7506-62-88 22:07:05 Test Item Value Reference Range Interpretation Comments SARS-CoV-2 (COVID-19) RNA Not detected [Presence] in Respiratory specimen by MARC with probe detection (test code = 08536-6) Whether patient is employed in a Unknown healthcare setting (test code = 08623-6) Whether the patient has symptoms Unknown related to condition of interest (test code = 45952-0) Whether the patient was Unknown hospitalized for condition of interest (test code = 25000-2) Whether the patient was admitted Unknown to intensive care unit (ICU) for condition of interest (test code = 19593-0) Whether patient resides in a Unknown congregate care setting (test code = 82709-6) status (test code = Unknown 39861-4) Date and time of symptom onset Unknown (test code = 17229-0) SARS-CoV-2 (COVID-19) RNA [Presence] in Respiratory specimen by MARC with probe ivuvxkpco5751-49-61 16:57:41 Test Item Value Reference Range Interpretation Comments SARS-CoV-2 (COVID-19) RNA Not detected [Presence] in Respiratory specimen by MARC with probe detection (test code = 62351-1) Whether patient is employed in a Unknown healthcare setting (test code = 84445-7) Whether the patient has symptoms Unknown related to condition of interest (test code = 37448-0) Whether the patient was Unknown hospitalized for condition of interest (test code = 80542-0) Whether the patient was admitted Unknown to intensive care unit (ICU) for condition of interest (test code = 96371-0) Whether patient resides in a Unknown congregate care setting (test code = 32796-4) status (test code = Unknown 30877-6) Date and time of symptom onset Unknown (test code = 09296-6) SARS-CoV-2 (COVID-19) RNA [Presence] in Respiratory specimen by MARC with probe kxuexcowk9490-36-95 22:16:41 Test Item Value Reference Range Interpretation Comments SARS-CoV-2 (COVID-19) RNA Not detected Not-Detected [Presence] in Respiratory specimen by MARC with probe detection (test code = 26491-0) Whether patient is employed in a healthcare setting (test code = 07960-0) Whether the patient has symptoms related to condition of interest (test code = 22665-5) Patient was hospitalized because of this condition (test code = 29763-8) Whether the patient was admitted to intensive care unit (ICU) for condition of interest (test code = 08891-6) Whether patient resides in a congregate care setting (test code = 46659-6) SARS-CoV-2 (COVID-19) RNA [Presence] in Respiratory specimen by MARC with probe ukzhdogoc6029-93-85 11:41:41 Test Item Value Reference Range Interpretation Comments SARS-CoV-2 (COVID-19) RNA Not detected Not-Detected [Presence] in Respiratory specimen by MARC with probe detection (test code = 06876-9) Whether patient is employed in a healthcare setting (test code = 26856-1) Whether the patient has symptoms related to condition of interest (test code = 10453-5) Patient was hospitalized because of this condition (test code = 38895-9) Whether the patient was admitted to intensive care unit (ICU) for condition of interest (test code = 90292-5) Whether patient resides in a congregate care setting (test code = 99698-0) SARS-CoV-2 (COVID-19) RNA [Presence] in Respiratory specimen by MARC with probe tgfnwmsrm7038-10-78 13:59:05 Test Item Value Reference Range Interpretation Comments SARS-CoV-2 (COVID-19) RNA Not detected Not-Detected [Presence] in Respiratory specimen by MARC with probe detection (test code = 26398-2) Whether patient is employed in a healthcare setting (test code = 65140-5) Whether the patient has symptoms related to condition of interest (test code = 54428-2) Patient was hospitalized because of this condition (test code = 77993-3) Whether the patient was admitted to intensive care unit (ICU) for condition of interest (test code = 41058-4) Whether patient resides in a congregate care setting (test code = 99874-3) SARS-CoV-2 (COVID-19) RNA [Presence] in Respiratory specimen by MARC with probe keyhkphyt0232-20-19 14:53:01 Test Item Value Reference Range Interpretation Comments SARS-CoV-2 (COVID-19) RNA Not detected Not-Detected [Presence] in Respiratory specimen by MARC with probe detection (test code = 44228-6) Whether patient is employed in a healthcare setting (test code = 20078-4) Whether the patient has symptoms related to condition of interest (test code = 97129-7) Patient was hospitalized because of this condition (test code = 11714-1) Whether the patient was admitted to intensive care unit (ICU) for condition of interest (test code = 54690-8) Whether patient resides in a congregate care setting (test code = 17020-2) SARS-CoV-2 (COVID-19) RNA [Presence] in Respiratory specimen by MARC with probe inbaiifzp5092-55-18 21:09:55 Test Item Value Reference Range Interpretation Comments SARS-CoV-2 (COVID-19) RNA Not detected Not-Detected [Presence] in Respiratory specimen by MARC with probe detection (test code = 28139-1) Whether patient is employed in a healthcare setting (test code = 37810-6) Whether the patient has symptoms related to condition of interest (test code = 29803-5) Patient was hospitalized because of this condition (test code = 74918-9) Whether the patient was admitted to intensive care unit (ICU) for condition of interest (test code = 58956-5) Whether patient resides in a congregate care setting (test code = 01793-0) SARS-CoV-2 (COVID-19) RNA [Presence] in Respiratory specimen by MARC with probe jmitguecc2124-16-83 04:07:49 Test Item Value Reference Range Interpretation Comments SARS-CoV-2 (COVID-19) RNA Not detected Not-Detected [Presence] in Respiratory specimen by MARC with probe detection (test code = 68038-6) Whether patient is employed in a healthcare setting (test code = 80392-5) Whether the patient has symptoms related to condition of interest (test code = 71767-9) Patient was hospitalized because of this condition (test code = 76339-7) Whether the patient was admitted to intensive care unit (ICU) for condition of interest (test code = 82212-7) Whether patient resides in a congregate care setting (test code = 06931-9) SARS-CoV-2 (COVID-19) RNA [Presence] in Respiratory specimen by MARC with probe zpgmvxlvp3290-26-02 15:52:14 Test Item Value Reference Range Interpretation Comments SARS-CoV-2 (COVID-19) RNA Not detected Not-Detected [Presence] in Respiratory specimen by MARC with probe detection (test code = 65685-3) Whether patient is employed in a healthcare setting (test code = 75349-3) Whether the patient has symptoms related to condition of interest (test code = 64627-6) Patient was hospitalized because of this condition (test code = 07231-1) Whether the patient was admitted to intensive care unit (ICU) for condition of interest (test code = 84003-1) Whether patient resides in a congregate care setting (test code = 78342-0) SARS-CoV-2 (COVID-19) RNA [Presence] in Respiratory specimen by MARC with probe nhyewdohl7518-02-12 09:56:56 Test Item Value Reference Range Interpretation Comments SARS-CoV-2 (COVID-19) RNA Not detected Not-Detected [Presence] in Respiratory specimen by MARC with probe detection (test code = 49523-5) Whether patient is employed in a healthcare setting (test code = 99903-9) Whether the patient has symptoms related to condition of interest (test code = 01005-3) Patient was hospitalized because of this condition (test code = 94500-7) Whether the patient was admitted to intensive care unit (ICU) for condition of interest (test code = 60682-7) Whether patient resides in a congregate care setting (test code = 42143-1) SARS-CoV-2 (COVID-19) RNA [Presence] in Respiratory specimen by MARC with probe [id number] 04:03:50 Test Item Value Reference Range Interpretation Comments SARS-CoV-2 (COVID-19) RNA Not detected Not-Detected [Presence] in Respiratory specimen by MARC with probe detection (test code = 40900-6) Whether patient is employed in a healthcare setting (test code = 34933-9) Whether the patient has symptoms related to condition of interest (test code = 34205-3) Patient was hospitalized because of this condition (test code = 70423-5) Whether the patient was admitted to intensive care unit (ICU) for condition of interest (test code = 25949-2) Whether patient resides in a congregate care setting (test code = 03609-6) Transthoracic Echocardiogram Complete, (w Contrast, Strain and 3D if needed) 2020-08-30 21:00:00 Echocardiography Report [address] [address] Pat.Name: ANKIT TOMAS Pat.ID: [id number] .Date: 08/30/2020 Refer.MD: DOUG ALONSO MD, SEGUNDO CANALES MDExam Time: 9:52:00 AM Study Type:Routine Echo Height: 70in Weight: 213lb BSA: 2.15 m2 Age: 12 1950,70Y Sex: MALE BP: 90/55 HR: 53 bpm Sonogrphr: YOMI Santos Pat. Stat.:Inpati ent Room: D1065 Study Status:Final Echo Event ID:[id number] Order ID: [id number] Reason for Study:pre liver transplantProcedures: 2D Echo, Colorflow Doppler, Portable, Intravenous LumasonContrast, Intravenous Saline ContrastRace: C SUMMARY: LV EF is normal.Estimated EF is 65-69%RV systolic function is normal.Delayed contrast appears in the left atrium after 5 cardiac cyclesconsistent with transpulmonary shunting. The shunt is significant. FINDINGS: -LV: LV size is normal. LV EF [...] assuming a mean RAP of 5 mmHg. MEASUREMENTS: 2DParasternal Long [place] Ao An 2 cm LVPWd 0.86 cm Ao Rtd 3 cm Index 1.4 cm/m2 LA Ds4.3 cm IVSd 1.1 cm RWT 0.32 LVIDd [...] LVOT CI 2.9 l/m/m2 LVOT CO 6.3 l/minLVOT Stroke Vol & Cardiac Out HR 54 bpm Signed 08/30/2020 04:00 PMAndrew Irizarry M.D.Interface, Radiology Results In - 08/30/2020 4:00 PM CDT Echocar diography Report [address] [address], [place] [address] Pat.Name: SRIKANTH TOMAS Pat.ID: [id number] .Date: 08/30/2020 Refer.MD: DOUG ALONSO MD, SEGUNDO CANLAES MDExam Time: 9:52:00 AM Study Type:Routine Echo Height: 70in Weight: 213lb BSA: 2.15 m2 Age: 12 1950,70Y Sex: MALE BP: 90/55 HR: 53 bpm Sonogrphr: YOMI Santos Pat. Stat.:Inpatient Room: D1065 Study Status:Final Echo Event ID:[id number] Order ID: [id number] Reason for Study:pre liver transplantProcedures: 2D Echo, Colorflow Doppler, Portable, Intravenous LumasonContrast, Intravenous Saline ContrastRace: C ---SUMMARY: LV EF is normal.Estimated EF is 65-69%RV systolic function is normal.Delayed contrast appears in the left atrium after 5 cardiac cyclesconsistent with transpulmonary shunting. The shunt is significant. FINDINGS:--------- LV: LV size is normal. LV EF is [...] assuming a mean RAP of 5 mmHg. MEASUREMENTS:----- 2DParasternal Long [place] Ao An 2 cm LVPWd 0.86 cm Ao Rtd 3 cm Index 1.4cm/m2 LA Ds 4.3 cm IVSd 1.1 cm RWT 0.32 LVIDd 5.4 cm Index 2.5 cm/m2 LV Mass 201 g (122- 174) LVIDs 2.4 cm LVM Index 93 g/m2 LV%fs 56 % LA Sng Plane LA Area 29 cm2 (8.8-23.4) LA Vol 115 ml Index 53 ml/m2LA LngAx 6.1 cm LVOT For Flow LVOT 2 cm LVOT Area 3.1 cm2 DOPPLERAV For Flow/LIZETTE AV pkVel 261 cm/s (100-170) AVTVI 56 cm AV mnVel 160 cm/s AVpkAcRt [...] 54 bpm Signed 08/30/2020 04:00 Flavio Irizarry M.D.[facility] RBC, 2 [id number] 20:43:00 Test Item Value Reference Range Interpretation Comments Product name (test code Red Blood Cells -1, = 25) Leukored Unit number (test code = [id number]) Product code (test code [id number] = 3092) Dispense status (test Transfused code = 24) Blood expiration date (test code = 302) Blood type code (test code = 308) Blood type (test code = A POSITIVE 1314) Compatibility (test code Compatible = 6400) Tobi Balderas Abdominal Kzbgmye7199-45-05 05:02:33EXAMINATION: US ABDOMINAL DOPPLER CLINICAL HISTORY: GI [...] heterogeneous echotexture. There is small ascites and cholelithiasis.[facility] 12 [id number] 21:20:43 Test Item Value Reference Range Interpretation Comments Ventricular rate (test code = 253) Atrial rate (test code = 255) HI interval (test code = 266) QRSD interval (test code = 260) QT interval (test code = 264) QTC interval (test code = 265) P axis 1 (test code = 267) QRS axis 1 (test code = 268) T wave axis (test code = 270) EKG impression (test code = 273) [facility] uzbknev4615[facility]76-91 09:11:22 Test Item Value Reference Range Interpretation Comments Urine culture (test code = SEE COMMENT [id number]) [facility] and [id number] 23:06:00 Test Item Value Reference Range Interpretation Comments ABO grouping (test code = 883-9) A Rh type (test code = 33731-7) POS Antibody screen (gel) (test code = NEG 890-4) [facility] [id number] 22:17:31PatelRhoda MD 09/16/2020 10:55 AMCritical CarePerformed by: Rhoda [...] separately and not included in critical care time.[facility] ED Preliminary Interpretation - Not an [id number] 22:17:31PatelRhoda MD 09/16/2020 10:55 [facility] Interpretation - Not an OrderPerformed by: Rhoda Baker MDAuthorized by: Rhoda Baker MD ECG reviewedby ED Physician in the absence of a senior technical recruiter: yes Rate: ECG rate: 72 ECG rate assessment: normal Rhythm: Rhythm: sinus rhythm ST segments: ST segments: NormalT waves: T waves: non-specific Comments: No STEMIMethodist HospitalParathyroid [id number] 19:22:00 Test Item Value Reference Range Interpretation Comments PTH (test code = 2731-8) 51 pg/mL 14-64 JUAN (test code = JUAN) RAC (test code = RAC) [facility] TEST [id number] 19:22:00 Test Item Value Reference Range Interpretation Comments ABN test refused (test code = 8251-1) JUAN (test code = JUAN) RAC (test code = RAC) [facility] Abdominal Paracentesis [id number] 23:01:27 ProcedureUltrasound-guided paracentesis. Clinical IndicationAscites. AnesthesiaLidocaine 1%. [...] anesthetic. Using real-time ultrasound guidance, a 5 Tristanian catheter was advanced successfully into the peritoneal [...] of 3000 ml of cloudy yellow ascites. [id number] Interface, Radiology Results - 08/09/2020 6:04 PM [...] anesthetic. Using real-time ultrasound guidance, a 5 Tristanian catheter was advanced successfully into the peritoneal [...] of 3000 ml of cloudy yellow ascites. [facility]-[id number] [facility] lamewgx4691-15-02 02:25:54 Test Item Value Reference Range Interpretation Comments POC glucose (test code = 77000-8) 174 mg/dL 65-99 H Lab Interpretation (test code = Abnormal 27477-6) [facility] Abdominal Ssouquy5613-57-37 23:07:12EXAMINATION: US ABDOMINAL LIMITED HISTORY: 70 years old Male. Abdominal swelling ascites suspected, see if enough fluid for paracentesis. COMPARISON: None available. IMPRESSION: Four-quadrant sonographic survey for ascites is performed. There is a small to moderate volume of ascites, greatest in theright upper and right lower quadrants. [facility]-[id number] Interface, Radiology Results Incoming - 6:10 PM CDT EXAMINATION: US ABDOMINAL LIMITED HISTORY: 70 years old Male. Abdominal swelling ascites suspected, see if enough fluidfor paracentesis.COMPARISON: None available.IMPRESSION: Four-quadrant sonographic survey for ascitesis performed. There is a small to moderate volume of ascites, greatest in the right upper and right lower quadrants.[facility]-[id number] HospitalDirect Katie' (MIRZA)2020-08-06 12:24:00 Test Item Value Reference Range Interpretation Comments Gszj-AwU-D6g Polyspecific (test code = NEG 2585) [facility] 1 Vw Unwwlumt3586-60-42 01:55:54EXAMINATION: XR CHEST 1 VW PORTABLE CLINICAL HISTORY: fever COMPARISON: 05/15/2020 IMPRESSION: Heart and mediastinum stable. Bones are osteopenic. Low lung volumes, with mild perihilar interstitial prominence and no definite consolidation noted. [facility]- [id number] Interface, Radiology Results Incoming - 08/01/2020 8:59 PM CDT EXAMINATION:XR CHEST 1 VW PORTABLECLINICAL HISTORY: feverCOMPARISON: 05/15/2020IMPRESSION:Heart and mediastinumstable. Bones are osteopenic.Low lung volumes, with mild perihilar interstitial prominence and no definite consolidation noted. [facility]-[id number] HospitalBLOOD NQCRTTB6188-00-75 13:28:00 Test Item Value Reference Range Interpretation Comments CULTURE (BEAKER) (test No growth in 5 days code = 1095) HEPATIC FUNCTION [id number] 10:13:00 Test Item Value Reference Range Interpretation [...] (test code = 26 U/L 6-55 347) Fuel Agent ID - DBSpecimen slightly ictericBASIC METABOLIC [id number] 05:31:00 Test Item Value Reference Range Interpretation [...] 358) GLUCOSE RANDOM 134 mg/dL 70-105 H (BEAKER) (test code = 652) CALCIUM (BEAKER) 7.7 mg/dL 8.4-10.2 L (test code = 697) EGFR (BEAKER) (test 56 mL/min/1.73 ESTIMA ALMITA GFR IS code = 1092) sq m NOT ACCURATE CREATININE CLEARANCE IN PREDICTING GLOMERULAR FILTRATION RATE . ESTIMATED GFR I S NOT APPLICABLE FOR DIALYSIS PATIEN TS. Fuel Agent ID - DBSpecimen slightly ictericCBC W/PLT COUNT & AUTO DIFFERENTIAL 2020-06-27 05:10:00 Test Item Value Reference Range Interpretation [...] 0-1 PERCENT (BEAKER) (test code = 2801) COMPREHENSIVE METABOLIC [id number] 00:14:00 Test Item Value Reference Range Interpretation [...] S NOT APPLICABLE FOR DIALYSIS PATIEN TS. Fuel Agent ID - DBSpecimen moderately igxjamwNGGQEGJOH0448-34-69 00:10:00 Test Item Value Reference Range Interpretation Comments MAGNESIUM (BEAKER) (test code = 1.9 mg/dL 1.6-2.6 627) Fuel Agent ID - [id number] 00:03:00 Test Item Value Reference Range Interpretation Comments AMMONIA (BEAKER) (test code = 348) 60 mol/L 18-72 Fuel Agent ID - [id number] 23:58:00 Test Item Value Reference Range Interpretation Comments PARTIAL THROMBOPLASTIN TIME 36.7 seconds 22.5-36.0 H (BEAKER) (test code = 760) PROTHROMBIN TIME/[id number] 23:57:00 Test Item Value Reference Range Interpretation Comments PROTIME (BEAKER) 16.8 seconds 11.9-14.2 H (test code = 759) INR (MILDRED) (test 1.42 See_Comment [Automat ed message] code = 370) The system Home Inventory S[pecialists generated this result transmitted ref erence range: <=5.90. The reference range was not used to int erpret this result as normal/abnormal . Effective 07/19/2018: PT Reference Range ChangeNew: 11.9-14.2 Previous: 11.7- 14.7RECOMMENDED COUMADIN/WARFARIN INR THERAPY RANGESSTANDARD DOSE: 2.0-3.0 Includes: PROPHYLAXIS for venous thrombosis, systemic embolization; TREATMENT for venous thrombosis and/or pulmonary embolus.HIGH RISK: Target INR is2.5-3.5 for patients wiht mechanical heart valves.POCT-GLUCOSE [id number] 21:39:00 Test Item Value Reference Range Interpretation Comments POC-GLUCOSE METER 131 mg/dL 70-110 H : TESTED A T [facility] 6720 (MILDRED) (test code = LEANNE Rob [facility], 1538) 51016: Fuel Agent/Techni domingo ID = [id number] for Darrius Harmon C1Q class 1 & 2 nbllaldz5483-94-89 21:15:13 Test Item Value Reference Range Interpretation Comments Interpretation (test code Unable to analyze = [id number]) due to high background Case number (test code = [id number]) C1Q class 1 & 2 antibody See link below for (test code = 3544669) PDF Lab Report [facility] resolution full typing by [id number] 20:49:43 Test Item Value Reference Range Interpretation Comments Interpretation (test code = 3748489) Case number (test code = [id number]) Low resolution full typing See link below for by SSO (test code = 1359) PDF Lab Report [facility] Venous Ycgptipzetmo3827-70-88 20:29:30Performing Bryce Avina Anesthesia TypeModerate sedation was administered by the procedure nurse and monitored by the procedure physician for a total cpzc-ib-qlqi sedation time of 118 minutes. Lidocaine 1% [...] moved over a wire. Next, a 5 Tristanian glide catheter was placed proximally within the varix while a 2.8 Tristanian renegade high flow microcatheter was utilized access [...] of dilated perigastric varices as described above. [facility]-[id number] Interface, Radiology Results Incoming - 05/17/2020 3:32 PM CDT Performing RadiologistUnc Health Chathamlaina Avina Anesthesia TypeModerate sedation was administered by the procedure nurse and monitored by the procedure physician for a total ujcp-yy-eiqs sedation time of 118 minutes. Lidocaine 1% [...] fluoroscopy. Using a combination of a 5 Tristanian C2 catheter and a 0.035 inch Glidewire, [...] access was then upsized to a 10 Tristanian vascular sheath. Over a wire, the vascular [...] removed over a wire. Next, a 5 Tristanian glide catheter wasplaced proximally within the varix while a 2.8 Tristanian renegade high flow microcatheter was utilized access the dilated perigastric/gastric veins. Contrast injection confirmed access to the abnormal veins as seen on series 11.Multiple 0.035 inch [place] detachable coils were placed in the proximal [...] dilated perigastric varices as described above.[facility]-[id number] HospitalSpirometry, diffusion, lung volumes, MIPS/KHRI5990-34-61 19:33:19 Test Item Value Reference Range Interpretation Comments FEV1 Pre (test code 3.1 L 2.50-4.08 = 5348) FEV1/FVC % Pre (test 86.15 % 64.13-83.49 code = 5361) MVV Pre (test code = 64.25 L/min 107.25-145.10 5590) FVC Pre (test code = 3.6 L 3.53-5.40 5354) PEF Pre (test code = 8.98 L/s 6.14-10.77 5384) FEF 25-75% Pre (test 4.64 L/s 0.93-4.12 code = 5547) MIP Pre (test code = See_Comment [Autom ated message] 5446) The system Home Inventory S[pecialists generated this result transmitted ref erence range: 29.11 - 136.03 cmH2O. The refe rence range was not u sed to interpret this result as normal/abnor mal. MEP Pre (test code = See_Comment [Autom ated message] 5447) The system Home Inventory S[pecialists generated this result transmitted ref erence range: 83.46 - 180.80 cmH2O. The refe rence range was not u sed to interpret this result as normal/abnor mal. DLCO Pre (test code See_Comment [Automa almita message] = 0059) The system Home Inventory S[pecialists generated this result transmitted ref erence range: 18.41 - 34.34 ml/(min*mmHg). The reference range was not used to int erpret this result as normal/abnormal . DL/VA Pre (test code See_Comment [Autom ated message] = 9943) The system Home Inventory S[pecialists generated this result transmitted ref erence range: 2.77 - 5 .17 ml/(min*mmHg*L) . The reference range was not used to int erpret this result as normal/abnormal . VA SB Pre (test code 4.3 L 5.46-8.19 = 5444) DLCOc Pre (test code See_Comment [Autom ated message] = 5430) The system Home Inventory S[pecialists generated this result transmitted ref erence range: 18.41 - 34.34 ml/(min*mmHg). The reference range was not used to int erpret this result as normal/abnormal . KCOc SB Pre (test See_Comment [Automate d message] code = 5535) The system Home Inventory S[pecialists generated this result transmitted ref erence range: 2.77 - 5 .17 ml/(min*mmHg*L) . The reference range was not used to int erpret this result as normal/abnormal . Hb Pre (test code = g(Hb)/dL 5540) R0.5IN Pre (test See_Comment [Automated message] code = 5514) The system Home Inventory S[pecialists generated this result transmitted ref erence range: [...] See_Comment [Autom ated message] 5507) The system Home Inventory S[pecialists generated this result transmitted ref erence range: 3.06 - 3 .06 cmH2O*s/L. The reference range was not used to int erpret this result as normal/abnormal . sGaw Predicted (test See_Comment [Autom ated message] code = 5528) The system Home Inventory S[pecialists generated this result transmitted ref erence range: [...] 50.9 % Predicted (test code = 5587) [facility] antigen fslqk8406-11-56 00:23:28 Test Item Value Reference Range Interpretation Comments SAB serum ID (test code [id number] = 5866) SAB serum collection D&T 05/12/2020 04:11 PM (test code = 5867) SAB class I antibody Negative assignment (test code = 5870) SAB cPRA class I (test code = 5868) SAB class II antibody Negative assignment (test code = 5871) SAB cPRA class II (test code = 5869) Case number (test code = [id number]) Single antigen beads See link below for (test code = 4604) PDF [facility] 2 [id number] 18:32:44Examination: XR CHEST 2 VW Clinical History: [...] vascularity.1D2RAD_PS04[facility]en WWO Contrast, Pelvis W Qvlftzhq9439-12-24 17:57:35 EXAMINATION: CT ABDOMEN WWO CONTRAST PELVIS [...] is recommended for surveillance.6.Additional findings as above.1D2RAD_PS08[facility]A [facility] thrdbarrfi5348-18-97 21:13:41 Test Item Value Reference Range Interpretation Comments HLA transplant evaluation See link below for (test code = 49882-8) PDF Lab Report Case number (test code = [id number]) [facility] carotid ycfqkl4026-73-98 20:42:00 Vascular Ultrasound Laboratory Carotid Artery Duplex Report [address] [place] [address] For personnel quality assurance auditor purposes, the categorization of the degree of the stenosis of this exam is based on criteria described in the IAC carotid stenosis grading white paper( www.intersocietal.org/Vascular) and Toño, EMichael., Olayinka, CShelbyB., et al. Carotid artery stenosis: ortiz-scale and Doppler US diagnosis--Society of Radiologists in Ultrasound Consensus Conference. Radiology. 2003 Dec; 229(2):340-6. Pat.Name: SRIKANTH TOMAS Lorena.ID: [id number] .Date: 05/12/2020 Refer.MD: SAMM WEBB MDExestelle Time: 2:21:00 PM Study Type:Carotid Height: 70in Weight: 224lb BSA: 2.19 m2 Age: 12 1950,70Y Sex: MALE Sonogrphr: JAYMIE Hooker. Stat.:Inpatient Room: [address] Tape Vol: , CPT - 4: 57021 Echo Event ID:[id number] Order ID: [id number] Reason for Study:Pre-operative forl liver transplant. History [...] 1.08 Signed 05/12/2020 03:42 PMEsvin Manuel MD, RPVIInterprovidence st. mary medical [facility], Radiology Results In - 05/12/2020 3:42 PM CDT Vascular Ultrasound Laboratory Carotid Artery Duplex Report [address] [place] [address] For personnel quality assurance auditor purposes, the categorization of the degreeof the stenosis of this exam is based on criteria described in the IAC carotid stenosis grading white paper( www.intersocietal.org/Vascular) and Yaima Lundberg., Otilio Bhagat, et al. Carotid artery stenosis: ortiz-scale and Doppler US diagnosis--Society of Radiologists in Ultrasound Consensus Conference. Radiology. 2003 Dec; 229(2):340-6. Pat.Name: SRIKANTH TOMAS Pat.ID: [id number] .Date: 05/12/2020 Refer.MD: SAMM WEBB MDExestelle Time: 2:21:00 PM Study Type:Carotid Height: 70in Weight: 224lb BSA: 2.19 m2 Age: 12 1950,70Y Sex: MALE Sonogrphr: Tim Camarillo RVT Pat. Stat.:Inpatient Room: [address] Vol: , CPT - 4: 91300 Echo Event ID:[id number] Order ID: [id number] Reason for Study:Pre-operative forl liver transplant. History [...] EDV 20.4 cm/sLeft ECA Prox ECA Prox JJV679 cm/s ECA Prox EDV 24.8 cm/sLeft ICA [...] 1.08 Signed 05/12/2020 03:42 PMEsvin Manuel MD, VIMethodist HospitalCT Chest Wo Inuguptb3616-79-77 19:14:10Addendum by Ruddy Person MD on 05/13/2020 7:57 AM ADDENDUM #2 Upon rereview, there is a 1.7 cm lipoma in the region of the hepatic flecture of the colon. ADDENDUM #[address] Canales's nurse Myriam 05/12/2020 at 2:34 PM. She verbalized understanding. Addendum by Ruddy Person MD on 05/12/2020 2:34 PM ADDENDUM [...] number was provided to discuss these findings. [facility]-WPHYDPKHm Interface, Radiology Results Incoming - 05/12/2020 2:17 [...] number was provided to discuss these findings.HMRM-WPHYDPKMethodist [facility]2021-03-19 00:32:36EXAMINATION: US HEPATIC HISTORY: 70 years old [...] portal veins. IMPRESSION: 1. Nodular, cirrhotic liver.2. Cholelithiasis.1D2RAD_PS02Hm Interface, Radiology Results Incoming - 05/08/2020 7:35 PM CDTFormatting of this notemight [...] veins. IMPRESSION: 1. Nodular, cirrhotic liver.2. Cholelithiasis.1D2RAD_PS02 [facility] Ehfysor9016-66-32 15:25:18EXAMINATION: XR PANOREX CLINICAL HISTORY: missing teeth rule out infection in setting of hepatic encephalopathy COMPARISON: None IMPRESSION: A single Panorex is provided. There are multiple missingteeth and multiple dental restorations. No worrisome periapical lucency is identified. [facility]-[id number] Interface, Radiology Results Incoming - 04/13/2020 9:28 AM CST EXAMINATION: XR PANOREXCLINICAL HISTORY: missing teeth rule out infe ction in setting of hepatic encephalopathyCOMPARISON: NoneIMPRESSION:A single Panorex is provided.There are multiple missing teeth and multiple dental restorations.No worrisome periapical lucency is identified.[facility]-[id number] [facility] Abdomen 1 Vw Iqjvnzlz6155-31-12 20:24:12EXAM: XR ABDOMEN 1 VW PORTABLE CLINICAL: Nausea vomiting, rule out ileus or constipation COMPARISON: None. IMPRESSION: 1.Nonspecific bowel gas pattern without radiographic evidence of obstruction.2.Mild degenerative changes in the spine. [facility]-[id number] Interface, Radiology Results Incoming 04/10/2020 2:27 PM CST EXAM: XR ABDOMEN 1VW PORTABLECLINICAL: Nausea vomiting, rule out ileus or constipationCOMPARISON: None.IMPRESSION: 1.Nonspecific bowel gas pattern without radiographic evidence of obstruction.2.Mild degenerative changes in the spine.[facility]-[id number] HospitalTransthoracic Echocardiogram Complete, (w Contrast, Strain and 3D if needed)2020-04-03 21:24:00 Echocardiography Report [address]Name: ANKIT TOMAS Pat.ID: [id number] .Date: 04/02/2020 Refer.MD: NURIA DENNIS MD Exam Time: 9:19:00 PM Study Type:Routine Echo Height: 70in Weight: 320lb BSA: 2.55 m2 Age: 12 1950,70Y Sex: MALE BP: 123/56 HR: 81 bpm Sonogrphr: YOMI Montoya /Luz Wells. Stat.:Inpatient Room: [facility] 1074 Study Status:Final Echo Event ID:[id number] Order ID: [id number] Reason for Study:fluid overload rule out cardiac etiolog y, cardiacmurmurProcedures: 2D Echo, Colorflow Doppler, Strain, Portable, [...] systolic pressu re. MEASUREMENTS: -------- 2DParasternal Long [place] Ao An 2 cm LVPWd 1cm Ao [...] MV pkA 105.2 cm/s Signed 04/03/2020 03:24 Helio Ron M.D.Interface, Radiology Results In - 04/03/2020 3:25 PM CST Echocardiography Report [address] [facility], [place] [address], [address]Name: SRIKANTH TOMAS.ID: [id number] .Date: 04/02/2020.MD: NURIA DENNIS MD Exam Time: 9:19:00 PM Study Type:Routine Echo Height: 70in Weight: 320lb BSA: 2.55 m2 Age: 12 1950,70Y Sex: MALE BP: 123/56 HR: 81 bpm Sonogrphr: Bryan Sibley,YOMI /Mikala Keller, MDPat. Stat.:Inpatient Room: [place] [address] Study Status:Final Echo Event ID:[id number] Order ID: [id number] Reason for Study:fluid overload ru le out cardiac etiology, cardiacmurmurProcedures: 2D Echo, Colorflow Doppler, Strain, Portable, IntravenousLumason ContrastRace: D SUMMARY: LV size is normal.Biplane LV EF is 68%. FINDINGS: LV: LV size is normal. Biplane LV ejection fraction= 68% LV EF is normal. Overall wall motion is normal.RV: RV size is normal. RV free wall strain is normal at - 27.8%. RV systolic function is normal.LA: LA volume is moderately enlarged. LA reservior strain is normal at 43.9%.RA: RA size is normal.AO: Aortic root diameter is normal.YOVANY: No pericardial effusion.AV: Mild thickening and calcification of AV leaflets.MV: Mild mitral annular calcification.PV: Pulmonic valve not well seen.TV: No structural TV abnormalities noted.Other: Insufficient TR jet to estimate PA systolic pressure. MEASUREMENTS: 2DParasternal [place] Ao An 2 cm LVPWd 1 cm [...] cm2 (8.8-23.4) LA Vol 111.1 ml Index 43.6ml/m2 LA LngAx 5.9 cm RA Sng Plane [...] MV pkA 105.2 cm/s Signed 04/03/2020 03:24 PMSkalpana Ron M.D.[facility] Abdomen Mrvfbqdq6692-66-06 07:13:36EXAM: US ABDOMEN COMPLETE CLINICAL DATA: distention COMPARISON: CT abdomen/pelvis 04/01/2020 FINDINGS: LIVER: The liver has a nodular contour with coarsened echotexture, consistent with cirrhosis. No focal hepatic lesion is identified. MPV: Doppler evaluation [...] mass, calculi, or hydronephrosis. The left kidney vickie sures 12.3 X 6.7 X 5.0 cm. AORTA: The visualized upper abdominal aorta demonstrates no evidence of ectasia or aneurysm. IVC: The visualized portions of the inferior vena cava are unremarkable. ASCITES: Moderate volume ascites is noted. PLEURAL EFFUSION: There are no pleural effusions. IMPRESSION: Cirrhotic liver morphology with moderate volume ascites. Cholelithiasis without sonographic evidence of cholecystitis. 1D2RAD_PS08Hm Interface, Radiology Results - 04/01/2020 1:16 AM CST EXAM: US ABDOMEN COMPLETECLINICAL DATA: disten tionCOMPARISON: CT abdomen/pelvis 04/01/2020FINDINGS: LIVER: The liver has a nodular contour with coarsened echotexture, consistent with cirrhosis. No focal hepatic lesion is identified.MPV: Doppler evaluation of the portal vein demonstrates normal hepatopetal flow. 0.9 cm.GALLBLADDER: The gallbladder contains multiple stones. No gallbladder wall thickening is identified.CBD: 5.4 mm.PANCREAS: Thevisualized portions of the pancreas are within normal [...] evidence of cholecystitis.1D2RAD_PS08[facility] HospitalCT Abdomen Pelvis Wo Ckoxjpxw2052-83-80 07:02:13Examination: CT ABDOMEN PELVIS WO CONTRAST Clinical [...] evidence for cholecystitis.3. Right inguinal hernia containing ascites.1D2RAD_PS01[facility]Us duplex venous lower cobtzaydf3130-23-44 03:27:00 Vascular Ultrasound Laboratory Lower Extremity Venous Report [address] [place] [address] Pat.Name: SRIKANTH TOMAS Pat.ID: [id number] .Date: 03/31/2020 Refer.MD: PHYSICIAN, EMERGENCY, Exam Time: 8:17:00 PM Study Type:LE Venous Age: 12 1950,70Y Sex: MALE Sonogrphr: BREA Santiago RCS Pat. Stat.:Inpatient Room: [facility] ED E24 Tape Vol: SHANIA, CPT - 4: 84704 Echo Event ID:[id number] Order ID: [id number] Reason for Study:Leg swelling , DVT suspected.Procedures: [...] s Signed 03/31/2020 09:27 Qamar Manuel MD, Abhay, Radiology Results In - 03/31/2020 9:28 PM CST Vascular Ultrasound Laboratory Lower Extremity Venous Report [address] [place] [address], [place] [address] Pat.Name: SRIKANTH TOMAS Pat.ID: [id number] .Date: 03/31/2020 Refer.MD: PHYSICIAN, EMERGENCY, Exestelle Time: 8:17:00 PM Study Type:LE Venous Age: 12 1950,70YSex: MALE Sonogrphr: Jose Burton, BREA, YOMI Pat. Stat.:Inpatient Room: [facility] ED E24 Tape Vol: JM, CPT - 4: 32114 Echo Event ID:[id number] Order ID: [id number] Reason for Study:Leg swelling , DVT suspected.Procedures: [...] s Signed 03/31/2020 09:27 Qamar Manuel MD, [facility]
--- NOTE | 2021-06-22 12:32 | RAD REPORT ---
EXAM DESCRIPTION: Jason Single View06/22/2021 12:23 pm CLINICAL HISTORY: Hypotension COMPARISON: 2020 FINDINGS: The lungs appear clear of acute infiltrate. The heart is normal size IMPRESSION: No acute abnormalities displayed
[2021-06-22] MEDS ORDERED: NA CHLORIDE 0.9% 1,000 ML ONE (12:53)
[2021-06-22 13:10] LABS: Absolute Lymphocytes (CBC) 0.6 K/uL (0.7-4.9); Hematocrit 30.6 % (39.6-49.0); Lymphocytes % 10.9 % (15.3-44.8); MPV 8.4 fL (7.6-11.3); RBC Red Blood Cell Count 3.05 M/uL (4.33-5.43)
[2021-06-22 13:15] LABS: Protime INR 1.06
[2021-06-22 13:17] LABS: Albumin 3.4 g/dL (3.4-5.0); Bilirubin Total 0.5 mg/dL (0.2-1.0); Potassium 3.9 mmol/L (3.5-5.1); Protein, Total 6.1 g/dL (6.4-8.2)
[2021-06-22 13:59] LABS: Urine Bacteria <20 /HPF (NONE SEEN); Urine Mucus 1+ /HPF (NONE SEEN)
[2021-06-22 14:18] LABS: Blood Morphology Comment NOT SEEN (NOT SEEN); Platelet Estimate DECR; White Blood Cell Scan OK (OK)
--- NOTE | 2021-06-22 15:23 | EDPHYS ---
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 12:18 The patient presents with dizziness, feeling faint. Onset: The symptoms/episode rn began/occurred this morning. Modifying factors: The symptoms are alleviated by nothing, the symptoms are aggravated by standing up. Associated signs and symptoms: Pertinent positives: back pain, generalized weakness, fatigue. Severity of symptoms: At their worst the symptoms were moderate in the emergency department the symptoms have improved. The patient has not experienced similar symptoms in the past. The patient has been recently seen by a physician:. 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 Symptoms have improved but are not gone. No fever. No vomiting. Reports decreased urination today. NO hematuria. . Historical: - Allergies: 11:38 Codeine; vg1 - Home Meds: 11:38 Aspirin Oral [Active]; atovaquone oral [Active]; carvedilol oral [Active]; Doxycycline vg1 Oral [Active]; ergocalciferol (vitamin D2) 50,000 unit Oral tab daily [Active]; Famotidine Oral [Active]; fludrocortisone oral [Active]; Hydralazine Oral [Active]; Insulin Lispro [Active]; Insulin NPH [Active]; Isosorbide Dinitrate Oral [Active]; Floranex oral [Active]; Prednisone Oral [Active]; tacrolimus oral [Active]; valganciclovir oral [Active]; Ursodiol Oral [Active]; - PMHx: 11:38 Cirrhosis; Hepatitis; vg1 - PSHx: 11:38 Left knee sx; Tonsillectomy; vg1 - Immunization history:: Client reports receiving the 2nd dose of the Covid vaccine. - Social history:: Smoking status: Patient denies any tobacco usage or history of. - Family history:: not pertinent. - Hospitalizations: : Patient was recently seen at. ROS: 12:18 Constitutional: Negative for fever, chills Eyes: Negative for injury, pain, redness, rn and discharge, ENT: Negative for injury, pain, and discharge, Neck: Negative for injury, pain, and swelling, Cardiovascular: Negative for chest pain, palpitations, and edema, Respiratory: Negative for shortness of breath, cough, wheezing, and pleuritic chest pain, Abdomen/GI: Negative for abdominal pain, nausea, vomiting, diarrhea, and constipation, Back: + low back pain : Negative for injury, bleeding, discharge, and swelling, MS/Extremity: Negative for injury and deformity, Skin: Negative for injury, rash, and discoloration, Neuro: Negative for headache, numbness, tingling, and seizure. Exam: 12:18 Constitutional: This is a well developed, well nourished patient who is awake, alert, rn and in no acute distress. Head/Face: Normocephalic, atraumatic. Eyes: Periorbital areas with no swelling, redness, or edema. ENT: dry MM Cardiovascular: Regular rate and rhythm. No pulse deficits. Respiratory: Soeaking full sentences, unlabored. No increased work of breathing, no retractions or nasal flaring. Abdomen/GI: Soft, non-tender Back: No spinal tenderness. No costovertebral tenderness. Full range of motion. Skin: Warm, dry MS/ Extremity: Pulses equal, no cyanosis. Neuro: Awake and alert, GCS 15 Vital Signs: 11:32 BP 100 / 60; Pulse 72; Resp 20; Temp 97.7(O); Pulse Ox 100% on R/A; Weight 76.2 kg; vg1 Height 5 ft. 10 in. (177.80 cm); Pain 2/10; 12:30 BP 112 / 62; Pulse 77; Resp 18; Pulse Ox 100% ; Pain 3/10; jh6 14:15 BP 127 / 72; Pulse 67; Resp 17; Pulse Ox 97% ; jh6 14:46 BP 129 / 68; Pulse 63; Resp 15; Pulse Ox 100% ; jl7 15:47 BP 127 / 70; Pulse 66; Resp 17; Pulse Ox 100% ; Pain 0/10; jh6 11:32 Body Mass Index 24.11 (76.20 kg, 177.80 cm) vg1 Lee Coma Score: 12:30 Eye Response: spontaneous(4). Verbal Response: oriented(5). Motor Response: obeys jh6 commands(6). Total: 15. MDM: 11:24 Patient medically screened. rn 15:18 Differential diagnosis: cardiac arrhythmia, generalized weakness, hypovolemia, rn idiopathic dizziness, sepsis. Data reviewed: vital signs, nurses notes, lab test result(s), EKG, radiologic studies, CT scan, plain films, and as a result, I will discharge patient. Counseling: I had a detailed discussion with the patient and/or guardian regarding: the historical points, exam findings, and any diagnostic results supporting the discharge/admit diagnosis, lab results, radiology results, the need for outpatient follow up, to return to the emergency department if symptoms worsen or persist or if there are any questions or concerns that arise at home. Medical screen evaluation completed. [facility]. Response to treatment: the patient's symptoms have markedly improved after treatment, and as a result, I will discharge patient. Special discussion: I discussed with the patient/guardian in detail that at this point there is no indication for admission to the hospital. It is understood, however, that if the symptoms persist or worsen the patient needs to return immediately for re-evaluation. 15:19 ED course: Pt markedly improved, vitals normal, no hypotension here, + high BUN, most rn likely volume depletion which is what judaism told , and to come to get fluids. No signs or sepsis, no oxygen requirement, cxr neg, marked improvement after fluids. . 15:19 ED course: Has f/u appt with his transplant team in a few days. Will dc home with rn return precautions. . 06/22 12:08 Order name: Blood Culture Adult (2) rn 06/22 12:08 Order name: CBC with Diff; Complete Time: 14:23 rn 06/22 12:08 Order name: CMP; Complete Time: 13:42 rn 06/22 12:08 Order name: Lactate; Complete Time: 13:42 rn 06/22 12:08 Order name: Protime (+inr); Complete Time: 13:42 rn 06/22 12:08 Order name: Ptt, Activated; Complete Time: 13:42 rn 06/22 12:08 Order name: Urine Culture rn 06/22 12:08 Order name: Urine Microscopic Only; Complete Time: 14:08 rn 06/22 12:08 Order name: Chest Single View XRAY; Complete Time: 12:40 rn 06/22 12:08 Order name: Procalcitonin; Complete Time: 14:08 rn 06/22 13:21 Order name: CBC Smear Scan; Complete Time: 14:23 EDMS 06/22 12:08 Order name: Accucheck; Complete Time: 14:21 rn 06/22 12:08 Order name: Cardiac monitoring; Complete Time: 12:11 rn 06/22 12:08 Order name: EKG - Nurse/Tech; Complete Time: 12:11 rn 06/22 12:08 Order name: IV Saline Lock - Large Bore; Complete Time: 12:56 rn 06/22 12:08 Order name: Labs collected and sent; Complete Time: 12:56 rn 06/22 12:08 Order name: O2 Per Protocol; Complete Time: 12:56 rn 06/22 12:08 Order name: O2 Sat Monitoring; Complete Time: 12:56 rn 06/22 12:08 Order name: Urine Dipstick-Ancillary (obtain specimen); Complete Time: 13:33 rn Administered Medications: 12:56 Drug: NS 0.9% 1000 ml Route: IV; Rate: 1000 ml; Site: left wrist; [facility] 14:23 Follow up: Response: No adverse reaction; IV Status: Completed infusion; IV Intake: jl7 1000ml 14:26 Follow up: IV Status: Completed infusion [facility] 14:20 Drug: NS 0.9% 500 ml Route: IV; Rate: bolus; Site: left wrist; jl7 15:11 Follow up: Response: No adverse reaction; IV Status: Completed infusion; IV Intake: jl7 500ml 15:10 CANCELLED (wrong orderr): NS 0.9% 1000 ml IV at 1 bolus Per protocol; 1000 mL bolus 7 Disposition Summary: 06/22/21 15:22 Discharge Ordered Location: Home rn Problem: new rn Symptoms: have improved rn Condition: Stable rn Diagnosis - Dehydration rn - Muscle weakness (generalized) rn - Liver transplant status rn - Kidney transplant status rn Followup: rn - With: Private Physician - When: As needed - Reason: Recheck today's complaints, Re-evaluation by your physician Discharge Instructions: - Discharge Summary Sheet rn - Dehydration, Adult rn - Weakness rn - Kidney Transplant, Adult rn - Liver Transplant, Adult rn Forms: - Medication Reconciliation Form rn - Thank You Letter rn - 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 jl7 jl7 15:10 14:23 NS 0.9% 1000 ml IV at 1 bolus Per protocol; 1000 mL bolus given. jl7 jl7 15:10 15:10 NS 0.9% 1000 ml IV at 1 bolus Per protocol; 1000 mL bolus ordered. jl7 jl7
--- NOTE | 2021-06-22 15:23 | ER ---
Nurse's Notes [facility] Name: Dorian Cruz Age: 71 yrs Sex: Male : 1950 Arrival Date: 06/22/2021 Time: 11:18 Bed 6 Private MD: Diagnosis: Dehydration;Muscle weakness (generalized);Liver transplant status;Kidney transplant status Presentation: 06/22 11:32 Chief complaint: Patient states: On June 18 was released from [facility] and received vg1 Live and Kidney transplant; this morning went to [facility] for lab work and when got home BP was 75/42 and was told to come to ER for further evaluation; pt states nausea, headache, lower back pain and dizziness. Coronavirus screen: Vaccine status: Patient reports receiving the 2nd dose of the covid vaccine. Client denies travel out of the [place] in the last 14 days. Ebola Screen: Patient denies exposure to infectious person. Patient denies travel to an Ebola-affected area in the 21 days before illness onset. Initial Sepsis Screen: Does the patient meet any 2 criteria? No. Patient's initial sepsis screen is negative. Does the patient have a suspected source of infection? No. Patient's initial sepsis screen is negative. Risk Assessment: Do you want to hurt yourself or someone else? Patient reports no desire to harm self or others. Onset of symptoms was June 22, 2021. 11:32 Method Of Arrival: Wheelchair vg1 11:32 Acuity: NGOC 3 vg1 Triage Assessment: 11:38 General: Appears uncomfortable, Behavior is calm, cooperative. Pain: Complains of pain vg1 in back. 11:38 : Reports inability to void. vg1 Historical: - Allergies: 11:38 Codeine; vg1 - Home Meds: 11:38 Aspirin Oral [Active]; atovaquone oral [Active]; carvedilol oral [Active]; Doxycycline vg1 Oral [Active]; ergocalciferol (vitamin D2) 50,000 unit Oral tab daily [Active]; Famotidine Oral [Active]; fludrocortisone oral [Active]; Hydralazine Oral [Active]; Insulin Lispro [Active]; Insulin NPH [Active]; Isosorbide Dinitrate Oral [Active]; Floranex oral [Active]; Prednisone Oral [Active]; tacrolimus oral [Active]; valganciclovir oral [Active]; Ursodiol Oral [Active]; - PMHx: 11:38 Cirrhosis; Hepatitis; vg1 - PSHx: 11:38 Left knee sx; Tonsillectomy; vg1 - Immunization history:: Client reports receiving the 2nd dose of the Covid vaccine. - Social history:: Smoking status: Patient denies any tobacco usage or history of. - Family history:: not pertinent. - Hospitalizations: : Patient was recently seen at. Screenin:30 Abuse screen: Denies threats or abuse. jh6 12:30 Nutritional screening: No deficits noted. Tuberculosis screening: No symptoms or risk jh6 factors identified. Fall Risk IV access (20 points). Ambulatory Aid- None/Bed Rest/Nurse Assist (0 pts). Gait- Weak (10 pts.). Mental Status- Oriented to own ability (0 pts). Assessment: 12:54 General: Appears in no apparent distress. comfortable, Behavior is calm, appropriate jh6 for age. Pain: Complains of pain in lumbar area, left low back and right low back Pain currently is 4 out of 10 on a pain scale. Quality of pain is described as aching, sharp, Pain began suddenly, Is continuous, Alleviated by rest, repositioning, Aggravated by exercise, increased activity, repositioning, weight bearing. Neuro: No deficits noted. Reports dizziness, since coming back from dr gómez this am to give blood. 14:00 Reassessment: Patient and/or family updated on plan of care and expected duration. Pain jh6 level reassessed. Patient is alert, oriented x 3, equal unlabored respirations, skin warm/dry/pink. Patient states feeling better. 15:48 Reassessment: Patient and/or family updated on plan of care and expected duration. Pain jh6 level reassessed. Patient is alert, oriented x 3, equal unlabored respirations, skin warm/dry/pink. Patient states feeling better. Patient states symptoms have improved. Vital Signs: 11:32 BP 100 / 60; Pulse 72; Resp 20; Temp 97.7(O); Pulse Ox 100% on R/A; Weight 76.2 kg; vg1 Height 5 ft. 10 in. (177.80 cm); Pain 2/10; 12:30 BP 112 / 62; Pulse 77; Resp 18; Pulse Ox 100% ; Pain 3/10; jh6 14:15 BP 127 / 72; Pulse 67; Resp 17; Pulse Ox 97% ; jh6 14:46 BP 129 / 68; Pulse 63; Resp 15; Pulse Ox 100% ; jl7 15:47 BP 127 / 70; Pulse 66; Resp 17; Pulse Ox 100% ; Pain 0/10; jh6 11:32 Body Mass Index 24.11 (76.20 kg, 177.80 cm) vg1 Vitals: 12:30 Cardiac Rhythm Assessment Regular. jh6 15:47 Cardiac Rhythm Assessment Regular. jh6 Lee Coma Score: 12:30 Eye Response: spontaneous(4). Verbal Response: oriented(5). Motor Response: obeys jh6 commands(6). Total: 15. ED Course: 11:18 Patient arrived in ED. mr 11:24 Rogelio Hilario MD is Attending Physician. rn 11:38 Triage completed. vg1 11:38 Arm band placed on. vg1 12:00 Placed in gown. Bed in low position. Call light in reach. Side rails up X2. jh6 12:01 Oumou Kumar, RN is Primary Nurse. jl7 12:25 Chest Single View XRAY In Process Unspecified. EDMS 12:52 Inserted saline lock: 22 gauge in left upper arm, using aseptic technique. Blood jh6 collected. 12:53 Inserted saline lock: 24 gauge in left wrist, using aseptic technique. jh6 15:49 No provider procedures requiring assistance completed. jh6 15:49 IV discontinued, intact, bleeding controlled, No redness/swelling at site. Pressure jh6 dressing applied. Administered Medications: 12:56 Drug: NS 0.9% 1000 ml Route: IV; Rate: 1000 ml; Site: left wrist; jh6 14:23 Follow up: Response: No adverse reaction; IV Status: Completed infusion; IV Intake: jl7 1000ml 14:26 Follow up: IV Status: Completed infusion jh6 14:20 Drug: NS 0.9% 500 ml Route: IV; Rate: bolus; Site: left wrist; jl7 15:11 Follow up: Response: No adverse reaction; IV Status: Completed infusion; IV Intake: jl7 500ml 15:10 CANCELLED (wrong orderr): NS 0.9% 1000 ml IV at 1 bolus Per protocol; 1000 mL bolus jl7 Intake: 14:23 IV: 1000ml; Total: 1000ml. jl7 15:11 IV: 500ml; Total: 1500ml. jl7 Outcome: 15:22 Discharge ordered by . rn 15:49 Discharged to home ambulatory. 6 15:49 Condition: good 15:49 Discharge instructions given to patient, family, Instructed on discharge instructions, follow up and referral plans. Demonstrated understanding of instructions, follow-up care. 15:50 Patient left the ED. 6 Signatures: Dispatcher [employer] PHILPA Nichole Ingram Roman, MD MD rn Leal, Jahala RN RN jl7 Brie Denson RN RN vg1 Cally Mayes RN RN 6 Corrections: (The following items were deleted from the chart) 15:10 14:23 NS 0.9% 1000 ml IV at 1 bolus in left wrist jl7 jl7
[2021-06-22 17:10] VITALS: TEMP 97.7
[2021-06-22 17:15] VITALS: O2SAT 100
[2021-06-22 17:16] VITALS: BP 127/70
--- NOTE | 2021-06-23 10:52 | EKG ---
Test Date: 2021-06-22 Test Time: 12:03:29 Almond Sorter: LORRI MEASUREMENT RESULTS: Intervals: Rate: 72 IA: 192 QRSD: 124 QT: 388 QTc: 424 Brule: P: 44 IA: 192 QRS: -21 T: 16 INTERPRETIVE STATEMENTS: Normal sinus rhythm Left ventricular hypertrophy with QRS widening Cannot rule out Septal infarct, age undetermined Abnormal ECG Compared to ECG 04/24/2020 15:43:41 Myocardial infarct finding now present Early repolarization no longer present Electronically Signed On 06-23-21 10:50:26 CDT by Edson Hernandez
== END 2021-06-22 15:50 | disposition home or self-care (01) ==
LOC: ER 11:15
DX: E86.0 Dehydration (principal); M62.81 Muscle weakness (generalized); Z94.0 Kidney transplant status; Z94.4 Liver transplant status; Z88.5 Allergy status to narcotic agent; Z79.82 Long term (current) use of aspirin; Z79.4 Long term (current) use of insulin
CPT/HCPCS: 93005; 87040 ×2; 87088; 85025; 87086; 36415; 87205; 85610; 83605; 85730; 81015; 80053; 84145; 71045; J7030; 96360; 96361; 99284

== ENCOUNTER 2021-11-20 17:07 | Emergency (ER) | payer OTHER ==
--- OUTSIDE RECORDS SUMMARY | 2021-11-20 17:15 | XMS REPORT | Continuity of Care Document ---
:1950 Author Organization [facility] t Address [address] [place] [address] Care Team Providers Name Role Phone Jan Kenney Primary Care Physician YURY FREEMAN Attending Clinician Unavailable EDELMIRA VILLANUEVA Attending Clinician Unavailable MARTI ARMSTRONG Attending Clinician Unavailable AUBREY CARMICHAEL Attending Clinician Unavailable NAMAN_Federico_Jimbo_JOSE Attending Clinician Unavailable KASH HENDRICKS Attending Clinician Unavailable NICHOLE CHAPMAN Attending Clinician Unavailable TYESHA HAGER Attending Clinician Unavailable MD STEWART MENDEZ Attending Clinician Unavailable LORRAINE LOZANO Attending Clinician Unavailable ZORAIDA RASHID Attending Clinician Unavailable ETELVINA FAIRCHILD Attending Clinician Unavailable RUDDY HENNESSY Attending Clinician Unavailable SEGUNDO CANALES Attending Clinician Unavailable MD KRISHNA WEBB Attending Clinician Unavailable MD MARTI ARMSTRONG Attending Clinician Unavailable Only, Adc Test Attending Clinician Unavailable Iker Pisano MD Attending Clinician NURIA DENNIS Attending Clinician Unavailable MD NURIA DENNIS Attending Clinician Unavailable YRIS GARCIA Attending Clinician Unavailable MD DONALD GANN Attending Clinician Unavailable SCOTTIE HOPSON Attending Clinician Unavailable SURESH MARTINES Attending Clinician Unavailable [place] MA Attending Clinician Unavailable DONALD GANN Attending Clinician Unavailable Ruddy Lui MD Attending Clinician Annalisa WARD, Rodriguez Ya Attending Clinician Mina RODRIGUEZ, Romaine Zaldivar Attending Clinician Unavailable KRISHNA WEBB Attending Clinician Unavailable Sho [address] RESEARCH ENGINEER, Ilene Attending Clinician Xiang WARD, Maurisio Attending Clinician Alvino RODRIGUEZ, Luz Attending Clinician Unavailable Bailee WARD, [facility] Attending Clinician Provider, [facility] Attending Clinician Unavailable YURY FREEMAN Admitting Clinician Unavailable MARTI ARMSTRONG Admitting Clinician Unavailable NAMAN_Federico_Jimbo_JOSE Admitting Clinician Unavailable KASH HENDRICKS Admitting Clinician Unavailable ELISA CALERO Admitting Clinician Unavailable ZORAIDA RASHID Admitting Clinician Unavailable MD EZEKIEL TEJADA Admitting Clinician Unavailable ETELVINA FAIRCHILD Admitting Clinician Unavailable GEN LOZANO Admitting Clinician Unavailable KRISHNA WEBB Admitting Clinician Unavailable MD KRISHNA WEBB Admitting Clinician Unavailable NURIA DENNIS Admitting Clinician Unavailable MD NURIA DENNIS Admitting Clinician Unavailable YRIS GARCIA Admitting Clinician Unavailable KIA DWYER Admitting Clinician Unavailable DONALD GANN Admitting Clinician Unavailable Payers Payer Name Policy Type Policy Effective Date Expiration Source Number Date MEDICARE A B [id number] 2017 00:00:00 GENERIC MEDICARE [id number] 2018 SUPPLEMENT 00:00:00 GEENA BRACING- [id number] [facility] MED[facility] PART [id number] 2017 [place] [facility] A AND 00:00:00 [facility] [id number] 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 [id number] [address] [place] [address] MEDICARE 00:00:00 Hospital [id number] 2017-PresentComme rcial Problems Condition Condition Condition Status [...] overload overload 08-01 00:00: Hospita 00 l Hepatic Hepatic Disease Active [facility] encephal[facility] 06-26 Trina kes athy athy 00:00: Medical 00 Center Cirrhosis Cirrhosis Disease Active Met hodi of [...] rs active active ity of problems problems [facility] Sciatica, Sciatica, Diagnosis Active C ommon right side right side Sp anay - [facility] Strain of Strain of Problem Active Com mon left left [facility] patellar patellar - [facility] tendon, tendon, St initial initial [facility] encounter encounter [facility] Pain, Pain, Diagnosis Active Common joint, joint, Spirit knee, left knee, left - [facility] Strain of Strain of Diagnosis Active C ommon left left [facility] patellar patellar - [facility] tendon, tendon, St subsequent [facility] encounter encounter [facility] Allergies, Adverse Reactions, Alerts Allergy Allergy Status Severity Reaction(s) Onset Inactive Treating Comm ents Source Name Type Date Date Clinician Codeine Drug Active Other (See Patient [facility] when he Center last took medicatio n CODEINE Allergy Active Other [facility] Codeine Propensi Active Other (See Loopy - Me thodi ty to Comments) 04-[address] adverse 00:00: in other Hospita reaction 00 world l s to drug codeine Adverse Active Info Not Common Reaction Available Spiri t - [facility] Social History Social Habit Start Date Stop Date Quantity Comments Source History SDOH [facility] Alcohol Std Drinks History [facility] Alcohol Binge Exposure to Not sure [facility] SARS-CoV-2 (event) Alcohol intake 2020-09-19 2020-09-19 [facility] 00:00:00 00:00:00 non-drinker (finding) History SDOH 2020-04-02 2020-04-02 1 [facility] Alcohol Frequency 00:00:00 00:00:00 Tobacco use and 2019-12-25 2019-12-25 Never used [facility] 00:00[facility]00 00:00:00 [facility] Sex Assigned At [birth year] [facility] 00:00:00 00:00:00 [facility] Smoking Status Start Date Stop Date Source Never smoker [facility] Medications Ordered Filled Start Stop Current Ordering [...] 15:16: mouth Hospita 25 daily. l SAW 0 Yes 1{capsu QD Take 1 Methodi PALMETTO 7-30 le} capsule by st ORAL 15:16: mouth Hospita 25 daily. l sucralfate Yes 1g Q.5D Take 1 g Met hodi (CARAFATE) 7-[address] 1 gram 15:16: (two) Hospita tablet 25 times a l day. midodrine Yes 10mg Q.57022899 Take 10 mg Methodi (PROAMATINE 7-30 [id number] by mouth 3 st ) 10 MG [...] 40mg Q.5D Take 1 Meth asif e 12 tablet (40 st (PROTONIX) 00:00: mg total) Ho spita 40 MG EC 00 by mouth 2 l tablet (two) times a day. ergocalcife 2020- No [id number] Q7D Take 1 M ethodi rol 08-22 09-[address] (VITAMIN 00:00: 04:59 (50,000 Hospi ta D2) 50,000 00 :00 Units l unit total) by capsule mouth once a week for 84 days. torsemide 0 2020- No 60mg Q.5D Take 60 mg M ethodi (DEMADEX) 08-[address] 20 MG 00:00: 00:00 (two) Hospita tablet 00 :00 times a l day. spironolact 2020-2020- No 100mg QD Take 1 Me thodi one 08-12 07-[address] (ALDACTONE) 00:00: 00:00 (100 mg Ho spita 100 MG 00 :00 total) by l tablet mouth daily. magnesium 2020-0 2020- No 400mg QD Take 400 Me thodi oxide 08-11-[address] (MAG-OX) 21:50: 00:00 mouth Hospita 400 mg 28 :00 daily. l (241.3 mg magnesium) tablet torsemide 2020-2020- No 60mg Q.5D Take 3 Metho di (DEMADEX) 08-11-[address] 20 MG 00:00: 00:00 (60 mg Hospita tablet 00 :00 total) by l mouth 2 (two) times a day. doxycycline 2020-0 2020- No 100mg Q.5D Take 1 Me thodi (DORYX) 100 08-11-[address] MG EC 00:00: 04:59 (100 mg Hospita tablet 00 :00 total) by l mouth 2 (two) times a day for 7 days. riFAXimin 2020- No 550mg Q.5D Take 1 Meth asif (XIFAXAN) 08-11- tablet st 550 mg 00:00: 00:00 (550 mg Hospita tablet 00 :00 total) by l mouth 2 (two) times a day for 30 days. midodrine Yes 10mg Q.57313330 Take [address] (PROAMATINE - [id number] by mouth 3 [facility] ) 10 MG 15:53: 3D (three) Medical tablet 19 times Center daily. pantoprazol 0 Yes 40mg QD Take [address] e 5-07 by mouth [facility] (PROTONIX) 15:53: daily. Medic al 40 MG 19 Center tablet spironolact 0 Yes 25mg QD Take [address] one 5-07 by mouth [facility] (ALDACTONE) 15:53: daily Hold Medical 25 MG 19 if bp less Center tablet than 100 . torsemide 0 Yes 20mg QD Take [address] (DEMADEX) 5-07 by mouth [facility] 20 MG 15:53: daily. Medical tablet 19 Center cyanocobala Yes 1000ug QD Take 1,[address] min, 5-07 mcg by [facility] vitamin 15:53: mouth Medical B-12, 1000 19 daily. Center MCG tablet lactulose Yes 20g Q.25D Take [address] (CHRONULAC) 5-07 by mouth 4 Trina kes 20 gram/30 15:53: (four) Medic al mL solution 19 times Center daily. sucralfate Yes 1g Q.5D Take [address] (CARAFATE) 5-07 by mouth 2 Beverley es 1 gram 15:53: (two) Medical tablet 19 times Center daily. coenzyme Yes 100mg QD Take [address] Q10 100 mg 5-07 mg by [facility] capsule 15:53: mouth Medical 19 daily. Center saw Yes 160mg Q.5D Take [address] palmetto 5-07 mg by [facility] 160 MG 15:53: mouth 2 Medical capsule 19 (two) Center times daily. spironolact 2020- No 100mg Q.5D Take 1 Me thodi one - 04-[address] (ALDACTONE) 00:00: 04:59 (100 mg Ho spita 100 MG 00 :00 total) by l tablet mouth 2 (two) times a day for 30 days. lactulose 2020- No 20g Q.[id number] Take 20 g Methodi 10 gram/15 04-14 [id number] by mouth 3 [address] mL (15 mL) 22:38: 00:00 3D (three) Hos kayleigh solution 55 :00 times a l day. 4am, 12pm, 8pm spironolact 2020- No 50mg Q.5D Take 50 mg Methodi one 04-14- by mouth 2 st (ALDACTONE) 22:38: 00:00 [...] 100mg Q.5D Take 1 Me thodi one 04-[address] (ALDACTONE) 00:00: 00:00 (100 mg Ho spita 100 MG 00 :00 total) by l tablet mouth 2 (two) times a day. midodrine 2020- No 5mg Q.[id number] Take 1 Methodi (PROAMATINE 04-14 [id number] tablet (5 st ) 5 MG 00:00: 00:00 3D mg total) Hospi ta tablet 00 :00 by mouth 3 l (three) times a day for 30 days. torsemide No 60mg Q.5D Take 3 Metho di (DEMADEX) 04-[address] 20 MG 00:00: 00:00 (60 mg Hospita tablet 00 :00 total) by l mouth 2 (two) times a day. tamsulosin No .4mg QD Take 1 Meth asif (FLOMAX) 04-[address] 0.4 mg 00:00: 00:00 (0.4 mg Hospita capsule 00 :00 total) by l mouth daily with dinner. albuterol 2019-02 Yes [id number] 2{puff} Inhale 2 Univers 90 1-03 Puffs ity of mcg/actuati 00:00: every 6 Julio as on inhaler 00 (six) Medical hours as Branch needed for Wheezing, Shortness of Breath or Chest tightness. Meloxicam Meloxicam 2019- No Renato 1 tablet Common 03-29 Tobar [facility] 00:00: 00:00 - [facility] 00 :00 [facility] spironolact spironolact Yes Renaot not Common one one Amadou defined [facility] Furosemide Furosemide Yes Renato not C ommon Amadou defined [facility] Immunizations Ordered Immunization Filled Immunization Date Status Commen ts Source Name Name FLUZONE HIGH-DOSE PF 2020-04-14 Completed [facility] 00:00:00 Hospital Vital Signs Vital Name Observation [...] Hospital Systolic blood 2020-09-01 13:08:47 113 mm[Hg] [facility] pressure Diastolic blood 2020-09-01 13:08:47 58 mm[Hg] [facility] pressure Heart rate 2020-09-01 13:08:47 62 /min [facility] Body temperature 2020-09-01 13:08:47 36.39 Radha [facility] Respiratory rate 2020-09-01 13:08:47 20 /min [facility] Oxygen saturation in 2020-09-01 13:08:47 99 /min [facility] Arterial blood by Pulse oximetry Procedures Procedure Date / Time Performing Source Performed Clinician HC COMPLETE BLD COUNT W/AUTO DIFF 2020-09-01 Tobi Garcia 09:37:00 [facility] BASIC METABOLIC PANEL 2020-09-01 Tobi Garcia 09:37:00 [facility] HEPATIC FUNCTION PANEL 2020-09-01 Tobi Garcia 09:37:00 [facility] MAGNESIUM LEVEL 2020-09-01 Tobi Garcia 09:37:00 [facility] PHOSPHORUS LEVEL 2020-09-01 Tobi Garcia 09:37:00 [facility] PROTHROMBIN TIME WITH INR 2020-09-01 Temi Garcia 09:37:00 [facility] ESTIMATED GFR 2020-09-01 Tobi Garcia 09:37:00 [facility] SMEAR REVIEW 2020-09-01 Tobi Garcia 09:37:00 [facility] HEMOGLOBIN & HEMATOCRIT 2020-09-01 Delmi Garcia t 03:19:00 [facility] HC COMPLETE BLD COUNT W/AUTO DIFF 2020-08-31 Tobi Garcia 10:29:00 [facility] BASIC METABOLIC PANEL 2020-08-31 Tobi Garcia 10:29:00 [facility] HEPATIC FUNCTION PANEL 2020-08-31 Tobi Garcia 10:29:00 [facility] MAGNESIUM LEVEL 2020-08-31 Temi Garciaist 10:29:00 [facility] PHOSPHORUS LEVEL 2020-08-31 Tobi Garcia 10:29:00 [facility] PROTHROMBIN TIME WITH INR 2020-08-31 Temi Garcia ist 10:29:00 [facility] ESTIMATED GFR 2020-08-31 Tobi Garcia 10:29:00 [facility] SMEAR REVIEW 2020-08-31 Tobi Garcia 10:29:00 [facility] TRANSFUSE RED BLOOD CELLS 2020-08-30 Ronaldo Burrell Method ist 23:54:39 [facility] ESOPHAGOGASTRODUODENOSCOPY (EGD) 2020-08-30 Ruddy Lui 18:18:00 [facility] TRANSFUSE RED BLOOD CELLS 2020-08-30 Temi Garcia ist 18:09:03 [facility] TTE COMPLETE W AGITATED SALINE W 2020-08-30 Segundo Canales CONT W DOP 15:00:00 Hospital HEPATIC FUNCTION PANEL 2020-08-30 Tobi Garcia 10:06:00 [facility] MAGNESIUM LEVEL 2020-08-30 Temi Garciaist 10:06:00 [facility] PHOSPHORUS LEVEL 2020-08-30 Tobi Garcia 10:06:00 [facility] PROTHROMBIN TIME WITH INR 2020-08-30 Temi Garcia ist 10:06:00 [facility] ESTIMATED GFR 2020-08-30 Tobi Garcia 10:06:00 [facility] SMEAR REVIEW 2020-08-30 Tobi Garcia 10:06:00 [facility] HC COMPLETE BLD COUNT W/AUTO DIFF 2020-08-30 Toib Garcia 10:06:00 [facility] BASIC METABOLIC PANEL 2020-08-30 Tobi Garcia 10:06:00 [facility] US ABDOMINAL DOPPLER 2020-08-29 Ilene Berkowitz [facility] 22:45:05 Hospital HEMOGLOBIN & HEMATOCRIT 2020-08-29 Fauria, Ilene Method ist 19:03:00 Hospital POTASSIUM LEVEL 2020-08-29 Aubrey Carmichael [facility] 17:40:00 [facility] HEMOGLOBIN & HEMATOCRIT 2020-08-29 Fauria, Ilene Method ist 17:40:00 Hospital POTASSIUM LEVEL 2020-08-29 Ronaldo Burrell [facility] 13:15:00 [facility] HC COMPLETE BLD COUNT W/AUTO DIFF 2020-08-29 Tobi Garcia 10:09:00 [facility] BASIC METABOLIC PANEL 2020-08-29 Temi Garciaist 10:09:00 [facility] HEPATIC FUNCTION PANEL 2020-08-29 Tobi Garcia 10:09:00 [facility] MAGNESIUM LEVEL 2020-08-29 Ronaldo Burrell [facility] 10:09:00 [facility] PHOSPHORUS LEVEL 2020-08-29 Ronaldo Burrell [facility] 10:09:00 [facility] PROTHROMBIN TIME WITH INR 2020-08-29 Ronaldo Burrell Method ist 10:09:00 [facility] ESTIMATED GFR 2020-08-29 Tobi Garcia 10:09:00 [facility] URINE CULTURE 2020-08-29 Tobi Garcia 07:15:00 [facility] URINALYSIS SCREEN AND MICROSCOPY, 2020-08-29 Tobi Garcia WITH REFLEX TO CULTURE 07:15:00 [facility] BLOOD CULTURE, AEROBIC & ANAEROBIC 2020-08-29 Temi Garciaist 05:56:00 [facility] BLOOD CULTURE, AEROBIC & ANAEROBIC 2020-08-29 Temi Garciaist 05:38:00 [facility] COVID-19 QUALITATIVE RT-PCR 2020-08-29 Rhoda Calero odist 04:33:00 [facility] HEMOGLOBIN & HEMATOCRIT 2020-08-29 Delmi Garcia 04:00:00 [facility] ECG ED PRELIMINARY INTERPRETATION 2020-08-28 Rhoda Calero 22:17:31 [facility] [place] CRITICAL CARE, E/M 30-74 2020-08-28 Rhoda Calero odist MINUTES 22:17:31 [facility] PREPARE RBC 2020-08-28 Tobi Garcia 21:57:00 [facility] HC COMPLETE BLD COUNT W/AUTO DIFF 2020-08-28 Rhoda Calero 21:57:00 [facility] PROTHROMBIN TIME WITH INR 2020-08-28 Rhoda Calero ist 21:57:00 [facility] TYPE AND SCREEN 2020-08-28 Rhoda Calero 21:57:00 [facility] COMPREHENSIVE METABOLIC PANEL 2020-08-28 Rhoda Calero thodist 21:57:00 [facility] LIPASE LEVEL 2020-08-28 Rhoda Calero 21:57:00 [facility] PARTIAL THROMBOPLASTIN TIME (PTT) 2020-08-28 Rhoda Calero 21:57:00 [facility] ESTIMATED GFR 2020-08-28 Maxx Doan 21:57:00 [facility] ECG 12-LEAD 2020-08-28 Rhoda Calero 21:47:56 [facility] MAGNESIUM LEVEL 2020-08-20 Aubrey Carmichael 12:16:00 [facility] BASIC METABOLIC PANEL 2020-08-20 Aubrey Carmichael 12:14:00 [facility] ABN TEST REFUSAL 2020-08-20 Aubrey Carmichael 12:14:00 [facility] PARATHYROID HORMONE 2020-08-20 Aubrey Carmichael 12:14:00 [facility] CBC WITH PLATELET AND DIFFERENTIAL 2020-08-11 Jimbo Berkowitz 10:00:00 [facility] BASIC METABOLIC PANEL 2020-08-11 Krishna Webb 10:00:00 [facility] HEPATIC FUNCTION PANEL 2020-08-11 Krishna Webb 10:00:00 [facility] MAGNESIUM LEVEL 2020-08-11 Krishna Webb 10:00:00 [facility] PROTHROMBIN TIME WITH INR 2020-08-11 Krishna Webb Method ist 10:00:00 [facility] PHOSPHORUS LEVEL 2020-08-11 Krishna Webb [facility] 10:00:00 [facility] ESTIMATED GFR 2020-08-11 Krishna Webb [facility] 10:00:00 [facility] HC COMPLETE BLD COUNT W/AUTO DIFF 2020-08-10 Santy Berkowitz gold [facility] 10:38:00 [facility] COMPREHENSIVE METABOLIC PANEL 2020-08-10 Krishna Webb Me thodist 10:38:00 [facility] PROTHROMBIN TIME WITH INR 2020-08-10 Krishna Webb Method ist 10:38:00 [facility] ESTIMATED GFR 2020-08-10 Krishna Webb [facility] 10:38:00 [facility] US ABDOMINAL PARACENTESIS IMAGING 2020-08-09 Martha Gann or [facility] 21:30:00 [facility] HC COMPLETE BLD COUNT W/AUTO DIFF 2020-08-09 Santy Berkowitz gold [facility] 10:27:00 Hospital RETICULOCYTE COUNT 2020-08-09 GannGirma kwantor [facility] 10:27:00 [facility] COMPREHENSIVE METABOLIC PANEL 2020-08-09 Donald Gann ethodist 10:27:00 Hospital PROTHROMBIN TIME WITH INR 2020-08-09 Donald Gann [facility] 10:27:00 Hospital FIBRINOGEN 2020-08-09 GannGirma kwantor [facility] 10:27:00 Hospital ESTIMATED GFR 2020-08-09 Girma Ganntor [facility] 10:27:00 Hospital POC GLUCOSE 2020-08-09 Gann, Donald [facility] 02:24:00 Hospital HEMOGLOBIN & HEMATOCRIT 2020-08-08 Fauria Ilene Method ist 21:46:00 Hospital HC COMPLETE BLD COUNT W/AUTO DIFF 2020-08-08 Martha Gann or [facility] 09:39:00 Hospital MAGNESIUM LEVEL 2020-08-08 Katy Donald [facility] 09:39:00 Hospital PHOSPHORUS LEVEL 2020-08-08 Girma Ganntor [facility] 09:39:00 Hospital HEPATIC FUNCTION PANEL 2020-08-08 Gann, Donald Methodis t 09:39:00 Hospital PROTHROMBIN TIME WITH INR 2020-08-08 Gann, Donald [facility] dist 09:39:00 Hospital BASIC METABOLIC PANEL 2020-08-08 Katy Donald [facility] 09:39:00 Hospital ESTIMATED GFR 2020-08-08 Gann, Donald [facility] 09:39:00 Hospital HC COMPLETE BLD COUNT W/AUTO DIFF 2020-08-07 Martha Gann or [facility] 10:05:00 Hospital PROTHROMBIN TIME WITH INR 2020-08-07 Gann, Donald [facility] dist 10:05:00 Hospital BASIC METABOLIC PANEL 2020-08-07 Gann, Donald [facility] 09:00:00 Hospital HEPATIC FUNCTION PANEL 2020-08-07 Katy, Donald Methodis t 09:00:00 Hospital MAGNESIUM LEVEL 2020-08-07 Gann, Donald [facility] 09:00:00 Hospital PHOSPHORUS LEVEL 2020-08-07 Katy Doanld [facility] 09:00:00 Hospital ESTIMATED GFR 2020-08-07 Gann, [facility] 09:00:00 Hospital US ABDOMINAL LIMITED 2020-08-06 Ilene Berkowitz [facility] 22:47:44 Hospital BASIC METABOLIC PANEL 2020-08-06 Katy Donald [facility] 09:36:00 Hospital HEPATIC FUNCTION PANEL 2020-08-06 Gann, Donald Methodis t 09:36:00 Hospital HC COMPLETE BLD COUNT W/AUTO DIFF 2020-08-06 Martha Gann or [facility] 09:36:00 Hospital MAGNESIUM LEVEL 2020-08-06 Gann, Donald [facility] 09:36:00 Hospital PHOSPHORUS LEVEL 2020-08-06 Gann, Donald [facility] 09:36:00 Hospital FOLATE LEVEL 2020-08-06 Girma Ganntor [facility] 09:36:00 Hospital VITAMIN B12 LEVEL 2020-08-06 Katy Donald [facility] 09:36:00 Hospital RETICULOCYTE COUNT 2020-08-06 Girma Ganntor [facility] 09:36:00 Hospital FERRITIN LEVEL 2020-08-06 Gann, Donald [facility] 09:36:00 Hospital HAPTOGLOBIN 2020-08-06 Donald Gann [facility] 09:36:00 Hospital TOTAL IRON BINDING CAPACITY 2020-08-06 Donald Gann Met hodist 09:36:00 Hospital LDH 2020-08-06 Donald Gann [facility] 09:36:00 Hospital DIRECT KATIE' (MIRZA) 2020-08-06 Donald Gann [facility] 09:36:00 Hospital PERIPHERAL SMEAR 2020-08-06 Donald Gann [facility] 09:36:00 Hospital PROTHROMBIN TIME WITH INR 2020-08-06 Donald Gann [facility] 09:36:00 Hospital TYPE AND SCREEN 2020-08-06 Donald Gann [facility] 09:36:00 Hospital ESTIMATED GFR 2020-08-06 Donald Gann [facility] 09:36:00 Hospital BASIC METABOLIC PANEL 2020-08-05 Donald Gann [facility] 09:39:00 Hospital HEPATIC FUNCTION PANEL 2020-08-05 Donald Gannis t 09:39:00 Hospital HC COMPLETE BLD COUNT W/AUTO DIFF 2020-08-05 Martha Gann or [facility] 09:39:00 Hospital MAGNESIUM LEVEL 2020-08-05 Donald Gann [facility] 09:39:00 Hospital PHOSPHORUS LEVEL 2020-08-05 Donald Gann [facility] 09:39:00 Hospital PROTHROMBIN TIME WITH INR 2020-08-05 Donald Gann [facility] 09:39:00 Hospital ESTIMATED GFR 2020-08-05 Donald Gann [facility] 09:39:00 Hospital HC COMPLETE BLD COUNT W/AUTO DIFF 2020-08-04 Gary Webb [facility] 09:31:00 [facility] PROTHROMBIN TIME WITH INR 2020-08-04 Krishna Webbt 09:31:00 [facility] BASIC METABOLIC PANEL 2020-08-04 Krishna Webb 09:31:00 [facility] HEPATIC FUNCTION PANEL 2020-08-04 Krishna Webb 09:31:00 [facility] PHOSPHORUS LEVEL 2020-08-04 Krishna Webb 09:31:00 [facility] MAGNESIUM LEVEL 2020-08-04 Krishna Webb [facility] 09:31:00 [facility] ESTIMATED GFR 2020-08-04 Kirshna Webb [facility] 09:31:00 [facility] HC COMPLETE BLD COUNT W/AUTO DIFF 2020-08-03 Gary Webb [facility] 10:26:00 [facility] PROTHROMBIN TIME WITH INR 2020-08-03 Krishna Webb Method ist 10:26:00 [facility] BASIC METABOLIC PANEL 2020-08-03 Krishna Webb [facility] 10:26:00 [facility] HEPATIC FUNCTION PANEL 2020-08-03 Krishna Webb [facility] 10:26:00 [facility] PHOSPHORUS LEVEL 2020-08-03 Krishna Webb [facility] 10:26:00 [facility] MAGNESIUM LEVEL 2020-08-03 Krishna Webb [facility] 10:26:00 [facility] ESTIMATED GFR 2020-08-03 Krishna Webb [facility] 10:26:00 [facility] SMEAR REVIEW 2020-08-03 Krishna Webb [facility] 10:26:00 [facility] US ABDOMINAL PARACENTESIS IMAGING 2020-08-02 Gary Webb [facility] 16:00:00 [facility] AEROBIC CULTURE 2020-08-02 Krishna Webb [facility] 15:58:00 [facility] ANAEROBIC CULTURE 2020-08-02 Krishna Webb [facility] 15:58:00 [facility] GRAM STAIN 2020-08-02 Krishna Webb [facility] 15:58:00 [facility] PROTEIN, MISC FLUID 2020-08-02 Krishna Webb [facility] 15:58:00 [facility] CELL COUNT AND DIFFERENTIAL, BODY 2020-08-02 Gary Webb [facility] FLUID 15:58:00 [facility] ALBUMIN, MISC FLUID 2020-08-02 Krishna Webb [facility] 15:58:00 [facility] HC COMPLETE BLD COUNT W/AUTO DIFF 2020-08-02 Gary Webb [facility] 09:42:00 [facility] PROTHROMBIN TIME WITH INR 2020-08-02 Krishna Webb Method ist 09:42:00 [facility] BASIC METABOLIC PANEL 2020-08-02 AshlynakarKrishna [facility] 09:42:00 [facility] HEPATIC FUNCTION PANEL 2020-08-02 DinakarKrishna [facility] 09:42:00 [facility] PHOSPHORUS LEVEL 2020-08-02 DinakarKrishna [facility] 09:42:00 [facility] MAGNESIUM LEVEL 2020-08-02 Dinakar, Krishna [facility] 09:42:00 [facility] HEMOGLOBIN A1C 2020-08-02 Roldanr, Krishna [facility] 09:42:00 [facility] ESTIMATED GFR 2020-08-02 Roldanr, Krishna [facility] 09:42:00 [facility] URINE CULTURE 2020-08-02 [facility] 04:57:00 [facility] URINALYSIS SCREEN AND MICROSCOPY, 2020-08-02 Gary Webb WITH REFLEX TO CULTURE 04:57:00 [facility] COVID-19 QUALITATIVE RT-PCR 2020-08-02 Krishna Webb [facility] odist 04:33:00 [facility] BLOOD CULTURE, AEROBIC & ANAEROBIC 2020-08-02 Elisabeth [facility] 03:34:00 [facility] HC COMPLETE BLD COUNT W/AUTO DIFF 2020-08-02 Gary [facility] 03:34:00 [facility] BASIC METABOLIC PANEL 2020-08-02 [facility]na [facility] 03:33:00 [facility] HEPATIC FUNCTION PANEL 2020-08-02 Krishna [facility] 03:33:00 [facility] MAGNESIUM LEVEL 2020-08-02 RoldanrKrishna [facility] 03:33:00 [facility] PHOSPHORUS LEVEL 2020-08-02 Krishna [facility] 03:33:00 [facility] PROTHROMBIN TIME WITH INR 2020-08-02 Krishna Webb ist 03:33:00 [facility] ESTIMATED GFR 2020-08-02 [facility] 03:33:00 [facility] PREPARE RBC 2020-08-02 [facility] 03:32:00 [facility] TYPE AND SCREEN 2020-08-02 [facility] 03:32:00 [facility] BLOOD CULTURE, AEROBIC & ANAEROBIC 2020-08-02 Elisabeth Webb 03:24:00 [facility] XR CHEST 1 VW PORTABLE 2020-08-02 Krishna Webb 01:42:40 [facility] ECG 12-LEAD 2020-08-02 Krishna Webb 00:49:23 [facility] SPIROMETRY, DIFFUSION, LUNG 2020-05-16 Leeroy Otoole odist VOLUMES, MIPS/MEPS 19:33:19 [facility] HC COMPLETE BLD COUNT W/AUTO DIFF 2020-05-16 Martha Gann or [facility] 09:30:00 Hospital BASIC METABOLIC PANEL 2020-05-16 Girma Ganntor [facility] 09:30:00 Hospital HEPATIC FUNCTION PANEL 2020-05-16 Donald Gann Methodis t 09:30:00 Hospital PHOSPHORUS LEVEL 2020-05-16 Katy [facility] 09:30:00 Hospital MAGNESIUM LEVEL 2020-05-16 Gann, [facility] 09:30:00 Hospital PROTHROMBIN TIME WITH INR 2020-05-16 Katy, Donald [facility]o [facility] 09:30:00 Hospital ESTIMATED GFR 2020-05-16 Gann, [facility] 09:30:00 Hospital IR VENOUS EMBOLIZATION 2020-05-[address] 21:34:00 Hospital XR CHEST 2 VW 2020-05-15 Tobi Otoole 18:00:00 [facility] HC COMPLETE BLD COUNT W/AUTO DIFF 2020-05-15 Martha [facility] 10:00:00 Hospital COMPREHENSIVE METABOLIC PANEL 2020-05-15 Donald Gann M ethodist 10:00:00 Hospital PHOSPHORUS LEVEL 2020-05-15 Gann, [facility] 10:00:00 Hospital MAGNESIUM LEVEL 2020-05-15 Katy [facility] 10:00:00 Hospital PROTHROMBIN TIME WITH INR 2020-05-15 Gann, Donald [facility]o dist 10:00:00 Hospital MISCELLANEOUS REFERRAL TEST 2020-05-15 Segundo Canales thodist 10:00:00 Hospital ESTIMATED GFR 2020-05-15 Gann, [facility] 10:00:00 Hospital HC COMPLETE BLD COUNT W/AUTO DIFF 2020-05-14 Martha G[facility] 10:51:00 Hospital COMPREHENSIVE METABOLIC PANEL 2020-05-14 Donald Gann ethodist 10:51:00 Hospital PHOSPHORUS LEVEL 2020-05-14 Donald Gann [facility] 10:51:00 Hospital MAGNESIUM LEVEL 2020-05-14 Donald Gann [facility] 10:51:00 Hospital PROTHROMBIN TIME WITH INR 2020-05-14 Donald Gann Metho dist 10:51:00 Hospital ESTIMATED GFR 2020-05-14 Donald aGnn [facility] 10:51:00 Hospital PROTEIN, URINE, 24 HOUR 2020-05-14 Delmi Otoole t 05:30:00 [facility] CT ABDOMEN WWO CONTRAST PELVIS W 2020-05-13 Hannah Berkowitz na [facility] CONTRAST 17:24:08 Hospital HC COMPLETE BLD COUNT W/AUTO DIFF 2020-05-13 Martha G[facility] 10:25:00 Hospital COMPREHENSIVE METABOLIC PANEL 2020-05-13 Donald Gann ethodist 10:25:00 Hospital PHOSPHORUS LEVEL 2020-05-13 Donald Gann [facility] 10:25:00 Hospital MAGNESIUM LEVEL 2020-05-13 Donald Gann [facility] 10:25:00 Hospital PROTHROMBIN TIME WITH INR 2020-05-13 Donald Gann Metho dist 10:25:00 Hospital ESTIMATED GFR 2020-05-13 Donald Gann 10:25:00 Hospital ECG 12-LEAD 2020-05-13 Tobi Otoole 04:00:37 [facility] CV RIGHT HEART CATH SELECTIVE 2020-05-13 Me Xiang thfarzaneh CORONARY 00:06:21 [facility] HLA TRANSPLANT EVALUATION 2020-05-12 Segundo Canales 21:11:00 [facility] LOW RESOLUTION FULL TYPING BY SSO 2020-05-12 Segundo Canales 21:11:00 [facility] SINGLE ANTIGEN BEADS 2020-05-12 Segundo Canales 21:11:00 Hospital C1Q CLASS 1 & 2 ANTIBODY 2020-05-12 Segundo Canales dist 21:11:00 Hospital US CAROTID DUPLEX BILATERAL 2020-05-12 Segundo Canales thodist 20:10:30 Hospital HEMOCHROMATOSIS (HFE) 3 MUTATIONS 2020-05-12 Segundo Canales 19:14:00 Hospital CYTOMEGALOVIRUS AB, IGG 2020-05-12 Segundo Canales Method ist 19:13:00 Hospital CYTOMEGALOVIRUS AB, IGM 2020-05-12 Segundo Canales ist 19:13:00 Hospital SYPHILIS TREPONEMA SCREEN WITH RPR 2020-05-12 Tremaine Canales CONFIRMATION (REVERSE ALGORITHM) 19:13:00 Hospital HEPATITIS A ANTIBODY TOTAL 2020-05-12 Segundo Canales hodist 19:13:00 Hospital HEPATITIS A ANTIBODY IGM 2020-05-12 Segundo Canaleso dist 19:13:00 Hospital HEPATITIS B SURFACE ANTIGEN 2020-05-12 Segundo Canales thodist 19:13:00 Hospital HEPATITIS B SURFACE ANTIBODY 2020-05-12 Segundo Canales ethodist 19:13:00 Hospital HEPATITIS BE AG 2020-05-12 Segundo Canales 19:13:00 Hospital HEPATITIS BE AB 2020-05-12 Segundo Canales 19:13:00 Hospital HEPATITIS C ANTIBODY 2020-05-12 Segundo Canales 19:13:00 Hospital TYPE AND SCREEN 2020-05-12 Segundo Canales 19:09:00 Hospital PARTIAL THROMBOPLASTIN TIME (PTT) 2020-05-12 Segundo Canales 19:08:00 Hospital FIBRINOGEN 2020-05-12 Segundo Canales 19:08:00 Hospital HEMOGLOBIN A1C 2020-05-12 Segundo Canales 19:07:00 Hospital DRUG VAZQUEZ 9, SER/DARRIUS, SCRN W/RFLX 2020-05-12 Segundo Canales TO CONF 19:07:00 Hospital ZINC LEVEL, SERUM 2020-05-12 Segundo Canales 18:35:00 Hospital CORTISOL, FREE BY ED/LC-MS/MS 2020-05-12 Segundo Canales 18:35:[address] CHEST WO CONTRAST 2020-05-12 Segundo Canales 17:10:00 Hospital HIV AG/AB COMBINATION 2020-05-12 Segundo Canales 15:17:00 Hospital HEPATITIS B CORE ANTIBODY TOTAL 2020-05-12 Segundo Canales 15:17:00 Hospital ANTI SMOOTH MUSCLE AB SCREEN 2020-05-12 Segundo Canales ethodist 15:17:00 Hospital T3, FREE 2020-05-12 Segundo Canales 15:17:00 Hospital CARCINOEMBRYONIC ANTIGEN (CEA) 2020-05-12 Segundo Canales 15:17:00 Hospital CANCER ANTIGEN 125 2020-05-12 Segundo Canales 15:17:00 Hospital CANCER ANTIGEN 19-9 2020-05-12 Segundo Canales 15:17:00 Hospital PROSTATE SPECIFIC ANTIGEN 2020-05-12 Segundo Canales 15:17:00 Hospital MISCELLANEOUS REFERRAL TEST 2020-05-12 Segundo Canales thodi 15:17:00 Hospital HARPREET-FELDMAN VIRUS ANTIBODY TEST 2020-05-12 Segundo Canales 15:16:00 Hospital PREALBUMIN LEVEL 2020-05-12 Segundo Cnaales 15:16:00 Hospital C-REACTIVE PROTEIN 2020-05-12 Segundo Canales 15:16:00 Hospital VITAMIN D 25 HYDROXY LEVEL 2020-05-12 Segundo Canales hodist 15:16:00 Hospital CERULOPLASMIN LEVEL 2020-05-12 Segundo Canales 15:16:00 Hospital ALPHA-1 ANTITRYPSIN LEVEL 2020-05-12 Segundo Canales odist 15:16:00 Hospital CREATININE CLEARANCE, URINE, 24 2020-05-12 Segundo Canales HOUR 15:16:00 Hospital CORTISOL LEVEL, RANDOM 2020-05-[address] 15:16:00 Hospital SERUM ELECTROPHORESIS 2020-05-12 Segundo Canales 15:16:00 Hospital LIPID PANEL 2020-05-12 Segundo [facility] 15:16:00 Hospital ESTIMATED GFR 2020-05-12 Segundo [facility] 15:16:00 Hospital HC COMPLETE BLD COUNT W/AUTO DIFF 2020-05-12 Dinakar, Satis h [facility] 10:00:00 [facility] PROTHROMBIN TIME WITH INR 2020-05-12 Dinakar, Krishna Method ist 10:00:00 [facility] BASIC METABOLIC PANEL 2020-05-12 Dinakar, Krishna [facility] 09:00:00 [facility] MAGNESIUM LEVEL 2020-05-12 Dinakar, Krishna [facility] 09:00:00 [facility] HEPATIC FUNCTION PANEL 2020-05-12 Dinakar, Krishna [facility] 09:00:00 [facility] PHOSPHORUS LEVEL 2020-05-12 Dinakar, Krishna [facility] 09:00:00 [facility] ESTIMATED GFR 2020-05-12 Dinakar, Krishna [facility] 09:00:00 [facility] BASIC METABOLIC PANEL 2020-05-11 Dinakar, Krishna [facility] 10:00:00 [facility] HC COMPLETE BLD COUNT W/AUTO DIFF 2020-05-11 Dinakar, Satis h [facility] 10:00:00 [facility] MAGNESIUM LEVEL 2020-05-11 Dinakar, Krishna [facility] 10:00:00 [facility] HEPATIC FUNCTION PANEL 2020-05-11 Dinakar, Krishna [facility] 10:00:00 [facility] PHOSPHORUS LEVEL 2020-05-11 Dinakar, Krishna [facility] 10:00:00 [facility] PROTHROMBIN TIME WITH INR 2020-05-11 Dinakar, Krishna Method ist 10:00:00 [facility] ESTIMATED GFR 2020-05-11 Dinakar, Krishna [facility] 10:00:00 [facility] BASIC METABOLIC PANEL 2020-05-10 Dinakar, Krishna [facility] 10:05:00 [facility] HC COMPLETE BLD COUNT W/AUTO DIFF 2020-05-10 Dinakar, Satis h [facility] 10:05:00 [facility] MAGNESIUM LEVEL 2020-05-10 Dinakar, Krishna [facility] 10:05:00 [facility] HEPATIC FUNCTION PANEL 2020-05-10 Dinakar, Krishna [facility] 10:05:00 [facility] PHOSPHORUS LEVEL 2020-05-10 Krishna [facility] 10:05:00 [facility] PROTHROMBIN TIME WITH INR 2020-05-10 Krishna Webb Method ist 10:05:00 [facility] ESTIMATED GFR 2020-05-10 Krishna [facility] 10:05:00 [facility] PROTHROMBIN TIME WITH INR 2020-05-09 Ronaldo Burrell Method ist 09:40:00 [facility] COMPREHENSIVE METABOLIC PANEL 2020-05-09 Ronaldo Burrell Me thodist 09:40:00 [facility] HC COMPLETE BLD COUNT W/AUTO DIFF 2020-05-09 Tobi Garcia 09:40:00 [facility] ESTIMATED GFR 2020-05-09 Temi Garciaist 09:40:00 [facility] URINE CULTURE 2020-05-08 Segundo Canalesist 23:47:00 Hospital URINALYSIS SCREEN AND MICROSCOPY, 2020-05-08 Segundo Canales WITH REFLEX TO CULTURE 23:47:00 [facility] US ABDOMINAL DOPPLER 2020-05-08 Temi Garciaist 23:15:00 [facility] US HEPATIC 2020-05-08 Tobi Garcia 23:15:00 [facility] COVID-19 QUALITATIVE RT-PCR 2020-05-08 Leeroy Garcia odrosanna 22:01:00 [facility] HC COMPLETE BLD COUNT W/AUTO DIFF 2020-05-08 Tobi Garcia 22:01:00 [facility] PROTHROMBIN TIME WITH INR 2020-05-08 Ronaldo Burrell Method ist 22:01:00 [facility] COMPREHENSIVE METABOLIC PANEL 2020-05-08 Ronaldo Burrell Me thodist 22:01:00 [facility] MAGNESIUM LEVEL 2020-05-08 Tobi Garcia 22:01:00 [facility] PHOSPHORUS LEVEL 2020-05-08 Temi Garciaist 22:01:00 [facility] ESTIMATED GFR 2020-05-08 Temi Garciaist 22:01:00 [facility] TYPE AND SCREEN 2020-05-08 Galati, Segundo S. [facility] 22:01:00 Hospital TOTAL IRON BINDING CAPACITY 2020-05-08 Segundo Canales thodist 22:01:00 Hospital ALPHA FETOPROTEIN 2020-05-08 Segundo Canales 22:01:00 Hospital THYROID STIMULATING HORMONE 2020-05-08 Segundo Canales Ok thodist 22:01:00 Hospital FERRITIN LEVEL 2020-05-08 Segundo [facility]ales [facility] 22:01:00 Hospital BLOOD CULTURE, AEROBIC & ANAEROBIC 2020-05-08 Tremaine Canales h SShelby [facility] 21:50:00 Hospital BLOOD CULTURE, AEROBIC & ANAEROBIC 2020-05-08 Tremaine Canales h SShelby [facility] 21:20:00 Hospital BASIC METABOLIC PANEL 2020-04-14 Vu, Ronna K. [facility] 10:30:00 Hospital CBC WITH PLATELET AND DIFFERENTIAL 2020-04-14 Vu, Ronna K. [facility] 10:30:00 Hospital HEPATIC FUNCTION PANEL 2020-04-14 Vu, Ronna K. [facility] 10:30:00 Hospital MAGNESIUM LEVEL 2020-04-14 Vu, Ronna K. [facility] 10:30:00 Hospital PHOSPHORUS LEVEL 2020-04-14 Vu, Ronna K. [facility] 10:30:00 Hospital PROTHROMBIN TIME WITH INR 2020-04-14 Vu, Ronna K. Method ist 10:30:00 [facility] ESTIMATED GFR 2020-04-14 Krishna Webb 10:30:00 [facility] MANUAL DIFFERENTIAL 2020-04-14 Krishna Webb 10:30:00 [facility] XR PANOREX 2020-04-13 Ilene Berkowitz 15:17:49 [facility] BASIC METABOLIC PANEL 2020-04-13 Krishna Webb 11:20:00 [facility] HC COMPLETE BLD COUNT W/AUTO DIFF 2020-04-13 Gary Webb 11:20:00 [facility] MAGNESIUM LEVEL 2020-04-13 Krishna Webb 11:20:00 [facility] HEPATIC FUNCTION PANEL 2020-04-13 Krishna Webb 11:20:00 [facility] PHOSPHORUS LEVEL 2020-04-13 Krishna Webb 11:20:00 [facility] PROTHROMBIN TIME WITH INR 2020-04-13 Dinakar, Krishna Method ist 11:20:00 [facility] ESTIMATED GFR 2020-04-13 Dinakar, Krishna [facility] 11:20:00 [facility] BASIC METABOLIC PANEL 2020-04-12 Dinakar, Krishna [facility] 11:40:00 [facility] HC COMPLETE BLD COUNT W/AUTO DIFF 2020-04-12 Dinakar, Satis h [facility] 11:40:00 [facility] MAGNESIUM LEVEL 2020-04-12 Dinakar, Krishna [facility] 11:40:00 [facility] HEPATIC FUNCTION PANEL 2020-04-12 Dinakar, Krishna [facility] 11:40:00 [facility] PHOSPHORUS LEVEL 2020-04-12 Dinakar, Krishna [facility] 11:40:00 [facility] PROTHROMBIN TIME WITH INR 2020-04-12 Dinakar, Krishna Method ist 11:40:00 [facility] ESTIMATED GFR 2020-04-12 Dinakar, Krishna [facility] 11:40:00 [facility] HC COMPLETE BLD COUNT W/AUTO DIFF 2020-04-11 Dinakar, Satis h [facility] 10:30:00 [facility] PROTHROMBIN TIME WITH INR 2020-04-11 Dinakar, Krishna Method ist 10:30:00 [facility] BASIC METABOLIC PANEL 2020-04-11 Dinakar, Krishna [facility] 10:00:00 [facility] MAGNESIUM LEVEL 2020-04-11 Dinakar, Krishna [facility] 10:00:00 [facility] HEPATIC FUNCTION PANEL 2020-04-11 Dinakar, Krishna [facility] 10:00:00 [facility] PHOSPHORUS LEVEL 2020-04-11 Dinakar, Krishna [facility] 10:00:00 [facility] ESTIMATED GFR 2020-04-11 Dinakar, Krishna [facility] 10:00:00 [facility] XR ABDOMEN 1 VW PORTABLE 2020-04-10 Ilene Berkowitz Metho dist 20:20:49 Hospital US ABDOMINAL LIMITED 2020-04-10 Ilene Berkowitz [facility] 18:30:00 Hospital HC COMPLETE BLD COUNT W/AUTO DIFF 2020-04-10 Dinakar, Satis h [facility] 11:20:00 [facility] PROTHROMBIN TIME WITH INR 2020-04-10 Dinakar, Krishna Method ist 11:20:00 [facility] BASIC METABOLIC PANEL 2020-04-10 Dinakar, Krishna [facility] 10:00:00 [facility] MAGNESIUM LEVEL 2020-04-10 Dinakar, Krishna [facility] 10:00:00 [facility] HEPATIC FUNCTION PANEL 2020-04-10 Dinakar, Krishna [facility] 10:00:00 [facility] PHOSPHORUS LEVEL 2020-04-10 Dinakar, Krishna [facility] 10:00:00 [facility] ESTIMATED GFR 2020-04-10 Dinakar, Krishna [facility] 10:00:00 [facility] BASIC METABOLIC PANEL 2020-04-09 Dinakar, Krishna [facility] 12:03:00 [facility] HC COMPLETE BLD COUNT W/AUTO DIFF 2020-04-09 Ashlynakar, Gary soto [facility] 12:03:00 [facility] MAGNESIUM LEVEL 2020-04-09 Dinakar, Krishna [facility] 12:03:00 [facility] HEPATIC FUNCTION PANEL 2020-04-09 Dinakar, Krishna [facility] 12:03:00 [facility] PROTHROMBIN TIME WITH INR 2020-04-09 Dinakar, Krishna Method ist 12:03:00 [facility] PHOSPHORUS LEVEL 2020-04-09 Dinakar, Krishna [facility] 12:03:00 [facility] ESTIMATED GFR 2020-04-09 Dinakar, Krishna [facility] 12:03:00 [facility] CBC WITH PLATELET AND DIFFERENTIAL 2020-04-08 Dinakar, Sati bonifacio [facility] 11:20:00 [facility] PROTHROMBIN TIME WITH INR 2020-04-08 Dinakar, Krishna Method ist 11:20:00 [facility] MANUAL DIFFERENTIAL 2020-04-08 Dinakar, Krishna [facility] 11:20:00 [facility] BASIC METABOLIC PANEL 2020-04-08 Dinakar, Krishna [facility] 10:00:00 [facility] MAGNESIUM LEVEL 2020-04-08 Dinakar, Krishna [facility] 10:00:00 [facility] HEPATIC FUNCTION PANEL 2020-04-08 Dinakar, Krishna [facility] 10:00:00 [facility] PHOSPHORUS LEVEL 2020-04-08 Dinakar, Krishna [facility] 10:00:00 [facility] ESTIMATED GFR 2020-04-08 Krishna Webb [facility] 10:00:00 [facility] HC COMPLETE BLD COUNT W/AUTO DIFF 2020-04-07 Gann, Hect or [facility] 07:35:00 Hospital BASIC METABOLIC PANEL 2020-04-07 Gann, Donald [facility] 07:35:00 Hospital HEPATIC FUNCTION PANEL 2020-04-07 Gann, Donald Methodis t 07:35:00 Hospital MAGNESIUM LEVEL 2020-04-07 Gann, Donald [facility] 07:35:00 Hospital PROTHROMBIN TIME WITH INR 2020-04-07 Gann, Donald Metho dist 07:35:00 Hospital ESTIMATED GFR 2020-04-07 Gann, Donald [facility] 07:35:00 Hospital HC COMPLETE BLD COUNT W/AUTO DIFF 2020-04-06 Gann, Hect or [facility] 10:00:00 Hospital BASIC METABOLIC PANEL 2020-04-06 Gann, Donald [facility] 10:00:00 Hospital HEPATIC FUNCTION PANEL 2020-04-06 Gann, Donald Methodis t 10:00:00 Hospital MAGNESIUM LEVEL 2020-04-06 Gann, Donald [facility] 10:00:00 Hospital PROTHROMBIN TIME WITH INR 2020-04-06 Gann, Donald Metho dist 10:00:00 Hospital ESTIMATED GFR 2020-04-06 Gann, Donald [facility] 10:00:00 Hospital HC COMPLETE BLD COUNT W/AUTO DIFF 2020-04-05 Gann, Hect or [facility] 11:00:00 Hospital BASIC METABOLIC PANEL 2020-04-05 Gann, Donald [facility] 11:00:00 Hospital HEPATIC FUNCTION PANEL 2020-04-05 Gann, Donald Methodis t 11:00:00 Hospital MAGNESIUM LEVEL 2020-04-05 Gann, Donald [facility] 11:00:00 Hospital PROTHROMBIN TIME WITH INR 2020-04-05 Gann, Donald Metho dist 11:00:00 Hospital ESTIMATED GFR 2020-04-05 Gann, Donald [facility] 11:00:00 Hospital HC COMPLETE BLD COUNT W/AUTO DIFF 2020-04-04 Gann, Hect or [facility] 10:05:00 Hospital BASIC METABOLIC PANEL 2020-04-04 Gann, Donald [facility] 10:05:00 Hospital HEPATIC FUNCTION PANEL 2020-04-04 Gann, Donald Methodis t 10:05:00 Hospital MAGNESIUM LEVEL 2020-04-04 Gann, Donald [facility] 10:05:00 Hospital PROTHROMBIN TIME WITH INR 2020-04-04 Gann, Donald Metho dist 10:05:00 Hospital ESTIMATED GFR 2020-04-04 Gann, Donald [facility] 10:05:00 Hospital HC COMPLETE BLD COUNT W/AUTO DIFF 2020-04-03 Gann, Hect or [facility] 11:40:00 Hospital BASIC METABOLIC PANEL 2020-04-03 Gann, Donald [facility] 11:40:00 Hospital HEPATIC FUNCTION PANEL 2020-04-03 Gann, Donald Methodis t 11:40:00 Hospital MAGNESIUM LEVEL 2020-04-03 Gann, Donald [facility] 11:40:00 Hospital PHOSPHORUS LEVEL 2020-04-03 Gann, Donald [facility] 11:40:00 Hospital PROTHROMBIN TIME WITH INR 2020-04-03 Gann, Donald Metho dist 11:40:00 Hospital ESTIMATED GFR 2020-04-03 Gann, Donald [facility] 11:40:00 Hospital TTE COMPLETE, W CONTRAST, W 2020-04-03 Ilene Berkowitz Ok thodist DOPPLER ([id number]) 04:00:00 Hospital AEROBIC CULTURE 2020-04-02 Nuria Dennis 16:39:00 Hospital ANAEROBIC CULTURE 2020-04-02 Nuria Dennis 16:39:00 Hospital GRAM STAIN 2020-04-02 Nuria Dennis 16:39:00 Hospital PROTEIN, MISC FLUID 2020-04-02 Ilene Berkowitz 16:39:00 Hospital ALBUMIN, MISC FLUID 2020-04-02 Ilene Berkowitz 16:39:00 Hospital CELL COUNT AND DIFFERENTIAL, BODY 2020-04-02 Nuria Dennis FLUID 16:38:00 Hospital BODY FLUID CONSULT 2020-04-02 Nuria Dennis 16:38:00 Hospital US ABDOMINAL PARACENTESIS IMAGING 2020-04-02 Nuria Dennis [facility] 16:35:00 Hospital CBC WITH PLATELET AND DIFFERENTIAL 2020-04-02 Girma Gann tor [facility] 10:40:00 Hospital BASIC METABOLIC PANEL 2020-04-02 Donald Gann [facility] 10:40:00 Hospital HEPATIC FUNCTION PANEL 2020-04-02 Donald Gann Methodis t 10:40:00 Hospital MAGNESIUM LEVEL 2020-04-02 Donald Gann [facility] 10:40:00 Hospital PHOSPHORUS LEVEL 2020-04-02 GannGirma kwantor [facility] 10:40:00 Hospital PROTHROMBIN TIME WITH INR 2020-04-02 Donald Gann Metho dist 10:40:00 Hospital B NATRIURETIC PEPTIDE 2020-04-02 Donald Gann [facility] 10:40:00 Hospital ESTIMATED GFR 2020-04-02 Donald Gann [facility] 10:40:00 Hospital MANUAL DIFFERENTIAL 2020-04-02 Donald Gann [facility] 10:40:00 Hospital FIBRINOGEN 2020-04-01 MartinezPrieto murphyine [facility] 21:00:00 [facility] HC COMPLETE BLD COUNT W/AUTO DIFF 2020-04-01 Martha Gann or [facility] 11:00:00 Hospital BASIC METABOLIC PANEL 2020-04-01 Donald Gann [facility] 11:00:00 Hospital HEPATIC FUNCTION PANEL 2020-04-01 Donald Gann Methodis t 11:00:00 Hospital MAGNESIUM LEVEL 2020-04-01 Donald Gann [facility] 11:00:00 Hospital PHOSPHORUS LEVEL 2020-04-01 Girma Ganntor [facility] 11:00:00 Hospital PROTHROMBIN TIME WITH INR 2020-04-01 Donald Gann Metho dist 11:00:00 Hospital HEMOGLOBIN A1C 2020-04-01 Donald Gann [facility] 11:00:00 Hospital THYROID STIMULATING HORMONE 2020-04-01 Donald Gann Met hodist 11:00:00 Hospital T4 2020-04-01 Donald Gann [facility] 11:00:00 Hospital B NATRIURETIC PEPTIDE 2020-04-01 Donald Gann [facility] 11:00:00 Hospital ALPHA FETOPROTEIN 2020-04-01 Donald Gann [facility] 11:00:00 Hospital ESTIMATED GFR 2020-04-01 Donald Gann [facility] 11:00:00 Hospital URINALYSIS, AUTOMATED WITH 2020-04-01 Donald Gann Meth odist MICROSCOPY 08:50:00 Hospital TROPONIN 2020-04-01 Morocho, Ronna-Karen [facility] 07:20:[address] [facility] [address] ABDOMEN PELVIS WO CONTRAST 2020-04-01 Dawn Figueredo thodist 06:53:40 [facility] US ABDOMINAL DOPPLER 2020-04-01 Dawn Figueredo 06:10:00 [facility] US ABDOMEN COMPLETE 2020-04-01 Dawn Figueredo 05:30:00 [facility] COVID-19 QUALITATIVE RT-PCR 2020-04-01 Dawn Figueredo odist 04:33:00 [facility] PROTHROMBIN TIME WITH INR 2020-04-01 Dawn Figueredo ist 04:26:00 [facility] PARTIAL THROMBOPLASTIN TIME (PTT) 2020-04-01 Sharlene Figueredo 04:26:00 [facility] LIPASE LEVEL 2020-04-01 Dawn Figueredo 04:26:00 [facility] TROPONIN 2020-04-01 Bailee, Ronna-Karen [facility] 04:26:00 [facility] HC COMPLETE BLD COUNT W/AUTO DIFF 2020-04-01 Morocho, Ronna-A nh [facility] 03:12:00 [facility] COMPREHENSIVE METABOLIC PANEL 2020-04-01 Morocho, Ronna-Karen M ethodist 03:12:00 [facility] TROPONIN 2020-04-01 Morocho, Ronna-Karen [facility] 03:12:00 [facility] B NATRIURETIC PEPTIDE 2020-04-01 Morocho, Ronna-Karen [facility] 03:12:00 [facility] ESTIMATED GFR 2020-04-01 Morocho, Ronna-Karen [facility] 03:12:00 [facility] US DUPLEX VENOUS LOWER EXTREMITY 2020-04-01 Figueredo, Dawn [facility] BILATERAL 02:50:00 [facility] XR CHEST 1 VW PORTABLE 2020-04-01 FigueredoElieserDawn [facility] 02:04:53 [facility] ECG 12-LEAD 2020-04-01 [facility]47 [facility] Plan of Care Planned Activity Planned Date Details Comments Source Future Scheduled 2021-10-22 INFLUENZA VACCINE (#1) [facility] 00:00:00 [code = INFLUENZA Medical Ce nter VACCINE (#1)] Future Scheduled 2021-02-[address] [facility] 00:00:00 (12+) [code = Medical Center DEPRESSION SCREENING (12+)] Future Scheduled 2021-02-21 FALLS RISK SCREENING [facility] 00:00:00 [code = FALLS RISK Medical C enter SCREENING] Future Scheduled 2018-06-[address] [facility] 00:00:00 WELLNESS (YEAR 2 or Medical Center FIRST YEAR if no IPPE) [code = MEDICARE ANNUAL WELLNESS (YEAR 2 or FIRST YEAR if no IPPE)] Future Scheduled 2016-01-29 PNEUMOCOCCAL 65+ YRS [facility] 00:00:00 (1 - PCV) [code = Medical Ce nter PNEUMOCOCCAL 65+ YRS (1 - PCV)] Future Scheduled 2001 SHINGLES VACCINES ([address] [facility] 00:00:00 of 2) [code = SHINGLES Medic al Center VACCINES (1 of 2)] Future Scheduled 1970 DTAP/TDAP/TD VACCINES [facility] 00:00:00 (1 - Tdap) [code = Medical C enter DTAP/TDAP/TD VACCINES (1 - Tdap)] Future Scheduled 1969 HEPATITIS C SCREENING [facility] 00:00:00 [code = HEPATITIS C Medical Center SCREENING] Future Scheduled 1951 COVID-19 VACCINE (#1) [facility] 00:00:00 [code = COVID-[address] VACCINE (#1)] Future Scheduled 1951 Sigmoidoscopy [code = [facility]00 Sigmoidoscopy] Medical Cent[facility] r Future Scheduled [address] [facility] 00:00:00 (combo) [code = CT Medical C enter Colonography (combo)] Future Scheduled [address] [facility] 00:[facility]:00 malignant neoplasm of Medica l Center colon (procedure) [code = 224013443] Future Scheduled [address] [facility] 00:00:00 [facility] colon (procedure) [code = 276216371] Future Scheduled [address] [facility] 00:00:00 [facility] colon (procedure) [code = 217461097] Future Scheduled [address] [facility] 00:00:00 malignant ne[facility] of [facility] Center colon (procedure) [code = 198420681] Future Scheduled 65+ [facility]OCOCCAL [facility] Test VACCINE (1 of 4 - PCV13) [code = 65+ PNEUMOCOCCAL VACCINE (1 of 4 - PCV13)] Future Scheduled COVID-19 VACCINE (1) [facility] Test [code = COVID-19 VACCINE (1)] Future Scheduled [facility] SCRE[facility]ING [facility] [code = COLONOSCOPY SCREENING] Future Scheduled SHINGLES VACCINES (#1) [facility] [code = SHINGLES VACCINES (#1)] Future Scheduled INFLUENZA [facility]ACCINE [facility] [code = INFLUENZA VACCINE] Encounters Start End Encounter Admission Attending Care Care Encounter Source Date/Time Date/Time Type Type Clinicians Facility Department ID 2020-11-29 Inpatient ER LYDIA, [facility] Gastro [id number] [facility] 18:34:02 CHIMKANM 2021-11-19 2021-11-19 Outpatient KAY, [facility] [id number] [place] 00:00:00 00:00:00 EDELMIRA [address] 2021-11-19 2021-11-19 Outpatient KAY, [facility] [id number] [place] 00:00:00 00:00:00 EDELMIRA [address] 2021-11-19 2021-11-19 Outpatient [facility] [id number] [place] 00:00:00 00:00:[address] 2021-11-19 2021-11-19 Outpatient SAHARIA, [facility] [id number] [place] 00:00:00 00:00:00 MARTI [address] 2021-11-12 2021-11-12 Outpatient SAHARIA, [facility] [id number] [place] 00:00:00 00:00:00 MARTI [address] 2021-11-04 2021-11-04 Outpatient KAY, [facility] [id number] [place] 00:00:00 00:00:00 RAFIK [address] 2021-10-30 2021-11-02 Inpatient KAY, [place] [id number] 1543 [place] 00:00:00 00:00:00 RAFIK [address] 2021-10-28 2021-10-28 Outpatient AMOL, [facility] [id number] [place] 00:00:00 00:00:00 AUBREY [address] 2021-10-27 2021-10-27 Outpatient SAHARIA, [facility] [id number] [place] 00:00:00 00:00:00 MARTI [address] 2021-10-22 2021-10-22 Outpatient KAY, [facility] [id number] [place] 00:00:00 00:00:00 RAFIK 540 Method i 2021-10-20 2021-10-20 Outpatient AMOL, [facility] [id number] [place] 00:00:00 00:00:00 AUBREY [address] 2021-10-19 2021-10-19 Outpatient FOG_Dieter_ AOSM AOSM [id number] Svetlana 00:00:00 00:00:00 Chris_LO [id number] [facility] 2021-10-19 2021-10-19 Outpatient SAHARIA, [facility] [id number] [place] 00:00:00 00:00:00 MARTI [address] 2021-10-15 2021-10-15 Outpatient KAY, [facility] [id number] [place] 00:00:00 00:00:00 RAFIK [address] 2021-10-15 2021-10-15 Outpatient KAY, [facility] [id number] [place] 00:00:00 00:00:00 RAFIK [address] 2021-10-05 2021-10-05 Outpatient SAHARIA, [facility] [id number] [place] 00:00:00 00:00:00 MARTI [address] 2021-10-01 2021-10-01 Outpatient SAHARIA, [facility] [id number] [place] 00:00:00 00:00:00 MARTI 812 Method i 2021-09-24 2021-09-28 Inpatient ELADIO, [facility] 064 [id number] [place] 00:00:00 00:00:00 KASH [address] 2021-09-24 2021-09-24 Outpatient KAY, [facility] [id number] [place] 00:00:00 00:00:00 RAFIK 128 Method i 2021-09-24 2021-09-24 Outpatient SAHARIA, [facility] [id number] [place] 00:00:00 00:00:00 MARTI 274 Method i 2021-09-21 2021-09-21 Outpatient CHAPMAN, [facility] [id number] [place] 00:00:00 00:00:00 NICHOLE 347 Method i 2021-09-20 2021-09-20 Emergency HAGER, [facility] [id number] [place] 00:00:00 00:00:00 TYESHA 393 Method i 2021-09-17 2021-09-17 Outpatient SAHARIA, [facility] [id number] [place] 00:00:00 00:00:00 MARTI 116 Method i 2021-09-14 2021-09-14 Outpatient SAHARIA, [facility] [id number] [place] 00:00:00 00:00:00 MARTI 142 Method i 2021-09-04 2021-09-10 Inpatient ELADIO, [facility] 064 [id number] [place] 00:00:00 00:00:00 KASH 031 Method i 2021-09-03 2021-09-03 Outpatient SAHARIA, [facility] [id number] [place] 00:00:00 00:00:00 MARTI [address] 2021-08-31 2021-08-31 Outpatient SAHARIA, [facility] [id number] [place] 00:00:00 00:00:00 MARTI [address] 2021-08-25 2021-08-25 Outpatient SAHARIA, [facility] [id number] [place] 00:00:00 00:00:00 MARTI 644 Method i 2021-08-20 2021-08-20 Outpatient KAY, [facility] [id number] [place] 00:00:00 00:00:00 RAFIK 773 Method i 2021-08-20 2021-08-20 Outpatient KAY, [facility] [id number] [place] 00:00:00 00:00:00 RAFIK 774 Method i 2021-08-20 2021-08-20 Outpatient [facility] [id number] [place] 00:00:00 00:00:00 640 Method i 2021-08-17 2021-08-17 [facility] [id number] [place] 00:00:00 00:00:00 RAFIK 771 Method i 2021-08-06 2021-08-11 Inpatient BLAKE, H 012 [id number] [place] 00:00:00 00:00:00 LORRAINE 924 Method i 2021-06-29 2021-08-06 Inpatient RACHID, [facility] [id number] [place] 00:00:00 00:00:00 ZORAIDA 332 Meth asif 2021-06-29 2021-06-29 Outpatient SAHARIA, H [facility] [id number] [place] 00:00:00 00:00:00 MARTI 036 Method i 2021-06-25 2021-06-25 Outpatient SAHARIA, [facility] [id number] [place] 00:00:00 00:00:00 MARTI 018 Method i 2021-06-25 2021-06-25 Outpatient SAHARIA, [facility] [id number] [place] 00:00:00 00:00:00 MARTI 163 Method i 2021-06-25 2021-06-25 [facility] [id number] [place] 00:00:00 00:00:00 151 Method i 2021-06-25 2021-06-25 Outpatient KAY, [facility] [id number] [place] 00:00:00 00:00:00 RAFIK 063 Method i 2021-06-22 2021-06-22 Outpatient SAHARIA, [facility] [id number] [place] 00:00:00 00:00:00 MARTI [address] 2021-05-27 2021-06-18 Inpatient DEVORAH, [facility] [id number] [place] 00:00:00 00:00:00 ETELVINA 952 Method i 2021-06-10 2021-06-10 Outpatient RUDDY HENNESSY [facility] [id number] [place] 00:00:00 00:00:00 162 Method i 2021-05-13 2021-05-27 Inpatient SUMAYARICristopher, [facility] [id number] [place] 00:00:00 00:00:00 MARTI 324 Method i 2021-05-05 2021-05-13 Inpatient BLAKE, [facility] [id number] [id number] [place] 00:00:00 00:00:00 LORRAINE 861 Method i 2021-02-25 2021-05-05 Inpatient SUMAYARICristopher, [facility] [id number] [place] 00:00:00 00:00:00 MARTI 082 Method i 2021-02-26 2021-02-26 Outpatient GALAKIKO, [facility] [id number] 161 [place] 00:00:00 00:00:00 SEGUNDO 869 Method i 2021-02-24 2021-02-24 Laboratory Only, Adc Test [facility] 1.2.840. 114 [id number] [facility] 13:45:00 14:00:00 Only Iker Pisano 350.1.13.10 [facility] 4.2.7.2.686 [facility] [id number] [facility] [address] 2021-02-19 2021-02-19 Outpatient GALATI, [facility] [id number] [place] 00:00:00 00:00:00 SEGUNDO [address] 2021-02-10 2021-02-10 Outpatient AMOL, [facility] [id number] [place] 00:00:00 00:00:00 AUBREY [address] 2021-01-19 2021-01-24 Inpatient NURIA DENNIS [facility] 064 [id number] [place] 00:00:00 00:00:[address] 2021-01-09 2021-01-09 Outpatient GALATI, [facility] [id number] [place] 00:00:00 00:00:00 SEGUNDO [address] 2021-01-01 2021-01-01 Outpatient GALATI, [facility] [id number] [place] 00:00:00 00:00:00 SEGUNDO [address] 2020-12-19 2020-12-19 Outpatient GALATI, [facility] [id number] [place] 00:00:00 00:00:00 SEGUNDO [address] 2020-12-16 2020-12-16 Outpatient AMOL, [facility] [id number] [place] 00:00:00 00:00:00 AUBREY [address] 2020-12-12 2020-12-12 Outpatient GALATI, [facility] [id number] [place] 00:00:00 00:00:00 SEGUNDO [address] 2020-12-02 2020-12-02 Outpatient GALATI, [facility] [id number] [place] 00:00:00 00:00:00 SEGUNDO [address] 2020-11-19 2020-11-19 Outpatient AMOL, [facility] [id number] [place] 00:00:00 00:00:00 AUBREY [address] 2020-11-13 2020-11-13 Outpatient AMOL, [facility] [id number] [place] 00:00:00 00:00:00 AUBREY [address] 2020-10-14 2020-10-22 Inpatient RONALDO [facility] 064 [id number] [place] 00:00:00 00:00:00 RADHA, [address] 2020-10-07 2020-10-07 Outpatient HOPSON, [facility] [id number] [place] 00:00:00 00:00:00 SCOTTIE [address] 2020-10-02 2020-10-02 Outpatient AMOL, [facility] [id number] [place] 00:00:00 00:00:00 AUBREY [address] 2020-10-01 2020-10-01 Emergency MARTINES, [facility] [id number] [place] 00:00:00 00:00:00 SURESH [address] 2020-09-23 2020-09-23 Jovanny Carson 1.2.840.0 [id number] Methodi 00:00:00 00:00:[address] 3.430.2.7 Hospit a .3.412925 l .8 2020-09-19 2020-09-19 Office Amol, 1.2.840.7 [id number] [facility] 10:10:33 10:57:26 Visit Aubrey 86197.1.[address] Wilfredo 3.430.2.7 Hospit a .3.841931 l .8 2020-09-19 2020-09-19 Travel 1.2.840.1 1.2.801.915 [id number] [id number] Methodi 00:00:00 00:00:[address] 3.430.2.7 0.2.7.3.698 Ho spita .3.265661 084.8 l .8 2020-08-28 2020-09-01 [facility], 1.2.840.1 [id number] [place] 00:00:00 00:00:00 Encounter DONALD 73316.1.1 [address].7 [address] .3.727476 .8 2020-08-30 2020-08-30 Surgery Hu, 1.2.840.1 [id number] 6381 [facility] 14:02:00 15:02:00 Ruddy Will [address]908.1.[address] 3.430.2.7 Hospit a .3.989494 l .8 2020-08-30 2020-08-30 Anesthesia Fang, 1.2.840.1 [id number] 21 [id number] Methodi 13:18:00 13:51:00 [place] [address] 3.430.2.7 Hospit a .3.193274 l .8 2020-08-29 2020-08-29 Documentat Mina, 1.2.840.1 [id number] 21 [id number] Methodi 00:00:00 00:00:00 ion Romaine 31793.1.[address] Zen 3.430.2.7 Hospit a .3.963528 l .8 2020-08-22 2020-08-22 Telephone Amol, 1.2.840.5 [id number] [facility] 10:02:06 15:56:55 Consult Aubrey 34577.1.[address] Wilfredo 3.430.2.7 Hospit a .3.144001 l .8 2020-08-21 2020-08-21 Travel 1.2.840.1 1.2.558.745 7927 [id number] [facility]i 00:00:00 00:00:[address] 3.430.2.7 0.2.7.3.698 Ho spita .3.713744 084.8 l .8 2020-08-20 2020-08-20 Orders Amol, 1.2.840.7 [id number] [facility] 00:00:00 00:00:00 Only Aubrey 95774.1.[address] Wilfredo 3.430.2.7 Hospit a .3.865887 l .8 2020-08-20 2020-08-20 Orders Amol, 1.2.840.3 [id number] 54043 [facility]i 00:00:00 00:00:00 Only Aubrey 35842.1.[address] Wilfredo 3.430.2.7 Hospit a .3.613055 l .8 2020-08-15 2020-08-15 Orders Parker, 1.2.840.1 [id number] 7758 Methodi 00:00:00 00:00:00 Only Segundo Bradley [address]162.1.[address] 3.430.2.7 Hospit a .3.481072 l .8 2020-08-01 2020-08-11 [facility], 1.2.840.1 [id number] [place] 00:00:00 00:00:00 Encounter KRISHNA 53587.1.1 [address] .3.449018 .8 2020-08-08 2020-08-08 Documentat Mina, 1.2.840.1 [id number] Methodi 00:00:00 00:00:00 ion Romaine 29652.1.[address] Zen 3.430.2.7 Hospit a .3.356096 l .8 2020-08-08 2020-08-08 [facility], 1.2.840.1 [id number] 0963 Methodi 00:00:00 00:00:00 Only Segundo Bradley 57216.1.[address] 3.430.2.7 Hospit a .3.159385 l .8 2020-08-07 2020-08-07 Documentat [facility], 1.2.840.1 [id number] 21 [id number] Methodi 00:00:00 00:00:00 ion Romaine 85548.1.[address] Zen 3.430.2.7 Hospit a .3.701193 l .8 2020-08-05 2020-08-05 Documentat [facility], 1.2.840.1 [id number] 21 [id number] Methodi 00:00:00 00:00:00 ion Romaine 61403.1.[address] Zen 3.430.2.7 Hospit a .3.240001 l .8 2020-08-04 2020-08-04 [facility], 1.2.840.1 [id number] [place] 00:00:00 00:00:00 Encounter SEGUNDO 10864.1.1 [address] .3.567136 .8 2020-08-01 2020-08-01 [facility], 1.2.840.1 [id number] 0805 Methodi 00:00:00 00:00:00 Only Segundo Bradley 92435.1.[address] 3.430.2.7 Hospit a .3.089052 l .8 2020-07-31 2020-07-31 Travel 1.2.840.1 1.2.879.266 6259 780758 Methodi 00:00:00 00:00:[address] 3.430.2.7 0.2.7.3.698 Ho spita .3.269812 084.8 l .8 2020-07-31 2020-07-31 Transcribe Parker, 1.2.840.1 [id number] Methodi 00:00:00 00:00:00 Orders Segundo UreñaShelby 99570.1.[address] 3.430.2.7 Hospit a .3.210876 l .8 2020-05-08 2020-05-16 [facility] Yris Garcia 1.2.840.1 [id number] Methodi 15:04:00 17:19:00 Krishna Fontaine 06682.1.[address] GannDonald brown 3.430.2.7 Hospita .3.335483 l .8 2020-05-16 2020-05-16 Documentat Fakody, 1.2.840.1 [id number] Methodi 00:00:00 00:00:00 ion Ilene 20566.1.[address] 3.430.2.7 Hospit a .3.493854 l .8 2020-05-16 2020-05-16 Telephone Mina, 1.2.840.1 [id number] [facility]i 00:00:00 00:00:[address] Zen 3.430.2.7 Hospit a .3.125952 l .8 2020-05-15 2020-05-15 Documentat Mina, 1.2.840.1 [id number] Methodi 00:00:00 00:00:00 ion Romaine 40994.1.[address] Zen 3.430.2.7 Hospit a .3.399721 l .8 2020-05-12 2020-05-12 Surgery Xiang, 1.2.840.1 [id number] 610 [id number] Methodi 20:05:00 21:05:[address] 3.430.2.7 Hospit a .3.385745 l .8 2020-05-122020-05-12 Telephone Mina, 1.2.840.1 [id number] 478 [id number] Methodi 00:00:00 00:00:[address] Zen 3.430.2.7 Hospit a .3.444402 l .8 2020-05-12 2020-05-12 Telephone Mina, 1.2.840.1 [id number] 928 [id number] Methodi 00:00:00 00:00:[address] Zen 3.430.2.7 Hospit a .3.853455 l .8 2020-05-12 2020-05-12 Telephone Alvino, 1.2.840.1 [id number] 2099 128934 Methodi 00:00:00 00:00:[address] 3.430.2.7 Hospit a .3.605060 l .8 2020-05-08 2020-05-08 Travel 1.2.840.1 1.2.389.558 5248 [id number] Methodi 00:00:00 00:00:[address] 3.430.2.7 0.2.7.3.698 Ho armando .3.010232 084.8 l .8 2020-03-31 2020-04-14 [facility] 1.2.840.1 10 [id number] Methodi 18:34:00 16:38:00 Encounter Donald Gann 26004.1.1 6 11 Nuria Dennis 3.430.2.7 Hos Krishna Cornejo .3.309987 l .8 2020-01-04 2020-01-04 Urgent Provider, [facility] 1.2.596.115 6953 5431 11:30:05 11:50:05 Care [facility] 350.1.13.10 Care Una 4.2.7.2.686 Professio [phone] nal [address] 2019-12-25 2019-12-25 Urgent Provider, [facility] 1.2.014.211 9925 3230 17:09:55 18:06:32 [facility] 350.1.13.10 [facility] 4.2.7.2.686 Moris [phone] nal 044 [address] 2018-05-01 2018-05-01 Outpatient Robin Castillo [id number] Common 15:00:00 15:00:00 [facility] Results Test Description Test Time Test Comments Results Result Comments Source SARS-CoV-2 (COVID-19) RNA [Presence] in Respiratory sp ecimen by 2021-10-30 23:33:32 MARC with probe detection Test Item Value Reference Range Interpretation Comme nts SARS-CoV-2 (COVID-19) RNA [Presence] in Respiratory specimen by Not detected MARC with probe detection (test code = 85545-2) Whether patient is employed in a healthcare setting (test code = Un known 91894-0) Whether the patient has symptoms related to condition of interest U nknown (test code = 19592-4) Whether the patient was hospitalized for condition of interest Unkn own (test code = 94953-2) Whether the patient was admitted to intensive care unit (ICU) for U nknown condition of interest (test code = 91860-4) Whether patient resides in a congregate care setting (test code = U nknown 33148-3) status (test code = 73418-1) Unknown Date and time of symptom onset (test code = 32260-8) Unknown SARS-CoV-2 (COVID-19) RNA [Presence] in Respiratory specimen by MARC with probe [id number] 19:52:42 Test Item Value Reference Range Interpretation Comments SARS-CoV-2 (COVID-19) RNA Not detected [Presence] in Respiratory specimen by MARC with probe detection (test code = 32452-9) Whether patient is employed in a Unknown healthcare setting (test code = 65613-8) Whether the patient has symptoms Unknown related to condition of interest (test code = 46842-4) Whether the patient was Unknown hospitalized for condition of interest (test code = 92512-7) Whether the patient was admitted Unknown to intensive care unit (ICU) for condition of interest (test code = 14350-5) Whether patient resides in a Unknown congregate care setting (test code = 68235-8) status (test code = Unknown 52371-8) Date and time of symptom onset Unknown (test code = 07977-5) SARS-CoV-2 (COVID-19) RNA [Presence] in Respiratory specimen by MARC with probe [id number] 19:38:51 Test Item Value Reference Range Interpretation Comments SARS-CoV-2 (COVID-19) RNA Not detected [Presence] in Respiratory specimen by MARC with probe detection (test code = 44304-4) Whether patient is employed in a Unknown healthcare setting (test code = 03370-0) Whether the patient has symptoms Unknown related to condition of interest (test code = 32663-0) Whether the patient was Unknown hospitalized for condition of interest (test code = 18681-8) Whether the patient was admitted Unknown to intensive care unit (ICU) for condition of interest (test code = 62570-2) Whether patient resides in a Unknown congregate care setting (test code = 75896-4) status (test code = Unknown 65866-0) Date and time of symptom onset Unknown (test code = 17582-1) SARS-CoV-2 (COVID-19) RNA [Presence] in Respiratory specimen by MARC with probe [id number] 17:50:30 Test Item Value Reference Range Interpretation Comments SARS-CoV-2 (COVID-19) RNA Not detected [Presence] in Respiratory specimen by MARC with probe detection (test code = 79829-3) Whether patient is employed in a Unknown healthcare setting (test code = 73598-9) Whether the patient has symptoms Unknown related to condition of interest (test code = 58029-1) Whether the patient was Unknown hospitalized for condition of interest (test code = 62524-0) Whether the patient was admitted Unknown to intensive care unit (ICU) for condition of interest (test code = 70162-0) Whether patient resides in a Unknown congregate care setting (test code = 05808-2) status (test code = Unknown 96545-3) Date and time of symptom onset Unknown (test code = 80240-3) SARS-CoV-2 (COVID-19) RNA [Presence] in Respiratory specimen by MARC with probe [id number] 23:21:26 Test Item Value Reference Range Interpretation Comments SARS-CoV-2 (COVID-19) RNA Not detected [Presence] in Respiratory specimen by MARC with probe detection (test code = 42435-0) Whether patient is employed in a Unknown healthcare setting (test code = 78015-5) Whether the patient has symptoms Unknown related to condition of interest (test code = 40182-6) Whether the patient was Unknown hospitalized for condition of interest (test code = 28256-4) Whether the patient was admitted Unknown to intensive care unit (ICU) for condition of interest (test code = 19809-6) Whether patient resides in a Unknown congregate care setting (test code = 10174-8) status (test code = Unknown 32290-1) Date and time of symptom onset Unknown (test code = 38346-2) SARS-CoV-2 (COVID-19) RNA [Presence] in Respiratory specimen by MARC with probe nfvayubhq0826-86-51 18:46:50 Test Item Value Reference Range Interpretation Comments SARS-CoV-2 (COVID-19) RNA Not detected [Presence] in Respiratory specimen by MARC with probe detection (test code = 10880-6) Whether patient is employed in a Unknown healthcare setting (test code = 74814-4) Whether the patient has symptoms Unknown related to condition of interest (test code = 25753-7) Whether the patient was Unknown hospitalized for condition of interest (test code = 15831-0) Whether the patient was admitted Unknown to intensive care unit (ICU) for condition of interest (test code = 62181-5) Whether patient resides in a Unknown congregate care setting (test code = 38814-0) status (test code = Unknown 72256-0) Date and time of symptom onset Unknown (test code = 43734-8) SARS-CoV-2 (COVID-19) RNA [Presence] in Respiratory specimen by MARC with probe [id number] 22:07:05 Test Item Value Reference Range Interpretation Comments SARS-CoV-2 (COVID-19) RNA Not detected [Presence] in Respiratory specimen by MARC with probe detection (test code = 75757-4) Whether patient is employed in a Unknown healthcare setting (test code = 02064-6) Whether the patient has symptoms Unknown related to condition of interest (test code = 24779-0) Whether the patient was Unknown hospitalized for condition of interest (test code = 01615-5) Whether the patient was admitted Unknown to intensive care unit (ICU) for condition of interest (test code = 96806-5) Whether patient resides in a Unknown congregate care setting (test code = 21248-4) status (test code = Unknown 59280-3) Date and time of symptom onset Unknown (test code = 43105-9) SARS-CoV-2 (COVID-19) RNA [Presence] in Respiratory specimen by MARC with probe qgmzptfab9806-52-47 16:57:41 Test Item Value Reference Range Interpretation Comments SARS-CoV-2 (COVID-19) RNA Not detected [Presence] in Respiratory specimen by MARC with probe detection (test code = 34285-6) Whether patient is employed in a Unknown healthcare setting (test code = 84932-0) Whether the patient has symptoms Unknown related to condition of interest (test code = 52968-1) Whether the patient was Unknown hospitalized for condition of interest (test code = 73094-4) Whether the patient was admitted Unknown to intensive care unit (ICU) for condition of interest (test code = 09919-5) Whether patient resides in a Unknown congregate care setting (test code = 67232-3) status (test code = Unknown 29463-3) Date and time of symptom onset Unknown (test code = 58807-9) SARS-CoV-2 (COVID-19) RNA [Presence] in Respiratory specimen by MARC with probe [id number] 22:16:41 Test Item Value Reference Range Interpretation Comments SARS-CoV-2 (COVID-19) RNA Not detected Not-Detected [Presence] in Respiratory specimen by MARC with probe detection (test code = 53901-6) Whether patient is employed in a healthcare setting (test code = 49072-5) Whether the patient has symptoms related to condition of interest (test code = 50435-1) Patient was hospitalized because of this condition (test code = 96121-6) Whether the patient was admitted to intensive care unit (ICU) for condition of interest (test code = 03699-3) Whether patient resides in a congregate care setting (test code = 83340-6) SARS-CoV-2 (COVID-19) RNA [Presence] in Respiratory specimen by MARC with probe [id number] 11:41:41 Test Item Value Reference Range Interpretation Comments SARS-CoV-2 (COVID-19) RNA Not detected Not-Detected [Presence] in Respiratory specimen by MARC with probe detection (test code = 85965-3) Whether patient is employed in a healthcare setting (test code = 23128-4) Whether the patient has symptoms related to condition of interest (test code = 21054-8) Patient was hospitalized because of this condition (test code = 15872-4) Whether the patient was admitted to intensive care unit (ICU) for condition of interest (test code = 07100-5) Whether patient resides in a congregate care setting (test code = 50153-8) SARS-CoV-2 (COVID-19) RNA [Presence] in Respiratory specimen by MARC with probe efsfzwkwy5385-48-23 13:59:05 Test Item Value Reference Range Interpretation Comments SARS-CoV-2 (COVID-19) RNA Not detected Not-Detected [Presence] in Respiratory specimen by MARC with probe detection (test code = 50349-7) Whether patient is employed in a healthcare setting (test code = 93770-4) Whether the patient has symptoms related to condition of interest (test code = 48050-4) Patient was hospitalized because of this condition (test code = 87763-2) Whether the patient was admitted to intensive care unit (ICU) for condition of interest (test code = 55746-2) Whether patient resides in a congregate care setting (test code = 33898-3) SARS-CoV-2 (COVID-19) RNA [Presence] in Respiratory specimen by MARC with probe [id number] 14:53:01 Test Item Value Reference Range Interpretation Comments SARS-CoV-2 (COVID-19) RNA Not detected Not-Detected [Presence] in Respiratory specimen by MARC with probe detection (test code = 97545-0) Whether patient is employed in a healthcare setting (test code = 08735-7) Whether the patient has symptoms related to condition of interest (test code = 07139-6) Patient was hospitalized because of this condition (test code = 71548-8) Whether the patient was admitted to intensive care unit (ICU) for condition of interest (test code = 72357-3) Whether patient resides in a congregate care setting (test code = 23064-3) SARS-CoV-2 (COVID-19) RNA [Presence] in Respiratory specimen by MARC with probe cwcdzloku3674-15-17 21:09:55 Test Item Value Reference Range Interpretation Comments SARS-CoV-2 (COVID-19) RNA Not detected Not-Detected [Presence] in Respiratory specimen by MARC with probe detection (test code = 81436-3) Whether patient is employed in a healthcare setting (test code = 02326-9) Whether the patient has symptoms related to condition of interest (test code = 45509-5) Patient was hospitalized because of this condition (test code = 94900-0) Whether the patient was admitted to intensive care unit (ICU) for condition of interest (test code = 46085-3) Whether patient resides in a congregate care setting (test code = 48784-2) SARS-CoV-2 (COVID-19) RNA [Presence] in Respiratory specimen by MARC with probe [id number] 04:07:49 Test Item Value Reference Range Interpretation Comments SARS-CoV-2 (COVID-19) RNA Not detected Not-Detected [Presence] in Respiratory specimen by MARC with probe detection (test code = 85256-7) Whether patient is employed in a healthcare setting (test code = 33586-6) Whether the patient has symptoms related to condition of interest (test code = 74985-9) Patient was hospitalized because of this condition (test code = 66238-3) Whether the patient was admitted to intensive care unit (ICU) for condition of interest (test code = 50606-8) Whether patient resides in a congregate care setting (test code = 80789-9) SARS-CoV-2 (COVID-19) RNA [Presence] in Respiratory specimen by MARC with probe [id number] 15:52:14 Test Item Value Reference Range Interpretation Comments SARS-CoV-2 (COVID-19) RNA Not detected Not-Detected [Presence] in Respiratory specimen by MARC with probe detection (test code = 61342-4) Whether patient is employed in a healthcare setting (test code = 61254-7) Whether the patient has symptoms related to condition of interest (test code = 39498-7) Patient was hospitalized because of this condition (test code = 39483-2) Whether the patient was admitted to intensive care unit (ICU) for condition of interest (test code = 35567-9) Whether patient resides in a congregate care setting (test code = 25024-0) SARS-CoV-2 (COVID-19) RNA [Presence] in Respiratory specimen by MARC with probe pcknktbwb7064-32-61 09:56:56 Test Item Value Reference Range Interpretation Comments SARS-CoV-2 (COVID-19) RNA Not detected Not-Detected [Presence] in Respiratory specimen by MARC with probe detection (test code = 54332-7) Whether patient is employed in a healthcare setting (test code = 35613-0) Whether the patient has symptoms related to condition of interest (test code = 71091-9) Patient was hospitalized because of this condition (test code = 24223-4) Whether the patient was admitted to intensive care unit (ICU) for condition of interest (test code = 69526-4) Whether patient resides in a congregate care setting (test code = 86118-5) SARS-CoV-2 (COVID-19) RNA [Presence] in Respiratory specimen by MARC with probe murlargbj2224-31-70 04:03:50 Test Item Value Reference Range Interpretation Comments SARS-CoV-2 (COVID-19) RNA Not detected Not-Detected [Presence] in Respiratory specimen by MARC with probe detection (test code = 78980-5) Whether patient is employed in a healthcare setting (test code = 91429-8) Whether the patient has symptoms related to condition of interest (test code = 70460-3) Patient was hospitalized because of this condition (test code = 46740-3) Whether the patient was admitted to intensive care unit (ICU) for condition of interest (test code = 34808-3) Whether patient resides in a congregate care setting (test code = 48275-9) Transthoracic Echocardiogram Complete, (w Contrast, Strain and 3D if needed) 2020-08-30 21:00:00 Echocardiography Report [id number] [address] Pat.Name: SRIKANTH TOMAS Pat.ID: [id number] .Date: 08/30/2020 Refer.MD: DOUG ALONSO MD, SEGUNDO CANALES MDExamTime: 9:52:00 AM Study Type:Routine Echo Height: 70in Weight: 213lb BSA: 2.15 m2 Age: 12 1950,70Y Sex: MALE BP: 90/55 HR: 53 bpm Sonogrphr: YOMI Santos Pat. Stat.:Inpatient Room: D1065 Study Status:Final Echo Event ID:[id number] Order ID: [id number] Reason for Study:pre liver transplantProcedures: 2D Echo, Colorflow Doppler, Portable, Intravenous LumasonContrast, Intravenous Saline ContrastRace: C SUMMARY: LV EF isnormal.Estimated EF is 65-69%RV systolic function is normal.Delayed contrast appears in the left atrium after 5 cardiac cyclesconsistent with transpulmonary shunting. The shunt is significant. --------- FINDINGS: LV: LV size is normal. LV EFis normal. Overall wall motion is normal. Estimated [...] calcification.PV: No structural PV abnormalities noted.TV: No structuralTV abnormalities noted.Other: Estimated PA systolic pressure is 32 mmHg, assuming a mean RAP of 5 mmH g. MEASUREMENTS: ------- 2DParasternal Long [place] Ao An 2 cm LVPWd 0.86 cm [...] HR 54 bpm Signed 08/30/2020 04:00 PMAndrew Dorsey M.D.Interface, Radiology Results In - 08/30/2020 4:00 PM CDTFormatting of this note might bedifferent from the original. Echocardiography Report [id number] [address] Pat.Name: SRIKANTH TOMAS.ID: [id number] .Date: 08/30/2020 Refer.MD: DOUG ALONSO MD, SEGUNDO CANALES MDExam Time: 9:52:00 AM Study Type:Routine Echo Height: 70in Weight: 213lb BSA:2.15 m2 Age: 12 1950,70Y Sex: MALE BP: 90/55 HR: 53 bpm Sonogrphr: Ava Feldman [facility] Pat. [facility] t.:Inpatient Room: D106 Study Status:Final Echo Event ID:[id number] Order ID: [id number] Reason forStudy:pre liver transplantProcedures: 2D Echo, Colorflow Doppler, Portable, [...] normal.YOVANY: No pericardial effusion.Cntrst: Delayed contrast appears inthe left atrium after 5 cardiac cycles consistent with transpulmonary shunting.AV: Mild thickening and calcification of AV leaflets.MV: Mild mitral annular calcification.PV: No structural PV abnormalities noted.TV: No structural TV abnormalities noted.Other: Estimated PA systolic pressure is 32 mmHg, assuming a mean RAP of 5 mmHg. MEASUREMENTS: 2DParasternal Long [place] Ao An 2 cm LVPWd 0.86 cm [...] DOPPLERAV For Flow/LIZETTE AV pkVel 261 cm/s (100- 170) AVTVI 56 cm AV mnVel 160 cm/s AVpkAcRt 5420 cm/s2 AV pkPG 27 mmHg AV DeRt 747 cm/s2 AV Mean G 13 mmHgAV Area 2.1 cm2 (3-5) AV ET 350 msec AV AC 100 msec (83-118) AV AC/ET 0.29 Aortic Valve AV DI 0.66 LVOT For Flow LVOT TVI 37 cm LVOTpkPG 10 mmHg LVOT SV 116 ml LVOTmnPG 5.1 mmHg LVOTpkVel 158 cm/s LVOTSVi 54 ml/m2 LVOT CI 2.9 l/m/m2 LVOT CO 6.3 l/min LVOT Stroke Vol & Cardiac Out HR 54 bpm Scwhpd5108/30/2020 04:00 Flavio Irizarry M.D.[facility] RBC, 2 [id number] 20:43:00 Test Item Value Reference Range Interpretation Comments Product name (test code Red Blood Cells -1, = 25) Leukored Unit number (test code = [id number]) Product code (test code A4245L68 = 3092) Dispense status (test Transfused code = 24) Blood expiration date (test code = 302) Blood type code (test code = 308) Blood type (test code = A POSITIVE 1314) Compatibility (test code Compatible = 6400) Tobi Balderas Abdominal Fpzrdod4626-08-40 05:02:33EXAMINATION: US ABDOMINAL DOPPLER CLINICAL HISTORY: GI bleed, Portal hypertension, rule out portal vein clot COMPARISON: 08/09/2020 TECHNIQUE: Ortiz scale, color Doppler and spectral waveform analysis ofthe hepatic vasculature. IMPRESSION: 1. PORTAL VEINS: *Main [...] Artery: The right hepatic artery is patent.*Left Hepatic [...] AM CDT EXAMINATION: US ABDOMINAL DOPPLERCLINICAL HISTORY: G I bleed, Portal hypertension, rule out portal vein clotCOMPARISON: 08/09/2020TECHNIQUE: Ortiz scale, color Doppler and spectral waveform analysis of the hepatic vasculature.IMPRESSION:1. PORTAL VEINS: *Main portal vein: The main portal vein is patent with limited flow. Main portal vein measures 1 cm in d iameter. Portal vein velocity is 16.3 cm/sec. *Left Portal Vein: The left portal vein is patent but diminutive.*Right Portal Vein:The right portal vein is not well seen.2. HEPATIC VEINS: *Right HepaticVein: The right hepatic vein is patent.*Middle Hepatic Vein: The middle hepatic vein is patent.*LeftHepatic Vein: The left hepatic vein is patent.3. HEPATIC ARTERIES: *Right Hepatic Artery: The right hepatic artery is patent.*Left Hepatic Artery: The left hepatic artery is patent.4. IVC: The inferiorvena cava is patent.5. SMV: The superior mesenteric vein is not well seen.6. SPLENIC ARTERY/VEINS: *Splenic Artery/Vein at Spleen: The splenic artery/vein at the spleen are patent.*Splenic Artery/Vein at Midline: The splenic artery/vein at the midline are not well seen.Liver is cirrhotic with heterogeneous echotexture. There is small ascites and cholelithiasis.[facility] 12 [id number] 21:20:43 Test Item Value Reference Range Interpretation [...] 270) EKG impression (test code = 273) [facility] [id number] 09:11:22 Test Item Value Reference Range Interpretation Comments Urine culture (test code = SEE COMMENT [id number]) [facility] AliceType and [id number] 23:06:00 Test Item Value Reference Range Interpretation Comments ABO grouping (test code = 883-9) A Rh type (test code = 57661-0) POS Antibody screen (gel) (test code = NEG 890-4) [facility] AliceCRITICAL [id number] 22:17:31PateRhoda lazaro MD 09/16/2020 10:55 AMCritical CarePerformed by: Rhoda Calero MDAuthorized by: Rhoda Calero MD Critical care provider statement: Critical care time(minutes): 40 Critical care time was exclusive of: Separately billable procedures and treating otherpatients and teaching time Critical care was necessary to treat or prevent imminent or life-threatening deterioration of the following conditions: Circulatory failure [...] 'yes' if you are taking over critical care for this patient from another provider.: no Comments: Critical care time was spent in evaluating the patient, reviewing the diagnostic data, discussing with any family present. This patient has a high probability of sudden, clinically significant deterioration, which requires the highest level physician preparednessto intervene urgently. I managed life- threatening and/or end organ supporting interventions that require frequent physician assessment. I devoted my full attention to the direct care of this patient for the period of time of I have indicated. Time spent with family or surrogates is only included the patient was incapable of providing the necessary information or participating in the medical decision making. Time devoted to any procedures is billed separately and not included in critical care time. [facility] ED Preliminary Interpretation - Not an [id number] 22:17:31PateRhoda lazaro MD 09/16/2020 10:55 [facility] ED Preliminary Interpretation - Not an OrderPerformed by: Rhoda Calero MDAuthorized by: Rhoda Calero MD ECG reviewed by ED Physician in the absence of a track welder: yes Rate: ECG rate: 72 ECG rate assessment: normal Rhythm: Rhythm: sinus rhythm ST segments: ST segments: NormalT waves: T waves: non-specific Comments: No STEMIMethodist HospitalParathyroid hormone 2020-08-21 19:22:00 Test Item Value Reference Range Interpretation Comments PTH (test code = 2731-8) 51 pg/mL 14-64 JUAN (test code = JUAN) RAC (test code = RAC) [facility] AliceABN TEST [id number] 19:22:00 Test Item Value Reference Range Interpretation Comments ABN test refused (test code = 8251-1) JUAN (test code = JUAN) RAC (test code = RAC) [facility] Abdominal Paracentesis Sqsrwpr1656-13-09 23:01:27 ProcedureUltrasound-guided paracentesis. Clinical IndicationAscites. AnesthesiaLidocaine 1%. [...] anesthetic. Using real-time ultrasound guidance, a 5 Zambian catheter was advanced successfully into the peritoneal cavity with return of cloudy yellow ascites. A total cx0186 mL of fluid was removed. The catheter was removed and hemostasis was achieved with manual compression. Ultrasound imaging over the abdomen following completion of the paracentesis demonstrated no significant residual ascites. The patient tolerated the procedure well. ComplicationsNone. Impression: Successful ultrasound-guided paracentesis with removal of 3000 ml of cloudy yellow ascites. [facility]-[id number] Interface, Radiology Results - 08/09/2020 6:04 PM [...] anesthetic. Using real-time ultrasound guidance, a 5 Zambian catheter was advanced successfully into the peritoneal [...] of 3000 ml of cloudy yellow ascites. [facility]-[id number] [facility] [id number] 02:25:54 Test Item Value Reference Range Interpretation Comments POC glucose (test code = 43072-6) 174 mg/dL 65-99 H Lab Interpretation (test code = Abnormal 75406-5) [facility] Abdominal Lfhqami4070-77-06 23:07:12EXAMINATION: US ABDOMINAL LIMITED HISTORY: 70 years old Male. Abdominal swelling ascites suspected, see if enough fluid for paracentesis. COMPARISON: None available. IMPRESSION: Four-quadrant sonographic survey for ascites is performed. There is a small to moderate volume of ascites, greatest in the right upper and right lower quadrants. [facility]-[id number] Interface, Radiology Results Incoming 08/06/2020 6:10 PM CDT EXAMINATION: US ABDOMINAL LIMITED HISTORY: 70 years old Male. Abdominal swelling ascites suspected, see if enough fluid for paracentesis.COMPARISON: None available.IMPRESSION: Four-quadrant sonographic survey for ascites is pe rformed. There is a small to moderate volume of ascites, greatest in the right upper and right lowerquadrants.[facility]-[id number] HospitalDirect Katie' (MIRZA)2020-08-06 12:24:00 Test Item Value Reference Range Interpretation Comments Ztuc-CvP-P8w Polyspecific (test code = NEG 2585) [facility] AliceXR Chest 1 Vw [id number] 01:55:54EXAMINATION: XR CHEST 1 VW PORTABLE CLINICAL HISTORY: fever COMPARISON: 05/15/2020 IMPRESSION: Heart a nd mediastinum stable. Bones are osteopenic. Low lung volumes, with mild perihilar interstitial prominence and no definite consolidation noted. [facility]- [id number] Interface, Radiology Results Incoming - 08/01/2020 8:59 PM CDT EXAMINATION: XR CHEST 1 VW PORTABLECLINICAL HISTORY: feverCOMPARISON: 05/15/2020IMPRESSION:Heart and mediastinum stable.Bones are osteopenic.Low lung volumes, with mild perihilar interstitial prominence and no definite consolidation noted. [facility]-[id number] HospitalBLOOD [id number] 13:28:00 Test Item Value Reference Range Interpretation Comments CULTURE (BEAKER) (test No growth in 5 days code = 1095) HEPATIC FUNCTION [id number] 10:13:00 Test Item Value Reference Range Interpretation [...] (test code = 26 U/L 6-55 347) [employer] ID - DBSpecimen slightly ictericBASIC METABOLIC [id number] 05:31:00 Test Item Value Reference Range Interpretation [...] S NOT APPLICABLE FOR DIALYSIS PATIEN TS. [employer] ID - DBSpecimen slightly ictericCBC W/PLT COUNT [...] (BEAKER) (test code = 2801) COMPREHENSIVE METABOLIC [id number] 00:14:00 Test Item Value Reference Range Interpretation [...] S NOT APPLICABLE FOR DIALYSIS PATIEN TS. [employer] ID - DBSpecimen moderately [id number] 00:10:00 Test Item Value Reference Range Interpretation Comments MAGNESIUM (BEAKER) (test code = 1.9 mg/dL 1.6-2.6 627) [employer] ID - [id number] 00:03:00 Test Item Value Reference Range Interpretation Comments AMMONIA (BEAKER) (test code = 348) 60 mol/L 18-72 [employer] ID - [id number] 23:58:00 Test Item Value Reference Range Interpretation Comments PARTIAL THROMBOPLASTIN TIME 36.7 seconds 22.5-36.0 H (BEAKER) (test code = 760) PROTHROMBIN TIME/[id number] 23:57:00 Test Item Value Reference Range Interpretation Comments PROTIME (BEAKER) 16.8 seconds 11.9-14.2 H (test code = 759) INR (BEAKER) (test 1.42 See_Comment [Automat ed message] code = 370) The system [employer] generated this result transmitted ref erence range: <=5.90. The reference range was not used to int erpret this result as normal/abnormal . Effective 07/19/2018: PT Reference Range ChangeNew: 11.9-14.2 Previous: 11.7- 14.7RECOMMENDED COUMADIN/WARFARIN INR THERAPY RANGESSTANDARD DOSE: 2.0-3.0 Includes: PROPHYLAXIS for venous thrombosis, systemic embolization; TREATMENT for venous thrombosis and/or pulmonary embolus.HIGH RISK: Target INR is 2.5-3.5 for patients wiht mechanical heart valves.POCT-GLUCOSE [id number] 21:39:00 Test Item Value Reference Range Interpretation Comments POC-GLUCOSE METER 131 mg/dL 70-110 H : TESTED A T [facility] 6720 (MILDRED) (test code = LEANNE Rob [facility], 1538) [address]: [employer]/Techni domingo ID = [id number] for Darrius Harmon C1Q class 1 & 2 [id number] 21:15:13 Test Item Value Reference Range Interpretation Comments Interpretation (test code Unable to analyze = [id number]) due to high background Case number (test code = [id number]) C1Q class 1 & 2 antibody See link below for (test code = 1166640) PDF Lab Report [facility] AliceLow resolution full typing by [id number] 20:49:43 Test Item Value Reference Range Interpretation Comments Interpretation (test code = 8452259) Case number (test code = [id number]) Low resolution full typing See link below for by SSO (test code = 1359) PDF Lab Report [facility] Alice[facility] Venous Jfisqprqkeri1080-37-12 20:29:30Performing Bryce Avina Anesthesia TypeModerate sedation was administered by the procedure nurse and monitored by the procedure physician for a total dydw-bv-aigj sedation time of 118 minutes. Lidocaine 1% was also used for local anesthetic. Pre Procedure DiagnosisBleeding gastric varices in the setting of portal hypertension Post Procedure DiagnosisAs above ProcedureCoil-assisted retrograde transvenous obliteration (CARTO) TechniqueWritten informed consent [...] fluoroscopy. Using a combination of a 5 FrenchC2 catheter and a 0.035 inch Glidewire, the left renal vein was accessed. A left renal venogram demonstrated a patent left renal vein. Next, an aberrant varix was appreciated off of the left renal vein. Venogram did not demonstrate access to the gastric varices.Ultimately, an additional abnormal connection was accessed more medially along the superior aspect of the left renal vein. Contrast injectiondemonstrated supply to the left phrenic in addition to dilated gastric varices. This vein appeared to correlate with findings on CT. The right common femoral venous access was then upsized to a 10 Zambian vascular sheath. Over a wire, the vascular sheath was advanced into the abnormal varix. Next, a 14mm balloon was partially inflated in the proximal portion of the varix. After inflation, a balloon occlusion antegrade venogram was performed, which demonstrated both prominent phrenic veins in addition to the dilated perigastric varices. This is best seen on series 8 image 302. The balloon was removed over a wire. Next, a 5 [place]ambian glide catheter was placed proximally within the varix while a 2.8 [place]ambian renegade high flow microcatheter was utilized access the dilated perigastric/gastric veins. Contrast injection confirmed access to the abnormal veins as seen on series 11. Multiple 0.035 inch Kerline detachable coils were placed in the proximal varix. Contrast injection through the microcatheter was utilized to ensure absence of retrograde flow back into the left renal vein. Once retrograde flow wasconfirmed to be occluded, sclerotherapy was performed to stasis using 3% sodium tetradecyl sulfate (STS) foam and then subsequent thick Gelfoam slurry. Once stasis was confirmed, the renegade high flowmicrocatheter was removed. All subsequent wires, catheters, and [...] stasis of dilated perigastric varices as described above.[facility]-[id number] Interface, Radiology Results Incoming - 05/17/2020 3:32 PM CDT Performing RadiologistProvidence Va Medical Centergraciela TariqNonpat AnesthesiaTypeModerate sedation was administered by the procedure nurse and monitored by the procedure physician for a total njrj-bg-yjce sedation time of 118 minutes. Lidocaine 1% [...] femoral vein. A 0.018 inch guidewire was advancedcentrally under fluoroscopy. The needle was removed, and a micropuncture sheath system was then placed over the guidewire. Under ultrasound guidance, documentation of vessel patency, needle access withpermanent recording, and reporting are performed followed by placement of a sheath in the right common femoral vein. The inner dilator and guidewire were then removed, and a 0.035 inch superstiff Amplatz wire was advanced through the micropuncture sheath and into the inferior vena cava under fluoroscopy. Using a combination of a 5 [place]ambian C2 catheter and a 0.035 inch Glidewire, the left renal vein wasaccessed. A left renal venogram demonstrated a patent left renal vein. Next, an aberrant varix was appreciated off of the left renal vein. Venogram did not demonstrate access to the gastric varices.Ulti mately, an additional abnormal connection was accessed more medially along the superior aspect of the left renal vein. Contrast injection demonstrated supply to the left phrenic in addition to dilated gastric varices. This vein appeared to correlate with findings on CT.The right common femoral venous access was then upsized to a 10 Zambian vascular sheath. Over a wire, the vascular sheath was advancedinto the abnormal varix. Next, a 14 mm balloon was partially inflated in the proximal portion of thevarix. After inflation, a balloon occlusion antegrade venogram was performed, which demonstrated both prominent phrenic veins in addition to the dilated perigastric varices. This is best seen on series8 image 302.The balloon was removed over a wire. Next, a 5 [place]ambian glide catheter was placed proximally within the varix while a 2.8 [place]ambian renegade high flow microcatheter was utilized access the dilated perigastric/gastric veins. Contrast injection confirmed access to the abnormal veins as seen on series 11.Multiple 0.035 inch [place] detachable coils were placed in the proximal varix. Contrast injection through the microcatheter was utilized to ensure absence of retrograde flow back into the left renal vein. Once retrograde flow was confirmed to be occluded, sclerotherapy was performed to stasis using 3% sodium tetradecyl sulfate (STS) foam and then subsequent thick Gelfoam slurry. Once stasis wasconfirmed, the renegade high flow microcatheter was removed. All subsequent wires, catheters, and sheaths were removed and hemostasis was obtained with manual compression. The patient tolerated the procedure well.Radiation DoseKa,r = 118 mGy ComplicationsNone Specimens RemovedNone Estimated Blood LossLess than 10 mL Blood/Blood Products AdministeredNone Grafts/ImplantsAs described in the above reportImpression: 1. Balloon assisted antegrade venogram demonstrated dilated perigastric varices emanating from the left renal vein.2. Successful coil assisted retrograde transvenous obliteration (CARTO), avariant of balloon occlusion retrograde transvenous obliteration (BRTO), to stasis of dilated perigastric varices as described above.[facility]-[id number] HospitalSpirometry, diffusion, lung volumes, MIPS/[id number] 19:33:19 Test Item Value Reference Range Interpretation [...] (test code = See_Comment [Autom ated message] 5406) The system [employer] generated this result transmitted ref erence range: 29.11 - 136.03 cmH2O. The refe rence range was not u sed to interpret this result as normal/abnor mal. MEP Pre (test code = See_Comment [Autom ated message] 5433) The system [employer] generated this result transmitted ref erence range: 83.46 - 180.80 cmH2O. The refe rence range was not u sed to interpret this result as normal/abnor mal. DLCO Pre (test code See_Comment [Automa almita message] = 5452) The system [employer] generated this result transmitted ref erence range: 18.41 - 34.34 ml/(min*mmHg). The reference range was not used to int erpret this result as normal/abnormal . DL/VA Pre (test code See_Comment [Autom ated message] = 5437) The system [employer] generated this result transmitted ref erence range: 2.77 - 5 .17 ml/(min*mmHg*L) . The reference range was not used to int erpret this result as normal/abnormal . VA SB Pre (test code 4.3 L 5.46-8.19 = 5444) DLCOc Pre (test code See_Comment [Autom ated message] = 5430) The system [employer] generated this result transmitted ref erence range: 18.41 - 34.34 ml/(min*mmHg). The reference range was not used to int erpret this result as normal/abnormal . KCOc SB Pre (test See_Comment [Automate d message] code = 5535) The system [employer] generated this result transmitted ref erence range: 2.77 - 5 .17 ml/(min*mmHg*L) . The reference range was not used to int erpret this result as normal/abnormal . Hb Pre (test code = g(Hb)/dL 5540) R0.5IN Pre (test See_Comment [Automated message] code = 5514) The system [employer] generated this result transmitted ref erence range: [...] See_Comment [Autom ated message] 5507) The system [employer] generated this result transmitted ref erence range: 3.06 - 3 .06 cmH2O*s/L. The reference range was not used to int erpret this result as normal/abnormal . sGaw Predicted (test See_Comment [Autom ated message] code = 5528) The system [employer] generated this result transmitted ref erence range: [...] 50.9 % Predicted (test code = 5587) [facility] antigen [id number] 00:23:28 Test Item Value Reference Range Interpretation Comments SAB serum ID (test code [id number] = 5866) SAB serum collection D&T 05/12/2020 04:11 PM (test code = 5867) SAB class I antibody Negative assignment (test code = 5870) SAB cPRA class I (test code = 5868) SAB class II antibody Negative assignment (test code = 5871) SAB cPRA class II (test code = 5869) Case number (test code = [id number]) Single antigen beads See link below for (test code = 4604) PDF [facility] Report [facility] 2 [id number] 18:32:44Examination: XR CHEST 2 VW Clinical History: Liver Transplant Evaluation Comparison: 03/31/2020 Technique: Frontal and lateral views of the chest Impression: Subtle basilar peripheral reticulations raising possibility of mild interstitial edema or trace fibrosis. No acute airspace disease or pleural effusion. Normal heart size and pulmonary vascularity. 1D2RAD_PS04Hm Interface, Radiology Results 05/15/2020 1:35 PM CDT Examination: XR CHEST 2 VWClinical History: Liver Transplant EvaluationComparison: 03/31/2020Technique: Frontal and lateral views of the chestImpression:Subtle basilar peripheral reticulations raising possibility of mild interstitial edema or trace fibrosis.No acute airspace disease or pleural effusion.Normal heart size and pulmonary vascularity.1D2RAD_PS04[facility] Cont[facility], Pelvis W [id number] 17:57:35 EXAMINATION: CT ABDOMEN WWO CONTRAST PELVIS [...] There is a 1.3 cm cystic lesion atthe junction of the body and tail of the pancreas. There is question of a second cystic lesion in the head measuring 9 mm. There is no pancreatic ductal dilatation. Pancreas is atrophic in the region of the neck and proximal body. ADRENALS: No adrenal nodules. KIDNEYS: No hydronephrosis, stones or solid masses. GI TRACT: The appendix [...] be reactive. Previous ascites has markedly improved. Thereis trace pelvic ascites. No free air. VASCULATURE: There is a very large mesenteric collateral in the right lower quadrant between the SMV and IVC. there is a small re-canalized umbilical vein. There are some additional smaller collaterals in the left upper quadrant with a spontaneous left splenorenalshunt. There are some varices in the region of the cardia of the stomach. Mild atherosclerosis of the abdominal aorta which is nonaneurysmal. Retroaortic left renal vein. PELVIC ORGANS/BLADDER: Mild nonspecific bladder wall thickening. BONES AND SOFT TISSUES: Mild anasarca. Degenerative changes in thespine. There is a stable mild compression deformity of the superior endplate of L2. IMPRESSION: 1.Hepatic cirrhosis without suspicious hepatic lesion. 2.Portal hypertension manifested by splenomegaly, trace pelvic ascites and abdominal collaterals as described above. This includes a large mesenteric collateral on the right and some gastric varices. The portal veins are patent, but diffusely small. 3.There is no evidence of portal [...] Radiology Results Incoming - 05/13/2020 1:00 PM CDTFormatting of this notemight be different from the original.EXAMINATION: CT ABDOMEN WWO CONTRAST PELVIS W CONTRASTCLINICAL [...] calcifications.HEPATOBILIARY: A previously discussed punctate focus of airin the hepatic dome peripherally is no longer present. There is no evidence of portal venous air on today's examination.The liver is cirrhotic. There is no focal hepatic lesion identified. There is conventional hepatic arterial anatomy. The portal veins are patent, they are diffusely small. The hepatic veins are suboptimally visualized on this examination.There are some stones within the gallbladder.There is no biliary ductal dilatation.SPLEEN: Enlarged measuring 14.5 cm in length.PANCREAS: There is a 1.3 cm cystic lesion at the junction of the body and tail of the pancreas. There is question of asecond cystic lesion in the head measuring 9 [...] no retroperitoneal adenopathy. There is a slightly prominentstable right external iliac node measuring 1 cm, [...] gastric varices. The portal veins are patent, but diffusely small.3.There is no evidence of portal venous air on today's examination.4.Wall thickening within the right colon and very terminal ileum is nonspecific. This may represent portal colopathy/enteropathy. Other colitides are not excluded. Follow-up direct visualization can be performed if not doneso recently to exclude any other pathology.5.1.3 cm cystic lesion within the body/tail of the pancreas. Questionable second cystic lesion within the pancreatic head. 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 1-2 year follow-up MRI with MRCP versus CT scan is recommended for surveillance.6.Additional findings as above.1D2RAD_PS08[facility] [id number] 21:13:41 Test Item Value Reference Range Interpretation Comments HLA transplant evaluation See link below for (test code = 68321-9) PDF Lab Report Case number (test code = [id number]) [facility] carotid [id number] 20:42:00 Vascular Ultrasound Laboratory Carotid Artery Duplex Report [address] [place] [address] For quality control projectionist purposes, the categorization of the degree of the stenosis of this exam is based on criteria described in the IAC carotid stenosis grading white paper( www.intersocietal.org/Vascular) and Toño, E.Lela., Olayinka CMaria A., et al. Carotid artery stenosis: ortiz-scale and Doppler US diagnosis--Society of Radiologists in Ultrasound Consensus Conference. Radiology. 2003 Nov; 229(2):340-6. Pat.Name: SRIKANTH TOMAS.ID: [id number] .Date: 05/12/2020 Refer.MD: SAMM WEBB MDExam Time: 2:21:00 PM Study Type:Carotid Height: 70in Weight: 224lb BSA: 2.19 m2 Age: [birth year],70Y Sex: MALE Sonogrphr: Dumont Vi, RVT Pat. Stat.:Inpatient Room: [address] Tape Vol: [facility] - 4: [address] Echo Event ID:[id number] Order ID: [id number] Reason for Study:Pre-operative forl liver transplant. History ofcirrhosis of liver.Procedures: Colorflow, Grayscale/2D, Pulsed wave DopplerRace: D -- SUMMARY: PH YSICAL ASSESSMENT Blood Pulses Carotid Pressure Carotid Temporal [...] The external carotid artery isclear. Colorflow and Dopp ler signals are present. There is antegradeflow seen in the vertebral artery. Elevated velocity is seen at thesubclavian artery. PRELIMINARY FINDINGS1. <50% stenosis of bulb and internal carotid artery, bilaterally.2. <50% stenosis of right external carotid artery.3. Antegrade flow seen in the ve rtebral artery, bilaterally. 4. Elevated velocity is seen at the left subclavian artery. PHYSICIAN INTERPRETATION Bilateral carotid duplex examination demonstrated atheroscleroticplaques in the bulbs. Less than 50% stenosis in the bulb and internal carotid artery,bilaterally.Both vertebral arteries are antegrade.>50% left subclavian artery stenosis. FINDINGS:----- Carotid Findings: Right Left Verteb.Flw Antegrade Antegrade Subclavian Triphasic Triphasic MEASUREMENTS: ------ DOPPLERRight CCA Dist CCA Dist PSV 90.1 cm/s CCA Dist EDV 26.7 cm/sRight CCA Mid CCA Mid OOC450 cm/s CCA Mid EDV 22 cm/sRight CCA [...] 114 cm/s CCA Mid EDV 25.2 cm/sLeft CCAProx CCA Prox PSV 104 cm/s CCA Prox [...] Vascular Ultrasound Laboratory Carotid Artery Duplex Report [address] [address], [place] [address] For quality control projectionist purposes, the categorization of the degree of the stenosis of this exam is based on criteria described in the IAC carotidstenosis grading white paper( www.intersocietal.org/Vascular) and Yaima Lundberg., Wu Bhagat., et al. Carotid artery stenosis: ortiz-scale and Doppler US diagnosis--Society of Radiologists in Ultrasound Consensus Conference. Radiology. 2003 Dec; 229(2):340-6. Pat.Name: SRIKANTH TOMAS [facility].ID: [id number] .Date: 05/12/2020 Refer.MD: SAMM WEBB MDExestelle Time: 2:21:00 PM Study Type:Carotid Height: 70in Weight: 224lb BSA: 2.19 m2 Age: 12 1950,70Y Sex: MALE Sonogrphr: Tim Camarillo RVT Pat. Stat.:Inpatient Room: [address] Vol: , CPT - 4: [address] Echo Event ID:[id number] Order ID: [id number] Reason for Study:Pre-operative forl liver transplant. History [...] vertebral arteries are antegrade.>50% left subclavian artery stenosis.- FINDINGS: Carotid Findings: Right Left Verteb.Flw Antegrade Antegrade Subclavian Triphasic Triphasic ------MEASUREMENTS: DOPPLERRight CCA Dist CCA Dist PSV 90.1 cm/sCCA Dist EDV 26.7 cm/sRight CCA Mid CCA [...] Prox EDV 31.8 cm/sRight Vertebral Vertebral PSV 58.9cm/s Vertebral EDV 12.1 cm/sLeft CCA Dist CCA Dist PSV 129 cm/s CCA Dist EDV 26.8 cm/sLeft CCA Mid CCA Mid PSV 114 cm/s CCA Mid EDV 25.2 cm/sLeft CCA Prox CCA Prox PSV 104 cm/s CCA Prox EDV 20.4 cm/sLeft ECA Prox ECA Prox PSV 145 cm/s ECA Prox EDV 24.8 cm/sLeft ICA Dist ICA Dist PSV 97.8 cm/s ICA DistEDV 30.5 cm/sLeft ICA Mid ICA Mid PSV [...] 1.08 Signed 05/12/2020 03:42 PMEsvin Manuel MD, [facility] [id number] 19:14:10 Addendum by Ruddy Person MD on 05/13/2020 7:57 [...] evaluating vasculature. CT imaging was performed with iterativereconstruction technique and/or automated exposure control to reduce radiation dose. COMPARISON: 04/01/2020 FINDINGS: Lungs and airways: Mild stable subpleural scarring within the lung bases. There is no consolidation, suspicious nodule or central airway abnormality. Pleura: No pleural effusion or pneumothorax. Mediastinum and lymph nodes: A few upper limits of normal mediastinal lymph nodes are likelyreactive and can be reevaluated on follow-up. Calcified [...] upper inner quadrant of the left breast. Degenerativechanges in the spine and shoulders. IMPRESSION: 1.Questionable [...] upper inner quadrant of the left breast isfavored to represent nodular fibroglandular tissue. Recommend follow-up breast ultrasound for further characterization and to exclude other pathology. 5.Hepatic cirrhosis 6.Additional findings as above. 7.Callback was performed to the office of Dr. Canales 05/12/2020 at 12:55 PM and 2:10 PM. My callbacknumber was provided to discuss these findings. [facility]-WPHYDPKHm Interface, Radiology Results Incoming - 05/12/2020 2:17 PM CDT EXAMINATION: CT CHEST WO CONTRASTCLINICAL HISTORY: Liver Transplant EvaluationTECHNIQUE: Axial images of the chest were obtained without intravenous contrast. The lack of intravenous contrast reduces the sensitivity ofthe exam and evaluating vasculature. CT imaging was [...] nodular fibroglandular tissue. Recommend follow- up breast ultrasound for further characterization and to exclude other pathology.5.Hepatic cirrhosis6.Additional findings as above.7.Callback was performed to the office of Dr. Canales 05/12/2020 at 12:55 PM and 2:10 PM. My callback number was provided to discuss these findings.[facility]-WPHYDPKMethodiHarris [facility]21-[facility] 00:32:36EXAMINATION: US HEPATIC HISTORY: 70 years [...] portal veins. IMPRESSION: 1. Nodular, cirrhotic liver.2. Cholelithiasis. 1D2RAD_PS02 Interface, Radiology Results [facility] - 05/08/2020 7:35 PM CDT EXAMINATION: US [...] the portal veins. IMPRESSION: 1. Nodular, cirrhotic liver.2.Cholelithiasis.1D2RAD_PS02 [facility] [id number] 15:25:18EXAMINATION: XR PANOREX CLINICAL HISTORY: missing teeth rule out infection in setting of hepatic encephalopathy COMPARISON: None IMPRESSION: A single Panorex is provided. There are multiple missing teeth and multiple dental restorations. No worrisome periapical lucency is identified. [facility]-[id number] Interface, Radiology Results Incoming - 04/13/2020 9:28 AM CST EXAMINATION: XR PANOREXCLINICAL HISTORY: missing teeth rule out infection in setting of hepatic encephalopathyCOMPARISON: NoneIMPRESSION:A single Panorex is provided.There are multiple missing teeth and multiple dental restorations.No worrisome periapical lucency is identified.[facility]-[id number] [facility] Abdomen 1 Vw [id number] 20:24:12EXAM: XR ABDOMEN 1 VW PORTABLE CLINICAL: Nausea vomiting, rule out ileus or constipation COMPARISON:None. IMPRESSION: 1.Nonspecific bowel gas pattern without radiographic evidence of obstruction.2.Mild degenerative changes in the spine. [facility]-[id number] Interface, Radiology Results Incoming - 04/10/2020 2:27 PM CST EXAM: XR ABDOMEN 1 VW PORTABLECLINICAL: Nausea vomiting, rule out ileus or constipationCOMPARISON: None.IMPRESSION: 1.Nonspecific bowel gas pattern without radiographic evidence of obstruction.2.Mild degenerative changes in the spine.[facility]-[id number] HospitalTransthoracic Echocardiogram Complete, (w Contrast, Strain and 3D if needed)2020-04-03 21:24:00 Echocardiography Report [id number]Name: SRIKANTH TOMAS Pat.ID: [id number] .Date: 04/02/2020 Refer.MD: NURIA DENNIS MD Exam Time: 9:19:00 PM Study Type:Routine Echo Height: 70in Weight: 320lb BSA: 2.55 m2 Age: 12 1950,70Y Sex: MALE BP: 123/56 HR: 81 bpm Sonogrphr: YOMI Montoya /Mikala Krishna, MDPat. Stat.:Inpatient Room: [address] [place] [address] Study Status:Final Echo Event ID:[id number] Order ID: [id number] Reason for Study:fluid overload rule out cardiac etiology, cardiacmurmurProcedures: 2D Echo, Colorflow Doppler, Strain, Portable, IntravenousLumason ContrastRace: D SUMMARY: LV size is normal.Biplane LV EF is 68%. FINDINGS: LV: LV size is normal. Biplane LV ejection fraction= 68% LV EF is normal. Overall wall motion is normal.RV: RV size is normal. RV free wall strain is normal at -27.8%. RV systolic functionis normal.LA: LA volume is moderately enlarged. LA reservior strain is normal at 43.9%.RA: RA size is normal.AO: Aortic root diameter is normal.YOVANY: No pericardial effusion.AV: Mild thickening and calcification of AV leaflets.MV: Mild mitral annular calcification.PV: Pulmonic valve not well seen.TV: No structural TV abnormalities noted.Other: Insufficient TR jet to estimate PA systolic pressure.----- MEASUREMENTS: 2DParasternal Long [place] Ao An 2 cm LVPWd 1 cm Ao Rtd 3.3 cm Index 1.3 cm/m2 LA Ds 4.5 cm IVSd 1 cm RWT 0.4 LVIDd 5.5 cm Index 2.1 cm/m2 LV Mass 211.3 g (122- 174) LVIDs 3.2 cm LVM Index 82.9 g/m2 [...] 27 ml Index 10.6 ml/m2 RA LngAx 5.6cm RA Area 13.5 cm2 (8.3- 19.5)LVOT LVOT Area 3.2 cm2 DOPPLERAV For Flow/LIZETTE AV pkVel 188.7 cm/s (100-170) AV AC/ET 0.2 AV mnVel 153.3 cm/s AV TVI 36.5 cm AV pkPG 14.2 mmHg AVpkAcRt 6393.3 cm/s2 AV MeanG 10.5 mmHg AV DeRt 791.4 cm/s2 AV [...] 105.2 cm/s Signed 04/03/2020 03:24 PMSkalpana Ron M.D.Interface, Radiology Results In - 04/03/2020 3:25 PM CSTFormatting of this notemight be different from the original. Echocardiography Report [id number] [facility], [address] [address], [place] [address] [facility].Name: SRIKANTH TOMAS Pat.ID: [id number] .Date: 04/02/2020 Refer.MD: NURIA DENNIS MD Exam Time: 9:19:00 PM Study Type:Routine Echo Height: 70in Weight: 320lb BSA: 2.55 m2 Age: 12 1950,70Y Sex: MALE BP: 123/56 HR: 81 bpm Sonogrphr: YOMI Montoya /Mikala Keller, MDPat. Stat.:Inpatient Room: [place] [address] Study Status:Final Echo Event ID:[id number] Order ID: [id number] Reason for Study:fluid overload rule out cardiac etiology, cardiacmurmurProcedures: 2D Echo, Colorflow Doppler, Strain, Portable, IntravenousLumason ContrastRace: D SUMMARY:------- LV size is normal.Biplane LV EF is 68%. ----FINDINGS: LV: LV size is normal. Biplane LV [...] estimate PA systolic pressure. MEASUREMENTS: 2DParasternal Long [place] Ao An 2 cm LVPWd 1 cm [...] LngAx 5.9 cm RA Sng Plane RA Vol27 ml Index 10.6 ml/m2 RA LngAx 5.6 [...] 105.2 cm/s Signed 04/03/2020 03:24 Helio Ron M.D.[facility] Abdomen [id number] 07:13:36EXAM: US ABDOMEN COMPLETE CLINICAL DATA: distention COMPARISON: CT abdomen/pelvis 04/01/2020 FINDINGS:LIVER: The liver has a nodular contour with coarsened echotexture, consistent with cirrhosis. No foca l hepatic lesion is identified. MPV: Doppler evaluation of the portal vein demonstrates normal hepatopetal flow. 0.9 cm. GALLBLADDER: The gallbladder contains multiple stones. No gallbladder wall thickening is identified. CBD: 5.4 mm. PANCREAS: The visualized portions of the pancreas are within normallimits. SPLEEN: The spleen is homogeneous and not enlarged measuring 12.0 cm RIGHT KIDNEY: The rightkidney is normal in size and echogenicity. There is no evidence of mass, calculi, or hydronephrosis.The right kidney measures 11.3 X 5.6 X 5.8 cm. LEFT KIDNEY: The left kidney is normal in size and echogenicity. There is no evidence of mass, calculi, or hydronephrosis. The left kidney measures 12.3 X6.7 X 5.0 cm. AORTA: The visualized upper abdominal aorta demonstrates no evidence of ectasia or aneurysm. IVC: The visualized portions of the inferior vena cava are unremarkable. ASCITES: Moderate volume ascites is noted. PLEURAL EFFUSION: There are no pleural effusions. IMPRESSION: Cirrhotic liver morphology with moderate volume ascites. Cholelithiasis without sonographic evidence of cholecystitis.1D2RAD_PS08Hm Interface, Radiology Results Incoming - 04/01/2020 1:16 AM CST EXAM: US ABDOMEN COMPLETECLINICAL DATA: distentionCOMPARISON: CTabdomen/pelvis 04/01/2020FINDINGS: LIVER: The liver has a nodular [...] portions of the inferior vena cava are unremarkable .ASCITES: Moderate volume ascites is noted.PLEURAL EFFUSION: There are no pleural effusions.IMPRESSION: Cirrhotic liver morphology with moderate volume ascites.Cholelithiasis without sonographic evidence of cholecystitis.1D2RAD_PS08 [facility] Abdomen Pelvis Wo [id number] 07:02:13Examination: CT ABDOMEN PELVIS WO CONTRAST Clinical [...] performed without intravenous contrast. The liver is nodularin contour and small in size consistent with cirrhosis. Spleen, pancreas, and adrenal glands are unre markable. Gallbladder shows gallstones but no gallbladder wall thickening. The kidneys are within normal limits without hydronephrosis or urinary calculus. Moderate ascites is seen throughout the abdomen and pelvis. This limits evaluation for bowel wall thickening. The appendix is not visualized. No fat stranding is seen although is limited by the ascites. No free air is seen. Diffuse subcutaneous edema is noted. Right inguinal hernia is noted which contains ascites. The visualized lung bases are clear. The visualized bony structures show no acute abnormality. IMPRESSION:1. Hepatic cirrhosis with as cites and diffuse subcutaneous edema.2. Cholelithiasis without CT evidence for cholecystitis.3. Right inguinal hernia containing ascites. 1D2RAD_PS01 Interface, Radiology Results 04/01/2020 1:05 AM CST Examination: CT ABDOMEN PELVIS WO CONTRASTClinical History: abd distentionComparison: None.Findings:CT scans are performed usingradiation dose reduction techniques. Technical factors are evaluated and adjusted to ensure appropriate moderation of exposure. Automated dose management technology is applied to adjust radiation exposure while achieving a diagnostic quality image. CT imaging was performed with iterative reconstruction techniques and/or automated exposure control to reduce radiation dose.CT scan of the abdomen and pelvis was performed without intravenous contrast.The liver is nodular in contour and small in size consistent with cirrhosis. Spleen, pancreas, and adrenal glands are unremarkable. Gallbladder shows gallstones but no gallbladder wall thickening.The kidneys are within normal limits without hydronephrosisor urinary calculus.Moderate ascites is seen throughout the [...] for cholecystitis.3. Right inguinal hernia containing ascites.1D2RAD_PS01[facility] venous lower [id number] 03:27:00 Vascular Ultrasound Laboratory Lower Extremity Venous Report [id number]Name: SRIKANTH TOMAS Pat.ID: [id number] .Date: 03/31/2020 Refer.MD: PHYSICIAN, EMERGENCY, Exestelle Time: 8:17:00 PM Study Type:LE Venous Age: 12 1950,70Y Sex: MALE Sonogrphr: BREA Santiago, YOMI Pat. Stat.:Inpatient Room: [facility] ED E24 Tape Vol: SHANIA, CPT - 4: 41839 Echo Event ID:[id number] Order ID: [id number] Reason for Study:Leg swelling , DVT suspected.Procedures: [...] Normalcompressibility and augmentation of all veins visualized. FINDINGS:--------- MEASUREMENTS:---- DOPPLERGeneral Anatomy General Anatomy 0.527 s Signed 03/31/2020 09:27 PMEsvin Manuel MD, RPVIIntleydice, Radiology Results In - 03/31/2020 9:28 PM CST Vascular Ultrasound Laboratory Lower Extremity Venous Report [address] [address], [place] [address] Pat.Name: SRIKANTH TOMAS Pat.ID: [id number] .Date: 03/31/2020 Refer.MD: PHYSICIAN, EMERGENCY, Alcides Time: 8:17:00 PM Study Type:LE Venous Age: 12 1950,70Y Sex: MALE Sonogrphr: BREA Santiago, YOMI Pat. Stat.:Inpatient Room: [facility] ED E24 Tape Vol: , CPT - 4: 19160 Echo Event ID:[id number] Order ID: [id number] Reason for Study:Leg swelling , DVT suspected.Procedures: [...] Normalcompressibility and augmentation of all veins visualized. -------FINDINGS: --------MEASUREMENTS: DOPPLERGeneral Anatomy General Anatomy 0.527 s Signed 03/31/2020 09:27 Qamar Manuel MD, [facility]
--- NOTE | 2021-11-20 18:30 | RAD REPORT ---
EXAM DESCRIPTION: RAD - Femur Right - 11/20/2021 6:19 pm CLINICAL HISTORY: PAIN COMPARISON: No comparisons FINDINGS/IMPRESSION: No definite right femur fracture identified. Difficult to entirely exclude a ri ght femoral neck fracture due to osteopenia and positioning. A significantly displaced fracture is no t identified. A nondisplaced or minimally displaced fracture would be difficult to exclude on these i mages. The remainder of the femur is without fracture.
--- NOTE | 2021-11-20 19:20 | RAD REPORT ---
EXAM DESCRIPTION: CT - Hip Right Wo Con - 11/20/2021 7:04 pm CLINICAL HISTORY: R/o hip fracture COMPARISON: <Comparisons> FINDINGS: No right hip fracture or dislocation. Mild acetabular degenerative changes and osteophytes along the femoral head. The right bony hemipelvis is intact. Right iliac fossa renal transplant. Per ipheral vascular calcifications. IMPRESSION: No right hip fracture or dislocation.
--- NOTE | 2021-11-20 19:44 | ER ---
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 States he has been unable to stand on the right leg since falling and is experiencing right upper leg pain. Coronavirus screen:. Ebola Screen: Patient negative for fever greater than or equal to 101.5 degrees Fahrenheit, and additional compatible Ebola Virus Disease symptoms Patient denies exposure to infectious person. Patient denies travel to an Ebola-affected area in the 21 days before illness onset. No symptoms or risks identified at this time. Initial Sepsis Screen: Does the patient meet any 2 criteria? No. Patient's initial sepsis screen is negative. Does the patient have a suspected source of infection? No. Patient's initial sepsis screen is negative. Risk Assessment: Do you want to hurt yourself or someone else? Patient reports no desire to harm self or others. Onset of symptoms was November 20, 2021 at 15:30. 17:22 Method Of Arrival: Wheelchair kb3 17:22 Acuity: NGOC 3 kb3 Triage Assessment: 17:26 General: Appears in no apparent distress. comfortable, Behavior is calm, cooperative. kb3 Pain: Complains of pain in medial aspect of right thigh Pain does not radiate. Pain currently is 1 out of 10 on a pain scale. Historical: - Allergies: 17:26 Codeine; kb3 - PMHx: 17:26 Cirrhosis; Hepatitis; kb3 - PSHx: 17:26 Left knee sx; Tonsillectomy; Liver transplant x2; Kidney transplant; kb3 - Immunization history:: Adult Immunizations up to date, Client reports receiving the 2nd dose of the Covid vaccine, Last tetanus immunization: up to date. - Social history:: Smoking status: Patient denies any tobacco usage or history of. Screenin:52 Abuse screen: Denies threats or abuse. Denies injuries from another. Nutritional as6 screening: No deficits noted. Tuberculosis screening: No symptoms or risk factors identified. Fall Risk Fall in past 12 months (25 points). Total [place] Fall Scale indicates Low Risk Score (25-44 pts). Side Rails Up X 2. Assessment: 17:48 General: Appears in no apparent distress. Behavior is calm, cooperative, appropriate mb9 for age. Pain: Complains of pain in Pt states he is having pain in his right upper thigh that is worse when he bends his leg. is at bedside and states she gave him 1000mg of Tylenol 2 hours ago. Pain does not radiate. Quality of pain is described as throbbing, Pain began 2 hours ago. Neuro: Level of Consciousness is awake, alert, obeys commands, Oriented to person, place, time, situation, Appropriate for age Stroke Program Coordinator are equal bilaterally Moves all extremities. Pupils are PERRLA. Cardiovascular: Heart tones S1 S2 present Rhythm is regular. Respiratory: Breath sounds are clear bilaterally. GI: No signs and/or symptoms were reported involving the gastrointestinal system. : No signs and/or symptoms were reported regarding the genitourinary system. EENT: No signs and/or symptoms were reported regarding the EENT system. Derm: Skin is pink, warm \T\ dry. Musculoskeletal: Range of motion: intact in all extremities. 18:27 Neuro: Level of Consciousness is awake, alert, obeys commands, Oriented to person, mb9 place, time, situation, Appropriate for age Stroke Program Coordinator are equal bilaterally Moves all extremities. Cardiovascular: Heart tones S1 S2 present Rhythm is regular. Derm: Skin is pink, warm \T\ dry. Musculoskeletal: Range of motion: intact in all extremities, Reports pain in medial aspect of right thigh. 18:55 Pain: Complains of pain in right leg and medial aspect of right thigh Pain does not mb9 radiate. Quality of pain is described as throbbing. Neuro: Level of Consciousness is awake, alert, obeys commands, Oriented to person, place, time, situation, Appropriate for age Stroke Program Coordinator are equal bilaterally Moves all extremities. Pupils are PERRLA. Cardiovascular: Heart tones S1 S2 present Rhythm is regular. Respiratory: Breath sounds are clear bilaterally. Derm: Skin is pink, warm \T\ dry. Musculoskeletal: Range of motion: intact in all extremities. 19:30 General: Appears uncomfortable, Behavior is calm, cooperative. Neuro: Level of aa9 Consciousness is awake, alert, obeys commands. Cardiovascular: Patient's skin is warm and dry. Respiratory: Airway is patent Respiratory effort is even, unlabored. Vital Signs: 17:22 BP 123 / 88; Pulse 80; Resp 20; Temp 98.3; Pulse Ox 100% ; Weight 74.84 kg; Height 5 kb3 ft. 10 in. (177.80 cm); Pain 1/10; 17:52 BP 125 / 86; Pulse 81; Resp 20; Pulse Ox 100% on R/A; Pain 0/10; mb9 18:28 BP 109 / 80; Pulse 80; Resp 18; Pulse Ox 100% on R/A; Pain 0/10; mb9 19:53 Pulse 85; Resp 18 S; Pulse Ox 100% on R/A; as6 17:22 Body Mass Index 23.67 (74.84 kg, 177.80 cm) kb3 ED Course: 17:12 Patient arrived in ED. dt4 17:26 Triage completed. kb3 17:26 Arm band placed on right wrist. kb3 17:35 Nichole Cox RN is Primary Nurse. mb9 17:39 Reyna Torres FNP-C is [facility]. kb 17:39 Jaspal Garcia MD is Attending Physician. kb 19:00 Primary Nurse role handed off by Nichole Cox RN as6 19:00 Bryce Wadsworth RN is Primary Nurse. as6 19:02 Report given to JENNIFER Wu. mb9 19:52 No provider procedures requiring assistance completed. Patient did not have IV access as6 during this emergency room visit. 19:53 Bed in low position. Call light in reach. Side rails up X2. as6 Administered Medications: No medications were administered Medication: 19:53 VIS not applicable for this client. as6 Outcome: 19:43 Discharge ordered by . kb 19:52 Discharged to home via wheelchair, with family. as6 19:52 Condition: stable 19:52 Discharge instructions given to patient, family, Instructed on discharge instructions, follow up and referral plans. Demonstrated understanding of instructions, follow-up care. 19:53 Patient left the ED. as6 Signatures: Reyna Torres FNP-C AGED OR DISABLED CARER-Bryce Metz RN RN as6 Tiffanie Vásquez, RN RN aa9 Starr Carter, RN RN kb3 Sissy Lal dt4 Nichole Cox, RN RN mb9
--- NOTE | 2021-11-20 19:44 | EDPHYS ---
Physician Documentation [facility] Name: Dorian Cruz Age: 71 yrs Sex: Male : 1950 Arrival Date: 11/20/2021 Time: 17:12 Bed 6 Private MD: ED Physician Jaspal Garcia HPI: 11/21 00:42 This 71 yrs old Male presents to ER via Wheelchair with complaints of Fall Injury. kb 00:42 Details of fall: The patient fell from an upright position, while walking. Onset: The kb symptoms/episode began/occurred just prior to arrival. Associated injuries: The patient sustained right quadriceps. Severity of symptoms: At their worst the symptoms were moderate, in the emergency department the symptoms are unchanged. The patient has not experienced similar symptoms in the past. The patient has not recently seen a physician. Pt states he tripped over a jacket falling to hands and knees. c/o pain to right upper leg only. No tenderness to knees, hands, hips. Historical: - Allergies: 11/20 17:26 Codeine; kb3 - PMHx: 17:26 Cirrhosis; Hepatitis; kb3 - PSHx: 17:26 Left knee sx; Tonsillectomy; Liver transplant x2; Kidney transplant; kb3 - Immunization history:: Adult Immunizations up to date, Client reports receiving the 2nd dose of the Covid vaccine, Last tetanus immunization: up to date. - Social history:: Smoking status: Patient denies any tobacco usage or history of. ROS: 11/21 00:41 Constitutional: Negative for fever, chills, and weight loss. kb MS/extremity: Positive for pain, of the right quadriceps. All other systems are negative. Exam: 00:41 Constitutional: This is a well developed, well nourished patient who is awake, alert, kb and in no acute distress. Head/Face: Normocephalic, atraumatic. ENT: Moist Mucous membranes Cardiovascular: Regular rate and rhythm with a normal S1 and S2. No gallops, murmurs, or rubs. No pulse deficits. Respiratory: Respirations even and unlabored. No increased work of breathing. Talking in full sentences Abdomen/GI: Soft, non-tender. No distention Skin: Warm, dry with normal turgor. Normal color. Neuro: Awake and alert, GCS 15, oriented to person, place, time, and situation. Moves all extremities. Normal gait. Psych: Awake, alert, with orientation to person, place and time. Behavior, mood, and affect are within normal limits. 00:41 Musculoskeletal/extremity: Extremities: grossly normal except: noted in the right quadriceps: decreased ROM, pain, tenderness, ROM: limited active range of motion due to pain, Circulation is intact in all extremities. Sensation intact. Weight bearing: can bear weight with assistance only. Vital Signs: 11/20 17:22 BP 123 / 88; Pulse 80; Resp 20; Temp 98.3; Pulse Ox 100% ; Weight 74.84 kg; Height 5 kb3 ft. 10 in. (177.80 cm); Pain 1/10; 17:52 BP 125 / 86; Pulse 81; Resp 20; Pulse Ox 100% on R/A; Pain 0/10; mb9 18:28 BP 109 / 80; Pulse 80; Resp 18; Pulse Ox 100% on R/A; Pain 0/10; mb9 19:53 Pulse 85; Resp 18 S; Pulse Ox 100% on R/A; as6 17:22 Body Mass Index 23.67 (74.84 kg, 177.80 cm) kb3 MDM: 17:39 Patient medically screened. kb 11/21 00:41 Data reviewed: vital signs, nurses notes. Data interpreted: Pulse oximetry: on room air kb is 100 %. Interpretation: normal. Counseling: I had a detailed discussion with the patient and/or guardian regarding: the historical points, exam findings, and any diagnostic results supporting the discharge/admit diagnosis, radiology results, the need for outpatient follow up, a orthopedic surgeon, to return to the emergency department if symptoms worsen or persist or if there are any questions or concerns that arise at home. 11/20 17:44 Order name: Femur Right XRAY kb 11/20 18:30 Order name: RAD; Complete Time: 18:48 EDMS 11/20 19:21 Order name: CT; Complete Time: 19:25 EDMS Administered Medications: No medications were administered Disposition Summary: 11/20/21 19:43 Discharge Ordered Location: Home kb Condition: Stable kb Diagnosis - Pain in right leg kb - Fall on same level from slipping, tripping and stumbling without subsequent kb striking against object Followup: kb - With: Emergency Department - When: As needed - Reason: Worsening of condition Followup: kb - With: Private Physician - When: 2 - 3 days - Reason: Recheck today's complaints, Continuance of care, Re-evaluation by your physician Discharge Instructions: - Discharge Summary Sheet kb - Musculoskeletal Pain kb Forms: - Medication Reconciliation Form kb - Thank You Letter kb - Antibiotic Education kb - Prescription Opioid Use kb Signatures: Dispatcher [employer] EDReyna Castellano, Starr Simon, RN RN kb3
[2021-11-21 08:10] VITALS: TEMP 98.3; O2SAT 100
[2021-11-21 08:12] VITALS: BP 109/80
== END 2021-11-20 19:53 | disposition home or self-care (01) ==
LOC: ER 17:07
DX: M79.651 Pain in right thigh (principal); W01.0XXA Fall on same level from slipping, tripping and stumbling without subsequent striking against object, initial encounter; Z94.0 Kidney transplant status; Z94.4 Liver transplant status; Z88.5 Allergy status to narcotic agent
CPT/HCPCS: 73700; 99281

== ENCOUNTER 2021-12-09 07:57 | Emergency (ER) | payer OTHER ==
--- OUTSIDE RECORDS SUMMARY | 2021-12-09 08:04 | XMS REPORT | Continuity of Care Document ---
:1950 Author Organization [facility] t Address [address] [place] [address] Care Team Providers Name Role Phone Jan Kenney Primary Care Physician YURY FREEMAN Attending Clinician Unavailable AUBREY CARMICHAEL Attending Clinician Unavailable EDELMIRA VILLANUEVA Attending Clinician Unavailable MARTI ARMSTRONG Attending Clinician Unavailable NAMAN_Federico_Jimbo_JOSE Attending Clinician Unavailable [...] Unavailable Only, Adc Test Attending Clinician Unavailable Shellie Pisano MD Attending Clinician SHELLIE PISANO Attending Clinician Unavailable NURIA DENNIS Attending Clinician Unavailable MD NURIA DENNIS Attending Clinician Unavailable Doctor Unassigned, [place] Attending Clinician Unavailable YRIS GARCIA Attending Clinician Unavailable MD DONALD GANN Attending Clinician Unavailable SCOTTIE HOPSON Attending Clinician Unavailable SURESH MARTINES Attending Clinician Unavailable [place] MA Attending Clinician Unavailable DONALD GANN Attending Clinician Unavailable Hu WARD, Ruddy Will Attending Clinician Annalisa WARD, Rodriguez Ya Attending Clinician Mina RODRIGUEZ, Romaine Zaldivar Attending Clinician Unavailable KRISHNA WEBB Attending Clinician Unavailable 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, 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 Attending Clinician Xiang WARD, Maurisio Attending Clinician Alvino RODRIGUEZ, Luz Attending Clinician Unavailable Bailee WARD, [facility] Attending Clinician STEPHANIE DAVIS Attending Clinician Unavailable Provider, [facility] Attending Clinician Unavailable Stephanie Lou Attending Clinician Jnoo Eng Attending Clinician Lab, Adc Fam Pob I Attending Clinician Unavailable JONO PATTEN Attending Clinician Unavailable YURY FREEMAN Admitting Clinician Unavailable MARTI ARMSTRONG Admitting Clinician Unavailable NAMAN_Federico_Carlito Admitting Clinician Unavailable KASH HENDRICKS Admitting Clinician [...] Expiration Source Number Date MEDICARE A B [id number] 2017 00:00:00 GENERIC MEDICARE [id number] 2018 SUPPLEMENT 00:00:00 GEENAISABELLA YANG- [id number] [facility] PART [id number] 2017 Md jez Nicholas AND 00:00:00 [facility] [id number] 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 [id number] 2018 [place] [facility] MEDICARE 00:00:00 Hospital [id number] 2017-PresentComme rcial Problems Condition Condition Condition Status Onset Resolution Last Treating Co mments Source Name Details Category Date Date Treatment Clinician Date Anemia Anemia Disease Active [facility]osp[facility] 00 l Hematemesi Hematemesi Disease [...] Hepatic Disease Active [facility] encephal[facility] encephalop 5 Trina kes athy athy 00:00: Medical 00 [...] cirrhosis 04-01 st 00:00: Hospita 00 l No known No known Disease Unive rs active active ity of problems problems [facility] Sciatica, Sciatica, Diagnosis Active C ommon right side right side Sp anay - [facility] Strain of Strain of Problem Active Com mon left left [facility] patellar patellar - [facility] tendon, tendon, St initial initial [facility] encounter encounter [facility] Pain, Pain, Diagnosis Active Common joint, joint, [facility] knee, left knee, left - [facility] Strain of Strain of Diagnosis Active C ommon left left [facility] patellar patellar - [facility] tendon, tendon, St subsequent subsequent [facility] encounter encounter [facility] Allergies, Adverse Reactions, Alerts Allergy Allergy Status Severity Reaction(s) Onset Inactive Treating Comm ents Source Name Type Date Date Clinician CODEINE Allergy [facility] Codeine Drug Active Other (See Patient [facility] St Allergy Comments) 06-26 [facility] Medical 00 when he Center last took medicatio n Codeine Propensi Active Other (See [place] - Me thodi ty to Comments) 04-[address] adverse 00:00: in other Hospita reaction 00 world l s to drug codeine Adverse Active Info Not Common Reaction Available Spiri t [facility] Social History Social Habit Start Date Stop Date Quantity Comments Source History SDOH [facility] Alcohol Std Drinks History SDOH [facility] Alcohol Binge Exposure to Not sure [facility] SARS-CoV-2 (event) Alcohol intake 2020-09-19 2020-09-19 [facility] 00:[facility]00 00:00:00 non-drinker (finding) History SDOH 2020-04-02 2020-04-02 1 [facility] Alcohol Frequency 00:00:00 00:00:00 Tobacco use and 2019-12-25 2019-12-25 Never used [facility] exposure 00:00:00 00:00:00 [facility] Sex Assigned At [birth year] [facility] 00:00:00 00:00:00 Medical Center Smoking Status Start Date Stop Date Source Never smoker [facility] Medications Ordered Filled Start Stop [...] times a l day. midodrine Yes 10mg Q.[id number] Take 10 mg [facility] (PROAMATINE 7-30 [id number] by mouth 3 st ) 10 MG [...] MG EC 54 :00 l tablet pantoprazol 0 Yes 40mg Q.5D Take 1 Meth asif e 7-12 tablet (40 st (PROTONIX) 00:00: mg total) Ho spita 40 MG EC 00 by mouth 2 l tablet (two) times a day. ergocalcife 2020- No [id number] Q7D Take 1 M ethodi rol 08-22 [...] 100mg QD Take 1 Me thodi one 08-12-[address] (ALDACTONE) 00:00: 00:00 (100 mg Ho spita 100 MG 00 :00 total) by l tablet mouth daily. magnesium 2020- No 400mg QD Take 400 Me thodi oxide 08-11- mg by st (MAG-OX) 21:50: 00:00 mouth Hospita 400 mg 28 :00 daily. l (241.3 mg magnesium) tablet torsemide 2020- No 60mg Q.5D Take 3 Metho di (DEMADEX) 08-[address] 20 MG 00:00: 00:00 (60 [...] day for 30 days. midodrine Yes 10mg Q.[id number] Take [address] (PROAMATINE 06-27 [id number] by mouth 3 [facility] ) 10 MG 15:53: 3D (three) Medical tablet 19 times Center daily. pantoprazol Yes 40mg QD Take 40 mg [...] 15:53: daily. Medical tablet 19 Center cyanocobala 0 Yes 1000ug QD Take 1,[address] min, 5-07 mcg by [facility] vitamin 15:53: mouth Medical B-12, 1000 19 daily. Center MCG tablet lactulose Yes 20g Q.25D Take [address] (CHRONULAC) 5-07 by mouth 4 Trina kes 20 gram/30 15:53: (four) Medic al mL solution 19 times Center daily. sucralfate 0 Yes 1g Q.5D Take [address] (CARAFATE) 5-07 by mouth 2 Beverley es 1 gram 15:53: (two) Medical tablet 19 times Center daily. coenzyme 0 Yes 100mg QD Take [address] Q10 100 mg 5-07 mg by [facility] capsule 15:53: mouth Medical 19 daily. Center saw 0 Yes 160mg Q.5D Take [address] palmetto 5-07 mg by [facility] 160 MG 15:53: mouth 2 Medical capsule 19 (two) Center times daily. spironolact 2020- No 100mg Q.5D Take 1 Me thodi one 3-26 04-[address] (ALDACTONE) 00:00: 04:59 (100 mg Ho spita 100 MG 00 :00 total) by l tablet mouth 2 (two) times a day for 30 days. lactulose 0 2020- No 20g Q.[id number] Take 20 g [facility] 10 gram/15 04-14- [id number] by mouth 3 st mL (15 mL) 22:38: 00:00 3D (three) Hos kayleigh solution 55 :00 times a l day. 4am, 12pm, 8pm spironolact 2020- No 50mg Q.5D Take 50 mg [facility] one -14 04-[address] (ALDACTONE) 22:38: 00:00 [...] times a day. midodrine 2020- No 5mg Q.[id number] Take 1 [facility] (PROAMATINE 04-14 [id number] tablet (5 st ) 5 MG 00:00: [...] mouth daily with dinner. albuterol 2019-02 Yes [id number] 2{puff} Inhale 2 Univers 90 1-03 Puffs ity of mcg/actuati 00:00: every 6 Julio as on inhaler 00 (six) Medical hours as Branch needed for Wheezing, Shortness of Breath or Chest tightness. Meloxicam Meloxicam 2019- No Renato 1 tablet Common 03-29- Tobar Spirit 00:00: 00:00 - [facility] 00 :00 [facility] spironolact spironolact Yes Renato not Common one one Amadou defined [facility] Furosemide Furosemide Yes Renato not C ommon Amadou defined [facility] Immunizations Ordered Immunization Filled Immunization Date Status Commen ts Source Name Name FLUZONE HIGH-DOSE PF 2020-04-14 Completed [facility] 00:00:00 Hospital Vital Signs Vital Name Observation Time Observation Value Comments Source WEIGHT 2020-06-27 06:00:00 106.595 kg HEIGHT 2020-06-26 23:19:00 177.8 cm WEIGHT 2020-06-27 06:00:00 106.595 kg HEIGHT 2020-06-26 23:19:00 177.8 cm Body height 2020-09-19 15:15:00 177.8 cm [facility] Body weight 2020-09-19 15:15:00 110.496 kg [facility] BMI 2020-09-19 15:15:00 34.95 kg/m2 [facility] Systolic blood 2020-09-01 13:08:47 113 mm[Hg] [facility] pressure Diastolic blood 2020-09-01 13:08:47 58 mm[Hg] [facility] pressure Heart rate 2020-09-01 13:08:47 62 /min [facility] Body temperature 2020-09-01 13:08:47 36.39 Radha [facility] Respiratory rate 2020-09-01 13:08:47 20 /min [facility] Oxygen saturation in 2020-09-01 13:08:47 99 /min [facility] Arterial blood by Pulse oximetry Procedures Procedure Date / Time Performing Source Performed Clinician HC COMPLETE BLD COUNT W/AUTO DIFF 2020-09-01 Dennis Garcia 09:37:00 [facility] BASIC METABOLIC PANEL 2020-09-01 Dennis Garcia 09:37:00 [facility] HEPATIC FUNCTION PANEL 2020-09-01 Dennis Garcia 09:37:00 [facility] MAGNESIUM LEVEL 2020-09-01 Dennis Garcia 09:37:00 [facility] PHOSPHORUS LEVEL 2020-09-01 Dennis Garcia 09:37:00 [facility] PROTHROMBIN TIME WITH INR 2020-09-01 Ronaldo Burrell Method ist 09:37:00 [facility] ESTIMATED GFR 2020-09-01 Dennis Garcia 09:37:00 [facility] SMEAR REVIEW 2020-09-01 Dennis Garcia 09:37:00 [facility] HEMOGLOBIN & HEMATOCRIT 2020-09-01 Delmi Garcia t 03:19:00 [facility] HC COMPLETE BLD COUNT W/AUTO DIFF 2020-08-31 Dennis Garcia 10:29:00 [facility] BASIC METABOLIC PANEL 2020-08-31 Dennis Garcia 10:29:00 [facility] HEPATIC FUNCTION PANEL 2020-08-31 Dennis Garcia 10:29:00 [facility] MAGNESIUM LEVEL 2020-08-31 Dennis Garcia 10:29:00 [facility] PHOSPHORUS LEVEL 2020-08-31 Dennis Garcia 10:29:00 [facility] PROTHROMBIN TIME WITH INR 2020-08-31 Temi Garcia ist 10:29:00 [facility] ESTIMATED GFR 2020-08-31 Dennis Garcia 10:29:00 [facility] SMEAR REVIEW 2020-08-31 Dennis Garcia 10:29:00 [facility] TRANSFUSE RED BLOOD CELLS 2020-08-30 Ronaldo Burrell Method ist 23:54:39 [facility] ESOPHAGOGASTRODUODENOSCOPY (EGD) 2020-08-30 Ruddy Lui 18:18:00 [facility] TRANSFUSE RED BLOOD CELLS 2020-08-30 Ronaldo Burrell Method ist 18:09:03 [facility] TTE COMPLETE W AGITATED SALINE W 2020-08-30 Segundo Canales CONT W DOP 15:00:00 Hospital HEPATIC FUNCTION PANEL 2020-08-30 Dennis Garcia 10:06:00 [facility] MAGNESIUM LEVEL 2020-08-30 Dennis Garcia 10:06:00 [facility] PHOSPHORUS LEVEL 2020-08-30 Dennis Garcia 10:06:00 [facility] PROTHROMBIN TIME WITH INR 2020-08-30 Ronaldo Burrell Method ist 10:06:00 [facility] ESTIMATED GFR 2020-08-30 Dennis Garcia 10:06:00 [facility] SMEAR REVIEW 2020-08-30 Temi Garciaist 10:06:00 [facility] HC COMPLETE BLD COUNT W/AUTO DIFF 2020-08-30 Dennis Garcia 10:06:00 [facility] BASIC METABOLIC PANEL 2020-08-30 Temi Garciaist 10:06:00 [facility] US ABDOMINAL DOPPLER 2020-08-29 Ilene Berkowitz [facility] 22:45:05 Hospital HEMOGLOBIN & HEMATOCRIT 2020-08-29 Ilene Berkowitz Method ist 19:03:00 Hospital POTASSIUM LEVEL 2020-08-29 Aubrey Carmichael [facility] 17:40:00 [facility] HEMOGLOBIN & HEMATOCRIT 2020-08-29 Ilene Berkowitz Method ist 17:40:00 Hospital POTASSIUM LEVEL 2020-08-29 Temi Garciaist 13:15:00 [facility] HC COMPLETE BLD COUNT W/AUTO DIFF 2020-08-29 Dennis Garcia 10:09:00 [facility] BASIC METABOLIC PANEL 2020-08-29 Dennis Garcia 10:09:00 [facility] HEPATIC FUNCTION PANEL 2020-08-29 Temi Garciaist 10:09:00 [facility] MAGNESIUM LEVEL 2020-08-29 Temi Garciaist 10:09:00 [facility] PHOSPHORUS LEVEL 2020-08-29 Ronaldo Burrell [facility] 10:09:00 [facility] PROTHROMBIN TIME WITH INR 2020-08-29 Ronaldo Burrell Method ist 10:09:00 [facility] ESTIMATED GFR 2020-08-29 Dennis Garcia 10:09:00 [facility] URINE CULTURE 2020-08-29 Temi Garciaist 07:15:00 [facility] URINALYSIS SCREEN AND MICROSCOPY, 2020-08-29 Dennis Garcia WITH REFLEX TO CULTURE 07:15:00 [facility] BLOOD CULTURE, AEROBIC & ANAEROBIC 2020-08-29 Dennis Garcia 05:56:00 [facility] BLOOD CULTURE, AEROBIC & ANAEROBIC 2020-08-29 Dennis Garcia 05:38:00 [facility] COVID-19 QUALITATIVE RT-PCR 2020-08-29 Rhoda Calero odist 04:33:00 [facility] HEMOGLOBIN & HEMATOCRIT 2020-08-29 Delmi Garcia t 04:00:00 [facility] ECG ED PRELIMINARY INTERPRETATION 2020-08-28 Rhoda Calero 22:17:31 [facility] [place] CRITICAL CARE, E/M 30-74 2020-08-28 Rhoda Calero odist MINUTES 22:17:31 [facility] PREPARE RBC 2020-08-28 Dennis Garcia 21:57:00 [facility] HC COMPLETE BLD COUNT W/AUTO DIFF 2020-08-28 Rhoda Calero 21:57:00 [facility] PROTHROMBIN TIME WITH INR 2020-08-28 Rhoda Calero ist 21:57:00 [facility] TYPE AND SCREEN 2020-08-28 Rhoda Calero 21:57:00 [facility] COMPREHENSIVE METABOLIC PANEL 2020-08-28 Rhoda Calero thodist 21:57:00 [facility] LIPASE LEVEL 2020-08-28 Rhoda Calero 21:57:00 [facility] PARTIAL THROMBOPLASTIN TIME (PTT) 2020-08-28 Rhoda Calero 21:57:00 [facility] ESTIMATED GFR 2020-08-28 Maxx Doan 21:57:00 Hospital ECG 12-LEAD 2020-08-28 Rhoda Calero 21:47:56 [facility] MAGNESIUM LEVEL 2020-08-20 Aubrey Carmichael 12:16:00 [facility] BASIC METABOLIC PANEL 2020-08-20 Aubrey Carmichael 12:14:00 [facility] ABN TEST REFUSAL 2020-08-20 Aubrey Carmichael 12:14:00 [facility] PARATHYROID HORMONE 2020-08-20 Aubrey Carmichael 12:14:00 [facility] CBC WITH PLATELET AND DIFFERENTIAL 2020-08-11 Jimbo Berkowitz [facility] 10:00:00 [facility] BASIC METABOLIC PANEL 2020-08-11 Krishna Webb [facility] 10:00:00 [facility] HEPATIC FUNCTION PANEL 2020-08-11 Krishna Webb [facility] 10:00:00 [facility] MAGNESIUM LEVEL 2020-08-11 Krishna Webb [facility] 10:00:00 [facility] PROTHROMBIN TIME WITH INR 2020-08-11 Krishna Webb Method ist 10:00:00 [facility] PHOSPHORUS LEVEL 2020-08-11 Krishna Webb [facility] 10:00:00 [facility] ESTIMATED GFR 2020-08-11 Krishna Webb [facility] 10:00:00 [facility] HC COMPLETE BLD COUNT W/AUTO DIFF 2020-08-10 Santy Berkowitz [facility] 10:38:00 [facility] COMPREHENSIVE METABOLIC PANEL 2020-08-10 Krishna Webb thodist 10:38:00 [facility] PROTHROMBIN TIME WITH INR 2020-08-10 Krishna Webb Method ist 10:38:00 [facility] ESTIMATED GFR 2020-08-10 Krishna Webb [facility] 10:38:00 [facility] US ABDOMINAL PARACENTESIS IMAGING 2020-08-09 Martha Gann [facility] 21:30:00 [facility] HC COMPLETE BLD COUNT W/AUTO DIFF 2020-08-09 Santy Berkowitz [facility] 10:27:00 Hospital RETICULOCYTE COUNT 2020-08-09 Donald Gann [facility] 10:27:00 [facility] COMPREHENSIVE METABOLIC PANEL 2020-08-09 Donald Gann ethodist 10:27:00 Hospital PROTHROMBIN TIME WITH INR 2020-08-09 Donald Gann [facility] 10:27:00 Hospital FIBRINOGEN 2020-08-09 Donald Gann [facility] 10:27:00 Hospital ESTIMATED GFR 2020-08-09 Donald Gann [facility] 10:27:00 Hospital POC GLUCOSE 2020-08-09 Donald Gann [facility] 02:24:00 Hospital HEMOGLOBIN & HEMATOCRIT 2020-08-08 Ilene Berkowitz Method ist 21:46:00 Hospital HC COMPLETE BLD COUNT W/AUTO DIFF 2020-08-08 Gann, Hect or [facility] 09:39:00 Hospital MAGNESIUM LEVEL 2020-08-08 Gann, Donald [facility] 09:39:00 Hospital PHOSPHORUS LEVEL 2020-08-08 Gann, Donald [facility] 09:39:00 Hospital HEPATIC FUNCTION PANEL 2020-08-08 Gann, Donald Methodis t 09:39:00 Hospital PROTHROMBIN TIME WITH INR 2020-08-08 Gann, Donald [facility] dist 09:39:00 Hospital BASIC METABOLIC PANEL 2020-08-08 Gann, Donald [facility] 09:39:00 Hospital ESTIMATED GFR 2020-08-08 Gann, Donald [facility] 09:39:00 Hospital HC COMPLETE BLD COUNT W/AUTO DIFF 2020-08-07 Gann, Hect or [facility] 10:05:00 Hospital PROTHROMBIN TIME WITH INR 2020-08-07 Gann, Donald [facility] dist 10:05:00 Hospital BASIC METABOLIC PANEL 2020-08-07 Gann, Donald [facility] 09:00:00 Hospital HEPATIC FUNCTION PANEL 2020-08-07 Gann, Donald Methodis t 09:00:00 Hospital MAGNESIUM LEVEL 2020-08-07 Gann, Donald [facility] 09:00:00 Hospital PHOSPHORUS LEVEL 2020-08-07 Gann, Donald [facility] 09:00:00 Hospital ESTIMATED GFR 2020-08-07 Gann, Donald [facility] 09:00:00 Hospital US ABDOMINAL LIMITED 2020-08-06 Ilene Berkowitz [facility] 22:47:44 Hospital BASIC METABOLIC PANEL 2020-08-06 Gann, Donald [facility] 09:36:00 Hospital HEPATIC FUNCTION PANEL 2020-08-06 Gann, Donald Methodis t 09:36:00 Hospital HC COMPLETE BLD COUNT W/AUTO DIFF 2020-08-06 Gann, Hect or [facility] 09:36:00 Hospital MAGNESIUM LEVEL 2020-08-06 Gann, Donald [facility] 09:36:00 Hospital PHOSPHORUS LEVEL 2020-08-06 Gann, Donald [facility] 09:36:00 Hospital FOLATE LEVEL 2020-08-06 Donald Gann [facility] 09:36:00 Hospital VITAMIN B12 LEVEL 2020-08-06 Donald Gann [facility] 09:36:00 Hospital RETICULOCYTE COUNT 2020-08-06 Donald Gann [facility] 09:36:00 Hospital FERRITIN LEVEL 2020-08-06 Donald Gann [facility] 09:36:00 Hospital HAPTOGLOBIN 2020-08-06 Donald Gann [facility] 09:36:00 Hospital TOTAL IRON BINDING CAPACITY 2020-08-06 Donald Gann Met hodist 09:36:00 Hospital LDH 2020-08-06 Donald Gann [facility] 09:36:00 Hospital DIRECT KATIE' (MIRZA) 2020-08-06 Donald Gann [facility] 09:36:00 Hospital PERIPHERAL SMEAR 2020-08-06 Donald Gann [facility] 09:36:00 Hospital PROTHROMBIN TIME WITH INR 2020-08-06 Donald Gann [facility] dist 09:36:00 Hospital TYPE AND SCREEN 2020-08-06 Donald Gann [facility] 09:36:00 Hospital ESTIMATED GFR 2020-08-06 Donald Gann [facility] 09:36:00 Hospital BASIC METABOLIC PANEL 2020-08-05 Donald Gann [facility] 09:39:00 Hospital HEPATIC FUNCTION PANEL 2020-08-05 Donald Gannis t 09:39:00 Hospital HC COMPLETE BLD COUNT W/AUTO DIFF 2020-08-05 Martha Gann or [facility] 09:39:00 Hospital MAGNESIUM LEVEL 2020-08-05 Donald Gann [facility] 09:39:00 Hospital PHOSPHORUS LEVEL 2020-08-05 Donald Gann [facility] 09:39:00 Hospital PROTHROMBIN TIME WITH INR 2020-08-05 Donald Gann [facility] 09:39:00 Hospital ESTIMATED GFR 2020-08-05 Donald Gann [facility] 09:39:00 Hospital HC COMPLETE BLD COUNT W/AUTO DIFF 2020-08-04 Gary Webb 09:31:00 [facility] PROTHROMBIN TIME WITH INR 2020-08-04 Krishna Webb Method ist 09:31:00 [facility] BASIC METABOLIC PANEL 2020-08-04 DinjazmynrKrishna Rast[facility]arian 09:31:00 [facility] HEPATIC FUNCTION PANEL 2020-08-04 Dinakar, Krishna [facility]arian 09:31:00 [facility] PHOSPHORUS LEVEL 2020-08-04 Dinakar, Krishna [facility] 09:31:00 [facility] MAGNESIUM LEVEL 2020-08-04 Dinakar, Krishna [facility] 09:31:00 [facility] ESTIMATED GFR 2020-08-04 Aster, Krishna [facility] 09:31:00 [facility] HC COMPLETE BLD COUNT W/AUTO DIFF 2020-08-03 Gary Webb [facility] 10:26:00 [facility] PROTHROMBIN TIME WITH INR 2020-08-03 Krishna Webb Method ist 10:26:00 [facility] BASIC METABOLIC PANEL 2020-08-03 Krishna Webb [facility] 10:26:00 [facility] HEPATIC FUNCTION PANEL 2020-08-03 RoldanrKrishna [facility] 10:26:00 [facility] PHOSPHORUS LEVEL 2020-08-03 Dinakar, Krishna [facility] 10:26:00 [facility] MAGNESIUM LEVEL 2020-08-03 RoldanrKrishna [facility] 10:26:00 [facility] ESTIMATED GFR 2020-08-03 Krishna Webb [facility] 10:26:00 [facility] SMEAR REVIEW 2020-08-03 Krishna Webb [facility] 10:26:00 [facility] US ABDOMINAL PARACENTESIS IMAGING 2020-08-02 Gary Webb [facility] 16:00:00 [facility] AEROBIC CULTURE 2020-08-02 Krishna Webb [facility] 15:58:00 [facility] ANAEROBIC CULTURE 2020-08-02 Krishna Webb [facility] 15:58:00 [facility] GRAM STAIN 2020-08-02 Krishna Webb [facility] 15:58:00 [facility] PROTEIN, MISC FLUID 2020-08-02 Krishna Webb [facility] 15:58:00 [facility] CELL COUNT AND DIFFERENTIAL, BODY 2020-08-02 Gary Webb FLUID 15:58:00 [facility] ALBUMIN, MISC FLUID 2020-08-02 Dinakar, Krihsna [facility]arian 15:58:00 [facility] HC COMPLETE BLD COUNT W/AUTO DIFF 2020-08-02 Ashlynakar, Gary h [facility] 09:42:00 [facility] PROTHROMBIN TIME WITH INR 2020-08-02 Dinakar, Krishna Method ist 09:42:00 [facility] BASIC METABOLIC PANEL 2020-08-02 Dinakar, Krishna [facility] 09:42:00 [facility] HEPATIC FUNCTION PANEL 2020-08-02 Dinakar, Krishna [facility] 09:42:00 [facility] PHOSPHORUS LEVEL 2020-08-02 Dinakar, Krishna [facility] 09:42:00 [facility] MAGNESIUM LEVEL 2020-08-02 Dinakar, Krishna [facility] 09:42:00 [facility] HEMOGLOBIN A1C 2020-08-02 Ashlynakar, Krishna [facility] 09:42:00 [facility] ESTIMATED GFR 2020-08-02 Aster, Krishna [facility] 09:42:00 [facility] URINE CULTURE 2020-08-02 Aster, Krishna [facility] 04:57:00 [facility] URINALYSIS SCREEN AND MICROSCOPY, 2020-08-02 Aster, Gary soto [facility] WITH REFLEX TO CULTURE 04:57:00 [facility] COVID-19 QUALITATIVE RT-PCR 2020-08-02 Krishna Webb Meth odist 04:33:00 [facility] BLOOD CULTURE, AEROBIC & ANAEROBIC 2020-08-02 Aster, Elisabeth valdovinos [facility] 03:34:00 [facility] HC COMPLETE BLD COUNT W/AUTO DIFF 2020-08-02 Ashlynakar, Gary soto [facility] 03:34:00 [facility] BASIC METABOLIC PANEL 2020-08-02 Dinakar, Krishna [facility] 03:33:00 [facility] HEPATIC FUNCTION PANEL 2020-08-02 Ashlynakar, Krishna R[facility] 03:33:00 [facility] MAGNESIUM LEVEL 2020-08-02 Ashlynakar, Krishna Rast[facility]arian 03:33:00 [facility] PHOSPHORUS LEVEL 2020-08-02 Dinakar, Krishna Rast[facility]arian 03:33:00 [facility] PROTHROMBIN TIME WITH INR 2020-08-02 Dinakar, Krishna Method ist 03:33:00 [facility] ESTIMATED GFR 2020-08-02 Krishna Webb 03:33:00 [facility] PREPARE RBC 2020-08-02 Krishna Webb 03:32:00 [facility] TYPE AND SCREEN 2020-08-02 Krishna Webb 03:32:00 [facility] BLOOD CULTURE, AEROBIC & ANAEROBIC 2020-08-02 Elisabeth Webb 03:24:00 [facility] XR CHEST 1 VW PORTABLE 2020-08-02 Krishna Webb R[facility] 01:42:40 [facility] ECG 12-LEAD 2020-08-02 Krishna Webb 00:49:23 [facility] [facility] SPIROMETRY, DIFFUSION, LUNG 2020-05-16 Leeroy Otoole odrosanna VOLUMES, MIPS/MEPS 19:33:19 [facility] HC COMPLETE BLD COUNT W/AUTO DIFF 2020-05-16 Martha Gann or Rastafarian 09:30:00 Hospital BASIC METABOLIC PANEL 2020-05-16 Donald Gann 09:30:00 Hospital HEPATIC FUNCTION PANEL 2020-05-16 Donald Gann t 09:30:00 Hospital PHOSPHORUS LEVEL 2020-05-16 Donald Gann 09:30:00 Hospital MAGNESIUM LEVEL 2020-05-16 Donald Gann 09:30:00 Hospital PROTHROMBIN TIME WITH INR 2020-05-16 Donald Ganno dist 09:30:00 Hospital ESTIMATED GFR 2020-05-16 Donald Gann 09:30:00 Hospital IR VENOUS EMBOLIZATION 2020-05-[address] 21:34:00 Hospital XR CHEST 2 VW 2020-05-15 Dennis Otoole 18:00:00 [facility] HC COMPLETE BLD COUNT W/AUTO DIFF 2020-05-15 Martha Gann 10:00:00 Hospital COMPREHENSIVE METABOLIC PANEL 2020-05-15 Donald Gann ethodist 10:00:00 Hospital PHOSPHORUS LEVEL 2020-05-15 Donald Gann 10:00:00 Hospital MAGNESIUM LEVEL 2020-05-15 Donald Gann Rastafarian 10:00:00 Hospital PROTHROMBIN TIME WITH INR 2020-05-15 Azeem Donald Metho dist 10:00:00 Hospital MISCELLANEOUS REFERRAL TEST 2020-05-15 Segundo Canales Md thodist 10:00:00 Hospital ESTIMATED GFR 2020-05-15 Girma Ganntor Rastafarian 10:00:00 Hospital HC COMPLETE BLD COUNT W/AUTO DIFF 2020-05-14 Martha Gann or Rastafarian 10:51:00 Hospital COMPREHENSIVE METABOLIC PANEL 2020-05-14 Donald Gann ethodist 10:51:00 Hospital PHOSPHORUS LEVEL 2020-05-14 Azeem Donald Rastafarian 10:51:00 Hospital MAGNESIUM LEVEL 2020-05-14 Azeem, Donald Rastafarian 10:51:00 Hospital PROTHROMBIN TIME WITH INR 2020-05-14 Azeem, Donald Metho dist 10:51:00 Hospital ESTIMATED GFR 2020-05-14 Girma Ganntor Rastafarian 10:51:00 Hospital PROTEIN, URINE, 24 HOUR 2020-05-14 Delmi Otoole t 05:30:[address] [facility] [address] ABDOMEN WWO CONTRAST PELVIS W 2020-05-13 Hannah Berkowitz Rastafarian CONTRAST 17:24:08 Hospital HC COMPLETE BLD COUNT W/AUTO DIFF 2020-05-13 Martha Gann or Rastafarian 10:25:00 Hospital COMPREHENSIVE METABOLIC PANEL 2020-05-13 Donald Gann ethodist 10:25:00 Hospital PHOSPHORUS LEVEL 2020-05-13 Gann, Donald Rastafarian 10:25:00 Hospital MAGNESIUM LEVEL 2020-05-13 Gann, Donald Rastafarian 10:25:00 Hospital PROTHROMBIN TIME WITH INR 2020-05-13 Azeem, Donald Metho dist 10:25:00 Hospital ESTIMATED GFR 2020-05-13 Azeem Donald Rastafarian 10:25:00 Hospital ECG 12-LEAD 2020-05-13 Dennis Otoole 04:00:37 [facility] CV RIGHT HEART CATH SELECTIVE 2020-05-13 Xiang Md thodist CORONARY 00:06:21 [facility] HLA TRANSPLANT EVALUATION 2020-05-12 Segundo Canales odrosanna 21:11:00 Hospital LOW RESOLUTION FULL TYPING BY SSO 2020-05-12 Segundo Canales 21:11:00 [facility] SINGLE ANTIGEN BEADS 2020-05-12 Segundo Canales 21:11:00 Hospital C1Q CLASS 1 & 2 ANTIBODY 2020-05-12 Segundo Canales 21:11:00 Hospital US CAROTID DUPLEX BILATERAL 2020-05-12 Segundo Canales thodist 20:10:30 Hospital HEMOCHROMATOSIS (HFE) 3 MUTATIONS 2020-05-12 Segundo Canales 19:14:00 Hospital CYTOMEGALOVIRUS AB, IGG 2020-05-12 Segundo Canales ist 19:13:00 Hospital CYTOMEGALOVIRUS AB, IGM 2020-05-12 Segundo Canales ist 19:13:00 Hospital SYPHILIS TREPONEMA SCREEN WITH RPR 2020-05-12 Tremaine Canales CONFIRMATION (REVERSE ALGORITHM) 19:13:00 Hospital HEPATITIS A ANTIBODY TOTAL 2020-05-12 Segundo Canales hodist 19:13:00 Hospital HEPATITIS A ANTIBODY IGM 2020-05-12 Segundo Canales 19:13:00 [facility] HEPATITIS B SURFACE ANTIGEN 2020-05-12 Segundo Canales [...] 25 HYDROXY LEVEL 2020-05-12 Segundo Canales Met hodrosanna 15:16:00 Hospital CERULOPLASMIN LEVEL 2020-05-12 Segundo Canales 15:16:00 Hospital ALPHA-1 ANTITRYPSIN LEVEL 2020-05-12 Segundo Canales odist 15:16:00 Hospital CREATININE CLEARANCE, URINE, 24 2020-05-12 Segundo Canales HOUR 15:16:00 Hospital CORTISOL LEVEL, RANDOM 2020-05-[address] 15:16:00 [facility] SERUM ELECTROPHORESIS 2020-05-12 Segundo Canales t 15:16:00 [facility] LIPID PANEL 2020-05-12 Segundo Canalesist 15:16:00 Hospital ESTIMATED GFR 2020-05-12 Segundo Canalesist 15:16:00 [facility] HC COMPLETE BLD COUNT W/AUTO DIFF 2020-05-12 Dinakar, Satis h Rastafarian 10:00:00 [facility] PROTHROMBIN TIME WITH INR 2020-05-12 Dinakar, Krishna Method ist 10:00:00 [facility] BASIC METABOLIC PANEL 2020-05-12 Dinakar, Krishna Rastafarian 09:00:00 [facility] MAGNESIUM LEVEL 2020-05-12 Dinakar, Krishna Rastafarian 09:00:00 [facility] HEPATIC FUNCTION PANEL 2020-05-12 Dinakar, Krishna Rastafarian 09:00:00 [facility] PHOSPHORUS LEVEL 2020-05-12 Dinakar, Krishna Rastafarian 09:00:00 [facility] ESTIMATED GFR 2020-05-12 Dinakar, Krishna Rastafarian 09:00:00 [facility] BASIC METABOLIC PANEL 2020-05-11 Dinakar, Krishna Rastafarian 10:00:00 [facility] HC COMPLETE BLD COUNT W/AUTO DIFF 2020-05-11 Dinakar, Satis h Rastafarian 10:00:00 [facility] MAGNESIUM LEVEL 2020-05-11 Dinakar, Krishna Rastafarian 10:00:00 [facility] HEPATIC FUNCTION PANEL 2020-05-11 Dinakar, Krishna Rastafarian 10:00:00 [facility] PHOSPHORUS LEVEL 2020-05-11 Dinakar, Krishna Rastafarian 10:00:00 [facility] PROTHROMBIN TIME WITH INR 2020-05-11 Dinakar, Krishna Method ist 10:00:00 [facility] ESTIMATED GFR 2020-05-11 Dinakar, Krishna Rastafarian 10:00:00 [facility] BASIC METABOLIC PANEL 2020-05-10 Dinakar, Krishna Rastafarian 10:05:00 [facility] HC COMPLETE BLD COUNT W/AUTO DIFF 2020-05-10 Gary Webb Rastafarian 10:05:00 [facility] MAGNESIUM LEVEL 2020-05-10 Krishna Webb Rastafarian 10:05:00 [facility] HEPATIC FUNCTION PANEL 2020-05-10 DinKrishna arroyo Rastafarian 10:05:00 [facility] PHOSPHORUS LEVEL 2020-05-10 RoldanrKrishna Rastafarian 10:05:00 [facility] PROTHROMBIN TIME WITH INR 2020-05-10 Krishna Webb Method ist 10:05:00 [facility] ESTIMATED GFR 2020-05-10 Krishna Webb Rastafarian 10:05:00 [facility] PROTHROMBIN TIME WITH INR 2020-05-09 Ronaldo Burrell Method ist 09:40:00 [facility] COMPREHENSIVE METABOLIC PANEL 2020-05-09 Me Jose thodist 09:40:00 [facility] HC COMPLETE BLD COUNT W/AUTO DIFF 2020-05-09 Dennis Garcia 09:40:00 [facility] ESTIMATED GFR 2020-05-09 Temi Garciaist 09:40:00 [facility] URINE CULTURE 2020-05-08 Segundo Canales 23:47:00 [facility] URINALYSIS SCREEN AND MICROSCOPY, 2020-05-08 Segundo Canales WITH REFLEX TO CULTURE 23:47:00 [facility] US ABDOMINAL DOPPLER 2020-05-08 Dennis Garcia 23:15:00 [facility] US HEPATIC 2020-05-08 Dennis Garcia 23:15:00 [facility] COVID-19 QUALITATIVE RT-PCR 2020-05-08 Leeroy Garcia odist 22:01:00 [facility] HC COMPLETE BLD COUNT W/AUTO DIFF 2020-05-08 Dennis Garcia 22:01:00 [facility] PROTHROMBIN TIME WITH INR 2020-05-08 Ronaldo Burrell Method ist 22:01:00 [facility] COMPREHENSIVE METABOLIC PANEL 2020-05-08 Ronaldo Burrell Me thodist 22:01:00 [facility] MAGNESIUM LEVEL 2020-05-08 Dennis Garcia 22:01:00 [facility] PHOSPHORUS LEVEL 2020-05-08 Dennis Garcia 22:01:00 [facility] ESTIMATED GFR 2020-05-08 Dennis Garcia 22:01:00 [facility] TYPE AND SCREEN 2020-05-08 Segundo Canales 22:01:00 Hospital TOTAL IRON BINDING CAPACITY 2020-05-08 Segundo Canales Md thodist 22:01:00 Hospital ALPHA FETOPROTEIN 2020-05-08 Segundo Canales 22:01:00 Hospital THYROID STIMULATING HORMONE 2020-05-08 Segundo Canales Md thodist 22:01:00 Hospital FERRITIN LEVEL 2020-05-08 Segundo Canales 22:01:00 Hospital BLOOD CULTURE, AEROBIC & ANAEROBIC 2020-05-08 Tremaine Canales h SShelby MembrenoRastafarian 21:50:00 Hospital BLOOD CULTURE, AEROBIC & ANAEROBIC 2020-05-08 Terry Canalesp h SShelby MembrenoRastafarian 21:20:00 Hospital BASIC METABOLIC PANEL 2020-04-14 Vu, Ronna K. Rastafarian 10:30:00 Hospital CBC WITH PLATELET AND DIFFERENTIAL 2020-04-14 Vu, Ronna K. Rastafarian 10:30:00 Hospital HEPATIC FUNCTION PANEL 2020-04-14 Vu, Ronna K. Rastafarian 10:30:00 Hospital MAGNESIUM LEVEL 2020-04-14 Vu, Ronna K. Rastafarian 10:30:00 Hospital PHOSPHORUS LEVEL 2020-04-14 Vu, Ronna K. Rastafarian 10:30:00 Hospital PROTHROMBIN TIME WITH INR 2020-04-14 Vu, Ronna K. Method ist 10:30:00 [facility] ESTIMATED GFR 2020-04-14 Krishna Webb 10:30:00 [facility] MANUAL DIFFERENTIAL 2020-04-14 Krishna Webb 10:30:00 [facility] XR PANOREX 2020-04-13 Ilene Berkowitz 15:17:49 Hospital BASIC METABOLIC PANEL 2020-04-13 Krishna Webb 11:20:00 [facility] HC COMPLETE BLD COUNT W/AUTO DIFF 2020-04-13 Gary Webb 11:20:00 [facility] MAGNESIUM LEVEL 2020-04-13 Dinakar, Krishna Rastafarian 11:20:00 [facility] HEPATIC FUNCTION PANEL 2020-04-13 Dinakar, Krishna Rastafarian 11:20:00 [facility] PHOSPHORUS LEVEL 2020-04-13 Dinakar, Krishna Rastafarian 11:20:00 [facility] PROTHROMBIN TIME WITH INR 2020-04-13 Dinakar, Krishna Method ist 11:20:00 [facility] ESTIMATED GFR 2020-04-13 Dinakar, Krishna Rastafarian 11:20:00 [facility] BASIC METABOLIC PANEL 2020-04-12 Dinakar, Krishna Rastafarian 11:40:00 [facility] HC COMPLETE BLD COUNT W/AUTO DIFF 2020-04-12 Dinakar, Gary soto Rastafarian 11:40:00 [facility] MAGNESIUM LEVEL 2020-04-12 Dinakar, Krishna Rastafarian 11:40:00 [facility] HEPATIC FUNCTION PANEL 2020-04-12 Dinakar, Krishna Rastafarian 11:40:00 [facility] PHOSPHORUS LEVEL 2020-04-12 Dinakar, Krishna Rastafarian 11:40:00 [facility] PROTHROMBIN TIME WITH INR 2020-04-12 Dinakar, Krishna Method ist 11:40:00 [facility] ESTIMATED GFR 2020-04-12 Dinakar, Krishna Rastafarian 11:40:00 [facility] HC COMPLETE BLD COUNT W/AUTO DIFF 2020-04-11 Dinakar, Gary soto Rastafarian 10:30:00 [facility] PROTHROMBIN TIME WITH INR 2020-04-11 Dinakar, Krishna Method ist 10:30:00 [facility] BASIC METABOLIC PANEL 2020-04-11 Dinakar, Krishna Rastafarian 10:00:00 [facility] MAGNESIUM LEVEL 2020-04-11 Dinakar, Krishna Rastafarian 10:00:00 [facility] HEPATIC FUNCTION PANEL 2020-04-11 Dinakar, Krishna Rastafarian 10:00:00 [facility] PHOSPHORUS LEVEL 2020-04-11 Dinakar, Krishna Rastafarian 10:00:00 [facility] ESTIMATED GFR 2020-04-11 Dinakar, Krishna Rastafarian 10:00:00 [facility] XR ABDOMEN 1 VW PORTABLE 2020-04-10 Ilene Berkowitzo dist 20:20:49 Hospital US ABDOMINAL LIMITED 2020-04-10 Ilene Berkowitz Rastafarian 18:30:00 Hospital HC COMPLETE BLD COUNT W/AUTO DIFF 2020-04-10 Dinakar, Satis h Rastafarian 11:20:00 [facility] PROTHROMBIN TIME WITH INR 2020-04-10 Dinakar, Krishna Method ist 11:20:00 [facility] BASIC METABOLIC PANEL 2020-04-10 Dinakar, Krishna Rastafarian 10:00:00 [facility] MAGNESIUM LEVEL 2020-04-10 Dinakar, Krishna Rastafarian 10:00:00 [facility] HEPATIC FUNCTION PANEL 2020-04-10 Dinakar, Krishna Rastafarian 10:00:00 [facility] PHOSPHORUS LEVEL 2020-04-10 Dinakar, Krishna Rastafarian 10:00:00 [facility] ESTIMATED GFR 2020-04-10 Dinakar, Krishna Rastafarian 10:00:00 [facility] BASIC METABOLIC PANEL 2020-04-09 Dinakar, Krishna Rastafarian 12:03:00 [facility] HC COMPLETE BLD COUNT W/AUTO DIFF 2020-04-09 Dinakar, Satis h Rastafarian 12:03:00 [facility] MAGNESIUM LEVEL 2020-04-09 Dinakar, Krishna Rastafarian 12:03:00 [facility] HEPATIC FUNCTION PANEL 2020-04-09 Dinakar, Krishna Rastafarian 12:03:00 [facility] PROTHROMBIN TIME WITH INR 2020-04-09 Dinakar, Krishna Method ist 12:03:00 [facility] PHOSPHORUS LEVEL 2020-04-09 Dinakar, Krishna Rastafarian 12:03:00 [facility] ESTIMATED GFR 2020-04-09 Dinakar, Krishna Rastafarian 12:03:00 [facility] CBC WITH PLATELET AND DIFFERENTIAL 2020-04-08 Dinakar, Sati sh Rastafarian 11:20:00 [facility] PROTHROMBIN TIME WITH INR 2020-04-08 Dinakar, Krishna Method ist 11:20:00 [facility] MANUAL DIFFERENTIAL 2020-04-08 Dinakar, Krishna Rastafarian 11:20:00 [facility] BASIC METABOLIC PANEL 2020-04-08 Dinakar, Krishna Rastafarian 10:00:00 [facility] MAGNESIUM LEVEL 2020-04-08 Krishna Webb Rastafarian 10:00:00 [facility] HEPATIC FUNCTION PANEL 2020-04-08 Krishna Webb Rastafarian 10:00:00 [facility] PHOSPHORUS LEVEL 2020-04-08 Roldanr, Krishna Rastafarian 10:00:00 [facility] ESTIMATED GFR 2020-04-08 Krishna Webb Rastafarian 10:00:00 [facility] HC COMPLETE BLD COUNT W/AUTO DIFF 2020-04-07 Girma Gannt or Rastafarian 07:35:00 Hospital BASIC METABOLIC PANEL 2020-04-07 Gann, Donald Rastafarian 07:35:00 Hospital HEPATIC FUNCTION PANEL 2020-04-07 Gann, Donald Methodis t 07:35:00 Hospital MAGNESIUM LEVEL 2020-04-07 Gann, Donald Rastafarian 07:35:00 Hospital PROTHROMBIN TIME WITH INR 2020-04-07 Gann, Donald Metho dist 07:35:00 Hospital ESTIMATED GFR 2020-04-07 Gann, Donald Rastafarian 07:35:00 Hospital HC COMPLETE BLD COUNT W/AUTO DIFF 2020-04-06 GannGirma kwant or Rastafarian 10:00:00 Hospital BASIC METABOLIC PANEL 2020-04-06 Gann, Donald Rastafarian 10:00:00 Hospital HEPATIC FUNCTION PANEL 2020-04-06 Gann, Donald Methodis t 10:00:00 Hospital MAGNESIUM LEVEL 2020-04-06 Gann, Donald Rastafarian 10:00:00 Hospital PROTHROMBIN TIME WITH INR 2020-04-06 Gann, Donald Metho dist 10:00:00 Hospital ESTIMATED GFR 2020-04-06 Gann, Donald Rastafarian 10:00:00 Hospital HC COMPLETE BLD COUNT W/AUTO DIFF 2020-04-05 GannGirma kwant or Rastafarian 11:00:00 Hospital BASIC METABOLIC PANEL 2020-04-05 Gann, Donald Rastafarian 11:00:00 Hospital HEPATIC FUNCTION PANEL 2020-04-05 Gann, Donald Methodis t 11:00:00 Hospital MAGNESIUM LEVEL 2020-04-05 Gann Donald Rastafarian 11:00:00 Hospital PROTHROMBIN TIME WITH INR 2020-04-05 Gann, Donald Metho dist 11:00:00 Hospital ESTIMATED GFR 2020-04-05 Gann, Donald Rastafarian 11:00:00 Hospital HC COMPLETE BLD COUNT W/AUTO DIFF 2020-04-04 Gann, Hect or Rastafarian 10:05:00 Hospital BASIC METABOLIC PANEL 2020-04-04 Gann, Donald Rastafarian 10:05:00 Hospital HEPATIC FUNCTION PANEL 2020-04-04 Gann, Donald Methodis t 10:05:00 Hospital MAGNESIUM LEVEL 2020-04-04 Gann, Donald Rastafarian 10:05:00 Hospital PROTHROMBIN TIME WITH INR 2020-04-04 Gann, Donald Metho dist 10:05:00 Hospital ESTIMATED GFR 2020-04-04 Gann, Donald Rastafarian 10:05:00 Hospital HC COMPLETE BLD COUNT W/AUTO DIFF 2020-04-03 Gann, Hect or Rastafarian 11:40:00 Hospital BASIC METABOLIC PANEL 2020-04-03 Gann, Donald Rastafarian 11:40:00 Hospital HEPATIC FUNCTION PANEL 2020-04-03 Gann, Donald Methodis t 11:40:00 Hospital MAGNESIUM LEVEL 2020-04-03 Gann, Donald Rastafarian 11:40:00 Hospital PHOSPHORUS LEVEL 2020-04-03 Gann, Donald Rastafarian 11:40:00 Hospital PROTHROMBIN TIME WITH INR 2020-04-03 Gann, Donald Metho dist 11:40:00 Hospital ESTIMATED GFR 2020-04-03 Gann, Donald Rastafarian 11:40:00 Hospital TTE COMPLETE, W CONTRAST, W 2020-04-03 Ilene Berkowitz Md thodist DOPPLER ([id number]) 04:00:00 Hospital AEROBIC CULTURE 2020-04-02 Nuria Dennis 16:39:00 Hospital ANAEROBIC CULTURE 2020-04-02 Nuria Dennis 16:39:00 Hospital GRAM STAIN 2020-04-02 Nuria Dennis 16:39:00 Hospital PROTEIN, MISC FLUID 2020-04-02 Fauria, Ilene Rastafarian 16:39:00 Hospital ALBUMIN, MISC FLUID 2020-04-02 Ilene Berkowitz Rastafarian 16:39:00 Hospital CELL COUNT AND DIFFERENTIAL, BODY 2020-04-02 Nuria Dennis FLUID 16:38:00 Hospital BODY FLUID CONSULT 2020-04-02 Nuria Dennis 16:38:00 Hospital US ABDOMINAL PARACENTESIS IMAGING 2020-04-02 Nuria Dennis 16:35:00 Hospital CBC WITH PLATELET AND DIFFERENTIAL 2020-04-02 Girma Gann tor Rastafarian 10:40:00 Hospital BASIC METABOLIC PANEL 2020-04-02 Gann, Donald Rastafarian 10:40:00 Hospital HEPATIC FUNCTION PANEL 2020-04-02 Girma Ganntor Methodis t 10:40:00 Hospital MAGNESIUM LEVEL 2020-04-02 Gann, Donald Rastafarian 10:40:00 Hospital PHOSPHORUS LEVEL 2020-04-02 Gann, Donald Rastafarian 10:40:00 Hospital PROTHROMBIN TIME WITH INR 2020-04-02 Azeem Donald Metho dist 10:40:00 Hospital B NATRIURETIC PEPTIDE 2020-04-02 Girma Ganntor Rastafarian 10:40:00 Hospital ESTIMATED GFR 2020-04-02 Donald Gann Rastafarian 10:40:00 Hospital MANUAL DIFFERENTIAL 2020-04-02 Girma Ganntor Rastafarian 10:40:00 Hospital FIBRINOGEN 2020-04-01 Cecy Martinez Rastafarian 21:00:00 [facility] HC COMPLETE BLD COUNT W/AUTO DIFF 2020-04-01 Martha Gann or Rastafarian 11:00:00 Hospital BASIC METABOLIC PANEL 2020-04-01 Gann, Donald Rastafarian 11:00:00 Hospital HEPATIC FUNCTION PANEL 2020-04-01 Gann, Donald Methodis t 11:00:00 Hospital MAGNESIUM LEVEL 2020-04-01 Gann, Donald Rastafarian 11:00:00 Hospital PHOSPHORUS LEVEL 2020-04-01 Gann, Donald Rastafarian 11:00:00 Hospital PROTHROMBIN TIME WITH INR 2020-04-01 Gann, Donald Metho dist 11:00:00 Hospital HEMOGLOBIN A1C 2020-04-01 Donald Gann 11:00:00 Hospital THYROID STIMULATING HORMONE 2020-04-01 Donald Gann Met hodist 11:00:00 Hospital T4 2020-04-01 Donald Gann 11:00:00 Hospital B NATRIURETIC PEPTIDE 2020-04-01 Donald Gann Rastafarian 11:00:00 Hospital ALPHA FETOPROTEIN 2020-04-01 Donald Gann Rastafarian 11:00:00 Hospital ESTIMATED GFR 2020-04-01 Donald Gann Rastafarian 11:00:00 Hospital URINALYSIS, AUTOMATED WITH 2020-04-01 Donald Gann Meth odist MICROSCOPY 08:50:00 Hospital TROPONIN 2020-04-01 Bailee, Ronna-Karen Rastafarian 07:20:00 [facility] CT ABDOMEN PELVIS WO CONTRAST 2020-04-01 Dawn Figueredo thodist 06:53:40 [facility] US ABDOMINAL DOPPLER 2020-04-01 Dawn Figueredo 06:10:00 [facility] US ABDOMEN COMPLETE 2020-04-01 Dawn Figueredo 05:30:00 [facility] COVID-19 QUALITATIVE RT-PCR 2020-04-01 Dawn Figueredo 04:33:00 [facility] PROTHROMBIN TIME WITH INR 2020-04-01 Dawn Figueredo ist 04:26:00 [facility] PARTIAL THROMBOPLASTIN TIME (PTT) 2020-04-01 Sharlene Figueredo 04:26:00 [facility] LIPASE LEVEL 2020-04-01 Dawn Figueredo 04:26:00 [facility] TROPONIN 2020-04-01 Morocho, Ronna-Karen Rastafarian 04:26:00 [facility] HC COMPLETE BLD COUNT W/AUTO DIFF 2020-04-01 Morocho, Ronna-A nh Rastafarian 03:12:00 [facility] COMPREHENSIVE METABOLIC PANEL 2020-04-01 Morocho, Ronna-Karen M ethodist 03:12:00 [facility] TROPONIN 2020-04-01 Morocho, Ronna-Karen Rastafarian 03:12:00 [facility] B NATRIURETIC PEPTIDE 2020-04-01 [facility]:12:00 [facility] ESTIMATED GFR 2020-04-01 [facility] 03:12:00 [facility] US DUPLEX VENOUS LOWER EXTREMITY 2020-04-01 Dawn Figueredo BILATERAL 02:50:00 [facility] XR CHEST 1 VW PORTABLE 2020-04-01 Dawn Figueredo 02:04:53 [facility] ECG 12-LEAD 2020-04-01 Bailee Counts Include [facility] Rastafarian 00:22:47 [facility] Plan of Care Planned Activity Planned Date [...] Diana ter VACCINE (#1)] Future Scheduled [address] [facility] 00:00:00 (combo) [code = CT Medical C enter Colonography (combo)] Future Scheduled [address] [facility] 00:[facility] colon (procedure) [code = 303996572] Future Scheduled [address] [facility] 00:00:00 [facility] colon (procedure) [code = 040376133] Future Scheduled [address] [facility] 00:00:00 [facility] colon (procedure) [code = 539575070] Future Scheduled [address] [facility] 00[facility]00:00 [facility] colon (procedure) [code = 214356862] Future Scheduled 1950 Sigmoidoscopy [code = [facility] Future Scheduled 65+ [facility] VACCINE (1 of 4 - PCV13) [code = 65+ PNEUMOCOCCAL VACCINE (1 of 4 - PCV13)] Future Scheduled COVID-19 VACCINE (1) Met [facility] Test [code = COVID-19 VACCINE (1)] Future Scheduled COLONOSCOPY [facility]CREENING [facility] [code = COLONOSCOPY SCREENING] Future Scheduled SHINGLES VACCINES (#1) [facility] Test [code = SHINGLES VACCINES (#1)] Future Scheduled INFLUENZA VACCINE [facility] [code = INFLUENZA VACCINE] Encounters Start End Encounter Admission Attending Care Care Encounter Source Date/Time Date/Time Type Type Clinicians Facility Department ID 2020-11-29 Inpatient ER LYDIA, [facility] Gastro [id number] [facility] 18:34:02 CHIMKAMA 2021-11-24 2021-11-24 Outpatient AMOL, [facility] [id number] [place] 00:00:00 00:00:00 [address] 2021-11-19 2021-11-19 [facility] [id number] [place] 00:00:00 00:00:00 RAFIK [address] 2021-11-19 2021-11-19 Outpatient KAY, [facility] [id number] [place] 00:00:00 00:00:00 RAFIK [address] 2021-11-19 2021-11-19 Outpatient [facility] [id number] [place] 00:00:00 00:00:[address] 2021-11-19 2021-11-19 Outpatient SAHARIA, [facility] [id number] [place] 00:00:00 00:00:00 MARTI [address] 2021-11-12 2021-11-12 Outpatient SAHARIA, [facility] [id number] [place] 00:00:00 00:00:00 MARTI [address] 2021-11-04 2021-11-04 Outpatient KAY, [facility] [id number] [place] 00:00:00 00:00:00 RAFIK [address] 2021-10-30 2021-11-02 Inpatient KAY, [facility] 012 [id number] [place] 00:00:00 00:00:00 RAFIK [address] 2021-10-28 2021-10-28 Outpatient AMOL, [facility] [id number] [place] 00:00:00 00:00:00 AUBREY [address] 2021-10-27 2021-10-27 Outpatient SAHARIA, [facility] [id number] [place] 00:00:00 00:00:00 MARTI [address] 2021-10-22 2021-10-22 Outpatient KAY, [facility] [id number] [place] 00:00:00 00:00:00 RAFIK [address] 2021-10-20 2021-10-20 Outpatient AMOL, [facility] [id number] [place] 00:00:00 00:00:00 AUB[address]Y [address] 2021-10-19 2021-10-19 Outpatient FOG_Dieter_ [facility] A[facility] [id number] Svetlana 00:00:00 00:00:00 Chris_LO [id number] [facility] 2021-10-19 2021-10-19 Outpatient SAHARIA, [facility] [id number] [place] 00:00:00 00:00:00 MARTI 907 [address] i 2021-10-15 2021-10-15 Outpatient KAY, [facility] [id number] [place] 00:00:00 00:00:00 CANDYIK 809 Method i 2021-10-15 2021-10-15 Outpatient KAY, [facility] [id number] [place] 00:00:00 00:00:00 RAFIK 810 Method i 2021-10-05 2021-10-05 Outpatient SAHARIA, [facility] [id number] [place] 00:00:00 00:00:00 MARTI 811 Method i 2021-10-01 2021-10-01 Outpatient SAHARIA, [facility] [id number] [place] 00:00:00 00:00:00 MARTI 812 Method i 2021-09-24 2021-09-28 Inpatient ELADIO, [facility] 064 [id number] [place] 00:00:00 00:00:00 KASH 787 Method i 2021-09-24 2021-09-24 Outpatient KAY, [facility] [id number] [place] 00:00:00 00:00:00 CANDYIK 128 Method i 2021-09-24 2021-09-24 Outpatient SAHARIA, [facility] [id number] [place] 00:00:00 00:00:00 MARTI 274 Method i 2021-09-21 2021-09-21 Outpatient CHAPMAN, [facility] [id number] 323 [place] 00:00:00 00:00:00 NICHOLE 347 Method i 2021-09-20 2021-09-20 Emergency HAGER, [facility] 997 [id number] [place] 00:00:00 00:00:00 TYESHA 393 Method i 2021-09-17 2021-09-17 Outpatient SAHARIA, [facility] [id number] 2170 [place] 00:00:00 00:00:00 MARTI 116 Method i 2021-09-14 2021-09-14 Outpatient SAHARIA, [facility] [id number] [place] 00:00:00 00:00:00 MARTI 142 Method i 2021-09-042021-09-10 Inpatient ELADIO, [facility] 064 [id number] 91 [place] 00:00:00 00:00:00 KASH 031 Method i 2021-09-03 2021-09-03 Outpatient SAHARIA, [facility] [id number] [place] 00:00:00 00:00:00 MARTI 851 Method i 2021-08-31 2021-08-31 Outpatient SAHARIA, [facility] [id number] [place] 00:00:00 00:00:00 MARTI 653 Method i 2021-08-25 2021-08-25 Outpatient SAHARIA, [facility] [id number] [place] 00:00:00 00:00:00 MARTI 644 Method i 2021-08-20 2021-08-20 Outpatient KAY, [facility] [id number] [place] 00:00:00 00:00:00 RAFIK 773 Method i 2021-08-20 2021-08-20 Outpatient KAY, [facility] [id number] [place] 00:00:00 00:00:00 RAFIK 774 Method i 2021-08-20 2021-08-20 Outpatient [facility] [id number] [place] 00:00:00 00:00:00 640 Method i 2021-08-17 2021-08-17 Outpatient KAY, [facility] [id number] [place] 00:00:00 00:00:00 RAFIK 771 Method i 2021-08-06 2021-08-11 Inpatient BLAKE, [facility] 012 [id number] [place] 00:00:00 00:00:00 LORRAINE 924 Method i 2021-06-29 2021-08-06 Inpatient RACHID, [facility] 031 [id number] [place] 00:00:00 00:00:00 ZORAIDA 332 Meth asif 2021-06-29 2021-06-29 Outpatient SAHARIA, [facility] [id number] [place] 00:00:00 00:00:00 MARTI 036 Method i 2021-06-25 2021-06-25 Outpatient SAHARIA, [facility] [id number] [place] 00:00:00 00:00:00 MARTI 018 Method i 2021-06-25 2021-06-25 Outpatient SAHARIA, [facility] [id number] [place] 00:00:00 00:00:00 MARTI [address] 2021-06-25 2021-06-25 Outpatient [facility] [id number] [place] 00:00:00 00:00:00 151 Method i 2021-06-25 2021-06-25 Outpatient KAY, [facility] [id number] [place] 00:00:00 00:00:00 RAFIK 063 Method i 2021-06-22 2021-06-22 Outpatient SAHARIA, [facility] [id number] [place] 00:00:00 00:00:00 MARTI 551 Method i 2021-05-27 2021-06-18 Inpatient TASTARD, [facility] 156 [id number] [place] 00:00:00 00:00:00 ETELVINA 952 Method i 2021-06-10 2021-06-10 Outpatient GERHARDRUDDY [facility] [id number] [place] 00:00:00 00:00:00 162 Method i 2021-05-13 2021-05-27 Inpatient SAHARIA, [facility] 227 [id number] [place] 00:00:00 00:00:00 MARTI 324 Method i 2021-05-05 2021-05-13 Inpatient BLAKE, [facility] 019 [id number] [place] 00:00:00 00:00:00 LORRAINE 861 Method i 2021-02-25 2021-05-05 Inpatient SAHARIA, [facility] 159 [id number] [place] 00:00:00 00:00:00 MARTI 082 Method i 2021-02-26 2021-02-26 Outpatient GALATI, [facility] [id number] [place] 00:00:00 00:00:00 SEGUNDO 869 Method i 2021-02-24 2021-02-24 Laboratory Only, Adc Test [facility] 1.2.840. 114 [id number] [facility] 13:45:00 14:00:00 Only Shellie Pisano 350.1.13.10 [facility] 4.2.7.2.686 [facility] [phone] [facility] mikey [address] 2021-02-24 2021-02-24 Outpatient Darron PISANO, [facility] [id number] [facility] 13:45:00 13:45:00 SHELLIE sebastian [facility] 2021-02-19 2021-02-19 Outpatient GALATI, [facility] [id number] [place] 00:00:00 00:00:00 SEGUNDO 430 Method i 2021-02-10 2021-02-10 Outpatient AMOL, [facility] [id number] [place] 00:00:00 00:00:00 AUBREY 235 Metho di 2021-01-19 2021-01-24 Inpatient NURIA DENNIS [facility] 064 [id number] [place] 00:00:00 00:00:00 575 Method i 2021-01-09 2021-01-09 Outpatient GALATI, [facility] [id number] [place] 00:00:00 00:00:00 SEGUNDO 520 Method i 2021-01-06 2021-01-06 Laboratory Only, Adc Test [facility] 1.2.840. 114 [id number] Univers 11:25:29 11:40:29 Only Shellie Pisano 350.1.13.10 [facility] 4.2.7.2.686 [facility] [phone] [address] 2021-01-06 2021-01-06 Outpatient Darron PISANO, [facility] [id number] [facility] 11:30:00 11:30:00 SHELLIE sebastian [facility] 2021-01-01 2021-01-01 Outpatient GALATI, [facility] [id number] [place] 00:00:00 00:00:00 SEGUNDO 277 Method i 2020-12-19 2020-12-19 Outpatient GALATI, [facility] [id number] [place] 00:00:00 00:00:00 SEGUNDO 918 Method i 2020-12-16 2020-12-16 Outpatient AMOL, [facility] [id number] [place] 00:00:00 00:00:00 AUBREY 688 Metho di 2020-12-12 2020-12-12 Outpatient GALATI, [facility] [id number] 187 [place] 00:00:00 00:00:00 SEGUNDO 843 Method i 2020-12-02 2020-12-02 Outpatient GALATI, [facility] [id number] 189 [place] 00:00:00 00:00:[address] SEGUNDO [address] 2020-11-26 2020-11-26 Laboratory Only, Adc Test [facility] 1.2.840. 114 [id number] Univers 11:24:51 11:39:51 Only Shellie Pisano 350.1.13.10 ity [facility] 4.2.7.2.686 [facility] [phone] [place] [address] [address] 2020-11-26 2020-11-26 Outpatient R LUCIANA, [facility] [id number] Univers 11:30:00 11:30:00 SHELLIE proctor [facility] 2020-11-26 2020-11-26 Orders Doctor RICHEY 1.2.840.114 [id number] [facility] 00:00:00 00:00:00 Only Unassigned, ORQUIDEA 350.1.13.10 [facility] 4.2.7.2.686 [facility] [phone] [facility] [address] 2020-11-19 2020-11-19 [facility] [id number] [place] 00:00:00 00:00:00 AUBREY 886 Metho di 2020-11-13 2020-11-13 [facility]patient [facility] [id number] [place] 00:00:00 00:00:00 AUBREY 854 Metho di 2020-10-14 2020-10-22 Inpatient RONALDO [facility] 064 [id number] [place] 00:00:00 00:00:00 RADHA, 661 Method i YRIS 2020-10-07 2020-10-07 Outpatient HOPSON, [facility] [id number] [place] 00:00:00 00:00:00 SCOTTIE 309 Method i 2020-10-02 2020-10-02 [facility]patient [facility] [id number] [place] 00:00:00 00:00:00 AUBREY 352 Metho di 2020-10-02 2020-10-02 Orders Doctor RICHEY 1.2.840.114 [id number] [facility] 00:00:00 00:00:00 Only Unassigned, ORQUIDEA 350.1.13.10 ity of [place] [facility] 4.2.7.2.686 Julio as [phone] [address] 2020-10-01 2020-10-01 Emergency CONRAD, [facility] 643 [id number] [place] 00:00:00 00:00:00 SURESH [address] 2020-09-30 2020-09-30 Outpatient [facility] [id number] Univers 00:00:00 00:00:00 ity [facility] 2020-09-23 2020-09-23 Outpatient [facility] [id number] Univers 00:00:00 00:00:00 ity [facility] 2020-09-23 2020-09-23 Telephone Alli, 1.2.840.1 [id number] Methodi 00:00:00 00:00:[address] [place] [address] 3.430.2.7 Hospit a .3.040174 l .8 2020-09-23 2020-09-23 Orders Doctor KAIDEN 1.2.840.[id number] [place] [address] 00:00:00 00:00:00 Only Unassigned, ORQUIDEA 350.1.13.10 ity of [place] [facility] 4.2.7.2.686 Julio as [phone] [address] 2020-09-19 2020-09-19 Office Amol, 1.2.840.7 [id number] 62943 Methodi 10:10:33 10:57:26 Visit Aubrey 15996.1.[address] Wilfredo 3.430.2.7 Hospit a .3.756262 l .8 2020-09-19 2020-09-19 Travel 1.2.840.1 1.2.670.808 4038 470774 Methodi 00:00:00 00:00:[address] 3.430.2.7 0.2.7.3.698 Ho spita .3.646476 084.8 l .8 2020-08-28 2020-09-01 Hospital AZEEM, 1.2.840.1 [id number] [id number] [place] 00:00:00 00:00:00 Encounter DONALD 03290.1.1 [address] .3.820549 .8 2020-08-30 2020-08-30 Surgery Hu, 1.2.840.1 [id number] 0631 Methodi 14:02:00 15:02:00 Ruddy Will 78512.1.[address] 3.430.2.7 Hospit a .3.360745 l .8 2020-08-30 2020-08-30 Anesthesia Fang, 1.2.840.1 [id number] 21 [id number] Methodi 13:18:00 13:51:00 [place] [address] 3.430.2.7 Hospit a .3.445759 l .8 2020-08-29 2020-08-29 Documentat Mina, 1.2.840.1 [id number] 21 [id number] Methodi 00:00:00 00:00:00 ion Romaine 66770.1.[address] Zen 3.430.2.7 Hospit a .3.624365 l .8 2020-08-26 2020-08-26 Outpatient [facility] [id number] 623 Univers 00:00:00 00:00:00 ity [facility] 2020-08-22 2020-08-22 Jovanny Carmichael 1.2.840.0 [id number] 005 [id number] Methodi 10:02:06 15:56:55 Consult Aubrey 92138.1.[address] Wilfredo 3.430.2.7 Hospit a .3.144450 l .8 2020-08-21 2020-08-21 Travel 1.2.840.1 1.2.409.640 0385 [id number] Methodi 00:00:00 00:00:[address] 3.430.2.7 0.2.7.3.698 Ho spita .3.929123 084.8 l .8 2020-08-20 2020-08-20 Orders Amol, 1.2.840.4 [id number] Methodi 00:00:00 00:00:00 Only Aubrey 82687.1.[address] Wilfredo 3.430.2.7 Hospit a .3.577793 l .8 2020-08-20 2020-08-20 Orders Amol, 1.2.840.6 [id number] 95676 Methodi 00:00:00 00:00:00 Only Aubrey 95237.1.[address] Wilfredo 3.430.2.7 Hospit a .3.771582 l .8 2020-08-15 2020-08-15 Orders Soterokaran, 1.2.840.1 [id number] 3987 Methodi 00:00:00 00:00:00 Only Segundo Bradley 97907.1.[address] 3.430.2.7 Hospit a .3.528315 l .8 2020-08-01 2020-08-11 [facility], 1.2.840.1 [id number] 2100 [id number] [place] 00:00:00 00:00:00 Encounter KRISHNA 47023.1.1 [address] .3.764984 .8 2020-08-08 2020-08-08 [facility] 1.2.840.1 [id number] Methodi 00:00:00 00:00:00 ion Romaine 20669.1.[address] Zen 3.430.2.7 Hospit a .3.977396 l .8 2020-08-08 2020-08-08 Orders Parker, 1.2.840.1 [id number] 303686 5386 Methodi 00:00:00 00:00:00 Only Segundo Bradley 89012.1.[address] 3.430.2.7 Hospit a .3.804640 l .8 2020-08-07 2020-08-07 Documentat Delcano, 1.2.840.1 [id number] Methodi 00:00:00 00:00:00 ion Romaine 53246.1.[address] Zen 3.430.2.7 Hospit a .3.110974 l .8 2020-08-052020-08-05 Documentat Delcano, 1.2.840.1 [id number] 21 [id number] Methodi 00:00:00 00:00:00 ion Romaine 24127.1.[address] Zen 3.430.2.7 Hospit a .3.391200 l .8 2020-08-04 2020-08-04 Hospital [facility], 1.2.840.1 [id number] [place] 00:00:00 00:00:00 Encounter SEGUNDO 29824.1.1 [address] .3.204624 .8 2020-08-01 2020-08-[address] [facility], 1.2.840.1 [id number] 2514 Methodi 00:00:00 00:00:00 Only Segundo Bradley 69673.1.[address] 3.430.2.7 Hospit a .3.178575 l .8 2020-07-31 2020-07-31 Travel 1.2.840.1 1.2.974.350 6895 838440 Methodi 00:00:00 00:00:[address] 3.430.2.7 0.2.7.3.698 Ho spita .3.046494 084.8 l .8 2020-07-31 2020-07-[address] [facility], 1.2.840.1 [id number] 102 [id number] Methodi 00:00:00 00:00:00 Orders Segundo Bradley 60428.1.[address] 3.430.2.7 Hospit a .3.003353 l .8 2020-05-08 2020-05-16 [facility] Yris Garcia 1.2.840.1 [id number] Methodi 15:04:00 17:19:00 Encounter Krishna Webb 38293.1.[address] Gann, Donald 3.430.2.7 Hospita .3.576609 l .8 2020-05-16 2020-05-16 Documentat Sho, 1.2.840.1 [id number] 658 [id number] Methodi 00:00:00 00:00:[address] 51513.1.[address] 3.430.2.7 Hospit a .3.510935 l .8 2020-05-16 2020-05-16 Telephone Mian, 1.2.840.1 [id number] 833 [id number] Methodi 00:00:00 00:00:[address] Zen 3.430.2.7 Hospit a .3.927370 l .8 2020-05-15 2020-05-15 Documentat Mina, 1.2.840.1 [id number] Methodi 00:00:00 00:00:00 ion Romaine 70777.1.[address] Zen 3.430.2.7 Hospit a .3.040434 l .8 2020-05-12 2020-05-12 Surgery [facility], 1.2.840.1 [id number] 668 [id number] Methodi 20:05:00 21:05:[address] 3.430.2.7 Hospit a .3.378468 l .8 2020-05-12 2020-05-12 Telephone Mina, 1.2.840.1 [id number] Methodi 00:00:00 00:00:[address] Zen 3.430.2.7 Hospit a .3.443182 l .8 2020-05-12 2020-05-12 Telephone Mina, 1.2.840.1 [id number] 374 [id number] Methodi 00:00:00 00:00:[address] Zen 3.430.2.7 Hospit a .3.104463 l .8 2020-05-12 2020-05-12 Telephone De Oliveira, 1.2.840.1 [id number] 2099 [id number] Methodi 00:00:00 00:00:[address] 3.430.2.7 Hospit a .3.171841 l .8 2020-05-08 2020-05-08 Travel 1.2.840.1 1.2.830.113 5632 025761 Methodi 00:00:00 00:00:[address] 3.430.2.7 0.2.7.3.698 Ho spita .3.283954 084.8 l .8 2020-03-31 2020-04-14 [facility] 1.2.840.1 10 [id number] Methodi 18:34:00 16:38:00 Encounter Donald Gann 32239.1.[address] Nuria Dennis 3.430.2.7 Hos kayleigh Aster, Krishna Bo .3.681776 l .8 2020-01-04 2020-01-04 Outpatient R JOSLYN, [facility] [id number] [facility] 11:20:00 13:06:54 STEPHANIE proctor [facility] 2020-01-04 2020-01-04 Urgent Provider, [facility] 1.2.737.473 8214 5431 11:30:05 11:50:05 Care [facility] 350.1.13.10 Care Hiko 4.2.7.2.686 Professio [phone] [place] [address] [address] One 2020-01-04 2020-01-04 Urgent Provider, [facility] 1.2.840.114 [id number] [facility] 11:30:05 11:50:05 Care [facility] 350.1.13.10 ity of [place] 4.2.7.2.686 Julio as Professio [phone] [address] Office Building One 2019-12-25 2019-12-25 [facility] 1.2.840.114 [id number] 744 Univers 17:53:12 23:59:00 Encounter Jono Cameron 350.1.13.10 ity of [place] 4.2.7.2.686 [phone] [address] 2019-12-25 2019-12-25 Urgent Provider, [facility] 1.2.769.123 3262 3230 17:09:55 18:06:32 Care [facility] 350.1.13.10 Care Hiko 4.2.7.2.686 Professio [phone] [place] [address] Office Building [facility] 2019-12-25 2019-12-25 Urgent Provider, [facility] 1.2.840.114 [id number] Univers 17:09:55 18:06:32 Care Jono Patten [facility] 350.1.13.10 ity of [place] 4.2.7.2.686 Julio as Professio [phone] [address] Office [address] One 2019-12-25 2019-12-25 Laboratory Lab, Adc Fam Pob I [facility] 1.2. 840.114 [id number] Univers 16:48:31 17:08:31 [facility] 350.1.13.10 ity of [place] 4.2.7.2.686 Julio as Professio [phone] [address] Office Building [facility] 2019-12-25 2019-12-25 Outpatient R SANDOR [facility] [id number] Univers 17:00:00 17:00:00 JONO ity of [facility] 2019-12-25 2019-12-25 Letter Doctor KAIDEN 1.2.840.114 [id number] Univers 00:00:00 00:00:00 (Out) Unassigned, ORQUIDEA 350.1.13.10 ity of [place] [facility] 4.2.7.2.686 Julio as [phone] [address] 2018-05-01 2018-05-01 Out[facility] [id number] Common 15:00:00 15:00:00 [facility] Results Test Description Test Time Test Comments Results Result Comments Source SARS-CoV-2 (COVID-19) RNA [Presence] in Respiratory sp ecimen by 2021-10-30 23:33:32 MARC with probe detection Test Item Value Reference Range Interpretation Comme nts SARS-CoV-2 (COVID-19) RNA [Presence] in Respiratory specimen by Not detected MARC with probe detection (test code = 21420-0) Whether patient is employed in a healthcare setting (test code = Un known 12433-7) Whether the patient has symptoms related to condition of interest U nknown (test code = 23860-9) Whether the patient was hospitalized for condition of interest Unkn own (test code = 76783-8) Whether the patient was admitted to intensive care unit (ICU) for U nknown condition of interest (test code = 96348-3) Whether patient resides in a congregate care setting (test code = U nknown 72981-4) status (test code = 36071-2) Unknown Date and time of symptom onset (test code = 17836-8) Unknown TERESA COLLINS UVJCKCOR-DnB-8 (COVID-19) RNA [Presence] in Respiratory specimen by MARC with probe [id number] 19:52:42 Test Item Value Reference Range Interpretation Comments SARS-CoV-2 (COVID-19) RNA Not detected [Presence] in Respiratory specimen by MARC with probe detection (test code = 12724-7) Whether patient is employed in a Unknown healthcare setting (test code = 59251-9) Whether the patient has symptoms Unknown related to condition of interest (test code = 71046-2) Whether the patient was Unknown hospitalized for condition of interest (test code = 26846-7) Whether the patient was admitted Unknown to intensive care unit (ICU) for condition of interest (test code = 04973-3) Whether patient resides in a Unknown congregate care setting (test code = 22575-7) status (test code = Unknown 00107-0) Date and time of symptom onset Unknown (test code = 07675-2) TERESA GARCIASARS-CoV-2 (COVID-19) RNA [Presence] in Respiratory specimen by MARC with probe [id number] 19:38:51 Test Item Value Reference Range Interpretation Comments SARS-CoV-2 (COVID-19) RNA Not detected [Presence] in Respiratory specimen by MARC with probe detection (test code = 16849-9) Whether patient is employed in a Unknown healthcare setting (test code = 50097-8) Whether the patient has symptoms Unknown related to condition of interest (test code = 80094-5) Whether the patient was Unknown hospitalized for condition of interest (test code = 90637-1) Whether the patient was admitted Unknown to intensive care unit (ICU) for condition of interest (test code = 82914-5) Whether patient resides in a Unknown congregate care setting (test code = 29202-4) status (test code = Unknown 48522-0) Date and time of symptom onset Unknown (test code = 79738-4) TERESA GARCIASARS-CoV-2 (COVID-19) RNA [Presence] in Respiratory specimen by MARC with probe [id number] 17:50:30 Test Item Value Reference Range Interpretation Comments SARS-CoV-2 (COVID-19) RNA Not detected [Presence] in Respiratory specimen by MARC with probe detection (test code = 46433-6) Whether patient is employed in a Unknown healthcare setting (test code = 36878-0) Whether the patient has symptoms Unknown related to condition of interest (test code = 16378-8) Whether the patient was Unknown hospitalized for condition of interest (test code = 56349-4) Whether the patient was admitted Unknown to intensive care unit (ICU) for condition of interest (test code = 20036-5) Whether patient resides in a Unknown congregate care setting (test code = 75316-9) status (test code = Unknown 96688-2) Date and time of symptom onset Unknown (test code = 37317-0) TERESA GARCIASARS-CoV-2 (COVID-19) RNA [Presence] in Respiratory specimen by MARC with probe [id number] 23:21:26 Test Item Value Reference Range Interpretation Comments SARS-CoV-2 (COVID-19) RNA Not detected [Presence] in Respiratory specimen by MARC with probe detection (test code = 10485-4) Whether patient is employed in a Unknown healthcare setting (test code = 31986-9) Whether the patient has symptoms Unknown related to condition of interest (test code = 03253-5) Whether the patient was Unknown hospitalized for condition of interest (test code = 38200-3) Whether the patient was admitted Unknown to intensive care unit (ICU) for condition of interest (test code = 54115-6) Whether patient resides in a Unknown congregate care setting (test code = 14247-9) status (test code = Unknown 23169-7) Date and time of symptom onset Unknown (test code = 38588-5) TERESA GARCIASARS-CoV-2 (COVID-19) RNA [Presence] in Respiratory specimen by MARC with probe [id number] 18:46:50 Test Item Value Reference Range Interpretation Comments SARS-CoV-2 (COVID-19) RNA Not detected [Presence] in Respiratory specimen by MARC with probe detection (test code = 65055-1) Whether patient is employed in a Unknown healthcare setting (test code = 48795-8) Whether the patient has symptoms Unknown related to condition of interest (test code = 29363-5) Whether the patient was Unknown hospitalized for condition of interest (test code = 90502-0) Whether the patient was admitted Unknown to intensive care unit (ICU) for condition of interest (test code = 87114-2) Whether patient resides in a Unknown congregate care setting (test code = 75038-9) status (test code = Unknown 89392-0) Date and time of symptom onset Unknown (test code = 66416-3) TERESA GARCIASARS-CoV-2 (COVID-19) RNA [Presence] in Respiratory specimen by MARC with probe [id number] 22:07:05 Test Item Value Reference Range Interpretation Comments SARS-CoV-2 (COVID-19) RNA Not detected [Presence] in Respiratory specimen by MARC with probe detection (test code = 54284-5) Whether patient is employed in a Unknown healthcare setting (test code = 77465-3) Whether the patient has symptoms Unknown related to condition of interest (test code = 62180-7) Whether the patient was Unknown hospitalized for condition of interest (test code = 02805-0) Whether the patient was admitted Unknown to intensive care unit (ICU) for condition of interest (test code = 75384-5) Whether patient resides in a Unknown congregate care setting (test code = 45301-1) status (test code = Unknown 53739-8) Date and time of symptom onset Unknown (test code = 89483-4) TERESA GARCIASARS-CoV-2 (COVID-19) RNA [Presence] in Respiratory specimen by MARC with probe [id number] 16:57:41 Test Item Value Reference Range Interpretation Comments SARS-CoV-2 (COVID-19) RNA Not detected [Presence] in Respiratory specimen by MARC with probe detection (test code = 36851-2) Whether patient is employed in a Unknown healthcare setting (test code = 54032-6) Whether the patient has symptoms Unknown related to condition of interest (test code = 56414-4) Whether the patient was Unknown hospitalized for condition of interest (test code = 41968-4) Whether the patient was admitted Unknown to intensive care unit (ICU) for condition of interest (test code = 30220-2) Whether patient resides in a Unknown congregate care setting (test code = 85994-8) status (test code = Unknown 23134-4) Date and time of symptom onset Unknown (test code = 11154-1) TERESA GARCIASARS-CoV-2 (COVID-19) RNA [Presence] in Respiratory specimen by MARC with probe [id number] 22:16:41 Test Item Value Reference Range Interpretation Comments SARS-CoV-2 (COVID-19) RNA Not detected Not-Detected [Presence] in Respiratory specimen by MARC with probe detection (test code = 08476-2) Whether patient is employed in a healthcare setting (test code = 00913-5) Whether the patient has symptoms related to condition of interest (test code = 07442-0) Patient was hospitalized because of this condition (test code = 05087-9) Whether the patient was admitted to intensive care unit (ICU) for condition of interest (test code = 44711-9) Whether patient resides in a congregate care setting (test code = 58103-4) TERESA GARCIASARS-CoV-2 (COVID-19) RNA [Presence] in Respiratory specimen by MARC with probe xpkyvugyw5003-44-80 11:41:41 Test Item Value Reference Range Interpretation Comments SARS-CoV-2 (COVID-19) RNA Not detected Not-Detected [Presence] in Respiratory specimen by MARC with probe detection (test code = 38842-2) Whether patient is employed in a healthcare setting (test code = 58522-3) Whether the patient has symptoms related to condition of interest (test code = 12354-8) Patient was hospitalized because of this condition (test code = 94354-2) Whether the patient was admitted to intensive care unit (ICU) for condition of interest (test code = 13763-4) Whether patient resides in a congregate care setting (test code = 17650-7) TERESA GARCIASARS-CoV-2 (COVID-19) RNA [Presence] in Respiratory specimen by MARC with probe erfoqrcxe1598-55-52 13:59:05 Test Item Value Reference Range Interpretation Comments SARS-CoV-2 (COVID-19) RNA Not detected Not-Detected [Presence] in Respiratory specimen by MARC with probe detection (test code = 00639-8) Whether patient is employed in a healthcare setting (test code = 20610-6) Whether the patient has symptoms related to condition of interest (test code = 13906-5) Patient was hospitalized because of this condition (test code = 41307-9) Whether the patient was admitted to intensive care unit (ICU) for condition of interest (test code = 88609-2) Whether patient resides in a congregate care setting (test code = 45935-4) TERESA GARCIASARS-CoV-2 (COVID-19) RNA [Presence] in Respiratory specimen by MARC with probe atpqmuglh2459-17-24 14:53:01 Test Item Value Reference Range Interpretation Comments SARS-CoV-2 (COVID-19) RNA Not detected Not-Detected [Presence] in Respiratory specimen by MARC with probe detection (test code = 66218-2) Whether patient is employed in a healthcare setting (test code = 88104-9) Whether the patient has symptoms related to condition of interest (test code = 25054-0) Patient was hospitalized because of this condition (test code = 95617-1) Whether the patient was admitted to intensive care unit (ICU) for condition of interest (test code = 71236-5) Whether patient resides in a congregate care setting (test code = 04526-2) TERESA GARCIASARS-CoV-2 (COVID-19) RNA [Presence] in Respiratory specimen by MARC with probe eqiazjkve0097-59-99 21:09:55 Test Item Value Reference Range Interpretation Comments SARS-CoV-2 (COVID-19) RNA Not detected Not-Detected [Presence] in Respiratory specimen by MARC with probe detection (test code = 59635-1) Whether patient is employed in a healthcare setting (test code = 49303-8) Whether the patient has symptoms related to condition of interest (test code = 53506-9) Patient was hospitalized because of this condition (test code = 12000-3) Whether the patient was admitted to intensive care unit (ICU) for condition of interest (test code = 90850-1) Whether patient resides in a congregate care setting (test code = 16964-7) TERESA GARCIASARS-CoV-2 (COVID-19) RNA [Presence] in Respiratory specimen by MARC with probe molqwskqi9960-42-55 04:07:49 Test Item Value Reference Range Interpretation Comments SARS-CoV-2 (COVID-19) RNA Not detected Not-Detected [Presence] in Respiratory specimen by MARC with probe detection (test code = 94136-0) Whether patient is employed in a healthcare setting (test code = 71551-8) Whether the patient has symptoms related to condition of interest (test code = 73009-6) Patient was hospitalized because of this condition (test code = 39748-2) Whether the patient was admitted to intensive care unit (ICU) for condition of interest (test code = 78319-9) Whether patient resides in a congregate care setting (test code = 39969-5) TERESA GARCIASARS-CoV-2 (COVID-19) RNA [Presence] in Respiratory specimen by MARC with probe mudwmqiws9528-47-31 15:52:14 Test Item Value Reference Range Interpretation Comments SARS-CoV-2 (COVID-19) RNA Not detected Not-Detected [Presence] in Respiratory specimen by MARC with probe detection (test code = 73030-7) Whether patient is employed in a healthcare setting (test code = 63392-4) Whether the patient has symptoms related to condition of interest (test code = 47578-8) Patient was hospitalized because of this condition (test code = 91960-2) Whether the patient was admitted to intensive care unit (ICU) for condition of interest (test code = 31443-7) Whether patient resides in a congregate care setting (test code = 71917-5) TERESA GARCIASARS-CoV-2 (COVID-19) RNA [Presence] in Respiratory specimen by MARC with probe nacdklbgl8898-31-82 09:56:56 Test Item Value Reference Range Interpretation Comments SARS-CoV-2 (COVID-19) RNA Not detected Not-Detected [Presence] in Respiratory specimen by MARC with probe detection (test code = 90995-0) Whether patient is employed in a healthcare setting (test code = 88652-4) Whether the patient has symptoms related to condition of interest (test code = 02218-1) Patient was hospitalized because of this condition (test code = 54632-9) Whether the patient was admitted to intensive care unit (ICU) for condition of interest (test code = 51233-0) Whether patient resides in a congregate care setting (test code = 72353-1) [place] GARCIASARS-CoV-2 (COVID-19) RNA [Presence] in Respiratory specimen by MARC with probe orjxjhhfl6496-41-28 04:03:50 Test Item Value Reference Range Interpretation Comments SARS-CoV-2 (COVID-19) RNA Not detected Not-Detected [Presence] in Respiratory specimen by MARC with probe detection (test code = 56773-3) Whether patient is employed in a healthcare setting (test code = 18522-3) Whether the patient has symptoms related to condition of interest (test code = 90847-8) Patient was hospitalized because of this condition (test code = 55468-2) Whether the patient was admitted to intensive care unit (ICU) for condition of interest (test code = 95971-6) Whether patient resides in a congregate care setting (test code = 59198-2) [place] [facility] GARCIATransthoracic Echocardiogram Complete, (w Contrast, Strain and 3D if needed)2020-08-30 21:00:00 Echocardiography Report [address] [place] [address].Name: SRIKANTH TOMAS TPat.ID: [id number] .Date: 08/30/2020 Refer.MD: DOUG ALONSO MD, SEGUNDO CANALES MDExam Time: 9:52:00 AM Study Type:Routine Echo Height: 70in Weight: 213lb BSA: 2.15 m2 Age: 12 1950,70Y Sex: MALE BP: 90/55 HR: 53 bpm Sonogrphr: YOMI Santos Pat. Stat.:Inpatient Room: D1065 Study Status:Final Echo Event ID:[id number] Order ID: [id number] Reason for Study:pre liver transplantProcedures: 2D Echo, Colorflow Doppler, Portable, Intravenous LumasonContrast, Intravenous Saline ContrastRace: C SUMMARY: LV EF is normal.Estimated EF is 65-69%RV systolic function is normal.Delayed contrast appears in the left atrium after 5 cardiac cyclesconsistent with transpulmonary shunting. The shunt is significant. FINDINGS: LV: LV size is normal. LV EF [...] a mean RAP of 5 mmHg. MEASUREMENTS: ----- 2DParasternal Long Clarinda Ao An 2 cm LVPWd 0.86 cm [...] ET 350 msec AV AC 100 msec (83- 118) AV AC/ET 0.29 Aortic Valve AV DI 0.66 LVOT For Flow LVOT TVI 37 cm LVOTpkPG 10 mmHg LVOT SV 116 ml LVOTmnPG 5.1 mmHg LVOTpkVel 158 cm/s LVOT SVi 54 ml/m2 LVOT CI 2.9 l/m/m2LVOT CO 6.3 l/min LVOT Stroke Vol & Cardiac Out HR 54 bpm Signed 08/30/2020 04:00 PMAndrew Irizarry M.D.Interface, Radiology Results In - 08/30/2020 4:00 PM CDT Echocardiography Report [address] [place] [address] Pat.Name: SRIKANTH TOMAS Pat.ID: [id number] .Date: 08/30/2020 Refer.MD: DOUG ALONSO MD, SEGUNDO CANALES MDExestelle Time: 9:52:00 AM Study Type:Routine Echo Height: 70in Weight: 213lb BSA: 2.15 m2 Age: 12 1950,70Y Sex: MALE BP: 90/55 HR: 53 bpm Sonogrphr: YOMI Santos Pat. Stat. :Inpatient Room: D1065 Study Status:Final Echo Event ID:[id number] Order ID: [id number] Reason for Study:pre liver transplantProcedures: 2D Echo, Colorflow Doppler, Portable, Intravenous LumasonContrast, Intravenous Saline ContrastRace: C SUMMARY: LV EF is normal.Estimated EF is 65-69%RV systolic function is normal.Delayed contrastappears in the left atrium after 5 cardiac [...] Mild mitral annular calcification.PV: No structural PV abnormalitiesnoted.TV: No structural TV abnormalities noted.Other: Estimated PA systolic pressure is 32 mmHg, assuming a mean RAP of 5 mmHg. MEASUREMENTS: 2DParasternal Long Clarinda Ao An 2 cm LVPWd 0.86 cm Ao Rtd 3 cm Index 1.4 cm/m2 LA Ds 4.3 cm IVSd 1.1 cm RWT 0.32 LVIDd 5.4 cm Index 2.5 cm/m2 LV Mass 201 g (122-174) LVIDs 2.4 cm LVM Index 93g/m2 LV%fs 56 % LA Sng Plane LA [...] ET 350 msec AV AC 100 msec (83- 118) AV AC/ET 0.29 Aortic Valve AV DI 0.66 LVOT For Flow LVOT TVI 37 cm LVOTpkPG 10 mmHg LVOT SV 116 ml LVOTmnPG 5.1 mmHg LVOTpkVel 158 cm/s LVOT SVi 54 ml/m2 LVOT CI 2.9 l/m/m2 LVOT CO 6.3 l/min LVOT Stroke Vol & Cardiac Out HR 54 bpm Signed 08/30/2020 04:00 Flavio Irizarry M.D.[facility] HospitalPrepar RBC, 2 Gpftk9212-87-37 20:43:00 Test Item Value Reference Range Interpretation Comments Product name (test code Red Blood Cells -1, = 25) Leukored Unit number (test code = [id number]) Product code (test code [id number] = 3092) Dispense status (test Transfused code = 24) Blood expiration date (test code = 302) Blood type code (test code = 308) Blood type (test code = A POSITIVE 1314) Compatibility (test code Compatible = 6400) [facility] Abdominal Aeougwy8397-40-33 05:02:33EXAMINATION: US ABDOMINAL DOPPLER CLINICAL HISTORY: GI [...] heterogeneous echotexture. There is small ascites and cholelithiasis.[facility] HospitalECG 12 aany3706-56-09 21:20:43 Test Item Value Reference Range Interpretation Comments Ventricular rate (test code = 253) Atrial rate (test code = 255) TX interval (test code = 266) QRSD interval (test code = 260) QT interval (test code = 264) QTC interval (test code = 265) P axis 1 (test code = 267) QRS axis 1 (test code = 268) T wave axis (test code = 270) EKG impression (test code = 273) [facility] HospitalUrine guwgiqh0396-18-54 09:11:22 Test Item Value Reference Range Interpretation Comments Urine culture (test code = SEE COMMENT 2681691) [facility] HospitalType and dyugup9921-69-90 23:06:00 Test Item Value Reference Range Interpretation Comments ABO grouping (test code = 883-9) A Rh type (test code = 93763-3) POS Antibody screen (gel) (test code = NEG 890-4) [facility] HospitalCRITICAL [id number] 22:17:31PatelRhoda MD 09/16/2020 10:55 AMCritical CarePerformed by: Rhoda Calero, MDAuthorized by: Rhoda Calero MD Critical care [...] separately and not included in critical care time.ECG ED Preliminary Interpretation - Not an Seogw5767-08-40 22:17:31PRhoda arzate MD 09/16/2020 10:55 AMECG ED Preliminary Interpretation - Not an OrderPerformed by: Rhoda Calero MDAuthorized by: Rhoda Calero MD ECG reviewed by ED Physician in the absence of a senior security engineer: yes Rate: ECG rate: 72 ECG rate assessment: normal Rhythm: Rhythm: sinus rhythm ST segments: ST segments: NormalT waves: T waves: non-specific Comments: No S TEMIParathyroid jujoiov5480-11-77 19:22:00 Test Item Value Reference Range Interpretation Comments PTH (test code = 2731-8) 51 pg/mL 14-64 JUAN (test code = JUAN) RAC (test code = RAC) [facility] HospitalABN TEST [id number] 19:22:00 Test Item Value Reference Range Interpretation Comments ABN test refused (test code = 8251-1) JUAN (test code = JUAN) RAC (test code = RAC) [facility] Abdominal Paracentesis Tvlyqzk8617-04-55 23:01:27 ProcedureUltrasound-guided paracentesis. Clinical IndicationAscites. AnesthesiaLidocaine 1%. [...] anesthetic. Using real-time ultrasound guidance, a 5 Kuwaiti catheter was advanced successfully into the peritoneal cavity with return of cloudy yellow ascites. A total ip1043 mL of fluid was removed. The catheter was removed and hemostasis was achieved with manual compression. Ultrasound imaging over the abdomen following completion of the paracentesis demonstrated no significant residual ascites. The patient tolerated the procedure well. ComplicationsNone. Impression: Successful ultrasound-guided paracentesis with removal of 3000 ml of cloudy yellow ascites. [facility]-[id number] Interface, Radiology Results - 08/09/2020 6:04 PM [...] anesthetic. Using real-time ultrasound guidance, a 5 Kuwaiti catheter was advanced successfully into the peritoneal [...] yellow ascites. [facility]-[id number] [facility] reodjlj6957-36-34 02:25:54 Test Item Value Reference Range Interpretation Comments POC glucose (test code = 08404-2) 174 mg/dL 65-99 H Lab Interpretation (test code = Abnormal 41121-6) [facility] Abdominal Rlsegxo5080-53-59 23:07:12EXAMINATION: US ABDOMINAL LIMITED HISTORY: 70 years old Male. Abdominal swelling ascites suspected, see if enough fluid for paracentesis. COMPARISON: None available. IMPRESSION: Four-quadrant sonographic survey for ascites is performed. There is a small to moderate volume of ascites, greatest in the right upper and right lower quadrants. [facility]-[id number] Interface, Radiology Results - 08/06/2020 6:10 PM CDT EXAMINATION: US ABDOMINAL LIMITED HISTORY: 70 years old Male. Abdominal swelling ascites suspected, see if enough fluid for paracentesis.COMPARISON: None available.IMPRESSION: Four-quadrant sonographic survey for ascites is pe rformed. There is a small to moderate volume of ascites, greatest in the right upper and right lowerquadrants.[id number] HospitalDirect Katie' (MIRZA)2020-08-06 12:24:00 Test Item Value Reference Range Interpretation Comments Tubp-UxY-L7q Polyspecific (test code = NEG 2585) [facility] HospitalXR Chest 1 Vw Wwnzmuhn3157-71-72 01:55:54EXAMINATION: XR CHEST 1 VW PORTABLE CLINICAL HISTORY: fever COMPARISON: 05/15/2020 IMPRESSION: Heart a nd mediastinum stable. Bones are osteopenic. Low lung volumes, with mild perihilar interstitial prominence and no definite consolidation noted. [facility] [id number] Interface, Radiology Results - 08/01/2020 8:59 PM CDT EXAMINATION: XR CHEST 1 VW PORTABLECLINICAL HISTORY: feverCOMPARISON: 05/15/2020IMPRESSION:Heart and mediastinum stable.Bones are osteopenic.Low lung volumes, with mild perihilar interstitial prominence and no definite consolidation noted. [facility]-[id number] HospitalBLOOD TRYBQIA4281-87-94 13:28:00 Test Item Value Reference Range Interpretation Comments CULTURE (BEAKER) (test No growth in 5 days code = 1095) HEPATIC FUNCTION [id number] 10:13:00 Test Item Value Reference Range Interpretation [...] (test code = 26 U/L 6-55 347) Preventative Maintenance Technician ID - DBSpecimen slightly ictericBASIC METABOLIC ZZEAL3178-75-01 05:31:00 Test Item Value Reference Range Interpretation [...] S NOT APPLICABLE FOR DIALYSIS PATIEN TS. Preventative Maintenance Technician ID - DBSpecimen slightly ictericCBC W/PLT COUNT [...] (BEAKER) (test code = 2801) COMPREHENSIVE METABOLIC HEWOV0304-50-86 00:14:00 Test Item Value Reference Range Interpretation [...] S NOT APPLICABLE FOR DIALYSIS PATIEN TS. Preventative Maintenance Technician ID - DBSpecimen moderately dnbftpnBHMZYRJSD3321-12-85 00:10:00 Test Item Value Reference Range Interpretation Comments MAGNESIUM (BEAKER) (test code = 1.9 mg/dL 1.6-2.6 627) Preventative Maintenance Technician ID - DFKLHIFRI3555-92-64 00:03:00 Test Item Value Reference Range Interpretation Comments AMMONIA (BEAKER) (test code = 348) 60 mol/L 18-72 Preventative Maintenance Technician ID - DJLVBS9409-99-24 23:58:00 Test Item Value Reference Range Interpretation Comments PARTIAL THROMBOPLASTIN TIME 36.7 seconds 22.5-36.0 H (BEAKER) (test code = 760) PROTHROMBIN TIME/[id number] 23:57:00 Test Item Value Reference Range Interpretation Comments PROTIME (BEAKER) 16.8 seconds 11.9-14.2 H (test code = 759) INR (BEAKER) (test 1.42 See_Comment [Automat ed message] code = 370) The system Cloze generated this result transmitted ref erence range: <=5.90. The reference range was not used to int erpret this result as normal/abnormal . Effective 07/19/2018: PT Reference Range ChangeNew: 11.9-14.2 Previous: 11.7- 14.7RECOMMENDED COUMADIN/WARFARIN INR THERAPY RANGESSTANDARD DOSE: 2.0-3.0 Includes: PROPHYLAXIS for venous thrombosis, systemic embolization; TREATMENT for venous thrombosis and/or pulmonary embolus.HIGH RISK: Target INR is 2.5-3.5 for patients wiht mechanical heart valves.POCT-GLUCOSE [id number] 21:39:00 Test Item Value Reference Range Interpretation Comments POC-GLUCOSE METER 131 mg/dL 70-110 H : TESTED Cristopher Romo [facility] [address] (MILDRED) (test code = [place], 1538) [address]: Preventative Maintenance Technician/Techni domingo ID = [id number] for Darrius Harmon C1Q class 1 & 2 fwhwdikz9391-84-28 21:15:13 Test Item Value Reference Range Interpretation Comments Interpretation (test code Unable to analyze = 2763052) due to high background Case number (test code = [id number]) C1Q class 1 & 2 antibody See link below for (test code = 0227068) PDF Lab Report [facility] HospitalLow resolution full typing by [id number] 20:49:43 Test Item Value Reference Range Interpretation Comments Interpretation (test code = 4579690) Case number (test code = [id number]) Low resolution full typing See link below for by SSO (test code = 1359) PDF Lab Report [facility] HospitalIR Venous Svpxszhmsbmw5765-43-44 20:29:30Performing RadiologistStevie Avina Anesthesia TypeModerate sedation was administered by the procedure nurse and monitored by the procedure physician for a total gokl-kb-yois sedation time of 118 minutes. Lidocaine 1% [...] access was then upsized to a 10 Kuwaiti vascular sheath. Over a wire, the vascular [...] removed over a wire. Next, a 5 Kuwaiti glide catheter was placed proximally within the varix while a 2.8 Kuwaiti renegade high flow microcatheter was utilized access the dilated perigastric/gastric veins. Contrast injection confirmed access to the abnormal veins as seen on series 11. Multiple 0.035 inch [place] detachable coils were placed in the proximal [...] stasis of dilated perigastric varices as described above.[facility]-[id number] Interface, Radiology Results Incoming - 05/17/2020 3:32 PM CDT Performing VielkaErlanger Western Carolina Hospitallaina Avina AnesthesiaTypeModerate sedation was administered by the procedure nurse and monitored by the procedure physician for a total kqna-zw-llor sedation time of 118 minutes. Lidocaine 1% [...] fluoroscopy. Using a combination of a 5 Kuwaiti C2 catheter and a 0.035 inch Glidewire, [...] access was then upsized to a 10 Kuwaiti vascular sheath. Over a wire, the vascular [...] removed over a wire. Next, a 5 Kuwaiti glide catheter was placed proximally within the varix while a 2.8 Kuwaiti renegade high flow microcatheter was utilized access [...] stasis of dilated perigastric varices as described above.[facility]-[id number] HospitalSpirometry, diffusion, lung volumes, [facility]/WRLT0603-33-12 19:33:19 Test Item Value Reference Range Interpretation [...] (test code = See_Comment [Autom ated message] 5451) The system Cloze generated this result transmitted ref erence range: 29.11 - 136.03 cmH2O. The refe rence range was not u sed to interpret this result as normal/abnor mal. MEP Pre (test code = See_Comment [Autom ated message] 5458) The system Cloze generated this result transmitted ref erence range: 83.46 - 180.80 cmH2O. The refe rence range was not u sed to interpret this result as normal/abnor mal. DLCO Pre (test code See_Comment [Automa almita message] = 5423) The system Cloze generated this result transmitted ref erence range: 18.41 - 34.34 ml/(min*mmHg). The reference range was not used to int erpret this result as normal/abnormal . DL/VA Pre (test code See_Comment [Autom ated message] = 5437) The system Cloze generated this result transmitted ref erence range: 2.77 - 5 .17 ml/(min*mmHg*L) . The reference range was not used to int erpret this result as normal/abnormal . VA SB Pre (test code 4.3 L 5.46-8.19 = 5444) DLCOc Pre (test code See_Comment [Autom ated message] = 5430) The system Cloze generated this result transmitted ref erence range: 18.41 - 34.34 ml/(min*mmHg). The reference range was not used to int erpret this result as normal/abnormal . KCOc SB Pre (test See_Comment [Automate d message] code = 5535) The system Cloze generated this result transmitted ref erence range: 2.77 - 5 .17 ml/(min*mmHg*L) . The reference range was not used to int erpret this result as normal/abnormal . Hb Pre (test code = g(Hb)/dL 5540) R0.5IN Pre (test See_Comment [Automated message] code = 5514) The system Cloze generated this result transmitted ref erence range: [...] See_Comment [Autom ated message] 5507) The system Cloze generated this result transmitted ref erence range: 3.06 - 3 .06 cmH2O*s/L. The reference range was not used to int erpret this result as normal/abnormal . sGaw Predicted (test See_Comment [Autom ated message] code = 5528) The system Cloze generated this result transmitted ref erence range: [...] 50.9 % Predicted (test code = 5587) [facility] antigen zcoyh1311-00-04 00:23:28 Test Item Value Reference Range Interpretation Comments SAB serum ID (test code [id number] = 5866) SAB serum collection D&T 05/12/2020 04:11 PM (test code = 5867) SAB class I antibody Negative assignment (test code = 5870) SAB cPRA class I (test code = 5868) SAB class II antibody Negative assignment (test code = 5871) SAB cPRA class II (test code = 5869) Case number (test code = [id number]) Single antigen beads See link below for (test code = 4604) PDF Lab Report [facility] HospitalXR Chest 2 [id number] 18:32:44Examination: XR CHEST 2 VW Clinical History: [...] vascularity.1D2RAD_PS04[facility] Cont[facility], Pelvis W Gbmmavns2464-28-14 17:57:35 EXAMINATION: CT ABDOMEN WWO CONTRAST PELVIS [...] scan is recommended for surveillance.6.Additional findings as above.1D2RAD_PS08[facility] pcbivnvmjw2950-69-03 21:13:41 Test Item Value Reference Range Interpretation Comments HLA transplant evaluation See link below for (test code = 94954-8) PDF Lab Report Case number (test code = [id number]) [facility] carotid wqmycg6185-36-83 20:42:00 [facility]ascular Ultrasound Laboratory Carotid Artery Duplex Report [address] [place] [address] For software quality test engineer purposes, the categorization of the degree of the stenosis of this exam is based on criteria described in the IAC carotid stenosis grading white paper( www.intersocietal.org/Vascular) and Yaima Lundberg., Wu Bhagat., et al. Carotid artery stenosis: ortiz-scale and Doppler US diagnosis--Society of Radiologists in Ultrasound Consensus Conference. Radiology. 2003 Nov; 229(2):340-6. Pat.Name: SRIKANTH TOMAS Pat.ID: [id number] .Date: 05/12/2020 Refer.MD: SAMM WEBB MDExam Time: 2:21:00 PM Study Type:Carotid Height: 70in Weight: 224lb BSA: 2.19 m2 Age: [birth year]70Y Sex: MALE Sonogrphr: Dumont Vi, RVT Pat. Stat.:Inpatient Room: [address] Tape Vol: , [facility] -4: [id number] Echo Event ID:[id number] Order ID: [id number] Reason for Study:Pre-operative forl liver transplant. History ofcirrhosis of liver.Procedures: Colorflow, Grayscale/2D, Pulsed wave DopplerRace: D SUMMARY: PHYSICAL ASSESSMENTBlood Pulses Carotid Pressure Carotid Temporal BruitRight IV + + 0Left 113/59 + + 0CAROTID ARTERY SCANRIGHT: There is smooth intimal lining seen in the common carotidartery. There is hard and calcifiedplaque seen in the bulb extendinginto proximal internal and external carotid artery. Colorflow andDoppler signals are present. There is antegrade flow seen in thevertebral artery. LEFT: There is smoothintimal lining seen in the common carotidartery. There is hard and calcified plaque seen in the bulbextendinginto proximal internal carotid artery. The external carotid artery isclear. Colorflow and Do ppler signals are present. There is antegradeflow seen in the vertebral artery. Elevated velocity isseen at thesubclavian artery. PRELIMINARY FINDINGS1. <50% stenosis of bulb and internal carotid artery, bilaterally.2. <50% stenosis of right external carotid artery.3. Antegrade flow seen in thevertebral artery, bilaterally. 4. Elevated velocity is seen at the left subclavian artery. PHYSICIANINTERPRETATION Bilateral carotid duplex examination demonstrated atheroscleroticplaques in the bulbs. Less than 50% stenosis in the bulb and internal carotid artery,bilaterally.Both vertebral arteries are antegrade.>50% left subclavian artery stenosis. FINDINGS:--- Carotid Findings: Right Left Verteb.Flw Antegrade Antegrade Subclavian Triphasic Triphasic MEASUREMENTS: -------- DOPPLERRight CCA Dist CCA Dist PSV 90.1 [...] ICA Prox ICA Prox PSV 108 cm/s ICAProx EDV 31.8 cm/sRight Vertebral Vertebral PSV 58.9 [...] cm/sLeft ICA Mid ICA Mid PSV 110 cm/Archana Mid EDV 34.7 cm/sLeft ICA Prox ICA [...] PM CDT Vascular Ultrasound Laboratory Carotid Artery Duple x Report [id number] [place] [address] For software quality test engineer purposes, the categorization of the degree of the stenosis of this exam is based on criteria described in the IAC carotidstenosis grading white paper( www.intersocietal.org/Vascular) and Yaima Lundberg., Wu Bhagat., et al. Carotid artery stenosis: ortiz-scale and Doppler US diagnosis--Society of Radiologists in Ultrasound Consensus Conference. Radiology. 2003 Nov; 229(2):340-6. Pat.Name: SRIKANTH TOMAS Pat.ID: [id number] .Date: 05/12/2020 Refer.MD: SAMM WEBB MDExam Time: 2:21:00 PM Study Type:Carotid Height: 70in Weight: 224lb BSA: 2.19 m2 Age: 12 1950,70Y Sex: MALE Sonogrphr: Tim Camarillo RVT Pat. Stat.:Inpatient Room: [address] Vol: , CPT - 4: 90696 Echo Event ID:[id number] Order ID: [id number] Reason for Study:Pre-operative forl liver transplant. History ofcirrhosis of liver.Procedures: Colorflow, Grayscale/2D, Pulsed wave DopplerRace: D SUMMARY:--------- PHYSICAL ASSESSMENT Blood Pulses Carotid Pressure Carotid [...] velocity is seen at thesubclavian artery. PRELIMINARY FINDINGS1.<50% stenosis of bulb and internal carotid artery, [...] are antegrade.>50% left subclavian artery stenosis. FINDINGS: -Carotid Findings: Right Left Verteb.Flw Antegrade Antegrade Subclavian Triphasic Triphasic ------MEASUREMENTS: DOPPLERRight CCA Dist CCA Dist PSV 90.1 cm/sCCA Dist EDV 26.7 cm/sRight CCA Mid CCA Mid PSV 117 cm/s CCA Mid EDV 22 cm/sRight CCA Prox CCA ProxPSV 141 cm/s CCA Prox EDV 20.9 cm/sRight [...] 1.08 Signed 05/12/2020 03:42 PMEsvin Manuel MD, [facility] Chest Wo [id number] 19:14:10 Addendum by Ruddy Person MD on [...] callbacknumber was provided to discuss these findings. [facility]-WPHYDPKHm Interface, Radiology Results Incoming - 05/12/2020 2:17 [...] number was provided to discuss these findings.[facility] [id number] 00:32:36EXAMINATION: US HEPATIC HISTORY: 70 years old [...] veins. IMPRESSION: 1. Nodular, cirrhotic liver.2. Cholelithiasis. [id number] Interface, Radiology Results 05/08/2020 7:35 PM CDT EXAMINATION: US HEPATIC [...] portal veins. IMPRESSION: 1. Nodular, cirrhotic liver.2.Cholelithiasis.[id number] [facility] [id number] 15:25:18EXAMINATION: XR PANOREX CLINICAL HISTORY: missing teeth rule out infection in setting of hepatic encephalopathy COMPARISON: None IMPRESSION: A single Panorex is provided. There are multiple missing teeth and multiple dental restorations. No worrisome periapical lucency is identified. [facility]-[id number] Interface, Radiology Results 04/13/2020 9:28 AM CST EXAMINATION: XR PANOREXCLINICAL HISTORY: missing teeth rule out infection in setting of hepatic encephalopathyCOMPARISON: NoneIMPRESSION:A single Panorex is provided.There are multiple missing teeth and multiple dental restorations.No worrisome periapical lucency is identified.[facility]-[id number] [facility] Abdomen 1 Vw [id number] 20:24:12EXAM: XR ABDOMEN 1 VW PORTABLE CLINICAL: Nausea vomiting, rule out ileus or constipation COMPARISON:None. IMPRESSION: 1.Nonspecific bowel gas pattern without radiographic evidence of obstruction.2.Mild degenerative changes in the spine. [facility]-[id number] Interface, Radiology Results Incoming 04/10/2020 2:27 PM CST EXAM: XR ABDOMEN 1 VW PORTABLECLINICAL: Nausea vomiting, rule out ileus or constipationCOMPARISON: None.IMPRESSION: 1.Nonspecific bowel gas pattern without radiographic evidence of obstruction.2.Mild degenerative changes in the spine.[facility]-[id number] HospitalTransthoracic Echocardiogram Complete, (w Contrast, Strain and 3D if needed)2020-04-03 21:24:00 Echocardiography Report [id number]Name: SRIKANTH TOMAS [facility].ID: [id number] .Date: 04/02/2020 Refer.MD: NURIA DENNIS MD Exam Time: 9:19:00 PM Study Type:Routine Echo Height: 70in Weight: 320lb BSA: 2.55 m2 Age: 12 1950,70Y Sex: MALE BP: 123/56 HR: 81 bpm Sonogrphr: YOMI Montoya /Mikala Keller MDPat. Stat.:Inpatient Room: [place] [address] Study Status:Final Echo Event ID:[id number] Order ID: [id number] Reason for Study:fluid overload rule out cardiac etiology, cardiacmurmurProcedures: 2D Echo, Colorflow Doppler, Strain, Portable, IntravenousLumason ContrastRace: D SUMMARY: LV sizeis normal.Biplane LV EF is 68%. FINDINGS: LV: LV size is normal. Biplane LV ejection fraction= 68% LV EF is normal. Overall wall motion is normal.RV: RV size is normal. RV free wall strain is normal at -27.8%. RV systolic function is normal.LA: LA volume is moderately enlarged. LA reservior strain is normal at 43.9%.RA: RA size isnormal.AO: Aortic root diameter is normal.YOVANY: No pericardial effusion.AV: Mild thickening and calcification of AV leaflets.MV: Mild mitral annular calcification.PV: Pulmonic valve not well seen.TV: No structural TV abnormalities noted.Other: Insufficient TR jet to estimate PA systolic pressure.----- MEASUREMENTS: 2DParasternal Long Clarinda Ao An 2 cm LVPWd 1 cm Ao Rtd 3.3 cm Index 1.3 cm/m2 LA Ds 4.5 cm IVSd 1 cm RWT 0.4 LVIDd 5.5 cmIndex 2.1 cm/m2 LV Mass 211.3 g (122- 174) LVIDs 3.2 cm LVM Index 82.9 g/m2 LV%fs 41.6 % LVOT 2 cm LVEF Biplane LVEDV 146 ml (65-193) Index 57.2 [...] msec (83-118)Aortic Valve AV DI 0.9 AV Area2.8 cm2 (3-5)LVOT For Flow LVOT TVI 32.5 [...] different from the original. Echocardiography Report [address] [place] [address] Pat.Name: SRIKANTH TOMAS Pat.ID: [id number] .Date: 04/02/2020 Refer.MD: NURIA DENNIS MD Exam Time: 9:19:00 PM Study Type:Routine Echo Height: 70in Weight: 320lb BSA: 2.55 m2 Age: 12 1950,70Y Sex: MALE BP: 123/56 HR: 81 bpm Sonogrphr: YOMI Montoya /Luz Wells. Stat.:[facility] [place] [address] Study Status:Final Echo Event ID:[id number] Order ID: [id number] Reason for Study:fluid overload rule out cardiac [...] estimate PA systolic pressure. MEASUREMENTS: 2DParasternal Long Clarinda Ao An 2 cm LVPWd 1 cm Ao Rtd 3.3 cm Index 1.3 cm/m2 LA Ds 4.5 cm IVSd 1 cm RWT 0.4 LVIDd 5.5 cm Index 2.1 cm/m2 LV Mass 211.3 g (122-174) LVIDs 3.2 cm LVM Index82.9 g/m2 LV%fs 41.6 % LVOT 2 cm [...] cm/s AV TVI 36.5 cm AV pkPG 14.2mmHg AVpkAcRt 6393.3 cm/s2 AV Mean G 10.5 mmHg AV DeRt 791.4 cm/s2 AV ET 238 msec AV AC 57 msec (83-118)Aortic Valve AV DI 0.9 AV Area 2.8 cm2 (3-5)LVOT For Flow LVOT TVI 32.5 cm LVOTpkPG 10.2 mmHg LVOTpkVel 159.6 cm/s LVOTmnPG 6.3 mmHgLVOT LVOT SV 103.5 ml LVOT CO 8.4 l/min SVi 40.6 ml/m2 LVOT CI 3.3l/m/m2LVOT Stroke Vol & Cardiac Out HR 81 bpm Mitral Valve MV pkE 117.5 cm/s (60-130) MV pkA 105.2 cm/s Signed 04/03/2020 03:24 Helio Ron M.D.[facility] Abdomen [id number] 07:13:36EXAM: US ABDOMEN COMPLETE CLINICAL DATA: distention [...] volume ascites.Cholelithiasis without sonographic evidence of cholecystitis.[id number]_PS08 [facility] Abdomen Pelvis Wo [id number] 07:02:13Examination: CT ABDOMEN PELVIS WO CONTRAST Clinical [...] for cholecystitis.3. Right inguinal hernia containing ascites.1D2RAD_PS01[facility] duplex venous lower [id number] 03:27:00 Vascular Ultrasound Laboratory Lower Extremity Venous Report [address] [place] [address] Pat.Name: SRIKANTH TOMAS Pat.ID: [id number] .Date: 03/31/2020 Refer.MD: PHYSICIAN, EMERGENCY, MDExam Time: 8:17:00 PM Study Type:LE Venous Age: 12 1950,70Y Sex: MALE Sonogrphr: BREA Santiago, YOMI Pat. Stat.:Inpatient Room: [facility] ED E24 Tape Vol: SHANIA, CPT - 4: 53697 Echo Event ID:[id number] Order ID: [id number] Reason for Study:Leg swelling , DVT suspected.Procedures: [...] Peroneal Not Visualized Not Visualized Gastrocs Normal NormalRIGHT:There is normal compressibility with no evidence of echogenicmaterial noted within the lumen of the visualized veins. Color flowand Doppler signals are normal.LEFT: There is normal compressibility withno evidence ofechogenic material noted within the lumen [...] Normalcompressibility and augmentation of all veins visualized. FINDINGS:-------- MEASUREMENTS:--- DOPPLERGeneral Anatomy General Anatomy 0.527 s Signed 03/31/2020 09:27 PMDahliasolt Kaleb MD, RPVIInterface, Radiology Results In - 03/31/2020 9:28 PM CST Vascular Ultrasound Laboratory Lower Extremity Venous Report [address] [place] [address] Pat.Name: SRIKANTH TOMAS Pat.ID: [id number] .Date: 03/31/2020 Refer.MD: PHYSICIAN, EMERGENCY, Exestelle Time: 8:17:00 PM Study Type:LE Venous Age: 12 1950,70Y Sex:MALE Sonogrphr: BREA Santiago RCS Pat. Stat.:Inpatient Room: [facility] ED E24 Tape Vol: SHANIA, CPT - 4: 95286 Echo Event ID:[id number] Order ID: [id number] Reason for Study:Leg swelling , DVT suspected.Procedures: Colorflow, Grayscale/2D, Pulsed wave DopplerRace: D SUMMARY: DUPLEX SCAN OBSERVATIONS Deep Veins Superficial Veins Right LeftRight Left GSV (prox) Normal NormalCFV Normal Normal [...] are normal.PRELIMINARY FINDINGS:1. No evidence of venous thrombosisof the visualized veins,bilaterally.2. Technically difficult study due to leg swelling, bilaterally.*Preliminary result reported to KATIANA Gaston 2100 on 03/31/20.PHYSICIAN INTERPRETATION: Venous examination of the both lower extremities demonstrated noevidence of venous thrombosis in the visualized veins. Normalcompressibility and augmentation of all veins visualized. ------FINDINGS: -------MEASUREMENTS: DOPPLERGeneral Anatomy General Anatomy 0.527 s Signed 03/31/2020 09:27 Qamar Manuel MD, [facility]
[2021-12-09 08:47] LABS: Urine Blood 3+ (Negative); Urine Glucose Negative (Negative); Urine Protein 3+ (Negative); Urine pH 6.5 (5.0-7.0)
--- NOTE | 2021-12-09 08:53 | RAD REPORT ---
EXAM DESCRIPTION: CT - Head Brain Wo Cont - 12/09/2021 8:44 am CLINICAL HISTORY: Weakness COMPARISON: Head Brain Wo Cont dated 06/26/2020 TECHNIQUE: Axial 5 mm thick images of the head were obtained without IV contrast. All CT scans are performed using dose optimization technique as appropriate and may include automated exposure control or mA/KV adjustment according to patient size. FINDINGS: No intracranial hemorrhage, mass, edema or shift of mid-line structures. No acute infarcti on changes seen. No cortical edema or sulcal effacement. Patient has mild atrophy pattern stable from June 2020. Ventricles remain in proportion to the volume loss. A moderate cerebral white matter chron ic ischemic pattern also is stable. Physiologic and dense arterial calcifications are present. Mastoid air cells and visualized portions of the paranasal sinuses are clear. No acute bony findings. IMPRESSION: No hemorrhage or acute intracranial finding identifiable. Patient has atrophy and chronic ischemic findings match the June 2020 study.
--- NOTE | 2021-12-09 08:59 | RAD REPORT ---
EXAM DESCRIPTION: RAD - Chest Single View - 12/09/2021 8:50 am CLINICAL HISTORY: CHEST PAIN COMPARISON: Portable 06/22/2021 TECHNIQUE: AP portable chest image was obtained 12/09/2021 8:50 am . FINDINGS: Diffusely fibrotic lung pattern is seen accentuated by shallow inspiration. No peripheral mass or consolidation. A mild interstitial edema or infiltrate could be masked by the baseline. Signi ficant failure or volume overload are not suspected. Heart and vasculature are normal. No measurable pleural effusion and no pneumothorax. No acute bony abnormality seen. No acute aortic findings suspected. IMPRESSION: Chronic fibrotic lung pattern accentuated by shallow inspiration. No significant change from prior imaging.
[2021-12-09 09:27] LABS: Absolute Lymphocytes (CBC) 1.1 K/uL (0.7-4.9); Hematocrit 30.9 % (39.6-49.0); Lymphocytes % 32.3 % (15.3-44.8); MCV 87.8 fL (80-100); MPV 8.2 fL (7.6-11.3); RBC Red Blood Cell Count 3.52 M/uL (4.33-5.43)
[2021-12-09 09:34] LABS: Urine Crystals Unidentified Few /HPF (None Seen); Urine RBC >50 /HPF (None Seen); Urine WBC Clump Many /HPF (None Seen)
[2021-12-09 09:35] LABS: Protime INR 1.17
[2021-12-09 10:06] LABS: SARS-CoV-2 Antigen Rapid Res Negative (Negative)
[2021-12-09] MEDS ORDERED: CEFTRIAXONE 1000 MG/VIAL ONE (10:33)
[2021-12-09] MEDS ORDERED: NA CHLORIDE 0.9% 100 ML IV ONE (10:33)
[2021-12-09 11:22] LABS: Albumin 2.9 g/dL (3.4-5.0); Bilirubin Direct 0.2 mg/dL (0-0.2); Bilirubin Total 0.5 mg/dL (0.2-1.0); Magnesium 2.1 mg/dL (1.8-2.4); Potassium 4.1 mmol/L (3.5-5.1); Protein, Total 6.7 g/dL (6.4-8.2); Troponin High Sensitivity 11.4 pg/mL (<58.9)
[2021-12-09 13:30] LABS: Anisocytosis SLIGHT; Blood Morphology Comment NOTED (NOT SEEN); Platelet Estimate ADEQ
--- NOTE | 2021-12-09 14:53 | ER ---
Nurse's Notes [facility] Name: Dorian Cruz Age: 71 yrs Sex: Male : 1950 Arrival Date: 12/09/2021 Time: 08:03 Bed 8 Private MD: Jan Kenney Diagnosis: Chest pain, unspecified;UTI/ Urinary tract infection, site not specified Presentation: 12/09 08:21 Chief complaint: Patient states: weakness to R leg x 3 weeks, chest pain that began at ss 4 this morning and burning with urination and frequency x days. Denies fever. Coronavirus screen: Client denies travel out of the [place] in the last 14 days. Ebola Screen: Patient denies exposure to infectious person. Patient denies travel to an Ebola-affected area in the 21 days before illness onset. Initial Sepsis Screen: Does the patient meet any 2 criteria? No. Patient's initial sepsis screen is negative. Does the patient have a suspected source of infection? No. Patient's initial sepsis screen is negative. Risk Assessment: Do you want to hurt yourself or someone else? Patient reports no desire to harm self or others. Onset of symptoms is unknown. 08:21 Method Of Arrival: Ambulatory ss 08:21 Acuity: NGOC 3 ss Triage Assessment: 08:30 General: Appears in no apparent distress. Behavior is calm, cooperative, appropriate bp for age. Pain: Complains of pain in right leg. EENT: No deficits noted. Neuro: No deficits noted. Cardiovascular: Rhythm is sinus rhythm. Respiratory: No deficits noted. GI: No signs and/or symptoms were reported involving the gastrointestinal system. : No signs and/or symptoms were reported regarding the genitourinary system. Derm: No deficits noted. Musculoskeletal: No deficits noted. Historical: - Allergies: 08:24 Codeine; ss - PMHx: 08:24 Cirrhosis; Hepatitis; ss - PSHx: 08:24 kidney transplant; Left knee sx; Liver transplant x2; Tonsillectomy; ss - Immunization history:: Client reports receiving the 2nd dose of the Covid vaccine. - Social history:: Smoking status: Patient denies any tobacco usage or history of. Screenin:30 Abuse screen: Denies threats or abuse. Denies injuries from another. Nutritional bp screening: No deficits noted. Tuberculosis screening: No symptoms or risk factors identified. Fall Risk None identified. Assessment: 08:30 General: SEE TRIAGE NOTE. bp 09:30 Reassessment: PHLEBOTOMY CONTACTED FOR REDRAW AND 2ND BLOOD CX. bp 10:50 Reassessment: RECOLLECT COMPLETED BY PHLEBOTOMY. bp 11:30 Reassessment: No changes from previously documented assessment. Patient and/or family bp updated on plan of care and expected duration. Pain level reassessed. 13:50 Reassessment: No changes from previously documented assessment. Patient and/or family bp updated on plan of care and expected duration. Pain level reassessed. Pain: Denies pain. 15:30 Reassessment: PT D/C HOME VIA W/C WITH FAMILY. bp Vital Signs: 08:21 BP 109 / 65; Pulse 99; Resp 18; Temp 97.9; Pulse Ox 100% on R/A; Weight 73.48 kg; bp Height 5 ft. 10 in. (177.80 cm); Pain 4/10; 09:30 BP 97 / 60; Pulse 96; Resp 18; Pulse Ox 100% ; bp 10:50 BP 103 / 69; Pulse 89; Resp 25; Pulse Ox 100% ; bp 11:30 BP 107 / 68; Pulse 89; Resp 15; Pulse Ox 98% ; bp 13:50 BP 115 / 64; Pulse 86; Resp 25; Pulse Ox 100% ; bp 15:30 BP 121 / 77; Pulse 85; Resp 26; Pulse Ox 100% ; bp 08:21 Body Mass Index 23.24 (73.48 kg, 177.80 cm) bp ED Course: 08:03 Patient arrived in ED. am2 08:03 Jan Kenney MD is Private Physician. am2 08:05 [facility] Gutierrez [facility] pm1 08:05 Fredrick Bell MD is Attending Physician. pm1 08:06 Fredrick Bell MD is Attending Physician. pm1 08:18 Madi Martin, JENNIFER is Primary Nurse. bp 08:24 Triage completed. ss 08:24 Arm band placed on right wrist. ss 08:30 Patient has correct armband on for positive identification. Bed in low position. Call bp light in reach. Side rails up X2. Client placed on continuous cardiac and pulse oximetry monitoring. NIBP monitoring applied. 08:30 Inserted saline lock: 22 gauge in left forearm, using aseptic technique. Patient bp maintains SpO2 saturation greater than 95% on room air. 08:44 CT Head Brain wo Cont In Process Unspecified. EDMS 08:53 XRAY Chest (1 view) In Process Unspecified. EDMS 15:30 No provider procedures requiring assistance completed. IV discontinued, intact, bp bleeding controlled, No redness/swelling at site. Pressure dressing applied. Administered Medications: 10:50 Drug: Rocephin (cefTRIAXone) 1 grams Route: IV; Rate: calculated rate; Site: left bp forearm; 15:33 Follow up: IV Status: Completed infusion; IV Intake: 1000ml bp Medication: 08:30 VIS not applicable for this client. bp Intake: 15:33 IV: 1000ml; Total: 1000ml. bp Outcome: 14:53 Discharge ordered by MD. pm1 15:30 Discharged to home via wheelchair. bp 15:30 Condition: stable 15:30 Discharge instructions given to patient, family, Instructed on discharge instructions, follow up and referral plans. medication usage, Demonstrated understanding of instructions, follow-up care, medications, Prescriptions given X 1. 15:33 Patient left the ED. bp Addendum: 12/15/2021 08:43 Addendum: Culture Results: Positive urine culture. Bacteria is resistant to, has s s intermediate sensitivity, or is not tested against prescribed antibiotics. Report given to XIAO for further evaluation and then to field pipe lines supervisor for follow up with patient. Phone call Attempt #1 CAlled number on file and left VM. Signatures: Dispatcher Zuli EDID Stefany Mcconnell RN RN ss Tavo Gutierrez, DEN MICROELECTRONICS TECHNICIAN pm1 Nhi Gutierrez am2 Madi Martin RN RN bp Corrections: (The following items were deleted from the chart) 12/09 09:03 08:21 BP 109 / 65; Pulse 99bpm; Resp 18bpm; Pulse Ox 100% RA; 73.48 kg; Height 5 ft. 10 bp in.; BMI: 23.2; Pain 4/10; ss 10:02 09:59 Reassessment: PHLEBOTOMY CONTACTED FOR REDRAW AND 2ND BLOOD CX bp bp
--- NOTE | 2021-12-09 14:54 | EDPHYS ---
Physician Documentation [facility] Name: Dorian Cruz Age: 71 yrs Sex: Male : 1950 Arrival Date: 12/09/2021 Time: 08:03 Bed 8 Private MD: Jan Kenney ED Physician Fredrick Bell HPI: 12/09 08:21 This 71 yrs old Male presents to ER via Ambulatory with complaints of Chest Pain. pm1 08:21 The patient or guardian reports chest pain that is located primarily in the mid-sternal pm1 area. Onset: this morning, at 04:00. The pain does not radiate. Associated signs and symptoms: Pertinent positives: right leg weakness for the past 3 weeks and burning with urination. The chest pain is described as sharp. Duration: The patient or guardian reports a single episode, that is still ongoing. Modifying factors: The symptoms are alleviated by nothing. the symptoms are aggravated by nothing. Severity of pain: in the emergency department the pain is unchanged. The patient has not experienced similar symptoms in the past, multiple episodes of UTI per patient and sister and weakness to right leg for the past three weeks. 08:21 Patient reports weakness of his right leg that resulted in a fall 3 weeks ago and this pm1 morning where he slide down against the wall. Negative for head injury, headache, LOC, neck pain. Patient landed on his buttocks. negative for back pain, hip pain, tailbone pain. Historical: - Allergies: 08:24 Codeine; ss - PMHx: 08:24 Cirrhosis; Hepatitis; ss - PSHx: 08:24 kidney transplant; Left knee sx; Liver transplant x2; Tonsillectomy; ss - Immunization history:: Client reports receiving the 2nd dose of the Covid vaccine. - Social history:: Smoking status: Patient denies any tobacco usage or history of. ROS: 08:21 Constitutional: Negative for fever, chills, and weight loss, Respiratory: Negative for pm1 shortness of breath, cough, wheezing, and pleuritic chest pain. 08:21 Abdomen/GI: Negative for abdominal pain, nausea, vomiting, diarrhea, and constipation, Back: Negative for injury and pain, MS/Extremity: Negative for injury and deformity, Skin: Negative for injury, rash, and discoloration. 08:21 Cardiovascular: Positive for chest pain, Negative for edema, palpitations. 08:21 Neuro: Positive for weakness to right leg, Negative for headache. 08:21 All other systems are negative. Exam: 08:21 Constitutional: This is a well developed, well nourished patient who is awake, alert, pm1 and in no acute distress. Head/Face: Normocephalic, atraumatic. 08:21 Back: No spinal tenderness. No costovertebral tenderness. Full range of motion. Skin: Warm, dry with normal turgor. Normal color with no rashes, no lesions, and no evidence of cellulitis. MS/ Extremity: Pulses equal, no cyanosis. Neurovascular intact. Full, normal range of motion. 08:21 Cardiovascular: Exam negative for acute changes, Rate: normal, Rhythm: regular, Pulses: no pulse deficits are appreciated, Heart sounds: normal, normal S1and S2. 08:21 Respiratory: Exam negative for acute changes, respiratory distress, shortness of breath, Breath sounds: are clear throughout. 08:21 Abdomen/GI: Inspection: abdomen appears normal, Palpation: abdomen is soft and non-tender, in all quadrants. 08:21 Neuro: Exam negative for acute changes, Orientation: is normal, Mentation: is normal, Motor: is normal, moves all fours. Vital Signs: 08:21 BP 109 / 65; Pulse 99; Resp 18; Temp 97.9; Pulse Ox 100% on R/A; Weight 73.48 kg; bp Height 5 ft. 10 in. (177.80 cm); Pain 4/10; 09:30 BP 97 / 60; Pulse 96; Resp 18; Pulse Ox 100% ; bp 10:50 BP 103 / 69; Pulse 89; Resp 25; Pulse Ox 100% ; bp 11:30 BP 107 / 68; Pulse 89; Resp 15; Pulse Ox 98% ; bp 13:50 BP 115 / 64; Pulse 86; Resp 25; Pulse Ox 100% ; bp 15:30 BP 121 / 77; Pulse 85; Resp 26; Pulse Ox 100% ; bp 08:21 Body Mass Index 23.24 (73.48 kg, 177.80 cm) bp MDM: 08:10 Patient medically screened. [facility] 12:34 Data reviewed: vital signs. Data interpreted: Pulse oximetry: on room air is 98 %. pm1 Interpretation: normal. 14:52 Counseling: I had a detailed discussion with the patient and/or guardian regarding: the pm1 historical points, exam findings, and any diagnostic results supporting the discharge/admit diagnosis, lab results, radiology results, the need for outpatient follow up, to return to the emergency department if symptoms worsen or persist or if there are any questions or concerns that arise at home. 14:53 ED course: Discussed with attending plan of care for the patient. Give patient Rocephin pm1 in the ER and prescribe prescription for Vantin with follow up within 48 hours to his transplant team. Called Jerry Kelley, patient's project coordinator and informed her of the plan of care. Faxed her copy of work up and she will contact the patient to coordinate follow up visit and labs. 12/09 08:21 Order name: Basic Metabolic Panel; Complete Time: 11:23 pm1 12/09 08:21 Order name: CBC with Diff; Complete Time: 14:23 pm1 12/09 08:21 Order name: LFT's; Complete Time: 11:23 pm1 12/09 08:21 Order name: Magnesium; Complete Time: 11:23 pm1 12/09 08:21 Order name: NT PRO-BNP; Complete Time: 11:23 pm1 12/09 08:21 Order name: PT-INR; Complete Time: 09:35 pm1 12/09 08:21 Order name: Troponin HS; Complete Time: 11:23 pm1 12/09 08:21 Order name: Urine Microscopic Only; Complete Time: 09:35 pm1 12/09 08:23 Order name: SARS RAPID; Complete Time: 10:31 pm1 12/09 08:47 Order name: Urine Dipstick-Ancillary; Complete Time: 08:53 EDMS 12/09 09:00 Order name: Procalcitonin; Complete Time: 15:18 pm1 12/09 09:00 Order name: Lactate; Complete Time: 11:20 pm1 12/09 09:04 Order name: Blood Culture Adult (2) pm1 12/09 09:38 Order name: Urine Culture EDMS 12/09 08:21 Order name: XRAY Chest (1 view); Complete Time: 09:05 pm1 12/09 08:21 Order name: EKG; Complete Time: 08:22 pm1 12/09 08:21 Order name: Cardiac monitoring; Complete Time: 08:32 pm1 12/09 08:21 Order name: EKG - Nurse/Tech; Complete Time: 08:32 pm1 12/09 08:21 Order name: IV Saline Lock; Complete Time: 09:07 pm1 12/09 08:21 Order name: Labs collected and sent; Complete Time: 09:07 pm1 12/09 08:21 Order name: O2 Per Protocol; Complete Time: 08:32 pm1 12/09 08:21 Order name: O2 Sat Monitoring; Complete Time: 08:32 pm1 12/09 08:21 Order name: Urine Dipstick-Ancillary (obtain specimen); Complete Time: 09:07 pm1 12/09 08:29 Order name: CT Head Brain wo Cont; Complete Time: 08:56 pm1 12/09 09:30 Order name: Labs - recollect needed: all labs except blood culture; Complete Time: 10:50bd 12/09 09:47 Order name: Manual Differential; Complete Time: 14:23 EDMS 12/09 13:01 Order name: Troponin HS; Complete Time: 14:23 pm1 EC:55 Rate is 93 beats/min. Rhythm is regular, Normal Sinus Rhythm with No ectopy. QRS [place] pm1 is Normal. GA interval is normal. QRS interval is normal. QT interval is normal. No Q waves. T waves are Normal. No ST changes noted. Clinical impression: Normal ECG. Administered Medications: 10:50 Drug: Rocephin (cefTRIAXone) 1 grams Route: IV; Rate: calculated rate; Site: left bp forearm; 15:33 Follow up: IV Status: Completed infusion; IV Intake: 1000ml bp Disposition Summary: 12/09/21 14:53 Discharge Ordered Location: Home pm1 Problem: new pm1 Symptoms: have improved pm1 Condition: Stable pm1 Diagnosis - Chest pain, unspecified pm1 - UTI/ Urinary tract infection, site not specified pm1 Followup: pm1 - With: Emergency Department - When: As needed - Reason: Worsening of condition Followup: pm1 - With: Private Physician - When: 2 - 3 days - Reason: Recheck today's complaints, Continuance of care, Re-evaluation by your physician Discharge Instructions: - Discharge Summary Sheet pm1 - Nonspecific Chest Pain, Adult pm1 - Urinary Tract Infection, Adult pm1 Forms: - Medication Reconciliation Form pm1 - Thank You Letter pm1 - Antibiotic Education pm1 - Prescription Opioid Use pm1 Prescriptions: - cefpodoxime 200 mg Oral Tablet - take 1 tablet by ORAL route every 12 hours for 10 days with food; 20 tablet; pm1 Refills: 0, Product Selection Permitted Signatures: Dispatcher [employer] Amanda Luong Corey, MD MD cha Smirch, Shelby, RN RN ss Tavo Gutierrez, [employer] pm1 Madi Martin, RN RN bp
[2021-12-09 15:40] VITALS: TEMP 97.9
[2021-12-09 15:45] VITALS: O2SAT 100
[2021-12-09 15:46] VITALS: BP 121/77
--- NOTE | 2021-12-10 16:18 | EKG ---
Test Date: 2021-12-09 Test Time: 08:51:29 Manager Laundry: BP MEASUREMENT RESULTS: Intervals: Rate: 93 OR: 166 QRSD: 108 QT: 332 QTc: 412 [place]: P: 30 OR: 166 QRS: -18 T: 71 INTERPRETIVE STATEMENTS: Normal sinus rhythm Minimal voltage criteria for LVH, may be normal variant Borderline ECG Compared to ECG 06/22/2021 12:03:29 Myocardial infarct finding no longer present Electronically Signed On 12-10-21 16:15:39 CDT by Benjamín Ceron
== END 2021-12-09 15:33 | disposition home or self-care (01) ==
LOC: ER 07:57
DX: R07.89 Other chest pain (principal); N39.0 Urinary tract infection, site not specified; Z20.822 Contact with and (suspected) exposure to COVID-19; Z94.0 Kidney transplant status; Z94.4 Liver transplant status; Z88.5 Allergy status to narcotic agent
CPT/HCPCS: 36415; 70450; 71045; 80048; 80076; 81003; 81015; 83605; 83735; 83880; 84145; 84484; 85025; 85610; 87040; 87077; 87086; 87088; 87186; 87811; 93005; 96365; 96366; 99285